=== PATIENT | male | born 1940 | race Caucasian/White ===

== ENCOUNTER → 2016-11-16 | Outpatient (CLI) | payer MEDICARE ==
[2015-12-19 15:08] VITALS: BP 136/58
[~2016-11-16] MED LIST: ASCO10002 PO; ASPI-482 PO; CALC-159 PO; COCO1000 PO; ESOM40CA PO; EZET10TA3 PO; GEMF600T3 PO; KRIL500C PO; LOSA100T6 PO; METO-269 PO; MULT-246 PO; PROP150T2 PO; SILO8CAP PO; UBID200C4 PO; VITA400C36 PO
--- NOTE | 2016-11-16 09:58 | RAD ---
Bilateral lower extremity arterial Doppler History: Peripheral vascular disease, claudication. Comparison: 11/19/2015 Findings: Grayscale, color Doppler, and spectral Doppler imaging was performed of the arteries of both lower extremities. The common femoral artery, superficial femoral artery, profunda femoral artery, popliteal artery, peroneal artery, anterior tibial artery, posterior tibial artery, and dorsalis pedis artery were evaluated. Arteries of the right lower extremity demonstrate that the right common femoral artery and profunda femoral artery demonstrate biphasic waveforms. The proximal right superficial femoral artery demonstrates triphasic waveforms while the mid and distal superficial femoral artery demonstrate monophasic waveforms as do the more distal arteries. There is a focal elevation of velocity at the right popliteal artery suggesting hemodynamically significant stenosis. Right posterior tibial artery is occluded. Arteries of left lower extremity are patent. The left common femoral artery demonstrates biphasic waveforms. The left superficial femoral artery demonstrate biphasic waveforms and presence of stent which is patent. Left popliteal artery demonstrates biphasic waveforms. The following velocities were obtained: Right common femoral artery 190 cm/sec Right superficial femoral artery 144 cm/sec Right popliteal artery 378 cm/sec Right posterior tibial artery occluded Right dorsalis pedis artery 28 cm/sec Left common femoral artery 133 cm/sec Left superficial femoral artery 145 cm/sec Left popliteal artery 177 cm/sec Left posterior tibial artery 89 cm/sec Left dorsalis pedis artery 121 cm/sec Impression: 1. Elevated velocity seen involving the right popliteal artery, compatible with focal, hemodynamically significant stenosis estimated at greater than 50%. 2. Right posterior tibial artery is chronically occluded. 3. Left superficial femoral arterial stent is patent. All arteries of left lower extremity are patent.
== END | disposition home or self-care (01) ==
LOC: US 08:44
PROVIDERS: ATTEND Internal Medicine Cardiovascular Disease
DX: I73.9 Peripheral vascular disease, unspecified (principal)
CPT/HCPCS: 93925

== ENCOUNTER 2016-12-23 08:27 | Outpatient (CLI) | payer MEDICARE ==
[~2016-12-23] VITALS: Ht 182.9 cm; Wt 113.4 kg
[2016-12-23] VITALS (10 sets, daily range): BP systolic 150–200; BP diastolic 60–81
[~2016-12-23 08:27] MED LIST changes: +EZET10TA18 PO; -EZET10TA3 PO; -UBID200C4 PO; +UBID200C7 PO
[2016-12-23 09:10] LABS: BASO % 0 % (0-3); EOS % 2 % (0-3); HEMATOCRIT 39.6 % (39.0-53.0); LYMPH # 1.6 x10^3/uL (1.0-4.8); LYMPH % 19 % (24-48); MEAN CORPUSCULAR HEMOGLOBIN 30 pg (25-35); MEAN CORPUSCULAR HGB CONC 33 g/dL (31-37); MEAN CORPUSCULAR VOLUME 92 fL (79-100); MONO % 10 % (0-9); NEUT % 70 % (31-73); PLATELET COUNT 326 x10^3/uL (140-400); RED BLOOD COUNT 4.31 x10^6/uL (4.30-5.70); RED CELL DISTRIBUTION WIDTH 14.5 % (11.5-14.5); WHITE BLOOD COUNT 8.6 x10^3/uL (4.0-11.0)
[2016-12-23 09:18] LABS: CALCIUM 8.9 mg/dL (8.5-10.1)
[2016-12-23 09:19] LABS: GFR 32.7; POTASSIUM 4.7 mmol/L (3.5-5.1)
[2016-12-23 09:24] LABS: ALBUMIN 3.5 g/dL (3.4-5.0); TOTAL BILIRUBIN 0.3 mg/dL (0.2-1.0)
[2016-12-23 09:59] LABS: INR 1.3 (0.8-1.1)
[2016-12-23] MEDS ORDERED: LIDOCAINE 1% / SOD BICARB 8.4% 20 ML VIAL. IJ ONE ×2 (10:15→11:00)
[2016-12-23] MEDS ORDERED: HEPARIN for ARTERIAL LINE 1,500 ML ONE (10:15)
[2016-12-23] MEDS ORDERED: IODIXANOL 320 MG/ML 100 ML VIAL. ONE (10:15)
[2016-12-23] MEDS ORDERED: MIDAZOLAM HCL/PF 5 MG/5 ML VIAL. ONE (10:17)
[2016-12-23] MEDS ORDERED: fentaNYL PF VIAL 250 MCG/5 ML VIAL ONE (10:18)
[2016-12-23] MEDS ORDERED: ESOM40CA PO (10:19)
[2016-12-23] MEDS ORDERED: SILO8CAP PO (10:19)
[2016-12-23] MEDS ORDERED: HYDR-2766 PO (10:19)
[2016-12-23] MEDS ORDERED: CLOP75TA PO (10:19)
[2016-12-23] MEDS ORDERED: TEST200V3 IM (10:19)
[2016-12-23] MEDS ORDERED: IV NORMAL SALINE 1000ML BAG 1,000 ML IV ONE (10:30)
[2016-12-23] MEDS ORDERED: fentaNYL PF VIAL 250 MCG/5 ML VIAL IV ONE (11:00)
[2016-12-23] MEDS ORDERED: IODIXANOL 320 MG/ML 100 ML VIAL. IART ONE (11:00)
[2016-12-23] MEDS ORDERED: MIDAZOLAM HCL/PF 5 MG/5 ML VIAL. IV ONE (11:00)
[2016-12-23] MEDS ORDERED: HEPARIN for IV BOLUS 10,000 UNIT/10 ML VIAL. ONE (11:03)
[2016-12-23] MEDS ORDERED: HEPARIN for IV BOLUS 10,000 UNIT/10 ML VIAL. IV ONE (11:30)
--- NOTE | 2016-12-24 08:10 | RAD ---
12/23/2016 1. Pelvic angiography (CO2 angiography) 2. Right lower extremity angiography 3. Conventional and subsequent drug coated balloon Angioplasty of a high-grade stenosis of the above the knee right popliteal artery Indication: Recurrent right lower extremity calf claudication Discussion: The risks and benefits of the procedure including bleeding, vascular injury, pain, and contrast neuropathy were discussed the patient. Informed consent was obtained. 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 The patient was brought to the fluoroscopy suite and placed in supine position. A timeout procedure was performed. The left groin was prepped and draped using maximum sterile barrier technique. Ultrasound and fluoroscopic guidance was used to achieve left common femoral arterial access. 5 Ecuadorean vascular sheath was placed. Angiography confirmed access site. Nominal flush catheter was advanced to the inferior aorta. CO2 angiography of the pelvis was performed. Aorta and bilateral common iliac arteries demonstrate mild areas of ectasia with minimal proximal common iliac artery stenosis, similar to prior studies. External iliac arteries are patent. Common femoral arteries are patent. Omni Flush catheter and Skulptson wire were used to cross the aortic bifurcation. Right lower extremity CO2 angiography was initially performed demonstrating no lesion of the proximal SFA. Contrast angiography was then performed demonstrating minimal nonflow limiting stenosis in the mid SFA and high-grade stenosis of the above the knee popliteal artery at the junction of the SFA and popliteal artery. The posterior tibial artery is occluded. The anterior tibial artery is patent. Peroneal artery appears patent to the mid leg. A 6 Ecuadorean Ansell 2 up and over sheath was placed into the right SFA. The high-grade stenosis of the popliteal artery was crossed with an advantage glide wire. Balloon angioplasty was performed with 4 x 40 mm balloon. The lesion responded well to conventional angioplasty with only minimal residual narrowing. Angioplasty was repeated with a 4 mm drug-eluting balloon demonstrating significantly improved flow morphology of the lesion with respect to original angiograms. No significant residual narrowing was seen. The wire and sheath were then removed. Hemostasis of the left groin was achieved following deployment of an Angio-Seal device. No immediate complications were identified. The patient tolerated the procedure well. Fluoroscopy time: 12.0 minutes. DAP: 462 Gycm2 The procedure was performed conscious sedation including continuous cardiopulmonary monitoring via a dedicated sedation nurse. Sedation time 1 hour 20 minutes. 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
== END 2016-12-23 15:15 | disposition home or self-care (01) ==
LOC: INTRAD 08:27
PROVIDERS: ATTEND Specialist
DX: I70.211 Atherosclerosis of native arteries of extremities with intermittent claudication, right leg (principal); E78.00 Pure hypercholesterolemia, unspecified; Z87.39 Personal history of other diseases of the musculoskeletal system and connective tissue; Z96.642 Presence of left artificial hip joint; K21.9 Gastro-esophageal reflux disease without esophagitis; I12.9 Hypertensive chronic kidney disease with stage 1 through stage 4 chronic kidney disease, or unspecified chronic kidney disease; E11.22 Type 2 diabetes mellitus with diabetic chronic kidney disease; N18.9 Chronic kidney disease, unspecified; Z88.0 Allergy status to penicillin; Z88.8 Allergy status to other drugs, medicaments and biological substances
CPT/HCPCS: 36415; 37224; 75625; 75710; 76937; 80053; 85027; 85610; 99152; 99153; C1713; C1725; C1760; C1769; C1892; C1894; C2623; G0269; J2250; J3010; J7030; Q9967; C1887; J1644

== ENCOUNTER → 2017-08-09 | Outpatient (CLI) | payer MEDICARE | END | disposition home or self-care (01) | LOC: ECHO 08:55 | DX: I10 Essential (primary) hypertension (principal); I27.20 Pulmonary hypertension, unspecified; I08.3 Combined rheumatic disorders of mitral, aortic and tricuspid valves; I70.0 Atherosclerosis of aorta | CPT/HCPCS: 93306 ==

== ENCOUNTER → 2018-06-07 | Outpatient (CLI) | payer MEDICARE ==
[2016-12-23 14:30] VITALS: BP 180/80
[~2018-06-07] MED LIST changes: +CLOP75TA PO; -GEMF600T3 PO; +GEMF600T8 PO; +HYDR-2769 PO; +LOSA100T14 PO; -LOSA100T6 PO; -SILO8CAP PO; +SILO8CAP2 PO; +TEST200V3 IM
--- NOTE | 2018-06-12 10:07 | PATHOLOGY ---
[facility] Accession Number: [id number] . 01 Material submitted: . LEFT FOOT WOUND . 01 Clinical history: . Gout L foot, cyst . 02 Diagnosis: Soft tissue, "left foot wound", debridement: - Acute abscess and associated fibrin. - Possible crystalline material present (please see comment). (SK:rupali; 06/09/2018) [facility]/06/09/2018 . 02 Comment: Possible crystalline material is present which could be consistent with gout, however, identification of gout crystals requires that the specimen be submitted in alcohol. (SKM:rupali; 06/09/2018) . 02 Electronically signed: . Ernie Eden MD, Pathologist NPI- [id number] . 01 Gross description: . The specimen is received in formalin, labeled "Dru Bardales, L foot wound". Received are multiple segments of pale mack to yellow-mack soft tissue measuring 2.0 x 1.3 x 0.5 cm in aggregate dimensions. The specimen is filtered and entirely submitted in cassette A1. ([facility]; 06/08/2018) QAC/QAC . 02 Pathologist provided ICD-10: L02.612 . 02 CPT . 974898 Specimen Comment: A courtesy copy of this report has been sent to Specimen Comment: [phone], . Specimen Comment: Report sent to / DR KLEIN Specimen Comment: A duplicate report has been generated due to demographic updates. Performed at: [address], [place], [place] [id number] MD Alfred Roberts MD Phone: [phone] Performed at: 02 [facility] [address] [place], [place] [id number] MD Vik Gómez MD Phone: [phone]
== END | disposition home or self-care (01) ==
LOC: SPEC 13:38
PROVIDERS: ATTEND Podiatrist
DX: L02.612 Cutaneous abscess of left foot (principal)
CPT/HCPCS: 88304

== ENCOUNTER → 2018-06-14 | Outpatient (CLI) | payer MEDICARE ==
[2016-12-23 14:30] VITALS: BP 180/80
--- NOTE | 2018-06-19 15:07 | PATHOLOGY ---
[facility] Accession Number: [id number] . 01 Material submitted: . GOUT CRYSTALS LEFT FOOT . 01 Clinical history: . Gout . 02 Diagnosis: Tissue from left foot: - Necrotic tissue with focal acute inflammation. [facility]/06/19/2018 . 02 Comment: No gout crystals are identified. (JPM:[facility] 06/19/2018) . 02 Electronically signed: . Vik Gómez MD, Pathologist NPI- [id number] . 01 Gross description: . The specimen is received, labeled "Dru Bardales". The site is designated on the requisition as, "left foot". Received is a slight amount of white-mack chalky material admixed with possible soft tissue measuring 0.7 x 0.6 x 0.1 cm in aggregate dimensions. The specimen is filtered and entirely submitted in cassette A1. The specimen is lodaded onto the process in 70% alcohol and is not exposed to formalin. ([facility]; 06/16/2018) QAC/QAC . 02 Pathologist provided ICD-10: I96 . 02 CPT . 155039 Specimen Comment: A courtesy copy of this report has been sent to Specimen Comment: [phone], . Specimen Comment: Report sent to and Specimen Comment: A duplicate report has been generated due to demographic updates. Performed at: 01 [facility] [address] [facility] [address], [place] [id number] MD Alfred Roberts MD Phone: [phone] Performed at: [address] [facility] [address] [place], [place] [id number] MD Vik Gómez MD Phone: [phone]
== END | disposition home or self-care (01) ==
LOC: SPEC 16:03
PROVIDERS: ATTEND Podiatrist
DX: I96 Gangrene, not elsewhere classified (principal)
CPT/HCPCS: 88304

== ENCOUNTER 2018-09-06 12:33 | Inpatient (IN) | payer MEDICARE ==
[~2018-09-06] VITALS: Ht 182.9 cm; Wt 103.2 kg
--- NOTE | 2018-09-06 12:57 | EKG ---
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
--- NOTE | 2018-09-06 13:19 | RAD ---
Single view of the chest. 09/06/2018 1:03 PM Indication: CHEST PAIN Comparison: Chest radiograph August 22, 2011 Findings: No new focal consolidation or infiltrate is seen. No pleural effusion or pneumothorax is identified. Heart is mildly enlarged. Prior median sternotomy noted. Patchy opacities throughout the bilateral lungs are stable going back to 2011, likely representing pleural parenchymal scarring. Component of pleural calcification may be present. Impression: Stable radiographic appearance of the chest without evidence of acute cardiopulmonary process Electronically signed by: Emir Baltazar MD (09/06/2018 1:16 PM) [facility]
[2018-09-06 13:20] LABS: BASO % 0 % (0-3); EOS # 0.1 x10^3/uL (0.0-0.7); EOS % 2 % (0-3); HEMATOCRIT 36.3 % (39.0-53.0); HEMOGLOBIN 11.7 g/dL (13.0-17.5); LYMPH # 1.2 x10^3/uL (1.0-4.8); LYMPH % 15 % (24-48); MEAN CORPUSCULAR HEMOGLOBIN 30 pg (25-35); MEAN CORPUSCULAR HGB CONC 32 g/dL (31-37); MEAN CORPUSCULAR VOLUME 94 fL (79-100); MONO # 0.7 x10^3/uL (0.0-1.1); MONO % 9 % (0-9); NEUT # 5.6 x10^3uL (1.8-7.7); NEUT % 73 % (31-73); PLATELET COUNT 252 x10^3/uL (140-400); RED BLOOD COUNT 3.86 x10^6/uL (4.30-5.70); RED CELL DISTRIBUTION WIDTH 15.7 % (11.5-14.5); WHITE BLOOD COUNT 7.7 x10^3/uL (4.0-11.0)
[2018-09-06 13:24] LABS: CALCIUM 9.5 mg/dL (8.5-10.1); CREATININE 2.1 mg/dL (0.7-1.3); GFR 30.8
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
[2018-09-06 13:29] LABS: PROTHROMBIN TIME PATIENT 15.5 SEC (11.7-14.0)
[2018-09-06 13:31] LABS: ALBUMIN 3.8 g/dL (3.4-5.0); ALBUMIN/GLOBULIN RATIO 1.1 (1.0-1.7); MAGNESIUM 2.2 mg/dL (1.8-2.4); TOTAL BILIRUBIN 0.7 mg/dL (0.2-1.0); TOTAL PROTEIN 7.4 g/dL (6.4-8.2)
--- NOTE | 2018-09-06 13:32 | PDOC2 ---
KEENAN LORD FORK LIFT MECHANIC 09/06/18 1332: CARDIAC CONSULT DATE OF CONSULT Date of Consult DATE: 09/06/18 TIME: 13:23 REASON FOR CONSULT Reason for Consult: Arrhythmia REFERRING PHYSICIAN Referring Physician: Corby SOURCE Source: Chart review, Patient HISTORY OF PRESENT ILLNESS HISTORY OF PRESENT ILLNESS This is a pleasant 78 yo male admitted for complains of shortness of breath. Reports that in the last 3-4 days he has been having PND, orthopnea. He is mainly a side lying when he sleeps due to his spinal issue but he has been getting more often in the last few days. Positive for leg swelling and he is not on any diuretics. Positive for ROBERTS. He went to his PCP and told her his symptoms and EKG was done and noted irregular rhythm/. He has notfolowed up recently with any winch stripper except for vascular surgery , Dr Maurer who has been managing his PAD and recently had appears to be CASH POSTER to his LLE and also needing his RLE at some point. He has a poor healing wound to his doral right foot and also has issue with gout. Reports he used to see Dr. Soto. He has never been told of any significant arrhythmias nor any need for AICD but was placed on amiodarone and statin before but was not able to tolerate and at home he is on rythmol and toprol and was noted with EF of 35% in the past. He has not had any LHC or stress test since his CABG in 2010. Denies any palpitations, nausea or vomiting and no passing out but has been having some dizziness at times. No chest pain or jaw tightness. PAST MEDICAL HISTORY Cardiovascular: CAD, HTN, Hyperlipidemia, Valve insufficiency, Other (PAD) GI: Constipation, GERD Hepatobiliary: No pertinent hx Psych: No pertinent hx Musculoskeletal: Osteoarthritis Rheumatologic: Gout Infectious disease: No pertinent hx ENT: Other (sinusitis) Renal/: Chronic renal insuff, Benign prostatic enlarg. PAST SURGICAL HISTORY Past Surgical History: Arthroscopy (right), CABG (x2 in 2010), Total hip replacement (left), Other (CASH POSTER right popliteal; LSFA stent; neck fusion; recent LLE percutaneous CASH POSTER per Dr. Maurer at [facility]) FAMILY HISTORY Family History: Heart Disease SOCIAL HISTORY Smoke: Quit (remotely) ALCOHOL: none Drugs: None Lives: with Family ALLERGIES ALLERGIES: Coded Allergies: Penicillins (Verified Allergy, Intermediate, rash, 09/06/18) amiodarone (Verified Allergy, Intermediate, 12/23/16) ROS Review of System 14 point ROS evaluated with pertinent positives noted per HPI PHYSICAL EXAM General: Alert, Oriented X3, Cooperative, No acute distress HEENT: Atraumatic, Mucous membr. moist/pink Lungs: Other (faint basilar crackles) Heart: Regular rate, Other (S4, 3/6 systolic murmur to LLS border) Abdomen: Soft, No tenderness Extremities: No cyanosis, Other (3+ bilateral Le pitting edema) Skin: Other (Left foot poor healing ulcer) Neuro: Normal speech, Sensation intact Psych/Mental Status: Mental status NL, Mood NL MUSCULOSKELETAL: Osteoarthritic changes both hands VITALS VITALS Vital Signs Date Time Temp Pulse Resp B/P (MAP) Pulse Ox O2 Delivery O2 Flow Rate FiO2 09/06/18 12:54 97.8 57 19 134/63 (86) 97 Nasal Cannula 2.0 97.8 ECHOCARDIOGRAM ECHOCARDIOGRAM <Conclusion> The ejection fraction is moderately impaired. The Ejection Fraction is 35%. There is moderate to severe concentric left ventricular hypertrophy. Transmitral Doppler flow pattern is Grade IV-fixed restrictive diastolic dysfunction. The right ventricle is mildly dilated. Systolic function is mildly reduced. The left atrium is mildly dilated. The right atrium is mildly dilated. The aortic valve is calcified and the structures were poorly visualized Doppler and Color Flow revealed mild aortic regurgitation. This was a suboptimal doppler interrogation of the aortic valve and I cannot asses for aortic valve stenosis The mitral valve is moderately thickened. Mitral annular calcification is mild. Doppler and Color-flow revealed mild to moderate mitral regurgitation. Doppler and Color Flow revealed mild tricuspid regurgitation. The PA pressure was estimated at 35 mmHg. Mild Pulmonary HTN Suboptimal Doppler and Color Flow interrogation revealed pulmonic valvular regurgitation but difficult to quantify There is no evidence of significant pericardial effusion. DATE: 08/09/17 1636 ASSESSMENT/PLAN ASSESSMENT/PLAN 1. Acute on chronic systolic/diastolic CHF: no home diuretics 2. NSTEMI: initial trop at 0.399 3. PAFIB: noted with slow AFIB at PCPs office. also with junctional rhythm at 60s currently 4. DANNA on CKD 3: followed by Dr. Stewart as outpt 5. CAD: CABGx2 in 2010 6. HTN: controlled 7. HLP 8. DM. 2: diet controlled 9. Intolerant to amiodarone and statin 10. PAD with left foot ulcer: recent percutaneous revasc per Dr. Maurer at [facility] Recommendations 1. Continue toprol at lower dose. DC rythmol. 2. Monitor rhythm. TTE, TSH, lipids 3. Continue ASA and plavix. 4. Consult nephrology, lasix therapy 5. will need ischemic workup, MPI vs LHC but will take into account his renal function. will discuss with primary winch stripper 6. Lovenos x1. Norvasc x1. Hydralazine IV prn RONALDO DANIEL MD 09/06/187: CARDIAC CONSULT ASSESSMENT/PLAN ASSESSMENT/PLAN Pt. seen and examined. Agree with above ARMOR OFFICER note. 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 Symptoms consistent with HF. Would first continue medical therapy. PLan for MPI when more medically stable and if he has significant ischemia, could then offer LHC, otherwise medical therapy and plan for possible ICD on an outpt basis. KEENAN LORD APRN Sep 06, 2018 13:32 RONALDO ADNIEL MD Sep 06, 2018 18:17
[2018-09-06 13:39] LABS: CREATINE KINASE 50 U/L (39-308); FREE T4 0.91 ng/dL (0.76-1.46); THYROID STIM HORMONE (TSH) 3.227 uIU/mL (0.358-3.74)
[2018-09-06] MEDS ORDERED: IV NORMAL SALINE 1000ML BAG 1,000 ML IV SCH (14:10)
[2018-09-06] MEDS ORDERED: FUROSEMIDE 40 MG/4 ML VIAL. IVP ONE (14:15)
[2018-09-06] MEDS ORDERED: MORPHINE SULFATE 4 MG/ML VIAL. IV PRN (14:15)
[2018-09-06] MEDS ORDERED: ONDANSETRON PF 4 MG/2 ML VIAL. IV PRN ×2 (14:15→14:30)
--- NOTE | 2018-09-06 15:43 | HP ---
ADMIT DATE: 09/06/2018 CHIEF COMPLAINT: Shortness of breath. HISTORY OF PRESENT ILLNESS: The patient is a pleasant 78-year-old male well known to my service. He presents with shortness of breath. He has some associated swelling and abdominal distention. He is very weak. It has been occurring for several days. Moving makes it worse and still makes it better. Describes as irritating. I discussed the case with ER physician. It appears the patient is in heart failure once again. He is also bradycardic. We are going to admit the patient and consult Cardiology. PAST MEDICAL HISTORY: CHF, coronary bypass surgery, GERD, hypertension, hyperlipidemia, cardiac valve insufficiency, peripheral artery disease, osteoarthritis, chronic renal insufficiency, BPH, right leg surgery, total hip replacement, popliteal TPA, and a cervical fusion. ALLERGIES: AMIODARONE AND PENICILLIN. FAMILY HISTORY: Coronary artery disease. SOCIAL HISTORY: Does not drink, smoke or take drugs. He is . He is retired. MEDICATIONS: Reviewed. He is on 20 including Rapaflo, Plavix, propranolol, Zetia, gemfibrozil, Toprol-XL, losartan, aspirin, hydrocodone, calcium, Nexium, testosterone vitamins. REVIEW OF SYSTEMS: GENERAL: No history of weight change, weakness or fevers. SKIN: No bruising, hair changes or rashes. EYES: No blurred, double or loss of vision. NOSE AND THROAT: No history of nosebleeds, hoarseness or sore throat. HEART: He complains of palpitations. LUNGS: He complains of shortness of breath. GASTROINTESTINAL: Denies changes in appetite, nausea, vomiting, diarrhea or constipation. GENITOURINARY: No history of frequency, urgency, hesitancy or nocturia. NEUROLOGIC: Denies history of numbness, tingling, tremor or weakness. PSYCHIATRIC: No history of panic, anxiety or depression. ENDOCRINE: No history of heat or cold intolerance, polyuria or polydipsia. EXTREMITIES: Denies muscle weakness, joint pain, pain on walking or stiffness. PHYSICAL EXAMINATION: VITAL SIGNS: Temperature afebrile, pulse 54, respirations 20, blood pressure 134/60. GENERAL: He is alert, cooperative. His is present. HEART: Normal S1, S2, bradycardic. LUNGS: Coarse. ABDOMEN: Soft and distended. EXTREMITIES: 2+ edema. SKIN: No rashes. ENDOCRINE: No thyromegaly. LYMPHATICS: No cervical nodes. HEMATOPOIETIC: No bruising. PSYCHIATRIC: Stable. LABORATORY DATA: Hemoglobin is 11.7. BUN is high at 27, creatinine high at 2.1, glucose high at 129. BNP 5291. Chest x-ray shows vascular congestion. Troponin is 0.39. ASSESSMENT AND PLAN: Evieq-dq-[id number] systolic and diastolic heart failure. The patient is being admitted. We will use IV Lasix. Consult Cardiology. Cardiac enzymes, echocardiogram, serial EKGs. Deep venous thrombosis prophylaxis. We will resume home meds other than the ones that have a negative chronotropic effect. Frequent labs. PT, OT. PROGNOSIS: Guarded. JOLEEN ROSENBERG DO DR: NACHO/natasha JOB#: [id number] / [id number]
--- NOTE | 2018-09-06 16:58 | CARD ---
MR#: [id number] Date of Study: 09/06/2018 Ordering Physician: KEENAN LORD, Referring Physician: BRENDA PALM Tech: Josefina Harris HEATHER APPROVED REPORT EXAM: Two-dimensional and M-mode echocardiogram with Doppler and color Doppler. Other Information Quality : Good INDICATION Arrhythmia 2D DIMENSIONS RVDd3.1 (2.9-3.5cm)Left Atrium(2D)4.6 (1.6-4.0cm) IVSd1.3 (0.7-1.1cm)Aortic Root(2D)2.6 (2.0-3.7cm) LVDd5.5 (3.9-5.9cm)LVOT Diameter2.2 (1.8-2.4cm) PWd1.1 (0.7-1.1cm)LVDs4.5 (2.5-4.0cm) FS (%) 18.7 %SV56.9 ml Aortic Valve AoV Peak Tim.137.7cm/sAoV VTI29.5cm AO Peak GR.7.6mmHgLVOT Peak Tim.90.5cm/s AO Mean GR.3mmHgAVA (VMAX)2.46cm2 LAURA (VTI)3.28aj6RQ P 1/2 Eyny169yk Mitral Valve MV E Iqvqagnn862.7cm/sMV DECEL QTOQ740vq MV A Fprqdiex30.5cm/sE/A Ratio3.1 Tricuspid Valve TR P. Qyckjbks652rs/sRAP QYAZNWJA2hiSu TR Peak Gr.34csTqYYBG05rnZu LEFT VENTRICLE The Left Ventricle is borderline dilated. There is normal left ventricular wall thickness. Left ventr icle systolic function is moderate to severely impaired. The Ejection Fraction is estimated at 30%. T here is global hypokinesis of the left ventricle. RIGHT VENTRICLE The right ventricle is mildly dilated. The right ventricular systolic function is normal. ATRIA The left atrium is mildly dilated. The right atrium is mildly dilated. The interatrial septum is inta ct with no evidence for an atrial septal defect or patent foramen ovale as noted on 2-D or Doppler im aging. AORTIC VALVE The aortic valve is mildly thickened but opens well. Doppler and Color Flow revealed mild aortic regu rgitation. There is no significant aortic valvular stenosis. MITRAL VALVE The mitral valve is calcified but opens well. Mitral annular calcification is mild. There is no evide nce of mitral valve prolapse. There is no mitral valve stenosis. Doppler and Color-flow revealed mild mitral regurgitation. TRICUSPID VALVE The tricuspid valve is normal in structure and function. Doppler and Color Flow revealed mild tricusp id regurgitation. The PA pressure was estimated at 50 mmHg. There is no tricuspid valve stenosis. PULMONIC VALVE The pulmonic valve is not well visualized. Doppler and Color Flow revealed mild pulmonic valvular reg urgitation. There is no pulmonic valvular stenosis. GREAT VESSELS The aortic root is normal in size. The ascending aorta is normal in size. The IVC is dilated and zeina apses >50% with inspiration. PERICARDIAL EFFUSION There is no evidence of significant pericardial effusion. Critical Notification Critical Value: No <Conclusion> The Left Ventricle is borderline dilated. Left ventricle systolic function is moderate to severely impaired. The Ejection Fraction is estimated at 30%. There is global hypokinesis of the left ventricle. There is no significant aortic valvular stenosis. Doppler and Color Flow revealed mild aortic regurgitation. Doppler and Color-flow revealed mild mitral regurgitation. Doppler and Color Flow revealed mild tricuspid regurgitation. The PA pressure was estimated at 50 mmHg. Signed by : Kenneth Christy MD Electronically Approved : 09/06/2018 16:58:20
[2018-09-06] MEDS ORDERED: hydrALAZINE 20 MG/ML VIAL. IVP PRN (17:45)
[2018-09-06] MEDS ORDERED: amLODIPine BESYLATE 5 MG TABLET PO ONE (17:45)
[2018-09-06 20:15] VITALS: BP 155/70
--- NOTE | 2018-09-06 20:56 | NUR ---
consult called to dr lira
[2018-09-06] MEDS ORDERED: CEPH500C PO (21:37)
[2018-09-06] MEDS ORDERED: TAMS0.4C97 PO (21:37)
[2018-09-06] MEDS ORDERED: ALLO100T PO (21:37)
[2018-09-06] MEDS ORDERED: AMLO5TAB10 PO (21:37)
[2018-09-06 23:15] VITALS: BP 164/70
[2018-09-07 03:48] VITALS: BP 166/72
[2018-09-07 07:23] VITALS: BP 146/59
--- NOTE | 2018-09-07 08:37 | EKG ---
[facility] [address] [place] [address] Test Date: 2018-09-06 Test Time: 14:57:00 Pat Name: KATHRYN MEEKS Department: Room: 254 1 Gender: M Branch Operations Coordinator: : 1940 Requested By: JOLEEN ROSENBERG Order Number: [id number] Reading MD: Abhi Richter MD Measurements Intervals [place] Rate: 46 P: MN: QRS: 66 QRSD: 112 T: -25 QT: 466 QTc: 409 Interpretive Statements IRREGULAR RHYTHM, NO P-WAVE FOUND NON-SPECIFIC ST/T CHANGES Electronically Signed On 09-08-2018 16:32:47 CDT by Abhi Richter MD
[2018-09-07] MEDS: ASPIRIN ENTERIC COATED 81 MG TABLET.DR. PO SCH (08:42)
[2018-09-07] MEDS: CLOPIDOGREL BISULFATE 75 MG TABLET PO SCH (08:42)
[2018-09-07] MEDS: FUROSEMIDE 40 MG/4 ML VIAL. IVP SCH (08:43)
[2018-09-07] MEDS: METOPROLOL SUCC 24HR ER 25 MG TAB.ER.24H. PO SCH ×2 (08:43→15:16)
[2018-09-07] MEDS: LOSARTAN POTASSIUM 50 MG TABLET. PO SCH (08:43)
[2018-09-07] MEDS ORDERED: METO50TA4 PO (10:38)
--- NOTE | 2018-09-07 10:48 | PDOC ---
GEM MULLEN BACK PADDER 09/07/18 1048: CARDIO Progress Notes Date and Time Date of Service 09/07/18 Time of Evaluation 1015 Subjective Subjective: No Chest Pain, No Palpitations, Other (SOA improved significantly) Vitals Vitals Vital Signs Date Time Temp Pulse Resp B/P (MAP) Pulse Ox O2 Delivery O2 Flow Rate FiO2 09/07/18 08:43 74 146/59 09/07/18 08:00 Nasal Cannula 2.0 09/07/18 07:23 98.1 18 100 98.1 Weight Weight [ ] Input and Output Intake and Output Intake and Output 09/07/18 07:00 Intake Total 100 ml Output Total 2650 ml Balance -2550 ml Intake Oral 100 ml Output Urine Total 2650 ml # Voids 3 Laboratory Labs Laboratory Tests Test 09/06/18 13:00 09/06/18 21:05 White Blood Count 7.7 x10^3/uL (4.0-11.0) Red Blood Count 3.86 x10^6/uL (4.30-5.70) Hemoglobin 11.7 g/dL (13.0-17.5) Hematocrit 36.3 % (39.0-53.0) Mean Corpuscular Volume 94 fL (79-100) Mean Corpuscular Hemoglobin 30 pg (25-35) Mean Corpuscular Hemoglobin Concent 32 g/dL (31-37) Red Cell Distribution Width 15.7 % (11.5-14.5) Platelet Count 252 x10^3/uL (140-400) Neutrophils (%) (Auto) 73 % (31-73) Lymphocytes (%) (Auto) 15 % (24-48) Monocytes (%) (Auto) 9 % (0-9) Eosinophils (%) (Auto) 2 % (0-3) Basophils (%) (Auto) 0 % (0-3) Neutrophils # (Auto) 5.6 x10^3uL (1.8-7.7) Lymphocytes # (Auto) 1.2 x10^3/uL (1.0-4.8) Monocytes # (Auto) 0.7 x10^3/uL (0.0-1.1) Eosinophils # (Auto) 0.1 x10^3/uL (0.0-0.7) Basophils # (Auto) 0.0 x10^3/uL (0.0-0.2) Prothrombin Time 15.5 SEC (11.7-14.0) Prothromb Time International Ratio 1.3 (0.8-1.1) Sodium Level 141 mmol/L (136-145) Potassium Level 5.0 mmol/L (3.5-5.1) Chloride Level 103 mmol/L (98-107) Carbon Dioxide Level 27 mmol/L (21-32) Anion Gap 11 (6-14) Blood Urea Nitrogen 27 mg/dL (8-26) Creatinine 2.1 mg/dL (0.7-1.3) Estimated GFR (Cockcroft-Gault) 30.8 BUN/Creatinine Ratio 13 (6-20) Glucose Level 129 mg/dL (70-99) Calcium Level 9.5 mg/dL (8.5-10.1) Magnesium Level 2.2 mg/dL (1.8-2.4) Total Bilirubin 0.7 mg/dL (0.2-1.0) Aspartate Amino Transf (AST/SGOT) 18 U/L (15-37) Alanine Aminotransferase (ALT/SGPT) 25 U/L (16-63) Alkaline Phosphatase 102 U/L (46-116) Creatine Kinase 50 U/L (39-308) Creatine Kinase MB (Mass) 1.6 ng/mL (0.0-3.6) Creatine Kinase MB Relative Index % (0-4) Troponin I Quantitative 0.399 ng/mL (0.000-0.055) 0.377 ng/mL (0.000-0.055) OT-Chh-N-Type Natriuretic Peptide 5291 pg/mL (0-449) Total Protein 7.4 g/dL (6.4-8.2) Albumin 3.8 g/dL (3.4-5.0) Albumin/Globulin Ratio 1.1 (1.0-1.7) Triglycerides Level 100 mg/dL (0-150) Cholesterol Level 121 mg/dL (0-200) LDL Cholesterol, Calculated 77 mg/dL (0-100) VLDL Cholesterol, Calculated 20 mg/dL (0-40) Non-HDL Cholesterol Calculated 97 mg/dL (0-129) HDL Cholesterol 24 mg/dL (40-60) Cholesterol/HDL Ratio 5.0 Lipase 148 U/L (73-393) Thyroid Stimulating Hormone (TSH) 3.227 uIU/mL (0.358-3.74) Free Thyroxine 0.91 ng/dL (0.76-1.46) Physical Exam HEENT: Neck Supple W Full Motion Chest: Symmetric LUNGS: Other (faint bibasilar crackles) Heart: S1S2, murmurs (2/6 systolic murmur ), irregularly irregular (AFIB/ flutter) Abdomen: Soft N/T Extremities: Other (2+ bilateral LE edema ) Neurology: alert, oriented, follow commands Assessment Assessment 1. Acute on chronic systolic/diastolic CHF; LVEF 30%. better compensated following diuresis. -2.5 L overall 2. NSTEMI: trop peak 0.399. CP free 3. PAFIB: remains in AFIB/flutter rate near 60. 4. DANNA on CKD 5. CAD: CABGx2 in 2010 6. HTN: mildly elevated 7. HLP 8. DM, II Recommendations BMP Continue diuresis Secondary prevention including ASA, plavix, BB, and ARB. Ischemic workup with stress test today to r/o ischemia Received Lovenox last night. Start OAC with Eliquis pending stress test results. Supportive care RONALDO DANIEL MD 09/07/18 1649: CARDIO Progress Notes Plan Plan Pt. seen and examined. 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 Doing better now. His Cr is improving. Will ask nephrology to see him to determine his BP meds, (apparently Dr. Stewart stopped his losartan and put him on amlodipine) Will obtain outpt muga scan in 3 months to determine EF and need for ICD due to echo/MPI discrepancy. Supportive care. GEM MULLEN APRN Sep 07, 2018 10:48 RONALDO DANIEL MD Sep 07, 2018 16:49
[2018-09-07 11:08] VITALS: BP 118/64
--- NOTE | 2018-09-07 12:00 | PDOC ---
PROGRESS NOTES Chief Complaint Chief Complaint ASSESSMENT AND PLAN: [id number] systolic and diastolic heart failure. Ejection Fraction is estimated at 30%.global hypokinesis of the left ventricle. There is a large sized, basal to distal inferior, inferolateral and lateral FIXED perfusion defect suggestive of prior infarct with mild davian-infarct viability. The PA pressure was estimated at 50 mmHg. 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 CKD stage3- 4 DANNA on CKD 3: followed by Dr. Stewart as outpt CAD: CABGx2 in 2010 HTN: Hyperlipidemia DM. 2: diet controlled PAD with left foot ulcer: recent percutaneous revascularization per Dr. Maurer at [facility] hypoxic resp failure malignant severe hypertension on admission admitted. 02 support cvc monitor IV Lasix. Consult Cardiology. Cardiac enzymes, echocardiogram, serial EKGs. Deep venous thrombosis prophylaxis. Frequent labs. PT, OT. Ischemic workup with stress test today 09/07 mod-severe cardiac disease at high risk of complications// cardiac , poor snf prognosis, per my chart review Vitals Vitals Vital Signs Date Time Temp Pulse Resp B/P (MAP) Pulse Ox O2 Delivery O2 Flow Rate FiO2 09/07/18 11:08 98.2 57 18 118/64 (82) 95 Nasal Cannula 2.0 98.2 Physical Exam General: Alert, Oriented X3, Cooperative, No acute distress Heart: Regular rate, Gallops, Other (S4, 3/6 systolic murmur to LLS border) Lungs: Clear Abdomen: Soft, No tenderness Extremities: No cyanosis, Other (3+ bilateral Le pitting edema) Skin: Other (Left foot poor healing ulcer) Labs LABS Nurse/Tech Notes S1S2 irregular rate, lungs CTA Consent: The procedure was explained to the patient in lay terms. Informed consent was witnessed. Timeout was entered into [employer]. History and Stress Test performed by JOSEFA Lopez Pharm. Details Pharmacologic stress testing was performed using 0.4mg per 5ml of regadenoson given intravenously over 7-10 seconds. Stress Symptoms felt a pressure in his high abdoman / chest area that did resolve by end of recovery period. was scale 4/10 at its worst. POST EXERCISE Reason for Termination: Infusion complete Max HR: 81 bpm Max Blood Pressure: 147/54mmHg Blood Pressure response to exercise: Normal blood pressure response during stress. Heart Rate response to exercise: wnl Chest Pain: Yes. see above note Arrhythmia: No. no changes from baseline - occaisional pvc noted ST Change: No. INTERPRETATION Stress EKG Conclusion: No evidence of stress induced EKG changes Imaging Protocol IMAGE PROTOCOL: Rest Tc-99m/stress Tc-99m 1 day Rest: Stress: Viability: Radiopharm. Tc99m Sestamibi Tc99m Sestamibi Dose 10.5mCi 33mCi Img Date 09/07/2018 09/07/2018 Inj-Img Time 60min. 45min. Rest Admin Site: IV - Left Wrist Row Boss Hoeing: RT Adrian (R)(N) Stress Admin Site: IV - Left Wrist Row Boss Hoeing: JOSEFA Lopez STRESS DATA End Diast. Vol. 211.0ml LVEDV index BSA 92.0ml End Syst. Vol. 118.0ml LVESV index BSA 52.0ml Myocardial Mass 220.0g Eject. Fraction 44.0% Stress Scores Regional WT 2.00 Summed WT 37.00 Regional WM 0.00 Summed WM 17.00 LV Perfusion There is a large sized, basal to distal inferior, inferolateral and lateral FIXED perfusion defect suggestive of prior infarct with mild davian-infarct viability. Wall Motion Mild LV dysfunction. EF 45% LEFT VENTRICLE The Left Ventricle is borderline dilated. There is normal left ventricular wall thickness. Left ventricle systolic function is moderate to severely impaired. The Ejection Fraction is estimated at 30%. There is global hypokinesis of the left ventricle. RIGHT VENTRICLE The right ventricle is mildly dilated. The right ventricular systolic function is normal. ATRIA The left atrium is mildly dilated. The right atrium is mildly dilated. The interatrial septum is intact with no evidence for an atrial septal defect or patent foramen ovale as noted on 2-D or Doppler imaging. AORTIC VALVE The aortic valve is mildly thickened but opens well. Doppler and Color Flow revealed mild aortic regurgitation. There is no significant aortic valvular stenosis. MITRAL VALVE The mitral valve is calcified but opens well. Mitral annular calcification is mild. There is no evidence of mitral valve prolapse. There is no mitral valve stenosis. Doppler and Color-flow revealed mild mitral regurgitation. TRICUSPID VALVE The tricuspid valve is normal in structure and function. Doppler and Color Flow revealed mild tricuspid regurgitation. The PA pressure was estimated at 50 mmHg. There is no tricuspid valve stenosis. PULMONIC VALVE The pulmonic valve is not well visualized. Doppler and Color Flow revealed mild pulmonic valvular regurgitation. There is no pulmonic valvular stenosis. GREAT VESSELS The aortic root is normal in size. The ascending aorta is normal in size. The IVC is dilated and collapses >50% with inspiration. PERICARDIAL EFFUSION There is no evidence of significant pericardial effusion. Critical Notification Critical Value: No <Conclusion> The Left Ventricle is borderline dilated. Left ventricle systolic function is moderate to severely impaired. The Ejection Fraction is estimated at 30%. There is global hypokinesis of the left ventricle. There is no significant aortic valvular stenosis. Doppler and Color Flow revealed mild aortic regurgitation. Doppler and Color-flow revealed mild mitral regurgitation. Doppler and Color Flow revealed mild tricuspid regurgitation. The PA pressure was estimated at 50 mmHg. Signed by : Kenneth Christy MD Electronically Approved : 09/06/2018 16:58:20 Laboratory Tests Test 09/06/18 13:00 09/06/18 21:05 White Blood Count 7.7 x10^3/uL (4.0-11.0) Red Blood Count 3.86 x10^6/uL (4.30-5.70) Hemoglobin 11.7 g/dL (13.0-17.5) Hematocrit 36.3 % (39.0-53.0) Mean Corpuscular Volume 94 fL (79-100) Mean Corpuscular Hemoglobin 30 pg (25-35) Mean Corpuscular Hemoglobin Concent 32 g/dL (31-37) Red Cell Distribution Width 15.7 % (11.5-14.5) Platelet Count 252 x10^3/uL (140-400) Neutrophils (%) (Auto) 73 % (31-73) Lymphocytes (%) (Auto) 15 % (24-48) Monocytes (%) (Auto) 9 % (0-9) Eosinophils (%) (Auto) 2 % (0-3) Basophils (%) (Auto) 0 % (0-3) Neutrophils # (Auto) 5.6 x10^3uL (1.8-7.7) Lymphocytes # (Auto) 1.2 x10^3/uL (1.0-4.8) Monocytes # (Auto) 0.7 x10^3/uL (0.0-1.1) Eosinophils # (Auto) 0.1 x10^3/uL (0.0-0.7) Basophils # (Auto) 0.0 x10^3/uL (0.0-0.2) Prothrombin Time 15.5 SEC (11.7-14.0) Prothromb Time International Ratio 1.3 (0.8-1.1) Sodium Level 141 mmol/L (136-145) Potassium Level 5.0 mmol/L (3.5-5.1) Chloride Level 103 mmol/L (98-107) Carbon Dioxide Level 27 mmol/L (21-32) Anion Gap 11 (6-14) Blood Urea Nitrogen 27 mg/dL (8-26) Creatinine 2.1 mg/dL (0.7-1.3) Estimated GFR (Cockcroft-Gault) 30.8 BUN/Creatinine Ratio 13 (6-20) Glucose Level 129 mg/dL (70-99) Calcium Level 9.5 mg/dL (8.5-10.1) Magnesium Level 2.2 mg/dL (1.8-2.4) Total Bilirubin 0.7 mg/dL (0.2-1.0) Aspartate Amino Transf (AST/SGOT) 18 U/L (15-37) Alanine Aminotransferase (ALT/SGPT) 25 U/L (16-63) Alkaline Phosphatase 102 U/L (46-116) Creatine Kinase 50 U/L (39-308) Creatine Kinase MB (Mass) 1.6 ng/mL (0.0-3.6) Creatine Kinase MB Relative Index % (0-4) Troponin I Quantitative 0.399 ng/mL (0.000-0.055) 0.377 ng/mL (0.000-0.055) BK-Gph-U-Type Natriuretic Peptide 5291 pg/mL (0-449) Total Protein 7.4 g/dL (6.4-8.2) Albumin 3.8 g/dL (3.4-5.0) Albumin/Globulin Ratio 1.1 (1.0-1.7) Triglycerides Level 100 mg/dL (0-150) Cholesterol Level 121 mg/dL (0-200) LDL Cholesterol, Calculated 77 mg/dL (0-100) VLDL Cholesterol, Calculated 20 mg/dL (0-40) Non-HDL Cholesterol Calculated 97 mg/dL (0-129) HDL Cholesterol 24 mg/dL (40-60) Cholesterol/HDL Ratio 5.0 Lipase 148 U/L (73-393) Thyroid Stimulating Hormone (TSH) 3.227 uIU/mL (0.358-3.74) Free Thyroxine 0.91 ng/dL (0.76-1.46) Assessment and Plan Assessmemt and Plan Problems Medical Problems: (1) CHF exacerbation Status: Acute STATUS: DEP CLI ORD. PHYSICIAN: SUE SINGH MD REASON: Claudication PROCEDURE: [id number] ANGIO EXTREMITY RIGHT 12/23/2016 1. Pelvic angiography (CO2 angiography) 2. Right lower extremity angiography 3. Conventional and subsequent drug coated balloon Angioplasty of a high-grade stenosis of the above the knee right popliteal artery Indication: Recurrent right lower extremity calf claudication Discussion: The risks and benefits of the procedure including bleeding, vascular injury, pain, and contrast neuropathy were discussed the patient. Informed consent was obtained. The patient's creatinine was found to be elevated, however this was discussed the patient's television servicer, who approved proceeding with angiography. The patient was brought to the fluoroscopy suite and placed in supine position. A timeout procedure was performed. The left groin was prepped and draped using maximum sterile barrier technique. Ultrasound and fluoroscopic guidance was used to achieve left common femoral arterial access. 5 Citizen [place] vascular sheath was placed. Angiography confirmed access site. Nominal flush catheter was advanced to the inferior aorta. CO2 angiography of the pelvis was performed. Aorta and bilateral common iliac arteries demonstrate mild areas of ectasia with minimal proximal common iliac artery stenosis, similar to prior studies. External iliac arteries are patent. Common femoral arteries are patent. Omni Flush catheter and Bentson wire were used to cross the aortic bifurcation. Right lower extremity CO2 angiography was initially performed demonstrating no lesion of the proximal SFA. Contrast angiography was then performed demonstrating minimal nonflow limiting stenosis in the mid SFA and high-grade stenosis of the above the knee popliteal artery at the junction of the SFA and popliteal artery. The posterior tibial artery is occluded. The anterior tibial artery is patent. Peroneal artery appears patent to the mid leg. A 6 Citizen [place] Ansell 2 up and over sheath was placed into the right SFA. The high-grade stenosis of the popliteal artery was crossed with an advantage glide wire. Balloon angioplasty was performed with 4 x 40 mm balloon. The lesion responded well to conventional angioplasty with only minimal residual narrowing. Angioplasty was repeated with a 4 mm drug-eluting balloon demonstrating significantly improved flow morphology of the lesion with respect to original angiograms. No significant residual narrowing was seen. The wire and sheath were then removed. Hemostasis of the left groin was achieved following deployment of an Angio-Seal device. No immediate complications were identified. The patient tolerated the procedure well. Fluoroscopy time: 12.0 minutes. DAP: 462 Gycm2 The procedure was performed conscious sedation including continuous cardiopulmonary monitoring via a dedicated sedation nurse. Sedation time 1 hour 20 minutes. 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 Comment Review of Relevant I have reviewed the following items viviane (where applicable) has been applied. Labs Laboratory Tests Test 09/06/18 13:00 09/06/18 21:05 White Blood Count 7.7 x10^3/uL (4.0-11.0) Red Blood Count 3.86 x10^6/uL (4.30-5.70) Hemoglobin 11.7 g/dL (13.0-17.5) Hematocrit 36.3 % (39.0-53.0) Mean Corpuscular Volume 94 fL (79-100) Mean Corpuscular Hemoglobin 30 pg (25-35) Mean Corpuscular Hemoglobin Concent 32 g/dL (31-37) Red Cell Distribution Width 15.7 % (11.5-14.5) Platelet Count 252 x10^3/uL (140-400) Neutrophils (%) (Auto) 73 % (31-73) Lymphocytes (%) (Auto) 15 % (24-48) Monocytes (%) (Auto) 9 % (0-9) Eosinophils (%) (Auto) 2 % (0-3) Basophils (%) (Auto) 0 % (0-3) Neutrophils # (Auto) 5.6 x10^3uL (1.8-7.7) Lymphocytes # (Auto) 1.2 x10^3/uL (1.0-4.8) Monocytes # (Auto) 0.7 x10^3/uL (0.0-1.1) Eosinophils # (Auto) 0.1 x10^3/uL (0.0-0.7) Basophils # (Auto) 0.0 x10^3/uL (0.0-0.2) Prothrombin Time 15.5 SEC (11.7-14.0) Prothromb Time International Ratio 1.3 (0.8-1.1) Sodium Level 141 mmol/L (136-145) Potassium Level 5.0 mmol/L (3.5-5.1) Chloride Level 103 mmol/L (98-107) Carbon Dioxide Level 27 mmol/L (21-32) Anion Gap 11 (6-14) Blood Urea Nitrogen 27 mg/dL (8-26) Creatinine 2.1 mg/dL (0.7-1.3) Estimated GFR (Cockcroft-Gault) 30.8 BUN/Creatinine Ratio 13 (6-20) Glucose Level 129 mg/dL (70-99) Calcium Level 9.5 mg/dL (8.5-10.1) Magnesium Level 2.2 mg/dL (1.8-2.4) Total Bilirubin 0.7 mg/dL (0.2-1.0) Aspartate Amino Transf (AST/SGOT) 18 U/L (15-37) Alanine Aminotransferase (ALT/SGPT) 25 U/L (16-63) Alkaline Phosphatase 102 U/L (46-116) Creatine Kinase 50 U/L (39-308) Creatine Kinase MB (Mass) 1.6 ng/mL (0.0-3.6) Creatine Kinase MB Relative Index % (0-4) Troponin I Quantitative 0.399 ng/mL (0.000-0.055) 0.377 ng/mL (0.000-0.055) FM-Kso-A-Type Natriuretic Peptide 5291 pg/mL (0-449) Total Protein 7.4 g/dL (6.4-8.2) Albumin 3.8 g/dL (3.4-5.0) Albumin/Globulin Ratio 1.1 (1.0-1.7) Triglycerides Level 100 mg/dL (0-150) Cholesterol Level 121 mg/dL (0-200) LDL Cholesterol, Calculated 77 mg/dL (0-100) VLDL Cholesterol, Calculated 20 mg/dL (0-40) Non-HDL Cholesterol Calculated 97 mg/dL (0-129) HDL Cholesterol 24 mg/dL (40-60) Cholesterol/HDL Ratio 5.0 Lipase 148 U/L (73-393) Thyroid Stimulating Hormone (TSH) 3.227 uIU/mL (0.358-3.74) Free Thyroxine 0.91 ng/dL (0.76-1.46) Laboratory Tests Test 09/06/18 13:00 09/06/18 21:05 White Blood Count 7.7 x10^3/uL (4.0-11.0) Red Blood Count 3.86 x10^6/uL (4.30-5.70) Hemoglobin 11.7 g/dL (13.0-17.5) Hematocrit 36.3 % (39.0-53.0) Mean Corpuscular Volume 94 fL (79-100) Mean Corpuscular Hemoglobin 30 pg (25-35) Mean Corpuscular Hemoglobin Concent 32 g/dL (31-37) Red Cell Distribution Width 15.7 % (11.5-14.5) Platelet Count 252 x10^3/uL (140-400) Neutrophils (%) (Auto) 73 % (31-73) Lymphocytes (%) (Auto) 15 % (24-48) Monocytes (%) (Auto) 9 % (0-9) Eosinophils (%) (Auto) 2 % (0-3) Basophils (%) (Auto) 0 % (0-3) Neutrophils # (Auto) 5.6 x10^3uL (1.8-7.7) Lymphocytes # (Auto) 1.2 x10^3/uL (1.0-4.8) Monocytes # (Auto) 0.7 x10^3/uL (0.0-1.1) Eosinophils # (Auto) 0.1 x10^3/uL (0.0-0.7) Basophils # (Auto) 0.0 x10^3/uL (0.0-0.2) Prothrombin Time 15.5 SEC (11.7-14.0) Prothromb Time International Ratio 1.3 (0.8-1.1) Sodium Level 141 mmol/L (136-145) Potassium Level 5.0 mmol/L (3.5-5.1) Chloride Level 103 mmol/L (98-107) Carbon Dioxide Level 27 mmol/L (21-32) Anion Gap 11 (6-14) Blood Urea Nitrogen 27 mg/dL (8-26) Creatinine 2.1 mg/dL (0.7-1.3) Estimated GFR (Cockcroft-Gault) 30.8 BUN/Creatinine Ratio 13 (6-20) Glucose Level 129 mg/dL (70-99) Calcium Level 9.5 mg/dL (8.5-10.1) Magnesium Level 2.2 mg/dL (1.8-2.4) Total Bilirubin 0.7 mg/dL (0.2-1.0) Aspartate Amino Transf (AST/SGOT) 18 U/L (15-37) Alanine Aminotransferase (ALT/SGPT) 25 U/L (16-63) Alkaline Phosphatase 102 U/L (46-116) Creatine Kinase 50 U/L (39-308) Creatine Kinase MB (Mass) 1.6 ng/mL (0.0-3.6) Creatine Kinase MB Relative Index % (0-4) Troponin I Quantitative 0.399 ng/mL (0.000-0.055) 0.377 ng/mL (0.000-0.055) IS-Clk-N-Type Natriuretic Peptide 5291 pg/mL (0-449) Total Protein 7.4 g/dL (6.4-8.2) Albumin 3.8 g/dL (3.4-5.0) Albumin/Globulin Ratio 1.1 (1.0-1.7) Triglycerides Level 100 mg/dL (0-150) Cholesterol Level 121 mg/dL (0-200) LDL Cholesterol, Calculated 77 mg/dL (0-100) VLDL Cholesterol, Calculated 20 mg/dL (0-40) Non-HDL Cholesterol Calculated 97 mg/dL (0-129) HDL Cholesterol 24 mg/dL (40-60) Cholesterol/HDL Ratio 5.0 Lipase 148 U/L (73-393) Thyroid Stimulating Hormone (TSH) 3.227 uIU/mL (0.358-3.74) Free Thyroxine 0.91 ng/dL (0.76-1.46) Medications Current Medications Furosemide (Lasix) 40 mg 1X ONCE IVP Last administered on 09/06/18at 15:17; Start 09/06/18 at 14:15; Stop 09/06/18 at 14:16; Status DC Ondansetron HCl (Zofran) 4 mg PRN Q8HRS PRN IV NAUSEA/VOMITING; Start 09/06/18 at 14:15; Stop 09/06/18 at 14:17; Status DC Morphine Sulfate (Morphine Sulfate) 4 mg PRN Q2HR PRN IV PAIN; Start 09/06/18 at 14:15; Stop 09/06/18 at 14:17; Status DC Sodium Chloride 1,000 ml @ 100 mls/hr Q10H IV ; Start 09/06/18 at 14:10; Stop 09/06/18 at 14:17; Status DC Ondansetron HCl (Zofran) 4 mg PRN Q8HRS PRN IV NAUSEA/VOMITING; Start 09/06/18 at 14:30; Stop 09/07/18 at 14:29 Furosemide (Lasix) 40 mg DAILY IVP Last administered on 09/07/18at 08:43; Start 09/07/18 at 09:00 Aspirin (Ecotrin) 81 mg DAILY07 PO Last administered on 09/07/18at 08:42; Start 09/07/18 at 07:00 Clopidogrel Bisulfate (Plavix) 75 mg DAILY PO Last administered on 09/07/18at 08 :42; Start 09/07/18 at 09:00 EZETIMIBE (Zetia) 10 mg DAILY PO ; Start 09/07/18 at 09:00 Losartan Potassium (Cozaar) 100 mg DAILY PO Last administered on 09/07/18at 08: 43; Start 09/07/18 at 09:00 Enoxaparin Sodium (Lovenox 100mg Syringe) 100 mg 1X ONCE SQ Last administered on 09/06/18at 18:06; Start 09/06/18 at 17:45; Stop 09/06/18 at 17:46; Status DC Metoprolol Succinate (Toprol Xl) 25 mg DAILY PO ; Start 09/07/18 at 09:00 Amlodipine Besylate (Norvasc) 10 mg 1X ONCE PO Last administered on 09/06/18at 17:59; Start 09/06/18 at 17:45; Stop 09/06/18 at 17:47; Status DC Hydralazine HCl (Apresoline Inj) 10 mg PRN Q4HRS PRN IVP ELEVATED BP, SEE COMMENTS; Start 09/06/18 at 17:45 Active Scripts Active Reported Toprol Xl (Metoprolol Succinate) 50 Mg Tab.er.24h 100 Mg PO DAILY Flomax (Tamsulosin Hcl) 0.4 Mg Cap.er.24h 1 Cap PO HS Cephalexin 500 Mg Capsule 1 Cap PO TID Allopurinol 100 Mg Tablet 2 Tab PO DAILY Amlodipine Besylate 5 Mg Tablet 5 Mg PO DAILY Testosterone Cypionate 200 Mg/1 Ml Vial 1 Ml IM [id number] Hydrocodone-Apap 10-325 (Hydrocodone Bit/Acetaminophen) 1 Each Tablet 1 Tab PO PRN Q6HRS PRN Clopidogrel (Clopidogrel Bisulfate) 75 Mg Tablet 1 Tab PO DAILY Vitamin C (Ascorbic Acid) 1,000 Mg Tablet 1,000 Mg PO DAILY Vitamin E (Vitamin E Mixed) 400 Unit Capsule 400 Unit PO Aspir 81 (Aspirin) 81 Mg Tablet.dr 1 Tab PO DAILY Co Q-10 (Ubidecarenone) 200 Mg Capsule 200 Mg PO DAILY Krill Oil 500 Mg Capsule 500 Mg PO Multi-Vitamin Daily (Multivitamin) 1 Each Tablet 1 Each PO DAILY Propafenone Hcl 150 Mg Tablet 225 Mg PO BID Gemfibrozil 600 Mg Tablet 1 Tab PO DAILY Zetia (Ezetimibe) 10 Mg Tablet 1 Tab PO DAILY Losartan Potassium 100 Mg Tablet 100 Mg PO DAILY Nexium Capsule (Esomeprazole Magnesium) 40 Mg Capsule.dr 1 Cap PO DAILY Vitals/I & O Vital Sign - Last 24 Hours 09/06/18 09/06/18 09/06/18 09/06/18 12:54 13:28 14:00 15:13 Temp 97.8 97.8 Pulse 57 61 60 46 Resp 22 16 B/P (MAP) 134/63 (86) 161/72 (101) 169/72 (104) 160/76 (104) Pulse Ox 97 97 96 98 O2 Delivery Nasal Cannula Nasal Cannula Nasal Cannula O2 Flow Rate 2.0 2.0 2.0 2.0 09/06/18 09/06/18 09/06/18 09/06/18 16:35 17:33 17:59 18:00 Pulse 63 64 59 58 Resp 22 20 21 B/P (MAP) 171/81 (111) 191/84 (119) 191/84 165/94 (117) Pulse Ox 98 97 97 O2 Delivery Nasal Cannula Nasal Cannula Nasal Cannula O2 Flow Rate 2.0 2.0 2.0 09/06/18 09/06/18 09/06/18 09/06/18 18:30 19:00 19:30 20:15 Temp 97.5 97.5 Pulse 58 56 66 67 Resp 20 B/P (MAP) 169/79 (109) 194/77 (116) 184/78 (113) 155/70 (98) Pulse Ox 97 96 98 91 O2 Delivery Nasal Cannula Nasal Cannula Nasal Cannula Nasal Cannula O2 Flow Rate 2.0 2.0 2.0 2.0 09/06/18 09/06/18 09/07/18 09/07/18 21:56 23:15 03:48 07:23 Temp 98.2 97.9 98.1 98.2 97.9 98.1 Pulse 70 73 74 Resp 18 18 18 B/P (MAP) 164/70 (101) 166/72 (103) 146/59 (88) Pulse Ox 91 93 100 O2 Delivery Nasal Cannula Nasal Cannula Nasal Cannula Nasal Cannula O2 Flow Rate 2.0 2.0 2.0 2.0 09/07/18 09/07/18 09/07/18 08:00 08:43 11:08 Temp 98.2 98.2 Pulse 74 57 Resp 18 B/P (MAP) 146/59 118/64 (82) Pulse Ox 95 O2 Delivery Nasal Cannula Nasal Cannula O2 Flow Rate 2.0 2.0 Intake and Output 09/06/18 09/06/18 09/07/18 14:59 22:59 06:59 Intake Total 100 ml Output Total 1600 ml 1050 ml Balance -1600 ml -950 ml KAREN REYES MD Sep 07, 2018 12:00
[2018-09-07 12:17] LABS: CALCIUM 9.7 mg/dL (8.5-10.1); CREATININE 1.8 mg/dL (0.7-1.3); GFR 36.8; POTASSIUM 4.3 mmol/L (3.5-5.1)
--- NOTE | 2018-09-07 12:23 | NUR ---
Wound Consult: Consult to eval and treat L DFU. cleansed, and measured. Packed opening of wound with aquacel AG rope and covered with telfa island dressing. No other open areas present on head to toe inspection. Provided education of PU prevention. Plan to follow up 09/14
[2018-09-07] MEDS ORDERED: REGADENOSON 0.4 MG/5 ML DISP.SYRIN. IV ONE ×2 (12:45→13:30)
--- NOTE | 2018-09-07 12:55 | NUR ---
SS following up with discharge planning. SS reviewed pt chart. Pt is from home with spouse and is currently requiring oxygen. No discharge needs noted at this time. SS will continue to follow for pending discharge needs.
[2018-09-07] MEDS ORDERED: HYDROcodone/APAP 10/325 1 TAB TABLET PO PRN (14:45)
--- NOTE | 2018-09-07 14:46 | RAD ---
MR#: [id number] Date of Study: 09/07/2018 Ordering Physician: GEM MULLEN, Referring Physician: SHASHA FARAH Tech: JOHAN Sotelo, ARRT (R) (N) APPROVED REPORT Test Type: Pharmacological Stress Nurse/Tech: Anna Rodriguez R.N. Test Indications: CAD, SOB Cardiac History: CABG, DM Medications: See Electronic Medical Record Medical History: See Electronic Medical Record Resting ECG: Afib/flutter w/ inverted T wave in leads II,III, AVF, V4-V6 Resting Heart Rate: 59 bpm Resting Blood Pressure: 169/64mmHg Pretest Chest Pain: No chest pain Nurse/Tech Notes S1S2 irregular rate, lungs CTA Consent: The procedure was explained to the patient in lay terms. Informed consent was witnessed. Olman eout was entered into [email or web address]. History and Stress Test performed by JOSEFA Lopez Pharm. Details Pharmacologic stress testing was performed using 0.4mg per 5ml of regadenoson given intravenously ove r 7-10 seconds. Stress Symptoms felt a pressure in his high abdoman / chest area that did resolve by end of recovery period. was scal e 4/10 at its worst. POST EXERCISE Reason for Termination: Infusion complete Max HR: 81 bpm Max Blood Pressure: 147/54mmHg Blood Pressure response to exercise: Normal blood pressure response during stress. Heart Rate response to exercise: wnl Chest Pain: Yes. see above note Arrhythmia: No. no changes from baseline - occaisional pvc noted ST Change: No. INTERPRETATION Stress EKG Conclusion: No evidence of stress induced EKG changes Imaging Protocol IMAGE PROTOCOL: Rest Tc-99m/stress Tc-99m 1 day Rest: Stress: Viability: Radiopharm.Tc99m [id number] Sestamibi Dose10.5mCi 33mCi Img Date 09/07/2018 09/07/2018 Inj-Img [id number]. 45min. Rest Admin Site:IV - Left WristAdministrator:RT Adrian (R)(N) Stress Admin Site: IV - Left WristAdministrator: JOSEFA Lopez STRESS DATA End Diast. Vol.211.0mlLVEDV index BSA92.0ml End Syst. Vol.118.0mlLVESV index BSA52.0ml Myocardial Yqzh728.0gEject. Asksbhvz55.0% Stress Scores Regional WT2.00Summed WT37.00 Regional WM0.00Summed WM17.00 LV Perfusion There is a large sized, basal to distal inferior, inferolateral and lateral FIXED perfusion defect singh ggestive of prior infarct with mild davian-infarct viability. Wall Motion Mild LV dysfunction. EF 45% LV Perf. Quant 17 Seg. SSS20.00 17 Seg. SRS20.00 17 Seg. SDS2.00 Stress Defect Extent (% LAD)5.60Rest Defect Extent (% LAD)4.40Rev. Defect Extent (% LAD)1.30 Stress Defect Extent (% LCX) 91.30Rest Defect Extent (% LCX)95.00Rev. Defect Extent (% LCX)1.30 Stress Defect Extent (% RCA)46.70Rest Defect Extent (% RCA)38.90Rev. Defect Extent (% RCA)15.60 Stress Defect Extent (% ELIOT)37.40Rest Defect Extent (% ELIOT)37.00Rev. Defect Extent (% ELIOT)6.10 Other Information Quality:Average Risk Assessment: Moderate Risk Conclusion 1. No evidence of stress induced EKG changes 2. Large inferior and lateral fixed defect. 3. Mild LV dysfunction. Ejection fraction 45%. 4. Moderate risk for future cardiovascular events. Signed by : Abhi Richter, Electronically Approved : 09/07/2018 14:45:33
[2018-09-07] MEDS: CEPHALEXIN 250 MG CAPSULE. PO SCH ×2 (15:12→21:05)
[2018-09-07] MEDS: MULTIVITAMIN with MINERAL TABLET. PO SCH (15:14)
[2018-09-07] MEDS: PANTOPRAZOLE 40 MG TABLET.DR. PO SCH (15:14)
[2018-09-07] MEDS: EZETIMIBE 10 MG TABLET. PO SCH (15:15)
[2018-09-07] MEDS: ALLOPURINOL 100 MG TABLET. PO SCH (15:15)
[2018-09-07] MEDS: ASCORBIC ACID 500 MG TABLET PO SCH (15:15)
[2018-09-07] MEDS: GEMFIBROZIL 600 MG TABLET. PO SCH (15:15)
[2018-09-07 15:22] VITALS: BP 157/75
[2018-09-07 19:36] VITALS: BP 158/67
--- NOTE | 2018-09-07 20:42 | CONS ---
DATE OF CONSULTATION: REQUESTING PHYSICIAN: Hospitalist. REASON FOR CONSULTATION: Renal failure. HISTORY OF PRESENT ILLNESS: This is a 78-year-old gentleman with known history of chronic kidney disease stage 3 in setting of hypertension and nephrosclerosis. He follows with Dr. Stewart of our practice. The patient currently admitted with increasing shortness of breath, manifested by orthopnea and PND of 3-4 days duration. He has known ischemic cardiomyopathy with left ventricular ejection fraction of 35%. He is status post coronary bypass grafting in 2010. PAST MEDICAL HISTORY: Hypertension, chronic kidney disease stage 3, ischemic cardiomyopathy with left ventricular ejection fraction 35%, hyperlipidemia, peripheral vascular disease, GE reflux disease, degenerative arthritis, gout, benign prostatic hypertrophy, right knee arthroscopy, coronary artery bypass grafting x 2 in 2011, total hip replacement left side, peripheral revascularization, neck fusion. ALLERGIES: PENICILLIN AND AMIODARONE. MEDICATIONS: Reviewed per medication list. FAMILY HISTORY: Noncontributory for renal disease. SOCIAL HISTORY: The patient resides with family. Remote smoking history. No alcohol use. REVIEW OF SYSTEMS: No headaches, sinus problem, nasal drainage, epistaxis, change in vision or hearing. No difficulty swallowing. No fever, chills, cough, sputum production, or hemoptysis. No chest pain. He has reduced shortness of breath at this time on supplemental oxygen and with diuresis. No abdominal pain. No nausea, vomiting, diarrhea. No seizures or malignancies. PHYSICAL EXAMINATION: GENERAL APPEARANCE: The patient awake, conversant, appropriate. HEENT: Clear. Nasal cannula in place. NECK: No increased JVD. No thyromegaly, mass or adenopathy. LUNGS: Clear. CARDIAC: Without S3 or rub. ABDOMEN: Soft, nontender, no bruits. EXTREMITIES: Bilateral lower extremity edema, 2+ pitting. NEUROLOGIC: Nonfocal, nonlocalizing. PSYCHIATRIC: Good attention to detail, appropriate affect. LABORATORY DATA: Hemoglobin 11.7, hematocrit 36%, white count 7.7: Sodium 141, potassium 5, chloride 103, CO2 of 27. BUN is 27, creatinine 2.1, GFR is 30.8, albumin is 3.8. IMPRESSION: 1. Chronic kidney disease stage 3 in the setting of hypertensive nephrosclerosis. 2. Ischemic cardiomyopathy with exacerbation. 3. Peripheral edema. RECOMMENDATIONS: 1. Agree with diuresis as you are doing. 2. We will follow renal function and trend with you. SUE INGRAM MD DR: JUAN MANUEL/natasha JOB#: [id number] / [id number]
[2018-09-07] MEDS: TAMSULOSIN 0.4 MG CAP.ER.24H. PO SCH (21:05)
[2018-09-07 23:14] VITALS: BP 164/74
[2018-09-08 03:29] VITALS: BP 160/72
[2018-09-08 06:03] LABS: CALCIUM 9.3 mg/dL (8.5-10.1); CREATININE 1.8 mg/dL (0.7-1.3); GFR 36.8; POTASSIUM 3.9 mmol/L (3.5-5.1)
[2018-09-08 07:30] VITALS: BP 155/70
[2018-09-08] MEDS ORDERED: NON FORMULARY ITEM (Ubidecarenone (Co Q-10) 200 MG) PO SCH (09:00)
[2018-09-08] MEDS: FUROSEMIDE 40 MG/4 ML VIAL. IVP SCH (09:09)
[2018-09-08] MEDS: LOSARTAN POTASSIUM 50 MG TABLET. PO SCH (09:09)
[2018-09-08] MEDS: ALLOPURINOL 100 MG TABLET. PO SCH (09:09)
[2018-09-08] MEDS: ASPIRIN ENTERIC COATED 81 MG TABLET.DR. PO SCH (09:10)
[2018-09-08] MEDS: CEPHALEXIN 250 MG CAPSULE. PO SCH (09:10)
[2018-09-08] MEDS: EZETIMIBE 10 MG TABLET. PO SCH (09:10)
[2018-09-08] MEDS: ASCORBIC ACID 500 MG TABLET PO SCH (09:10)
[2018-09-08] MEDS: MULTIVITAMIN with MINERAL TABLET. PO SCH (09:10)
[2018-09-08] MEDS: METOPROLOL SUCC 24HR ER 25 MG TAB.ER.24H. PO SCH (09:10)
[2018-09-08] MEDS: CLOPIDOGREL BISULFATE 75 MG TABLET PO SCH (09:10)
[2018-09-08] MEDS: GEMFIBROZIL 600 MG TABLET. PO SCH (09:10)
[2018-09-08] MEDS: PANTOPRAZOLE 40 MG TABLET.DR. PO SCH (09:11)
--- NOTE | 2018-09-08 10:40 | PDOC ---
GEM MULLEN INTERMODAL DISPATCHER 09/08/18 1040: CARDIO Progress Notes Date and Time Date of Service 09/08/18 Time of Evaluation 1030 Subjective Subjective: No Chest Pain, No Palpitations, Other (SOA improved significantly) Vitals Vitals Vital Signs Date Time Temp Pulse Resp B/P (MAP) Pulse Ox O2 Delivery O2 Flow Rate FiO2 09/08/18 09:10 76 155/70 09/08/18 07:30 97.2 17 97 Nasal Cannula 2.0 97.2 Weight Weight [ ] Input and Output Intake and Output Intake and Output 09/08/18 07:00 Intake Total 1150 ml Output Total 650 ml Balance 500 ml Intake Oral 1150 ml Output Urine Total 650 ml Laboratory Labs Laboratory Tests Test 09/07/18 11:55 09/08/18 04:00 Sodium Level 142 mmol/L (136-145) 142 mmol/L (136-145) Potassium Level 4.3 mmol/L (3.5-5.1) 3.9 mmol/L (3.5-5.1) Chloride Level 103 mmol/L (98-107) 104 mmol/L (98-107) Carbon Dioxide Level 28 mmol/L (21-32) 27 mmol/L (21-32) Anion Gap 11 (6-14) 11 (6-14) Blood Urea Nitrogen 24 mg/dL (8-26) 25 mg/dL (8-26) Creatinine 1.8 mg/dL (0.7-1.3) 1.8 mg/dL (0.7-1.3) Estimated GFR (Cockcroft-Gault) 36.8 36.8 Glucose Level 110 mg/dL (70-99) 101 mg/dL (70-99) Calcium Level 9.7 mg/dL (8.5-10.1) 9.3 mg/dL (8.5-10.1) Physical Exam HEENT: Neck Supple W Full Motion Chest: Symmetric LUNGS: Other (faint bibasilar crackles) Heart: S1S2, murmurs (2/6 systolic murmur ), irregularly irregular (AFIB/ flutter) Abdomen: Soft N/T Extremities: Other (2+ bilateral LE edema ) Neurology: alert, oriented, follow commands Assessment Assessment 1. Acute on chronic systolic/diastolic CHF; LVEF 30% per echo, 45% per MPI. better compensated following diuresis. 2. NSTEMI: trop peak 0.399. CP free. MPI showed large inferior and lateral fixed defect. 3. PAFIB: remains in AFIB/flutter rate controlled 4. DANNA on CKD; Cr stable at 1.8 5. CAD: CABGx2 in 2010 6. HTN: mildly elevated 7. HLP 8. DM, II Recommendations Secondary prevention including ASA, plavix, BB Convert lasix to oral Resume Norvasc. ARB as per renal (recently discontinued per patient report) Start OAC with Eliquis for stroke prophylaxis Follow renal recs Supportive care RONALDO DANIEL MD 09/08/18 1752: CARDIO Progress Notes Plan Plan Patient seen and examined. Agree with above nurse practitioner note with the following comments: No acute events overnight. The patient feels better. He has not yet ambulated around the halls. He is going to do that later today with the nurse. His lower extremity edema is improved but still persistent on the left greater than the right. Questionable venous disease involving the left side. Irregular heart tones persist. Cardiac medications reviewed. We will stop his aspirin. Continue Plavix and initiate Eliquis therapy. He will follow-up with us in the office for further titration. Okay to discharge from a cardiac standpoint. Awaiting renal evaluation. We'll determine need for an ICD after treatment for the next 3 months and repeat evaluation of ejection fraction. GEM MULLEN APRN Sep 08, 2018 10:40 RONALDO DANIEL MD Sep 08, 2018 17:52
--- NOTE | 2018-09-08 10:47 | PDOC ---
PROGRESS NOTES Chief Complaint Chief Complaint ASSESSMENT AND PLAN: [id number] systolic and diastolic heart failure. Ejection Fraction is estimated at 30%.global hypokinesis of the left ventricle. There is a large sized, basal to distal inferior, inferolateral and lateral FIXED perfusion defect suggestive of prior infarct with mild davian-infarct viability. The PA pressure was estimated at 50 mmHg. 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 CKD stage3- 4 DANNA on CKD 3: followed by Dr. Stewart as outpt CAD: CABGx2 in 2010 HTN: Hyperlipidemia DM. 2: diet controlled PAD with left foot ulcer: recent percutaneous revascularization per Dr. Maurer at [facility] hypoxic resp failure malignant severe hypertension on admission Large inferior and lateral fixed defect. NEW ISSUE ON MPI admitted. 02 support cvc monitor IV Lasix. Consult Cardiology. Cardiac enzymes, echocardiogram, REVIEWED serial EKGs. Deep venous thrombosis prophylaxis. Frequent labs. PT, OT. Ischemic workup with stress test REVIEWED 09/08 mod-severe cardiac disease at high risk of complications// cardiac , poor longterm prognosis, per my chart review UNSTABLE CARDIAC FUNCTION Vitals Vitals Vital Signs Date Time Temp Pulse Resp B/P (MAP) Pulse Ox O2 Delivery O2 Flow Rate FiO2 09/08/18 09:10 76 155/70 09/08/18 07:30 97.2 17 97 Nasal Cannula 2.0 97.2 Physical Exam General: Alert, Oriented X3, Cooperative, No acute distress Heart: Regular rate, Normal S1, Gallops, Other (S4, 3/6 systolic murmur to LLS border) Lungs: Clear Abdomen: Soft, No tenderness Extremities: No cyanosis, Other (3+ bilateral Le pitting edema) Skin: Other (Left foot poor healing ulcer) Labs LABS maging Protocol IMAGE PROTOCOL: Rest Tc-99m/stress Tc-99m 1 day Rest: Stress: Viability: Radiopharm. Tc99m Sestamibi Tc99m Sestamibi Dose 10.5mCi 33mCi Img Date 09/07/2018 09/07/2018 Inj-Img Time 60min. 45min. Rest Admin Site: IV - Left Wrist Cutter Finisher: RT Adrian (R)(N) Stress Admin Site: IV - Left Wrist Cutter Finisher: JOSEFA Lopez STRESS DATA End Diast. Vol. 211.0ml LVEDV index BSA 92.0ml End Syst. Vol. 118.0ml LVESV index BSA 52.0ml Myocardial Mass 220.0g Eject. Fraction 44.0% Stress Scores Regional WT 2.00 Summed WT 37.00 Regional WM 0.00 Summed WM 17.00 LV Perfusion There is a large sized, basal to distal inferior, inferolateral and lateral FIXED perfusion defect suggestive of prior infarct with mild davian-infarct viability. Wall Motion Mild LV dysfunction. EF 45% LV Perf. Quant 17 Seg. SSS 20.00 17 Seg. SRS 20.00 17 Seg. SDS 2.00 Stress Defect Extent (% LAD) 5.60 Rest Defect Extent (% LAD) 4.40 Rev. Defect Extent (% LAD) 1.30 Stress Defect Extent (% LCX) 91.30 Rest Defect Extent (% LCX) 95.00 Rev. Defect Extent (% LCX) 1.30 Stress Defect Extent (% RCA) 46.70 Rest Defect Extent (% RCA) 38.90 Rev. Defect Extent (% RCA) 15.60 Stress Defect Extent (% ELIOT) 37.40 Rest Defect Extent (% ELIOT) 37.00 Rev. Defect Extent (% ELIOT) 6.10 Other Information Quality:Average Risk Assessment: Moderate Risk Conclusion 1. No evidence of stress induced EKG changes 2. Large inferior and lateral fixed defect. 3. Mild LV dysfunction. Ejection fraction 45%. 4. Moderate risk for future cardiovascular events. Signed by : Abhi Richter, Electronically Approved : 09/07/2018 14:45:33 Laboratory Tests Test 09/07/18 11:55 09/08/18 04:00 Sodium Level 142 mmol/L (136-145) 142 mmol/L (136-145) Potassium Level 4.3 mmol/L (3.5-5.1) 3.9 mmol/L (3.5-5.1) Chloride Level 103 mmol/L (98-107) 104 mmol/L (98-107) Carbon Dioxide Level 28 mmol/L (21-32) 27 mmol/L (21-32) Anion Gap 11 (6-14) 11 (6-14) Blood Urea Nitrogen 24 mg/dL (8-26) 25 mg/dL (8-26) Creatinine 1.8 mg/dL (0.7-1.3) 1.8 mg/dL (0.7-1.3) Estimated GFR (Cockcroft-Gault) 36.8 36.8 Glucose Level 110 mg/dL (70-99) 101 mg/dL (70-99) Calcium Level 9.7 mg/dL (8.5-10.1) 9.3 mg/dL (8.5-10.1) Assessment and Plan Assessmemt and Plan Problems Medical Problems: (1) CHF exacerbation Status: Acute Comment Review of Relevant I have reviewed the following items viviane (where applicable) has been applied. Labs Laboratory Tests Test 09/06/18 13:00 09/06/18 21:05 09/07/18 11:55 09/08/18 04:00 White Blood Count 7.7 x10^3/uL (4.0-11.0) Red Blood Count 3.86 x10^6/uL (4.30-5.70) Hemoglobin 11.7 g/dL (13.0-17.5) Hematocrit 36.3 % (39.0-53.0) Mean Corpuscular Volume 94 fL (79-100) Mean Corpuscular Hemoglobin 30 pg (25-35) Mean Corpuscular Hemoglobin Concent 32 g/dL (31-37) Red Cell Distribution Width 15.7 % (11.5-14.5) Platelet Count 252 x10^3/uL (140-400) Neutrophils (%) (Auto) 73 % (31-73) Lymphocytes (%) (Auto) 15 % (24-48) Monocytes (%) (Auto) 9 % (0-9) Eosinophils (%) (Auto) 2 % (0-3) Basophils (%) (Auto) 0 % (0-3) Neutrophils # (Auto) 5.6 x10^3uL (1.8-7.7) Lymphocytes # (Auto) 1.2 x10^3/uL (1.0-4.8) Monocytes # (Auto) 0.7 x10^3/uL (0.0-1.1) Eosinophils # (Auto) 0.1 x10^3/uL (0.0-0.7) Basophils # (Auto) 0.0 x10^3/uL (0.0-0.2) Prothrombin Time 15.5 SEC (11.7-14.0) Prothromb Time International Ratio 1.3 (0.8-1.1) Sodium Level 141 mmol/L (136-145) 142 mmol/L (136-145) 142 mmol/L (136-145) Potassium Level 5.0 mmol/L (3.5-5.1) 4.3 mmol/L (3.5-5.1) 3.9 mmol/L (3.5-5.1) Chloride Level 103 mmol/L (98-107) 103 mmol/L (98-107) 104 mmol/L (98-107) Carbon Dioxide Level 27 mmol/L (21-32) 28 mmol/L (21-32) 27 mmol/L (21-32) Anion Gap 11 (6-14) 11 (6-14) 11 (6-14) Blood Urea Nitrogen 27 mg/dL (8-26) 24 mg/dL (8-26) 25 mg/dL (8-26) Creatinine 2.1 mg/dL (0.7-1.3) 1.8 mg/dL (0.7-1.3) 1.8 mg/dL (0.7-1.3) Estimated GFR (Cockcroft-Gault) 30.8 36.8 36.8 BUN/Creatinine Ratio 13 (6-20) Glucose Level 129 mg/dL (70-99) 110 mg/dL (70-99) 101 mg/dL (70-99) Calcium Level 9.5 mg/dL (8.5-10.1) 9.7 mg/dL (8.5-10.1) 9.3 mg/dL (8.5-10.1) Magnesium Level 2.2 mg/dL (1.8-2.4) Total Bilirubin 0.7 mg/dL (0.2-1.0) Aspartate Amino Transf (AST/SGOT) 18 U/L (15-37) Alanine Aminotransferase (ALT/SGPT) 25 U/L (16-63) Alkaline Phosphatase 102 U/L (46-116) Creatine Kinase 50 U/L (39-308) Creatine Kinase MB (Mass) 1.6 ng/mL (0.0-3.6) Creatine Kinase MB Relative Index % (0-4) Troponin I Quantitative 0.399 ng/mL (0.000-0.055) 0.377 ng/mL (0.000-0.055) GP-Mzy-I-Type Natriuretic Peptide 5291 pg/mL (0-449) Total Protein 7.4 g/dL (6.4-8.2) Albumin 3.8 g/dL (3.4-5.0) Albumin/Globulin Ratio 1.1 (1.0-1.7) Triglycerides Level 100 mg/dL (0-150) Cholesterol Level 121 mg/dL (0-200) LDL Cholesterol, Calculated 77 mg/dL (0-100) VLDL Cholesterol, Calculated 20 mg/dL (0-40) Non-HDL Cholesterol Calculated 97 mg/dL (0-129) HDL Cholesterol 24 mg/dL (40-60) Cholesterol/HDL Ratio 5.0 Lipase 148 U/L (73-393) Thyroid Stimulating Hormone (TSH) 3.227 uIU/mL (0.358-3.74) Free Thyroxine 0.91 ng/dL (0.76-1.46) Laboratory Tests Test 09/07/18 11:55 09/08/18 04:00 Sodium Level 142 mmol/L (136-145) 142 mmol/L (136-145) Potassium Level 4.3 mmol/L (3.5-5.1) 3.9 mmol/L (3.5-5.1) Chloride Level 103 mmol/L (98-107) 104 mmol/L (98-107) Carbon Dioxide Level 28 mmol/L (21-32) 27 mmol/L (21-32) Anion Gap 11 (6-14) 11 (6-14) Blood Urea Nitrogen 24 mg/dL (8-26) 25 mg/dL (8-26) Creatinine 1.8 mg/dL (0.7-1.3) 1.8 mg/dL (0.7-1.3) Estimated GFR (Cockcroft-Gault) 36.8 36.8 Glucose Level 110 mg/dL (70-99) 101 mg/dL (70-99) Calcium Level 9.7 mg/dL (8.5-10.1) 9.3 mg/dL (8.5-10.1) Medications Current Medications Furosemide (Lasix) 40 mg 1X ONCE IVP Last administered on 09/06/18at 15:17; Start 09/06/18 at 14:15; Stop 09/06/18 at 14:16; Status DC Ondansetron HCl (Zofran) 4 mg PRN Q8HRS PRN IV NAUSEA/VOMITING; Start 09/06/18 at 14:15; Stop 09/06/18 at 14:17; Status DC Morphine Sulfate (Morphine Sulfate) 4 mg PRN Q2HR PRN IV PAIN; Start 09/06/18 at 14:15; Stop 09/06/18 at 14:17; Status DC Sodium Chloride 1,000 ml @ 100 mls/hr Q10H IV ; Start 09/06/18 at 14:10; Stop 09/06/18 at 14:17; Status DC Ondansetron HCl (Zofran) 4 mg PRN Q8HRS PRN IV NAUSEA/VOMITING; Start 09/06/18 at 14:30; Stop 09/07/18 at 14:29; Status DC Furosemide (Lasix) 40 mg DAILY IVP Last administered on 09/08/18 09:09; Start 09/07/18 at 09:00 Aspirin (Ecotrin) 81 mg DAILY07 PO Last administered on 09/08/18 09:10; Start 09/07/18 at 07:00 Clopidogrel Bisulfate (Plavix) 75 mg DAILY PO Last administered on 09/08/18 09 :10; Start 09/07/18 at 09:00 EZETIMIBE (Zetia) 10 mg DAILY PO Last administered on 09/08/18 09:10; Start at 09:00 Losartan Potassium (Cozaar) 100 mg DAILY PO Last administered on 09/08/18 09: 09; Start 09/07/18 at 09:00 Enoxaparin Sodium (Lovenox 100mg Syringe) 100 mg 1X ONCE SQ Last administered on 09/06/18 18:06; Start 09/06/18 at 17:45; Stop 09/06/18 at 17:46; Status DC Metoprolol Succinate (Toprol Xl) 25 mg DAILY PO Last administered on 09/08/18 09:10; Start 09/07/18 at 09:00 Amlodipine Besylate (Norvasc) 10 mg 1X ONCE PO Last administered on 09/06/18at 17:59; Start 09/06/18 at 17:45; Stop 09/06/18 at 17:47; Status DC Hydralazine HCl (Apresoline Inj) 10 mg PRN Q4HRS PRN IVP ELEVATED BP, SEE COMMENTS; Start 09/06/18 at 17:45 Regadenoson (Lexiscan) 0.4 mg 1X ONCE IV ; Start 09/07/18 at 12:45; Stop at 12:46; Status DC Allopurinol (Zyloprim) 200 mg DAILY PO Last administered on 09/08/18at 09:09; Start 09/07/18 at 15:00 Gemfibrozil (Lopid) 600 mg DAILY PO Last administered on 09/08/18at 09:10; Start 09/07/18 at 15:00 Acetaminophen/ Hydrocodone Bitart (Lortab 10/325) 1 tab PRN Q6HRS PRN PO PAIN; Start 09/07/18 at 14:45 Tamsulosin HCl (Flomax) 0.4 mg HS PO Last administered on 09/07/18at 21:05; Start 09/07/18 at 21:00 Ascorbic Acid (Vitamin C) 1,000 mg DAILY PO Last administered on 09/08/18at 09: 10; Start 09/07/18 at 15:00 Cephalexin HCl (Keflex) 500 mg TID PO Last administered on 09/08/18at 09:10; Start 09/07/18 at 15:00; Stop 09/08/18 at 09:01; Status DC Pantoprazole Sodium (Protonix) 40 mg DAILYAC PO Last administered on 09/08/18at 09:11; Start 09/07/18 at 15:00 Multivitamins (Thera M Plus) 1 tab DAILY PO Last administered on 09/08/18at 09: 10; Start 09/07/18 at 15:00 Non-Formulary Medication (Ubidecarenone (Co Q-10)) 200 mg DAILY PO ; Start 09/08 at 09:00; Status UNV Regadenoson (Lexiscan) 0.4 mg STK-MED ONCE IV ; Start 09/07/18 at 13:30; Stop at 08:33; Status DC Active Scripts Active Reported Toprol Xl (Metoprolol Succinate) 50 Mg Tab.er.24h 100 Mg PO DAILY Flomax (Tamsulosin Hcl) 0.4 Mg Cap.er.24h 1 Cap PO HS Cephalexin 500 Mg Capsule 1 Cap PO TID Allopurinol 100 Mg Tablet 2 Tab PO DAILY Amlodipine Besylate 5 Mg Tablet 5 Mg PO DAILY Testosterone Cypionate 200 Mg/1 Ml Vial 1 Ml IM [id number] Hydrocodone-Apap 10-325 (Hydrocodone Bit/Acetaminophen) 1 Each Tablet 1 Tab PO PRN Q6HRS PRN Clopidogrel (Clopidogrel Bisulfate) 75 Mg Tablet 1 Tab PO DAILY Vitamin C (Ascorbic Acid) 1,000 Mg Tablet 1,000 Mg PO DAILY Vitamin E (Vitamin E Mixed) 400 Unit Capsule 400 Unit PO Aspir 81 (Aspirin) 81 Mg Tablet.dr 1 Tab PO DAILY Co Q-10 (Ubidecarenone) 200 Mg Capsule 200 Mg PO DAILY Krill Oil 500 Mg Capsule 500 Mg PO Multi-Vitamin Daily (Multivitamin) 1 Each Tablet 1 Each PO DAILY Propafenone Hcl 150 Mg Tablet 225 Mg PO BID Gemfibrozil 600 Mg Tablet 1 Tab PO DAILY Zetia (Ezetimibe) 10 Mg Tablet 1 Tab PO DAILY Losartan Potassium 100 Mg Tablet 100 Mg PO DAILY Nexium Capsule (Esomeprazole Magnesium) 40 Mg Capsule.dr 1 Cap PO DAILY Vitals/I & O Vital Sign - Last 24 Hours 09/07/18 09/07/18 09/07/18 09/07/18 11:08 15:16 15:22 19:36 Temp 98.2 97.8 98.7 98.2 97.8 98.7 Pulse 57 64 63 67 Resp 18 18 18 B/P (MAP) 118/64 (82) 157/75 157/75 (102) 158/67 (97) Pulse Ox 95 96 97 O2 Delivery Nasal Cannula Nasal Cannula Nasal Cannula O2 Flow Rate 2.0 2.0 2.0 09/07/18 09/07/18 09/08/18 09/08/18 20:00 23:14 03:29 07:30 Temp 97.9 97.8 97.2 97.9 97.8 97.2 Pulse 58 61 76 Resp 18 17 17 B/P (MAP) 164/74 (104) 160/72 (101) 155/70 (98) Pulse Ox 96 96 97 O2 Delivery Nasal Cannula Nasal Cannula Nasal Cannula Nasal Cannula O2 Flow Rate 2.0 2.0 2.0 2.0 09/08/18 09/08/18 09:09 09:10 Pulse 76 76 B/P (MAP) 155/70 155/70 Intake and Output 09/07/18 09/07/18 09/08/18 15:00 23:00 07:00 Intake Total 0 ml 650 ml 500 ml Output Total 350 ml 300 ml Balance -350 ml 650 ml 200 ml KAREN REYES MD Sep 08, 2018 10:47
[2018-09-08 11:03] VITALS: BP 158/67
[2018-09-08] MEDS: APIXABAN 5 MG TABLET. PO SCH ×2 (14:10→21:47)
[2018-09-08 15:00] VITALS: BP 152/67
[2018-09-08] MEDS: amLODIPine BESYLATE 5 MG TABLET PO SCH (17:42)
[2018-09-08 19:27] VITALS: BP 152/70
[2018-09-08] MEDS: TAMSULOSIN 0.4 MG CAP.ER.24H. PO SCH (21:47)
[2018-09-08 22:58] VITALS: BP 151/67
[2018-09-09 03:16] VITALS: BP 150/68
[2018-09-09 04:07] LABS: BASO % 1 % (0-3); EOS # 0.2 x10^3/uL (0.0-0.7); EOS % 3 % (0-3); HEMATOCRIT 38.3 % (39.0-53.0); HEMOGLOBIN 12.3 g/dL (13.0-17.5); LYMPH # 1.5 x10^3/uL (1.0-4.8); LYMPH % 20 % (24-48); MEAN CORPUSCULAR HEMOGLOBIN 30 pg (25-35); MEAN CORPUSCULAR HGB CONC 32 g/dL (31-37); MEAN CORPUSCULAR VOLUME 93 fL (79-100); MONO # 0.9 x10^3/uL (0.0-1.1); MONO % 13 % (0-9); NEUT # 4.7 x10^3uL (1.8-7.7); NEUT % 64 % (31-73); PLATELET COUNT 260 x10^3/uL (140-400); RED BLOOD COUNT 4.12 x10^6/uL (4.30-5.70); RED CELL DISTRIBUTION WIDTH 15.7 % (11.5-14.5); WHITE BLOOD COUNT 7.4 x10^3/uL (4.0-11.0)
[2018-09-09 04:20] LABS: CALCIUM 9.2 mg/dL (8.5-10.1); CREATININE 1.8 mg/dL (0.7-1.3); GFR 36.8; POTASSIUM 3.7 mmol/L (3.5-5.1)
[2018-09-09 07:00] VITALS: BP 152/67
[2018-09-09] MEDS: amLODIPine BESYLATE 5 MG TABLET PO SCH (08:28)
[2018-09-09] MEDS: GEMFIBROZIL 600 MG TABLET. PO SCH (08:29)
[2018-09-09] MEDS: METOPROLOL SUCC 24HR ER 25 MG TAB.ER.24H. PO SCH (08:29)
[2018-09-09] MEDS: CLOPIDOGREL BISULFATE 75 MG TABLET PO SCH (08:29)
[2018-09-09] MEDS: EZETIMIBE 10 MG TABLET. PO SCH (08:29)
[2018-09-09] MEDS: MULTIVITAMIN with MINERAL TABLET. PO SCH (08:29)
[2018-09-09] MEDS: ASCORBIC ACID 500 MG TABLET PO SCH (08:30)
[2018-09-09] MEDS: ALLOPURINOL 100 MG TABLET. PO SCH (08:30)
[2018-09-09] MEDS: APIXABAN 5 MG TABLET. PO SCH (08:30)
[2018-09-09] MEDS: LOSARTAN POTASSIUM 50 MG TABLET. PO SCH (08:31)
[2018-09-09] MEDS: PANTOPRAZOLE 40 MG TABLET.DR. PO SCH (08:33)
[2018-09-09] MEDS ORDERED: FUROSEMIDE 40 MG TABLET. PO SCH (09:00)
--- NOTE | 2018-09-09 10:28 | PDOC ---
PROGRESS NOTES Chief Complaint Chief Complaint Eifft-iz-[id number] systolic and diastolic heart failure. Ejection Fraction is estimated at 30%.global hypokinesis of the left ventricle. There is a large sized, basal to distal inferior, inferolateral and lateral FIXED perfusion defect suggestive of prior infarct with mild davian-infarct viability. The PA pressure was estimated at 50 mmHg. 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 CKD stage3- 4 DANNA on CKD 3: followed by Dr. Stewart as outpt CAD: CABGx2 in 2010 HTN: Hyperlipidemia DM. 2: diet controlled PAD with left foot ulcer: recent percutaneous revascularization per Dr. Maurer at [facility] hypoxic resp failure malignant severe hypertension on admission Large inferior and lateral fixed defect. NEW ISSUE ON MPI History of Present Illness History of Present Illness Mr. Bardales is a 78 yo male found to have acute on chronic CHF. Nephrology and Cards following. Patient has no new complaints. Creatinine stable at 1.8. Patient denies shortness of breath or chest pain. Cards okay with discharge with close follow-up. Vitals Vitals Vital Signs Date Time Temp Pulse Resp B/P (MAP) Pulse Ox O2 Delivery O2 Flow Rate FiO2 09/09/18 08:31 85 152/67 09/09/18 07:00 97.9 18 97 Nasal Cannula 2.0 97.9 Physical Exam General: Alert, Oriented X3, Cooperative, No acute distress Heart: Regular rate, Normal S1, Other (S4, 3/6 systolic murmur to LLS border) Lungs: Clear Abdomen: Normal bowel sounds, Soft, No tenderness Extremities: No clubbing, No cyanosis, No edema, Other (3+ bilateral Le pitting edema) Skin: No rashes, No significant lesion, Other (Left foot poor healing ulcer) Labs LABS Laboratory Tests Test 09/09/18 03:30 White Blood Count 7.4 x10^3/uL (4.0-11.0) Red Blood Count 4.12 x10^6/uL (4.30-5.70) Hemoglobin 12.3 g/dL (13.0-17.5) Hematocrit 38.3 % (39.0-53.0) Mean Corpuscular Volume 93 fL (79-100) Mean Corpuscular Hemoglobin 30 pg (25-35) Mean Corpuscular Hemoglobin Concent 32 g/dL (31-37) Red Cell Distribution Width 15.7 % (11.5-14.5) Platelet Count 260 x10^3/uL (140-400) Neutrophils (%) (Auto) 64 % (31-73) Lymphocytes (%) (Auto) 20 % (24-48) Monocytes (%) (Auto) 13 % (0-9) Eosinophils (%) (Auto) 3 % (0-3) Basophils (%) (Auto) 1 % (0-3) Neutrophils # (Auto) 4.7 x10^3uL (1.8-7.7) Lymphocytes # (Auto) 1.5 x10^3/uL (1.0-4.8) Monocytes # (Auto) 0.9 x10^3/uL (0.0-1.1) Eosinophils # (Auto) 0.2 x10^3/uL (0.0-0.7) Basophils # (Auto) 0.0 x10^3/uL (0.0-0.2) Sodium Level 139 mmol/L (136-145) Potassium Level 3.7 mmol/L (3.5-5.1) Chloride Level 102 mmol/L (98-107) Carbon Dioxide Level 28 mmol/L (21-32) Anion Gap 9 (6-14) Blood Urea Nitrogen 24 mg/dL (8-26) Creatinine 1.8 mg/dL (0.7-1.3) Estimated GFR (Cockcroft-Gault) 36.8 Glucose Level 126 mg/dL (70-99) Calcium Level 9.2 mg/dL (8.5-10.1) Review of Systems Review of Systems Denies chest pain Denies shortness of breath Assessment and Plan Assessmemt and Plan Problems Medical Problems: (1) CHF exacerbation Status: Acute Assessment: [id number] systolic and diastolic heart failure. Ejection Fraction is estimated at 30%.global hypokinesis of the left ventricle. There is a large sized, basal to distal inferior, inferolateral and lateral FIXED perfusion defect suggestive of prior infarct with mild davian-infarct viability. The PA pressure was estimated at 50 mmHg. 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 CKD stage3- 4 DANNA on CKD 3: followed by Dr. Stewart as outpt CAD: CABGx2 in 2010 HTN: Hyperlipidemia DM. 2: diet controlled PAD with left foot ulcer: recent percutaneous revascularization per Dr. Maurer at [facility] hypoxic resp failure malignant severe hypertension on admission Large inferior and lateral fixed defect. NEW ISSUE ON MPI Plan: Continue plavix and eliquis, follow up with Cards outpatient Okay to discharge per Card note with close follow-up Follow up with PCP outpatient Continue meds at home Return to ED with worsening symptoms Follow up with Nephrology outpatient, CKD 3-4 Continue to monitor vitals Comment Review of Relevant I have reviewed the following items viviane (where applicable) has been applied. Labs Laboratory Tests Test 09/07/18 11:55 09/08/18 04:00 09/09/18 03:30 Sodium Level 142 mmol/L (136-145) 142 mmol/L (136-145) 139 mmol/L (136-145) Potassium Level 4.3 mmol/L (3.5-5.1) 3.9 mmol/L (3.5-5.1) 3.7 mmol/L (3.5-5.1) Chloride Level 103 mmol/L (98-107) 104 mmol/L (98-107) 102 mmol/L (98-107) Carbon Dioxide Level 28 mmol/L (21-32) 27 mmol/L (21-32) 28 mmol/L (21-32) Anion Gap 11 (6-14) 11 (6-14) 9 (6-14) Blood Urea Nitrogen 24 mg/dL (8-26) 25 mg/dL (8-26) 24 mg/dL (8-26) Creatinine 1.8 mg/dL (0.7-1.3) 1.8 mg/dL (0.7-1.3) 1.8 mg/dL (0.7-1.3) Estimated GFR (Cockcroft-Gault) 36.8 36.8 36.8 Glucose Level 110 mg/dL (70-99) 101 mg/dL (70-99) 126 mg/dL (70-99) Calcium Level 9.7 mg/dL (8.5-10.1) 9.3 mg/dL (8.5-10.1) 9.2 mg/dL (8.5-10.1) White Blood Count 7.4 x10^3/uL (4.0-11.0) Red Blood Count 4.12 x10^6/uL (4.30-5.70) Hemoglobin 12.3 g/dL (13.0-17.5) Hematocrit 38.3 % (39.0-53.0) Mean Corpuscular Volume 93 fL (79-100) Mean Corpuscular Hemoglobin 30 pg (25-35) Mean Corpuscular Hemoglobin Concent 32 g/dL (31-37) Red Cell Distribution Width 15.7 % (11.5-14.5) Platelet Count 260 x10^3/uL (140-400) Neutrophils (%) (Auto) 64 % (31-73) Lymphocytes (%) (Auto) 20 % (24-48) Monocytes (%) (Auto) 13 % (0-9) Eosinophils (%) (Auto) 3 % (0-3) Basophils (%) (Auto) 1 % (0-3) Neutrophils # (Auto) 4.7 x10^3uL (1.8-7.7) Lymphocytes # (Auto) 1.5 x10^3/uL (1.0-4.8) Monocytes # (Auto) 0.9 x10^3/uL (0.0-1.1) Eosinophils # (Auto) 0.2 x10^3/uL (0.0-0.7) Basophils # (Auto) 0.0 x10^3/uL (0.0-0.2) Laboratory Tests Test 09/09/18 03:30 White Blood Count 7.4 x10^3/uL (4.0-11.0) Red Blood Count 4.12 x10^6/uL (4.30-5.70) Hemoglobin 12.3 g/dL (13.0-17.5) Hematocrit 38.3 % (39.0-53.0) Mean Corpuscular Volume 93 fL (79-100) Mean Corpuscular Hemoglobin 30 pg (25-35) Mean Corpuscular Hemoglobin Concent 32 g/dL (31-37) Red Cell Distribution Width 15.7 % (11.5-14.5) Platelet Count 260 x10^3/uL (140-400) Neutrophils (%) (Auto) 64 % (31-73) Lymphocytes (%) (Auto) 20 % (24-48) Monocytes (%) (Auto) 13 % (0-9) Eosinophils (%) (Auto) 3 % (0-3) Basophils (%) (Auto) 1 % (0-3) Neutrophils # (Auto) 4.7 x10^3uL (1.8-7.7) Lymphocytes # (Auto) 1.5 x10^3/uL (1.0-4.8) Monocytes # (Auto) 0.9 x10^3/uL (0.0-1.1) Eosinophils # (Auto) 0.2 x10^3/uL (0.0-0.7) Basophils # (Auto) 0.0 x10^3/uL (0.0-0.2) Sodium Level 139 mmol/L (136-145) Potassium Level 3.7 mmol/L (3.5-5.1) Chloride Level 102 mmol/L (98-107) Carbon Dioxide Level 28 mmol/L (21-32) Anion Gap 9 (6-14) Blood Urea Nitrogen 24 mg/dL (8-26) Creatinine 1.8 mg/dL (0.7-1.3) Estimated GFR (Cockcroft-Gault) 36.8 Glucose Level 126 mg/dL (70-99) Calcium Level 9.2 mg/dL (8.5-10.1) Medications Current Medications Furosemide (Lasix) 40 mg 1X ONCE IVP Last administered on 09/06/18at 15:17; Start 09/06/18 at 14:15; Stop 09/06/18 at 14:16; Status DC Ondansetron HCl (Zofran) 4 mg PRN Q8HRS PRN IV NAUSEA/VOMITING; Start 09/06/18 at 14:15; Stop 09/06/18 at 14:17; Status DC Morphine Sulfate (Morphine Sulfate) 4 mg PRN Q2HR PRN IV PAIN; Start 09/06/18 at 14:15; Stop 09/06/18 at 14:17; Status DC Sodium Chloride 1,000 ml @ 100 mls/hr Q10H IV ; Start 09/06/18 at 14:10; Stop 09/06/18 at 14:17; Status DC Ondansetron HCl (Zofran) 4 mg PRN Q8HRS PRN IV NAUSEA/VOMITING; Start 09/06/18 at 14:30; Stop 09/07/18 at 14:29; Status DC Furosemide (Lasix) 40 mg DAILY IVP Last administered on 09/08/18 09:09; Start 09/07/18 at 09:00; Stop 09/08/18 at 16:58; Status DC Aspirin (Ecotrin) 81 mg DAILY07 PO Last administered on 09/08/18at 09:10; Start 09/07/18 at 07:00; Stop 09/08/18 at 13:59; Status DC Clopidogrel Bisulfate (Plavix) 75 mg DAILY PO Last administered on 09/09/18 08 :29; Start 09/07/18 at 09:00 EZETIMIBE (Zetia) 10 mg DAILY PO Last administered on 09/09/18 08:29; Start at 09:00 Losartan Potassium (Cozaar) 100 mg DAILY PO Last administered on 09/09/18at 08: 31; Start 09/07/18 at 09:00 Enoxaparin Sodium (Lovenox 100mg Syringe) 100 mg 1X ONCE SQ Last administered on 09/06/18 18:06; Start 09/06/18 at 17:45; Stop 09/06/18 at 17:46; Status DC Metoprolol Succinate (Toprol Xl) 25 mg DAILY PO Last administered on 09/09/18 08:29; Start 09/07/18 at 09:00 Amlodipine Besylate (Norvasc) 10 mg 1X ONCE PO Last administered on 09/06/18at 17:59; Start 09/06/18 at 17:45; Stop 09/06/18 at 17:47; Status DC Hydralazine HCl (Apresoline Inj) 10 mg PRN Q4HRS PRN IVP ELEVATED BP, SEE COMMENTS; Start 09/06/18 at 17:45 Regadenoson (Lexiscan) 0.4 mg 1X ONCE IV ; Start 09/07/18 at 12:45; Stop at 12:46; Status DC Allopurinol (Zyloprim) 200 mg DAILY PO Last administered on 09/09/18at 08:30; Start 09/07/18 at 15:00 Gemfibrozil (Lopid) 600 mg DAILY PO Last administered on 09/09/18 08:29; Start 09/07/18 at 15:00 Acetaminophen/ Hydrocodone Bitart (Lortab 10/325) 1 tab PRN Q6HRS PRN PO PAIN; Start 09/07/18 at 14:45 Tamsulosin HCl (Flomax) 0.4 mg HS PO Last administered on 09/08/18 21:47; Start 09/07/18 at 21:00 Ascorbic Acid (Vitamin C) 1,000 mg DAILY PO Last administered on 09/09/18 08: 30; Start 09/07/18 at 15:00 Cephalexin HCl (Keflex) 500 mg TID PO Last administered on 09/08/18 09:10; Start 09/07/18 at 15:00; Stop 09/08/18 at 09:01; Status DC Pantoprazole Sodium (Protonix) 40 mg DAILYAC PO Last administered on 09/09/18 08:33; Start 09/07/18 at 15:00 Multivitamins (Thera M Plus) 1 tab DAILY PO Last administered on 09/09/18 08: 29; Start 09/07/18 at 15:00 Non-Formulary Medication (Ubidecarenone (Co Q-10)) 200 mg DAILY PO ; Start 09/08 at 09:00; Status UNV Regadenoson (Lexiscan) 0.4 mg STK-MED ONCE IV ; Start 09/07/18 at 13:30; Stop at 08:33; Status DC Apixaban (Eliquis) 5 mg BID PO Last administered on 09/09/18 08:30; Start at 14:00 Furosemide (Lasix) 40 mg DAILY PO Last administered on 09/09/18 08:29; Start 09/09/18 at 09:00 Amlodipine Besylate (Norvasc) 5 mg DAILY PO Last administered on 09/09/18 08: 28; Start 09/08/18 at 18:00 Active Scripts Active Reported Toprol Xl (Metoprolol Succinate) 50 Mg Tab.er.24h 100 Mg PO DAILY Flomax (Tamsulosin Hcl) 0.4 Mg Cap.er.24h 1 Cap PO HS Cephalexin 500 Mg Capsule 1 Cap PO TID Allopurinol 100 Mg Tablet 2 Tab PO DAILY Amlodipine Besylate 5 Mg Tablet 5 Mg PO DAILY Testosterone Cypionate 200 Mg/1 Ml Vial 1 Ml IM [id number] Hydrocodone-Apap 10-325 (Hydrocodone Bit/Acetaminophen) 1 Each Tablet 1 Tab PO PRN Q6HRS PRN Clopidogrel (Clopidogrel Bisulfate) 75 Mg Tablet 1 Tab PO DAILY Vitamin C (Ascorbic Acid) 1,000 Mg Tablet 1,000 Mg PO DAILY Vitamin E (Vitamin E Mixed) 400 Unit Capsule 400 Unit PO Aspir 81 (Aspirin) 81 Mg Tablet. 1 Tab PO DAILY Co Q-10 (Ubidecarenone) 200 Mg Capsule 200 Mg PO DAILY Krill Oil 500 Mg Capsule 500 Mg PO Multi-Vitamin Daily (Multivitamin) 1 Each Tablet 1 Each PO DAILY Propafenone Hcl 150 Mg Tablet 225 Mg PO BID Gemfibrozil 600 Mg Tablet 1 Tab PO DAILY Zetia (Ezetimibe) 10 Mg Tablet 1 Tab PO DAILY Losartan Potassium 100 Mg Tablet 100 Mg PO DAILY Nexium Capsule (Esomeprazole Magnesium) 40 Mg Capsule. 1 Cap PO DAILY Vitals/I & O Vital Sign - Last 24 Hours 09/08/18 09/08/18 09/08/18 09/08/18 11:03 15:00 17:42 19:27 Temp 97.4 97.7 98.6 97.4 97.7 98.6 Pulse 72 83 83 64 Resp 20 B/P (MAP) 158/67 (97) 152/67 (95) 152/67 152/70 (97) Pulse Ox 91 95 94 O2 Delivery Nasal Cannula Nasal Cannula Room Air O2 Flow Rate 2.0 2.0 09/08/18 09/09/18 09/09/18 09/09/18 22:58 03:16 07:00 08:28 Temp 97.9 98.1 97.9 97.9 98.1 97.9 Pulse 64 62 85 85 Resp 18 B/P (MAP) 151/67 (95) 150/68 (95) 152/67 (95) 152/67 Pulse Ox 95 97 97 O2 Delivery Room Air Nasal Cannula Nasal Cannula O2 Flow Rate 2.0 2.0 09/09/18 09/09/18 08:29 08:31 Pulse 85 85 B/P (MAP) 152/67 152/67 Intake and Output 09/08/18 09/08/1809/09/19 15:00 23:00 07:00 Intake Total 750 ml 400 ml Balance 750 ml 400 ml JOLEEN ROSENBERG III DO Sep 09, 2018 10:28
--- NOTE | 2018-09-09 10:33 | DS ---
DATE OF DISCHARGE: 09/09/2018 ADMISSION DIAGNOSIS: Congestive heart failure. DISCHARGE DIAGNOSIS: Resolving acute on chronic systolic and diastolic heart failure. HOSPITAL COURSE: The patient is a pleasant middle-aged male, who presented with acute on chronic systolic and diastolic heart failure. We admitted the patient to telemetry. We did serial enzymes, serial EKGs, echocardiogram. We consulted Cardiology. We diuresed him with IV Lasix. This morning, I saw him and examined him, his heart tones were normal. His lungs were clear. I discussed the case with Cardiology. They are okay with him going home. We plan to discharge with close outpatient followup. DISPOSITION: Home. ACTIVITY: As tolerated. DIET: Cardiac. MEDICATIONS: Please see MRAD. TOTAL TIME: 36 minutes. JOLEEN ROSENBERG DO DR: NACHO/natasha JOB#: [id number] / [id number]
--- NOTE | 2018-09-09 10:52 | PDOC ---
SUBJECTIVE ROS Follow-up for chronic kidney disease stage III Patient ready to go home today OBJECTIVE Vital Signs Vital Signs Date Time Temp Pulse Resp B/P (MAP) Pulse Ox O2 Delivery O2 Flow Rate FiO2 09/09/18 08:31 85 152/67 09/09/18 07:00 97.9 18 97 Nasal Cannula 2.0 97.9 I & 0 Intake and Output 09/09/18 06:59 Intake Total 1150 ml Balance 1150 ml Intake Oral 1150 ml PHYSICAL EXAM Physical Exam General Appearance: Awake: Alert Oriented x 3 Neck: No JVD or JVP Chest: CTA Iain Heart: S1 S2 Abdomen - Soft NTND Extremities - No Edema DIAGNOSIS/ASSESSMENT Assessment & Plan Chronic Kidney disease stage III plus congestive heart failure: Creatinine is stable continue ARB. Discussed care with patient's and suggested that she establish a follow-up visit with our office in 2-4 weeks. Discussed with nurse also. COMMENT/RELEVANT DATA Meds Current Medications Medications (Trade) Dose Ordered Sig/Cha Start Time Stop Time Status Last Admin Dose Admin Acetaminophen/ Hydrocodone Bitart (Lortab 10/325) 1 tab PRN Q6HRS PRN 09/07/18 14:45 Allopurinol (Zyloprim) 200 mg DAILY 09/07/18 15:00 09/09/18 08:30 200 MG Amlodipine Besylate (Norvasc) 5 mg DAILY 09/08/18 18:00 09/09/18 08:28 5 MG Apixaban (Eliquis) 5 mg BID 09/08/18 14:00 09/09/18 08:30 5 MG Ascorbic Acid (Vitamin C) 1,000 mg DAILY 09/07/18 15:00 09/09/18 08:30 1,000 MG Aspirin (Ecotrin) 81 mg DAILY07 09/07/18 07:00 09/08/18 13:59 DC 09/08/18 09:10 81 MG Cephalexin HCl (Keflex) 500 mg TID 09/07/18 15:00 09/08/18 09:01 DC 09/08/18 09:10 500 MG Clopidogrel Bisulfate (Plavix) 75 mg DAILY 09/07/18 09:00 09/09/18 08:29 75 MG Enoxaparin Sodium (Lovenox 100mg Syringe) 100 mg 1X ONCE 09/06/18 17:45 09/06/18 17:46 DC 09/06/18 18:06 100 MG EZETIMIBE (Zetia) 10 mg DAILY 09/07/18 09:00 09/09/18 08:29 10 MG Furosemide (Lasix) 40 mg DAILY 09/09/18 09:00 09/09/18 08:29 40 MG Gemfibrozil (Lopid) 600 mg DAILY 09/07/18 15:00 09/09/18 08:29 600 MG Hydralazine HCl (Apresoline Inj) 10 mg PRN Q4HRS PRN 09/06/18 17:45 Losartan Potassium (Cozaar) 100 mg DAILY 09/07/18 09:00 09/09/18 08:31 100 MG Metoprolol Succinate (Toprol Xl) 25 mg DAILY 09/07/18 09:00 09/09/18 08:29 25 MG Morphine Sulfate (Morphine Sulfate) 4 mg PRN Q2HR PRN 09/06/18 14:15 09/06/18 14:17 DC Multivitamins (Thera M Plus) 1 tab DAILY 09/07/18 15:00 09/09/18 08:29 1 TAB Non-Formulary Medication (Ubidecarenone (Co Q-10)) 200 mg DAILY 09/08/18 09:00 UNV Ondansetron HCl (Zofran) 4 mg PRN Q8HRS PRN 09/06/18 14:30 09/07/18 14:29 DC Pantoprazole Sodium (Protonix) 40 mg DAILYAC 09/07/18 15:00 09/09/18 08:33 40 MG Regadenoson (Lexiscan) 0.4 mg STK-MED ONCE 09/07/18 13:30 09/08/18 08:33 DC Sodium Chloride 1,000 ml @ 100 mls/hr Q10H 09/06/18 14:10 09/06/18 14:17 DC Tamsulosin HCl (Flomax) 0.4 mg HS 09/07/18 21:00 09/08/18 21:47 0.4 MG Lab Laboratory Tests Test 09/09/18 03:30 White Blood Count 7.4 x10^3/uL (4.0-11.0) Red Blood Count 4.12 x10^6/uL (4.30-5.70) Hemoglobin 12.3 g/dL (13.0-17.5) Hematocrit 38.3 % (39.0-53.0) Mean Corpuscular Volume 93 fL (79-100) Mean Corpuscular Hemoglobin 30 pg (25-35) Mean Corpuscular Hemoglobin Concent 32 g/dL (31-37) Red Cell Distribution Width 15.7 % (11.5-14.5) Platelet Count 260 x10^3/uL (140-400) Neutrophils (%) (Auto) 64 % (31-73) Lymphocytes (%) (Auto) 20 % (24-48) Monocytes (%) (Auto) 13 % (0-9) Eosinophils (%) (Auto) 3 % (0-3) Basophils (%) (Auto) 1 % (0-3) Neutrophils # (Auto) 4.7 x10^3uL (1.8-7.7) Lymphocytes # (Auto) 1.5 x10^3/uL (1.0-4.8) Monocytes # (Auto) 0.9 x10^3/uL (0.0-1.1) Eosinophils # (Auto) 0.2 x10^3/uL (0.0-0.7) Basophils # (Auto) 0.0 x10^3/uL (0.0-0.2) Sodium Level 139 mmol/L (136-145) Potassium Level 3.7 mmol/L (3.5-5.1) Chloride Level 102 mmol/L (98-107) Carbon Dioxide Level 28 mmol/L (21-32) Anion Gap 9 (6-14) Blood Urea Nitrogen 24 mg/dL (8-26) Creatinine 1.8 mg/dL (0.7-1.3) Estimated GFR (Cockcroft-Gault) 36.8 Glucose Level 126 mg/dL (70-99) Calcium Level 9.2 mg/dL (8.5-10.1) Results All relevant outside records, renal labs, imaging studies, telemetry/EKG's were reviewed. LEXUS KNIGHT MD Sep 09, 2018 10:51
[2018-09-09 11:00] VITALS: BP 149/53
--- NOTE | 2018-09-09 12:49 | NUR ---
Discharge Note: KATHRYN MEEKS [address] Discharge instructions and discharge home medications reviewed with Spouse and a copy given. All questions have been answered and understanding verbalized. The following instructions and handouts were given: Afib, Aflutter, PVD Discontinued lines and drains: L hand peripheral IV line discontinued, no bleeding or bruising, catheter tip intact. Patient discharged to home for self-care and outpatient follow up. Pt to have contact w/cardiology on Tuesday to set fup appt; Dr. Stewart/Sheng in 2-4 weeks, PCP within 1 week or as needed. Home medication list revised and confirmed w/Dr. Mueller, called in scripts for furosemide 40mg PO daily and apixaban 5mg PO BID to [email or web address] at [address] [place] [address].Pt and given coupons for Eliquis first month free and another month at $10 copay. Pt taken out by this customs entry writer by WC after finishing lunch at bedside w/spouse. Given callback number for this nurses' station in the event additional questions arise today.
== END 2018-09-09 13:00 | disposition home or self-care (01) | DRG 280 ==
LOC: ER 12:33 → 2 SOUTH 14:00
PROVIDERS: ADMIT Internal Medicine; ATTEND Internal Medicine
DX: I21.4 Non-ST elevation (NSTEMI) myocardial infarction (principal); I50.43 Acute on chronic combined systolic (congestive) and diastolic (congestive) heart failure; I13.0 Hypertensive heart and chronic kidney disease with heart failure and stage 1 through stage 4 chronic kidney disease, or unspecified chronic kidney disease; N17.9 Acute kidney failure, unspecified; I48.92 Unspecified atrial flutter; E11.22 Type 2 diabetes mellitus with diabetic chronic kidney disease; E11.51 Type 2 diabetes mellitus with diabetic peripheral angiopathy without gangrene; E11.621 Type 2 diabetes mellitus with foot ulcer; E78.00 Pure hypercholesterolemia, unspecified; E78.5 Hyperlipidemia, unspecified; H54.61 Unqualified visual loss, right eye, normal vision left eye; I25.10 Atherosclerotic heart disease of native coronary artery without angina pectoris; M19.90 Unspecified osteoarthritis, unspecified site; I27.20 Pulmonary hypertension, unspecified; M10.9 Gout, unspecified; I25.5 Ischemic cardiomyopathy; I48.91 Unspecified atrial fibrillation; K21.9 Gastro-esophageal reflux disease without esophagitis; L97.529 Non-pressure chronic ulcer of other part of left foot with unspecified severity; Z96.642 Presence of left artificial hip joint; N18.3 Chronic kidney disease, stage 3 (moderate); N40.0 Benign prostatic hyperplasia without lower urinary tract symptoms; Z82.49 Family history of ischemic heart disease and other diseases of the circulatory system; Z95.1 Presence of aortocoronary bypass graft; Z87.891 Personal history of nicotine dependence; Z98.1 Arthrodesis status; Z79.899 Other long term (current) drug therapy; I25.2 Old myocardial infarction; Z88.0 Allergy status to penicillin; Z88.8 Allergy status to other drugs, medicaments and biological substances
CPT/HCPCS: 36415; 71045; 78452; 80048; 80053; 80061; 82550; 82553; 83690; 83735; 83880; 84439; 84443; 84484; 85025; 85610; 93005; 93017; 93306; 96372; 96374; A9500; J1650; J1940; J2785; 99285-25

== ENCOUNTER 2018-09-26 11:38 | Inpatient (IN) | payer MEDICARE ==
[~2018-09-26] VITALS: Ht 182.9 cm; Wt 108.0 kg
[~2018-09-26 11:38] MED LIST changes: +ALLO100T PO; +AMLO5TAB10 PO; +CEPH500C PO; +METO50TA4 PO; +TAMS0.4C97 PO
[2018-09-26] MEDS ORDERED: IV NORMAL SALINE 1000ML BAG 1,000 ML IV ONE (11:45)
[2018-09-26 12:09] LABS: PROTHROMBIN TIME PATIENT 18.1 SEC (11.7-14.0)
[2018-09-26 12:10] LABS: CREATININE 2.2 mg/dL (0.7-1.3); GFR 29.2; POTASSIUM 4.4 mmol/L (3.5-5.1)
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
[2018-09-26 12:16] LABS: ALBUMIN 3.8 g/dL (3.4-5.0); ALBUMIN/GLOBULIN RATIO 0.9 (1.0-1.7); MAGNESIUM 2.1 mg/dL (1.8-2.4); TOTAL BILIRUBIN 0.5 mg/dL (0.2-1.0)
[2018-09-26 12:23] LABS: CREATINE KINASE 48 U/L (39-308)
--- NOTE | 2018-09-26 12:25 | RAD ---
Chest radiograph 09/26/2018 11:40 AM INDICATION: Weakness, slurred speech COMPARISON: September 06, 2018 TECHNIQUE: Portable upright frontal view of the chest is provided. FINDINGS: The cardiomediastinal silhouette is within normal limits. Median sternotomy changes are present. There are no pleural effusions. There is no pulmonary vascular congestion. There is no pneumothorax. The lungs are clear. Calcified bilateral pleural plaques appear stable. No significant osseous abnormality is identified. IMPRESSION: No acute cardiopulmonary process. Calcified pleural plaques may be associated with prior asbestos exposure. Electronically signed by: Carmen Leon MD (09/26/2018 12:22 PM) [id number]
[2018-09-26] MEDS ORDERED: ASPIRIN 325 MG TABLET PO ONE (12:30)
[2018-09-26] MEDS ORDERED: ONDANSETRON PF 4 MG/2 ML VIAL. IV PRN ×2 (12:45→13:15)
[2018-09-26] MEDS ORDERED: DEXTROSE 50% 25 GM / 50ML DISP.SYRIN. IV PRN ×2 (12:45→13:15)
[2018-09-26] MEDS ORDERED: NON FORMULARY ITEM (Testosterone Cypionate 1 ML) IM SCH (13:15)
[2018-09-26] MEDS ORDERED: ACETAMINOPHEN 500 MG TABLET PO PRN (13:15)
[2018-09-26] MEDS ORDERED: HYDROcodone/APAP 10/325 1 TAB TABLET PO PRN (13:15)
[2018-09-26] MEDS ORDERED: hydrALAZINE 20 MG/ML VIAL. IVP PRN (13:15)
--- NOTE | 2018-09-26 13:39 | EKG ---
[facility] [address] [place] [address] Test Date: 2018-09-26 Test Time: 11:47:39 Pat Name: KATHRYN MEEKS Department: Room: Gender: M Morning Nanny: MD : 1940 Requested By: SUE ARRIAGA Order Number: [id number] Reading MD: Abhi Richter MD Measurements Intervals [place] Rate: 60 P: HI: QRS: 34 QRSD: 106 T: 116 QT: 454 QTc: 459 Interpretive Statements CANNOT RULE OUT FLUTTER WITH 4:[address] CON[address]ER SR NON-SPECIFIC ST/T CHANGES Electronically Signed On 10-03-2018 13:45:07 CDT by Abhi Richter MD
--- NOTE | 2018-09-26 13:39 | PDOC1 ---
History and Physical Date of Admission Date of Admission DATE: 09/26/18 TIME: 13:33 Identification/Chief Complaint Chief Complaint slurred Speech, shallow left nasolabial fold Source Source: Caregiver, Chart review, Patient History of Present Illness History of Present Illness Very pleasant 78-year-old male, lives at home with , no assistive device of ambulation, Dysarthria today and weak, Also shallow left NLF 11 PM last night, OUt of tpa window, also on eliquis 5 BID for p A fib, hx CABG 2010, no intracardiac device, Maintained on BB and other cardiac meds, PRev pt of Dr Kamara but now Dr Richter's. NO CP, feels weak and still slow to speech, NIH 2, CT head neg, CXR neg, LAbs neg, VS good Admitted with neuro to consult Past Medical History Cardiovascular: CAD, HTN, Hyperlipidemia, Valve insufficiency, Other GI: Constipation, GERD Hepatobiliary: No pertinent hx Psych: No pertinent hx Musculoskeletal: Osteoarthritis Rheumatologic: Gout Infectious disease: No pertinent hx Renal/: Chronic renal insuff, Benign prostatic enlarg. Past Surgical History Past Surgical History: Arthroscopy, CABG, Total hip replacement, Other Family History Family History: Heart Disease Social History Smoke: No ALCOHOL: none Drugs: None Current Problem List Problem List Problems Medical Problems: (1) Elevated troponin Status: Acute Current Medications Current Medications Current Medications Sodium Chloride 1,000 ml @ 1,000 mls/hr 1X ONCE IV Last administered on at 12:21; Start 09/26/18 at 11:45; Stop 09/26/18 at 12:44; Status DC Aspirin (Kodak Aspirin) 325 mg 1X ONCE PO Last administered on 09/26/18at 13:04 ; Start 09/26/18 at 12:30; Stop 09/26/18 at 12:31; Status DC Ondansetron HCl (Zofran) 4 mg PRN Q8HRS PRN IV NAUSEA/VOMITING; Start 09/26/18 at 12:45; Stop 09/26/18 at 13:05; Status DC Insulin Human Lispro (HumaLOG) 0-5 UNITS TIDWMEALS SQ ; Start 09/26/18 at 17:00 Dextrose (Dextrose 50%-Water Syringe) 12.5 gm PRN Q15MIN PRN IV SEE COMMENTS; Start 09/26/18 at 12:45 Ondansetron HCl (Zofran) 4 mg PRN Q6HRS PRN IV NAUSEA/VOMITING; Start 09/26/18 at 13:15 Acetaminophen (Tylenol) 500 mg PRN Q6HRS PRN PO MILD PAIN / TEMP; Start at 13:15 Insulin Human Lispro (HumaLOG) 0-9 UNITS TIDWMEALS SQ ; Start 09/26/18 at 17:00; Status UNV Dextrose (Dextrose 50%-Water Syringe) 12.5 gm PRN Q15MIN PRN IV SEE COMMENTS; Start 09/26/18 at 13:15 Hydralazine HCl (Apresoline Inj) 10 mg PRN Q4HRS PRN IVP ELEVATED BP, SEE COMMENTS; Start 09/26/18 at 13:15 Allopurinol (Zyloprim) 200 mg DAILY PO ; Start 09/27/18 at 09:00; Status UNV Amlodipine Besylate (Norvasc) 5 mg DAILY PO ; Start 09/27/18 at 09:00; Status UNV Aspirin (Ecotrin) 81 mg DAILY PO ; Start 09/27/18 at 09:00; Status UNV Clopidogrel Bisulfate (Plavix) 75 mg DAILY PO ; Start 09/27/18 at 09:00; Status UNV EZETIMIBE (Zetia) 10 mg DAILY PO ; Start 09/27/18 at 09:00; Status UNV Gemfibrozil (Lopid) 600 mg DAILY PO ; Start 09/27/18 at 09:00; Status UNV Acetaminophen/ Hydrocodone Bitart (Lortab 10/325) 1 tab PRN Q6HRS PRN PO MODERATE-SEVERE PAIN; Start 09/26/18 at 13:15 Metoprolol Succinate (Toprol Xl) 100 mg DAILY PO ; Start 09/27/18 at 09:00; Status UNV Tamsulosin HCl (Flomax) 0.4 mg HS PO ; Start 09/26/18 at 21:00; Status UNV Non-Formulary Medication (Ascorbic Acid (Vitamin C)) 1,000 mg DAILY PO ; Start 09/27/18 at 09:00; Status UNV Non-Formulary Medication (Esomeprazole Magnesium (Nexium Capsule)) 1 cap DAILY PO ; Start 09/27/18 at 09:00; Status UNV Non-Formulary Medication (Losartan Potassium ) 100 mg DAILY PO ; Start 09/27/18 at 09:00; Status UNV Non-Formulary Medication (Multivitamin (Multi-Vitamin Daily)) 1 each DAILY PO ; Start 09/27/18 at 09:00; Status UNV Non-Formulary Medication (Propafenone Hcl ) 225 mg BID PO ; Start 09/26/18 at 21: 00; Status UNV Non-Formulary Medication (Testosterone Cypionate ) 1 ml [id number] IM ; Start at 13:15; Status UNV Non-Formulary Medication (Ubidecarenone (Co Q-10)) 200 mg DAILY PO ; Start 09/27 at 09:00; Status UNV Active Scripts Active Reported Toprol Xl (Metoprolol Succinate) 50 Mg Tab.er.24h 100 Mg PO DAILY Flomax (Tamsulosin Hcl) 0.4 Mg Cap.er.24h 1 Cap PO HS Cephalexin 500 Mg Capsule 1 Cap PO TID Allopurinol 100 Mg Tablet 2 Tab PO DAILY Amlodipine Besylate 5 Mg Tablet 5 Mg PO DAILY Testosterone Cypionate 200 Mg/1 Ml Vial 1 Ml IM [id number] Hydrocodone-Apap 10-325 (Hydrocodone Bit/Acetaminophen) 1 Each Tablet 1 Tab PO PRN Q6HRS PRN Clopidogrel (Clopidogrel Bisulfate) 75 Mg Tablet 1 Tab PO DAILY Vitamin C (Ascorbic Acid) 1,000 Mg Tablet 1,000 Mg PO DAILY Vitamin E (Vitamin E Mixed) 400 Unit Capsule 400 Unit PO Aspir 81 (Aspirin) 81 Mg Tablet.dr 1 Tab PO DAILY Co Q-10 (Ubidecarenone) 200 Mg Capsule 200 Mg PO DAILY Krill Oil 500 Mg Capsule 500 Mg PO Multi-Vitamin Daily (Multivitamin) 1 Each Tablet 1 Each PO DAILY Propafenone Hcl 150 Mg Tablet 225 Mg PO BID Gemfibrozil 600 Mg Tablet 1 Tab PO DAILY Zetia (Ezetimibe) 10 Mg Tablet 1 Tab PO DAILY Losartan Potassium 100 Mg Tablet 100 Mg PO DAILY Nexium Capsule (Esomeprazole Magnesium) 40 Mg Capsule.dr 1 Cap PO DAILY Allergies Allergies: Coded Allergies: Penicillins (Verified Allergy, Intermediate, rash, 09/06/18) amiodarone (Verified Allergy, Intermediate, 12/23/16) ROS Review of System Asper history of present illness, the rest of ROS 14 point negative Physical Exam General: Alert, Oriented X3, Cooperative, No acute distress HEENT: Atraumatic, PERRLA, EOMI, Other (shallow left nasolabial fold) Lungs: Clear to auscultation, Normal air movement Heart: S1S2, RRR, no thrills, no rubs, no gallops, no murmurs Cardiovascular: S1, S2 Abdomen: Normal bowel sounds, Soft, No tenderness, No hepatosplenomegaly, No masses Male Genitals Exam: normal genitalia, normal prostate Rectal Exam: not examined PELVIC: Nml ext genitalia Extremities: No clubbing, No cyanosis, No edema, Normal pulses, No tenderness/ swelling Skin: No rashes, No breakdown, No significant lesion Neuro: Normal gait, Normal speech, Strength at 5/5 X4 ext, Normal tone, Sensation intact, Reflexes 2+ Psych/Mental Status: Mental status NL, Mood NL Vitals Vitals Vital Signs Date Time Temp Pulse Resp B/P (MAP) Pulse Ox O2 Delivery O2 Flow Rate FiO2 09/26/18 11:38 97.4 60 18 165/70 (101) 99 Room Air 97.4 Labs Labs Laboratory Tests Test 09/26/18 11:49 Prothrombin Time 18.1 SEC (11.7-14.0) Prothromb Time International Ratio 1.5 (0.8-1.1) Activated Partial Thromboplast Time 49 SEC (24-38) Sodium Level 136 mmol/L (136-145) Potassium Level 4.4 mmol/L (3.5-5.1) Chloride Level 99 mmol/L (98-107) Carbon Dioxide Level 24 mmol/L (21-32) Anion Gap 13 (6-14) Blood Urea Nitrogen 40 mg/dL (8-26) Creatinine 2.2 mg/dL (0.7-1.3) Estimated GFR (Cockcroft-Gault) 29.2 BUN/Creatinine Ratio 18 (6-20) Glucose Level 202 mg/dL (70-99) Lactic Acid Level 1.4 mmol/L (0.4-2.0) Calcium Level 10.0 mg/dL (8.5-10.1) Magnesium Level 2.1 mg/dL (1.8-2.4) Total Bilirubin 0.5 mg/dL (0.2-1.0) Aspartate Amino Transf (AST/SGOT) 18 U/L (15-37) Alanine Aminotransferase (ALT/SGPT) 19 U/L (16-63) Alkaline Phosphatase 94 U/L (46-116) Creatine Kinase 48 U/L (39-308) Creatine Kinase MB (Mass) 1.3 ng/mL (0.0-3.6) Creatine Kinase MB Relative Index % (0-4) Troponin I Quantitative 0.081 ng/mL (0.000-0.055) Total Protein 8.0 g/dL (6.4-8.2) Albumin 3.8 g/dL (3.4-5.0) Albumin/Globulin Ratio 0.9 (1.0-1.7) Laboratory Tests Test 09/26/18 11:49 Prothrombin Time 18.1 SEC (11.7-14.0) Prothromb Time International Ratio 1.5 (0.8-1.1) Activated Partial Thromboplast Time 49 SEC (24-38) Sodium Level 136 mmol/L (136-145) Potassium Level 4.4 mmol/L (3.5-5.1) Chloride Level 99 mmol/L (98-107) Carbon Dioxide Level 24 mmol/L (21-32) Anion Gap 13 (6-14) Blood Urea Nitrogen 40 mg/dL (8-26) Creatinine 2.2 mg/dL (0.7-1.3) Estimated GFR (Cockcroft-Gault) 29.2 BUN/Creatinine Ratio 18 (6-20) Glucose Level 202 mg/dL (70-99) Lactic Acid Level 1.4 mmol/L (0.4-2.0) Calcium Level 10.0 mg/dL (8.5-10.1) Magnesium Level 2.1 mg/dL (1.8-2.4) Total Bilirubin 0.5 mg/dL (0.2-1.0) Aspartate Amino Transf (AST/SGOT) 18 U/L (15-37) Alanine Aminotransferase (ALT/SGPT) 19 U/L (16-63) Alkaline Phosphatase 94 U/L (46-116) Creatine Kinase 48 U/L (39-308) Creatine Kinase MB (Mass) 1.3 ng/mL (0.0-3.6) Creatine Kinase MB Relative Index % (0-4) Troponin I Quantitative 0.081 ng/mL (0.000-0.055) Total Protein 8.0 g/dL (6.4-8.2) Albumin 3.8 g/dL (3.4-5.0) Albumin/Globulin Ratio 0.9 (1.0-1.7) VTE Prophylaxis Ordered VTE Prophylaxis Devices: Yes VTE Pharmacological Prophylaxi: Yes Assessment/Plan Assessment/Plan Shallow left nasolabial fold, dysarthria Generalized weakness Paroxysmal A. 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 History N STEMI Diabetes type 2 rather controlled PLAN: GOT Aspirin 325 by ER Home meds reconciled including Plavix and Eliquis claims they do not take aspirin anymore Neuro checks Consult neurology I defer MRI order care of neurology as per hospital protocol - might need MRI since neuro findings and hx a fib PT OT Scale insulin okay for ADA diet FULL CODE Seen at ER SALTY GARVIN MD Sep 26, 2018 13:39
[2018-09-26 14:02] LABS: BILIRUBIN,URINE NEGATIVE (NEG); CLARITY,URINE CLEAR; COLOR,URINE YELLOW; NITRITE,URINE NEGATIVE (NEG); PH,URINE 6.5; PROTEIN,URINE NEGATIVE (NEG-TRACE); UROBILINOGEN,URINE 0.2 mg/dL (0.2 mg/dL)
[2018-09-26 14:10] LABS: BACTERIA,URINE 0 /HPF (0-FEW); HYALINE CASTS, URINE MODERATE /HPF; RBC,URINE OCC /HPF (0-2); SQUAMOUS EPITHELIAL CELL,UR FEW /LPF; WBC,URINE OCC /HPF (0-4)
[2018-09-26 14:55] LABS: BASO % 1 % (0-3); EOS # 0.1 x10^3/uL (0.0-0.7); EOS % 2 % (0-3); HEMATOCRIT 41.8 % (39.0-53.0); HEMOGLOBIN 13.5 g/dL (13.0-17.5); LYMPH % 27 % (24-48); MEAN CORPUSCULAR HEMOGLOBIN 30 pg (25-35); MEAN CORPUSCULAR HGB CONC 32 g/dL (31-37); MEAN CORPUSCULAR VOLUME 93 fL (79-100); MONO # 0.6 x10^3/uL (0.0-1.1); MONO % 9 % (0-9); NEUT # 4.6 x10^3uL (1.8-7.7); NEUT % 62 % (31-73); PLATELET COUNT 324 x10^3/uL (140-400); RED BLOOD COUNT 4.48 x10^6/uL (4.30-5.70); RED CELL DISTRIBUTION WIDTH 16.2 % (11.5-14.5); WHITE BLOOD COUNT 7.5 x10^3/uL (4.0-11.0)
[2018-09-26] MEDS: CLOPIDOGREL BISULFATE 75 MG TABLET PO SCH (15:00)
[2018-09-26] MEDS: METOPROLOL SUCC 24HR ER 50 MG TAB.ER.24H. PO SCH (15:00)
[2018-09-26] MEDS: amLODIPine BESYLATE 5 MG TABLET PO SCH (15:00)
[2018-09-26] MEDS: EZETIMIBE 10 MG TABLET. PO SCH (15:00)
[2018-09-26] MEDS: ASCORBIC ACID 500 MG TABLET PO SCH (15:00)
[2018-09-26] MEDS: LOSARTAN POTASSIUM 50 MG TABLET. PO SCH (15:00)
[2018-09-26] MEDS: APIXABAN 5 MG TABLET. PO SCH ×2 (15:00→21:13)
[2018-09-26] MEDS: GEMFIBROZIL 600 MG TABLET. PO SCH (15:00)
[2018-09-26] MEDS: PANTOPRAZOLE 40 MG TABLET.DR. PO SCH (15:00)
[2018-09-26] MEDS: ALLOPURINOL 100 MG TABLET. PO SCH (15:00)
[2018-09-26] MEDS: MULTIVITAMIN with MINERAL TABLET. PO SCH (15:00)
[2018-09-26 15:10] VITALS: BP 148/88
[2018-09-26] MEDS ORDERED: INSULIN LISPRO 300 UNITS/3 ML INSULN.PEN. SQ SCH (17:00)
[2018-09-26] MEDS: INSULIN LISPRO 300 UNITS/3 ML INSULN.PEN. SQ SCH (17:00)
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
[2018-09-26 19:36] VITALS: BP 154/67
[2018-09-26] MEDS: TAMSULOSIN 0.4 MG CAP.ER.24H. PO SCH (21:13)
[2018-09-26] MEDS: PROPAFENONE 150 MG TABLET. PO SCH (21:13)
[2018-09-26 23:16] VITALS: BP 170/68
[2018-09-27] VITALS (7 sets, daily range): BP systolic 113–140; BP diastolic 53–81
[2018-09-27 07:14] LABS: CALCIUM 9.6 mg/dL (8.5-10.1); CREATININE 1.8 mg/dL (0.7-1.3); GFR 36.8; POTASSIUM 4.2 mmol/L (3.5-5.1)
[2018-09-27 07:15] LABS: CHOLESTEROL/HDL RATIO 7.5
[2018-09-27] MEDS: INSULIN LISPRO 300 UNITS/3 ML INSULN.PEN. SQ SCH ×3 (08:00→17:00)
--- NOTE | 2018-09-27 08:35 | NUR ---
SW following pt for anticipated dc needs. Chart reviewed. Pt lives at home with spouse. PT/OT pending. SW will await for PT/OT recommendation to assess skilled needs. Will continue to follow.
[2018-09-27] MEDS ORDERED: NON FORMULARY ITEM (Ubidecarenone (Co Q-10) 200 MG) PO SCH (09:00)
[2018-09-27] MEDS ORDERED: ASPIRIN ENTERIC COATED 81 MG TABLET.DR. PO SCH (09:00)
[2018-09-27] MEDS: ALLOPURINOL 100 MG TABLET. PO SCH (09:16)
[2018-09-27] MEDS: MULTIVITAMIN with MINERAL TABLET. PO SCH (09:16)
[2018-09-27] MEDS: CLOPIDOGREL BISULFATE 75 MG TABLET PO SCH (09:16)
[2018-09-27] MEDS: METOPROLOL SUCC 24HR ER 50 MG TAB.ER.24H. PO SCH (09:16)
[2018-09-27] MEDS: amLODIPine BESYLATE 5 MG TABLET PO SCH (09:17)
[2018-09-27] MEDS: EZETIMIBE 10 MG TABLET. PO SCH (09:17)
[2018-09-27] MEDS: ASCORBIC ACID 500 MG TABLET PO SCH (09:17)
[2018-09-27] MEDS: GEMFIBROZIL 600 MG TABLET. PO SCH (09:17)
[2018-09-27] MEDS: PANTOPRAZOLE 40 MG TABLET.DR. PO SCH (09:17)
[2018-09-27] MEDS: APIXABAN 5 MG TABLET. PO SCH (09:17)
[2018-09-27] MEDS: LOSARTAN POTASSIUM 50 MG TABLET. PO SCH (09:18)
[2018-09-27] MEDS: PROPAFENONE 150 MG TABLET. PO SCH (09:27)
--- NOTE | 2018-09-27 09:43 | RAD ---
MRI of the brain without contrast 09/27/2018 Clinical History: Weakness left greater than right, unsteady gait. Dysarthria for one day. Technique: Unenhanced T1-weighted sagittal and axial, T2-weighted axial and coronal and FLAIR, gradient echo and diffusion-weighted axial images of the brain were obtained. Findings: Comparison is made to the patient's CT scan of the head dated 09/26/2018. Images from the study are degraded by patient motion. There is generalized parenchymal atrophy. Patchy, confluent and multiple focal areas of increased signal intensity are seen within the periventricular and subcortical white matter of both cerebral hemispheres on the FLAIR and T2-weighted images consistent with areas of small vessel ischemic disease. An area encephalomalacia is seen involving the right superior parietal lobe. This measures 2.6 cm in size. Old areas of lacunar infarction are seen within the periventricular white matter of the right frontal lobe. These measure 5 mm to 1.2 cm in size. A somewhat oval-shaped area of restricted diffusion is seen involving the right aspect of the nicho near the midline which measures 1.7 cm in greatest diameter. This is consistent with an area of acute lacunar ischemia/infarction. There is no significant surrounding edema or associated mass effect. No additional acute parenchymal abnormality is seen. No extra-axial fluid collection is noted. Moderate to severe mucosal thickening is seen scattered throughout the paranasal sinuses. There are small bilateral mastoid effusions. Normal flow voids are seen within the major vascular structures surrounding the brain parenchyma. Impression: 1.7 cm area of acute lacunar ischemia/infarction is seen involving the right aspect of the nicho near the midline. There is no significant surrounding edema or associated mass effect. The patient's nurse was notified of this finding. Electronically signed by: Dimitris Raymond MD (09/27/2018 9:40 AM) [id number]
--- NOTE | 2018-09-27 10:48 | PDOC ---
PROGRESS NOTES History of Present Illness History of Present Illness Assessment/Plan Assessment/Plan mri head new : 1.7 cm area of acute lacunar ischemia/infarction is seen involving the right aspect of the nicho near the midline. There is no significant surrounding edema or associated mass effect. The Left Ventricle is borderline dilated. Left ventricle systolic function is moderate to severely impaired. The Ejection Fraction is estimated at 30%. c/w cardiomyopathy There is global hypokinesis of the left ventricle. Doppler and Color Flow revealed mild aortic regurgitation. Doppler and Color-flow revealed mild mitral regurgitation. Doppler and Color Flow revealed mild tricuspid regurgitation. The PA pressure was estimated at 50 mmHg. Shallow left nasolabial fold, dysarthria Generalized weakness Paroxysmal A. 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 History N STEMI Diabetes type 2 rather controlled dysphagia pulmonary hypertension, mod-severe PLAN: possibly change to entresto from losarten if ok with nephrology cardiology consult pulm consult video-swallow today, Aspirin 325 Home meds reconciled including Plavix and Eliquis Neuro checks q 4 hrs Consult neurology MRI reviewed PT OT Scale insulin okay for ADA diet FULL CODE consult nephrology 43 min pt exam, chart review > 50% of time spent with exam, chart review, pt care coordination Vitals Vitals Vital Signs Date Time Temp Pulse Resp B/P (MAP) Pulse Ox O2 Delivery O2 Flow Rate FiO2 09/27/18 09:27 63 119/81 09/27/18 07:00 98.1 16 95 Room Air 98.1 Physical Exam General: Alert, Oriented X3, Cooperative, No acute distress Heart: Other (irr) Lungs: Clear Abdomen: Normal bowel sounds, Soft, No tenderness, No hepatosplenomegaly, No masses Extremities: No clubbing, No cyanosis, No edema, Normal pulses, No tenderness/ swelling Skin: No rashes, No breakdown, No significant lesion Labs LABS AORTIC VALVE The aortic valve is mildly thickened but opens well. Doppler and Color Flow revealed mild aortic regurgitation. There is no significant aortic valvular stenosis. MITRAL VALVE The mitral valve is calcified but opens well. Mitral annular calcification is mild. There is no evidence of mitral valve prolapse. There is no mitral valve stenosis. Doppler and Color-flow revealed mild mitral regurgitation. TRICUSPID VALVE The tricuspid valve is normal in structure and function. Doppler and Color Flow revealed mild tricuspid regurgitation. The PA pressure was estimated at 50 mmHg. There is no tricuspid valve stenosis. PULMONIC VALVE The pulmonic valve is not well visualized. Doppler and Color Flow revealed mild pulmonic valvular regurgitation. There is no pulmonic valvular stenosis. GREAT VESSELS The aortic root is normal in size. The ascending aorta is normal in size. The IVC is dilated and collapses >50% with inspiration. PERICARDIAL EFFUSION There is no evidence of significant pericardial effusion. Critical Notification Critical Value: No <Conclusion> The Left Ventricle is borderline dilated. Left ventricle systolic function is moderate to severely impaired. The Ejection Fraction is estimated at 30%. There is global hypokinesis of the left ventricle. There is no significant aortic valvular stenosis. Doppler and Color Flow revealed mild aortic regurgitation. Doppler and Color-flow revealed mild mitral regurgitation. Doppler and Color Flow revealed mild tricuspid regurgitation. The PA pressure was estimated at 50 mmHg. Signed by : Edward Christy MD Electronically Approved : 09/06/2018 16:58:20 DICTATED and SIGNED BY: EDWARD CHRISTY MD DATE: 09/06/18 1658 MRI of the brain without contrast 09/27/2018 Clinical History: Weakness left greater than right, unsteady gait. Dysarthria for one day. Technique: Unenhanced T1-weighted sagittal and axial, T2-weighted axial and coronal and FLAIR, gradient echo and diffusion-weighted axial images of the brain were obtained. Findings: Comparison is made to the patient's CT scan of the head dated 09/26/2018. Images from the study are degraded by patient motion. There is generalized parenchymal atrophy. Patchy, confluent and multiple focal areas of increased signal intensity are seen within the periventricular and subcortical white matter of both cerebral hemispheres on the FLAIR and T2-weighted images consistent with areas of small vessel ischemic disease. An area encephalomalacia is seen involving the right superior parietal lobe. This measures 2.6 cm in size. Old areas of lacunar infarction are seen within the periventricular white matter of the right frontal lobe. These measure 5 mm to 1.2 cm in size. A somewhat oval-shaped area of restricted diffusion is seen involving the right aspect of the nicho near the midline which measures 1.7 cm in greatest diameter. This is consistent with an area of acute lacunar ischemia/infarction. There is no significant surrounding edema or associated mass effect. No additional acute parenchymal abnormality is seen. No extra-axial fluid collection is noted. Moderate to severe mucosal thickening is seen scattered throughout the paranasal sinuses. There are small bilateral mastoid effusions. Normal flow voids are seen within the major vascular structures surrounding the brain parenchyma. Impression: 1.7 cm area of acute lacunar ischemia/infarction is seen involving the right aspect of the nicho near the midline. There is no significant surrounding edema or associated mass effect. The patient's nurse was notified of this finding. Electronically signed by: Dimitris Raymond MD (09/27/2018 9:40 AM) [id number] Laboratory Tests Test 09/26/18 11:49 09/26/18 13:50 09/26/18 16:05 09/26/18 16:13 White Blood Count 7.5 x10^3/uL (4.0-11.0) Red Blood Count 4.48 x10^6/uL (4.30-5.70) Hemoglobin 13.5 g/dL (13.0-17.5) Hematocrit 41.8 % (39.0-53.0) Mean Corpuscular Volume 93 fL (79-100) Mean Corpuscular Hemoglobin 30 pg (25-35) Mean Corpuscular Hemoglobin Concent 32 g/dL (31-37) Red Cell Distribution Width 16.2 % (11.5-14.5) Platelet Count 324 x10^3/uL (140-400) Neutrophils (%) (Auto) 62 % (31-73) Lymphocytes (%) (Auto) 27 % (24-48) Monocytes (%) (Auto) 9 % (0-9) Eosinophils (%) (Auto) 2 % (0-3) Basophils (%) (Auto) 1 % (0-3) Neutrophils # (Auto) 4.6 x10^3uL (1.8-7.7) Lymphocytes # (Auto) 2.0 x10^3/uL (1.0-4.8) Monocytes # (Auto) 0.6 x10^3/uL (0.0-1.1) Eosinophils # (Auto) 0.1 x10^3/uL (0.0-0.7) Basophils # (Auto) 0.0 x10^3/uL (0.0-0.2) Prothrombin Time 18.1 SEC (11.7-14.0) Prothromb Time International Ratio 1.5 (0.8-1.1) Activated Partial Thromboplast Time 49 SEC (24-38) Sodium Level 136 mmol/L (136-145) Potassium Level 4.4 mmol/L (3.5-5.1) Chloride Level 99 mmol/L (98-107) Carbon Dioxide Level 24 mmol/L (21-32) Anion Gap 13 (6-14) Blood Urea Nitrogen 40 mg/dL (8-26) Creatinine 2.2 mg/dL (0.7-1.3) Estimated GFR (Cockcroft-Gault) 29.2 BUN/Creatinine Ratio 18 (6-20) Glucose Level 202 mg/dL (70-99) Lactic Acid Level 1.4 mmol/L (0.4-2.0) Calcium Level 10.0 mg/dL (8.5-10.1) Magnesium Level 2.1 mg/dL (1.8-2.4) Total Bilirubin 0.5 mg/dL (0.2-1.0) Aspartate Amino Transf (AST/SGOT) 18 U/L (15-37) Alanine Aminotransferase (ALT/SGPT) 19 U/L (16-63) Alkaline Phosphatase 94 U/L (46-116) Creatine Kinase 48 U/L (39-308) Creatine Kinase MB (Mass) 1.3 ng/mL (0.0-3.6) Creatine Kinase MB Relative Index % (0-4) Troponin I Quantitative 0.081 ng/mL (0.000-0.055) 0.081 ng/mL (0.000-0.055) Total Protein 8.0 g/dL (6.4-8.2) Albumin 3.8 g/dL (3.4-5.0) Albumin/Globulin Ratio 0.9 (1.0-1.7) Vitamin B12 Level 426 pg/mL (247-911) Urine Collection Type Unknown Urine Color Yellow Urine Clarity Clear Urine pH 6.5 Urine Specific [place] 1.010 Urine Protein Negative mg/dL (NEG-TRACE) Urine Glucose (UA) Negative mg/dL (NEG) Urine Ketones (Stick) Negative mg/dL (NEG) Urine Blood Negative (NEG) Urine Nitrite Negative (NEG) Urine Bilirubin Negative (NEG) Urine Urobilinogen Dipstick 0.2 mg/dL (0.2 mg/dL) Urine Leukocyte Esterase Negative (NEG) Urine RBC Occ /HPF (0-2) Urine WBC Occ /HPF (0-4) Urine Squamous Epithelial Cells Few /LPF Urine Bacteria 0 /HPF (0-FEW) Urine Hyaline Casts Moderate /HPF Urine Mucus Slight /LPF Glucose (Fingerstick) 95 mg/dL (70-99) Test 09/26/18 18:50 09/26/18 20:17 09/27/18 05:30 Troponin I Quantitative 0.078 ng/mL (0.000-0.055) Glucose (Fingerstick) 111 mg/dL (70-99) Sodium Level 138 mmol/L (136-145) Potassium Level 4.2 mmol/L (3.5-5.1) Chloride Level 102 mmol/L (98-107) Carbon Dioxide Level 24 mmol/L (21-32) Anion Gap 12 (6-14) Blood Urea Nitrogen 38 mg/dL (8-26) Creatinine 1.8 mg/dL (0.7-1.3) Estimated GFR (Cockcroft-Gault) 36.8 Glucose Level 110 mg/dL (70-99) Calcium Level 9.6 mg/dL (8.5-10.1) Triglycerides Level 150 mg/dL (0-150) Cholesterol Level 172 mg/dL (0-200) LDL Cholesterol, Calculated 119 mg/dL (0-100) VLDL Cholesterol, Calculated 30 mg/dL (0-40) Non-HDL Cholesterol Calculated 149 mg/dL (0-129) HDL Cholesterol 23 mg/dL (40-60) Cholesterol/HDL Ratio 7.5 Assessment and Plan Assessmemt and Plan Problems Medical Problems: (1) Elevated troponin Status: Acute Comment Review of Relevant I have reviewed the following items viviane (where applicable) has been applied. Labs Laboratory Tests Test 09/26/18 11:49 09/26/18 13:50 09/26/18 16:05 09/26/18 16:13 White Blood Count 7.5 x10^3/uL (4.0-11.0) Red Blood Count 4.48 x10^6/uL (4.30-5.70) Hemoglobin 13.5 g/dL (13.0-17.5) Hematocrit 41.8 % (39.0-53.0) Mean Corpuscular Volume 93 fL (79-100) Mean Corpuscular Hemoglobin 30 pg (25-35) Mean Corpuscular Hemoglobin Concent 32 g/dL (31-37) Red Cell Distribution Width 16.2 % (11.5-14.5) Platelet Count 324 x10^3/uL (140-400) Neutrophils (%) (Auto) 62 % (31-73) Lymphocytes (%) (Auto) 27 % (24-48) Monocytes (%) (Auto) 9 % (0-9) Eosinophils (%) (Auto) 2 % (0-3) Basophils (%) (Auto) 1 % (0-3) Neutrophils # (Auto) 4.6 x10^3uL (1.8-7.7) Lymphocytes # (Auto) 2.0 x10^3/uL (1.0-4.8) Monocytes # (Auto) 0.6 x10^3/uL (0.0-1.1) Eosinophils # (Auto) 0.1 x10^3/uL (0.0-0.7) Basophils # (Auto) 0.0 x10^3/uL (0.0-0.2) Prothrombin Time 18.1 SEC (11.7-14.0) Prothromb Time International Ratio 1.5 (0.8-1.1) Activated Partial Thromboplast Time 49 SEC (24-38) Sodium Level 136 mmol/L (136-145) Potassium Level 4.4 mmol/L (3.5-5.1) Chloride Level 99 mmol/L (98-107) Carbon Dioxide Level 24 mmol/L (21-32) Anion Gap 13 (6-14) Blood Urea Nitrogen 40 mg/dL (8-26) Creatinine 2.2 mg/dL (0.7-1.3) Estimated GFR (Cockcroft-Gault) 29.2 BUN/Creatinine Ratio 18 (6-20) Glucose Level 202 mg/dL (70-99) Lactic Acid Level 1.4 mmol/L (0.4-2.0) Calcium Level 10.0 mg/dL (8.5-10.1) Magnesium Level 2.1 mg/dL (1.8-2.4) Total Bilirubin 0.5 mg/dL (0.2-1.0) Aspartate Amino Transf (AST/SGOT) 18 U/L (15-37) Alanine Aminotransferase (ALT/SGPT) 19 U/L (16-63) Alkaline Phosphatase 94 U/L (46-116) Creatine Kinase 48 U/L (39-308) Creatine Kinase MB (Mass) 1.3 ng/mL (0.0-3.6) Creatine Kinase MB Relative Index % (0-4) Troponin I Quantitative 0.081 ng/mL (0.000-0.055) 0.081 ng/mL (0.000-0.055) Total Protein 8.0 g/dL (6.4-8.2) Albumin 3.8 g/dL (3.4-5.0) Albumin/Globulin Ratio 0.9 (1.0-1.7) Vitamin B12 Level 426 pg/mL (247-911) Urine Collection Type Unknown Urine Color Yellow Urine Clarity Clear Urine pH 6.5 Urine Specific [place] 1.010 Urine Protein Negative mg/dL (NEG-TRACE) Urine Glucose (UA) Negative mg/dL (NEG) Urine Ketones (Stick) Negative mg/dL (NEG) Urine Blood Negative (NEG) Urine Nitrite Negative (NEG) Urine Bilirubin Negative (NEG) Urine Urobilinogen Dipstick 0.2 mg/dL (0.2 mg/dL) Urine Leukocyte Esterase Negative (NEG) Urine RBC Occ /HPF (0-2) Urine WBC Occ /HPF (0-4) Urine Squamous Epithelial Cells Few /LPF Urine Bacteria 0 /HPF (0-FEW) Urine Hyaline Casts Moderate /HPF Urine Mucus Slight /LPF Glucose (Fingerstick) 95 mg/dL (70-99) Test 09/26/18 18:50 09/26/18 20:17 09/27/18 05:30 Troponin I Quantitative 0.078 ng/mL (0.000-0.055) Glucose (Fingerstick) 111 mg/dL (70-99) Sodium Level 138 mmol/L (136-145) Potassium Level 4.2 mmol/L (3.5-5.1) Chloride Level 102 mmol/L (98-107) Carbon Dioxide Level 24 mmol/L (21-32) Anion Gap 12 (6-14) Blood Urea Nitrogen 38 mg/dL (8-26) Creatinine 1.8 mg/dL (0.7-1.3) Estimated GFR (Cockcroft-Gault) 36.8 Glucose Level 110 mg/dL (70-99) Calcium Level 9.6 mg/dL (8.5-10.1) Triglycerides Level 150 mg/dL (0-150) Cholesterol Level 172 mg/dL (0-200) LDL Cholesterol, Calculated 119 mg/dL (0-100) VLDL Cholesterol, Calculated 30 mg/dL (0-40) Non-HDL Cholesterol Calculated 149 mg/dL (0-129) HDL Cholesterol 23 mg/dL (40-60) Cholesterol/HDL Ratio 7.5 Laboratory Tests Test 09/26/18 11:49 09/26/18 13:50 09/26/18 16:05 09/26/18 16:13 White Blood Count 7.5 x10^3/uL (4.0-11.0) Red Blood Count 4.48 x10^6/uL (4.30-5.70) Hemoglobin 13.5 g/dL (13.0-17.5) Hematocrit 41.8 % (39.0-53.0) Mean Corpuscular Volume 93 fL (79-100) Mean Corpuscular Hemoglobin 30 pg (25-35) Mean Corpuscular Hemoglobin Concent 32 g/dL (31-37) Red Cell Distribution Width 16.2 % (11.5-14.5) Platelet Count 324 x10^3/uL (140-400) Neutrophils (%) (Auto) 62 % (31-73) Lymphocytes (%) (Auto) 27 % (24-48) Monocytes (%) (Auto) 9 % (0-9) Eosinophils (%) (Auto) 2 % (0-3) Basophils (%) (Auto) 1 % (0-3) Neutrophils # (Auto) 4.6 x10^3uL (1.8-7.7) Lymphocytes # (Auto) 2.0 x10^3/uL (1.0-4.8) Monocytes # (Auto) 0.6 x10^3/uL (0.0-1.1) Eosinophils # (Auto) 0.1 x10^3/uL (0.0-0.7) Basophils # (Auto) 0.0 x10^3/uL (0.0-0.2) Prothrombin Time 18.1 SEC (11.7-14.0) Prothromb Time International Ratio 1.5 (0.8-1.1) Activated Partial Thromboplast Time 49 SEC (24-38) Sodium Level 136 mmol/L (136-145) Potassium Level 4.4 mmol/L (3.5-5.1) Chloride Level 99 mmol/L (98-107) Carbon Dioxide Level 24 mmol/L (21-32) Anion Gap 13 (6-14) Blood Urea Nitrogen 40 mg/dL (8-26) Creatinine 2.2 mg/dL (0.7-1.3) Estimated GFR (Cockcroft-Gault) 29.2 BUN/Creatinine Ratio 18 (6-20) Glucose Level 202 mg/dL (70-99) Lactic Acid Level 1.4 mmol/L (0.4-2.0) Calcium Level 10.0 mg/dL (8.5-10.1) Magnesium Level 2.1 mg/dL (1.8-2.4) Total Bilirubin 0.5 mg/dL (0.2-1.0) Aspartate Amino Transf (AST/SGOT) 18 U/L (15-37) Alanine Aminotransferase (ALT/SGPT) 19 U/L (16-63) Alkaline Phosphatase 94 U/L (46-116) Creatine Kinase 48 U/L (39-308) Creatine Kinase MB (Mass) 1.3 ng/mL (0.0-3.6) Creatine Kinase MB Relative Index % (0-4) Troponin I Quantitative 0.081 ng/mL (0.000-0.055) 0.081 ng/mL (0.000-0.055) Total Protein 8.0 g/dL (6.4-8.2) Albumin 3.8 g/dL (3.4-5.0) Albumin/Globulin Ratio 0.9 (1.0-1.7) Vitamin B12 Level 426 pg/mL (247-911) Urine Collection Type Unknown Urine Color Yellow Urine Clarity Clear Urine pH 6.5 Urine Specific [place] 1.010 Urine Protein Negative mg/dL (NEG-TRACE) Urine Glucose (UA) Negative mg/dL (NEG) Urine Ketones (Stick) Negative mg/dL (NEG) Urine Blood Negative (NEG) Urine Nitrite Negative (NEG) Urine Bilirubin Negative (NEG) Urine Urobilinogen Dipstick 0.2 mg/dL (0.2 mg/dL) Urine Leukocyte Esterase Negative (NEG) Urine RBC Occ /HPF (0-2) Urine WBC Occ /HPF (0-4) Urine Squamous Epithelial Cells Few /LPF Urine Bacteria 0 /HPF (0-FEW) Urine Hyaline Casts Moderate /HPF Urine Mucus Slight /LPF Glucose (Fingerstick) 95 mg/dL (70-99) Test 09/26/18 18:50 09/26/18 20:17 09/27/18 05:30 Troponin I Quantitative 0.078 ng/mL (0.000-0.055) Glucose (Fingerstick) 111 mg/dL (70-99) Sodium Level 138 mmol/L (136-145) Potassium Level 4.2 mmol/L (3.5-5.1) Chloride Level 102 mmol/L (98-107) Carbon Dioxide Level 24 mmol/L (21-32) Anion Gap 12 (6-14) Blood Urea Nitrogen 38 mg/dL (8-26) Creatinine 1.8 mg/dL (0.7-1.3) Estimated GFR (Cockcroft-Gault) 36.8 Glucose Level 110 mg/dL (70-99) Calcium Level 9.6 mg/dL (8.5-10.1) Triglycerides Level 150 mg/dL (0-150) Cholesterol Level 172 mg/dL (0-200) LDL Cholesterol, Calculated 119 mg/dL (0-100) VLDL Cholesterol, Calculated 30 mg/dL (0-40) Non-HDL Cholesterol Calculated 149 mg/dL (0-129) HDL Cholesterol 23 mg/dL (40-60) Cholesterol/HDL Ratio 7.5 Medications Current Medications Sodium Chloride 1,000 ml @ 1,000 mls/hr 1X ONCE IV Last administered on at 12:21; Start 09/26/18 at 11:45; Stop 09/26/18 at 12:44; Status DC Aspirin (Kodak Aspirin) 325 mg 1X ONCE PO Last administered on 09/26/18at 13:04 ; Start 09/26/18 at 12:30; Stop 09/26/18 at 12:31; Status DC Ondansetron HCl (Zofran) 4 mg PRN Q8HRS PRN IV NAUSEA/VOMITING; Start 09/26/18 at 12:45; Stop 09/26/18 at 13:05; Status DC Insulin Human Lispro (HumaLOG) 0-5 UNITS TIDWMEALS SQ ; Start 09/26/18 at 17:00; Status Cancel Dextrose (Dextrose 50%-Water Syringe) 12.5 gm PRN Q15MIN PRN IV SEE COMMENTS; Start 09/26/18 at 12:45 Ondansetron HCl (Zofran) 4 mg PRN Q6HRS PRN IV NAUSEA/VOMITING; Start 09/26/18 at 13:15 Acetaminophen (Tylenol) 500 mg PRN Q6HRS PRN PO MILD PAIN / TEMP; Start at 13:15 Insulin Human Lispro (HumaLOG) 0-9 UNITS TIDWMEALS SQ ; Start 09/26/18 at 17:00 Dextrose (Dextrose 50%-Water Syringe) 12.5 gm PRN Q15MIN PRN IV SEE COMMENTS; Start 09/26/18 at 13:15 Hydralazine HCl (Apresoline Inj) 10 mg PRN Q4HRS PRN IVP ELEVATED BP, SEE COMMENTS Last administered on 09/26/18at 23:41; Start 09/26/18 at 13:15 Allopurinol (Zyloprim) 200 mg DAILY PO Last administered on 09/27/18at 09:16; Start 09/26/18 at 15:00 Amlodipine Besylate (Norvasc) 5 mg DAILY PO Last administered on 09/27/18at 09: 17; Start 09/26/18 at 15:00 Aspirin (Ecotrin) 81 mg DAILY PO ; Start 09/27/18 at 09:00; Stop 09/27/18 at 09: 00; Status DC Clopidogrel Bisulfate (Plavix) 75 mg DAILY PO Last administered on 09/27/18at 09 :16; Start 09/26/18 at 15:00 EZETIMIBE (Zetia) 10 mg DAILY PO Last administered on 09/27/18at 09:17; Start at 15:00 Gemfibrozil (Lopid) 600 mg DAILY PO Last administered on 09/27/18at 09:17; Start 09/26/18 at 15:00 Acetaminophen/ Hydrocodone Bitart (Lortab 10/325) 1 tab PRN Q6HRS PRN PO MODERATE-SEVERE PAIN; Start 09/26/18 at 13:15 Metoprolol Succinate (Toprol Xl) 100 mg DAILY PO Last administered on 09:16; Start 09/26/18 at 15:00 Tamsulosin HCl (Flomax) 0.4 mg HS PO Last administered on 09/26/18at 21:13; Start 09/26/18 at 21:00 Ascorbic Acid (Vitamin C) 1,000 mg DAILY PO Last administered on 09/27/18 09: 17; Start 09/26/18 at 15:00 Pantoprazole Sodium (Protonix) 40 mg DAILYAC PO Last administered on 09/27/18 09:17; Start 09/26/18 at 15:00 Losartan Potassium (Cozaar) 100 mg DAILY PO Last administered on 09/27/18 09: 18; Start 09/26/18 at 15:00 Multivitamins (Thera M Plus) 1 tab DAILY PO Last administered on 09/27/18 09: 16; Start 09/26/18 at 15:00 Propafenone HCl (Rythmol) 225 mg BID PO Last administered on 09/27/18 09:27; Start 09/26/18 at 21:00 Non-Formulary Medication (Testosterone Cypionate ) 1 ml [id number] IM ; Start at 13:15; Status UNV Non-Formulary Medication (Ubidecarenone (Co Q-10)) 200 mg DAILY PO ; Start 09/27 at 09:00; Status UNV Apixaban (Eliquis) 5 mg BID PO Last administered on 09/27/18 09:17; Start 09/26 at 15:00 Info (Anti-Coagulation Monitoring By Pharmacy) 1 each PRN DAILY PRN MC SEE COMMENTS; Start 09/26/18 at 14:15 Active Scripts Active Reported Toprol Xl (Metoprolol Succinate) 50 Mg Tab.er.24h 100 Mg PO DAILY Flomax (Tamsulosin Hcl) 0.4 Mg Cap.er.24h 1 Cap PO HS Cephalexin 500 Mg Capsule 1 Cap PO TID Allopurinol 100 Mg Tablet 2 Tab PO DAILY Amlodipine Besylate 5 Mg Tablet 5 Mg PO DAILY Testosterone Cypionate 200 Mg/1 Ml Vial 1 Ml IM [id number] Hydrocodone-Apap 10-325 (Hydrocodone Bit/Acetaminophen) 1 Each Tablet 1 Tab PO PRN Q6HRS PRN Clopidogrel (Clopidogrel Bisulfate) 75 Mg Tablet 1 Tab PO DAILY Vitamin C (Ascorbic Acid) 1,000 Mg Tablet 1,000 Mg PO DAILY Vitamin E (Vitamin E Mixed) 400 Unit Capsule 400 Unit PO Aspir 81 (Aspirin) 81 Mg Tablet.dr Basurto Tab PO DAILY Co Q-10 (Ubidecarenone) 200 Mg Capsule 200 Mg PO DAILY Krill Oil 500 Mg Capsule 500 Mg PO Multi-Vitamin Daily (Multivitamin) 1 Each Tablet 1 Each PO DAILY Propafenone Hcl 150 Mg Tablet 225 Mg PO BID Gemfibrozil 600 Mg Tablet 1 Tab PO DAILY Zetia (Ezetimibe) 10 Mg Tablet 1 Tab PO DAILY Losartan Potassium 100 Mg Tablet 100 Mg PO DAILY Nexium Capsule (Esomeprazole Magnesium) 40 Mg Capsule. 1 Cap PO DAILY Vitals/I & O Vital Sign - Last 24 Hours 09/26/18 09/26/18 09/26/18 09/26/18 11:38 11:53 12:00 12:15 Temp 97.4 97.4 Pulse 60 60 60 58 Resp 18 16 18 18 B/P (MAP) 165/70 (101) 151/69 (96) 139/63 (88) 137/66 (89) Pulse Ox 99 98 97 97 O2 Delivery Room Air Room Air 09/26/18 09/26/18 09/26/18 09/26/18 12:30 12:45 13:00 13:15 Pulse 60 58 58 58 Resp 20 20 16 16 B/P (MAP) 127/62 (83) 149/67 (94) 146/68 (94) 148/72 (97) Pulse Ox 96 97 97 98 O2 Delivery Room Air Room Air 09/26/18 09/26/18 09/26/18 09/26/18 13:30 13:45 14:00 14:15 Pulse 58 58 60 60 Resp 16 16 20 20 B/P (MAP) 166/77 (106) 162/77 (105) 176/70 (105) 160/80 (106) Pulse Ox 98 98 100 99 09/26/18 09/26/18 09/26/18 09/26/18 14:30 14:45 15:10 17:26 Temp 98.1 98.1 Pulse 60 60 61 Resp 20 20 17 B/P (MAP) 169/75 (106) 156/73 (100) 148/88 (108) Pulse Ox 97 98 98 O2 Delivery Room Air Room Air Room Air Room Air 09/26/18 09/26/18 09/26/18 09/26/18 19:36 20:00 21:13 23:16 Temp 97.8 97.9 97.8 97.9 Pulse 59 59 60 Resp 16 18 B/P (MAP) 154/67 (96) 154/67 170/68 (102) Pulse Ox 94 97 O2 Delivery Room Air Room Air Room Air 09/26/18 09/27/18 09/27/18 09/27/18 23:41 03:30 07:00 09:16 Temp 98.2 98.1 98.2 98.1 Pulse 60 83 63 63 Resp 18 16 B/P (MAP) 170/68 126/60 (82) 119/81 (94) 119/81 Pulse Ox 98 95 O2 Delivery Room Air Room Air 09/27/18 09/27/18 09/27/18 09:17 09:18 09:27 Pulse 63 63 63 B/P (MAP) 119/81 119/81 119/81 Intake and Output 09/26/18 09/26/18 09/27/18 15:00 23:00 07:00 Intake Total 560 ml 110 ml Output Total 750 ml Balance 560 ml -640 ml KAREN REYES MD Sep 27, 2018 10:48
[2018-09-27] MEDS ORDERED: BARIUM SULFATE 40% (APPLE) 148 GM PWD. PO ONE (12:00)
--- NOTE | 2018-09-27 12:03 | PDOC2 ---
GEM MULLEN CUSTOMS DIRECTOR 09/27/18 1203: CARDIAC CONSULT DATE OF CONSULT Date of Consult DATE: 09/27/18 TIME: 11:48 REASON FOR CONSULT Reason for Consult: New CVA on Eliquis REFERRING PHYSICIAN Referring Physician: Dr. Sheffield SOURCE Source: Chart review, Patient HISTORY OF PRESENT ILLNESS HISTORY OF PRESENT ILLNESS This is a 78 yo male, known to our service from recent hospitalization for acute on chronic systolic heart failure and AFIB/flutter. Was started on Eliquis at that time for stroke prevention. Returns with complaints of bilateral LE weakness and slurred speech. Patient reports feeling well Tuesday. Did routine errands with during the day. That night, had acute onset of LE weakness. Daughter noticed speech was slightly altered over the phone, but attributed this to being worn out and dosing off follow active day. The following morning, speech was significantly worse. Was unable to walk without hold onto things so he came to the ED for further evaluation and treatment. Reports compliance with medications including Eliquis and Plavix. PAST MEDICAL HISTORY Past Medical History Cardiovascular: CAD, HTN, Hyperlipidemia, Valve insufficiency, Other (PAD), CHF , AFIB GI: Constipation, GERD Hepatobiliary: No pertinent hx Psych: No pertinent hx Musculoskeletal: Osteoarthritis Rheumatologic: Gout Infectious disease: No pertinent hx ENT: Other (sinusitis) Endocrine: Diabetes Renal/: Chronic renal insuff, Benign prostatic enlarg. PAST SURGICAL HISTORY Past Surgical History Arthroscopy (right), CABG (x2 in 2010), Total hip replacement (left), Other ( BRICK YARD HAND right popliteal; LSFA stent; neck fusion; recent LLE percutaneous BR[place]ARD HAND per Dr. Maurer at [facility]) FAMILY HISTORY Family History: Heart Disease SOCIAL HISTORY Social History Smoke: Quit (remotely) ALCOHOL: none Drugs: None Lives: with Family CURRENT MEDICATIONS CURRENT MEDICATIONS Current Medications Medications (Trade) Dose Ordered Sig/Cha Route PRN Reason Start Time Stop Time Status Last Admin Dose Admin Aspirin (Kodak Aspirin) 325 mg 1X ONCE PO 09/26/18 12:30 09/26/18 12:31 DC 09/26/18 13:04 Hydralazine HCl (Apresoline Inj) 10 mg PRN Q4HRS PRN IVP ELEVATED BP, SEE COMMENTS 09/26/18 13:15 09/26/18 23:41 Allopurinol (Zyloprim) 200 mg DAILY PO 09/26/18 15:00 09/27/18 09:16 Amlodipine Besylate (Norvasc) 5 mg DAILY PO 09/26/18 15:00 09/27/18 09:17 Clopidogrel Bisulfate (Plavix) 75 mg DAILY PO 09/26/18 15:00 09/27/18 09:16 EZETIMIBE (Zetia) 10 mg DAILY PO 09/26/18 15:00 09/27/18 09:17 Gemfibrozil (Lopid) 600 mg DAILY PO 09/26/18 15:00 09/27/18 09:17 Metoprolol Succinate (Toprol Xl) 100 mg DAILY PO 09/26/18 15:00 09/27/18 09:16 Tamsulosin HCl (Flomax) 0.4 mg HS PO 09/26/18 21:00 09/26/18 21:13 Ascorbic Acid (Vitamin C) 1,000 mg DAILY PO 09/26/18 15:00 09/27/18 09:17 Pantoprazole Sodium (Protonix) 40 mg DAILYAC PO 09/26/18 15:00 09/27/18 09:17 Losartan Potassium (Cozaar) 100 mg DAILY PO 09/26/18 15:00 09/27/18 09:18 Multivitamins (Thera M Plus) 1 tab DAILY PO 09/26/18 15:00 09/27/18 09:16 Propafenone HCl (Rythmol) 225 mg BID PO 09/26/18 21:00 09/27/18 09:27 Apixaban (Eliquis) 5 mg BID PO 09/26/18 15:00 09/27/18 09:17 ALLERGIES ALLERGIES: Coded Allergies: Penicillins (Verified Allergy, Intermediate, rash, 09/06/18) amiodarone (Verified Allergy, Intermediate, 12/23/16) ROS Review of System 14 point ROS conducted with pertinent positives noted above in HPI PHYSICAL EXAM PHYSICAL EXAM General: Alert, Oriented X3, Cooperative, No acute distress HEENT: Atraumatic, Mucous membr. moist/pink Lungs: CTA Heart: Regular rate, Other (3/6 systolic murmur to LLS border) Abdomen: Soft, No tenderness Extremities: No cyanosis, Other (trace LLE edema) Skin: Other (Left foot healing ulcer) Neuro: mild dysarthria, Sensation intact Psych/Mental Status: Mental status NL, Mood NL MUSCULOSKELETAL: Osteoarthritic changes both hands, LE weakness VITALS VITALS Vital Signs Date Time Temp Pulse Resp B/P (MAP) Pulse Ox O2 Delivery O2 Flow Rate FiO2 09/27/18 11:00 97.7 74 18 126/65 (85) 94 Room Air 97.7 LABS Lab: Laboratory Tests Test 09/26/18 11:49 09/26/18 13:50 09/26/18 16:05 09/26/18 16:13 White Blood Count 7.5 x10^3/uL (4.0-11.0) Red Blood Count 4.48 x10^6/uL (4.30-5.70) Hemoglobin 13.5 g/dL (13.0-17.5) Hematocrit 41.8 % (39.0-53.0) Mean Corpuscular Volume 93 fL (79-100) Mean Corpuscular Hemoglobin 30 pg (25-35) Mean Corpuscular Hemoglobin Concent 32 g/dL (31-37) Red Cell Distribution Width 16.2 % (11.5-14.5) Platelet Count 324 x10^3/uL (140-400) Neutrophils (%) (Auto) 62 % (31-73) Lymphocytes (%) (Auto) 27 % (24-48) Monocytes (%) (Auto) 9 % (0-9) Eosinophils (%) (Auto) 2 % (0-3) Basophils (%) (Auto) 1 % (0-3) Neutrophils # (Auto) 4.6 x10^3uL (1.8-7.7) Lymphocytes # (Auto) 2.0 x10^3/uL (1.0-4.8) Monocytes # (Auto) 0.6 x10^3/uL (0.0-1.1) Eosinophils # (Auto) 0.1 x10^3/uL (0.0-0.7) Basophils # (Auto) 0.0 x10^3/uL (0.0-0.2) Prothrombin Time 18.1 SEC (11.7-14.0) Prothromb Time International Ratio 1.5 (0.8-1.1) Activated Partial Thromboplast Time 49 SEC (24-38) Sodium Level 136 mmol/L (136-145) Potassium Level 4.4 mmol/L (3.5-5.1) Chloride Level 99 mmol/L (98-107) Carbon Dioxide Level 24 mmol/L (21-32) Anion Gap 13 (6-14) Blood Urea Nitrogen 40 mg/dL (8-26) Creatinine 2.2 mg/dL (0.7-1.3) Estimated GFR (Cockcroft-Gault) 29.2 BUN/Creatinine Ratio 18 (6-20) Glucose Level 202 mg/dL (70-99) Lactic Acid Level 1.4 mmol/L (0.4-2.0) Calcium Level 10.0 mg/dL (8.5-10.1) Magnesium Level 2.1 mg/dL (1.8-2.4) Total Bilirubin 0.5 mg/dL (0.2-1.0) Aspartate Amino Transf (AST/SGOT) 18 U/L (15-37) Alanine Aminotransferase (ALT/SGPT) 19 U/L (16-63) Alkaline Phosphatase 94 U/L (46-116) Creatine Kinase 48 U/L (39-308) Creatine Kinase MB (Mass) 1.3 ng/mL (0.0-3.6) Creatine Kinase MB Relative Index % (0-4) Troponin I Quantitative 0.081 ng/mL (0.000-0.055) 0.081 ng/mL (0.000-0.055) Total Protein 8.0 g/dL (6.4-8.2) Albumin 3.8 g/dL (3.4-5.0) Albumin/Globulin Ratio 0.9 (1.0-1.7) Vitamin B12 Level 426 pg/mL (247-911) Urine Collection Type Unknown Urine Color Yellow Urine Clarity Clear Urine pH 6.5 Urine Specific [place] 1.010 Urine Protein Negative mg/dL (NEG-TRACE) Urine Glucose (UA) Negative mg/dL (NEG) Urine Ketones (Stick) Negative mg/dL (NEG) Urine Blood Negative (NEG) Urine Nitrite Negative (NEG) Urine Bilirubin Negative (NEG) Urine Urobilinogen Dipstick 0.2 mg/dL (0.2 mg/dL) Urine Leukocyte Esterase Negative (NEG) Urine RBC Occ /HPF (0-2) Urine WBC Occ /HPF (0-4) Urine Squamous Epithelial Cells Few /LPF Urine Bacteria 0 /HPF (0-FEW) Urine Hyaline Casts Moderate /HPF Urine Mucus Slight /LPF Glucose (Fingerstick) 95 mg/dL (70-99) Test 09/26/18 18:50 09/26/18 20:17 09/27/18 05:30 Troponin I Quantitative 0.078 ng/mL (0.000-0.055) Glucose (Fingerstick) 111 mg/dL (70-99) Sodium Level 138 mmol/L (136-145) Potassium Level 4.2 mmol/L (3.5-5.1) Chloride Level 102 mmol/L (98-107) Carbon Dioxide Level 24 mmol/L (21-32) Anion Gap 12 (6-14) Blood Urea Nitrogen 38 mg/dL (8-26) Creatinine 1.8 mg/dL (0.7-1.3) Estimated GFR (Cockcroft-Gault) 36.8 Glucose Level 110 mg/dL (70-99) Calcium Level 9.6 mg/dL (8.5-10.1) Triglycerides Level 150 mg/dL (0-150) Cholesterol Level 172 mg/dL (0-200) LDL Cholesterol, Calculated 119 mg/dL (0-100) VLDL Cholesterol, Calculated 30 mg/dL (0-40) Non-HDL Cholesterol Calculated 149 mg/dL (0-129) HDL Cholesterol 23 mg/dL (40-60) Cholesterol/HDL Ratio 7.5 ECHOCARDIOGRAM ECHOCARDIOGRAM <Conclusion> The Left Ventricle is borderline dilated. Left ventricle systolic function is moderate to severely impaired. The Ejection Fraction is estimated at 30%. There is global hypokinesis of the left ventricle. There is no significant aortic valvular stenosis. Doppler and Color Flow revealed mild aortic regurgitation. Doppler and Color-flow revealed mild mitral regurgitation. Doppler and Color Flow revealed mild tricuspid regurgitation. The PA pressure was estimated at 50 mmHg. DATE: 09/06/18 1658 STRESS TEST STRESS TEST Conclusion 1. No evidence of stress induced EKG changes 2. Large inferior and lateral fixed defect. 3. Mild LV dysfunction. Ejection fraction 45%. 4. Moderate risk for future cardiovascular events. DATE: 09/07/18 1445 ASSESSMENT/PLAN ASSESSMENT/PLAN 1. Weakness, dysarthria 2. Acute lacunar infarct; neuro following 3. Carotid artery disease; carotid US with concern for right ICA complete occlusion. 4. PAFIB; remains in AFIB with controlled rate. Eliquis for stroke prevention started last month. 5. Chronic systolic/diastolic CHF; appears compensated 6. ICM; LVEF30% per echo 7. Mild troponin elevation; peak 0.081. Most probably type II, demand ischemia 8. CAD: CABGx2 in 2010. Recent MPI with large fixed defect as noted above. 9. DANNA on CKD 10. Hypertension; controlled 11. Hyperlipidemia; LDL 119 12. Diabetes, II 13. PAD with healing left foot ulcer: s/p percutaneous revascularization 2017. 14. Pulmonary HTN; PAP 50 mmHg Recommendations Continue Plavix Eliquis on hold with pending angiogram in am Metoprolol for rate control D/c Rythmol; this was discontinued last admission. Med list needs to be updated ; d/w RN Secondary prevention Follow vascular recommendations for carotid disease Re-evaluate LVEF with outpatient echo as scheduled next month. Consider AICD if LV systolic function remains low. RONALDO DANIEL MD 09/27/182039: CARDIAC CONSULT ASSESSMENT/PLAN ASSESSMENT/PLAN Pt. seen and examined. Agree with above RESEARCH MICROBIOLOGIST note. Do not have high suspicion that this is related to any embolic cardiac source as he was on eliquis and plavix. Stroke also in VB system and he may have other atherosclerotic small vessel disease. 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 Thanks. Continue anticoagulation and plavix after w/u, interventions complete. Could consider DEBBIE if no clear cerebrovascular source. GEM MULLEN APRN Sep 27, 2018 12:03 RONALDO DANIEL MD Sep 27, 2018 20:40
--- NOTE | 2018-09-27 13:51 | RAD ---
Examination: DOPPLER CAROTID BILAT History: cva Comparison/Correlation: None available at this time Technique: Duplex sonography of the cervical portion of both carotid arteries was performed. Real-time grayscale, color flow Doppler, and Doppler spectral waveform analysis is performed. Findings: Right side: Peak systolic flow velocity of the CCA is 118 cm/sec. Flow is not identified within the right internal carotid artery. The peak systolic velocity of the ECA is 168 cm/sec. Intimal thickening and plaque noted involving the right common carotid artery. Calcific plaque at the carotid bulb noted. Left side: Peak systolic flow velocity of the CCA is 118 cm/sec. Peak systolic flow velocity of the ICA is 164 cm/sec. The ICA/CCA ratio is 1.4. Peak end diastolic flow velocity of the ICA is 45 cm/sec. Peak systolic flow velocity of the ECA is 201 cm/sec. Moderate quantity of involving the left common carotid, internal carotid, and origin of the external carotid artery is evident. Vertebral arteries: Bilateral vertebral arteries demonstrate antegrade flow. IMPRESSION: Absence of flow involving the right internal carotid artery of concern for complete occlusion. Extensive plaque bilaterally is noted involving the common carotid arteries greater on the right. Plaque noted in external carotid arteries and the left internal carotid artery. Elevated peak systolic velocity of the internal carotid artery corresponding to 50-69 percent stenosis is identified. PQRS Compliance Statement - Stenosis calculations for CT, MR and conventional angiography are based upon measurement of the distal ICA diameter in accordance with the NASCET methodology. Stenosis calculations for carotid ultrasound studies are derived from validated velocity criteria which are known to correlate with the NASCET methodology. Electronically signed by: Kevan Amador MD (09/27/2018 1:48 PM) [facility]
--- NOTE | 2018-09-27 14:00 | NUR ---
Wound Care Pt seen for wound care consult re: a left lateral foot wound. Per pt's , pt was revascularized in April and Dr. Shepard opened the "knot" on his foot afterwards. Per pt's , a large amount of serous gelatinous material was drained and they were thinking it was possibly a gangelion cyst. Wound is small, dry and slough covered, scant amount of serous drainage, wound cleaned and redressed with Xeroform gauze and a telfa, change every 2-3 days. Pt to f/u at [facility] after discharge. No other wounds noted on full skin inspection.
--- NOTE | 2018-09-27 14:04 | CONS ---
DATE OF CONSULTATION: PULMONARY CONSULTATION ATTENDING PHYSICIAN: Kate Liu MD. REASON FOR CONSULTATION: Pulmonary hypertension. HISTORY OF PRESENT ILLNESS: The patient is a 78-year-old male who presented to the hospital with symptoms suggesting of stroke. He had slurring of speech and dysarthria. He underwent MRI and was found to have acute lacunar infarction. The patient had an echocardiogram done in August and it showed an EF of 30% and evidence of pulmonary hypertension. His PA pressures were 50. He has a history of tobacco use, probably for 20 years, but he quit 30 years ago. He has an occasional shortness of breath with exertion. He has no history of deep vein thrombosis or pulmonary embolism. He has minimal asbestos exposure for a year or so. He is not on home oxygen. The patient states that since the last admission, he has some daytime somnolence. He never had any formal sleep study. The patient's room air saturations were 96%. His chest x-ray did not reveal any acute infiltrates. PAST MEDICAL HISTORY: Significant for, 1. History of CAD, status post CABG. 2. History of cardiomyopathy with an EF of 30% based on echo from 09/06/2018. 3. Hypertension. 4. Paroxysmal atrial fibrillation, on chronic anticoagulation. 5. History of renal insufficiency. 6. History of secondary pulmonary hypertension. PAST SURGICAL HISTORY: No recent surgeries. ALLERGIES: PENICILLIN AND AMIODARONE. MEDICATIONS: All reviewed as listed in the MRAD. REVIEW OF SYSTEMS: Twelve-point system obtained. Pertinent positives discussed in my history of present illness, otherwise noncontributory. All systems that were negative were reviewed as well. SOCIAL HISTORY: Smoked for about 20 years or less and quit 30 years ago. He has some minimal asbestos exposure, which is probably for 6 months. PHYSICAL EXAMINATION: VITAL SIGNS: Stable, pulse ox is 94% on room air. HEENT: Sclerae nonicteric. NECK: Supple. LUNGS: With diminished breath sounds with no crackles or wheezes. CARDIOVASCULAR: Regular rate and rhythm. ABDOMEN: Soft. EXTREMITIES: With trace pitting edema. NEUROLOGIC: The patient had some right-sided facial droop and was a bit dysarthric upon vocalization. DIAGNOSTIC DATA: Chest x-ray does not reveal any acute infiltrates. No obvious CHF. LABORATORY DATA: Reviewed. White cell count 7.5, hemoglobin 13.5. BUN 30 and creatinine 1.8. IMPRESSION: 1. Acute onset of slurred speech and dysarthria compatible with acute lacunar cerebrovascular accident. 2. Moderate pulmonary hypertension based on the recent echo from August. Ejection fraction was 30%, and pulmonary artery pressure was 50. This is likely secondary pulmonary hypertension related to left ventricular dysfunction. No significant chronic obstructive pulmonary disease by history. No history of chronic thromboembolic disease. The patient does have symptoms suggestive of sleep apnea and would benefit from outpatient sleep study. 3. History of coronary artery disease, status post coronary artery bypass graft. 4. Cardiomyopathy, which is ischemic with an ejection fraction of 30%. 5. Paroxysmal atrial fibrillation. 6. Very minimal asbestos exposure. Radiographically, I do not see any significant interstitial lung disease. RECOMMENDATIONS: 1. Follow Neurology recommendations. 2. From a pulmonary standpoint, I would do an outpatient sleep study to rule out underlying sleep apnea, which may become more obvious during the initial weeks of stroke. 3. Weight loss is advised. 4. No need for any further workup for pulmonary hypertension as it is secondary to his cardiomyopathy. 5. Bronchodilators p.r.n. 6. 6-minute walk test at the time of discharge. 7. Follow Cardiology recommendation. 8. Eliquis for atrial fibrillation per Cardiology. 9. Discussed with family. We will follow along with you. LETA SCHREIBER MD DR: ALVA/natasha JOB#: [id number] / [id number]
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
--- NOTE | 2018-09-27 15:28 | PDOC ---
Provider Note Provider Note Vascular surgery consult note dictated by Dr. Perez. Right ICA stenosis/complete occlusion via US. MRI area of acute lacunar infarct in right region near nicho. Pt with CKD III, therefore contrast load with CTA not ideal. Will get conventional angiography to confirm right carotid occlusion and mild- moderate left carotid stenosis. Hold Eliquis tonight. Please see full dictation. TOMMIE POSADA Sep 27, 2018 15:28
[2018-09-27] MEDS: IV NORMAL SALINE 1000ML BAG 1,000 ML IV SCH (16:30)
--- NOTE | 2018-09-27 17:14 | PDOC2 ---
CONSULT Date of Consult Date of Consult DATE: 09/27/18 TIME: 17:11 Reason for Consult Reason for Consult: CKD Source Source: Chart review, Patient History of Present Illness Reason for Visit: Pt is 78 yo CM , recent hospitalization for acute on chronic systolic heart failure and AFIB/flutter. He was started on Eliquis at that time for stroke prevention. He is hospitalized with complaints of bilateral LE weakness and slurred speech. Patient reports feeling well Tuesday. Did routine errands with during the day but at night , had acute onset of LE weakness. Daughter noticed speech was slightly altered over the phone . The following morning, speech was significantly worse. Was unable to walk without hold onto things so he came to the ED for further evaluation and treatment. Reports compliance with medications including Eliquis and Plavix. He has CKD stage [address] Stewart. States feeling better . Denies any CP, SOB. No N/V/D. No urinary complaints. No NSAID use Past Medical History Cardiovascular: CAD, HTN, Hyperlipidemia, Valve insufficiency, Other GI: Constipation, GERD Hepatobiliary: No pertinent hx Psych: No pertinent hx Musculoskeletal: Osteoarthritis Rheumatologic: Gout Infectious disease: No pertinent hx Renal/: Chronic renal insuff, Benign prostatic enlarg. Past Surgical History Past Surgical History: Arthroscopy, CABG, Total hip replacement, Other Family History Family History: Heart Disease Social History No ALCOHOL: none Drugs: None Lives: with Family Current Problem List Problem List Problems Medical Problems: (1) Elevated troponin Status: Acute Current Medications Current Medications Current Medications Sodium Chloride 1,000 ml @ 1,000 mls/hr 1X ONCE IV Last administered on at 12:21; Start 09/26/18 at 11:45; Stop 09/26/18 at 12:44; Status DC Aspirin (Kodak Aspirin) 325 mg 1X ONCE PO Last administered on 09/26/18at 13:04 ; Start 09/26/18 at 12:30; Stop 09/26/18 at 12:31; Status DC Ondansetron HCl (Zofran) 4 mg PRN Q8HRS PRN IV NAUSEA/VOMITING; Start 09/26/18 at 12:45; Stop 09/26/18 at 13:05; Status DC Insulin Human Lispro (HumaLOG) 0-5 UNITS TIDWMEALS SQ ; Start 09/26/18 at 17:00; Status Cancel Dextrose (Dextrose 50%-Water Syringe) 12.5 gm PRN Q15MIN PRN IV SEE COMMENTS; Start 09/26/18 at 12:45 Ondansetron HCl (Zofran) 4 mg PRN Q6HRS PRN IV NAUSEA/VOMITING; Start 09/26/18 at 13:15 Acetaminophen (Tylenol) 500 mg PRN Q6HRS PRN PO MILD PAIN / TEMP; Start at 13:15 Insulin Human Lispro (HumaLOG) 0-9 UNITS TIDWMEALS SQ ; Start 09/26/18 at 17:00 Dextrose (Dextrose 50%-Water Syringe) 12.5 gm PRN Q15MIN PRN IV SEE COMMENTS; Start 09/26/18 at 13:15 Hydralazine HCl (Apresoline Inj) 10 mg PRN Q4HRS PRN IVP ELEVATED BP, SEE COMMENTS Last administered on 09/26/18at 23:41; Start 09/26/18 at 13:15 Allopurinol (Zyloprim) 200 mg DAILY PO Last administered on 09/27/18 09:16; Start 09/26/18 at 15:00 Amlodipine Besylate (Norvasc) 5 mg DAILY PO Last administered on 09/27/18 09: 17; Start 09/26/18 at 15:00 Aspirin (Ecotrin) 81 mg DAILY PO ; Start 09/27/18 at 09:00; Stop 09/27/18 at 09: 00; Status DC Clopidogrel Bisulfate (Plavix) 75 mg DAILY PO Last administered on 09/27/18at 09 :16; Start 09/26/18 at 15:00 EZETIMIBE (Zetia) 10 mg DAILY PO Last administered on 09/27/18 09:17; Start at 15:00 Gemfibrozil (Lopid) 600 mg DAILY PO Last administered on 09/27/18 09:17; Start 09/26/18 at 15:00 Acetaminophen/ Hydrocodone Bitart (Lortab 10/325) 1 tab PRN Q6HRS PRN PO MODERATE-SEVERE PAIN; Start 09/26/18 at 13:15 Metoprolol Succinate (Toprol Xl) 100 mg DAILY PO Last administered on at 09:16; Start 09/26/18 at 15:00 Tamsulosin HCl (Flomax) 0.4 mg HS PO Last administered on 09/26/18 21:13; Start 09/26/18 at 21:00 Ascorbic Acid (Vitamin C) 1,000 mg DAILY PO Last administered on 09/27/18at 09: 17; Start 09/26/18 at 15:00 Pantoprazole Sodium (Protonix) 40 mg DAILYAC PO Last administered on 09/27/18 09:17; Start 09/26/18 at 15:00 Losartan Potassium (Cozaar) 100 mg DAILY PO Last administered on 09/27/18 09: 18; Start 09/26/18 at 15:00 Multivitamins (Thera M Plus) 1 tab DAILY PO Last administered on 09/27/18 09: 16; Start 09/26/18 at 15:00 Propafenone HCl (Rythmol) 225 mg BID PO Last administered on 09/27/18at 09:27; Start 09/26/18 at 21:00; Stop 09/27/18 at 12:08; Status DC Non-Formulary Medication (Testosterone Cypionate ) 1 ml [id number] IM ; Start at 13:15; Status UNV Non-Formulary Medication (Ubidecarenone (Co Q-10)) 200 mg DAILY PO ; Start 09/27 at 09:00; Status UNV Apixaban (Eliquis) 5 mg BID PO Last administered on 09/27/18at 09:17; Start 09/26 at 15:00; Status Future Hold Info (Anti-Coagulation Monitoring By Pharmacy) 1 each PRN DAILY PRN MC SEE COMMENTS; Start 09/26/18 at 14:15 Atorvastatin Calcium (Lipitor) 20 mg QHS PO ; Start 09/27/18 at 21:00 Barium Sulfate (Varibar Thin Liquid Apple) 148 gm 1X ONCE PO Last administered on 09/27/18at 13:50; Start 09/27/18 at 12:00; Stop 09/27/18 at 12:01 ; Status DC Sodium Chloride 1,000 ml @ 100 mls/hr Q10H IV ; Start 09/27/18 at 16:30 Active Scripts Active Reported Toprol Xl (Metoprolol Succinate) 50 Mg Tab.er.24h 100 Mg PO DAILY Flomax (Tamsulosin Hcl) 0.4 Mg Cap.er.24h 1 Cap PO HS Cephalexin 500 Mg Capsule 1 Cap PO TID Allopurinol 100 Mg Tablet 2 Tab PO DAILY Amlodipine Besylate 5 Mg Tablet 5 Mg PO DAILY Testosterone Cypionate 200 Mg/1 Ml Vial 1 Ml IM [id number] Hydrocodone-Apap 10-325 (Hydrocodone Bit/Acetaminophen) 1 Each Tablet 1 Tab PO PRN Q6HRS PRN Clopidogrel (Clopidogrel Bisulfate) 75 Mg Tablet 1 Tab PO DAILY Vitamin C (Ascorbic Acid) 1,000 Mg Tablet 1,000 Mg PO DAILY Vitamin E (Vitamin E Mixed) 400 Unit Capsule 400 Unit PO Aspir 81 (Aspirin) 81 Mg Tablet.dr 1 Tab PO DAILY Co Q-10 (Ubidecarenone) 200 Mg Capsule 200 Mg PO DAILY Krill Oil 500 Mg Capsule 500 Mg PO Multi-Vitamin Daily (Multivitamin) 1 Each Tablet 1 Each PO DAILY Propafenone Hcl 150 Mg Tablet 225 Mg PO BID Gemfibrozil 600 Mg Tablet 1 Tab PO DAILY Zetia (Ezetimibe) 10 Mg Tablet 1 Tab PO DAILY Losartan Potassium 100 Mg Tablet 100 Mg PO DAILY Nexium Capsule (Esomeprazole Magnesium) 40 Mg Capsule. 1 Cap PO DAILY Allergies Allergies: Coded Allergies: Penicillins (Verified Allergy, Intermediate, rash, 09/06/18) amiodarone (Verified Allergy, Intermediate, 12/23/16) ROS Review of System As per HPI Physical Exam Physical Exam General appearance NAD HEENT: Right eye blindness. OM moist Neck supple Cardiovascular: S1, S2, RRR Pulmonary: Clear to auscultation bilaterally, No accessory muscle use Abdomen: nontender, and nondistended. Extremities: No edema NeUro=- see exam by neurologist No Rangel, No SP/CVA tenderness Vital Signs Vital Signs Date Time Temp Pulse Resp B/P (MAP) Pulse Ox O2 Delivery O2 Flow Rate FiO2 09/27/18 15:00 97.6 70 18 113/62 (79) 95 Room Air 97.6 Assessment & Plan CKD stage 3 - Stable renal function/eGFR Follows with Dr. Pat Deluna of [facility] Pt and family at bedside IVF pre and post contrast, on Diuretics at home, Holding currently Hold LOsartan if BP in 120's or lower if ok with card Cautious with IVF due to CHF and recent Hospitalization Weakness, dysarthria/2. Acute lacunar infarct; neuro following Carotid artery disease; carotid US with concern for right ICA complete occlusion. PAFIB; remains in AFIB with controlled rate. Eliquis for stroke prevention started last month. Chronic systolic/diastolic CHF; appears compensated ICM; LVEF30% per echo PCP would like to switch to Entresto For eGFR > no dose adjustment recommended, eGFR < 30 started at lower dose and titrated up Check dose with Pharmacy Conversion from ARB to Entresto CAD: CABGx2 in 2010. Recent MPI Hypertension; controlled Diabetes, II PAD with healing left foot ulcer: s/p percutaneous revascularization 04/2018. Pulmonary HTN; PAP 50 mmHg Discussed with Pt, family at bedside and RN Labs Labs Laboratory Tests Test 09/26/18 11:49 09/26/18 13:50 09/26/18 16:05 09/26/18 16:13 White Blood Count 7.5 x10^3/uL (4.0-11.0) Red Blood Count 4.48 x10^6/uL (4.30-5.70) Hemoglobin 13.5 g/dL (13.0-17.5) Hematocrit 41.8 % (39.0-53.0) Mean Corpuscular Volume 93 fL (79-100) Mean Corpuscular Hemoglobin 30 pg (25-35) Mean Corpuscular Hemoglobin Concent 32 g/dL (31-37) Red Cell Distribution Width 16.2 % (11.5-14.5) Platelet Count 324 x10^3/uL (140-400) Neutrophils (%) (Auto) 62 % (31-73) Lymphocytes (%) (Auto) 27 % (24-48) Monocytes (%) (Auto) 9 % (0-9) Eosinophils (%) (Auto) 2 % (0-3) Basophils (%) (Auto) 1 % (0-3) Neutrophils # (Auto) 4.6 x10^3uL (1.8-7.7) Lymphocytes # (Auto) 2.0 x10^3/uL (1.0-4.8) Monocytes # (Auto) 0.6 x10^3/uL (0.0-1.1) Eosinophils # (Auto) 0.1 x10^3/uL (0.0-0.7) Basophils # (Auto) 0.0 x10^3/uL (0.0-0.2) Prothrombin Time 18.1 SEC (11.7-14.0) Prothromb Time International Ratio 1.5 (0.8-1.1) Activated Partial Thromboplast Time 49 SEC (24-38) Sodium Level 136 mmol/L (136-145) Potassium Level 4.4 mmol/L (3.5-5.1) Chloride Level 99 mmol/L (98-107) Carbon Dioxide Level 24 mmol/L (21-32) Anion Gap 13 (6-14) Blood Urea Nitrogen 40 mg/dL (8-26) Creatinine 2.2 mg/dL (0.7-1.3) Estimated GFR (Cockcroft-Gault) 29.2 BUN/Creatinine Ratio 18 (6-20) Glucose Level 202 mg/dL (70-99) Lactic Acid Level 1.4 mmol/L (0.4-2.0) Calcium Level 10.0 mg/dL (8.5-10.1) Magnesium Level 2.1 mg/dL (1.8-2.4) Total Bilirubin 0.5 mg/dL (0.2-1.0) Aspartate Amino Transf (AST/SGOT) 18 U/L (15-37) Alanine Aminotransferase (ALT/SGPT) 19 U/L (16-63) Alkaline Phosphatase 94 U/L (46-116) Creatine Kinase 48 U/L (39-308) Creatine Kinase MB (Mass) 1.3 ng/mL (0.0-3.6) Creatine Kinase MB Relative Index % (0-4) Troponin I Quantitative 0.081 ng/mL (0.000-0.055) 0.081 ng/mL (0.000-0.055) Total Protein 8.0 g/dL (6.4-8.2) Albumin 3.8 g/dL (3.4-5.0) Albumin/Globulin Ratio 0.9 (1.0-1.7) Vitamin B12 Level 426 pg/mL (247-911) Urine Collection Type Unknown Urine Color Yellow Urine Clarity Clear Urine pH 6.5 Urine Specific Clarence 1.010 Urine Protein Negative mg/dL (NEG-TRACE) Urine Glucose (UA) Negative mg/dL (NEG) Urine Ketones (Stick) Negative mg/dL (NEG) Urine Blood Negative (NEG) Urine Nitrite Negative (NEG) Urine Bilirubin Negative (NEG) Urine Urobilinogen Dipstick 0.2 mg/dL (0.2 mg/dL) Urine Leukocyte Esterase Negative (NEG) Urine RBC Occ /HPF (0-2) Urine WBC Occ /HPF (0-4) Urine Squamous Epithelial Cells Few /LPF Urine Bacteria 0 /HPF (0-FEW) Urine Hyaline Casts Moderate /HPF Urine Mucus Slight /LPF Glucose (Fingerstick) 95 mg/dL (70-99) Test 09/26/18 18:50 09/26/18 20:17 09/27/18 05:30 09/27/18 13:02 Troponin I Quantitative 0.078 ng/mL (0.000-0.055) Glucose (Fingerstick) 111 mg/dL (70-99) 137 mg/dL (70-99) Sodium Level 138 mmol/L (136-145) Potassium Level 4.2 mmol/L (3.5-5.1) Chloride Level 102 mmol/L (98-107) Carbon Dioxide Level 24 mmol/L (21-32) Anion Gap 12 (6-14) Blood Urea Nitrogen 38 mg/dL (8-26) Creatinine 1.8 mg/dL (0.7-1.3) Estimated GFR (Cockcroft-Gault) 36.8 Glucose Level 110 mg/dL (70-99) Calcium Level 9.6 mg/dL (8.5-10.1) Triglycerides Level 150 mg/dL (0-150) Cholesterol Level 172 mg/dL (0-200) LDL Cholesterol, Calculated 119 mg/dL (0-100) VLDL Cholesterol, Calculated 30 mg/dL (0-40) Non-HDL Cholesterol Calculated 149 mg/dL (0-129) HDL Cholesterol 23 mg/dL (40-60) Cholesterol/HDL Ratio 7.5 Test 09/27/18 16:40 Glucose (Fingerstick) 128 mg/dL (70-99) Laboratory Tests Test 09/26/18 18:50 09/26/18 20:17 09/27/18 05:30 09/27/18 13:02 Troponin I Quantitative 0.078 ng/mL (0.000-0.055) Glucose (Fingerstick) 111 mg/dL (70-99) 137 mg/dL (70-99) Sodium Level 138 mmol/L (136-145) Potassium Level 4.2 mmol/L (3.5-5.1) Chloride Level 102 mmol/L (98-107) Carbon Dioxide Level 24 mmol/L (21-32) Anion Gap 12 (6-14) Blood Urea Nitrogen 38 mg/dL (8-26) Creatinine 1.8 mg/dL (0.7-1.3) Estimated GFR (Cockcroft-Gault) 36.8 Glucose Level 110 mg/dL (70-99) Calcium Level 9.6 mg/dL (8.5-10.1) Triglycerides Level 150 mg/dL (0-150) Cholesterol Level 172 mg/dL (0-200) LDL Cholesterol, Calculated 119 mg/dL (0-100) VLDL Cholesterol, Calculated 30 mg/dL (0-40) Non-HDL Cholesterol Calculated 149 mg/dL (0-129) HDL Cholesterol 23 mg/dL (40-60) Cholesterol/HDL Ratio 7.5 Test 09/27/18 16:40 Glucose (Fingerstick) 128 mg/dL (70-99) Review All relevant outside records, renal labs, imaging studies, telemetry/EKG's were reviewed. Images Images MRI Brain-- Impression: 1.7 cm area of acute lacunar ischemia/infarction is seen involving the right aspect of the nicho near the midline. There is no significant surrounding edema or associated mass effect. US CARotid- Absence of flow involving the right internal carotid artery of concern for complete occlusion. Extensive plaque bilaterally is noted involving the common carotid arteries greater on the right. Plaque noted in external carotid arteries and the left internal carotid artery. Elevated peak systolic velocity of the internal carotid artery corresponding to 50-69 percent stenosis is identified. PQRS Compliance Statement - Stenosis calculations for CT, MR and conventional angiography are based upon measurement of the distal ICA diameter in accordance with the NASCET methodology. Stenosis calculations for carotid ultrasound studies are derived from validated velocity criteria which are known to correlate with the NASCET methodology. JOSÉ MIGUEL MUNOZ MD Sep 27, 2018 17:14
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
[2018-09-27] MEDS: TAMSULOSIN 0.4 MG CAP.ER.24H. PO SCH (20:47)
[2018-09-27] MEDS ORDERED: ATORVASTATIN CALCIUM 20 MG TABLET PO SCH (21:00)
[2018-09-28 03:25] VITALS: BP 128/65
[2018-09-28 04:21] LABS: BASO % 0 % (0-3); EOS # 0.2 x10^3/uL (0.0-0.7); EOS % 3 % (0-3); HEMATOCRIT 40.2 % (39.0-53.0); LYMPH % 25 % (24-48); MEAN CORPUSCULAR HEMOGLOBIN 30 pg (25-35); MEAN CORPUSCULAR HGB CONC 32 g/dL (31-37); MEAN CORPUSCULAR VOLUME 92 fL (79-100); MONO # 0.7 x10^3/uL (0.0-1.1); MONO % 9 % (0-9); NEUT # 5.2 x10^3uL (1.8-7.7); NEUT % 64 % (31-73); PLATELET COUNT 312 x10^3/uL (140-400); RED BLOOD COUNT 4.36 x10^6/uL (4.30-5.70); WHITE BLOOD COUNT 8.2 x10^3/uL (4.0-11.0)
[2018-09-28 04:40] LABS: PROTHROMBIN TIME PATIENT 16.1 SEC (11.7-14.0)
[2018-09-28] MEDS: IV NORMAL SALINE 1000ML BAG 1,000 ML IV SCH ×2 (04:43→19:27)
[2018-09-28 06:29] LABS: ALBUMIN 3.5 g/dL (3.4-5.0); CALCIUM 9.4 mg/dL (8.5-10.1); CREATININE 2.1 mg/dL (0.7-1.3); GFR 30.8; PHOSPHORUS 3.4 mg/dL (2.6-4.7)
[2018-09-28 07:00] VITALS: BP 162/63
--- NOTE | 2018-09-28 07:04 | CONS ---
DATE OF CONSULTATION: 09/27/2018 CHIEF COMPLAINT: Carotid arterial disease and stroke. HISTORY OF PRESENT ILLNESS: The patient is a 78-year-old male who presented to the hospital on 09/26/2018 with complaints of difficulty walking because of weakness in his legs and he also had weakness in his arms. He had a difficult time speaking with slurred speech. He states since being in the hospitalization. His strength in his arms and legs has improved and he has also improved in his speech. Weakness on his Neurology evaluation was worse in the left side compared to the right side. He reports no previous strokes in the past. He reports not knowing of any carotid arterial disease in the past. He does take a daily Plavix and Eliquis at home for his heart. Here in the hospital, he has undergone a carotid duplex scan, which shows likely complete occlusion of the right internal carotid artery and left internal carotid artery stenosis reported as 50%-69%; however, velocities and ratio are more towards 50% on the left by duplex scan. He has also undergone an MRI scan of the brain, which showed a 1.7 cm area of acute lacunar infarct in the right region near the nicho. The patient does report a history of peripheral arterial disease in his legs, treated with angioplasty by Interventional Radiology in the past. He is able to ambulate without pain in his legs now. REVIEW OF SYSTEMS: A 10-point review of systems was performed, which is otherwise negative besides those mentioned in the history of present illness. PAST MEDICAL HISTORY: Includes: 1. Hypertension. 2. Coronary artery disease. 3. Hyperlipidemia. 4. Valvular insufficiency. 5. Gastroesophageal reflux disease. 6. Diabetes mellitus. 7. Chronic renal insufficiency. 8. Gout. 9. Benign prostate enlargement. 10. Atrial fibrillation. PAST SURGICAL HISTORY: Includes: 1. Coronary artery bypass graft with left radial artery harvest. 2. Total hip replacement. 3. Angiograms with lower extremity interventions for peripheral arterial disease. ALLERGIES: Include PENICILLIN and AMIODARONE. MEDICATIONS: Please see his full MAR and of note, he is on Plavix and Eliquis at home. SOCIAL HISTORY: The patient does not smoke or drink alcohol. PHYSICAL EXAMINATION: GENERAL: The patient is awake and alert, currently in no apparent distress. He is afebrile. His vital signs are stable. NECK: Supple with no carotid bruits heard. HEART: Regular rate and rhythm without murmurs. He has bilateral breath sounds to auscultation. No shortness of breath. EXTREMITIES: Bilateral upper extremities are warm. He has a right arm palpable radial pulse, his left arm has an incision over the radial location from his old harvest with no radial pulse. He does have an ulnar pulse. His bilateral lower extremities are warm without significant edema. ABDOMEN: Soft, obese, nondistended and nontender. NEUROLOGICAL: He is awake and alert and oriented x 3. He is moving all 4 extremities with good strength. His speech sounds fairly normal to me and his feels that it is almost back to his baseline. His cranial nerves are grossly intact. He does have slight facial drooping. IMPRESSION: 1. Complete right internal carotid artery occlusion, which is likely by duplex imaging. 2. [id number] left internal carotid artery stenosis. 3. Acute stroke in the right nicho region. PLAN: The patient has had an acute stroke in the right nicho region with slurred speech and dysarthria. He also has been found by duplex scan to have what is thought to be likely right internal carotid artery occlusion and [id number] stenosis of the left internal carotid artery. I recommend further evaluation of his carotid arteries to ensure that his right carotid artery is completely occluded with angiogram imaging. He does have chronic renal insufficiency; therefore, I would avoid a CT angiogram with the high contrast load. I would recommend a traditional angiogram to confirm that his right carotid artery is occluded. If it is, then just anticoagulation will be needed. If it does have a string sign or severe stenosis, then he would benefit from a right carotid endarterectomy. During the angiogram, we will confirm the left-sided disease, which is only mild to moderate by duplex scan. No urgent surgical intervention is needed. YANDEL WEBB MD DR: URBANO/natasha JOB#: [id number] / [id number]
[2018-09-28] MEDS: INSULIN LISPRO 300 UNITS/3 ML INSULN.PEN. SQ SCH ×3 (08:00→17:00)
[2018-09-28] MEDS: ALLOPURINOL 100 MG TABLET. PO SCH (10:01)
[2018-09-28] MEDS: LOSARTAN POTASSIUM 50 MG TABLET. PO SCH (10:01)
[2018-09-28] MEDS: GEMFIBROZIL 600 MG TABLET. PO SCH (10:02)
[2018-09-28] MEDS: amLODIPine BESYLATE 5 MG TABLET PO SCH (10:02)
[2018-09-28] MEDS: PANTOPRAZOLE 40 MG TABLET.DR. PO SCH (10:02)
[2018-09-28] MEDS: CLOPIDOGREL BISULFATE 75 MG TABLET PO SCH (10:02)
[2018-09-28] MEDS: ASCORBIC ACID 500 MG TABLET PO SCH (10:02)
[2018-09-28] MEDS: METOPROLOL SUCC 24HR ER 50 MG TAB.ER.24H. PO SCH (10:02)
[2018-09-28] MEDS: MULTIVITAMIN with MINERAL TABLET. PO SCH (10:02)
[2018-09-28] MEDS: EZETIMIBE 10 MG TABLET. PO SCH (10:02)
--- NOTE | 2018-09-28 10:33 | PDOC ---
PROGRESS NOTES History of Present Illness History of Present Illness Assessment/Plan Assessment/Plan mri head new : 1.7 cm area of acute lacunar ischemia/infarction is seen involving the right aspect of the nicho near the midline. There is no significant surrounding edema or associated mass effect. The Left Ventricle is borderline dilated. Left ventricle systolic function is moderate to severely impaired. The Ejection Fraction is estimated at 30%. c/w cardiomyopathy There is global hypokinesis of the left ventricle. Doppler and Color Flow revealed mild aortic regurgitation. Doppler and Color-flow revealed mild mitral regurgitation. Doppler and Color Flow revealed mild tricuspid regurgitation. The PA pressure was estimated at 50 mmHg. Shallow left nasolabial fold, dysarthria Generalized weakness Paroxysmal A. 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 History N STEMI Diabetes type 2 rather controlled dysphagia pulmonary hypertension, mod-severe [id number] left internal carotid artery stenosis. Absence of flow involving the right internal carotid artery of concern for complete occlusion. PLAN: VASC SURGERY CONSULT possibly change to tejal from [facility] if ok with nephrology cardiology consult pulm consult video-swallow Aspirin 325 Home meds reconciled including Plavix and Eliquis Neuro checks q 4 hrs Consult neurology MRI reviewed PT OT Scale insulin okay for ADA diet FULL CODE consult nephrology 47 min pt exam, chart review > 50% of time spent with exam, chart review, pt care coordination Vitals Vitals Vital Signs Date Time Temp Pulse Resp B/P (MAP) Pulse Ox O2 Delivery O2 Flow Rate FiO2 09/28/18 10:02 96 162/63 09/28/18 07:00 98.2 18 97 Room Air 98.2 Physical Exam General: Alert, Oriented X3, Cooperative, No acute distress Heart: Other (irr) Lungs: Clear Abdomen: Normal bowel sounds, Soft, No tenderness, No hepatosplenomegaly, No masses Extremities: No clubbing, No cyanosis, No edema, Normal pulses, No tenderness/ swelling Skin: No rashes, No breakdown, No significant lesion Labs LABS REASON: CVA PROCEDURE: DOPPLER CAROTID BILAT Examination: DOPPLER CAROTID BILAT History: cva Comparison/Correlation: None available at this time Technique: Duplex sonography of the cervical portion of both carotid arteries was performed. Real-time grayscale, color flow Doppler, and Doppler spectral waveform analysis is performed. Findings: Right side: Peak systolic flow velocity of the CCA is 118 cm/sec. Flow is not identified within the right internal carotid artery. The peak systolic velocity of the ECA is 168 cm/sec. Intimal thickening and plaque noted involving the right common carotid artery. Calcific plaque at the carotid bulb noted. Left side: Peak systolic flow velocity of the CCA is 118 cm/sec. Peak systolic flow velocity of the ICA is 164 cm/sec. The ICA/CCA ratio is 1.4. Peak end diastolic flow velocity of the ICA is 45 cm/sec. Peak systolic flow velocity of the ECA is 201 cm/sec. Moderate quantity of involving the left common carotid, internal carotid, and origin of the external carotid artery is evident. Vertebral arteries: Bilateral vertebral arteries demonstrate antegrade flow. IMPRESSION: Absence of flow involving the right internal carotid artery of concern for complete occlusion. Extensive plaque bilaterally is noted involving the common carotid arteries greater on the right. Plaque noted in external carotid arteries and the left internal carotid artery. Elevated peak systolic velocity of the internal carotid artery corresponding to 50-69 percent stenosis is identified. Laboratory Tests Test 09/27/18 13:02 09/27/18 16:40 09/27/18 20:44 09/28/18 03:25 Glucose (Fingerstick) 137 mg/dL (70-99) 128 mg/dL (70-99) 133 mg/dL (70-99) White Blood Count 8.2 x10^3/uL (4.0-11.0) Red Blood Count 4.36 x10^6/uL (4.30-5.70) Hemoglobin 13.0 g/dL (13.0-17.5) Hematocrit 40.2 % (39.0-53.0) Mean Corpuscular Volume 92 fL (79-100) Mean Corpuscular Hemoglobin 30 pg (25-35) Mean Corpuscular Hemoglobin Concent 32 g/dL (31-37) Red Cell Distribution Width 16.0 % (11.5-14.5) Platelet Count 312 x10^3/uL (140-400) Neutrophils (%) (Auto) 64 % (31-73) Lymphocytes (%) (Auto) 25 % (24-48) Monocytes (%) (Auto) 9 % (0-9) Eosinophils (%) (Auto) 3 % (0-3) Basophils (%) (Auto) 0 % (0-3) Neutrophils # (Auto) 5.2 x10^3uL (1.8-7.7) Lymphocytes # (Auto) 2.0 x10^3/uL (1.0-4.8) Monocytes # (Auto) 0.7 x10^3/uL (0.0-1.1) Eosinophils # (Auto) 0.2 x10^3/uL (0.0-0.7) Basophils # (Auto) 0.0 x10^3/uL (0.0-0.2) Prothrombin Time 16.1 SEC (11.7-14.0) Prothromb Time International Ratio 1.3 (0.8-1.1) Sodium Level 139 mmol/L (136-145) Potassium Level 4.0 mmol/L (3.5-5.1) Chloride Level 104 mmol/L (98-107) Carbon Dioxide Level 22 mmol/L (21-32) Anion Gap 13 (6-14) Blood Urea Nitrogen 43 mg/dL (8-26) Creatinine 2.1 mg/dL (0.7-1.3) Estimated GFR (Cockcroft-Gault) 30.8 Glucose Level 119 mg/dL (70-99) Calcium Level 9.4 mg/dL (8.5-10.1) Phosphorus Level 3.4 mg/dL (2.6-4.7) Albumin 3.5 g/dL (3.4-5.0) Test 09/28/18 07:12 Glucose (Fingerstick) 112 mg/dL (70-99) Assessment and Plan Assessmemt and Plan Problems Medical Problems: (1) Elevated troponin Status: Acute Comment Review of Relevant I have reviewed the following items viviane (where applicable) has been applied. Labs Laboratory Tests Test 09/26/18 11:49 09/26/18 13:50 09/26/18 16:05 09/26/18 16:13 White Blood Count 7.5 x10^3/uL (4.0-11.0) Red Blood Count 4.48 x10^6/uL (4.30-5.70) Hemoglobin 13.5 g/dL (13.0-17.5) Hematocrit 41.8 % (39.0-53.0) Mean Corpuscular Volume 93 fL (79-100) Mean Corpuscular Hemoglobin 30 pg (25-35) Mean Corpuscular Hemoglobin Concent 32 g/dL (31-37) Red Cell Distribution Width 16.2 % (11.5-14.5) Platelet Count 324 x10^3/uL (140-400) Neutrophils (%) (Auto) 62 % (31-73) Lymphocytes (%) (Auto) 27 % (24-48) Monocytes (%) (Auto) 9 % (0-9) Eosinophils (%) (Auto) 2 % (0-3) Basophils (%) (Auto) 1 % (0-3) Neutrophils # (Auto) 4.6 x10^3uL (1.8-7.7) Lymphocytes # (Auto) 2.0 x10^3/uL (1.0-4.8) Monocytes # (Auto) 0.6 x10^3/uL (0.0-1.1) Eosinophils # (Auto) 0.1 x10^3/uL (0.0-0.7) Basophils # (Auto) 0.0 x10^3/uL (0.0-0.2) Prothrombin Time 18.1 SEC (11.7-14.0) Prothromb Time International Ratio 1.5 (0.8-1.1) Activated Partial Thromboplast Time 49 SEC (24-38) Sodium Level 136 mmol/L (136-145) Potassium Level 4.4 mmol/L (3.5-5.1) Chloride Level 99 mmol/L (98-107) Carbon Dioxide Level 24 mmol/L (21-32) Anion Gap 13 (6-14) Blood Urea Nitrogen 40 mg/dL (8-26) Creatinine 2.2 mg/dL (0.7-1.3) Estimated GFR (Cockcroft-Gault) 29.2 BUN/Creatinine Ratio 18 (6-20) Glucose Level 202 mg/dL (70-99) Lactic Acid Level 1.4 mmol/L (0.4-2.0) Calcium Level 10.0 mg/dL (8.5-10.1) Magnesium Level 2.1 mg/dL (1.8-2.4) Total Bilirubin 0.5 mg/dL (0.2-1.0) Aspartate Amino Transf (AST/SGOT) 18 U/L (15-37) Alanine Aminotransferase (ALT/SGPT) 19 U/L (16-63) Alkaline Phosphatase 94 U/L (46-116) Creatine Kinase 48 U/L (39-308) Creatine Kinase MB (Mass) 1.3 ng/mL (0.0-3.6) Creatine Kinase MB Relative Index % (0-4) Troponin I Quantitative 0.081 ng/mL (0.000-0.055) 0.081 ng/mL (0.000-0.055) Total Protein 8.0 g/dL (6.4-8.2) Albumin 3.8 g/dL (3.4-5.0) Albumin/Globulin Ratio 0.9 (1.0-1.7) Vitamin B12 Level 426 pg/mL (247-911) Urine Collection Type Unknown Urine Color Yellow Urine Clarity Clear Urine pH 6.5 Urine Specific Weatherby 1.010 Urine Protein Negative mg/dL (NEG-TRACE) Urine Glucose (UA) Negative mg/dL (NEG) Urine Ketones (Stick) Negative mg/dL (NEG) Urine Blood Negative (NEG) Urine Nitrite Negative (NEG) Urine Bilirubin Negative (NEG) Urine Urobilinogen Dipstick 0.2 mg/dL (0.2 mg/dL) Urine Leukocyte Esterase Negative (NEG) Urine RBC Occ /HPF (0-2) Urine WBC Occ /HPF (0-4) Urine Squamous Epithelial Cells Few /LPF Urine Bacteria 0 /HPF (0-FEW) Urine Hyaline Casts Moderate /HPF Urine Mucus Slight /LPF Glucose (Fingerstick) 95 mg/dL (70-99) Test 09/26/18 18:50 09/26/18 20:17 09/27/18 05:30 09/27/18 13:02 Troponin I Quantitative 0.078 ng/mL (0.000-0.055) Glucose (Fingerstick) 111 mg/dL (70-99) 137 mg/dL (70-99) Sodium Level 138 mmol/L (136-145) Potassium Level 4.2 mmol/L (3.5-5.1) Chloride Level 102 mmol/L (98-107) Carbon Dioxide Level 24 mmol/L (21-32) Anion Gap 12 (6-14) Blood Urea Nitrogen 38 mg/dL (8-26) Creatinine 1.8 mg/dL (0.7-1.3) Estimated GFR (Cockcroft-Gault) 36.8 Glucose Level 110 mg/dL (70-99) Calcium Level 9.6 mg/dL (8.5-10.1) Triglycerides Level 150 mg/dL (0-150) Cholesterol Level 172 mg/dL (0-200) LDL Cholesterol, Calculated 119 mg/dL (0-100) VLDL Cholesterol, Calculated 30 mg/dL (0-40) Non-HDL Cholesterol Calculated 149 mg/dL (0-129) HDL Cholesterol 23 mg/dL (40-60) Cholesterol/HDL Ratio 7.5 Test 09/27/18 16:40 09/27/18 20:44 09/28/18 03:25 09/28/18 07:12 Glucose (Fingerstick) 128 mg/dL (70-99) 133 mg/dL (70-99) 112 mg/dL (70-99) White Blood Count 8.2 x10^3/uL (4.0-11.0) Red Blood Count 4.36 x10^6/uL (4.30-5.70) Hemoglobin 13.0 g/dL (13.0-17.5) Hematocrit 40.2 % (39.0-53.0) Mean Corpuscular Volume 92 fL (79-100) Mean Corpuscular Hemoglobin 30 pg (25-35) Mean Corpuscular Hemoglobin Concent 32 g/dL (31-37) Red Cell Distribution Width 16.0 % (11.5-14.5) Platelet Count 312 x10^3/uL (140-400) Neutrophils (%) (Auto) 64 % (31-73) Lymphocytes (%) (Auto) 25 % (24-48) Monocytes (%) (Auto) 9 % (0-9) Eosinophils (%) (Auto) 3 % (0-3) Basophils (%) (Auto) 0 % (0-3) Neutrophils # (Auto) 5.2 x10^3uL (1.8-7.7) Lymphocytes # (Auto) 2.0 x10^3/uL (1.0-4.8) Monocytes # (Auto) 0.7 x10^3/uL (0.0-1.1) Eosinophils # (Auto) 0.2 x10^3/uL (0.0-0.7) Basophils # (Auto) 0.0 x10^3/uL (0.0-0.2) Prothrombin Time 16.1 SEC (11.7-14.0) Prothromb Time International Ratio 1.3 (0.8-1.1) Sodium Level 139 mmol/L (136-145) Potassium Level 4.0 mmol/L (3.5-5.1) Chloride Level 104 mmol/L (98-107) Carbon Dioxide Level 22 mmol/L (21-32) Anion Gap 13 (6-14) Blood Urea Nitrogen 43 mg/dL (8-26) Creatinine 2.1 mg/dL (0.7-1.3) Estimated GFR (Cockcroft-Gault) 30.8 Glucose Level 119 mg/dL (70-99) Calcium Level 9.4 mg/dL (8.5-10.1) Phosphorus Level 3.4 mg/dL (2.6-4.7) Albumin 3.5 g/dL (3.4-5.0) Laboratory Tests Test 09/27/18 13:02 09/27/18 16:40 09/27/18 20:44 09/28/18 03:25 Glucose (Fingerstick) 137 mg/dL (70-99) 128 mg/dL (70-99) 133 mg/dL (70-99) White Blood Count 8.2 x10^3/uL (4.0-11.0) Red Blood Count 4.36 x10^6/uL (4.30-5.70) Hemoglobin 13.0 g/dL (13.0-17.5) Hematocrit 40.2 % (39.0-53.0) Mean Corpuscular Volume 92 fL (79-100) Mean Corpuscular Hemoglobin 30 pg (25-35) Mean Corpuscular Hemoglobin Concent 32 g/dL (31-37) Red Cell Distribution Width 16.0 % (11.5-14.5) Platelet Count 312 x10^3/uL (140-400) Neutrophils (%) (Auto) 64 % (31-73) Lymphocytes (%) (Auto) 25 % (24-48) Monocytes (%) (Auto) 9 % (0-9) Eosinophils (%) (Auto) 3 % (0-3) Basophils (%) (Auto) 0 % (0-3) Neutrophils # (Auto) 5.2 x10^3uL (1.8-7.7) Lymphocytes # (Auto) 2.0 x10^3/uL (1.0-4.8) Monocytes # (Auto) 0.7 x10^3/uL (0.0-1.1) Eosinophils # (Auto) 0.2 x10^3/uL (0.0-0.7) Basophils # (Auto) 0.0 x10^3/uL (0.0-0.2) Prothrombin Time 16.1 SEC (11.7-14.0) Prothromb Time International Ratio 1.3 (0.8-1.1) Sodium Level 139 mmol/L (136-145) Potassium Level 4.0 mmol/L (3.5-5.1) Chloride Level 104 mmol/L (98-107) Carbon Dioxide Level 22 mmol/L (21-32) Anion Gap 13 (6-14) Blood Urea Nitrogen 43 mg/dL (8-26) Creatinine 2.1 mg/dL (0.7-1.3) Estimated GFR (Cockcroft-Gault) 30.8 Glucose Level 119 mg/dL (70-99) Calcium Level 9.4 mg/dL (8.5-10.1) Phosphorus Level 3.4 mg/dL (2.6-4.7) Albumin 3.5 g/dL (3.4-5.0) Test 09/28/18 07:12 Glucose (Fingerstick) 112 mg/dL (70-99) Medications Current Medications Sodium Chloride 1,000 ml @ 1,000 mls/hr 1X ONCE IV Last administered on at 12:21; Start 09/26/18 at 11:45; Stop 09/26/18 at 12:44; Status DC Aspirin (Kodak Aspirin) 325 mg 1X ONCE PO Last administered on 09/26/18at 13:04 ; Start 09/26/18 at 12:30; Stop 09/26/18 at 12:31; Status DC Ondansetron HCl (Zofran) 4 mg PRN Q8HRS PRN IV NAUSEA/VOMITING; Start 09/26/18 at 12:45; Stop 09/26/18 at 13:05; Status DC Insulin Human Lispro (HumaLOG) 0-5 UNITS TIDWMEALS SQ ; Start 09/26/18 at 17:00; Status Cancel Dextrose (Dextrose 50%-Water Syringe) 12.5 gm PRN Q15MIN PRN IV SEE COMMENTS; Start 09/26/18 at 12:45 Ondansetron HCl (Zofran) 4 mg PRN Q6HRS PRN IV NAUSEA/VOMITING; Start 09/26/18 at 13:15 Acetaminophen (Tylenol) 500 mg PRN Q6HRS PRN PO MILD PAIN / TEMP; Start at 13:15 Insulin Human Lispro (HumaLOG) 0-9 UNITS TIDWMEALS SQ ; Start 09/26/18 at 17:00 Dextrose (Dextrose 50%-Water Syringe) 12.5 gm PRN Q15MIN PRN IV SEE COMMENTS; Start 09/26/18 at 13:15 Hydralazine HCl (Apresoline Inj) 10 mg PRN Q4HRS PRN IVP ELEVATED BP, SEE COMMENTS Last administered on 09/26/18at 23:41; Start 09/26/18 at 13:15 Allopurinol (Zyloprim) 200 mg DAILY PO Last administered on 09/28/18at 10:01; Start 09/26/18 at 15:00 Amlodipine Besylate (Norvasc) 5 mg DAILY PO Last administered on 09/28/18at 10: 02; Start 09/26/18 at 15:00 Aspirin (Ecotrin) 81 mg DAILY PO ; Start 09/27/18 at 09:00; Stop 09/27/18 at 09: 00; Status DC Clopidogrel Bisulfate (Plavix) 75 mg DAILY PO Last administered on 09/28/18at 10 :02; Start 09/26/18 at 15:00 EZETIMIBE (Zetia) 10 mg DAILY PO Last administered on 09/28/18at 10:02; Start at 15:00 Gemfibrozil (Lopid) 600 mg DAILY PO Last administered on 09/28/18at 10:02; Start 09/26/18 at 15:00 Acetaminophen/ Hydrocodone Bitart (Lortab 10/325) 1 tab PRN Q6HRS PRN PO MODERATE-SEVERE PAIN; Start 09/26/18 at 13:15 Metoprolol Succinate (Toprol Xl) 100 mg DAILY PO Last administered on 10:02; Start 09/26/18 at 15:00 Tamsulosin HCl (Flomax) 0.4 mg HS PO Last administered on 09/27/18 20:47; Start 09/26/18 at 21:00 Ascorbic Acid (Vitamin C) 1,000 mg DAILY PO Last administered on 09/28/18 10: 02; Start 09/26/18 at 15:00 Pantoprazole Sodium (Protonix) 40 mg DAILYAC PO Last administered on 09/28/18 10:02; Start 09/26/18 at 15:00 Losartan Potassium (Cozaar) 100 mg DAILY PO Last administered on 09/28/18 10: 01; Start 09/26/18 at 15:00 Multivitamins (Thera M Plus) 1 tab DAILY PO Last administered on 09/28/18 10: 02; Start 09/26/18 at 15:00 Propafenone HCl (Rythmol) 225 mg BID PO Last administered on 09/27/18 09:27; Start 09/26/18 at 21:00; Stop 09/27/18 at 12:08; Status DC Non-Formulary Medication (Testosterone Cypionate ) 1 ml [id number] IM ; Start at 13:15; Status UNV Non-Formulary Medication (Ubidecarenone (Co Q-10)) 200 mg DAILY PO ; Start 09/27 at 09:00; Status UNV Apixaban (Eliquis) 5 mg BID PO Last administered on 09/27/18at 09:17; Start 09/26 at 15:00; Status Future Hold Info (Anti-Coagulation Monitoring By Pharmacy) 1 each PRN DAILY PRN MC SEE COMMENTS; Start 09/26/18 at 14:15 Atorvastatin Calcium (Lipitor) 20 mg QHS PO ; Start 09/27/18 at 21:00; Stop 04/07 at 21:00; Status DC Barium Sulfate (Varibar Thin Liquid Apple) 148 gm 1X ONCE PO Last administered on 09/27/18at 13:50; Start 09/27/18 at 12:00; Stop 09/27/18 at 12:01 ; Status DC Sodium Chloride 1,000 ml @ 80 mls/hr [id number] IV ; Start 09/27/18 at 16:30 Active Scripts Active Reported Toprol Xl (Metoprolol Succinate) 50 Mg Tab.er.24h 100 Mg PO DAILY Flomax (Tamsulosin Hcl) 0.4 Mg Cap.er.24h 1 Cap PO HS Allopurinol 100 Mg Tablet 3 Tab PO DAILY Amlodipine Besylate 5 Mg Tablet 10 Mg PO DAILY Testosterone Cypionate 200 Mg/1 Ml Vial 1 Ml IM [id number] Hydrocodone-Apap 10-325 (Hydrocodone Bit/Acetaminophen) 1 Each Tablet 1 Tab PO PRN Q6HRS PRN Clopidogrel (Clopidogrel Bisulfate) 75 Mg Tablet 1 Tab PO DAILY Vitamin C (Ascorbic Acid) 1,000 Mg Tablet 1,000 Mg PO DAILY Co Q-10 (Ubidecarenone) 200 Mg Capsule 200 Mg PO DAILY Krill Oil 500 Mg Capsule 500 Mg PO Multi-Vitamin Daily (Multivitamin) 1 Each Tablet 1 Each PO DAILY Gemfibrozil 600 Mg Tablet 1 Tab PO DAILY Zetia (Ezetimibe) 10 Mg Tablet 1 Tab PO DAILY Losartan Potassium 100 Mg Tablet 100 Mg PO DAILY Nexium Capsule (Esomeprazole Magnesium) 40 Mg Capsule. 1 Cap PO DAILY Vitals/I & O Vital Sign - Last 24 Hours 09/27/18 09/27/18 09/27/18 09/27/18 11:00 15:00 19:00 20:00 Temp 97.7 97.6 98.0 97.7 97.6 98.0 Pulse 74 70 69 Resp 18 18 16 B/P (MAP) 126/65 (85) 113/62 (79) 138/64 (88) Pulse Ox 94 95 96 O2 Delivery Room Air Room Air Room Air Room Air 09/27/18 09/28/18 09/28/18 09/28/18 23:10 03:25 07:00 10:01 Temp 98.1 97.4 98.2 98.1 97.4 98.2 Pulse 54 77 96 96 Resp 16 16 18 B/P (MAP) 140/53 (82) 128/65 (86) 162/63 (96) 162/63 Pulse Ox 93 97 97 O2 Delivery Room Air Room Air Room Air 09/28/18 09/28/18 10:02 10:02 Pulse 96 96 B/P (MAP) 162/63 162/63 Intake and Output 09/27/18 09/27/18 09/28/18 14:59 22:59 06:59 Intake Total 200 ml Balance 200 ml KAREN REYES MD Sep 28, 2018 10:33
[2018-09-28 11:00] VITALS: BP 144/61
--- NOTE | 2018-09-28 12:10 | PDOC ---
GEM MULLEN ASSISTANCE COORDINATOR 09/28/18 1210: CARDIO Progress Notes Date and Time Date of Service 09/28/18 Time of Evaluation 1030 Subjective Subjective: No Chest Pain, No shortness of breath, No Palpitations, Other ( speech improved) Vitals Vitals Vital Signs Date Time Temp Pulse Resp B/P (MAP) Pulse Ox O2 Delivery O2 Flow Rate FiO2 09/28/18 11:00 98.0 60 18 144/61 (88) 97 Room Air 98.0 Weight Weight [ ] Input and Output Intake and Output Intake and Output 09/28/18 06:59 Intake Total 200 ml Balance 200 ml Intake Oral 200 ml # Bowel Movements 6 Laboratory Labs Laboratory Tests Test 09/27/18 13:02 09/27/18 16:40 09/27/18 20:44 09/28/18 03:25 Glucose (Fingerstick) 137 mg/dL (70-99) 128 mg/dL (70-99) 133 mg/dL (70-99) White Blood Count 8.2 x10^3/uL (4.0-11.0) Red Blood Count 4.36 x10^6/uL (4.30-5.70) Hemoglobin 13.0 g/dL (13.0-17.5) Hematocrit 40.2 % (39.0-53.0) Mean Corpuscular Volume 92 fL (79-100) Mean Corpuscular Hemoglobin 30 pg (25-35) Mean Corpuscular Hemoglobin Concent 32 g/dL (31-37) Red Cell Distribution Width 16.0 % (11.5-14.5) Platelet Count 312 x10^3/uL (140-400) Neutrophils (%) (Auto) 64 % (31-73) Lymphocytes (%) (Auto) 25 % (24-48) Monocytes (%) (Auto) 9 % (0-9) Eosinophils (%) (Auto) 3 % (0-3) Basophils (%) (Auto) 0 % (0-3) Neutrophils # (Auto) 5.2 x10^3uL (1.8-7.7) Lymphocytes # (Auto) 2.0 x10^3/uL (1.0-4.8) Monocytes # (Auto) 0.7 x10^3/uL (0.0-1.1) Eosinophils # (Auto) 0.2 x10^3/uL (0.0-0.7) Basophils # (Auto) 0.0 x10^3/uL (0.0-0.2) Prothrombin Time 16.1 SEC (11.7-14.0) Prothromb Time International Ratio 1.3 (0.8-1.1) Sodium Level 139 mmol/L (136-145) Potassium Level 4.0 mmol/L (3.5-5.1) Chloride Level 104 mmol/L (98-107) Carbon Dioxide Level 22 mmol/L (21-32) Anion Gap 13 (6-14) Blood Urea Nitrogen 43 mg/dL (8-26) Creatinine 2.1 mg/dL (0.7-1.3) Estimated GFR (Cockcroft-Gault) 30.8 Glucose Level 119 mg/dL (70-99) Calcium Level 9.4 mg/dL (8.5-10.1) Phosphorus Level 3.4 mg/dL (2.6-4.7) Albumin 3.5 g/dL (3.4-5.0) Test 09/28/18 07:12 09/28/18 11:38 Glucose (Fingerstick) 112 mg/dL (70-99) 130 mg/dL (70-99) Physical Exam HEENT: Neck Supple W Full Motion Chest: Symmetric LUNGS: Clear to Auscultation Heart: S1S2, irregularly irregular Abdomen: Soft N/T Extremities: No Edema Neurology: alert, oriented, follow commands Assessment Assessment 1. Weakness, dysarthria; improved 2. Acute stroke 3. Carotid artery disease; right ICA stenosis; angiogram to confirm complete occlusion planned for tomorrow by vascular 4. PAFIB; AFIB with controlled rate. 5. Chronic systolic/diastolic CHF; compensated 6. ICM; LVEF30% per echo 8. CAD: CABGx2 9. DANNA on CKD; Cr ^ 2.1 10. Hypertension; controlled 11. Hyperlipidemia; intolerant to statin 12. Diabetes, II Recommendations Low flow IVF given DANNA/CKD Monitor fluid status closely with CMP Supportive care Will need Eliquis, Plavix following vascular workup/intervention RONALDO DANIEL MD 09/28/18 7231: CARDIO Progress Notes Plan Plan Pt. seen and examined. Agree with above Optoelectronic Technician note. Continue supportive care from CV standpoint. No urgent interventions from our perspective. Monitor fluid intake. Restart eliquis after procedures. Thanks GEM MULLEN APRN Sep 28, 2018 12:10 RONALDO DANIEL MD Sep 28, 2018 15:49
--- NOTE | 2018-09-28 12:18 | PDOC ---
PULMONARY PROGRESS NOTES Subjective sob better, has occ cough, no pain Vitals Vital Signs Date Time Temp Pulse Resp B/P (MAP) Pulse Ox O2 Delivery O2 Flow Rate FiO2 09/28/18 11:00 98.0 60 18 144/61 (88) 97 Room Air 98.0 ROS: No Nausea General: No acute distress HEENT: Other (nc at perrl ) Lungs: Clear Cardiovascular: S1, S2 Abdomen: Soft, Non-tender Neuro Exam: Alert Extremities: No Edema Skin: Warm Labs Laboratory Tests Test 09/26/18 13:50 09/26/18 16:05 09/26/18 16:13 09/26/18 18:50 Urine Collection Type Unknown Urine Color Yellow Urine Clarity Clear Urine pH 6.5 Urine Specific Lambert 1.010 Urine Protein Negative mg/dL (NEG-TRACE) Urine Glucose (UA) Negative mg/dL (NEG) Urine Ketones (Stick) Negative mg/dL (NEG) Urine Blood Negative (NEG) Urine Nitrite Negative (NEG) Urine Bilirubin Negative (NEG) Urine Urobilinogen Dipstick 0.2 mg/dL (0.2 mg/dL) Urine Leukocyte Esterase Negative (NEG) Urine RBC Occ /HPF (0-2) Urine WBC Occ /HPF (0-4) Urine Squamous Epithelial Cells Few /LPF Urine Bacteria 0 /HPF (0-FEW) Urine Hyaline Casts Moderate /HPF Urine Mucus Slight /LPF Troponin I Quantitative 0.081 ng/mL (0.000-0.055) 0.078 ng/mL (0.000-0.055) Glucose (Fingerstick) 95 mg/dL (70-99) Test 09/26/18 20:17 09/27/18 05:30 09/27/18 13:02 09/27/18 16:40 Glucose (Fingerstick) 111 mg/dL (70-99) 137 mg/dL (70-99) 128 mg/dL (70-99) Sodium Level 138 mmol/L (136-145) Potassium Level 4.2 mmol/L (3.5-5.1) Chloride Level 102 mmol/L (98-107) Carbon Dioxide Level 24 mmol/L (21-32) Anion Gap 12 (6-14) Blood Urea Nitrogen 38 mg/dL (8-26) Creatinine 1.8 mg/dL (0.7-1.3) Estimated GFR (Cockcroft-Gault) 36.8 Glucose Level 110 mg/dL (70-99) Calcium Level 9.6 mg/dL (8.5-10.1) Triglycerides Level 150 mg/dL (0-150) Cholesterol Level 172 mg/dL (0-200) LDL Cholesterol, Calculated 119 mg/dL (0-100) VLDL Cholesterol, Calculated 30 mg/dL (0-40) Non-HDL Cholesterol Calculated 149 mg/dL (0-129) HDL Cholesterol 23 mg/dL (40-60) Cholesterol/HDL Ratio 7.5 Test 09/27/18 20:44 09/28/18 03:25 09/28/18 07:12 09/28/18 11:38 Glucose (Fingerstick) 133 mg/dL (70-99) 112 mg/dL (70-99) 130 mg/dL (70-99) White Blood Count 8.2 x10^3/uL (4.0-11.0) Red Blood Count 4.36 x10^6/uL (4.30-5.70) Hemoglobin 13.0 g/dL (13.0-17.5) Hematocrit 40.2 % (39.0-53.0) Mean Corpuscular Volume 92 fL (79-100) Mean Corpuscular Hemoglobin 30 pg (25-35) Mean Corpuscular Hemoglobin Concent 32 g/dL (31-37) Red Cell Distribution Width 16.0 % (11.5-14.5) Platelet Count 312 x10^3/uL (140-400) Neutrophils (%) (Auto) 64 % (31-73) Lymphocytes (%) (Auto) 25 % (24-48) Monocytes (%) (Auto) 9 % (0-9) Eosinophils (%) (Auto) 3 % (0-3) Basophils (%) (Auto) 0 % (0-3) Neutrophils # (Auto) 5.2 x10^3uL (1.8-7.7) Lymphocytes # (Auto) 2.0 x10^3/uL (1.0-4.8) Monocytes # (Auto) 0.7 x10^3/uL (0.0-1.1) Eosinophils # (Auto) 0.2 x10^3/uL (0.0-0.7) Basophils # (Auto) 0.0 x10^3/uL (0.0-0.2) Prothrombin Time 16.1 SEC (11.7-14.0) Prothromb Time International Ratio 1.3 (0.8-1.1) Sodium Level 139 mmol/L (136-145) Potassium Level 4.0 mmol/L (3.5-5.1) Chloride Level 104 mmol/L (98-107) Carbon Dioxide Level 22 mmol/L (21-32) Anion Gap 13 (6-14) Blood Urea Nitrogen 43 mg/dL (8-26) Creatinine 2.1 mg/dL (0.7-1.3) Estimated GFR (Cockcroft-Gault) 30.8 Glucose Level 119 mg/dL (70-99) Calcium Level 9.4 mg/dL (8.5-10.1) Phosphorus Level 3.4 mg/dL (2.6-4.7) Albumin 3.5 g/dL (3.4-5.0) Laboratory Tests Test 09/27/18 13:02 09/27/18 16:40 09/27/18 20:44 09/28/18 03:25 Glucose (Fingerstick) 137 mg/dL (70-99) 128 mg/dL (70-99) 133 mg/dL (70-99) White Blood Count 8.2 x10^3/uL (4.0-11.0) Red Blood Count 4.36 x10^6/uL (4.30-5.70) Hemoglobin 13.0 g/dL (13.0-17.5) Hematocrit 40.2 % (39.0-53.0) Mean Corpuscular Volume 92 fL (79-100) Mean Corpuscular Hemoglobin 30 pg (25-35) Mean Corpuscular Hemoglobin Concent 32 g/dL (31-37) Red Cell Distribution Width 16.0 % (11.5-14.5) Platelet Count 312 x10^3/uL (140-400) Neutrophils (%) (Auto) 64 % (31-73) Lymphocytes (%) (Auto) 25 % (24-48) Monocytes (%) (Auto) 9 % (0-9) Eosinophils (%) (Auto) 3 % (0-3) Basophils (%) (Auto) 0 % (0-3) Neutrophils # (Auto) 5.2 x10^3uL (1.8-7.7) Lymphocytes # (Auto) 2.0 x10^3/uL (1.0-4.8) Monocytes # (Auto) 0.7 x10^3/uL (0.0-1.1) Eosinophils # (Auto) 0.2 x10^3/uL (0.0-0.7) Basophils # (Auto) 0.0 x10^3/uL (0.0-0.2) Prothrombin Time 16.1 SEC (11.7-14.0) Prothromb Time International Ratio 1.3 (0.8-1.1) Sodium Level 139 mmol/L (136-145) Potassium Level 4.0 mmol/L (3.5-5.1) Chloride Level 104 mmol/L (98-107) Carbon Dioxide Level 22 mmol/L (21-32) Anion Gap 13 (6-14) Blood Urea Nitrogen 43 mg/dL (8-26) Creatinine 2.1 mg/dL (0.7-1.3) Estimated GFR (Cockcroft-Gault) 30.8 Glucose Level 119 mg/dL (70-99) Calcium Level 9.4 mg/dL (8.5-10.1) Phosphorus Level 3.4 mg/dL (2.6-4.7) Albumin 3.5 g/dL (3.4-5.0) Test 09/28/18 07:12 09/28/18 11:38 Glucose (Fingerstick) 112 mg/dL (70-99) 130 mg/dL (70-99) Medications Active Scripts Medications Dose Route/Sig Max Daily Dose Days Date Category Toprol Xl (Metoprolol Succinate) 50 Mg Tab.er.24h 100 Mg PO DAILY 09/07/18 Reported Flomax (Tamsulosin Hcl) 0.4 Mg Cap.er.24h 1 Cap PO HS 09/06/18 Reported Allopurinol 100 Mg Tablet 3 Tab PO DAILY 09/06/18 Reported Amlodipine Besylate 5 Mg Tablet 10 Mg PO DAILY 09/06/18 Reported Testosterone Cypionate 200 Mg/1 Ml Vial 1 Ml IM [id number] 12/23/16 Reported Hydrocodone-Apap 10-325 (Hydrocodone Bit/Acetaminophen) 1 Each Tablet 1 Tab PO PRN Q6HRS PRN 12/23/16 Reported Clopidogrel (Clopidogrel Bisulfate) 75 Mg Tablet 1 Tab PO DAILY 12/23/16 Reported Vitamin C (Ascorbic Acid) 1,000 Mg Tablet 1,000 Mg PO DAILY 12/16/15 Reported Co Q-10 (Ubidecarenone) 200 Mg Capsule 200 Mg PO DAILY 12/16/15 Reported Krill Oil 500 Mg Capsule 500 Mg PO 12/16/15 Reported Multi-Vitamin Daily (Multivitamin) 1 Each Tablet 1 Each PO DAILY 12/16/15 Reported Gemfibrozil 600 Mg Tablet 1 Tab PO DAILY 12/16/15 Reported Zetia (Ezetimibe) 10 Mg Tablet 1 Tab PO DAILY 12/16/15 Reported Losartan Potassium 100 Mg Tablet 100 Mg PO DAILY 12/16/15 Reported Nexium Capsule (Esomeprazole Magnesium) 40 Mg Capsule. 1 Cap PO DAILY 12/16/15 Reported Impression . IMPRESSION: 1. Acute onset of slurred speech and dysarthria compatible with acute lacunar cerebrovascular accident. 2. Moderate pulmonary hypertension based on the recent echo from August. Ejection fraction was 30%, and pulmonary artery pressure was 50. This is likely secondary pulmonary hypertension related to left ventricular dysfunction. No significant chronic obstructive pulmonary disease by history. No history of chronic thromboembolic disease. The patient does have symptoms suggestive of sleep apnea and would benefit from outpatient sleep study. 3. History of coronary artery disease, status post coronary artery bypass graft. 4. Cardiomyopathy, which is ischemic with an ejection fraction of 30%. 5. Paroxysmal atrial fibrillation. 6. Very minimal asbestos exposure. Radiographically, I do not see any significant interstitial lung disease. Plan . RECOMMENDATIONS: 1. Follow Neurology recommendations. 2. From a pulmonary standpoint, I would do an outpatient sleep study to rule out underlying sleep apnea, which may become more obvious during the initial weeks of stroke. 3. Weight loss is advised. 4. No need for any further workup for pulmonary hypertension as it is secondary to his cardiomyopathy. 5. Bronchodilators p.r.n. 6. 6-minute walk test at the time of discharge. 7. Follow Cardiology recommendation. 8. Eliquis for atrial fibrillation per Cardiology. 9. Discussed with pt and his . We will follow along with you. MARGARITO JOHANSEN MD Sep 28, 2018 12:18
--- NOTE | 2018-09-28 12:27 | PDOC ---
SUBJECTIVE ROS States feeling better , No SOB. Speech Improved OBJECTIVE Vital Signs Vital Signs Date Time Temp Pulse Resp B/P (MAP) Pulse Ox O2 Delivery O2 Flow Rate FiO2 09/28/18 11:00 98.0 60 18 144/61 (88) 97 Room Air 98.0 I & 0 Intake and Output 09/28/18 07:00 Intake Total 200 ml Balance 200 ml Intake Oral 200 ml # Bowel Movements 6 PHYSICAL EXAM Physical Exam General appearance NAD HEENT: Right eye blindness. OM moist Neck supple Cardiovascular: S1, S2, RRR Pulmonary: Clear to auscultation bilaterally, No accessory muscle use Abdomen: nontender, and nondistended. Extremities: No edema NeUro=- see exam by neurologist No Rangel, No SP/CVA tenderness DIAGNOSIS/ASSESSMENT Assessment & Plan CKD stage 3 - Stable renal function/eGFR Follows with Dr. Pat Rendon CHASITY dw Pt and family at bedside IVF pre and post contrast, on Diuretics at home, Holding currently Hold LOsartan if BP in 120's or lower if ok with card Cautious with IVF due to CHF and recent Hospitalization Agree with Holding IVF if Angio postponed for tomorrow to avoid Vol Overload due to CHF Start Cautiously 12 hrs before procedure Weakness, dysarthria/2. Acute lacunar infarct; neuro following Improved as per Pt Carotid artery disease; carotid US with concern for right ICA complete occlusion. PAFIB; remains in AFIB with controlled rate. Eliquis for stroke prevention started last month. Chronic systolic/diastolic CHF; appears compensated ICM; LVEF30% per echo PCP would like to switch to Entresto For eGFR > no dose adjustment recommended, eGFR < 30 started at lower dose and titrated up Check dose with Pharmacy Conversion from ARB to Entresto CAD: CABGx2 in 2010. Recent MPI Hypertension; controlled Diabetes, II PAD with healing left foot ulcer: s/p percutaneous revascularization 04/2018. Pulmonary HTN; PAP 50 mmHg Discussed with Pt and at bedside COMMENT/RELEVANT DATA Meds Current Medications Medications (Trade) Dose Ordered Sig/Cha Start Time Stop Time Status Last Admin Dose Admin Acetaminophen (Tylenol) 500 mg PRN Q6HRS PRN 09/26/18 13:15 Acetaminophen/ Hydrocodone Bitart (Lortab 10/325) 1 tab PRN Q6HRS PRN 09/26/18 13:15 Allopurinol (Zyloprim) 200 mg DAILY 09/26/18 15:00 09/28/18 10:01 200 MG Amlodipine Besylate (Norvasc) 5 mg DAILY 09/26/18 15:00 09/28/18 10:02 5 MG Apixaban (Eliquis) 5 mg BID 09/26/18 15:00 Future Hold 09/27/18 09:17 5 MG Ascorbic Acid (Vitamin C) 1,000 mg DAILY 09/26/18 15:00 09/28/18 10:02 1,000 MG Aspirin (Kodak Aspirin) 325 mg 1X ONCE 09/26/18 12:30 09/26/18 12:31 DC 09/26/18 13:04 325 MG Aspirin (Ecotrin) 81 mg DAILY 09/27/18 09:00 09/27/18 09:00 DC Atorvastatin Calcium (Lipitor) 20 mg QHS 09/27/18 21:00 09/27/18 21:00 DC Barium Sulfate (Varibar Thin Liquid Apple) 148 gm 1X ONCE 09/27/18 12:00 09/27/18 12:01 DC 09/27/18 13:50 148 GM Clopidogrel Bisulfate (Plavix) 75 mg DAILY 09/26/18 15:00 09/28/18 10:02 75 MG Dextrose (Dextrose 50%-Water Syringe) 12.5 gm PRN Q15MIN PRN 09/26/18 13:15 EZETIMIBE (Zetia) 10 mg DAILY 09/26/18 15:00 09/28/18 10:02 10 MG Gemfibrozil (Lopid) 600 mg DAILY 09/26/18 15:00 09/28/18 10:02 600 MG Hydralazine HCl (Apresoline Inj) 10 mg PRN Q4HRS PRN 09/26/18 13:15 09/26/18 23:41 10 MG Info (Anti-Coagulation Monitoring By Pharmacy) 1 each PRN DAILY PRN 09/26/18 14:15 Insulin Human Lispro (HumaLOG) 0-9 UNITS TIDWMEALS 09/26/18 17:00 Losartan Potassium (Cozaar) 100 mg DAILY 09/26/18 15:00 09/28/18 10:01 100 MG Metoprolol Succinate (Toprol Xl) 100 mg DAILY 09/26/18 15:00 09/28/18 10:02 100 MG Multivitamins (Thera M Plus) 1 tab DAILY 09/26/18 15:00 09/28/18 10:02 1 TAB Non-Formulary Medication (Testosterone Cypionate ) 1 ml [id number] 09/26/18 13:15 UNV Non-Formulary Medication (Ubidecarenone (Co Q-10)) 200 mg DAILY 09/27/18 09:00 UNV Ondansetron HCl (Zofran) 4 mg PRN Q6HRS PRN 09/26/18 13:15 Pantoprazole Sodium (Protonix) 40 mg DAILYAC 09/26/18 15:00 09/28/18 10:02 40 MG Propafenone HCl (Rythmol) 225 mg BID 09/26/18 21:00 09/27/18 12:08 DC 09/27/18 09:27 225 MG Sodium Chloride 1,000 ml @ 80 mls/hr [id number] 09/27/18 16:30 Tamsulosin HCl (Flomax) 0.4 mg HS 09/26/18 21:00 09/27/18 20:47 0.4 MG Lab Laboratory Tests Test 09/27/18 13:02 09/27/18 16:40 09/27/18 20:44 09/28/18 03:25 Glucose (Fingerstick) 137 mg/dL (70-99) 128 mg/dL (70-99) 133 mg/dL (70-99) White Blood Count 8.2 x10^3/uL (4.0-11.0) Red Blood Count 4.36 x10^6/uL (4.30-5.70) Hemoglobin 13.0 g/dL (13.0-17.5) Hematocrit 40.2 % (39.0-53.0) Mean Corpuscular Volume 92 fL (79-100) Mean Corpuscular Hemoglobin 30 pg (25-35) Mean Corpuscular Hemoglobin Concent 32 g/dL (31-37) Red Cell Distribution Width 16.0 % (11.5-14.5) Platelet Count 312 x10^3/uL (140-400) Neutrophils (%) (Auto) 64 % (31-73) Lymphocytes (%) (Auto) 25 % (24-48) Monocytes (%) (Auto) 9 % (0-9) Eosinophils (%) (Auto) 3 % (0-3) Basophils (%) (Auto) 0 % (0-3) Neutrophils # (Auto) 5.2 x10^3uL (1.8-7.7) Lymphocytes # (Auto) 2.0 x10^3/uL (1.0-4.8) Monocytes # (Auto) 0.7 x10^3/uL (0.0-1.1) Eosinophils # (Auto) 0.2 x10^3/uL (0.0-0.7) Basophils # (Auto) 0.0 x10^3/uL (0.0-0.2) Prothrombin Time 16.1 SEC (11.7-14.0) Prothromb Time International Ratio 1.3 (0.8-1.1) Sodium Level 139 mmol/L (136-145) Potassium Level 4.0 mmol/L (3.5-5.1) Chloride Level 104 mmol/L (98-107) Carbon Dioxide Level 22 mmol/L (21-32) Anion Gap 13 (6-14) Blood Urea Nitrogen 43 mg/dL (8-26) Creatinine 2.1 mg/dL (0.7-1.3) Estimated GFR (Cockcroft-Gault) 30.8 Glucose Level 119 mg/dL (70-99) Calcium Level 9.4 mg/dL (8.5-10.1) Phosphorus Level 3.4 mg/dL (2.6-4.7) Albumin 3.5 g/dL (3.4-5.0) Test 09/28/18 07:12 09/28/18 11:38 Glucose (Fingerstick) 112 mg/dL (70-99) 130 mg/dL (70-99) Results All relevant outside records, renal labs, imaging studies, telemetry/EKG's were reviewed. JOSÉ MIGUEL MUNOZ MD Sep 28, 2018 12:27
[2018-09-28 15:00] VITALS: BP 143/54
--- NOTE | 2018-09-28 16:24 | NUR ---
LARISSA following pt. PT/OT recommends acute rehab. Spoke with pt and in room about acute rehab/SNU, insurance coverage. Pt and agreeable with being screened at [facility] (Discussed the difference, Insurance auth). LARISSA phoned and faxed referral to facilities. Pt admission and acceptance pending. Will continue to follow. ESTEBAN NICOLAS.
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
[2018-09-28 19:59] VITALS: BP 120/75
[2018-09-28] MEDS: TAMSULOSIN 0.4 MG CAP.ER.24H. PO SCH (20:25)
[2018-09-28 23:05] VITALS: BP 165/70
[2018-09-29] VITALS (8 sets, daily range): BP systolic 137–171; BP diastolic 54–78
[2018-09-29 04:31] LABS: BASO % 0 % (0-3); EOS # 0.2 x10^3/uL (0.0-0.7); EOS % 2 % (0-3); HEMATOCRIT 39.3 % (39.0-53.0); HEMOGLOBIN 12.8 g/dL (13.0-17.5); LYMPH # 1.9 x10^3/uL (1.0-4.8); LYMPH % 21 % (24-48); MEAN CORPUSCULAR HEMOGLOBIN 30 pg (25-35); MEAN CORPUSCULAR HGB CONC 33 g/dL (31-37); MEAN CORPUSCULAR VOLUME 93 fL (79-100); MONO # 0.7 x10^3/uL (0.0-1.1); MONO % 8 % (0-9); NEUT % 68 % (31-73); PLATELET COUNT 311 x10^3/uL (140-400); RED BLOOD COUNT 4.25 x10^6/uL (4.30-5.70); RED CELL DISTRIBUTION WIDTH 15.8 % (11.5-14.5); WHITE BLOOD COUNT 8.9 x10^3/uL (4.0-11.0)
[2018-09-29 04:49] LABS: ALBUMIN 3.3 g/dL (3.4-5.0); CALCIUM 9.4 mg/dL (8.5-10.1); CREATININE 1.8 mg/dL (0.7-1.3); GFR 36.8; PHOSPHORUS 3.5 mg/dL (2.6-4.7); POTASSIUM 4.3 mmol/L (3.5-5.1)
[2018-09-29] MEDS: IV NORMAL SALINE 1000ML BAG 1,000 ML IV SCH ×3 (05:43→20:51)
--- NOTE | 2018-09-29 07:09 | PDOC ---
PULMONARY PROGRESS NOTES Subjective no sob, has occ cough, has post nasal drip, no pain Vitals Vital Signs Date Time Temp Pulse Resp B/P (MAP) Pulse Ox O2 Delivery O2 Flow Rate FiO2 09/29/18 03:23 97.5 73 20 155/67 (96) 95 Room Air 97.5 ROS: No Nausea General: Alert, No acute distress HEENT: Other (nc at perrl ) Lungs: Clear Cardiovascular: S1, S2 Abdomen: Soft, Non-tender Neuro Exam: Alert, Oriented Extremities: No Edema Skin: Warm Labs Laboratory Tests Test 09/27/18 13:02 09/27/18 16:40 09/27/18 20:44 09/28/18 03:25 Glucose (Fingerstick) 137 mg/dL (70-99) 128 mg/dL (70-99) 133 mg/dL (70-99) White Blood Count 8.2 x10^3/uL (4.0-11.0) Red Blood Count 4.36 x10^6/uL (4.30-5.70) Hemoglobin 13.0 g/dL (13.0-17.5) Hematocrit 40.2 % (39.0-53.0) Mean Corpuscular Volume 92 fL (79-100) Mean Corpuscular Hemoglobin 30 pg (25-35) Mean Corpuscular Hemoglobin Concent 32 g/dL (31-37) Red Cell Distribution Width 16.0 % (11.5-14.5) Platelet Count 312 x10^3/uL (140-400) Neutrophils (%) (Auto) 64 % (31-73) Lymphocytes (%) (Auto) 25 % (24-48) Monocytes (%) (Auto) 9 % (0-9) Eosinophils (%) (Auto) 3 % (0-3) Basophils (%) (Auto) 0 % (0-3) Neutrophils # (Auto) 5.2 x10^3uL (1.8-7.7) Lymphocytes # (Auto) 2.0 x10^3/uL (1.0-4.8) Monocytes # (Auto) 0.7 x10^3/uL (0.0-1.1) Eosinophils # (Auto) 0.2 x10^3/uL (0.0-0.7) Basophils # (Auto) 0.0 x10^3/uL (0.0-0.2) Prothrombin Time 16.1 SEC (11.7-14.0) Prothromb Time International Ratio 1.3 (0.8-1.1) Sodium Level 139 mmol/L (136-145) Potassium Level 4.0 mmol/L (3.5-5.1) Chloride Level 104 mmol/L (98-107) Carbon Dioxide Level 22 mmol/L (21-32) Anion Gap 13 (6-14) Blood Urea Nitrogen 43 mg/dL (8-26) Creatinine 2.1 mg/dL (0.7-1.3) Estimated GFR (Cockcroft-Gault) 30.8 Glucose Level 119 mg/dL (70-99) Calcium Level 9.4 mg/dL (8.5-10.1) Phosphorus Level 3.4 mg/dL (2.6-4.7) Albumin 3.5 g/dL (3.4-5.0) Test 09/28/18 07:12 09/28/18 11:38 09/28/18 16:53 09/28/18 19:07 Glucose (Fingerstick) 112 mg/dL (70-99) 130 mg/dL (70-99) 113 mg/dL (70-99) 184 mg/dL (70-99) Test 09/29/18 04:00 White Blood Count 8.9 x10^3/uL (4.0-11.0) Red Blood Count 4.25 x10^6/uL (4.30-5.70) Hemoglobin 12.8 g/dL (13.0-17.5) Hematocrit 39.3 % (39.0-53.0) Mean Corpuscular Volume 93 fL (79-100) Mean Corpuscular Hemoglobin 30 pg (25-35) Mean Corpuscular Hemoglobin Concent 33 g/dL (31-37) Red Cell Distribution Width 15.8 % (11.5-14.5) Platelet Count 311 x10^3/uL (140-400) Neutrophils (%) (Auto) 68 % (31-73) Lymphocytes (%) (Auto) 21 % (24-48) Monocytes (%) (Auto) 8 % (0-9) Eosinophils (%) (Auto) 2 % (0-3) Basophils (%) (Auto) 0 % (0-3) Neutrophils # (Auto) 6.0 x10^3uL (1.8-7.7) Lymphocytes # (Auto) 1.9 x10^3/uL (1.0-4.8) Monocytes # (Auto) 0.7 x10^3/uL (0.0-1.1) Eosinophils # (Auto) 0.2 x10^3/uL (0.0-0.7) Basophils # (Auto) 0.0 x10^3/uL (0.0-0.2) Sodium Level 140 mmol/L (136-145) Potassium Level 4.3 mmol/L (3.5-5.1) Chloride Level 106 mmol/L (98-107) Carbon Dioxide Level 21 mmol/L (21-32) Anion Gap 13 (6-14) Blood Urea Nitrogen 42 mg/dL (8-26) Creatinine 1.8 mg/dL (0.7-1.3) Estimated GFR (Cockcroft-Gault) 36.8 Glucose Level 124 mg/dL (70-99) Calcium Level 9.4 mg/dL (8.5-10.1) Phosphorus Level 3.5 mg/dL (2.6-4.7) Albumin 3.3 g/dL (3.4-5.0) Laboratory Tests Test 09/28/18 07:12 09/28/18 11:38 09/28/18 16:53 09/28/18 19:07 Glucose (Fingerstick) 112 mg/dL (70-99) 130 mg/dL (70-99) 113 mg/dL (70-99) 184 mg/dL (70-99) Test 09/29/18 04:00 White Blood Count 8.9 x10^3/uL (4.0-11.0) Red Blood Count 4.25 x10^6/uL (4.30-5.70) Hemoglobin 12.8 g/dL (13.0-17.5) Hematocrit 39.3 % (39.0-53.0) Mean Corpuscular Volume 93 fL (79-100) Mean Corpuscular Hemoglobin 30 pg (25-35) Mean Corpuscular Hemoglobin Concent 33 g/dL (31-37) Red Cell Distribution Width 15.8 % (11.5-14.5) Platelet Count 311 x10^3/uL (140-400) Neutrophils (%) (Auto) 68 % (31-73) Lymphocytes (%) (Auto) 21 % (24-48) Monocytes (%) (Auto) 8 % (0-9) Eosinophils (%) (Auto) 2 % (0-3) Basophils (%) (Auto) 0 % (0-3) Neutrophils # (Auto) 6.0 x10^3uL (1.8-7.7) Lymphocytes # (Auto) 1.9 x10^3/uL (1.0-4.8) Monocytes # (Auto) 0.7 x10^3/uL (0.0-1.1) Eosinophils # (Auto) 0.2 x10^3/uL (0.0-0.7) Basophils # (Auto) 0.0 x10^3/uL (0.0-0.2) Sodium Level 140 mmol/L (136-145) Potassium Level 4.3 mmol/L (3.5-5.1) Chloride Level 106 mmol/L (98-107) Carbon Dioxide Level 21 mmol/L (21-32) Anion Gap 13 (6-14) Blood Urea Nitrogen 42 mg/dL (8-26) Creatinine 1.8 mg/dL (0.7-1.3) Estimated GFR (Cockcroft-Gault) 36.8 Glucose Level 124 mg/dL (70-99) Calcium Level 9.4 mg/dL (8.5-10.1) Phosphorus Level 3.5 mg/dL (2.6-4.7) Albumin 3.3 g/dL (3.4-5.0) Medications Active Scripts Medications Dose Route/Sig Max Daily Dose Days Date Category Toprol Xl (Metoprolol Succinate) 50 Mg Tab.er.24h 100 Mg PO DAILY 09/07/18 Reported Flomax (Tamsulosin Hcl) 0.4 Mg Cap.er.24h 1 Cap PO HS 09/06/18 Reported Allopurinol 100 Mg Tablet 3 Tab PO DAILY 09/06/18 Reported Amlodipine Besylate 5 Mg Tablet 10 Mg PO DAILY 09/06/18 Reported Testosterone Cypionate 200 Mg/1 Ml Vial 1 Ml IM [id number] 12/23/16 Reported Hydrocodone-Apap 10-325 (Hydrocodone Bit/Acetaminophen) 1 Each Tablet 1 Tab PO PRN Q6HRS PRN 12/23/16 Reported Clopidogrel (Clopidogrel Bisulfate) 75 Mg Tablet 1 Tab PO DAILY 12/23/16 Reported Vitamin C (Ascorbic Acid) 1,000 Mg Tablet 1,000 Mg PO DAILY 12/16/15 Reported Co Q-10 (Ubidecarenone) 200 Mg Capsule 200 Mg PO DAILY 12/16/15 Reported Krill Oil 500 Mg Capsule 500 Mg PO 12/16/15 Reported Multi-Vitamin Daily (Multivitamin) 1 Each Tablet 1 Each PO DAILY 12/16/15 Reported Gemfibrozil 600 Mg Tablet 1 Tab PO DAILY 12/16/15 Reported Zetia (Ezetimibe) 10 Mg Tablet 1 Tab PO DAILY 12/16/15 Reported Losartan Potassium 100 Mg Tablet 100 Mg PO DAILY 12/16/15 Reported Nexium Capsule (Esomeprazole Magnesium) 40 Mg Capsule.dr 1 Cap PO DAILY 12/16/15 Reported Impression . IMPRESSION: 1. Acute onset of slurred speech and dysarthria compatible with acute lacunar cerebrovascular accident. 2. Moderate pulmonary hypertension based on the recent echo from August. Ejection fraction was 30%, and pulmonary artery pressure was 50. This is likely secondary pulmonary hypertension related to left ventricular dysfunction. No significant chronic obstructive pulmonary disease by history. No history of chronic thromboembolic disease. The patient does have symptoms suggestive of sleep apnea and would benefit from outpatient sleep study. 3. History of coronary artery disease, status post coronary artery bypass graft. 4. Cardiomyopathy, which is ischemic with an ejection fraction of 30%. 5. Paroxysmal atrial fibrillation. 6. Very minimal asbestos exposure. Radiographically, I do not see any significant interstitial lung disease.' 7. allergic rhinitis Plan . RECOMMENDATIONS: 1. Follow Neurology recommendations. 2. From a pulmonary standpoint, I do recommend an outpatient sleep study to rule out underlying sleep apnea, which may become more obvious during the initial weeks of stroke. 3. Weight loss is advised. 4. No need for any further workup for pulmonary hypertension as it is secondary to his cardiomyopathy. 5. Bronchodilators p.r.n. 6. 6-minute walk test at the time of discharge. 7. Follow Cardiology recommendation. 8. Eliquis for atrial fibrillation per Cardiology. 9. add flonase. Discussed with pt . We will follow along with you. MARGARITO JOHANSEN MD Sep 29, 2018 07:09
[2018-09-29] MEDS: INSULIN LISPRO 300 UNITS/3 ML INSULN.PEN. SQ SCH ×3 (08:00→17:00)
--- NOTE | 2018-09-29 10:05 | PDOC ---
SUBJECTIVE ROS States feeling better , No SOB. Speech Improved OBJECTIVE Vital Signs Vital Signs Date Time Temp Pulse Resp B/P (MAP) Pulse Ox O2 Delivery O2 Flow Rate FiO2 09/29/18 07:00 97.7 63 20 137/62 (87) 96 Room Air 97.7 I & 0 Intake and Output 09/29/18 07:00 Intake Total 250 ml Balance 250 ml Intake Oral 250 ml # Voids 4 PHYSICAL EXAM Physical Exam General appearance NAD HEENT: Right eye blindness. OM moist Neck supple Cardiovascular: S1, S2, RRR Pulmonary: Clear to auscultation bilaterally, No accessory muscle use Abdomen: nontender, and nondistended. Extremities: No edema NeUro=- see exam by neurologist No Rangel, No SP/CVA tenderness DIAGNOSIS/ASSESSMENT Assessment & Plan CKD stage 3 - Stable renal function/eGFR Follows with Dr. Pat Rendon [facility]AS[facility] dw Pt and family at bedside IVF pre, during and post contrast, on Diuretics at home, Holding currently Hold LOsartan if BP in 120's or lower if ok with card Cautious with IVF due to CHF and recent Hospitalization IVF if Angio planned, avoid Vol Overload due to CHF Weakness, dysarthria/2. Acute lacunar infarct; neuro following Improved as per Pt Carotid artery disease; carotid US with concern for right ICA complete occlusion. PAFIB; remains in AFIB with controlled rate. Eliquis for stroke prevention started last month. Chronic systolic/diastolic CHF; appears compensated ICM; LVEF30% per echo CAD: CABGx2 in 2010. Recent MPI Hypertension; controlled Diabetes, II PAD with healing left foot ulcer: s/p percutaneous revascularization 04/2018. Pulmonary HTN; PAP 50 mmHg Discussed with Pt and at bedside COMMENT/RELEVANT DATA Meds Current Medications Medications (Trade) Dose Ordered Sig/Cha Start Time Stop Time Status Last Admin Dose Admin Acetaminophen (Tylenol) 500 mg PRN Q6HRS PRN 09/26/18 13:15 Acetaminophen/ Hydrocodone Bitart (Lortab 10/325) 1 tab PRN Q6HRS PRN 09/26/18 13:15 Allopurinol (Zyloprim) 200 mg DAILY 09/26/18 15:00 09/28/18 10:01 200 MG Amlodipine Besylate (Norvasc) 5 mg DAILY 09/26/18 15:00 09/28/18 10:02 5 MG Apixaban (Eliquis) 5 mg BID 09/26/18 15:00 Future Hold 09/27/18 09:17 5 MG Ascorbic Acid (Vitamin C) 1,000 mg DAILY 09/26/18 15:00 09/28/18 10:02 1,000 MG Aspirin (Kodak Aspirin) 325 mg 1X ONCE 09/26/18 12:30 09/26/18 12:31 DC 09/26/18 13:04 325 MG Aspirin (Ecotrin) 81 mg DAILY 09/27/18 09:00 09/27/18 09:00 DC Atorvastatin Calcium (Lipitor) 20 mg QHS 09/27/18 21:00 09/27/18 21:00 DC Barium Sulfate (Varibar Thin Liquid Apple) 148 gm 1X ONCE 09/27/18 12:00 09/27/18 12:01 DC 09/27/18 13:50 148 GM Clopidogrel Bisulfate (Plavix) 75 mg DAILY 09/26/18 15:00 09/28/18 10:02 75 MG Dextrose (Dextrose 50%-Water Syringe) 12.5 gm PRN Q15MIN PRN 09/26/18 13:15 EZETIMIBE (Zetia) 10 mg DAILY 09/26/18 15:00 09/28/18 10:02 10 MG Fluticasone Propionate (Flonase) 2 spray DAILY 09/29/18 09:00 Gemfibrozil (Lopid) 600 mg DAILY 09/26/18 15:00 09/28/18 10:02 600 MG Hydralazine HCl (Apresoline Inj) 10 mg PRN Q4HRS PRN 09/26/18 13:15 09/26/18 23:41 10 MG Info (Anti-Coagulation Monitoring By Pharmacy) 1 each PRN DAILY PRN 09/26/18 14:15 Insulin Human Lispro (HumaLOG) 0-9 UNITS TIDWMEALS 09/26/18 17:00 Losartan Potassium (Cozaar) 100 mg DAILY 09/26/18 15:00 09/28/18 10:01 100 MG Metoprolol Succinate (Toprol Xl) 100 mg DAILY 09/26/18 15:00 09/28/18 10:02 100 MG Multivitamins (Thera M Plus) 1 tab DAILY 09/26/18 15:00 09/28/18 10:02 1 TAB Non-Formulary Medication (Testosterone Cypionate ) 1 ml [id number] 09/26/18 13:15 UNV Non-Formulary Medication (Ubidecarenone (Co Q-10)) 200 mg DAILY 09/27/18 09:00 UNV Ondansetron HCl (Zofran) 4 mg PRN Q6HRS PRN 09/26/18 13:15 Pantoprazole Sodium (Protonix) 40 mg DAILYAC 09/26/18 15:00 09/28/18 10:02 40 MG Propafenone HCl (Rythmol) 225 mg BID 09/26/18 21:00 09/27/18 12:08 DC 09/27/18 09:27 225 MG Sodium Chloride 1,000 ml @ 80 mls/hr [id number] 09/27/18 16:30 09/29/18 07:44 80 MLS/HR Tamsulosin HCl (Flomax) 0.4 mg HS 09/26/18 21:00 09/28/18 20:25 0.4 MG Lab Laboratory Tests Test 09/28/18 11:38 09/28/18 16:53 09/28/18 19:07 09/29/18 04:00 Glucose (Fingerstick) 130 mg/dL (70-99) 113 mg/dL (70-99) 184 mg/dL (70-99) White Blood Count 8.9 x10^3/uL (4.0-11.0) Red Blood Count 4.25 x10^6/uL (4.30-5.70) Hemoglobin 12.8 g/dL (13.0-17.5) Hematocrit 39.3 % (39.0-53.0) Mean Corpuscular Volume 93 fL (79-100) Mean Corpuscular Hemoglobin 30 pg (25-35) Mean Corpuscular Hemoglobin Concent 33 g/dL (31-37) Red Cell Distribution Width 15.8 % (11.5-14.5) Platelet Count 311 x10^3/uL (140-400) Neutrophils (%) (Auto) 68 % (31-73) Lymphocytes (%) (Auto) 21 % (24-48) Monocytes (%) (Auto) 8 % (0-9) Eosinophils (%) (Auto) 2 % (0-3) Basophils (%) (Auto) 0 % (0-3) Neutrophils # (Auto) 6.0 x10^3uL (1.8-7.7) Lymphocytes # (Auto) 1.9 x10^3/uL (1.0-4.8) Monocytes # (Auto) 0.7 x10^3/uL (0.0-1.1) Eosinophils # (Auto) 0.2 x10^3/uL (0.0-0.7) Basophils # (Auto) 0.0 x10^3/uL (0.0-0.2) Sodium Level 140 mmol/L (136-145) Potassium Level 4.3 mmol/L (3.5-5.1) Chloride Level 106 mmol/L (98-107) Carbon Dioxide Level 21 mmol/L (21-32) Anion Gap 13 (6-14) Blood Urea Nitrogen 42 mg/dL (8-26) Creatinine 1.8 mg/dL (0.7-1.3) Estimated GFR (Cockcroft-Gault) 36.8 Glucose Level 124 mg/dL (70-99) Calcium Level 9.4 mg/dL (8.5-10.1) Phosphorus Level 3.5 mg/dL (2.6-4.7) Albumin 3.3 g/dL (3.4-5.0) Test 09/29/18 07:22 Glucose (Fingerstick) 126 mg/dL (70-99) Results All relevant outside records, renal labs, imaging studies, telemetry/EKG's were reviewed. Other MRI Brain - Impression: 1.7 cm area of acute lacunar ischemia/infarction is seen involving the right aspect of the nicho near the midline. There is no significant surrounding edema or associated mass effect. JOSÉ MIGUEL MUNOZ MD Sep 29, 2018 10:05
--- NOTE | 2018-09-29 10:24 | PDOC ---
PROGRESS NOTES History of Present Illness History of Present Illness Assessment/Plan Assessment/Plan mri head new : 1.7 cm area of acute lacunar ischemia/infarction is seen involving the right aspect of the nicho near the midline. There is no significant surrounding edema or associated mass effect. The Left Ventricle is borderline dilated. Left ventricle systolic function is moderate to severely impaired. The Ejection Fraction is estimated at 30%. c/w cardiomyopathy There is global hypokinesis of the left ventricle. Doppler and Color Flow revealed mild aortic regurgitation. Doppler and Color-flow revealed mild mitral regurgitation. Doppler and Color Flow revealed mild tricuspid regurgitation. The PA pressure was estimated at 50 mmHg. Shallow left nasolabial fold, dysarthria Generalized weakness Paroxysmal A. 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 History N STEMI Diabetes type 2 rather controlled dysphagia pulmonary hypertension, mod-severe [id number] left internal carotid artery stenosis. Absence of flow involving the right internal carotid artery of concern for complete occlusion. PLAN: VASC SURGERY CONSULT possibly change to entresto cardiology consult pulm consult video-swallow Aspirin 325 Home meds reconciled including Plavix and Eliquis Neuro checks q 4 hrs Consult neurology MRI reviewed PT OT Scale insulin okay for ADA diet FULL CODE consult nephrology Resume eliquis after carotid angiogram today CAROTID ANGIOGRAPHY TODAY 44 min pt exam, chart review > 50% of time spent with exam, chart review, pt care coordination COMPLEX medical decision making, risk of cva with angiogram Vitals Vitals Vital Signs Date Time Temp Pulse Resp B/P (MAP) Pulse Ox O2 Delivery O2 Flow Rate FiO2 09/29/18 07:00 97.7 63 20 137/62 (87) 96 Room Air 97.7 Physical Exam General: Alert, Oriented X3, Cooperative, No acute distress Heart: Other (irr) Lungs: Clear Abdomen: Normal bowel sounds, Soft, No tenderness, No hepatosplenomegaly, No masses Extremities: No clubbing, No cyanosis, No edema, Normal pulses, No tenderness/ swelling Skin: No rashes, No breakdown, No significant lesion Labs LABS Laboratory Tests Test 09/28/18 11:38 09/28/18 16:53 09/28/18 19:07 09/29/18 04:00 Glucose (Fingerstick) 130 mg/dL (70-99) 113 mg/dL (70-99) 184 mg/dL (70-99) White Blood Count 8.9 x10^3/uL (4.0-11.0) Red Blood Count 4.25 x10^6/uL (4.30-5.70) Hemoglobin 12.8 g/dL (13.0-17.5) Hematocrit 39.3 % (39.0-53.0) Mean Corpuscular Volume 93 fL (79-100) Mean Corpuscular Hemoglobin 30 pg (25-35) Mean Corpuscular Hemoglobin Concent 33 g/dL (31-37) Red Cell Distribution Width 15.8 % (11.5-14.5) Platelet Count 311 x10^3/uL (140-400) Neutrophils (%) (Auto) 68 % (31-73) Lymphocytes (%) (Auto) 21 % (24-48) Monocytes (%) (Auto) 8 % (0-9) Eosinophils (%) (Auto) 2 % (0-3) Basophils (%) (Auto) 0 % (0-3) Neutrophils # (Auto) 6.0 x10^3uL (1.8-7.7) Lymphocytes # (Auto) 1.9 x10^3/uL (1.0-4.8) Monocytes # (Auto) 0.7 x10^3/uL (0.0-1.1) Eosinophils # (Auto) 0.2 x10^3/uL (0.0-0.7) Basophils # (Auto) 0.0 x10^3/uL (0.0-0.2) Sodium Level 140 mmol/L (136-145) Potassium Level 4.3 mmol/L (3.5-5.1) Chloride Level 106 mmol/L (98-107) Carbon Dioxide Level 21 mmol/L (21-32) Anion Gap 13 (6-14) Blood Urea Nitrogen 42 mg/dL (8-26) Creatinine 1.8 mg/dL (0.7-1.3) Estimated GFR (Cockcroft-Gault) 36.8 Glucose Level 124 mg/dL (70-99) Calcium Level 9.4 mg/dL (8.5-10.1) Phosphorus Level 3.5 mg/dL (2.6-4.7) Albumin 3.3 g/dL (3.4-5.0) Test 09/29/18 07:22 Glucose (Fingerstick) 126 mg/dL (70-99) Assessment and Plan Assessmemt and Plan Problems Medical Problems: (1) Elevated troponin Status: Acute Comment Review of Relevant I have reviewed the following items viviane (where applicable) has been applied. Labs Laboratory Tests Test 09/27/18 13:02 09/27/18 16:40 09/27/18 20:44 09/28/18 03:25 Glucose (Fingerstick) 137 mg/dL (70-99) 128 mg/dL (70-99) 133 mg/dL (70-99) White Blood Count 8.2 x10^3/uL (4.0-11.0) Red Blood Count 4.36 x10^6/uL (4.30-5.70) Hemoglobin 13.0 g/dL (13.0-17.5) Hematocrit 40.2 % (39.0-53.0) Mean Corpuscular Volume 92 fL (79-100) Mean Corpuscular Hemoglobin 30 pg (25-35) Mean Corpuscular Hemoglobin Concent 32 g/dL (31-37) Red Cell Distribution Width 16.0 % (11.5-14.5) Platelet Count 312 x10^3/uL (140-400) Neutrophils (%) (Auto) 64 % (31-73) Lymphocytes (%) (Auto) 25 % (24-48) Monocytes (%) (Auto) 9 % (0-9) Eosinophils (%) (Auto) 3 % (0-3) Basophils (%) (Auto) 0 % (0-3) Neutrophils # (Auto) 5.2 x10^3uL (1.8-7.7) Lymphocytes # (Auto) 2.0 x10^3/uL (1.0-4.8) Monocytes # (Auto) 0.7 x10^3/uL (0.0-1.1) Eosinophils # (Auto) 0.2 x10^3/uL (0.0-0.7) Basophils # (Auto) 0.0 x10^3/uL (0.0-0.2) Prothrombin Time 16.1 SEC (11.7-14.0) Prothromb Time International Ratio 1.3 (0.8-1.1) Sodium Level 139 mmol/L (136-145) Potassium Level 4.0 mmol/L (3.5-5.1) Chloride Level 104 mmol/L (98-107) Carbon Dioxide Level 22 mmol/L (21-32) Anion Gap 13 (6-14) Blood Urea Nitrogen 43 mg/dL (8-26) Creatinine 2.1 mg/dL (0.7-1.3) Estimated GFR (Cockcroft-Gault) 30.8 Glucose Level 119 mg/dL (70-99) Calcium Level 9.4 mg/dL (8.5-10.1) Phosphorus Level 3.4 mg/dL (2.6-4.7) Albumin 3.5 g/dL (3.4-5.0) Test 09/28/18 07:12 09/28/18 11:38 09/28/18 16:53 09/28/18 19:07 Glucose (Fingerstick) 112 mg/dL (70-99) 130 mg/dL (70-99) 113 mg/dL (70-99) 184 mg/dL (70-99) Test 09/29/18 04:00 09/29/18 07:22 White Blood Count 8.9 x10^3/uL (4.0-11.0) Red Blood Count 4.25 x10^6/uL (4.30-5.70) Hemoglobin 12.8 g/dL (13.0-17.5) Hematocrit 39.3 % (39.0-53.0) Mean Corpuscular Volume 93 fL (79-100) Mean Corpuscular Hemoglobin 30 pg (25-35) Mean Corpuscular Hemoglobin Concent 33 g/dL (31-37) Red Cell Distribution Width 15.8 % (11.5-14.5) Platelet Count 311 x10^3/uL (140-400) Neutrophils (%) (Auto) 68 % (31-73) Lymphocytes (%) (Auto) 21 % (24-48) Monocytes (%) (Auto) 8 % (0-9) Eosinophils (%) (Auto) 2 % (0-3) Basophils (%) (Auto) 0 % (0-3) Neutrophils # (Auto) 6.0 x10^3uL (1.8-7.7) Lymphocytes # (Auto) 1.9 x10^3/uL (1.0-4.8) Monocytes # (Auto) 0.7 x10^3/uL (0.0-1.1) Eosinophils # (Auto) 0.2 x10^3/uL (0.0-0.7) Basophils # (Auto) 0.0 x10^3/uL (0.0-0.2) Sodium Level 140 mmol/L (136-145) Potassium Level 4.3 mmol/L (3.5-5.1) Chloride Level 106 mmol/L (98-107) Carbon Dioxide Level 21 mmol/L (21-32) Anion Gap 13 (6-14) Blood Urea Nitrogen 42 mg/dL (8-26) Creatinine 1.8 mg/dL (0.7-1.3) Estimated GFR (Cockcroft-Gault) 36.8 Glucose Level 124 mg/dL (70-99) Calcium Level 9.4 mg/dL (8.5-10.1) Phosphorus Level 3.5 mg/dL (2.6-4.7) Albumin 3.3 g/dL (3.4-5.0) Glucose (Fingerstick) 126 mg/dL (70-99) Laboratory Tests Test 09/28/18 11:38 09/28/18 16:53 09/28/18 19:07 09/29/18 04:00 Glucose (Fingerstick) 130 mg/dL (70-99) 113 mg/dL (70-99) 184 mg/dL (70-99) White Blood Count 8.9 x10^3/uL (4.0-11.0) Red Blood Count 4.25 x10^6/uL (4.30-5.70) Hemoglobin 12.8 g/dL (13.0-17.5) Hematocrit 39.3 % (39.0-53.0) Mean Corpuscular Volume 93 fL (79-100) Mean Corpuscular Hemoglobin 30 pg (25-35) Mean Corpuscular Hemoglobin Concent 33 g/dL (31-37) Red Cell Distribution Width 15.8 % (11.5-14.5) Platelet Count 311 x10^3/uL (140-400) Neutrophils (%) (Auto) 68 % (31-73) Lymphocytes (%) (Auto) 21 % (24-48) Monocytes (%) (Auto) 8 % (0-9) Eosinophils (%) (Auto) 2 % (0-3) Basophils (%) (Auto) 0 % (0-3) Neutrophils # (Auto) 6.0 x10^3uL (1.8-7.7) Lymphocytes # (Auto) 1.9 x10^3/uL (1.0-4.8) Monocytes # (Auto) 0.7 x10^3/uL (0.0-1.1) Eosinophils # (Auto) 0.2 x10^3/uL (0.0-0.7) Basophils # (Auto) 0.0 x10^3/uL (0.0-0.2) Sodium Level 140 mmol/L (136-145) Potassium Level 4.3 mmol/L (3.5-5.1) Chloride Level 106 mmol/L (98-107) Carbon Dioxide Level 21 mmol/L (21-32) Anion Gap 13 (6-14) Blood Urea Nitrogen 42 mg/dL (8-26) Creatinine 1.8 mg/dL (0.7-1.3) Estimated GFR (Cockcroft-Gault) 36.8 Glucose Level 124 mg/dL (70-99) Calcium Level 9.4 mg/dL (8.5-10.1) Phosphorus Level 3.5 mg/dL (2.6-4.7) Albumin 3.3 g/dL (3.4-5.0) Test 09/29/18 07:22 Glucose (Fingerstick) 126 mg/dL (70-99) Medications Current Medications Sodium Chloride 1,000 ml @ 1,000 mls/hr 1X ONCE IV Last administered on at 12:21; Start 09/26/18 at 11:45; Stop 09/26/18 at 12:44; Status DC Aspirin (Kodak Aspirin) 325 mg 1X ONCE PO Last administered on 09/26/18at 13:04 ; Start 09/26/18 at 12:30; Stop 09/26/18 at 12:31; Status DC Ondansetron HCl (Zofran) 4 mg PRN Q8HRS PRN IV NAUSEA/VOMITING; Start 09/26/18 at 12:45; Stop 09/26/18 at 13:05; Status DC Insulin Human Lispro (HumaLOG) 0-5 UNITS TIDWMEALS SQ ; Start 09/26/18 at 17:00; Status Cancel Dextrose (Dextrose 50%-Water Syringe) 12.5 gm PRN Q15MIN PRN IV SEE COMMENTS; Start 09/26/18 at 12:45; Status Cancel Ondansetron HCl (Zofran) 4 mg PRN Q6HRS PRN IV NAUSEA/VOMITING; Start 09/26/18 at 13:15 Acetaminophen (Tylenol) 500 mg PRN Q6HRS PRN PO MILD PAIN / TEMP; Start at 13:15 Insulin Human Lispro (HumaLOG) 0-9 UNITS TIDWMEALS SQ ; Start 09/26/18 at 17:00 Dextrose (Dextrose 50%-Water Syringe) 12.5 gm PRN Q15MIN PRN IV SEE COMMENTS; Start 09/26/18 at 13:15 Hydralazine HCl (Apresoline Inj) 10 mg PRN Q4HRS PRN IVP ELEVATED BP, SEE COMMENTS Last administered on 09/26/18at 23:41; Start 09/26/18 at 13:15 Allopurinol (Zyloprim) 200 mg DAILY PO Last administered on 09/28/18at 10:01; Start 09/26/18 at 15:00 Amlodipine Besylate (Norvasc) 5 mg DAILY PO Last administered on 09/28/18at 10: 02; Start 09/26/18 at 15:00 Aspirin (Ecotrin) 81 mg DAILY PO ; Start 09/27/18 at 09:00; Stop 09/27/18 at 09: 00; Status DC Clopidogrel Bisulfate (Plavix) 75 mg DAILY PO Last administered on 09/28/18at 10 :02; Start 09/26/18 at 15:00 EZETIMIBE (Zetia) 10 mg DAILY PO Last administered on 09/28/18at 10:02; Start at 15:00 Gemfibrozil (Lopid) 600 mg DAILY PO Last administered on 09/28/18at 10:02; Start 09/26/18 at 15:00 Acetaminophen/ Hydrocodone Bitart (Lortab 10/325) 1 tab PRN Q6HRS PRN PO MODERATE-SEVERE PAIN; Start 09/26/18 at 13:15 Metoprolol Succinate (Toprol Xl) 100 mg DAILY PO Last administered on 10:02; Start 09/26/18 at 15:00 Tamsulosin HCl (Flomax) 0.4 mg HS PO Last administered on 09/28/18at 20:25; Start 09/26/18 at 21:00 Ascorbic Acid (Vitamin C) 1,000 mg DAILY PO Last administered on 09/28/18 10: 02; Start 09/26/18 at 15:00 Pantoprazole Sodium (Protonix) 40 mg DAILYAC PO Last administered on 09/28/18 10:02; Start 09/26/18 at 15:00 Losartan Potassium (Cozaar) 100 mg DAILY PO Last administered on 09/28/18 10: 01; Start 09/26/18 at 15:00 Multivitamins (Thera M Plus) 1 tab DAILY PO Last administered on 09/28/18 10: 02; Start 09/26/18 at 15:00 Propafenone HCl (Rythmol) 225 mg BID PO Last administered on 09/27/18at 09:27; Start 09/26/18 at 21:00; Stop 09/27/18 at 12:08; Status DC Non-Formulary Medication (Testosterone Cypionate ) 1 ml [id number] IM ; Start at 13:15; Status UNV Non-Formulary Medication (Ubidecarenone (Co Q-10)) 200 mg DAILY PO ; Start 09/27 at 09:00; Status UNV Apixaban (Eliquis) 5 mg BID PO Last administered on 09/27/18at 09:17; Start 09/26 at 15:00; Status Future Hold Info (Anti-Coagulation Monitoring By Pharmacy) 1 each PRN DAILY PRN MC SEE COMMENTS; Start 09/26/18 at 14:15 Atorvastatin Calcium (Lipitor) 20 mg QHS PO ; Start 09/27/18 at 21:00; Stop 04/07 at 21:00; Status DC Barium Sulfate (Varibar Thin Liquid Apple) 148 gm 1X ONCE PO Last administered on 09/27/18at 13:50; Start 09/27/18 at 12:00; Stop 09/27/18 at 12:01 ; Status DC Sodium Chloride 1,000 ml @ 80 mls/hr [id number] IV Last administered on at 07:44; Start 09/27/18 at 16:30 Fluticasone Propionate (Flonase) 2 spray DAILY NS ; Start 09/29/18 at 09:00 Active Scripts Active Reported Toprol Xl (Metoprolol Succinate) 50 Mg Tab.er.24h 100 Mg PO DAILY Flomax (Tamsulosin Hcl) 0.4 Mg Cap.er.24h 1 Cap PO HS Allopurinol 100 Mg Tablet 3 Tab PO DAILY Amlodipine Besylate 5 Mg Tablet 10 Mg PO DAILY Testosterone Cypionate 200 Mg/1 Ml Vial 1 Ml IM [id number] Hydrocodone-Apap 10-325 (Hydrocodone Bit/Acetaminophen) 1 Each Tablet 1 Tab PO PRN Q6HRS PRN Clopidogrel (Clopidogrel Bisulfate) 75 Mg Tablet 1 Tab PO DAILY Vitamin C (Ascorbic Acid) 1,000 Mg Tablet 1,000 Mg PO DAILY Co Q-10 (Ubidecarenone) 200 Mg Capsule 200 Mg PO DAILY Krill Oil 500 Mg Capsule 500 Mg PO Multi-Vitamin Daily (Multivitamin) 1 Each Tablet 1 Each PO DAILY Gemfibrozil 600 Mg Tablet 1 Tab PO DAILY Zetia (Ezetimibe) 10 Mg Tablet 1 Tab PO DAILY Losartan Potassium 100 Mg Tablet 100 Mg PO DAILY Nexium Capsule (Esomeprazole Magnesium) 40 Mg Capsule. 1 Cap PO DAILY Vitals/I & O Vital Sign - Last 24 Hours 09/28/18 09/28/18 09/28/18 09/28/18 11:00 15:00 19:59 20:00 Temp 98.0 98.0 97.8 98.0 98.0 97.8 Pulse 60 65 61 Resp 18 18 20 B/P (MAP) 144/61 (88) 143/54 (83) 120/75 (90) Pulse Ox 97 98 97 O2 Delivery Room Air Room Air Room Air Room Air 09/28/18 09/29/18 09/29/18 23:05 03:23 07:00 Temp 97.5 97.5 97.7 97.5 97.5 97.7 Pulse 60 73 63 Resp 20 20 20 B/P (MAP) 165/70 (101) 155/67 (96) 137/62 (87) Pulse Ox 97 95 96 O2 Delivery Room Air Room Air Room Air Intake and Output 09/28/18 09/28/18 09/29/18 15:00 23:00 07:00 Intake Total 250 ml Balance 250 ml KAREN REYES MD Sep 29, 2018 10:24
--- NOTE | 2018-09-29 11:35 | NUR ---
Telemetry rhythm SB with 1 degree AV block per charge FIDENCIO Gramajo Addendum: 09/29/18 at 1136 by PRASANNA FRANCOIS RN Above charting wrong patient
--- NOTE | 2018-09-29 11:38 | NUR ---
Telemetry rhythm A flutter per charge nurse-FIDENCIO Hull
--- NOTE | 2018-09-29 12:25 | PDOC ---
KEENAN LORD SURVEYOR INSTRUMENT ASSISTANT 09/29/18 1225: CARDIO Progress Notes Date and Time Date of Service 09/29/2018 Time of Evaluation 1200 Subjective Subjective: No Chest Pain, No shortness of breath, No Palpitations, Other ( speech improved) Vitals Vitals Vital Signs Date Time Temp Pulse Resp B/P (MAP) Pulse Ox O2 Delivery O2 Flow Rate FiO2 09/29/18 11:00 97.6 80 18 137/59 (85) 97 Room Air 97.6 Weight Weight [ ] Input and Output Intake and Output Intake and Output 09/29/18 07:00 Intake Total 250 ml Balance 250 ml Intake Oral 250 ml # Voids 4 Laboratory Labs Laboratory Tests Test 09/28/18 16:53 09/28/18 19:07 09/29/18 04:00 09/29/18 07:22 Glucose (Fingerstick) 113 mg/dL (70-99) 184 mg/dL (70-99) 126 mg/dL (70-99) White Blood Count 8.9 x10^3/uL (4.0-11.0) Red Blood Count 4.25 x10^6/uL (4.30-5.70) Hemoglobin 12.8 g/dL (13.0-17.5) Hematocrit 39.3 % (39.0-53.0) Mean Corpuscular Volume 93 fL (79-100) Mean Corpuscular Hemoglobin 30 pg (25-35) Mean Corpuscular Hemoglobin Concent 33 g/dL (31-37) Red Cell Distribution Width 15.8 % (11.5-14.5) Platelet Count 311 x10^3/uL (140-400) Neutrophils (%) (Auto) 68 % (31-73) Lymphocytes (%) (Auto) 21 % (24-48) Monocytes (%) (Auto) 8 % (0-9) Eosinophils (%) (Auto) 2 % (0-3) Basophils (%) (Auto) 0 % (0-3) Neutrophils # (Auto) 6.0 x10^3uL (1.8-7.7) Lymphocytes # (Auto) 1.9 x10^3/uL (1.0-4.8) Monocytes # (Auto) 0.7 x10^3/uL (0.0-1.1) Eosinophils # (Auto) 0.2 x10^3/uL (0.0-0.7) Basophils # (Auto) 0.0 x10^3/uL (0.0-0.2) Sodium Level 140 mmol/L (136-145) Potassium Level 4.3 mmol/L (3.5-5.1) Chloride Level 106 mmol/L (98-107) Carbon Dioxide Level 21 mmol/L (21-32) Anion Gap 13 (6-14) Blood Urea Nitrogen 42 mg/dL (8-26) Creatinine 1.8 mg/dL (0.7-1.3) Estimated GFR (Cockcroft-Gault) 36.8 Glucose Level 124 mg/dL (70-99) Calcium Level 9.4 mg/dL (8.5-10.1) Phosphorus Level 3.5 mg/dL (2.6-4.7) Albumin 3.3 g/dL (3.4-5.0) Test 09/29/18 11:23 Glucose (Fingerstick) 122 mg/dL (70-99) Physical Exam HEENT: Neck Supple W Full Motion Chest: Symmetric LUNGS: Clear to Auscultation Heart: S1S2, irregularly irregular (AFIB) Abdomen: Soft N/T Extremities: No Edema, No Calf Tenderness Neurology: alert, oriented, follow commands Assessment Assessment 1. Weakness, dysarthria; improved 2. Acute stroke: doubt cardioembolic, suspect due to carotid disease. 3. Carotid artery disease; right ICA stenosis 4. PAFIB; AFIB with controlled rate. 5. Chronic systolic/diastolic CHF; compensated 6. ICM; LVEF30% per echo 8. CAD: CABGx2 9. DANNA on CKD; IVF F ongoing. nephrology following 10. Hypertension; controlled 11. Hyperlipidemia; intolerant to statin and on gemfibrozil 12. Diabetes, II Recommendations 1. Continue plavix. Resume eliquis after carotid angiogram today 2. Continue with secondary prevention measures. He would be a candidate for PCSK9 inhibitor 3. Supportive care. 4. Follow up on October 27 at 1145 AM with RONALDO Lopez MD 09/29/18 [id number]: CARDIO Progress Notes Plan Plan Pt. seen and examined. Agree with above WASHER CARCASS note. Spoke to Dr. Baltazar. Plan for restarting eliquis if no immediate plans for [facility]. Supportive care. Thanks. KEENAN LORD APRN Sep 29, 2018 12:25 RONALDO DANIEL MD Sep 29, 2018 17:31
--- NOTE | 2018-09-29 13:04 | NUR ---
SW following pt. Pt has been accepted at [facility] pending insurance approval. Spoke with RN and pt is having a procedure done today. Will continue to follow.
[2018-09-29] MEDS ORDERED: LIDOCAINE WITH 8.4% SOD BICARB 3 ML DISP.SYRIN. ONE (13:12)
[2018-09-29] MEDS ORDERED: IOHEXOL 240 MG/ML 50ML VIAL. ONE (13:12)
[2018-09-29] MEDS ORDERED: HEPARIN for ARTERIAL LINE 1,500 ML ONE (13:12)
--- NOTE | 2018-09-29 13:15 | NUR ---
To IR per bed accompanied by spouse
[2018-09-29] MEDS ORDERED: fentaNYL PF VIAL 100 MCG/2 ML VIAL ONE (13:28)
[2018-09-29] MEDS ORDERED: MIDAZOLAM HCL/PF 2 MG/2 ML VIAL. ONE (13:28)
[2018-09-29] MEDS ORDERED: IOHEXOL 240 MG/ML 100 ML VIAL. ONE (13:41)
[2018-09-29] MEDS ORDERED: IODIXANOL 320 MG/ML 100 ML VIAL. ONE (13:41)
[2018-09-29] MEDS ORDERED: MIDAZOLAM HCL/PF 2 MG/2 ML VIAL. IV ONE (14:00)
[2018-09-29] MEDS ORDERED: IOHEXOL 240 MG/ML 50ML VIAL. IART ONE (14:00)
[2018-09-29] MEDS ORDERED: LIDOCAINE WITH 8.4% SOD BICARB 3 ML DISP.SYRIN. IJ ONE (14:00)
[2018-09-29] MEDS ORDERED: IOHEXOL 240 MG/ML 100 ML VIAL. IJ ONE (14:00)
[2018-09-29] MEDS ORDERED: fentaNYL PF VIAL 100 MCG/2 ML VIAL IV ONE (14:00)
--- NOTE | 2018-09-29 14:35 | NUR ---
Returned from procedure per bed, alert/oriented, right groin dressing clean, dry & intact, no bleeding from site, area soft, instructed pt/family to be flat for next 3 hours, HOB elevated 15 degrees, ice chips given, call light in reach Addendum: 09/29/18 at 1518 by PRASANNA FRANCOIS RN Denies pain or discomfort
[2018-09-29] MEDS ORDERED: CONTRAST GIVEN. MC PRN (14:45)
--- NOTE | 2018-09-29 14:45 | NUR ---
Spoke with Barbara Man from [facility] for possible transfer
--- NOTE | 2018-09-29 15:00 | NUR ---
Groin remains soft & pliable without drainage, dressing clean dry & intact
--- NOTE | 2018-09-29 16:05 | NUR ---
Groin dressing clean, dry & intact, area soft & pliable, denies pain, family at bedside
--- NOTE | 2018-09-29 16:34 | NUR ---
SW following pt. Spoke with pt and in room. reported they have agreed to go to [facility] after discussing with both facilities. Insurance has approved SNU at [facility]. ESTEBAN RN. Packet on chart.
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
--- NOTE | 2018-09-29 18:04 | NUR ---
Up to bedside after ambulating to bathroom with walker & 1 person assist, slightly unsteady gait. Dressing to right groin soft & pliable, dressing remains clean, dry & intact, denies pain, family at bedside
--- NOTE | 2018-09-29 18:23 | PDOC ---
Provider Note Provider Note AF VSS awake and alert sitting in a chair eating dinner no focal neuro deficits A/P 78 year old male with right acute stroke in the nicho. Right carotid angiogram done today shows complete occlusion of the right internal carotid artery. No surgical intervention needed. Will follow asymptomatic left ICA moderate stenosis with a carotid duplex scan in 6 months, will arrange follow up. May resume plavix and eliquis. YANDEL WEBB MD Sep 29, 2018 18:23
[2018-09-29] MEDS: FLUTICASONE 50MCG/NASAL SPRAY 16GM BOTTLE. NS SCH (18:36)
[2018-09-29] MEDS: PANTOPRAZOLE 40 MG TABLET.DR. PO SCH (18:37)
[2018-09-29] MEDS: ALLOPURINOL 100 MG TABLET. PO SCH (18:38)
[2018-09-29] MEDS: EZETIMIBE 10 MG TABLET. PO SCH (18:38)
[2018-09-29] MEDS: amLODIPine BESYLATE 5 MG TABLET PO SCH (18:39)
[2018-09-29] MEDS: ASCORBIC ACID 500 MG TABLET PO SCH (18:39)
[2018-09-29] MEDS: CLOPIDOGREL BISULFATE 75 MG TABLET PO SCH (18:40)
[2018-09-29] MEDS: MULTIVITAMIN with MINERAL TABLET. PO SCH (18:40)
[2018-09-29] MEDS: LOSARTAN POTASSIUM 50 MG TABLET. PO SCH (18:40)
[2018-09-29] MEDS: GEMFIBROZIL 600 MG TABLET. PO SCH (18:40)
[2018-09-29] MEDS: METOPROLOL SUCC 24HR ER 50 MG TAB.ER.24H. PO SCH (18:41)
--- NOTE | 2018-09-29 20:00 | NUR ---
right groin area soft dressing clean dry and intact
[2018-09-29] MEDS: TAMSULOSIN 0.4 MG CAP.ER.24H. PO SCH (20:50)
[2018-09-29] MEDS: APIXABAN 5 MG TABLET. PO SCH (20:50)
[2018-09-30 03:54] VITALS: BP 106/61
[2018-09-30 04:53] LABS: ALBUMIN 3.4 g/dL (3.4-5.0); CALCIUM 9.5 mg/dL (8.5-10.1); CREATININE 1.6 mg/dL (0.7-1.3); GFR 42.1; PHOSPHORUS 3.6 mg/dL (2.6-4.7); POTASSIUM 4.3 mmol/L (3.5-5.1)
--- NOTE | 2018-09-30 05:17 | NUR ---
right groin area dressing clean dry and intact remain soft
[2018-09-30 07:00] VITALS: BP 160/63
[2018-09-30] MEDS: INSULIN LISPRO 300 UNITS/3 ML INSULN.PEN. SQ SCH ×3 (07:40→17:00)
[2018-09-30] MEDS: GEMFIBROZIL 600 MG TABLET. PO SCH (07:54)
[2018-09-30] MEDS: PANTOPRAZOLE 40 MG TABLET.DR. PO SCH (07:54)
[2018-09-30] MEDS: METOPROLOL SUCC 24HR ER 50 MG TAB.ER.24H. PO SCH (07:55)
[2018-09-30] MEDS: LOSARTAN POTASSIUM 50 MG TABLET. PO SCH (07:55)
[2018-09-30] MEDS: amLODIPine BESYLATE 5 MG TABLET PO SCH (07:56)
[2018-09-30] MEDS: EZETIMIBE 10 MG TABLET. PO SCH (07:56)
[2018-09-30] MEDS: MULTIVITAMIN with MINERAL TABLET. PO SCH (07:56)
[2018-09-30] MEDS: CLOPIDOGREL BISULFATE 75 MG TABLET PO SCH (07:56)
[2018-09-30] MEDS: ASCORBIC ACID 500 MG TABLET PO SCH (07:56)
[2018-09-30] MEDS: APIXABAN 5 MG TABLET. PO SCH ×2 (07:56→22:03)
[2018-09-30] MEDS: ALLOPURINOL 100 MG TABLET. PO SCH (07:57)
[2018-09-30] MEDS: FLUTICASONE 50MCG/NASAL SPRAY 16GM BOTTLE. NS SCH (08:04)
--- NOTE | 2018-09-30 08:17 | PDOC ---
PULMONARY PROGRESS NOTES Subjective no sob, has occ cough, has nasal congestion, no pain Vitals Vital Signs Date Time Temp Pulse Resp B/P (MAP) Pulse Ox O2 Delivery O2 Flow Rate FiO2 09/30/18 07:56 60 160/63 09/30/18 07:00 97.9 16 98 Room Air 97.9 09/29/18 14:14 2.0 ROS: No Nausea General: Alert, No acute distress HEENT: Other (nc at perrl ) Lungs: Clear Cardiovascular: S1, S2 Abdomen: Soft, Non-tender Neuro Exam: Alert, Oriented Extremities: No Edema Skin: Warm Labs Laboratory Tests Test 09/28/18 11:38 09/28/18 16:53 09/28/18 19:07 09/29/18 04:00 Glucose (Fingerstick) 130 mg/dL (70-99) 113 mg/dL (70-99) 184 mg/dL (70-99) White Blood Count 8.9 x10^3/uL (4.0-11.0) Red Blood Count 4.25 x10^6/uL (4.30-5.70) Hemoglobin 12.8 g/dL (13.0-17.5) Hematocrit 39.3 % (39.0-53.0) Mean Corpuscular Volume 93 fL (79-100) Mean Corpuscular Hemoglobin 30 pg (25-35) Mean Corpuscular Hemoglobin Concent 33 g/dL (31-37) Red Cell Distribution Width 15.8 % (11.5-14.5) Platelet Count 311 x10^3/uL (140-400) Neutrophils (%) (Auto) 68 % (31-73) Lymphocytes (%) (Auto) 21 % (24-48) Monocytes (%) (Auto) 8 % (0-9) Eosinophils (%) (Auto) 2 % (0-3) Basophils (%) (Auto) 0 % (0-3) Neutrophils # (Auto) 6.0 x10^3uL (1.8-7.7) Lymphocytes # (Auto) 1.9 x10^3/uL (1.0-4.8) Monocytes # (Auto) 0.7 x10^3/uL (0.0-1.1) Eosinophils # (Auto) 0.2 x10^3/uL (0.0-0.7) Basophils # (Auto) 0.0 x10^3/uL (0.0-0.2) Sodium Level 140 mmol/L (136-145) Potassium Level 4.3 mmol/L (3.5-5.1) Chloride Level 106 mmol/L (98-107) Carbon Dioxide Level 21 mmol/L (21-32) Anion Gap 13 (6-14) Blood Urea Nitrogen 42 mg/dL (8-26) Creatinine 1.8 mg/dL (0.7-1.3) Estimated GFR (Cockcroft-Gault) 36.8 Glucose Level 124 mg/dL (70-99) Calcium Level 9.4 mg/dL (8.5-10.1) Phosphorus Level 3.5 mg/dL (2.6-4.7) Albumin 3.3 g/dL (3.4-5.0) Test 09/29/18 07:22 09/29/18 11:23 09/29/18 16:43 09/29/18 22:00 Glucose (Fingerstick) 126 mg/dL (70-99) 122 mg/dL (70-99) 80 mg/dL (70-99) 134 mg/dL (70-99) Test 09/30/18 03:25 09/30/18 07:20 Sodium Level 141 mmol/L (136-145) Potassium Level 4.3 mmol/L (3.5-5.1) Chloride Level 107 mmol/L (98-107) Carbon Dioxide Level 21 mmol/L (21-32) Anion Gap 13 (6-14) Blood Urea Nitrogen 37 mg/dL (8-26) Creatinine 1.6 mg/dL (0.7-1.3) Estimated GFR (Cockcroft-Gault) 42.1 Glucose Level 111 mg/dL (70-99) Calcium Level 9.5 mg/dL (8.5-10.1) Phosphorus Level 3.6 mg/dL (2.6-4.7) Albumin 3.4 g/dL (3.4-5.0) Glucose (Fingerstick) 102 mg/dL (70-99) Laboratory Tests Test 09/29/18 11:23 09/29/18 16:43 09/29/18 22:00 09/30/18 03:25 Glucose (Fingerstick) 122 mg/dL (70-99) 80 mg/dL (70-99) 134 mg/dL (70-99) Sodium Level 141 mmol/L (136-145) Potassium Level 4.3 mmol/L (3.5-5.1) Chloride Level 107 mmol/L (98-107) Carbon Dioxide Level 21 mmol/L (21-32) Anion Gap 13 (6-14) Blood Urea Nitrogen 37 mg/dL (8-26) Creatinine 1.6 mg/dL (0.7-1.3) Estimated GFR (Cockcroft-Gault) 42.1 Glucose Level 111 mg/dL (70-99) Calcium Level 9.5 mg/dL (8.5-10.1) Phosphorus Level 3.6 mg/dL (2.6-4.7) Albumin 3.4 g/dL (3.4-5.0) Test 09/30/18 07:20 Glucose (Fingerstick) 102 mg/dL (70-99) Medications Active Scripts Medications Dose Route/Sig Max Daily Dose Days Date Category Toprol Xl (Metoprolol Succinate) 50 Mg Tab.er.24h 100 Mg PO DAILY 09/07/18 Reported Flomax (Tamsulosin Hcl) 0.4 Mg Cap.er.24h 1 Cap PO HS 09/06/18 Reported Allopurinol 100 Mg Tablet 3 Tab PO DAILY 09/06/18 Reported Amlodipine Besylate 5 Mg Tablet 10 Mg PO DAILY 09/06/18 Reported Testosterone Cypionate 200 Mg/1 Ml Vial 1 Ml IM [id number] 12/23/16 Reported Hydrocodone-Apap 10-325 (Hydrocodone Bit/Acetaminophen) 1 Each Tablet 1 Tab PO PRN Q6HRS PRN 12/23/16 Reported Clopidogrel (Clopidogrel Bisulfate) 75 Mg Tablet 1 Tab PO DAILY 12/23/16 Reported Vitamin C (Ascorbic Acid) 1,000 Mg Tablet 1,000 Mg PO DAILY 12/16/15 Reported Co Q-10 (Ubidecarenone) 200 Mg Capsule 200 Mg PO DAILY 12/16/15 Reported Krill Oil 500 Mg Capsule 500 Mg PO 12/16/15 Reported Multi-Vitamin Daily (Multivitamin) 1 Each Tablet 1 Each PO DAILY 12/16/15 Reported Gemfibrozil 600 Mg Tablet 1 Tab PO DAILY 12/16/15 Reported Zetia (Ezetimibe) 10 Mg Tablet 1 Tab PO DAILY 12/16/15 Reported Losartan Potassium 100 Mg Tablet 100 Mg PO DAILY 12/16/15 Reported Nexium Capsule (Esomeprazole Magnesium) 40 Mg Capsule. 1 Cap PO DAILY 12/16/15 Reported Impression . IMPRESSION: 1. Acute onset of slurred speech and dysarthria compatible with acute lacunar cerebrovascular accident. 2. Moderate pulmonary hypertension based on the recent echo from August. Ejection fraction was 30%, and pulmonary artery pressure was 50. This is likely secondary pulmonary hypertension related to left ventricular dysfunction. No significant chronic obstructive pulmonary disease by history. No history of chronic thromboembolic disease. The patient does have symptoms suggestive of sleep apnea and would benefit from outpatient sleep study. 3. History of coronary artery disease, status post coronary artery bypass graft. 4. Cardiomyopathy, which is ischemic with an ejection fraction of 30%. 5. Paroxysmal atrial fibrillation. 6. Very minimal asbestos exposure. Radiographically, I do not see any significant interstitial lung disease.' 7. allergic rhinitis Plan . RECOMMENDATIONS: 1. Follow Neurology recommendations. 2. From a pulmonary standpoint, I do recommend an outpatient sleep study to rule out underlying sleep apnea, which may become more obvious during the initial weeks of stroke. 3. Weight loss is advised. 4. No need for any further workup for pulmonary hypertension as it is secondary to his cardiomyopathy. 5. Bronchodilators p.r.n. 6. 6-minute walk test at the time of discharge. 7. Follow Cardiology recommendation. 8. Eliquis for atrial fibrillation per Cardiology. 9. cont flonase. Discussed with pt . We will follow along with you. MARGARITO JOHANSEN MD Sep 30, 2018 08:17
--- NOTE | 2018-09-30 09:42 | PDOC ---
PROGRESS NOTES History of Present Illness History of Present Illness Assessment/Plan Assessment/Plan mri head new : 1.7 cm area of acute lacunar ischemia/infarction is seen involving the right aspect of the nicho near the midline. There is no significant surrounding edema or associated mass effect. The Left Ventricle is borderline dilated. Left ventricle systolic function is moderate to severely impaired. The Ejection Fraction is estimated at 30%. c/w cardiomyopathy There is global hypokinesis of the left ventricle. Doppler and Color Flow revealed mild aortic regurgitation. Doppler and Color-flow revealed mild mitral regurgitation. Doppler and Color Flow revealed mild tricuspid regurgitation. The PA pressure was estimated at 50 mmHg. Shallow left nasolabial fold, dysarthria Generalized weakness Paroxysmal A. 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 History N STEMI Diabetes type 2 rather controlled dysphagia pulmonary hypertension, mod-severe [id number] left internal carotid artery stenosis. Absence of flow involving the right internal carotid artery of concern for complete occlusion. PLAN: VASC SURGERY CONSULT Right carotid angiogram done 09/29 shows complete occlusion of the right internal carotid artery. No surgical intervention needed. Will follow asymptomatic left ICA moderate stenosis with a carotid duplex scan in 6 months, will arrange follow up. resume plavix and eliquis. possibly change to entresto cardiology consult pulm consult video-swallow Aspirin 325 Home meds reconciled including Plavix and Eliquis Neuro checks q 4 hrs Consult neurology MRI reviewed PT OT Scale insulin okay for ADA diet FULL CODE consult nephrology Resume eliquis after carotid angiogram today CAROTID ANGIOGRAPHY TODAY 44 min pt exam, chart review > 50% of time spent with exam, chart review, pt care coordination COMPLEX medical decision making, risk of cva with angiogram Vitals Vitals Vital Signs Date Time Temp Pulse Resp B/P (MAP) Pulse Ox O2 Delivery O2 Flow Rate FiO2 09/30/18 07:56 60 160/63 09/30/18 07:00 97.9 16 98 Room Air 97.9 09/29/18 14:14 2.0 Physical Exam General: Alert, Oriented X3, Cooperative, No acute distress Heart: Other (irr) Lungs: Clear Abdomen: Normal bowel sounds, Soft, No tenderness, No hepatosplenomegaly, No masses Extremities: No clubbing, No cyanosis, No edema, Normal pulses, No tenderness/ swelling Skin: No rashes, No breakdown, No significant lesion Labs LABS Laboratory Tests Test 09/29/18 11:23 09/29/18 16:43 09/29/18 22:00 09/30/18 03:25 Glucose (Fingerstick) 122 mg/dL (70-99) 80 mg/dL (70-99) 134 mg/dL (70-99) Sodium Level 141 mmol/L (136-145) Potassium Level 4.3 mmol/L (3.5-5.1) Chloride Level 107 mmol/L (98-107) Carbon Dioxide Level 21 mmol/L (21-32) Anion Gap 13 (6-14) Blood Urea Nitrogen 37 mg/dL (8-26) Creatinine 1.6 mg/dL (0.7-1.3) Estimated GFR (Cockcroft-Gault) 42.1 Glucose Level 111 mg/dL (70-99) Calcium Level 9.5 mg/dL (8.5-10.1) Phosphorus Level 3.6 mg/dL (2.6-4.7) Albumin 3.4 g/dL (3.4-5.0) Test 09/30/18 07:20 Glucose (Fingerstick) 102 mg/dL (70-99) Assessment and Plan Assessmemt and Plan Problems Medical Problems: (1) Elevated troponin Status: Acute Comment Review of Relevant I have reviewed the following items viviane (where applicable) has been applied. Labs Laboratory Tests Test 09/28/18 11:38 09/28/18 16:53 09/28/18 19:07 09/29/18 04:00 Glucose (Fingerstick) 130 mg/dL (70-99) 113 mg/dL (70-99) 184 mg/dL (70-99) White Blood Count 8.9 x10^3/uL (4.0-11.0) Red Blood Count 4.25 x10^6/uL (4.30-5.70) Hemoglobin 12.8 g/dL (13.0-17.5) Hematocrit 39.3 % (39.0-53.0) Mean Corpuscular Volume 93 fL (79-100) Mean Corpuscular Hemoglobin 30 pg (25-35) Mean Corpuscular Hemoglobin Concent 33 g/dL (31-37) Red Cell Distribution Width 15.8 % (11.5-14.5) Platelet Count 311 x10^3/uL (140-400) Neutrophils (%) (Auto) 68 % (31-73) Lymphocytes (%) (Auto) 21 % (24-48) Monocytes (%) (Auto) 8 % (0-9) Eosinophils (%) (Auto) 2 % (0-3) Basophils (%) (Auto) 0 % (0-3) Neutrophils # (Auto) 6.0 x10^3uL (1.8-7.7) Lymphocytes # (Auto) 1.9 x10^3/uL (1.0-4.8) Monocytes # (Auto) 0.7 x10^3/uL (0.0-1.1) Eosinophils # (Auto) 0.2 x10^3/uL (0.0-0.7) Basophils # (Auto) 0.0 x10^3/uL (0.0-0.2) Sodium Level 140 mmol/L (136-145) Potassium Level 4.3 mmol/L (3.5-5.1) Chloride Level 106 mmol/L (98-107) Carbon Dioxide Level 21 mmol/L (21-32) Anion Gap 13 (6-14) Blood Urea Nitrogen 42 mg/dL (8-26) Creatinine 1.8 mg/dL (0.7-1.3) Estimated GFR (Cockcroft-Gault) 36.8 Glucose Level 124 mg/dL (70-99) Calcium Level 9.4 mg/dL (8.5-10.1) Phosphorus Level 3.5 mg/dL (2.6-4.7) Albumin 3.3 g/dL (3.4-5.0) Test 09/29/18 07:22 09/29/18 11:23 09/29/18 16:43 09/29/18 22:00 Glucose (Fingerstick) 126 mg/dL (70-99) 122 mg/dL (70-99) 80 mg/dL (70-99) 134 mg/dL (70-99) Test 09/30/18 03:25 09/30/18 07:20 Sodium Level 141 mmol/L (136-145) Potassium Level 4.3 mmol/L (3.5-5.1) Chloride Level 107 mmol/L (98-107) Carbon Dioxide Level 21 mmol/L (21-32) Anion Gap 13 (6-14) Blood Urea Nitrogen 37 mg/dL (8-26) Creatinine 1.6 mg/dL (0.7-1.3) Estimated GFR (Cockcroft-Gault) 42.1 Glucose Level 111 mg/dL (70-99) Calcium Level 9.5 mg/dL (8.5-10.1) Phosphorus Level 3.6 mg/dL (2.6-4.7) Albumin 3.4 g/dL (3.4-5.0) Glucose (Fingerstick) 102 mg/dL (70-99) Laboratory Tests Test 09/29/18 11:23 09/29/18 16:43 09/29/18 22:00 09/30/18 03:25 Glucose (Fingerstick) 122 mg/dL (70-99) 80 mg/dL (70-99) 134 mg/dL (70-99) Sodium Level 141 mmol/L (136-145) Potassium Level 4.3 mmol/L (3.5-5.1) Chloride Level 107 mmol/L (98-107) Carbon Dioxide Level 21 mmol/L (21-32) Anion Gap 13 (6-14) Blood Urea Nitrogen 37 mg/dL (8-26) Creatinine 1.6 mg/dL (0.7-1.3) Estimated GFR (Cockcroft-Gault) 42.1 Glucose Level 111 mg/dL (70-99) Calcium Level 9.5 mg/dL (8.5-10.1) Phosphorus Level 3.6 mg/dL (2.6-4.7) Albumin 3.4 g/dL (3.4-5.0) Test 09/30/18 07:20 Glucose (Fingerstick) 102 mg/dL (70-99) Medications Current Medications Sodium Chloride 1,000 ml @ 1,000 mls/hr 1X ONCE IV Last administered on at 12:21; Start 09/26/18 at 11:45; Stop 09/26/18 at 12:44; Status DC Aspirin (Kodak Aspirin) 325 mg 1X ONCE PO Last administered on 09/26/18at 13:04 ; Start 09/26/18 at 12:30; Stop 09/26/18 at 12:31; Status DC Ondansetron HCl (Zofran) 4 mg PRN Q8HRS PRN IV NAUSEA/VOMITING; Start 09/26/18 at 12:45; Stop 09/26/18 at 13:05; Status DC Insulin Human Lispro (HumaLOG) 0-5 UNITS TIDWMEALS SQ ; Start 09/26/18 at 17:00; Status Cancel Dextrose (Dextrose 50%-Water Syringe) 12.5 gm PRN Q15MIN PRN IV SEE COMMENTS; Start 09/26/18 at 12:45; Status Cancel Ondansetron HCl (Zofran) 4 mg PRN Q6HRS PRN IV NAUSEA/VOMITING; Start 09/26/18 at 13:15 Acetaminophen (Tylenol) 500 mg PRN Q6HRS PRN PO MILD PAIN / TEMP; Start at 13:15 Insulin Human Lispro (HumaLOG) 0-9 UNITS TIDWMEALS SQ ; Start 09/26/18 at 17:00 Dextrose (Dextrose 50%-Water Syringe) 12.5 gm PRN Q15MIN PRN IV SEE COMMENTS; Start 09/26/18 at 13:15 Hydralazine HCl (Apresoline Inj) 10 mg PRN Q4HRS PRN IVP ELEVATED BP, SEE COMMENTS Last administered on 09/26/18at 23:41; Start 09/26/18 at 13:15 Allopurinol (Zyloprim) 200 mg DAILY PO Last administered on 09/30/18 07:57; Start 09/26/18 at 15:00 Amlodipine Besylate (Norvasc) 5 mg DAILY PO Last administered on 09/30/18at 07: 56; Start 09/26/18 at 15:00 Aspirin (Ecotrin) 81 mg DAILY PO ; Start 09/27/18 at 09:00; Stop 09/27/18 at 09: 00; Status DC Clopidogrel Bisulfate (Plavix) 75 mg DAILY PO Last administered on 09/30/18 07 :56; Start 09/26/18 at 15:00 EZETIMIBE (Zetia) 10 mg DAILY PO Last administered on 09/30/18 07:56; Start at 15:00 Gemfibrozil (Lopid) 600 mg DAILY PO Last administered on 09/30/18 07:54; Start 09/26/18 at 15:00 Acetaminophen/ Hydrocodone Bitart (Lortab 10/325) 1 tab PRN Q6HRS PRN PO MODERATE-SEVERE PAIN; Start 09/26/18 at 13:15 Metoprolol Succinate (Toprol Xl) 100 mg DAILY PO Last administered on 07:55; Start 09/26/18 at 15:00 Tamsulosin HCl (Flomax) 0.4 mg HS PO Last administered on 09/29/18 20:50; Start 09/26/18 at 21:00 Ascorbic Acid (Vitamin C) 1,000 mg DAILY PO Last administered on 09/30/18 07: 56; Start 09/26/18 at 15:00 Pantoprazole Sodium (Protonix) 40 mg DAILYAC PO Last administered on 09/30/18 07:54; Start 09/26/18 at 15:00 Losartan Potassium (Cozaar) 100 mg DAILY PO Last administered on 09/30/18 07: 55; Start 09/26/18 at 15:00 Multivitamins (Thera M Plus) 1 tab DAILY PO Last administered on 09/30/18 07: 56; Start 09/26/18 at 15:00 Propafenone HCl (Rythmol) 225 mg BID PO Last administered on 09/27/18 09:27; Start 09/26/18 at 21:00; Stop 09/27/18 at 12:08; Status DC Non-Formulary Medication (Testosterone Cypionate ) 1 ml [id number] IM ; Start at 13:15; Status UNV Non-Formulary Medication (Ubidecarenone (Co Q-10)) 200 mg DAILY PO ; Start 09/27 at 09:00; Status UNV Apixaban (Eliquis) 5 mg BID PO Last administered on 09/27/18 09:17; Start 09/26 at 15:00; Stop 09/29/18 at 15:44; Status DC Info (Anti-Coagulation Monitoring By Pharmacy) 1 each PRN DAILY PRN MC SEE COMMENTS; Start 09/26/18 at 14:15 Atorvastatin Calcium (Lipitor) 20 mg QHS PO ; Start 09/27/18 at 21:00; Stop 04/07 at 21:00; Status DC Barium Sulfate (Varibar Thin Liquid Apple) 148 gm 1X ONCE PO Last administered on 09/27/18at 13:50; Start 09/27/18 at 12:00; Stop 09/27/18 at 12:01 ; Status DC Sodium Chloride 1,000 ml @ 80 mls/hr [id number] IV Last administered on at 20:51; Start 09/27/18 at 16:30 Fluticasone Propionate (Flonase) 2 spray DAILY NS Last administered on at 18:36; Start 09/29/18 at 09:00 Lidocaine/Sodium Bicarbonate (Buffered Lidocaine 1%) 3 ml STK-MED ONCE .ROUTE ; Start 09/29/18 at 13:12; Stop 09/29/18 at 13:13; Status DC Iohexol (Omnipaque 240 Mg/ml) 50 ml STK-MED ONCE .ROUTE ; Start 09/29/18 at 13: 12; Stop 09/29/18 at 13:13; Status DC Heparin Sodium/ Sodium Chloride 1,500 ml @ As Directed STK-MED ONCE .ROUTE ; Start 09/29/18 at 13:12; Stop 09/29/18 at 13:13; Status DC Midazolam HCl (Versed) 2 mg STK-MED ONCE .ROUTE ; Start 09/29/18 at 13:28; Stop 09/29/18 at 13:29; Status DC Fentanyl Citrate (Fentanyl 2ml Vial) 100 mcg STK-MED ONCE .ROUTE ; Start at 13:28; Stop 09/29/18 at 13:29; Status DC Iohexol (Omnipaque 240 Mg/ml) 100 ml STK-MED ONCE .ROUTE ; Start 09/29/18 at 13: 41; Stop 09/29/18 at 13:42; Status DC Iodixanol (Visipaque 320) 100 ml STK-MED ONCE .ROUTE ; Start 09/29/18 at 13:41; Stop 09/29/18 at 13:42; Status DC Heparin Sodium/ Sodium Chloride (HEPARIN for ARTERIAL LINE FLUSH) 1,000 unit 1X ONCE IART Last administered on 09/29/18at 14:06; Start 09/29/18 at 14:00; Stop 09/29/18 at 14:33; Status DC Heparin Sodium/ Sodium Chloride (HEPARIN for ARTERIAL LINE FLUSH) 1,000 unit 1X ONCE IART Last administered on 09/29/18at 14:06; Start 09/29/18 at 14:00; Stop 09/29/18 at 14:33; Status DC Lidocaine/Sodium Bicarbonate (Buffered Lidocaine 1%) 3 ml 1X ONCE IJ Last administered on 09/29/18at 14:06; Start 09/29/18 at 14:00; Stop 09/29/18 at 14:33 ; Status DC Midazolam HCl (Versed) 2 mg 1X ONCE IV Last administered on 09/29/18at 14:07; Start 09/29/18 at 14:00; Stop 09/29/18 at 14:33; Status DC Fentanyl Citrate (Fentanyl 2ml Vial) 100 mcg 1X ONCE IV Last administered on at 14:07; Start 09/29/18 at 14:00; Stop 09/29/18 at 14:33; Status DC Iohexol (Omnipaque 240 Mg/ml) 50 ml 1X ONCE IART Last administered on at 14:06; Start 09/29/18 at 14:00; Stop 09/29/18 at 14:33; Status DC Iohexol (Omnipaque 240 Mg/ml) 100 ml 1X ONCE IJ ; Start 09/29/18 at 14:00; Stop 09/29/18 at 14:33; Status DC Info (CONTRAST GIVEN -- Rx MONITORING) 1 each PRN DAILY PRN MC SEE COMMENTS; Start 09/29/18 at 14:45; Stop 10/01/18 at 14:44 Apixaban (Eliquis) 5 mg BID PO Last administered on 09/30/18at 07:56; Start 06/07 at 21:00 Active Scripts Active Reported Toprol Xl (Metoprolol Succinate) 50 Mg Tab.er.24h 100 Mg PO DAILY Flomax (Tamsulosin Hcl) 0.4 Mg Cap.er.24h 1 Cap PO HS Allopurinol 100 Mg Tablet 3 Tab PO DAILY Amlodipine Besylate 5 Mg Tablet 10 Mg PO DAILY Testosterone Cypionate 200 Mg/1 Ml Vial 1 Ml IM [id number] Hydrocodone-Apap 10-325 (Hydrocodone Bit/Acetaminophen) 1 Each Tablet 1 Tab PO PRN Q6HRS PRN Clopidogrel (Clopidogrel Bisulfate) 75 Mg Tablet 1 Tab PO DAILY Vitamin C (Ascorbic Acid) 1,000 Mg Tablet 1,000 Mg PO DAILY Co Q-10 (Ubidecarenone) 200 Mg Capsule 200 Mg PO DAILY Krill Oil 500 Mg Capsule 500 Mg PO Multi-Vitamin Daily (Multivitamin) 1 Each Tablet 1 Each PO DAILY Gemfibrozil 600 Mg Tablet 1 Tab PO DAILY Zetia (Ezetimibe) 10 Mg Tablet 1 Tab PO DAILY Losartan Potassium 100 Mg Tablet 100 Mg PO DAILY Nexium Capsule (Esomeprazole Magnesium) 40 Mg Capsule. 1 Cap PO DAILY Vitals/I & O Vital Sign - Last 24 Hours 09/29/18 09/29/18 09/29/18 09/29/18 11:00 14:07 14:14 15:00 Temp 97.6 97.4 97.6 97.4 Pulse 80 60 60 Resp 18 11 15 18 B/P (MAP) 137/59 (85) 166/74 (104) Pulse Ox 97 100 100 98 O2 Delivery Room Air Nasal Cannula Nasal Cannula Room Air O2 Flow Rate 2.0 2.0 09/29/18 09/29/18 09/29/18 09/29/18 18:39 18:40 18:41 18:46 Pulse 92 92 92 92 B/P (MAP) 171/54 171/54 171/54 171/54 (93) 09/29/18 09/29/18 09/29/18 09/30/18 20:15 20:30 23:22 03:54 Temp 97.4 97.6 97.4 97.6 Pulse 63 62 54 Resp 16 16 B/P (MAP) 139/64 (89) 153/63 (93) 106/61 (76) Pulse Ox 97 96 O2 Delivery Room Air Room Air Room Air 09/30/18 09/30/18 09/30/18 09/30/18 07:00 07:55 07:55 07:56 Temp 97.9 97.9 Pulse 60 60 60 60 Resp 16 B/P (MAP) 160/63 (95) 160/63 160/63 160/63 Pulse Ox 98 O2 Delivery Room Air Intake and Output 09/29/18 09/29/18 09/30/18 14:59 22:59 06:59 Intake Total 0 ml 160 ml Output Total 150 ml Balance 0 ml -150 ml 160 ml KAREN REYES MD Sep 30, 2018 09:42
[2018-09-30 11:00] VITALS: BP 106/60
[2018-09-30] MEDS: ANTI-COAG MONITOR BY PHARMACY. MC PRN (11:53)
[2018-09-30] MEDS ORDERED: TESTOSTERONE CYPIONATE 200 MG/ML VIAL. IM ONE (12:45)
--- NOTE | 2018-09-30 14:29 | PDOC ---
Renal-Progress Notes Subjective Notes Notes SITTING UP FEELING BETTER, SPEECH IS IMPROVED History of Present Illness Hx of present illness IMPROVED Vitals Vitals Vital Signs Date Time Temp Pulse Resp B/P (MAP) Pulse Ox O2 Delivery O2 Flow Rate FiO2 09/30/18 11:00 97.3 65 16 106/60 (75) 92 Room Air 97.3 09/29/18 14:14 2.0 Weight Weight [ ] I.O. Intake and Output Intake and Output 09/30/18 07:00 Intake Total 160 ml Output Total 150 ml Balance 10 ml Intake Oral 160 ml Output Urine Total 150 ml # Voids 5 # Bowel Movements 1 Labs Labs Laboratory Tests Test 09/29/18 16:43 09/29/18 22:00 09/30/18 03:25 09/30/18 07:20 Glucose (Fingerstick) 80 mg/dL (70-99) 134 mg/dL (70-99) 102 mg/dL (70-99) Sodium Level 141 mmol/L (136-145) Potassium Level 4.3 mmol/L (3.5-5.1) Chloride Level 107 mmol/L (98-107) Carbon Dioxide Level 21 mmol/L (21-32) Anion Gap 13 (6-14) Blood Urea Nitrogen 37 mg/dL (8-26) Creatinine 1.6 mg/dL (0.7-1.3) Estimated GFR (Cockcroft-Gault) 42.1 Glucose Level 111 mg/dL (70-99) Calcium Level 9.5 mg/dL (8.5-10.1) Phosphorus Level 3.6 mg/dL (2.6-4.7) Albumin 3.4 g/dL (3.4-5.0) Test 09/30/18 11:27 Glucose (Fingerstick) 177 mg/dL (70-99) Review of Systems Constitutional: yes: weakness, alert, oriented Ears/Nose/Throat: Yes: no symptom reported Eyes: Yes: no symptom reported Pulmonary: Yes no symptom reported Cardiovascular: Yes no symptom reported Gastrointestional: Yes: constipation Genitourinary: Yes: no symptom reported Musculoskeletal: Yes: muscle stiffness Skin: Yes no symptom reported Psychiatric/Neurological: Yes: slurred speech Endocrine: Yes: no symptom reported Physical Exam General Appearance: no apparent distress, oriented Skin: warm, dry Respiratory: bilateral CTA Heart: S1S2, RRR Abdomen: soft, bowel sounds present Genitourinary: bladder flat Extremities: pulses present, no edema, atrophy Neurology: alert, oriented, follow commands Assessment Assessment IMP DANAN-IMPROVED CKD STAGE 3 WITH CR NOW AT BASELINE-1.6 CM WITH EF OF 30% P AFIB AND HX OF CAD PULM HTN - MODERATELY SEVERE HTN HX DM II R CAROTID ARTERY OBSTRUCTION PLAN CONT HYDRATION VASCULAR FOLLOWING STABLE FROM RENAL STAND POINT WILL FOLLOW BERTO BECKER MD Sep 30, 2018 14:29
[2018-09-30 15:00] VITALS: BP 128/51
[2018-09-30 19:36] VITALS: BP 157/61
[2018-09-30] MEDS: TAMSULOSIN 0.4 MG CAP.ER.24H. PO SCH (22:03)
[2018-09-30 23:31] VITALS: BP 180/63
[2018-10-01 03:27] VITALS: BP 160/56
[2018-10-01] MEDS: IV NORMAL SALINE 1000ML BAG 1,000 ML IV SCH ×3 (06:22→20:13)
[2018-10-01 07:00] VITALS: BP 157/67
--- NOTE | 2018-10-01 07:56 | PDOC ---
PULMONARY PROGRESS NOTES Subjective no sob, no cough, nasal congestion better, no pain Vitals Vital Signs Date Time Temp Pulse Resp B/P (MAP) Pulse Ox O2 Delivery O2 Flow Rate FiO2 10/01/18 03:27 97.5 92 20 160/56 (90) 98 Room Air 97.5 ROS: No Nausea General: Alert, No acute distress HEENT: Other (nc at perrl ) Lungs: Clear Cardiovascular: S1, S2 Abdomen: Soft, Non-tender Neuro Exam: Alert, Oriented Extremities: No Edema Skin: Warm Labs Laboratory Tests Test 09/29/18 11:23 09/29/18 16:43 09/29/18 22:00 09/30/18 03:25 Glucose (Fingerstick) 122 mg/dL (70-99) 80 mg/dL (70-99) 134 mg/dL (70-99) Sodium Level 141 mmol/L (136-145) Potassium Level 4.3 mmol/L (3.5-5.1) Chloride Level 107 mmol/L (98-107) Carbon Dioxide Level 21 mmol/L (21-32) Anion Gap 13 (6-14) Blood Urea Nitrogen 37 mg/dL (8-26) Creatinine 1.6 mg/dL (0.7-1.3) Estimated GFR (Cockcroft-Gault) 42.1 Glucose Level 111 mg/dL (70-99) Calcium Level 9.5 mg/dL (8.5-10.1) Phosphorus Level 3.6 mg/dL (2.6-4.7) Albumin 3.4 g/dL (3.4-5.0) Test 09/30/18 07:20 09/30/18 11:27 09/30/18 16:45 09/30/18 19:17 Glucose (Fingerstick) 102 mg/dL (70-99) 177 mg/dL (70-99) 141 mg/dL (70-99) 145 mg/dL (70-99) Laboratory Tests Test 09/30/18 11:27 09/30/18 16:45 09/30/18 19:17 Glucose (Fingerstick) 177 mg/dL (70-99) 141 mg/dL (70-99) 145 mg/dL (70-99) Medications Active Scripts Medications Dose Route/Sig Max Daily Dose Days Date Category Toprol Xl (Metoprolol Succinate) 50 Mg Tab.er.24h 100 Mg PO DAILY 09/07/18 Reported Flomax (Tamsulosin Hcl) 0.4 Mg Cap.er.24h 1 Cap PO HS 09/06/18 Reported Allopurinol 100 Mg Tablet 3 Tab PO DAILY 09/06/18 Reported Amlodipine Besylate 5 Mg Tablet 10 Mg PO DAILY 09/06/18 Reported Testosterone Cypionate 200 Mg/1 Ml Vial 1 Ml IM [id number] 12/23/16 Reported Hydrocodone-Apap 10-325 (Hydrocodone Bit/Acetaminophen) 1 Each Tablet 1 Tab PO PRN Q6HRS PRN 12/23/16 Reported Clopidogrel (Clopidogrel Bisulfate) 75 Mg Tablet 1 Tab PO DAILY 12/23/16 Reported Vitamin C (Ascorbic Acid) 1,000 Mg Tablet 1,000 Mg PO DAILY 12/16/15 Reported Co Q-10 (Ubidecarenone) 200 Mg Capsule 200 Mg PO DAILY 12/16/15 Reported Krill Oil 500 Mg Capsule 500 Mg PO 12/16/15 Reported Multi-Vitamin Daily (Multivitamin) 1 Each Tablet 1 Each PO DAILY 12/16/15 Reported Gemfibrozil 600 Mg Tablet 1 Tab PO DAILY 12/16/15 Reported Zetia (Ezetimibe) 10 Mg Tablet 1 Tab PO DAILY 12/16/15 Reported Losartan Potassium 100 Mg Tablet 100 Mg PO DAILY 12/16/15 Reported Nexium Capsule (Esomeprazole Magnesium) 40 Mg Capsule.dr 1 Cap PO DAILY 12/16/15 Reported Impression . IMPRESSION: 1. Acute onset of slurred speech and dysarthria compatible with acute lacunar cerebrovascular accident. 2. Moderate pulmonary hypertension based on the recent echo from August. Ejection fraction was 30%, and pulmonary artery pressure was 50. This is likely secondary pulmonary hypertension related to left ventricular dysfunction. No significant chronic obstructive pulmonary disease by history. No history of chronic thromboembolic disease. The patient does have symptoms suggestive of sleep apnea and would benefit from outpatient sleep study. 3. History of coronary artery disease, status post coronary artery bypass graft. 4. Cardiomyopathy, which is ischemic with an ejection fraction of 30%. 5. Paroxysmal atrial fibrillation. 6. Very minimal asbestos exposure. Radiographically, no significant interstitial lung disease.' 7. allergic rhinitis Plan . RECOMMENDATIONS: 1. Follow Neurology recommendations. 2. I do recommend an outpatient sleep study to rule out underlying sleep apnea , which may become more obvious during the initial weeks of stroke. 3. lose wt 4. No need for any further workup for pulmonary hypertension as it is secondary to his cardiomyopathy. 5. Bronchodilators p.r.n. 6. 6-minute walk test at the time of discharge. 7. Follow Cardiology recommendation. 8. Eliquis for atrial fibrillation per Cardiology. 9. cont flonase. Discussed with pt . We will follow along with you. MARGARITO JOHANSEN MD Oct 01, 2018 07:55
[2018-10-01] MEDS: INSULIN LISPRO 300 UNITS/3 ML INSULN.PEN. SQ SCH ×3 (08:00→17:00)
[2018-10-01 08:22] LABS: CALCIUM 9.5 mg/dL (8.5-10.1); CREATININE 1.5 mg/dL (0.7-1.3); GFR 45.4; POTASSIUM 4.3 mmol/L (3.5-5.1)
[2018-10-01] MEDS: APIXABAN 5 MG TABLET. PO SCH ×2 (08:48→21:49)
[2018-10-01] MEDS: LOSARTAN POTASSIUM 50 MG TABLET. PO SCH (08:49)
[2018-10-01] MEDS: EZETIMIBE 10 MG TABLET. PO SCH (08:49)
[2018-10-01] MEDS: GEMFIBROZIL 600 MG TABLET. PO SCH (08:49)
[2018-10-01] MEDS: ASCORBIC ACID 500 MG TABLET PO SCH (08:49)
[2018-10-01] MEDS: MULTIVITAMIN with MINERAL TABLET. PO SCH (08:49)
[2018-10-01] MEDS: amLODIPine BESYLATE 5 MG TABLET PO SCH (08:50)
[2018-10-01] MEDS: PANTOPRAZOLE 40 MG TABLET.DR. PO SCH (08:50)
[2018-10-01] MEDS: CLOPIDOGREL BISULFATE 75 MG TABLET PO SCH (08:50)
[2018-10-01] MEDS: METOPROLOL SUCC 24HR ER 50 MG TAB.ER.24H. PO SCH (08:50)
[2018-10-01] MEDS: ALLOPURINOL 100 MG TABLET. PO SCH (08:50)
[2018-10-01] MEDS: FLUTICASONE 50MCG/NASAL SPRAY 16GM BOTTLE. NS SCH (08:51)
[2018-10-01 11:00] VITALS: BP 91/55
--- NOTE | 2018-10-01 11:29 | PDOC ---
PROGRESS NOTES History of Present Illness History of Present Illness Assessment/Plan Assessment/Plan mri head new : 1.7 cm area of acute lacunar ischemia/infarction is seen involving the right aspect of the nicho near the midline. There is no significant surrounding edema or associated mass effect. The Left Ventricle is borderline dilated. Left ventricle systolic function is moderate to severely impaired. The Ejection Fraction is estimated at 30%. c/w cardiomyopathy There is global hypokinesis of the left ventricle. Doppler and Color Flow revealed mild aortic regurgitation. Doppler and Color-flow revealed mild mitral regurgitation. Doppler and Color Flow revealed mild tricuspid regurgitation. The PA pressure was estimated at 50 mmHg. Shallow left nasolabial fold, dysarthria Generalized weakness Paroxysmal A. 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 cr= 1.5 10/01 History N STEMI Diabetes type 2 dysphagia pulmonary hypertension, mod-severe [id number] left internal carotid artery stenosis. Absence of flow involving the right internal carotid artery of concern for complete occlusion. gait instability, MODERATE PLAN: VASC SURGERY CONSULT Right carotid angiogram done 09/29 shows complete occlusion of the right internal carotid artery. No surgical intervention needed. Will follow asymptomatic left ICA moderate stenosis with a carotid duplex scan in 6 months, will arrange follow up. resume plavix and eliquis. possibly change to entresto cardiology consult pulm FOLLOWING video-swallow Aspirin 325 Home meds reconciled including Plavix and Eliquis Neuro checks q 4 hrs Consult neurology MRI reviewed PT OT Scale insulin okay for ADA diet FULL CODE consult nephrology Resume eliquis after carotid angiogram CAROTID ANGIOGRAPHY reviewed rehab placement 33 min pt exam, chart review > 50% of time spent with exam, chart review, pt care coordination COMPLEX medical decision making, risk of cva with angiogram Vitals Vitals Vital Signs Date Time Temp Pulse Resp B/P (MAP) Pulse Ox O2 Delivery O2 Flow Rate FiO2 10/01/18 11:00 97.3 87 18 91/55 (67) 95 Room Air 97.3 Physical Exam General: Alert, Oriented X3, Cooperative, No acute distress Heart: Other (irr) Lungs: Clear Abdomen: Normal bowel sounds, Soft, No tenderness, No hepatosplenomegaly, No masses Extremities: No clubbing, No cyanosis, No edema, Normal pulses, No tenderness/ swelling Skin: No rashes, No breakdown, No significant lesion Labs LABS Laboratory Tests Test 09/30/18 16:45 09/30/18 19:17 10/01/18 07:11 10/01/18 07:30 Glucose (Fingerstick) 141 mg/dL (70-99) 145 mg/dL (70-99) 109 mg/dL (70-99) Sodium Level 142 mmol/L (136-145) Potassium Level 4.3 mmol/L (3.5-5.1) Chloride Level 107 mmol/L (98-107) Carbon Dioxide Level 20 mmol/L (21-32) Anion Gap 15 (6-14) Blood Urea Nitrogen 29 mg/dL (8-26) Creatinine 1.5 mg/dL (0.7-1.3) Estimated GFR (Cockcroft-Gault) 45.4 Glucose Level 102 mg/dL (70-99) Calcium Level 9.5 mg/dL (8.5-10.1) Assessment and Plan Assessmemt and Plan Problems Medical Problems: (1) Elevated troponin Status: Acute Goal 2 - Transfers Assistance Required * Independent Goal 2 - Transfer Type * Sit to Stand Goal 2 Assessment * Appropriate - Continue Goal 3 - Ambulation Assistance Required * Independent Goal 3 - Ambulation Distance * 250' Goal 3 - Ambulation Device * Roller Walker Goal 3 Assessment * Appropriate - Continue Goal 4 - Stairs Assistance Required * Independent Goal 4 - Number of Stairs * 5-9 Goal 4 - Device on Stairs * Roller Walker * Rail on Right Goal 4 Assessment * Appropriate - Continue Treatment Plan * Therapeutic Exercise * Bed Mobility Training * Transfer training * Gait Training * Body Mechanics Training * Dynamic Balance Training Frequency of Treatment Expected * 10 visits/week Duration of Treatment Expected * 2 weeks Discharge Recommendations * Acute Rehab facility Comment Review of Relevant I have reviewed the following items viviane (where applicable) has been applied. Labs Laboratory Tests Test 09/29/18 16:43 09/29/18 22:00 09/30/18 03:25 09/30/18 07:20 Glucose (Fingerstick) 80 mg/dL (70-99) 134 mg/dL (70-99) 102 mg/dL (70-99) Sodium Level 141 mmol/L (136-145) Potassium Level 4.3 mmol/L (3.5-5.1) Chloride Level 107 mmol/L (98-107) Carbon Dioxide Level 21 mmol/L (21-32) Anion Gap 13 (6-14) Blood Urea Nitrogen 37 mg/dL (8-26) Creatinine 1.6 mg/dL (0.7-1.3) Estimated GFR (Cockcroft-Gault) 42.1 Glucose Level 111 mg/dL (70-99) Calcium Level 9.5 mg/dL (8.5-10.1) Phosphorus Level 3.6 mg/dL (2.6-4.7) Albumin 3.4 g/dL (3.4-5.0) Test 09/30/18 11:27 09/30/18 16:45 09/30/18 19:17 10/01/18 07:11 Glucose (Fingerstick) 177 mg/dL (70-99) 141 mg/dL (70-99) 145 mg/dL (70-99) Sodium Level 142 mmol/L (136-145) Potassium Level 4.3 mmol/L (3.5-5.1) Chloride Level 107 mmol/L (98-107) Carbon Dioxide Level 20 mmol/L (21-32) Anion Gap 15 (6-14) Blood Urea Nitrogen 29 mg/dL (8-26) Creatinine 1.5 mg/dL (0.7-1.3) Estimated GFR (Cockcroft-Gault) 45.4 Glucose Level 102 mg/dL (70-99) Calcium Level 9.5 mg/dL (8.5-10.1) Test 10/01/18 07:30 Glucose (Fingerstick) 109 mg/dL (70-99) Laboratory Tests Test 09/30/18 16:45 09/30/18 19:17 10/01/18 07:11 10/01/18 07:30 Glucose (Fingerstick) 141 mg/dL (70-99) 145 mg/dL (70-99) 109 mg/dL (70-99) Sodium Level 142 mmol/L (136-145) Potassium Level 4.3 mmol/L (3.5-5.1) Chloride Level 107 mmol/L (98-107) Carbon Dioxide Level 20 mmol/L (21-32) Anion Gap 15 (6-14) Blood Urea Nitrogen 29 mg/dL (8-26) Creatinine 1.5 mg/dL (0.7-1.3) Estimated GFR (Cockcroft-Gault) 45.4 Glucose Level 102 mg/dL (70-99) Calcium Level 9.5 mg/dL (8.5-10.1) Medications Current Medications Sodium Chloride 1,000 ml @ 1,000 mls/hr 1X ONCE IV Last administered on at 12:21; Start 09/26/18 at 11:45; Stop 09/26/18 at 12:44; Status DC Aspirin (Kodak Aspirin) 325 mg 1X ONCE PO Last administered on 09/26/18at 13:04 ; Start 09/26/18 at 12:30; Stop 09/26/18 at 12:31; Status DC Ondansetron HCl (Zofran) 4 mg PRN Q8HRS PRN IV NAUSEA/VOMITING; Start 09/26/18 at 12:45; Stop 09/26/18 at 13:05; Status DC Insulin Human Lispro (HumaLOG) 0-5 UNITS TIDWMEALS SQ ; Start 09/26/18 at 17:00; Status Cancel Dextrose (Dextrose 50%-Water Syringe) 12.5 gm PRN Q15MIN PRN IV SEE COMMENTS; Start 09/26/18 at 12:45; Status Cancel Ondansetron HCl (Zofran) 4 mg PRN Q6HRS PRN IV NAUSEA/VOMITING; Start 09/26/18 at 13:15 Acetaminophen (Tylenol) 500 mg PRN Q6HRS PRN PO MILD PAIN / TEMP; Start at 13:15 Insulin Human Lispro (HumaLOG) 0-9 UNITS TIDWMEALS SQ Last administered on 09/30at 12:29; Start 09/26/18 at 17:00 Dextrose (Dextrose 50%-Water Syringe) 12.5 gm PRN Q15MIN PRN IV SEE COMMENTS; Start 09/26/18 at 13:15 Hydralazine HCl (Apresoline Inj) 10 mg PRN Q4HRS PRN IVP ELEVATED BP, SEE COMMENTS Last administered on 09/26/18at 23:41; Start 09/26/18 at 13:15 Allopurinol (Zyloprim) 200 mg DAILY PO Last administered on 10/01/18at 08:50; Start 09/26/18 at 15:00 Amlodipine Besylate (Norvasc) 5 mg DAILY PO Last administered on 10/01/18 08: 50; Start 09/26/18 at 15:00 Aspirin (Ecotrin) 81 mg DAILY PO ; Start 09/27/18 at 09:00; Stop 09/27/18 at 09: 00; Status DC Clopidogrel Bisulfate (Plavix) 75 mg DAILY PO Last administered on 10/01/18 08 :50; Start 09/26/18 at 15:00 EZETIMIBE (Zetia) 10 mg DAILY PO Last administered on 10/01/18 08:49; Start at 15:00 Gemfibrozil (Lopid) 600 mg DAILY PO Last administered on 10/01/18 08:49; Start 09/26/18 at 15:00 Acetaminophen/ Hydrocodone Bitart (Lortab 10/325) 1 tab PRN Q6HRS PRN PO MODERATE-SEVERE PAIN; Start 09/26/18 at 13:15 Metoprolol Succinate (Toprol Xl) 100 mg DAILY PO Last administered on 08:50; Start 09/26/18 at 15:00 Tamsulosin HCl (Flomax) 0.4 mg HS PO Last administered on 09/30/18 22:03; Start 09/26/18 at 21:00 Ascorbic Acid (Vitamin C) 1,000 mg DAILY PO Last administered on 10/01/18 08: 49; Start 09/26/18 at 15:00 Pantoprazole Sodium (Protonix) 40 mg DAILYAC PO Last administered on 10/01/18 08:50; Start 09/26/18 at 15:00 Losartan Potassium (Cozaar) 100 mg DAILY PO Last administered on 10/01/18 08: 49; Start 09/26/18 at 15:00 Multivitamins (Thera M Plus) 1 tab DAILY PO Last administered on 10/01/18 08: 49; Start 09/26/18 at 15:00 Propafenone HCl (Rythmol) 225 mg BID PO Last administered on 09/27/18 09:27; Start 09/26/18 at 21:00; Stop 09/27/18 at 12:08; Status DC Non-Formulary Medication (Testosterone Cypionate ) 1 ml [id number] IM ; Start at 13:15; Status UNV Non-Formulary Medication (Ubidecarenone (Co Q-10)) 200 mg DAILY PO ; Start 09/27 at 09:00; Status UNV Apixaban (Eliquis) 5 mg BID PO Last administered on 09/27/18at 09:17; Start 09/26 at 15:00; Stop 09/29/18 at 15:44; Status DC Info (Anti-Coagulation Monitoring By Pharmacy) 1 each PRN DAILY PRN MC SEE COMMENTS Last administered on 09/30/18at 11:53; Start 09/26/18 at 14:15 Atorvastatin Calcium (Lipitor) 20 mg QHS PO ; Start 09/27/18 at 21:00; Stop 04/07 at 21:00; Status DC Barium Sulfate (Varibar Thin Liquid Apple) 148 gm 1X ONCE PO Last administered on 09/27/18at 13:50; Start 09/27/18 at 12:00; Stop 09/27/18 at 12:01 ; Status DC Sodium Chloride 1,000 ml @ 80 mls/hr [id number] IV Last administered on at 08:48; Start 09/27/18 at 16:30 Fluticasone Propionate (Flonase) 2 spray DAILY NS Last administered on at 08:51; Start 09/29/18 at 09:00 Lidocaine/Sodium Bicarbonate (Buffered Lidocaine 1%) 3 ml STK-MED ONCE .ROUTE ; Start 09/29/18 at 13:12; Stop 09/29/18 at 13:13; Status DC Iohexol (Omnipaque 240 Mg/ml) 50 ml STK-MED ONCE .ROUTE ; Start 09/29/18 at 13: 12; Stop 09/29/18 at 13:13; Status DC Heparin Sodium/ Sodium Chloride 1,500 ml @ As Directed STK-MED ONCE .ROUTE ; Start 09/29/18 at 13:12; Stop 09/29/18 at 13:13; Status DC Midazolam HCl (Versed) 2 mg STK-MED ONCE .ROUTE ; Start 09/29/18 at 13:28; Stop 09/29/18 at 13:29; Status DC Fentanyl Citrate (Fentanyl 2ml Vial) 100 mcg STK-MED ONCE .ROUTE ; Start at 13:28; Stop 09/29/18 at 13:29; Status DC Iohexol (Omnipaque 240 Mg/ml) 100 ml STK-MED ONCE .ROUTE ; Start 09/29/18 at 13: 41; Stop 09/29/18 at 13:42; Status DC Iodixanol (Visipaque 320) 100 ml STK-MED ONCE .ROUTE ; Start 09/29/18 at 13:41; Stop 09/29/18 at 13:42; Status DC Heparin Sodium/ Sodium Chloride (HEPARIN for ARTERIAL LINE FLUSH) 1,000 unit 1X ONCE IART Last administered on 09/29/18at 14:06; Start 09/29/18 at 14:00; Stop 09/29/18 at 14:33; Status DC Heparin Sodium/ Sodium Chloride (HEPARIN for ARTERIAL LINE FLUSH) 1,000 unit 1X ONCE IART Last administered on 09/29/18at 14:06; Start 09/29/18 at 14:00; Stop 09/29/18 at 14:33; Status DC Lidocaine/Sodium Bicarbonate (Buffered Lidocaine 1%) 3 ml 1X ONCE IJ Last administered on 09/29/18at 14:06; Start 09/29/18 at 14:00; Stop 09/29/18 at 14:33 ; Status DC Midazolam HCl (Versed) 2 mg 1X ONCE IV Last administered on 09/29/18at 14:07; Start 09/29/18 at 14:00; Stop 09/29/18 at 14:33; Status DC Fentanyl Citrate (Fentanyl 2ml Vial) 100 mcg 1X ONCE IV Last administered on at 14:07; Start 09/29/18 at 14:00; Stop 09/29/18 at 14:33; Status DC Iohexol (Omnipaque 240 Mg/ml) 50 ml 1X ONCE IART Last administered on at 14:06; Start 09/29/18 at 14:00; Stop 09/29/18 at 14:33; Status DC Iohexol (Omnipaque 240 Mg/ml) 100 ml 1X ONCE IJ ; Start 09/29/18 at 14:00; Stop 09/29/18 at 14:33; Status DC Info (CONTRAST GIVEN -- Rx MONITORING) 1 each PRN DAILY PRN MC SEE COMMENTS; Start 09/29/18 at 14:45; Stop 10/01/18 at 14:44 Apixaban (Eliquis) 5 mg BID PO Last administered on 10/01/18at 08:48; Start 06/07 at 21:00 Testosterone Cypionate (Depo-Testosterone) 200 mg 1X ONCE IM Last administered on 09/30/18at 12:53; Start 09/30/18 at 12:45; Stop 09/30/18 at 12:46 ; Status DC Active Scripts Active Reported Toprol Xl (Metoprolol Succinate) 50 Mg Tab.er.24h 100 Mg PO DAILY Flomax (Tamsulosin Hcl) 0.4 Mg Cap.er.24h 1 Cap PO HS Allopurinol 100 Mg Tablet 3 Tab PO DAILY Amlodipine Besylate 5 Mg Tablet 10 Mg PO DAILY Testosterone Cypionate 200 Mg/1 Ml Vial 1 Ml IM [id number] Hydrocodone-Apap 10-325 (Hydrocodone Bit/Acetaminophen) 1 Each Tablet 1 Tab PO PRN Q6HRS PRN Clopidogrel (Clopidogrel Bisulfate) 75 Mg Tablet 1 Tab PO DAILY Vitamin C (Ascorbic Acid) 1,000 Mg Tablet 1,000 Mg PO DAILY Co Q-10 (Ubidecarenone) 200 Mg Capsule 200 Mg PO DAILY Krill Oil 500 Mg Capsule 500 Mg PO Multi-Vitamin Daily (Multivitamin) 1 Each Tablet 1 Each PO DAILY Gemfibrozil 600 Mg Tablet 1 Tab PO DAILY Zetia (Ezetimibe) 10 Mg Tablet 1 Tab PO DAILY Losartan Potassium 100 Mg Tablet 100 Mg PO DAILY Nexium Capsule (Esomeprazole Magnesium) 40 Mg Capsule. 1 Cap PO DAILY Vitals/I & O Vital Sign - Last 24 Hours 09/30/18 09/30/18 09/30/18 09/30/18 15:00 19:36 20:00 23:31 Temp 97.5 97.7 98.0 97.5 97.7 98.0 Pulse 59 63 66 Resp 16 18 18 B/P (MAP) 128/51 (76) 157/61 (93) 180/63 (102) Pulse Ox 98 98 97 O2 Delivery Room Air Room Air Room Air Room Air 10/01/18 10/01/18 10/01/18 10/01/18 03:27 07:00 08:00 08:49 Temp 97.5 97.5 97.5 97.5 Pulse 92 85 85 Resp 20 18 B/P (MAP) 160/56 (90) 157/67 (97) 157/67 Pulse Ox 98 95 O2 Delivery Room Air Room Air Room Air 10/01/18 10/01/18 10/01/18 08:50 08:50 11:00 Temp 97.3 97.3 Pulse 85 85 87 Resp 18 B/P (MAP) 157/67 157/67 91/55 (67) Pulse Ox 95 O2 Delivery Room Air Intake and Output 09/30/18 09/30/18 10/01/18 15:00 23:00 07:00 Intake Total 225 ml 100 ml 100 ml Balance 225 ml 100 ml 100 ml KAREN REYES MD Oct 01, 2018 11:29
[2018-10-01] MEDS: ANTI-COAG MONITOR BY PHARMACY. MC PRN (12:05)
--- NOTE | 2018-10-01 12:12 | PDOC ---
Renal-Progress Notes Subjective Notes Notes NO NEW COMPLAINTS History of Present Illness Hx of present illness STABLE Vitals Vitals Vital Signs Date Time Temp Pulse Resp B/P (MAP) Pulse Ox O2 Delivery O2 Flow Rate FiO2 10/01/18 11:00 97.3 87 18 91/55 (67) 95 Room Air 97.3 Weight Weight [ ] I.O. Intake and Output Intake and Output 10/01/18 07:00 Intake Total 425 ml Balance 425 ml Intake Oral 425 ml # Voids 3 Labs Labs Laboratory Tests Test 09/30/18 16:45 09/30/18 19:17 10/01/18 07:11 10/01/18 07:30 Glucose (Fingerstick) 141 mg/dL (70-99) 145 mg/dL (70-99) 109 mg/dL (70-99) Sodium Level 142 mmol/L (136-145) Potassium Level 4.3 mmol/L (3.5-5.1) Chloride Level 107 mmol/L (98-107) Carbon Dioxide Level 20 mmol/L (21-32) Anion Gap 15 (6-14) Blood Urea Nitrogen 29 mg/dL (8-26) Creatinine 1.5 mg/dL (0.7-1.3) Estimated GFR (Cockcroft-Gault) 45.4 Glucose Level 102 mg/dL (70-99) Calcium Level 9.5 mg/dL (8.5-10.1) Test 10/01/18 11:33 Glucose (Fingerstick) 146 mg/dL (70-99) Review of Systems Constitutional: yes: weakness, alert, oriented Ears/Nose/Throat: Yes: no symptom reported Eyes: Yes: no symptom reported Pulmonary: Yes no symptom reported Cardiovascular: Yes no symptom reported Gastrointestional: Yes: constipation Genitourinary: Yes: no symptom reported Musculoskeletal: Yes: muscle stiffness Skin: Yes no symptom reported Psychiatric/Neurological: Yes: slurred speech Endocrine: Yes: no symptom reported Physical Exam General Appearance: no apparent distress, oriented Skin: warm, dry Respiratory: bilateral CTA Heart: S1S2, RRR Abdomen: soft, bowel sounds present Genitourinary: bladder flat Extremities: pulses present, no edema, atrophy Neurology: alert, oriented, follow commands Assessment Assessment IMP DANNA-RESOLVED CKD STAGE 3 WITH CR NOW AT BASELINE-1.6 CM WITH EF OF 30% P AFIB AND HX OF CAD PULM HTN - MODERATELY SEVERE HTN HX DM II R CAROTID ARTERY OBSTRUCTION CVA PLAN CONT HYDRATION VASCULAR FOLLOWING NEUROLOGY FOLLOWING STABLE FROM RENAL STAND POINT WILL FOLLOW BERTO BECKER MD Oct 01, 2018 12:12
[2018-10-01 15:00] VITALS: BP 154/69
--- NOTE | 2018-10-01 19:30 | NUR ---
Patient's iv fluids stopped, as patient is to leave tuesday, (am), and agreed to drink more fluids by mouth, to monitor.
[2018-10-01 19:55] VITALS: BP 140/59
[2018-10-01] MEDS: TAMSULOSIN 0.4 MG CAP.ER.24H. PO SCH (21:49)
[2018-10-01 23:00] VITALS: BP 169/67
[2018-10-02 03:50] VITALS: BP 146/58
[2018-10-02 04:56] LABS: BASO % 0 % (0-3); EOS # 0.3 x10^3/uL (0.0-0.7); EOS % 3 % (0-3); HEMATOCRIT 37.3 % (39.0-53.0); HEMOGLOBIN 12.1 g/dL (13.0-17.5); LYMPH % 25 % (24-48); MEAN CORPUSCULAR HEMOGLOBIN 30 pg (25-35); MEAN CORPUSCULAR HGB CONC 33 g/dL (31-37); MEAN CORPUSCULAR VOLUME 92 fL (79-100); MONO # 0.9 x10^3/uL (0.0-1.1); MONO % 11 % (0-9); NEUT % 61 % (31-73); PLATELET COUNT 277 x10^3/uL (140-400); RED BLOOD COUNT 4.06 x10^6/uL (4.30-5.70); WHITE BLOOD COUNT 8.1 x10^3/uL (4.0-11.0)
[2018-10-02 04:59] LABS: CALCIUM 9.6 mg/dL (8.5-10.1); CREATININE 1.5 mg/dL (0.7-1.3); GFR 45.4; POTASSIUM 4.1 mmol/L (3.5-5.1)
[2018-10-02 06:58] VITALS: BP 149/68
[2018-10-02] MEDS: INSULIN LISPRO 300 UNITS/3 ML INSULN.PEN. SQ SCH ×3 (08:00→17:00)
[2018-10-02] MEDS: IV NORMAL SALINE 1000ML BAG 1,000 ML IV SCH (08:23)
[2018-10-02] MEDS: LOSARTAN POTASSIUM 50 MG TABLET. PO SCH (08:48)
[2018-10-02] MEDS: FLUTICASONE 50MCG/NASAL SPRAY 16GM BOTTLE. NS SCH (08:48)
[2018-10-02] MEDS: MULTIVITAMIN with MINERAL TABLET. PO SCH (08:48)
[2018-10-02] MEDS: amLODIPine BESYLATE 5 MG TABLET PO SCH (08:48)
[2018-10-02] MEDS: GEMFIBROZIL 600 MG TABLET. PO SCH (08:48)
[2018-10-02] MEDS: ALLOPURINOL 100 MG TABLET. PO SCH (08:49)
[2018-10-02] MEDS: PANTOPRAZOLE 40 MG TABLET.DR. PO SCH (08:49)
[2018-10-02] MEDS: APIXABAN 5 MG TABLET. PO SCH ×2 (08:49→20:44)
[2018-10-02] MEDS: ASCORBIC ACID 500 MG TABLET PO SCH (08:49)
[2018-10-02] MEDS: METOPROLOL SUCC 24HR ER 50 MG TAB.ER.24H. PO SCH (08:49)
[2018-10-02] MEDS: CLOPIDOGREL BISULFATE 75 MG TABLET PO SCH (08:49)
[2018-10-02] MEDS: EZETIMIBE 10 MG TABLET. PO SCH (08:49)
--- NOTE | 2018-10-02 09:30 | PDOC ---
PROGRESS NOTES History of Present Illness History of Present Illness Assessment/Plan Assessment/Plan mri head new : 1.7 cm area of acute lacunar ischemia/infarction is seen involving the right aspect of the nicho near the midline. There is no significant surrounding edema or associated mass effect. The Left Ventricle is borderline dilated. Left ventricle systolic function is moderate to severely impaired. The Ejection Fraction is estimated at 30%. c/w cardiomyopathy There is global hypokinesis of the left ventricle. Doppler and Color Flow revealed mild aortic regurgitation. Doppler and Color-flow revealed mild mitral regurgitation. Doppler and Color Flow revealed mild tricuspid regurgitation. The PA pressure was estimated at 50 mmHg. Shallow left nasolabial fold, dysarthria improved Generalized weakness Paroxysmal A. 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 Absence of flow involving the right internal carotid artery of concern for complete occlusion. gait instability, MODERATE PLAN: VASC SURGERY CONSULT noted Right carotid angiogram done 09/29 shows complete occlusion of the right internal carotid artery. No surgical intervention needed. Will follow asymptomatic left ICA moderate stenosis with a carotid duplex scan in 6 months, will arrange follow up. resume plavix and eliquis. possibly change to entresto cardiology consult pulm FOLLOWING video-swallow Aspirin 325 Home meds reconciled including Plavix and Eliquis Neuro checks q 4 hrs Consult neurology MRI reviewed PT OT Scale insulin okay // ADA diet FULL CODE nephrology following Resume eliquis after carotid angiogram CAROTID ANGIOGRAPHY reviewed rehab placement 33 min pt exam, d/c planning chart review > 50% of time spent with exam, chart review, pt care coordination COMPLEX medical decision making, risk of cva with angiogram Vitals Vitals Vital Signs Date Time Temp Pulse Resp B/P (MAP) Pulse Ox O2 Delivery O2 Flow Rate FiO2 10/02/18 08:49 64 149/68 10/02/18 06:58 97.7 19 93 Room Air 97.7 Physical Exam General: Alert, Oriented X3, Cooperative, No acute distress Heart: Regular rate, Other (irr) Lungs: Clear Abdomen: Normal bowel sounds, Soft, No tenderness, No hepatosplenomegaly, No masses Extremities: No clubbing, No cyanosis, No edema, Normal pulses, No tenderness/ swelling Skin: No rashes, No breakdown, No significant lesion Labs LABS Laboratory Tests Test 10/01/18 11:33 10/01/18 16:55 10/01/18 19:08 10/02/18 04:00 Glucose (Fingerstick) 146 mg/dL (70-99) 113 mg/dL (70-99) 174 mg/dL (70-99) White Blood Count 8.1 x10^3/uL (4.0-11.0) Red Blood Count 4.06 x10^6/uL (4.30-5.70) Hemoglobin 12.1 g/dL (13.0-17.5) Hematocrit 37.3 % (39.0-53.0) Mean Corpuscular Volume 92 fL (79-100) Mean Corpuscular Hemoglobin 30 pg (25-35) Mean Corpuscular Hemoglobin Concent 33 g/dL (31-37) Red Cell Distribution Width 16.0 % (11.5-14.5) Platelet Count 277 x10^3/uL (140-400) Neutrophils (%) (Auto) 61 % (31-73) Lymphocytes (%) (Auto) 25 % (24-48) Monocytes (%) (Auto) 11 % (0-9) Eosinophils (%) (Auto) 3 % (0-3) Basophils (%) (Auto) 0 % (0-3) Neutrophils # (Auto) 5.0 x10^3uL (1.8-7.7) Lymphocytes # (Auto) 2.0 x10^3/uL (1.0-4.8) Monocytes # (Auto) 0.9 x10^3/uL (0.0-1.1) Eosinophils # (Auto) 0.3 x10^3/uL (0.0-0.7) Basophils # (Auto) 0.0 x10^3/uL (0.0-0.2) Sodium Level 141 mmol/L (136-145) Potassium Level 4.1 mmol/L (3.5-5.1) Chloride Level 106 mmol/L (98-107) Carbon Dioxide Level 22 mmol/L (21-32) Anion Gap 13 (6-14) Blood Urea Nitrogen 26 mg/dL (8-26) Creatinine 1.5 mg/dL (0.7-1.3) Estimated GFR (Cockcroft-Gault) 45.4 Glucose Level 99 mg/dL (70-99) Calcium Level 9.6 mg/dL (8.5-10.1) Test 10/02/18 07:01 Glucose (Fingerstick) 101 mg/dL (70-99) Assessment and Plan Assessmemt and Plan Problems Medical Problems: (1) Elevated troponin Status: Acute Comment Review of Relevant I have reviewed the following items viviane (where applicable) has been applied. Labs Laboratory Tests Test 09/30/18 11:27 09/30/18 16:45 09/30/18 19:17 10/01/18 07:11 Glucose (Fingerstick) 177 mg/dL (70-99) 141 mg/dL (70-99) 145 mg/dL (70-99) Sodium Level 142 mmol/L (136-145) Potassium Level 4.3 mmol/L (3.5-5.1) Chloride Level 107 mmol/L (98-107) Carbon Dioxide Level 20 mmol/L (21-32) Anion Gap 15 (6-14) Blood Urea Nitrogen 29 mg/dL (8-26) Creatinine 1.5 mg/dL (0.7-1.3) Estimated GFR (Cockcroft-Gault) 45.4 Glucose Level 102 mg/dL (70-99) Calcium Level 9.5 mg/dL (8.5-10.1) Test 10/01/18 07:30 10/01/18 11:33 10/01/18 16:55 10/01/18 19:08 Glucose (Fingerstick) 109 mg/dL (70-99) 146 mg/dL (70-99) 113 mg/dL (70-99) 174 mg/dL (70-99) Test 10/02/18 04:00 10/02/18 07:01 White Blood Count 8.1 x10^3/uL (4.0-11.0) Red Blood Count 4.06 x10^6/uL (4.30-5.70) Hemoglobin 12.1 g/dL (13.0-17.5) Hematocrit 37.3 % (39.0-53.0) Mean Corpuscular Volume 92 fL (79-100) Mean Corpuscular Hemoglobin 30 pg (25-35) Mean Corpuscular Hemoglobin Concent 33 g/dL (31-37) Red Cell Distribution Width 16.0 % (11.5-14.5) Platelet Count 277 x10^3/uL (140-400) Neutrophils (%) (Auto) 61 % (31-73) Lymphocytes (%) (Auto) 25 % (24-48) Monocytes (%) (Auto) 11 % (0-9) Eosinophils (%) (Auto) 3 % (0-3) Basophils (%) (Auto) 0 % (0-3) Neutrophils # (Auto) 5.0 x10^3uL (1.8-7.7) Lymphocytes # (Auto) 2.0 x10^3/uL (1.0-4.8) Monocytes # (Auto) 0.9 x10^3/uL (0.0-1.1) Eosinophils # (Auto) 0.3 x10^3/uL (0.0-0.7) Basophils # (Auto) 0.0 x10^3/uL (0.0-0.2) Sodium Level 141 mmol/L (136-145) Potassium Level 4.1 mmol/L (3.5-5.1) Chloride Level 106 mmol/L (98-107) Carbon Dioxide Level 22 mmol/L (21-32) Anion Gap 13 (6-14) Blood Urea Nitrogen 26 mg/dL (8-26) Creatinine 1.5 mg/dL (0.7-1.3) Estimated GFR (Cockcroft-Gault) 45.4 Glucose Level 99 mg/dL (70-99) Calcium Level 9.6 mg/dL (8.5-10.1) Glucose (Fingerstick) 101 mg/dL (70-99) Laboratory Tests Test 10/01/18 11:33 10/01/18 16:55 10/01/18 19:08 10/02/18 04:00 Glucose (Fingerstick) 146 mg/dL (70-99) 113 mg/dL (70-99) 174 mg/dL (70-99) White Blood Count 8.1 x10^3/uL (4.0-11.0) Red Blood Count 4.06 x10^6/uL (4.30-5.70) Hemoglobin 12.1 g/dL (13.0-17.5) Hematocrit 37.3 % (39.0-53.0) Mean Corpuscular Volume 92 fL (79-100) Mean Corpuscular Hemoglobin 30 pg (25-35) Mean Corpuscular Hemoglobin Concent 33 g/dL (31-37) Red Cell Distribution Width 16.0 % (11.5-14.5) Platelet Count 277 x10^3/uL (140-400) Neutrophils (%) (Auto) 61 % (31-73) Lymphocytes (%) (Auto) 25 % (24-48) Monocytes (%) (Auto) 11 % (0-9) Eosinophils (%) (Auto) 3 % (0-3) Basophils (%) (Auto) 0 % (0-3) Neutrophils # (Auto) 5.0 x10^3uL (1.8-7.7) Lymphocytes # (Auto) 2.0 x10^3/uL (1.0-4.8) Monocytes # (Auto) 0.9 x10^3/uL (0.0-1.1) Eosinophils # (Auto) 0.3 x10^3/uL (0.0-0.7) Basophils # (Auto) 0.0 x10^3/uL (0.0-0.2) Sodium Level 141 mmol/L (136-145) Potassium Level 4.1 mmol/L (3.5-5.1) Chloride Level 106 mmol/L (98-107) Carbon Dioxide Level 22 mmol/L (21-32) Anion Gap 13 (6-14) Blood Urea Nitrogen 26 mg/dL (8-26) Creatinine 1.5 mg/dL (0.7-1.3) Estimated GFR (Cockcroft-Gault) 45.4 Glucose Level 99 mg/dL (70-99) Calcium Level 9.6 mg/dL (8.5-10.1) Test 10/02/18 07:01 Glucose (Fingerstick) 101 mg/dL (70-99) Medications Current Medications Sodium Chloride 1,000 ml @ 1,000 mls/hr 1X ONCE IV Last administered on at 12:21; Start 09/26/18 at 11:45; Stop 09/26/18 at 12:44; Status DC Aspirin (Kodak Aspirin) 325 mg 1X ONCE PO Last administered on 09/26/18at 13:04 ; Start 09/26/18 at 12:30; Stop 09/26/18 at 12:31; Status DC Ondansetron HCl (Zofran) 4 mg PRN Q8HRS PRN IV NAUSEA/VOMITING; Start 09/26/18 at 12:45; Stop 09/26/18 at 13:05; Status DC Insulin Human Lispro (HumaLOG) 0-5 UNITS TIDWMEALS SQ ; Start 09/26/18 at 17:00; Status Cancel Dextrose (Dextrose 50%-Water Syringe) 12.5 gm PRN Q15MIN PRN IV SEE COMMENTS; Start 09/26/18 at 12:45; Status Cancel Ondansetron HCl (Zofran) 4 mg PRN Q6HRS PRN IV NAUSEA/VOMITING; Start 09/26/18 at 13:15 Acetaminophen (Tylenol) 500 mg PRN Q6HRS PRN PO MILD PAIN / TEMP; Start at 13:15 Insulin Human Lispro (HumaLOG) 0-9 UNITS TIDWMEALS SQ Last administered on 09/30at 12:29; Start 09/26/18 at 17:00 Dextrose (Dextrose 50%-Water Syringe) 12.5 gm PRN Q15MIN PRN IV SEE COMMENTS; Start 09/26/18 at 13:15 Hydralazine HCl (Apresoline Inj) 10 mg PRN Q4HRS PRN IVP ELEVATED BP, SEE COMMENTS Last administered on 09/26/18at 23:41; Start 09/26/18 at 13:15 Allopurinol (Zyloprim) 200 mg DAILY PO Last administered on 10/02/18at 08:49; Start 09/26/18 at 15:00 Amlodipine Besylate (Norvasc) 5 mg DAILY PO Last administered on 10/02/18at 08: 48; Start 09/26/18 at 15:00 Aspirin (Ecotrin) 81 mg DAILY PO ; Start 09/27/18 at 09:00; Stop 09/27/18 at 09: 00; Status DC Clopidogrel Bisulfate (Plavix) 75 mg DAILY PO Last administered on 10/02/18at 08 :49; Start 09/26/18 at 15:00 EZETIMIBE (Zetia) 10 mg DAILY PO Last administered on 10/02/18 08:49; Start at 15:00 Gemfibrozil (Lopid) 600 mg DAILY PO Last administered on 10/02/18 08:48; Start 09/26/18 at 15:00 Acetaminophen/ Hydrocodone Bitart (Lortab 10/325) 1 tab PRN Q6HRS PRN PO MODERATE-SEVERE PAIN; Start 09/26/18 at 13:15 Metoprolol Succinate (Toprol Xl) 100 mg DAILY PO Last administered on 08:49; Start 09/26/18 at 15:00 Tamsulosin HCl (Flomax) 0.4 mg HS PO Last administered on 10/01/18 21:49; Start 09/26/18 at 21:00 Ascorbic Acid (Vitamin C) 1,000 mg DAILY PO Last administered on 10/02/18 08: 49; Start 09/26/18 at 15:00 Pantoprazole Sodium (Protonix) 40 mg DAILYAC PO Last administered on 10/02/18 08:49; Start 09/26/18 at 15:00 Losartan Potassium (Cozaar) 100 mg DAILY PO Last administered on 10/02/18 08: 48; Start 09/26/18 at 15:00 Multivitamins (Thera M Plus) 1 tab DAILY PO Last administered on 10/02/18 08: 48; Start 09/26/18 at 15:00 Propafenone HCl (Rythmol) 225 mg BID PO Last administered on 09/27/18 09:27; Start 09/26/18 at 21:00; Stop 09/27/18 at 12:08; Status DC Non-Formulary Medication (Testosterone Cypionate ) 1 ml [id number] IM ; Start at 13:15; Status UNV Non-Formulary Medication (Ubidecarenone (Co Q-10)) 200 mg DAILY PO ; Start 09/27 at 09:00; Status UNV Apixaban (Eliquis) 5 mg BID PO Last administered on 09/27/18 09:17; Start 09/26 at 15:00; Stop 09/29/18 at 15:44; Status DC Info (Anti-Coagulation Monitoring By Pharmacy) 1 each PRN DAILY PRN MC SEE COMMENTS Last administered on 10/01/18at 12:05; Start 09/26/18 at 14:15 Atorvastatin Calcium (Lipitor) 20 mg QHS PO ; Start 09/27/18 at 21:00; Stop 04/07 at 21:00; Status DC Barium Sulfate (Varibar Thin Liquid Apple) 148 gm 1X ONCE PO Last administered on 09/27/18at 13:50; Start 09/27/18 at 12:00; Stop 09/27/18 at 12:01 ; Status DC Sodium Chloride 1,000 ml @ 80 mls/hr [id number] IV Last administered on at 08:48; Start 09/27/18 at 16:30 Fluticasone Propionate (Flonase) 2 spray DAILY NS Last administered on at 08:48; Start 09/29/18 at 09:00 Lidocaine/Sodium Bicarbonate (Buffered Lidocaine 1%) 3 ml STK-MED ONCE .ROUTE ; Start 09/29/18 at 13:12; Stop 09/29/18 at 13:13; Status DC Iohexol (Omnipaque 240 Mg/ml) 50 ml STK-MED ONCE .ROUTE ; Start 09/29/18 at 13: 12; Stop 09/29/18 at 13:13; Status DC Heparin Sodium/ Sodium Chloride 1,500 ml @ As Directed STK-MED ONCE .ROUTE ; Start 09/29/18 at 13:12; Stop 09/29/18 at 13:13; Status DC Midazolam HCl (Versed) 2 mg STK-MED ONCE .ROUTE ; Start 09/29/18 at 13:28; Stop 09/29/18 at 13:29; Status DC Fentanyl Citrate (Fentanyl 2ml Vial) 100 mcg STK-MED ONCE .ROUTE ; Start at 13:28; Stop 09/29/18 at 13:29; Status DC Iohexol (Omnipaque 240 Mg/ml) 100 ml STK-MED ONCE .ROUTE ; Start 09/29/18 at 13: 41; Stop 09/29/18 at 13:42; Status DC Iodixanol (Visipaque 320) 100 ml STK-MED ONCE .ROUTE ; Start 09/29/18 at 13:41; Stop 09/29/18 at 13:42; Status DC Heparin Sodium/ Sodium Chloride (HEPARIN for ARTERIAL LINE FLUSH) 1,000 unit 1X ONCE IART Last administered on 09/29/18at 14:06; Start 09/29/18 at 14:00; Stop 09/29/18 at 14:33; Status DC Heparin Sodium/ Sodium Chloride (HEPARIN for ARTERIAL LINE FLUSH) 1,000 unit 1X ONCE IART Last administered on 09/29/18at 14:06; Start 09/29/18 at 14:00; Stop 09/29/18 at 14:33; Status DC Lidocaine/Sodium Bicarbonate (Buffered Lidocaine 1%) 3 ml 1X ONCE IJ Last administered on 09/29/18at 14:06; Start 09/29/18 at 14:00; Stop 09/29/18 at 14:33 ; Status DC Midazolam HCl (Versed) 2 mg 1X ONCE IV Last administered on 09/29/18at 14:07; Start 09/29/18 at 14:00; Stop 09/29/18 at 14:33; Status DC Fentanyl Citrate (Fentanyl 2ml Vial) 100 mcg 1X ONCE IV Last administered on at 14:07; Start 09/29/18 at 14:00; Stop 09/29/18 at 14:33; Status DC Iohexol (Omnipaque 240 Mg/ml) 50 ml 1X ONCE IART Last administered on at 14:06; Start 09/29/18 at 14:00; Stop 09/29/18 at 14:33; Status DC Iohexol (Omnipaque 240 Mg/ml) 100 ml 1X ONCE IJ ; Start 09/29/18 at 14:00; Stop 09/29/18 at 14:33; Status DC Info (CONTRAST GIVEN -- Rx MONITORING) 1 each PRN DAILY PRN MC SEE COMMENTS; Start 09/29/18 at 14:45; Stop 10/01/18 at 14:44; Status DC Apixaban (Eliquis) 5 mg BID PO Last administered on 10/02/18at 08:49; Start 06/07 at 21:00 Testosterone Cypionate (Depo-Testosterone) 200 mg 1X ONCE IM Last administered on 09/30/18at 12:53; Start 09/30/18 at 12:45; Stop 09/30/18 at 12:46 ; Status DC Active Scripts Active Reported Toprol Xl (Metoprolol Succinate) 50 Mg Tab.er.24h 100 Mg PO DAILY Flomax (Tamsulosin Hcl) 0.4 Mg Cap.er.24h 1 Cap PO HS Allopurinol 100 Mg Tablet 3 Tab PO DAILY Amlodipine Besylate 5 Mg Tablet 10 Mg PO DAILY Testosterone Cypionate 200 Mg/1 Ml Vial 1 Ml IM [id number] Hydrocodone-Apap 10-325 (Hydrocodone Bit/Acetaminophen) 1 Each Tablet 1 Tab PO PRN Q6HRS PRN Clopidogrel (Clopidogrel Bisulfate) 75 Mg Tablet 1 Tab PO DAILY Vitamin C (Ascorbic Acid) 1,000 Mg Tablet 1,000 Mg PO DAILY Co Q-10 (Ubidecarenone) 200 Mg Capsule 200 Mg PO DAILY Krill Oil 500 Mg Capsule 500 Mg PO Multi-Vitamin Daily (Multivitamin) 1 Each Tablet 1 Each PO DAILY Gemfibrozil 600 Mg Tablet 1 Tab PO DAILY Zetia (Ezetimibe) 10 Mg Tablet 1 Tab PO DAILY Losartan Potassium 100 Mg Tablet 100 Mg PO DAILY Nexium Capsule (Esomeprazole Magnesium) 40 Mg Capsule. 1 Cap PO DAILY Vitals/I & O Vital Sign - Last 24 Hours 10/01/18 10/01/18 10/01/18 10/01/18 11:00 15:00 19:55 20:10 Temp 97.3 97.5 98.1 97.3 97.5 98.1 Pulse 87 82 61 Resp 18 18 20 B/P (MAP) 91/55 (67) 154/69 (97) 140/59 (86) Pulse Ox 95 97 96 O2 Delivery Room Air Room Air Room Air Room Air 10/01/18 10/02/18 10/02/18 10/02/18 23:00 03:50 06:58 08:48 Temp 97.9 98.3 97.7 97.9 98.3 97.7 Pulse 61 63 64 64 Resp 20 20 19 B/P (MAP) 169/67 (101) 146/58 (87) 149/68 (95) 149/68 Pulse Ox 100 94 93 O2 Delivery Room Air Room Air Room Air 10/02/18 10/02/18 08:48 08:49 Pulse 64 64 B/P (MAP) 149/68 149/68 Intake and Output 10/01/18 10/01/18 10/02/18 14:59 22:59 06:59 Intake Total 300 ml 150 ml Output Total 850 ml Balance 300 ml -700 ml KAREN REYES MD Oct 02, 2018 09:30
--- NOTE | 2018-10-02 09:40 | NUR ---
LARISSA following pt. LARISSA received a phone call from pt's who requested a change in SNU placement. reported [facility] would like [facility] to go there instead. LARISSA phoned and faxed referral to [facility]. Pt admission and acceptance pending. Will continue to follow.
[2018-10-02 10:32] VITALS: BP 91/58
--- NOTE | 2018-10-02 11:00 | NUR ---
Pt has been accepted at [facility] pending insurance approval. Insurance auth pending. Will continue to follow.
--- NOTE | 2018-10-02 11:27 | PDOC3 ---
Discharge Summary Date of Admission: Sep 26, 2018 Date of Discharge: Oct 02, 2018 Follow-Up: 1-2 days Admitting Diagnosis comment: Assessment/Plan Assessment/Plan mri head new : 1.7 cm area of acute lacunar ischemia/infarction is seen involving the right aspect of the nicho near the midline. There is no significant surrounding edema or associated mass effect. The Left Ventricle is borderline dilated. Left ventricle systolic function is moderate to severely impaired. The Ejection Fraction is estimated at 30%. c/w cardiomyopathy There is global hypokinesis of the left ventricle. Doppler and Color Flow revealed mild aortic regurgitation. Doppler and Color-flow revealed mild mitral regurgitation. Doppler and Color Flow revealed mild tricuspid regurgitation. The PA pressure was estimated at 50 mmHg. c/w pulm htn Shallow left nasolabial fold, dysarthria improved Generalized weakness Paroxysmal A. 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 Absence of flow involving the right internal carotid artery of concern for complete occlusion. gait instability, MODERATE PLAN: VASC SURGERY CONSULT noted Right carotid angiogram done 09/29 shows complete occlusion of the right internal carotid artery. No surgical intervention needed. Will follow asymptomatic left ICA moderate stenosis with a carotid duplex scan in 6 months, will arrange follow up. resume plavix and eliquis. possibly change to entresto cardiology consult pulm FOLLOWING video-swallow Aspirin 325 Home meds reconciled including Plavix and Eliquis Neuro checks q 4 hrs Consult neurology MRI reviewed PT OT Scale insulin okay // ADA diet FULL CODE nephrology following Resume eliquis after carotid angiogram CAROTID ANGIOGRAPHY reviewed [facility]hab placement [facility] per 33 min pt exam, d/c planning chart review > 50% of time spent with exam, chart review, pt care coordination COMPLEX medical decision making, risk of cva with angiogram Vitals Vitals Vital Signs Date Time Temp Pulse Resp B/P (MAP) Pulse Ox O2 Delivery O2 Flow Rate FiO2 10/02/18 08:49 64 149/68 10/02/18 06:58 97.7 19 93 Room Air 97.7 Physical Exam General: Alert, Oriented X3, Cooperative, No acute distress Heart: Regular rate, Other (irr) Lungs: Clear Abdomen: Normal bowel sounds, Soft, No tenderness, No hepatosplenomegaly, No masses Extremities: No clubbing, No cyanosis, No edema, Normal pulses, No tenderness/ swelling Skin: No rashes, No breakdown, No significant lesion FINAL DIAGNOSIS Problems Medical Problems: (1) Elevated troponin Status: Acute Brief Hospital Course Mr. Bardales is a 78 old [sex] who presented with [ ] Discharge Medications Current Medications Sodium Chloride 1,000 ml @ 1,000 mls/hr 1X ONCE IV Last administered on at 12:21; Start 09/26/18 at 11:45; Stop 09/26/18 at 12:44; Status DC Aspirin (Kodak Aspirin) 325 mg 1X ONCE PO Last administered on 09/26/18at 13:04 ; Start 09/26/18 at 12:30; Stop 09/26/18 at 12:31; Status DC Ondansetron HCl (Zofran) 4 mg PRN Q8HRS PRN IV NAUSEA/VOMITING; Start 09/26/18 at 12:45; Stop 09/26/18 at 13:05; Status DC Insulin Human Lispro (HumaLOG) 0-5 UNITS TIDWMEALS SQ ; Start 09/26/18 at 17:00; Status Cancel Dextrose (Dextrose 50%-Water Syringe) 12.5 gm PRN Q15MIN PRN IV SEE COMMENTS; Start 09/26/18 at 12:45; Status Cancel Ondansetron HCl (Zofran) 4 mg PRN Q6HRS PRN IV NAUSEA/VOMITING; Start 09/26/18 at 13:15 Acetaminophen (Tylenol) 500 mg PRN Q6HRS PRN PO MILD PAIN / TEMP; Start at 13:15 Insulin Human Lispro (HumaLOG) 0-9 UNITS TIDWMEALS SQ Last administered on 09/30at 12:29; Start 09/26/18 at 17:00 Dextrose (Dextrose 50%-Water Syringe) 12.5 gm PRN Q15MIN PRN IV SEE COMMENTS; Start 09/26/18 at 13:15 Hydralazine HCl (Apresoline Inj) 10 mg PRN Q4HRS PRN IVP ELEVATED BP, SEE COMMENTS Last administered on 09/26/18at 23:41; Start 09/26/18 at 13:15 Allopurinol (Zyloprim) 200 mg DAILY PO Last administered on 10/02/18 08:49; Start 09/26/18 at 15:00 Amlodipine Besylate (Norvasc) 5 mg DAILY PO Last administered on 10/02/18 08: 48; Start 09/26/18 at 15:00 Aspirin (Ecotrin) 81 mg DAILY PO ; Start 09/27/18 at 09:00; Stop 09/27/18 at 09: 00; Status DC Clopidogrel Bisulfate (Plavix) 75 mg DAILY PO Last administered on 10/02/18 08 :49; Start 09/26/18 at 15:00 EZETIMIBE (Zetia) 10 mg DAILY PO Last administered on 10/02/18 08:49; Start at 15:00 Gemfibrozil (Lopid) 600 mg DAILY PO Last administered on 10/02/18 08:48; Start 09/26/18 at 15:00 Acetaminophen/ Hydrocodone Bitart (Lortab 10/325) 1 tab PRN Q6HRS PRN PO MODERATE-SEVERE PAIN; Start 09/26/18 at 13:15 Metoprolol Succinate (Toprol Xl) 100 mg DAILY PO Last administered on 08:49; Start 09/26/18 at 15:00 Tamsulosin HCl (Flomax) 0.4 mg HS PO Last administered on 10/01/18 21:49; Start 09/26/18 at 21:00 Ascorbic Acid (Vitamin C) 1,000 mg DAILY PO Last administered on 10/02/18 08: 49; Start 09/26/18 at 15:00 Pantoprazole Sodium (Protonix) 40 mg DAILYAC PO Last administered on 10/02/18 08:49; Start 09/26/18 at 15:00 Losartan Potassium (Cozaar) 100 mg DAILY PO Last administered on 10/02/18 08: 48; Start 09/26/18 at 15:00 Multivitamins (Thera M Plus) 1 tab DAILY PO Last administered on 10/02/18 08: 48; Start 09/26/18 at 15:00 Propafenone HCl (Rythmol) 225 mg BID PO Last administered on 4/10/19at 09:27; Start 09/26/18 at 21:00; Stop 09/27/18 at 12:08; Status DC Non-Formulary Medication (Testosterone Cypionate ) 1 ml [id number] IM ; Start at 13:15; Status UNV Non-Formulary Medication (Ubidecarenone (Co Q-10)) 200 mg DAILY PO ; Start 09/27 at 09:00; Status UNV Apixaban (Eliquis) 5 mg BID PO Last administered on 09/27/18at 09:17; Start 09/26 at 15:00; Stop 09/29/18 at 15:44; Status DC Info (Anti-Coagulation Monitoring By Pharmacy) 1 each PRN DAILY PRN MC SEE COMMENTS Last administered on 10/01/18at 12:05; Start 09/26/18 at 14:15 Atorvastatin Calcium (Lipitor) 20 mg QHS PO ; Start 09/27/18 at 21:00; Stop 04/07 at 21:00; Status DC Barium Sulfate (Varibar Thin Liquid Apple) 148 gm 1X ONCE PO Last administered on 09/27/18at 13:50; Start 09/27/18 at 12:00; Stop 09/27/18 at 12:01 ; Status DC Sodium Chloride 1,000 ml @ 80 mls/hr [id number] IV Last administered on at 08:48; Start 09/27/18 at 16:30 Fluticasone Propionate (Flonase) 2 spray DAILY NS Last administered on at 08:48; Start 09/29/18 at 09:00 Lidocaine/Sodium Bicarbonate (Buffered Lidocaine 1%) 3 ml STK-MED ONCE .ROUTE ; Start 09/29/18 at 13:12; Stop 09/29/18 at 13:13; Status DC Iohexol (Omnipaque 240 Mg/ml) 50 ml STK-MED ONCE .ROUTE ; Start 09/29/18 at 13: 12; Stop 09/29/18 at 13:13; Status DC Heparin Sodium/ Sodium Chloride 1,500 ml @ As Directed STK-MED ONCE .ROUTE ; Start 09/29/18 at 13:12; Stop 09/29/18 at 13:13; Status DC Midazolam HCl (Versed) 2 mg STK-MED ONCE .ROUTE ; Start 09/29/18 at 13:28; Stop 09/29/18 at 13:29; Status DC Fentanyl Citrate (Fentanyl 2ml Vial) 100 mcg STK-MED ONCE .ROUTE ; Start at 13:28; Stop 09/29/18 at 13:29; Status DC Iohexol (Omnipaque 240 Mg/ml) 100 ml STK-MED ONCE .ROUTE ; Start 09/29/18 at 13: 41; Stop 09/29/18 at 13:42; Status DC Iodixanol (Visipaque 320) 100 ml STK-MED ONCE .ROUTE ; Start 09/29/18 at 13:41; Stop 09/29/18 at 13:42; Status DC Heparin Sodium/ Sodium Chloride (HEPARIN for ARTERIAL LINE FLUSH) 1,000 unit 1X ONCE IART Last administered on 09/29/18at 14:06; Start 09/29/18 at 14:00; Stop 09/29/18 at 14:33; Status DC Heparin Sodium/ Sodium Chloride (HEPARIN for ARTERIAL LINE FLUSH) 1,000 unit 1X ONCE IART Last administered on 09/29/18at 14:06; Start 09/29/18 at 14:00; Stop 09/29/18 at 14:33; Status DC Lidocaine/Sodium Bicarbonate (Buffered Lidocaine 1%) 3 ml 1X ONCE IJ Last administered on 09/29/18 14:06; Start 09/29/18 at 14:00; Stop 09/29/18 at 14:33 ; Status DC Midazolam HCl (Versed) 2 mg 1X ONCE IV Last administered on 09/29/18at 14:07; Start 09/29/18 at 14:00; Stop 09/29/18 at 14:33; Status DC Fentanyl Citrate (Fentanyl 2ml Vial) 100 mcg 1X ONCE IV Last administered on at 14:07; Start 09/29/18 at 14:00; Stop 09/29/18 at 14:33; Status DC Iohexol (Omnipaque 240 Mg/ml) 50 ml 1X ONCE IART Last administered on at 14:06; Start 09/29/18 at 14:00; Stop 09/29/18 at 14:33; Status DC Iohexol (Omnipaque 240 Mg/ml) 100 ml 1X ONCE IJ ; Start 09/29/18 at 14:00; Stop 09/29/18 at 14:33; Status DC Info (CONTRAST GIVEN -- Rx MONITORING) 1 each PRN DAILY PRN MC SEE COMMENTS; Start 09/29/18 at 14:45; Stop 10/01/18 at 14:44; Status DC Apixaban (Eliquis) 5 mg BID PO Last administered on 10/02/18at 08:49; Start 06/07 at 21:00 Testosterone Cypionate (Depo-Testosterone) 200 mg 1X ONCE IM Last administered on 09/30/18at 12:53; Start 09/30/18 at 12:45; Stop 09/30/18 at 12:46 ; Status DC Active Scripts Active Reported Toprol Xl (Metoprolol Succinate) 50 Mg Tab.er.24h 100 Mg PO DAILY Flomax (Tamsulosin Hcl) 0.4 Mg Cap.er.24h 1 Cap PO HS Allopurinol 100 Mg Tablet 3 Tab PO DAILY Amlodipine Besylate 5 Mg Tablet 10 Mg PO DAILY Testosterone Cypionate 200 Mg/1 Ml Vial 1 Ml IM [id number] Hydrocodone-Apap 10-325 (Hydrocodone Bit/Acetaminophen) 1 Each Tablet 1 Tab PO PRN Q6HRS PRN Clopidogrel (Clopidogrel Bisulfate) 75 Mg Tablet 1 Tab PO DAILY Vitamin C (Ascorbic Acid) 1,000 Mg Tablet 1,000 Mg PO DAILY Co Q-10 (Ubidecarenone) 200 Mg Capsule 200 Mg PO DAILY Krill Oil 500 Mg Capsule 500 Mg PO Multi-Vitamin Daily (Multivitamin) 1 Each Tablet 1 Each PO DAILY Gemfibrozil 600 Mg Tablet 1 Tab PO DAILY Zetia (Ezetimibe) 10 Mg Tablet 1 Tab PO DAILY Losartan Potassium 100 Mg Tablet 100 Mg PO DAILY Nexium Capsule (Esomeprazole Magnesium) 40 Mg Capsule. 1 Cap PO DAILY Vital Signs Vital Signs Date Time Temp Pulse Resp B/P (MAP) Pulse Ox O2 Delivery O2 Flow Rate FiO2 10/02/18 10:32 97.9 75 20 91/58 (69) 96 Room Air 97.9 10/02/18 08:00 2.0 Labs Laboratory Tests Test 09/30/18 11:27 09/30/18 16:45 09/30/18 19:17 10/01/18 07:11 Glucose (Fingerstick) 177 mg/dL (70-99) 141 mg/dL (70-99) 145 mg/dL (70-99) Sodium Level 142 mmol/L (136-145) Potassium Level 4.3 mmol/L (3.5-5.1) Chloride Level 107 mmol/L (98-107) Carbon Dioxide Level 20 mmol/L (21-32) Anion Gap 15 (6-14) Blood Urea Nitrogen 29 mg/dL (8-26) Creatinine 1.5 mg/dL (0.7-1.3) Estimated GFR (Cockcroft-Gault) 45.4 Glucose Level 102 mg/dL (70-99) Calcium Level 9.5 mg/dL (8.5-10.1) Test 10/01/18 07:30 10/01/18 11:33 10/01/18 16:55 10/01/18 19:08 Glucose (Fingerstick) 109 mg/dL (70-99) 146 mg/dL (70-99) 113 mg/dL (70-99) 174 mg/dL (70-99) Test 10/02/18 04:00 10/02/18 07:01 White Blood Count 8.1 x10^3/uL (4.0-11.0) Red Blood Count 4.06 x10^6/uL (4.30-5.70) Hemoglobin 12.1 g/dL (13.0-17.5) Hematocrit 37.3 % (39.0-53.0) Mean Corpuscular Volume 92 fL (79-100) Mean Corpuscular Hemoglobin 30 pg (25-35) Mean Corpuscular Hemoglobin Concent 33 g/dL (31-37) Red Cell Distribution Width 16.0 % (11.5-14.5) Platelet Count 277 x10^3/uL (140-400) Neutrophils (%) (Auto) 61 % (31-73) Lymphocytes (%) (Auto) 25 % (24-48) Monocytes (%) (Auto) 11 % (0-9) Eosinophils (%) (Auto) 3 % (0-3) Basophils (%) (Auto) 0 % (0-3) Neutrophils # (Auto) 5.0 x10^3uL (1.8-7.7) Lymphocytes # (Auto) 2.0 x10^3/uL (1.0-4.8) Monocytes # (Auto) 0.9 x10^3/uL (0.0-1.1) Eosinophils # (Auto) 0.3 x10^3/uL (0.0-0.7) Basophils # (Auto) 0.0 x10^3/uL (0.0-0.2) Sodium Level 141 mmol/L (136-145) Potassium Level 4.1 mmol/L (3.5-5.1) Chloride Level 106 mmol/L (98-107) Carbon Dioxide Level 22 mmol/L (21-32) Anion Gap 13 (6-14) Blood Urea Nitrogen 26 mg/dL (8-26) Creatinine 1.5 mg/dL (0.7-1.3) Estimated GFR (Cockcroft-Gault) 45.4 Glucose Level 99 mg/dL (70-99) Calcium Level 9.6 mg/dL (8.5-10.1) Glucose (Fingerstick) 101 mg/dL (70-99) Laboratory Tests Test 10/01/18 11:33 10/01/18 16:55 10/01/18 19:08 10/02/18 04:00 Glucose (Fingerstick) 146 mg/dL (70-99) 113 mg/dL (70-99) 174 mg/dL (70-99) White Blood Count 8.1 x10^3/uL (4.0-11.0) Red Blood Count 4.06 x10^6/uL (4.30-5.70) Hemoglobin 12.1 g/dL (13.0-17.5) Hematocrit 37.3 % (39.0-53.0) Mean Corpuscular Volume 92 fL (79-100) Mean Corpuscular Hemoglobin 30 pg (25-35) Mean Corpuscular Hemoglobin Concent 33 g/dL (31-37) Red Cell Distribution Width 16.0 % (11.5-14.5) Platelet Count 277 x10^3/uL (140-400) Neutrophils (%) (Auto) 61 % (31-73) Lymphocytes (%) (Auto) 25 % (24-48) Monocytes (%) (Auto) 11 % (0-9) Eosinophils (%) (Auto) 3 % (0-3) Basophils (%) (Auto) 0 % (0-3) Neutrophils # (Auto) 5.0 x10^3uL (1.8-7.7) Lymphocytes # (Auto) 2.0 x10^3/uL (1.0-4.8) Monocytes # (Auto) 0.9 x10^3/uL (0.0-1.1) Eosinophils # (Auto) 0.3 x10^3/uL (0.0-0.7) Basophils # (Auto) 0.0 x10^3/uL (0.0-0.2) Sodium Level 141 mmol/L (136-145) Potassium Level 4.1 mmol/L (3.5-5.1) Chloride Level 106 mmol/L (98-107) Carbon Dioxide Level 22 mmol/L (21-32) Anion Gap 13 (6-14) Blood Urea Nitrogen 26 mg/dL (8-26) Creatinine 1.5 mg/dL (0.7-1.3) Estimated GFR (Cockcroft-Gault) 45.4 Glucose Level 99 mg/dL (70-99) Calcium Level 9.6 mg/dL (8.5-10.1) Test 10/02/18 07:01 Glucose (Fingerstick) 101 mg/dL (70-99) Allergies Allergies Coded Allergies Type Severity Reaction Last Updated Verified Penicillins Allergy Intermediate rash 09/06/18 Yes amiodarone Allergy Intermediate 12/23/16 Yes Patient Instructions d./c planning 34 min KAREN REYES MD Oct 02, 2018 11:27
[2018-10-02] MEDS ORDERED: APIX5TAB PO (11:30)
[2018-10-02] MEDS ORDERED: FLUT16SP NS (11:30)
[2018-10-02] MEDS ORDERED: ACET500T68 PO (11:30)
--- NOTE | 2018-10-02 11:32 | SNU/HH DC ---
DISCHARGE ORDERS DISCHARGE INFORMATION: FINAL DIAGNOSIS Problems Medical Problems: (1) Elevated troponin Status: Acute CONDITION ON DISCHARGE: Stable CODE STATUS: Code Status: Full [facility]: SNF STAY <30 DAYS: Yes HOSPICE: HOSPICE: No HOSPICE EVAL & TREAT: No LTAC: ADMIT TO LTAC: No POST DISCHARGE ORDERS: ACTIVITY ORDERS: Activity as tolerated WEIGHT BEARING STATUS: Full weight bearing DIET AFTER DISCHARGE: Cardiac CHECKS AFTER DISCHARGE: CHECKS AFTER DISCHARGE: Check blood press - daily, Check blood sugar, ac/hs, Check your Temp as needed TREATMENT/EQUIPMENT ORDERS: ADAPTIVE EQUIPMENT NEEDED: None, Front wheeled walker Physical Therapy For: Evalulation/Treatment Occupational Therapy For: Evaluation/Treatment Speech Language Pathology For: Evaluation/Treatment DISCHARGE MEDICATIONS: Home Meds Active Scripts Fluticasone Propionate (FLUTICASONE PROPIONATE NASAL SPRAY) 16 Gm [place].susp, 2 SPRAY NS DAILY for nasal congestion for 14 Days, #1 SPRAY Prov:KAREN REYES MD 10/02/18 Acetaminophen (ACETAMINOPHEN) 500 Mg Tablet, 500 MG PO PRN Q6HRS PRN for MILD PAIN / TEMP for 14 Days, #60 TAB Prov:KAREN REYES MD 10/02/18 Apixaban (ELIQUIS) 5 Mg Tablet, 5 MG PO BID for cva for 30 Days, #60 TAB Prov:KAREN REYES MD 10/02/18 Reported Medications Metoprolol Succinate (Toprol Xl) 50 Mg Tab.er.24h, 100 MG PO DAILY for hr, TAB.SR 09/07/18 Tamsulosin Hcl (FLOMAX) 0.4 Mg Cap.er.24h, 1 CAP PO HS for prostate, #30 CAP 11 Refills 09/06/18 Amlodipine Besylate (AMLODIPINE BESYLATE) 5 Mg Tablet, 10 MG PO DAILY for HTN, TAB 09/06/18 Testosterone Cypionate (TESTOSTERONE CYPIONATE) 200 Mg/1 Ml Vial, 1 ML IM [id number], #10 ML 1 Refill 12/23/16 Clopidogrel Bisulfate (CLOPIDOGREL) 75 Mg Tablet, 1 TAB PO DAILY, #90 TAB 1 Refill 12/23/16 Ascorbic Acid (VITAMIN C) 1,000 Mg Tablet, 1000 MG PO DAILY 12/16/15 Ubidecarenone (CO Q-10) 200 Mg Capsule, 200 MG PO DAILY 12/16/15 Krill Oil (KRILL OIL) 500 Mg Capsule, 500 MG PO 12/16/15 Multivitamin (MULTI-VITAMIN DAILY) 1 Each Tablet, 1 EACH PO DAILY 12/16/15 Gemfibrozil (GEMFIBROZIL) 600 Mg Tablet, 1 TAB PO DAILY, #60 TAB 5 Refills 12/16/15 Ezetimibe (ZETIA) 10 Mg Tablet, 1 TAB PO DAILY, #30 TAB 5 Refills 12/16/15 Losartan Potassium (LOSARTAN POTASSIUM) 100 Mg Tablet, 100 MG PO DAILY, TAB 12/16/15 Esomeprazole Magnesium (NEXIUM CAPSULE) 40 Mg Capsule.dr, 1 CAP PO DAILY, #30 CAP 5 Refills 12/16/15 Discontinued Reported Medications Allopurinol (ALLOPURINOL) 100 Mg Tablet, 3 TAB PO DAILY for gout, #30 TAB 5 Refills 09/06/18 Hydrocodone Bit/Acetaminophen (HYDROCODONE-APAP 10-325 ) 1 Each Tablet, 1 TAB PO PRN Q6HRS PRN for PAIN, TAB 0 Refills 12/23/16 Cephalexin (CEPHALEXIN) 500 Mg Capsule, 1 CAP PO TID for gout, #30 CAP 09/06/18 Vitamin E Mixed (VITAMIN E) 400 Unit Capsule, 400 UNIT PO 12/16/15 Aspirin (ASPIR 81) 81 Mg Tablet.dr, 1 TAB PO DAILY, #30 TAB 5 Refills 12/16/15 Propafenone Hcl (PROPAFENONE HCL) 150 Mg Tablet, 225 MG PO BID for a-fib 12/16/15 KAREN REYES MD Oct 02, 2018 11:32
--- NOTE | 2018-10-02 11:51 | RAD ---
Selective right common carotid artery angiography 09/29/2018 Indication: Probable complete occlusion at ultrasound. Angiography requested to confirm complete occlusion exclude minimal flow lumen (string sign) Discussion: The risks and benefits of the procedure were discussed the patient and his airport representative. Informed consent was obtained. A timeout procedure was performed. The right groin was prepped and draped using sterile barrier technique. Ultrasound evaluation demonstrates the right common femoral artery to be patent. Using a combination of ultrasound and fluoroscopic guidance right common femoral artery was accessed. Direct ultrasound guidance was used in conjunction with micropuncture technique. Reference ultrasound images were saved the medical record. A 5 Yi vascular sheath was placed. A data operations manager catheter was advanced into the right common carotid artery. Angiography was performed in the AP and lateral positions confirming complete occlusion of the right internal carotid artery at its ostium. Filling of the external carotid artery is seen without significant narrowing. Some filling of a right-sided middle cerebral branches can be seen extracranial collateralization. The sheath in the right groin was removed using a minx closure device. Manual pressure was also held. Sterile dressings were applied. Total fluoroscopy time: 5.6 MINUTES dose area product: 8797.2 [id number] The procedures performed under conscious sedation including continuous cardiopulmonary monitoring via a dedicated sedation nurse. 

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
[2018-10-02 14:24] VITALS: BP 133/56
[2018-10-02] MEDS: ANTI-COAG MONITOR BY PHARMACY. MC PRN (15:15)
--- NOTE | 2018-10-02 16:26 | NUR ---
Spoke with Naida at [facility]. Auth for [facility] still pending.
[2018-10-02 18:56] VITALS: BP 149/57
[2018-10-02] MEDS: TAMSULOSIN 0.4 MG CAP.ER.24H. PO SCH (20:44)
[2018-10-02 23:00] VITALS: BP 136/59
[2018-10-03 03:00] VITALS: BP 121/67
[2018-10-03 04:16] LABS: CALCIUM 9.7 mg/dL (8.5-10.1); CREATININE 1.7 mg/dL (0.7-1.3); GFR 39.3; POTASSIUM 4.2 mmol/L (3.5-5.1)
[2018-10-03 07:00] VITALS: BP 144/74
[2018-10-03] MEDS: INSULIN LISPRO 300 UNITS/3 ML INSULN.PEN. SQ SCH (08:00)
[2018-10-03] MEDS: ALLOPURINOL 100 MG TABLET. PO SCH (08:50)
[2018-10-03] MEDS: APIXABAN 5 MG TABLET. PO SCH (08:50)
[2018-10-03] MEDS: amLODIPine BESYLATE 5 MG TABLET PO SCH (08:50)
[2018-10-03] MEDS: PANTOPRAZOLE 40 MG TABLET.DR. PO SCH (08:51)
[2018-10-03] MEDS: GEMFIBROZIL 600 MG TABLET. PO SCH (08:51)
[2018-10-03] MEDS: LOSARTAN POTASSIUM 50 MG TABLET. PO SCH (08:51)
[2018-10-03] MEDS: EZETIMIBE 10 MG TABLET. PO SCH (08:51)
[2018-10-03] MEDS: ASCORBIC ACID 500 MG TABLET PO SCH (08:51)
[2018-10-03] MEDS: MULTIVITAMIN with MINERAL TABLET. PO SCH (08:51)
[2018-10-03] MEDS: METOPROLOL SUCC 24HR ER 50 MG TAB.ER.24H. PO SCH (08:52)
[2018-10-03] MEDS: FLUTICASONE 50MCG/NASAL SPRAY 16GM BOTTLE. NS SCH (08:52)
--- NOTE | 2018-10-03 09:15 | RAD ---
Examination: VIDEO SWALLOW STUDY History: FL TIME: 1.8 mins Comparison/Correlation: None Findings: Videofluoroscopy was performed utilizing 1.8 minutes of fluoroscopy. Multiple consistencies and substances utilized. Please refer to the speech pathologist report for details. Impression: Videofluoroscopy performed. Electronically signed by: Kevan Amador MD (10/03/2018 9:12 AM) [id number]
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
--- NOTE | 2018-10-03 10:44 | PDOC ---
PROGRESS NOTES History of Present Illness History of Present Illness Assessment/Plan Assessment/Plan mri head new : 1.7 cm area of acute lacunar ischemia/infarction is seen involving the right aspect of the nicho near the midline. There is no significant surrounding edema or associated mass effect. The Left Ventricle is borderline dilated. Left ventricle systolic function is moderate to severely impaired. The Ejection Fraction is estimated at 30%. c/w cardiomyopathy There is global hypokinesis of the left ventricle. Doppler and Color Flow revealed mild aortic regurgitation. Doppler and Color-flow revealed mild mitral regurgitation. Doppler and Color Flow revealed mild tricuspid regurgitation. The PA pressure was estimated at 50 mmHg. Shallow left nasolabial fold, dysarthria improved Generalized weakness Paroxysmal A. 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 cr= 1.5 10/01 History N STEMI Diabetes type 2 dysphagia pulmonary hypertension, mod-severe [id number]-rkdloosi left internal carotid artery stenosis. Absence of flow involving the right internal carotid artery of concern for complete occlusion. gait instability, MODERATE PLAN: VASC SURGERY CONSULT noted Right carotid angiogram done 09/29 shows complete occlusion of the right internal carotid artery. No surgical intervention needed. Will follow asymptomatic left ICA moderate stenosis with a carotid duplex scan in 6 months, will arrange follow up. resume plavix and eliquis. possibly change to entresto cardiology consult pulm FOLLOWING video-swallow Aspirin 325 Home meds reconciled including Plavix and Eliquis Neuro checks q 4 hrs Consult neurology MRI reviewed PT OT Scale insulin okay // ADA diet FULL CODE nephrology following Resume eliquis after carotid angiogram CAROTID ANGIOGRAPHY reviewed rehab placement 6 MIN WALK TODAY, OUT PT SLEEP STUDY PLANNED 33 min pt exam, d/c planning chart review > 50% of time spent with exam, chart review, pt care coordination COMPLEX medical decision making, risk of cva with angiogram Vitals Vitals Vital Signs Date Time Temp Pulse Resp B/P (MAP) Pulse Ox O2 Delivery O2 Flow Rate FiO2 10/03/18 08:52 77 144/74 10/03/18 08:00 Room Air 10/03/18 07:00 98.3 18 94 98.3 10/02/18 08:00 2.0 Physical Exam General: Alert, Oriented X3, Cooperative, No acute distress Heart: Regular rate, Other (irr) Lungs: Clear Abdomen: Normal bowel sounds, Soft, No tenderness, No hepatosplenomegaly, No masses Extremities: No clubbing, No cyanosis, No edema, Normal pulses, No tenderness/ swelling Skin: No rashes, No breakdown, No significant lesion Labs LABS Laboratory Tests Test 10/02/18 11:13 10/02/18 16:37 10/02/18 20:25 10/03/18 03:40 Glucose (Fingerstick) 133 mg/dL (70-99) 147 mg/dL (70-99) 171 mg/dL (70-99) Sodium Level 139 mmol/L (136-145) Potassium Level 4.2 mmol/L (3.5-5.1) Chloride Level 104 mmol/L (98-107) Carbon Dioxide Level 21 mmol/L (21-32) Anion Gap 14 (6-14) Blood Urea Nitrogen 29 mg/dL (8-26) Creatinine 1.7 mg/dL (0.7-1.3) Estimated GFR (Cockcroft-Gault) 39.3 Glucose Level 102 mg/dL (70-99) Calcium Level 9.7 mg/dL (8.5-10.1) Test 10/03/18 07:01 Glucose (Fingerstick) 100 mg/dL (70-99) Assessment and Plan Assessmemt and Plan Problems Medical Problems: (1) Elevated troponin Status: Acute Comment Review of Relevant I have reviewed the following items viviane (where applicable) has been applied. Labs Laboratory Tests Test 10/01/18 11:33 10/01/18 16:55 10/01/18 19:08 10/02/18 04:00 Glucose (Fingerstick) 146 mg/dL (70-99) 113 mg/dL (70-99) 174 mg/dL (70-99) White Blood Count 8.1 x10^3/uL (4.0-11.0) Red Blood Count 4.06 x10^6/uL (4.30-5.70) Hemoglobin 12.1 g/dL (13.0-17.5) Hematocrit 37.3 % (39.0-53.0) Mean Corpuscular Volume 92 fL (79-100) Mean Corpuscular Hemoglobin 30 pg (25-35) Mean Corpuscular Hemoglobin Concent 33 g/dL (31-37) Red Cell Distribution Width 16.0 % (11.5-14.5) Platelet Count 277 x10^3/uL (140-400) Neutrophils (%) (Auto) 61 % (31-73) Lymphocytes (%) (Auto) 25 % (24-48) Monocytes (%) (Auto) 11 % (0-9) Eosinophils (%) (Auto) 3 % (0-3) Basophils (%) (Auto) 0 % (0-3) Neutrophils # (Auto) 5.0 x10^3uL (1.8-7.7) Lymphocytes # (Auto) 2.0 x10^3/uL (1.0-4.8) Monocytes # (Auto) 0.9 x10^3/uL (0.0-1.1) Eosinophils # (Auto) 0.3 x10^3/uL (0.0-0.7) Basophils # (Auto) 0.0 x10^3/uL (0.0-0.2) Sodium Level 141 mmol/L (136-145) Potassium Level 4.1 mmol/L (3.5-5.1) Chloride Level 106 mmol/L (98-107) Carbon Dioxide Level 22 mmol/L (21-32) Anion Gap 13 (6-14) Blood Urea Nitrogen 26 mg/dL (8-26) Creatinine 1.5 mg/dL (0.7-1.3) Estimated GFR (Cockcroft-Gault) 45.4 Glucose Level 99 mg/dL (70-99) Calcium Level 9.6 mg/dL (8.5-10.1) Test 10/02/18 07:01 10/02/18 11:13 10/02/18 16:37 10/02/18 20:25 Glucose (Fingerstick) 101 mg/dL (70-99) 133 mg/dL (70-99) 147 mg/dL (70-99) 171 mg/dL (70-99) Test 10/03/18 03:40 10/03/18 07:01 Sodium Level 139 mmol/L (136-145) Potassium Level 4.2 mmol/L (3.5-5.1) Chloride Level 104 mmol/L (98-107) Carbon Dioxide Level 21 mmol/L (21-32) Anion Gap 14 (6-14) Blood Urea Nitrogen 29 mg/dL (8-26) Creatinine 1.7 mg/dL (0.7-1.3) Estimated GFR (Cockcroft-Gault) 39.3 Glucose Level 102 mg/dL (70-99) Calcium Level 9.7 mg/dL (8.5-10.1) Glucose (Fingerstick) 100 mg/dL (70-99) Laboratory Tests Test 10/02/18 11:13 10/02/18 16:37 10/02/18 20:25 10/03/18 03:40 Glucose (Fingerstick) 133 mg/dL (70-99) 147 mg/dL (70-99) 171 mg/dL (70-99) Sodium Level 139 mmol/L (136-145) Potassium Level 4.2 mmol/L (3.5-5.1) Chloride Level 104 mmol/L (98-107) Carbon Dioxide Level 21 mmol/L (21-32) Anion Gap 14 (6-14) Blood Urea Nitrogen 29 mg/dL (8-26) Creatinine 1.7 mg/dL (0.7-1.3) Estimated GFR (Cockcroft-Gault) 39.3 Glucose Level 102 mg/dL (70-99) Calcium Level 9.7 mg/dL (8.5-10.1) Test 10/03/18 07:01 Glucose (Fingerstick) 100 mg/dL (70-99) Medications Current Medications Sodium Chloride 1,000 ml @ 1,000 mls/hr 1X ONCE IV Last administered on at 12:21; Start 09/26/18 at 11:45; Stop 09/26/18 at 12:44; Status DC Aspirin (Kodak Aspirin) 325 mg 1X ONCE PO Last administered on 09/26/18at 13:04 ; Start 09/26/18 at 12:30; Stop 09/26/18 at 12:31; Status DC Ondansetron HCl (Zofran) 4 mg PRN Q8HRS PRN IV NAUSEA/VOMITING; Start 09/26/18 at 12:45; Stop 09/26/18 at 13:05; Status DC Insulin Human Lispro (HumaLOG) 0-5 UNITS TIDWMEALS SQ ; Start 09/26/18 at 17:00; Status Cancel Dextrose (Dextrose 50%-Water Syringe) 12.5 gm PRN Q15MIN PRN IV SEE COMMENTS; Start 09/26/18 at 12:45; Status Cancel Ondansetron HCl (Zofran) 4 mg PRN Q6HRS PRN IV NAUSEA/VOMITING; Start 09/26/18 at 13:15 Acetaminophen (Tylenol) 500 mg PRN Q6HRS PRN PO MILD PAIN / TEMP; Start at 13:15 Insulin Human Lispro (HumaLOG) 0-9 UNITS TIDWMEALS SQ Last administered on 09/30at 12:29; Start 09/26/18 at 17:00 Dextrose (Dextrose 50%-Water Syringe) 12.5 gm PRN Q15MIN PRN IV SEE COMMENTS; Start 09/26/18 at 13:15 Hydralazine HCl (Apresoline Inj) 10 mg PRN Q4HRS PRN IVP ELEVATED BP, SEE COMMENTS Last administered on 09/26/18at 23:41; Start 09/26/18 at 13:15 Allopurinol (Zyloprim) 200 mg DAILY PO Last administered on 10/03/18at 08:50; Start 09/26/18 at 15:00 Amlodipine Besylate (Norvasc) 5 mg DAILY PO Last administered on 10/03/18at 08: 50; Start 09/26/18 at 15:00 Aspirin (Ecotrin) 81 mg DAILY PO ; Start 09/27/18 at 09:00; Stop 09/27/18 at 09: 00; Status DC Clopidogrel Bisulfate (Plavix) 75 mg DAILY PO Last administered on 10/02/18at 08 :49; Start 09/26/18 at 15:00; Stop 10/02/18 at 12:58; Status DC EZETIMIBE (Zetia) 10 mg DAILY PO Last administered on 10/03/18at 08:51; Start at 15:00 Gemfibrozil (Lopid) 600 mg DAILY PO Last administered on 10/03/18at 08:51; Start 09/26/18 at 15:00 Acetaminophen/ Hydrocodone Bitart (Lortab 10/325) 1 tab PRN Q6HRS PRN PO MODERATE-SEVERE PAIN; Start 09/26/18 at 13:15 Metoprolol Succinate (Toprol Xl) 100 mg DAILY PO Last administered on 08:52; Start 09/26/18 at 15:00 Tamsulosin HCl (Flomax) 0.4 mg HS PO Last administered on 10/02/18 20:44; Start 09/26/18 at 21:00 Ascorbic Acid (Vitamin C) 1,000 mg DAILY PO Last administered on 10/03/18 08: 51; Start 09/26/18 at 15:00 Pantoprazole Sodium (Protonix) 40 mg DAILYAC PO Last administered on 10/03/18 08:51; Start 09/26/18 at 15:00 Losartan Potassium (Cozaar) 100 mg DAILY PO Last administered on 10/03/18 08: 51; Start 09/26/18 at 15:00 Multivitamins (Thera M Plus) 1 tab DAILY PO Last administered on 10/03/18 08: 51; Start 09/26/18 at 15:00 Propafenone HCl (Rythmol) 225 mg BID PO Last administered on 09/27/18 09:27; Start 09/26/18 at 21:00; Stop 09/27/18 at 12:08; Status DC Non-Formulary Medication (Testosterone Cypionate ) 1 ml [id number] IM ; Start at 13:15; Status UNV Non-Formulary Medication (Ubidecarenone (Co Q-10)) 200 mg DAILY PO ; Start 09/27 at 09:00; Status UNV Apixaban (Eliquis) 5 mg BID PO Last administered on 09/27/18 09:17; Start 09/26 at 15:00; Stop 09/29/18 at 15:44; Status DC Info (Anti-Coagulation Monitoring By Pharmacy) 1 each PRN DAILY PRN MC SEE COMMENTS Last administered on 10/02/18 15:15; Start 09/26/18 at 14:15 Atorvastatin Calcium (Lipitor) 20 mg QHS PO ; Start 09/27/18 at 21:00; Stop 04/07 at 21:00; Status DC Barium Sulfate (Varibar Thin Liquid Apple) 148 gm 1X ONCE PO Last administered on 09/27/18at 13:50; Start 09/27/18 at 12:00; Stop 09/27/18 at 12:01 ; Status DC Sodium Chloride 1,000 ml @ 80 mls/hr [id number] IV Last administered on at 08:48; Start 09/27/18 at 16:30; Stop 10/02/18 at 20:50; Status DC Fluticasone Propionate (Flonase) 2 spray DAILY NS Last administered on at 08:52; Start 09/29/18 at 09:00 Lidocaine/Sodium Bicarbonate (Buffered Lidocaine 1%) 3 ml STK-MED ONCE .ROUTE ; Start 09/29/18 at 13:12; Stop 09/29/18 at 13:13; Status DC Iohexol (Omnipaque 240 Mg/ml) 50 ml STK-MED ONCE .ROUTE ; Start 09/29/18 at 13: 12; Stop 09/29/18 at 13:13; Status DC Heparin Sodium/ Sodium Chloride 1,500 ml @ As Directed STK-MED ONCE .ROUTE ; Start 09/29/18 at 13:12; Stop 09/29/18 at 13:13; Status DC Midazolam HCl (Versed) 2 mg STK-MED ONCE .ROUTE ; Start 09/29/18 at 13:28; Stop 09/29/18 at 13:29; Status DC Fentanyl Citrate (Fentanyl 2ml Vial) 100 mcg STK-MED ONCE .ROUTE ; Start at 13:28; Stop 09/29/18 at 13:29; Status DC Iohexol (Omnipaque 240 Mg/ml) 100 ml STK-MED ONCE .ROUTE ; Start 09/29/18 at 13: 41; Stop 09/29/18 at 13:42; Status DC Iodixanol (Visipaque 320) 100 ml STK-MED ONCE .ROUTE ; Start 09/29/18 at 13:41; Stop 09/29/18 at 13:42; Status DC Heparin Sodium/ Sodium Chloride (HEPARIN for ARTERIAL LINE FLUSH) 1,000 unit 1X ONCE IART Last administered on 09/29/18at 14:06; Start 09/29/18 at 14:00; Stop 09/29/18 at 14:33; Status DC Heparin Sodium/ Sodium Chloride (HEPARIN for ARTERIAL LINE FLUSH) 1,000 unit 1X ONCE IART Last administered on 09/29/18at 14:06; Start 09/29/18 at 14:00; Stop 09/29/18 at 14:33; Status DC Lidocaine/Sodium Bicarbonate (Buffered Lidocaine 1%) 3 ml 1X ONCE IJ Last administered on 09/29/18at 14:06; Start 09/29/18 at 14:00; Stop 09/29/18 at 14:33 ; Status DC Midazolam HCl (Versed) 2 mg 1X ONCE IV Last administered on 09/29/18at 14:07; Start 09/29/18 at 14:00; Stop 09/29/18 at 14:33; Status DC Fentanyl Citrate (Fentanyl 2ml Vial) 100 mcg 1X ONCE IV Last administered on at 14:07; Start 09/29/18 at 14:00; Stop 09/29/18 at 14:33; Status DC Iohexol (Omnipaque 240 Mg/ml) 50 ml 1X ONCE IART Last administered on at 14:06; Start 09/29/18 at 14:00; Stop 09/29/18 at 14:33; Status DC Iohexol (Omnipaque 240 Mg/ml) 100 ml 1X ONCE IJ ; Start 09/29/18 at 14:00; Stop 09/29/18 at 14:33; Status DC Info (CONTRAST GIVEN -- Rx MONITORING) 1 each PRN DAILY PRN MC SEE COMMENTS; Start 09/29/18 at 14:45; Stop 10/01/18 at 14:44; Status DC Apixaban (Eliquis) 5 mg BID PO Last administered on 10/03/18at 08:50; Start 06/07 at 21:00 Testosterone Cypionate (Depo-Testosterone) 200 mg 1X ONCE IM Last administered on 09/30/18at 12:53; Start 09/30/18 at 12:45; Stop 09/30/18 at 12:46 ; Status DC Active Scripts Active Fluticasone Propionate Nasal Castor (Fluticasone Propionate) 16 Gm Castor.susp 2 Castor NS DAILY 14 Days Acetaminophen 500 Mg Tablet 500 Mg PO PRN Q6HRS PRN 14 Days Eliquis (Apixaban) 5 Mg Tablet 5 Mg PO BID 30 Days Reported Toprol Xl (Metoprolol Succinate) 50 Mg Tab.er.24h 100 Mg PO DAILY Flomax (Tamsulosin Hcl) 0.4 Mg Cap.er.24h 1 Cap PO HS Amlodipine Besylate 5 Mg Tablet 10 Mg PO DAILY Testosterone Cypionate 200 Mg/1 Ml Vial 1 Ml IM [id number] Clopidogrel (Clopidogrel Bisulfate) 75 Mg Tablet 1 Tab PO DAILY Vitamin C (Ascorbic Acid) 1,000 Mg Tablet 1,000 Mg PO DAILY Co Q-10 (Ubidecarenone) 200 Mg Capsule 200 Mg PO DAILY Krill Oil 500 Mg Capsule 500 Mg PO Multi-Vitamin Daily (Multivitamin) 1 Each Tablet 1 Each PO DAILY Gemfibrozil 600 Mg Tablet 1 Tab PO DAILY Zetia (Ezetimibe) 10 Mg Tablet 1 Tab PO DAILY Losartan Potassium 100 Mg Tablet 100 Mg PO DAILY Nexium Capsule (Esomeprazole Magnesium) 40 Mg Capsule. 1 Cap PO DAILY Vitals/I & O Vital Sign - Last 24 Hours 10/02/18 10/02/18 10/02/18 10/02/18 14:24 18:56 20:00 23:00 Temp 97.4 97.6 98.1 97.4 97.6 98.1 Pulse 64 61 61 Resp 19 18 20 B/P (MAP) 133/56 (81) 149/57 (87) 136/59 (84) Pulse Ox 97 99 97 O2 Delivery Room Air Room Air Room Air Room Air 10/03/18 10/03/18 10/03/18 10/03/18 03:00 07:00 08:00 08:50 Temp 97.7 98.3 97.7 98.3 Pulse 65 77 77 Resp 20 18 B/P (MAP) 121/67 (85) 144/74 (97) 144/74 Pulse Ox 92 94 O2 Delivery Room Air Room Air Room Air 10/03/18 10/03/18 08:51 08:52 Pulse 77 77 B/P (MAP) 144/74 144/74 Intake and Output 10/02/18 10/02/18 10/03/18 15:00 23:00 07:00 Intake Total 1380 ml 700 ml 400 ml Output Total 600 ml 400 ml Balance 780 ml 300 ml 400 ml KAREN REYES MD Oct 03, 2018 10:44
[2018-10-03 10:45] VITALS: BP 126/55
--- NOTE | 2018-10-03 10:58 | NUR ---
[facility] following pt. Insurance has approved SNU. Orders faxed to [facility] yesterday and packet on chart. Pt will transport via facility arranged w/c van at 1200. Pt's choice and rights forms signed by pt and copies placed on chart. Pt's notified via phone and agreeable with plans. ESTEBAN NICOLAS.
--- NOTE | 2018-10-03 11:52 | PDOC ---
PULMONARY PROGRESS NOTES Subjective no sob, no cough, nasal congestion better, no pain Vitals Vital Signs Date Time Temp Pulse Resp B/P (MAP) Pulse Ox O2 Delivery O2 Flow Rate FiO2 10/03/18 10:45 98.0 85 18 126/55 (78) 95 Room Air 98.0 10/02/18 08:00 2.0 ROS: No Nausea General: Alert, No acute distress HEENT: Other (nc at perrl ) Lungs: Clear Cardiovascular: S1, S2 Abdomen: Soft, Non-tender Neuro Exam: Alert, Oriented Extremities: No Edema Skin: Warm Labs Laboratory Tests Test 10/01/18 16:55 10/01/18 19:08 10/02/18 04:00 10/02/18 07:01 Glucose (Fingerstick) 113 mg/dL (70-99) 174 mg/dL (70-99) 101 mg/dL (70-99) White Blood Count 8.1 x10^3/uL (4.0-11.0) Red Blood Count 4.06 x10^6/uL (4.30-5.70) Hemoglobin 12.1 g/dL (13.0-17.5) Hematocrit 37.3 % (39.0-53.0) Mean Corpuscular Volume 92 fL (79-100) Mean Corpuscular Hemoglobin 30 pg (25-35) Mean Corpuscular Hemoglobin Concent 33 g/dL (31-37) Red Cell Distribution Width 16.0 % (11.5-14.5) Platelet Count 277 x10^3/uL (140-400) Neutrophils (%) (Auto) 61 % (31-73) Lymphocytes (%) (Auto) 25 % (24-48) Monocytes (%) (Auto) 11 % (0-9) Eosinophils (%) (Auto) 3 % (0-3) Basophils (%) (Auto) 0 % (0-3) Neutrophils # (Auto) 5.0 x10^3uL (1.8-7.7) Lymphocytes # (Auto) 2.0 x10^3/uL (1.0-4.8) Monocytes # (Auto) 0.9 x10^3/uL (0.0-1.1) Eosinophils # (Auto) 0.3 x10^3/uL (0.0-0.7) Basophils # (Auto) 0.0 x10^3/uL (0.0-0.2) Sodium Level 141 mmol/L (136-145) Potassium Level 4.1 mmol/L (3.5-5.1) Chloride Level 106 mmol/L (98-107) Carbon Dioxide Level 22 mmol/L (21-32) Anion Gap 13 (6-14) Blood Urea Nitrogen 26 mg/dL (8-26) Creatinine 1.5 mg/dL (0.7-1.3) Estimated GFR (Cockcroft-Gault) 45.4 Glucose Level 99 mg/dL (70-99) Calcium Level 9.6 mg/dL (8.5-10.1) Test 10/02/18 11:13 10/02/18 16:37 10/02/18 20:25 10/03/18 03:40 Glucose (Fingerstick) 133 mg/dL (70-99) 147 mg/dL (70-99) 171 mg/dL (70-99) Sodium Level 139 mmol/L (136-145) Potassium Level 4.2 mmol/L (3.5-5.1) Chloride Level 104 mmol/L (98-107) Carbon Dioxide Level 21 mmol/L (21-32) Anion Gap 14 (6-14) Blood Urea Nitrogen 29 mg/dL (8-26) Creatinine 1.7 mg/dL (0.7-1.3) Estimated GFR (Cockcroft-Gault) 39.3 Glucose Level 102 mg/dL (70-99) Calcium Level 9.7 mg/dL (8.5-10.1) Test 10/03/18 07:01 Glucose (Fingerstick) 100 mg/dL (70-99) Laboratory Tests Test 10/02/18 16:37 10/02/18 20:25 10/03/18 03:40 10/03/18 07:01 Glucose (Fingerstick) 147 mg/dL (70-99) 171 mg/dL (70-99) 100 mg/dL (70-99) Sodium Level 139 mmol/L (136-145) Potassium Level 4.2 mmol/L (3.5-5.1) Chloride Level 104 mmol/L (98-107) Carbon Dioxide Level 21 mmol/L (21-32) Anion Gap 14 (6-14) Blood Urea Nitrogen 29 mg/dL (8-26) Creatinine 1.7 mg/dL (0.7-1.3) Estimated GFR (Cockcroft-Gault) 39.3 Glucose Level 102 mg/dL (70-99) Calcium Level 9.7 mg/dL (8.5-10.1) Medications Active Scripts Medications Dose Route/Sig Max Daily Dose Days Date Category Toprol Xl (Metoprolol Succinate) 50 Mg Tab.er.24h 100 Mg PO DAILY 09/07/18 Reported Flomax (Tamsulosin Hcl) 0.4 Mg Cap.er.24h 1 Cap PO HS 09/06/18 Reported Allopurinol 100 Mg Tablet 3 Tab PO DAILY 09/06/18 Reported Amlodipine Besylate 5 Mg Tablet 10 Mg PO DAILY 09/06/18 Reported Testosterone Cypionate 200 Mg/1 Ml Vial 1 Ml IM [id number] 12/23/16 Reported Hydrocodone-Apap 10-325 (Hydrocodone Bit/Acetaminophen) 1 Each Tablet 1 Tab PO PRN Q6HRS PRN 12/23/16 Reported Clopidogrel (Clopidogrel Bisulfate) 75 Mg Tablet 1 Tab PO DAILY 12/23/16 Reported Vitamin C (Ascorbic Acid) 1,000 Mg Tablet 1,000 Mg PO DAILY 12/16/15 Reported Co Q-10 (Ubidecarenone) 200 Mg Capsule 200 Mg PO DAILY 12/16/15 Reported Krill Oil 500 Mg Capsule 500 Mg PO 12/16/15 Reported Multi-Vitamin Daily (Multivitamin) 1 Each Tablet 1 Each PO DAILY 12/16/15 Reported Gemfibrozil 600 Mg Tablet 1 Tab PO DAILY 12/16/15 Reported Zetia (Ezetimibe) 10 Mg Tablet 1 Tab PO DAILY 12/16/15 Reported Losartan Potassium 100 Mg Tablet 100 Mg PO DAILY 12/16/15 Reported Nexium Capsule (Esomeprazole Magnesium) 40 Mg Capsule.dr 1 Cap PO DAILY 12/16/15 Reported Impression . IMPRESSION: 1. Acute onset of slurred speech and dysarthria compatible with acute lacunar cerebrovascular accident. symptoms improved 2. Moderate pulmonary hypertension based on the recent echo from August. Ejection fraction was 30%, and pulmonary artery pressure was 50. This is likely secondary pulmonary hypertension related to left ventricular dysfunction. No significant chronic obstructive pulmonary disease by history. No history of chronic thromboembolic disease. The patient does have symptoms suggestive of sleep apnea and would benefit from outpatient sleep study. 3. History of coronary artery disease, status post coronary artery bypass graft. 4. Cardiomyopathy, which is ischemic with an ejection fraction of 30%. 5. Paroxysmal atrial fibrillation. 6. Very minimal asbestos exposure. Radiographically, no significant interstitial lung disease.' 7. allergic rhinitis Plan . RECOMMENDATIONS: 1. Follow Neurology recommendations. 2. I do recommend an outpatient sleep study to rule out underlying sleep apnea , which may become more obvious during the initial weeks of stroke. 3. lose wt 4. No need for any further workup for pulmonary hypertension as it is secondary to his cardiomyopathy. 5. Bronchodilators p.r.n. 6. 6-minute walk test at the time of discharge. 7. Follow Cardiology recommendation. 8. Eliquis for atrial fibrillation per Cardiology. 9. cont flonase. Discussed with pt . We will follow along with you. LETA SCHREIBER MD Oct 03, 2018 11:52
--- NOTE | 2018-10-03 12:35 | NUR ---
Patient discharged to long-term facility. Report called to Naomi at [facility]. Patients here with him. All belongings with her. Discharge packet given to transportation attendant. Patient assisted out in wheelchair with transport at this time.
== END 2018-10-03 12:30 | DRG 64 ==
LOC: ER 11:38 → 6 SOUTH 12:40
PROVIDERS: ADMIT Internal Medicine; ATTEND Internal Medicine
PROC: B3131ZZ Fluoroscopy of Right Common Carotid Artery using Low Osmolar Contrast (ICD-10-PCS; principal; 2018-10-02)
DX: I63.81 Other cerebral infarction due to occlusion or stenosis of small artery (principal); G93.41 Metabolic encephalopathy; I50.42 Chronic combined systolic (congestive) and diastolic (congestive) heart failure; I13.0 Hypertensive heart and chronic kidney disease with heart failure and stage 1 through stage 4 chronic kidney disease, or unspecified chronic kidney disease; N17.9 Acute kidney failure, unspecified; N18.3 Chronic kidney disease, stage 3 (moderate); G51.0 Bell's palsy; E11.22 Type 2 diabetes mellitus with diabetic chronic kidney disease; E11.51 Type 2 diabetes mellitus with diabetic peripheral angiopathy without gangrene; E11.65 Type 2 diabetes mellitus with hyperglycemia; E78.00 Pure hypercholesterolemia, unspecified; E78.5 Hyperlipidemia, unspecified; H54.61 Unqualified visual loss, right eye, normal vision left eye; I25.10 Atherosclerotic heart disease of native coronary artery without angina pectoris; I25.2 Old myocardial infarction; I25.5 Ischemic cardiomyopathy; I27.22 Pulmonary hypertension due to left heart disease; I48.0 Paroxysmal atrial fibrillation; J30.9 Allergic rhinitis, unspecified; K21.9 Gastro-esophageal reflux disease without esophagitis; I08.3 Combined rheumatic disorders of mitral, aortic and tricuspid valves; I65.22 Occlusion and stenosis of left carotid artery; M19.90 Unspecified osteoarthritis, unspecified site; M10.9 Gout, unspecified; N40.0 Benign prostatic hyperplasia without lower urinary tract symptoms; R13.10 Dysphagia, unspecified; R29.702 NIHSS score 2; Z96.642 Presence of left artificial hip joint; Z79.01 Long term (current) use of anticoagulants; Z79.02 Long term (current) use of antithrombotics/antiplatelets; Z86.73 Personal history of transient ischemic attack (TIA), and cerebral infarction without residual deficits; Z95.1 Presence of aortocoronary bypass graft; Z98.1 Arthrodesis status; Z87.891 Personal history of nicotine dependence; Z79.899 Other long term (current) drug therapy; Z88.0 Allergy status to penicillin; Z88.8 Allergy status to other drugs, medicaments and biological substances
CPT/HCPCS: 36222; 36223; 36415; 70450; 70551; 71045; 74230; 76937; 80048; 80053; 80061; 80069; 81001; 82553; 82607; 82962; 83605; 83735; 84484; 85025; 85610; 85730; 93005; 93880; 96360; 99152; 99153; 99291; C1760; C1769; C1892; C1894; G0269; J0360; J1071; J1644; J1815; J2250; J3010; J7030; Q9966; 92526; 92610; 92611; 97110; 97116; 97530; 97535

== ENCOUNTER 2019-04-02 08:43 | Inpatient (IN) | payer MEDICARE ==
[~2019-04-02] VITALS: Ht 182.9 cm; Wt 106.3 kg
--- NOTE | 2019-04-02 08:15 | PDOC ---
Provider Note Provider Note Vascular surgery post op follow up: 04/23/19 at 10:[address] Pickard [id number] [place] [id number] TOMMIE POSADA Apr 02, 2019 08:15
[~2019-04-02 08:43] MED LIST changes: +ACET500T68 PO; +ALLO300T PO; +APIX5TAB PO; -EZET10TA18 PO; +EZET10TA20 PO; +FLUT16SP NS; +FURO40TA4 PO; +HEPARIN SODIUM 5,000 UNIT in IV RINGERS,LACTATED 500ML 500 ML IRR ONE; +IV RINGERS,LACTATED 1000ML 1,000 ML IV SCH; +LIDOCAINE 1% PF 2 ML VIAL. ID PRN; +ONDANSETRON PF 4 MG/2 ML VIAL. IV PRN; +POLY17PO29 PO; +PROCHLORPERAZINE 10 MG/2 ML VIAL. IV PRN; +VANCOMYCIN 1GM IVPB FOR OMNI 250 ML IV PRN; +VIT1TABL34 PO; +fentaNYL PF VIAL 100 MCG/2 ML VIAL IV PRN
[2019-04-02] MEDS ORDERED: SURGICEL FIBRILLAR 1X2 EACH. ONE (09:36)
[2019-04-02] MEDS ORDERED: LIDOCAINE 1% 20 ML VIAL. ONE ×2 (09:36→10:54)
[2019-04-02] MEDS ORDERED: BUPIVACAINE MPF 0.5% 30 ML VIAL. ONE (09:41)
[2019-04-02] MEDS ORDERED: EPINEPHrine 1 MG/ML VIAL ONE (09:41)
[2019-04-02] MEDS ORDERED: MIDAZOLAM HCL/PF 2 MG/2 ML VIAL. ONE (09:41)
[2019-04-02] MEDS ORDERED: MORPHINE SULFATE 2 MG/ML VIAL. IV PRN (10:00)
[2019-04-02] MEDS ORDERED: 0.9 % SODIUM CHLORIDE 10 ML DISP.SYRIN. IV PRN (10:00)
[2019-04-02] MEDS ORDERED: ONDANSETRON PF 4 MG/2 ML VIAL. IV PRN (10:00)
[2019-04-02] MEDS ORDERED: ACETAMINOPHEN 325 MG TABLET. PO PRN (10:00)
[2019-04-02] MEDS ORDERED: hydrALAZINE 20 MG/ML VIAL. IVP PRN (10:00)
[2019-04-02] MEDS ORDERED: HEPARIN for IV BOLUS 10,000 UNIT/10 ML VIAL. ONE (11:18)
[2019-04-02] MEDS ORDERED: ESMOLOL 100 MG/10 ML VIAL. IVP ONE (11:27)
[2019-04-02] MEDS ORDERED: LABETALOL 20 MG/4 ML DISP.SYRIN. IVP ONE (11:30)
[2019-04-02] MEDS ORDERED: HEPARIN SODIUM 5,000 UNIT in IV RINGERS,LACTATED 500ML 500 ML IRR ONE (11:45)
[2019-04-02] MEDS ORDERED: PROTAMINE 50 MG/5 ML VIAL. IV ONE (11:49)
--- NOTE | 2019-04-02 12:14 | PDOC ---
VASCULAR BRIEF OPERATIVE NOTE Date: Apr 02, 2019 Pre-Op Diagnosis Symptomatic high-grade left internal carotid stenosis Post-Op Diagnosis Same Procedure Performed Left carotid endarterectomy with eversion technique Surgeon Bernard Mock DO, FACS, RPVI Clinical Trainer DARIELA Jimenez Anesthesia Type: Local Blood Loss 50 ML BERNARD MOCK DO Apr 02, 2019 12:14
[2019-04-02 12:27] LABS: BASO # 0.1 x10^3/uL (0.0-0.2); BASO % 1 % (0-3); EOS # 0.7 x10^3/uL (0.0-0.7); EOS % 8 % (0-3); HEMATOCRIT 34.3 % (39.0-53.0); HEMOGLOBIN 11.2 g/dL (13.0-17.5); LYMPH # 1.5 x10^3/uL (1.0-4.8); LYMPH % 17 % (24-48); MEAN CORPUSCULAR HEMOGLOBIN 32 pg (25-35); MEAN CORPUSCULAR HGB CONC 33 g/dL (31-37); MEAN CORPUSCULAR VOLUME 96 fL (79-100); MONO # 0.8 x10^3/uL (0.0-1.1); MONO % 9 % (0-9); NEUT # 5.9 x10^3/uL (1.8-7.7); NEUT % 66 % (31-73); PLATELET COUNT 269 x10^3/uL (140-400); RED BLOOD COUNT 3.57 x10^6/uL (4.30-5.70); RED CELL DISTRIBUTION WIDTH 16.4 % (11.5-14.5)
[2019-04-02 12:31] LABS: CALCIUM 10.1 mg/dL (8.5-10.1); CREATININE 3.6 mg/dL (0.7-1.3); GFR 16.5; POTASSIUM 4.5 mmol/L (3.5-5.1)
[2019-04-02] MEDS: fentaNYL PF VIAL 100 MCG/2 ML VIAL IV PRN ×2 (12:49→13:29)
--- NOTE | 2019-04-02 13:19 | OP ---
DATE OF SURGERY: 04/02/2019 ATTENDING SURGEON: Benitez Mock DO, FACS, RPVI NURSE PRACTITIONER PER DIEM: DARIELA Jimenez. PREOPERATIVE DIAGNOSIS: Symptomatic high-grade left internal carotid stenosis. POSTOPERATIVE DIAGNOSIS: Symptomatic high-grade left internal carotid stenosis. PROCEDURE: Left carotid endarterectomy with eversion technique. ANESTHESIA: Local. SPECIMENS: None. ESTIMATED BLOOD LOSS: 50 mL. COMPLICATIONS: None. PREOPERATIVE INDICATIONS: The patient is a very pleasant 79-year-old male who was referred for a symptomatic high-grade left internal carotid stenosis. The patient has a chronic occlusion of the right internal carotid artery. He was found to have symptoms concerning for stroke related to the carotid occlusion on the left and had very high-grade velocities on arterial duplex. I consented the patient for operative procedure and he underwent appropriate perioperative risk stratification and was found to be acceptable to proceed. The patient and his family understood all risks, benefits, and alternatives of the procedure prior to proceeding. They were agreeable to proceed. DESCRIPTION OF PROCEDURE: The patient was brought to the operating suite, placed in supine position. The patient had received a cervical block per anesthesia as well as invasive monitoring line. Next, the left neck was prepped and draped in sterile fashion. Following this, a timeout procedure was performed. It was confirmed that the patient did receive appropriate perioperative antibiotics and then correct operative site was marked and draped. The patient had very poor neck mobility and therefore his neck was in quite a bit of flexion for the procedure complicating the dissection. Next, a sternocleidomastoid incision was made, carried through skin and subcutaneous tissue. Dissection was carried down through the platysma muscle into the sternocleidomastoid muscle identified. Sternocleidomastoid muscle was reflected over to the level of the jugular vein. Jugular vein was dissected on its anterior surface until we identified the common carotid artery. Common carotid artery was circumferentially dissected and controlled with vessel loop proximally. We also identified and preserved the vagus nerve throughout its entire course. Next, careful dissection of the carotid bifurcation was performed. The patient was heparinized at this time to allow appropriate circulation. External carotid artery was circumferentially dissected as well as the superior thyroid artery and controlled with a vessel loop. Next, I was able to dissect up to the distal portion of the internal carotid artery as the patient had a fairly long plaque within the internal carotid artery. The distal internal carotid artery was soft and healthy and jhon egg blue. This was circumferentially dissected in preparation for clamping. After appropriate circulation time of the heparin and after his hemodynamic status was found to be stable, the internal carotid artery was clamped followed by the common carotid artery followed by external carotid artery and superior thyroid artery. The patient had no changes in his neurologic status. Following this, an 11 blade scalpel was used to create an arteriotomy and then the internal carotid artery was transected from the carotid bifurcation. The patient had a very high-grade friable soft plaque within the lumen. Next, a Roseau elevator was used to elevate the plaque and create an endarterectomy plane and then the plaque was completely everted out of the internal carotid artery with a healthy distal endpoint directly visualized within our surgical field. After copious amounts of heparinized saline solution and I was satisfied with the endarterectomy, there was no further loose fragments noted within the lumen. Following this, a Roseau elevator was used to create an endarterectomy plane within the common carotid artery and external carotid artery and the plaque was completely removed from this location and handed off the field. Again, after I was satisfied with the endarterectomy plane and there were no further loose fragments, I copiously irrigated the lumen with heparinized saline solution. Next, a 6-0 Prolene suture was used to reattach the internal carotid artery to the carotid bifurcation. The posterior suture line was completed first followed by the anterior suture line. Prior to completing the arteriotomy, we did backbleed and flush the vessels appropriately and then the lumen was again copiously irrigated with heparinized saline solution. Following this, the arteriotomy was completely closed and flow was first restored to the external carotid artery and superior thyroid artery followed by the common carotid artery. The 4-5 heartbeats were allowed to flush any potential debris through the system. Next, the internal carotid artery clamp was released after confirming the patient's hemodynamic status to be stable. The patient was following all commands at the conclusion and denominational of flow and we had good hemostasis at the level of the arteriotomy. We had palpable pulsatile flow through the internal carotid artery, external carotid artery and common carotid artery as well as the superior thyroid artery. Following this, the patient was administered protamine and the wound was irrigated with antibiotic-impregnated solution and then Fibrillar was placed for raw surface bleeding. An 8-Kittitian drain was placed at the base of the neck and secured in place using a 3-0 nylon suture. Following this, after a correct lap, sponge, needle and instrument count, the platysma layer was closed using interrupted 3-0 Vicryl suture followed by 4-0 Monocryl for the skin followed by Dermabond, and a sterile dressing at the drain exit site. The patient tolerated the procedure well and was transferred to the post-anesthesia care unit in stable condition. BENITEZ MOCK DO DR: PEDRO/natasha JOB#: [id number] / [id number] [id number]
[2019-04-02 14:32] VITALS: BP 151/61
[2019-04-02] MEDS: IV NORMAL SALINE 1000ML BAG 1,000 ML IV SCH (14:34)
[2019-04-02] MEDS: oxyCODONE IR 5 MG TABLET PO PRN ×2 (15:37→20:36)
[2019-04-02] MEDS: ACETAMINOPHEN 500 MG TABLET PO PRN (17:36)
[2019-04-02 19:25] VITALS: BP 149/66
[2019-04-02] MEDS ORDERED: TAMSULOSIN 0.4 MG CAP.ER.24H. PO SCH (21:00)
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
[2019-04-02 23:00] VITALS: BP 172/66
[2019-04-03 00:51] VITALS: BP 154/69
[2019-04-03 00:52] VITALS: BP 154/69
[2019-04-03] MEDS: ACETAMINOPHEN 500 MG TABLET PO PRN ×2 (01:04→15:52)
[2019-04-03] MEDS: oxyCODONE IR 5 MG TABLET PO PRN (01:05)
[2019-04-03 03:40] VITALS: BP 161/84
[2019-04-03] MEDS: IV NORMAL SALINE 1000ML BAG 1,000 ML IV SCH (04:16)
[2019-04-03] MEDS: LABETALOL 20 MG/4 ML DISP.SYRIN. IVP PRN ×2 (04:43→09:41)
[2019-04-03 06:38] VITALS: BP_SYST 155; BP_SYST 167; BP_DIAS 64; BP_DIAS 73
[2019-04-03] MEDS ORDERED: PANTOPRAZOLE 40 MG TABLET.DR. PO SCH (07:30)
[2019-04-03] MEDS ORDERED: HYDROcodone/APAP 10/325 1 TAB TABLET PO PRN (07:45)
--- NOTE | 2019-04-03 07:54 | PDOC ---
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 Today he is feeling pretty well. C/O Headache Lt > Rt since CEA. It was improved with tylenol. He is concerned about having his testosterone dosing and the timing of restarting his eliquis. I have advised him to wait to dose his testosterone until he has restarted his eliquis. Awaiting renal US, then ok to d/c from medicine perspective. Vitals Vitals Vital Signs Date Time Temp Pulse Resp B/P (MAP) Pulse Ox O2 Delivery O2 Flow Rate FiO2 04/03/19 06:38 155/64 (94) 04/03/19 04:43 67 04/03/19 03:40 97.7 20 97 Nasal Cannula 2.0 97.7 Physical Exam General: Alert, Oriented X3, Cooperative Heart: Other (Irregularly irregular) Lungs: Clear Abdomen: Normal bowel sounds, Soft Extremities: No clubbing, No cyanosis Labs LABS Laboratory Tests Test 04/02/19 13:14 Glucose (Fingerstick) 122 mg/dL (70-99) Comment Review of Relevant I have reviewed the following items viviane (where applicable) has been applied. Labs Laboratory Tests Test 04/02/19 07:20 04/02/19 13:14 White Blood Count 9.0 x10^3/uL (4.0-11.0) Red Blood Count 3.57 x10^6/uL (4.30-5.70) Hemoglobin 11.2 g/dL (13.0-17.5) Hematocrit 34.3 % (39.0-53.0) Mean Corpuscular Volume 96 fL (79-100) Mean Corpuscular Hemoglobin 32 pg (25-35) Mean Corpuscular Hemoglobin Concent 33 g/dL (31-37) Red Cell Distribution Width 16.4 % (11.5-14.5) Platelet Count 269 x10^3/uL (140-400) Neutrophils (%) (Auto) 66 % (31-73) Lymphocytes (%) (Auto) 17 % (24-48) Monocytes (%) (Auto) 9 % (0-9) Eosinophils (%) (Auto) 8 % (0-3) Basophils (%) (Auto) 1 % (0-3) Neutrophils # (Auto) 5.9 x10^3/uL (1.8-7.7) Lymphocytes # (Auto) 1.5 x10^3/uL (1.0-4.8) Monocytes # (Auto) 0.8 x10^3/uL (0.0-1.1) Eosinophils # (Auto) 0.7 x10^3/uL (0.0-0.7) Basophils # (Auto) 0.1 x10^3/uL (0.0-0.2) Sodium Level 135 mmol/L (136-145) Potassium Level 4.5 mmol/L (3.5-5.1) Chloride Level 99 mmol/L (98-107) Carbon Dioxide Level 22 mmol/L (21-32) Anion Gap 14 (6-14) Blood Urea Nitrogen 72 mg/dL (8-26) Creatinine 3.6 mg/dL (0.7-1.3) Estimated GFR (Cockcroft-Gault) 16.5 Glucose Level 104 mg/dL (70-99) Calcium Level 10.1 mg/dL (8.5-10.1) Glucose (Fingerstick) 122 mg/dL (70-99) Laboratory Tests Test 04/02/19 13:14 Glucose (Fingerstick) 122 mg/dL (70-99) Medications Current Medications Ondansetron HCl (Zofran) 4 mg PRN Q6HRS PRN IV NAUSEA/VOMITING; Start 04/02/19 at 07:00; Stop 04/02/19 at 20:00; Status DC Fentanyl Citrate (Fentanyl 2ml Vial) 25 mcg PRN Q5MIN PRN IV MILD PAIN 1-3; Start 04/02/19 at 07:00; Stop 04/02/19 at 20:00; Status DC Fentanyl Citrate (Fentanyl 2ml Vial) 50 mcg PRN Q5MIN PRN IV MODERATE TO SEVERE PAIN Last administered on 04/02/19at 13:29; Start 04/02/19 at 07:00; Stop 04/02/19 at 20:00; Status DC Ringer's Solution 1,000 ml @ 30 mls/hr Q24H IV Last administered on 04/02/19at 09:28; Start 04/02/19 at 07:00; Stop 04/02/19 at 18:59; Status DC Lidocaine HCl (Xylocaine-Mpf 1% 2ml Vial) 2 ml PRN 1X PRN ID PRIOR TO IV START; Start 04/02/19 at 07:00; Stop 04/02/19 at 20:00; Status DC Prochlorperazine Edisylate (Compazine) 5 mg PACU PRN PRN IV NAUSEA, MRX1; Start 04/02/19 at 07:00; Stop 04/02/19 at 20:00; Status DC Vancomycin HCl 250 ml @ 250 mls/hr 1X PREOP PRN IV PRIOR TO PROCEDURE Last administered on 04/02/19at 09:28; Start 04/02/19 at 06:00; Stop 04/02/19 at 18:00; Status DC Heparin Sodium (Porcine) 5000 unit/Ringer's Solution 505 ml @ 505 mls/hr 1X ONCE IRR Last administered on 04/02/19at 10:48; Start 04/02/19 at 06:00; Stop 04/02/19 at 06:59; Status DC Lidocaine HCl 20 ml STK-MED ONCE .ROUTE Last administered on 04/02/19at 10:48; Start 04/02/19 at 09:36; Stop 04/02/19 at 09:36; Status DC Cellulose (Surgicel Fibrillar 1x2) 1 each STK-MED ONCE .ROUTE Last administered on 04/02/19at 11:52; Start 04/02/19 at 09:36; Stop 04/02/19 at 09:36; Status DC Midazolam HCl (Versed) 2 mg STK-MED ONCE .ROUTE ; Start 04/02/19 at 09:41; Stop 04/02/19 at 09:41; Status DC Bupivacaine HCl (Sensorcaine Mpf 0.5%) 30 ml STK-MED ONCE .ROUTE ; Start 04/02/19 at 09:41; Stop 04/02/19 at 09:41; Status DC Epinephrine HCl (Adrenalin) 1 mg STK-MED ONCE .ROUTE ; Start 04/02/19 at 09:41; Stop 04/02/19 at 09:41; Status DC Oxycodone HCl (Roxicodone) 5 mg PRN Q3HRS PRN PO BREAKTHROUGH PAIN Last administered on 04/03/19at 01:05; Start 04/02/19 at 10:00 Labetalol HCl (Normodyne Iv Push) 10 mg PRN Q2HR PRN IVP SBP > 160, 1st CHOICE Last administered on 04/03/19at 04:43; Start 04/02/19 at 10:00 Hydralazine HCl (Apresoline Inj) 10 mg PRN Q2HRS PRN IVP SBP > 160, 2nd CHOICE; Start 04/02/19 at 10:00 Sodium Chloride (Normal Saline Flush) 3 ml QSHIFT PRN IV AFTER MEDS AND BLOOD DRAWS; Start 04/02/19 at 10:00 Sodium Chloride 1,000 ml @ 75 mls/hr [id number] IV Last administered on 04/03/19at 04:16; Start 04/02/19 at 09:56 Morphine Sulfate (Morphine Sulfate) 1 mg PRN Q1HR PRN IV PAIN; Start 04/02/19 at 10:00 Acetaminophen (Tylenol) 650 mg PRN Q6HRS PRN PO Headaches, Temp > 101.5F; Star t 04/02/19 at 10:00 Ondansetron HCl (Zofran) 4 mg PRN Q6HRS PRN IV NAUESA, 1ST CHOICE; Start 04/02/19 at 10:00 Lidocaine HCl 20 ml STK-MED ONCE .ROUTE Last administered on 04/02/19at 10:48; Start 04/02/19 at 10:54; Stop 04/02/19 at 10:55; Status DC Heparin Sodium (Porcine) (Heparin Sodium) 10,000 unit STK-MED ONCE .ROUTE ; Start 04/02/19 at 11:18; Stop 04/02/19 at 11:18; Status DC Labetalol HCl (Normodyne Iv Push) 20 mg 1X ONCE IVP Last administered on 04/02/19at 23:01; Start 04/02/19 at 11:30; Stop 04/02/19 at 11:31; Status DC Esmolol HCl (Brevibloc) 100 mg STK-MED ONCE IVP ; Start 04/02/19 at 11:27; Stop 04/02/19 at 11:27; Status DC Heparin Sodium (Porcine) 5000 unit/Ringer's Solution 505 ml @ 505 mls/hr 1X ONCE IRR Last administered on 04/02/19at 11:45; Start 04/02/19 at 11:45; Stop 04/02/19 at 12:44; Status DC Protamine Sulfate (Protamine) 50 mg STK-MED ONCE IV ; Start 04/02/19 at 11:49; Stop 04/02/19 at 11:50; Status DC Acetaminophen (Tylenol) 500 mg PRN Q6HRS PRN PO MILD PAIN / TEMP Last administered on 04/03/19at 01:04; Start 04/02/19 at 12:30 Allopurinol (Zyloprim) 300 mg DAILY PO ; Start 04/03/19 at 09:00 Amlodipine Besylate (Norvasc) 10 mg DAILY PO ; Start 04/03/19 at 09:00 Clopidogrel Bisulfate (Plavix) 75 mg DAILY PO ; Start 04/03/19 at 09:00 EZETIMIBE (Zetia) 10 mg DAILY PO ; Start 04/03/19 at 09:00 Furosemide (Lasix) 40 mg DAILY PO ; Start 04/03/19 at 09:00 Gemfibrozil (Lopid) 600 mg DAILY PO ; Start 04/03/19 at 09:00 Metoprolol Succinate (Toprol Xl) 100 mg DAILY PO ; Start 04/03/19 at 09:00 Polyethylene Glycol (miraLAX PACKET) 17 gm DAILY PO ; Start 04/03/19 at 09:00 Tamsulosin HCl (Flomax) 0.4 mg HS PO Last administered on 04/02/19at 20:35; Start 04/02/19 at 21:00 Pantoprazole Sodium (Protonix) 40 mg DAILYAC PO ; Start 04/03/19 at 07:30 Losartan Potassium (Cozaar) 100 mg DAILY PO ; Start 04/03/19 at 09:00 Acetaminophen/ Hydrocodone Bitart (Lortab 10/325) 1 tab PRN Q6HRS PRN PO PAIN; Start 04/03/19 at 07:45 Ascorbic Acid (Vitamin C) 1,000 mg DAILY PO ; Start 04/03/19 at 09:00 Multivitamins (Thera M Plus) 1 tab DAILY PO ; Start 04/03/19 at 09:00 Non-Formulary Medication (Ubidecarenone (Co Q-10)) 200 mg DAILY PO ; Start 04/03/19 at 09:00; Status UNV Non-Formulary Medication (Vit A/Vit C/Vit E/Zinc/Copper (Preservision Areds Tablet)) 1 each DAILY PO ; Start 04/03/19 at 09:00; Status UNV Active Scripts Active Acetaminophen 500 Mg Tablet 500 Mg PO PRN Q6HRS PRN 14 Days Eliquis (Apixaban) 5 Mg Tablet 5 Mg PO BID 30 Days Reported Miralax (Polyethylene Glycol 3350) 17 Gm Powd.pack 1 Pkt PO DAILY Hydrocodone-Apap 10-325 (Hydrocodone Bit/Acetaminophen) 1 Tab Tablet 1 Tab PO PRN Q6HRS PRN Preservision Areds Tablet (Vit A/Vit C/Vit E/Zinc/Copper) 1 Each Tablet 1 Each PO DAILY Allopurinol 300 Mg Tablet 300 Mg PO DAILY Furosemide 40 Mg Tablet 40 Mg PO DAILY Toprol Xl (Metoprolol Succinate) 50 Mg Tab.er.24h 100 Mg PO DAILY Flomax (Tamsulosin Hcl) 0.4 Mg Cap.er.24h 1 Cap PO HS Amlodipine Besylate 5 Mg Tablet 10 Mg PO DAILY Testosterone Cypionate 200 Mg/1 Ml Vial 1 Ml IM [id number] Clopidogrel (Clopidogrel Bisulfate) 75 Mg Tablet 1 Tab PO DAILY Vitamin C (Ascorbic Acid) 1,000 Mg Tablet 1,000 Mg PO DAILY Co Q-10 (Ubidecarenone) 200 Mg Capsule 200 Mg PO DAILY Krill Oil 500 Mg Capsule 500 Mg PO Multi-Vitamin Daily (Multivitamin) 1 Each Tablet 1 Each PO DAILY Gemfibrozil 600 Mg Tablet 1 Tab PO DAILY Zetia (Ezetimibe) 10 Mg Tablet 1 Tab PO DAILY Losartan Potassium 100 Mg Tablet 100 Mg PO DAILY Nexium Capsule (Esomeprazole Magnesium) 40 Mg Capsule.dr 1 Cap PO DAILY Vitals/I & O Vital Sign - Last 24 Hours 04/02/19 04/02/19 04/02/19 04/02/19 09:16 09:21 12:26 12:26 Temp 98.8 98.8 98.1 98.8 98.8 98.1 Pulse 78 78 71 Resp 16 16 18 B/P (MAP) 154/74 155/56 151/54 Pulse Ox 97 97 94 O2 Delivery Room Air Nasal Cannula Nasal Cannula O2 Flow Rate 2 2 04/02/19 04/02/19 04/02/19 04/02/19 12:28 12:40 12:49 12:55 Pulse 63 80 Resp 14 14 14 B/P (MAP) 140/65 150/56 143/53 Pulse Ox 93 94 93 O2 Delivery Nasal Cannula Nasal Cannula Nasal Cannula Nasal Cannula O2 Flow Rate 2 2 2.0 2 04/02/19 04/02/19 04/02/19 04/02/19 13:10 13:19 13:25 13:29 Temp 99.2 99.2 Pulse 80 80 Resp 14 14 14 14 B/P (MAP) 137/69 137/69 150/68 150/68 Pulse Ox 93 93 93 95 O2 Delivery Nasal Cannula Nasal Cannula Nasal Cannula Nasal Cannula O2 Flow Rate 2 2.0 2 2.0 04/02/19 04/02/19 04/02/19 04/02/19 13:40 13:40 14:00 14:32 Temp 99.2 97.6 99.2 97.6 Pulse 80 67 Resp 14 20 B/P (MAP) 137/69 151/61 (91) 150/68 Pulse Ox 93 95 O2 Delivery Nasal Cannula Nasal Cannula Nasal Cannula Nasal Cannula O2 Flow Rate 2 2 2.0 2.0 04/02/19 04/02/19 04/02/19 04/02/19 15:37 19:25 19:46 20:36 Temp 97.8 97.8 Pulse 73 Resp 20 20 B/P (MAP) 149/66 (93) Pulse Ox 95 92 O2 Delivery Nasal Cannula Room Air Nasal Cannula Room Air O2 Flow Rate 2.0 2.0 04/02/19 04/02/19 04/02/19 04/03/19 21:36 23:00 23:01 00:51 Temp 97.9 97.9 Pulse 68 70 Resp 20 B/P (MAP) 172/66 (101) 172/66 154/69 (97) Pulse Ox 96 O2 Delivery Room Air Nasal Cannula O2 Flow Rate 2.0 04/03/19 04/03/19 04/03/19 04/03/19 01:05 02:05 03:40 04:43 Temp 97.7 97.7 Pulse 72 67 Resp 20 B/P (MAP) 161/84 (109) 164/59 Pulse Ox 97 O2 Delivery Nasal Cannula Nasal Cannula Nasal Cannula O2 Flow Rate 2.0 2.0 2.0 04/03/19 06:38 B/P (MAP) 155/64 (94) Intake and Output 04/02/19 04/02/19 04/03/19 15:00 23:00 07:00 Intake Total 1955 ml 204 ml 1600 ml Output Total 65 ml 300 ml 610 ml Balance 1890 ml -96 ml 990 ml SUHAS BASS MD Apr 03, 2019 07:54
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
[2019-04-03] MEDS ORDERED: GEMFIBROZIL 600 MG TABLET. PO SCH (09:00)
[2019-04-03] MEDS ORDERED: MULTIVITAMIN I-VITE TABLET. PO SCH (09:00)
[2019-04-03] MEDS ORDERED: POLYETHYLENE GLYCOL 3350 17 GM PACKET. PO SCH (09:00)
[2019-04-03] MEDS ORDERED: ALLOPURINOL 300 MG TABLET. PO SCH (09:00)
[2019-04-03] MEDS ORDERED: LOSARTAN POTASSIUM 50 MG TABLET. PO SCH (09:00)
[2019-04-03] MEDS ORDERED: ASCORBIC ACID 500 MG TABLET PO SCH (09:00)
[2019-04-03] MEDS ORDERED: FUROSEMIDE 40 MG TABLET. PO SCH (09:00)
[2019-04-03] MEDS ORDERED: EZETIMIBE 10 MG TABLET. PO SCH (09:00)
[2019-04-03] MEDS ORDERED: amLODIPine BESYLATE 5 MG TABLET PO SCH (09:00)
[2019-04-03] MEDS ORDERED: MULTIVITAMIN with MINERAL TABLET. PO SCH (09:00)
[2019-04-03] MEDS ORDERED: METOPROLOL SUCC 24HR ER 100 MG TAB.ER.24H. PO SCH (09:00)
[2019-04-03] MEDS ORDERED: CLOPIDOGREL BISULFATE 75 MG TABLET PO SCH (09:00)
[2019-04-03] MEDS ORDERED: NON FORMULARY ITEM (Ubidecarenone (Co Q-10) 200 MG) PO SCH (09:00)
[2019-04-03 09:31] LABS: GFR 20.3; POTASSIUM 4.5 mmol/L (3.5-5.1)
--- NOTE | 2019-04-03 09:52 | PDOC2 ---
CONSULT Date of Consult Date of Consult DATE: 04/03/19 TIME: 09:29 Reason for Consult Reason for Consult: DANNA Identification/Chief Complaint Chief Complaint Headache Source Source: Chart review, Patient History of Present Illness Reason for Visit: Pt is 79 yo CM underwent a left carotid endarterectomy on 04/02 He has been hospitalized x2 this year - for acute on chronic systolic heart failure and AFIB/flutter and again for complaints of bilateral LE weakness and slurred speech. He has CKD stage [address] Stewart. Denies any CP, SOB. No N/V/D. He states doesn't have a good stream , has good UOP. reports Prostate med was switched as the previous one was expensive. . Pt noticed some increased LE edema and wt gain and was advised by Covering Machine Operator to take extra Lasix (BID from QD )- Pt took BiD for last 3 days prior to admission and approx 4-5 weeks back. Labs done as OP in December -BUN 49 and Cr 2.29 C/O Headache Lt > Rt since CEA No NSAID use Past Medical History Cardiovascular: CAD, HTN, Hyperlipidemia, Valve insufficiency, Other GI: Constipation, GERD Hepatobiliary: No pertinent hx Psych: No pertinent hx Musculoskeletal: Osteoarthritis Rheumatologic: Gout Infectious disease: No pertinent hx Renal/: Chronic renal insuff, Benign prostatic enlarg. Past Surgical History Past Surgical History: Arthroscopy, CABG, Total hip replacement, Other Family History Family History: Heart Disease Social History ALCOHOL: none Drugs: None Lives: with Family Current Medications Current Medications Current Medications Ondansetron HCl (Zofran) 4 mg PRN Q6HRS PRN IV NAUSEA/VOMITING; Start 04/02/19 at 07:00; Stop 04/02/19 at 20:00; Status DC Fentanyl Citrate (Fentanyl 2ml Vial) 25 mcg PRN Q5MIN PRN IV MILD PAIN 1-3; Start 04/02/19 at 07:00; Stop 04/02/19 at 20:00; Status DC Fentanyl Citrate (Fentanyl 2ml Vial) 50 mcg PRN Q5MIN PRN IV MODERATE TO SEVERE PAIN Last administered on 04/02/19at 13:29; Start 04/02/19 at 07:00; Stop 04/02/19 at 20:00; Status DC Ringer's Solution 1,000 ml @ 30 mls/hr Q24H IV Last administered on 04/02/19at 09:28; Start 04/02/19 at 07:00; Stop 04/02/19 at 18:59; Status DC Lidocaine HCl (Xylocaine-Mpf 1% 2ml Vial) 2 ml PRN 1X PRN ID PRIOR TO IV START; Start 04/02/19 at 07:00; Stop 04/02/19 at 20:00; Status DC Prochlorperazine Edisylate (Compazine) 5 mg PACU PRN PRN IV NAUSEA, MRX1; Start 04/02/19 at 07:00; Stop 04/02/19 at 20:00; Status DC Vancomycin HCl 250 ml @ 250 mls/hr 1X PREOP PRN IV PRIOR TO PROCEDURE Last administered on 04/02/19at 09:28; Start 04/02/19 at 06:00; Stop 04/02/19 at 18:00; Status DC Heparin Sodium (Porcine) 5000 unit/Ringer's Solution 505 ml @ 505 mls/hr 1X ONCE IRR Last administered on 04/02/19at 10:48; Start 04/02/19 at 06:00; Stop 04/02/19 at 06:59; Status DC Lidocaine HCl 20 ml STK-MED ONCE .ROUTE Last administered on 04/02/19at 10:48; Start 04/02/19 at 09:36; Stop 04/02/19 at 09:36; Status DC Cellulose (Surgicel Fibrillar 1x2) 1 each STK-MED ONCE .ROUTE Last administered on 04/02/19at 11:52; Start 04/02/19 at 09:36; Stop 04/02/19 at 09:36; Status DC Midazolam HCl (Versed) 2 mg STK-MED ONCE .ROUTE ; Start 04/02/19 at 09:41; Stop 04/02/19 at 09:41; Status DC Bupivacaine HCl (Sensorcaine Mpf 0.5%) 30 ml STK-MED ONCE .ROUTE ; Start 04/02/19 at 09:41; Stop 04/02/19 at 09:41; Status DC Epinephrine HCl (Adrenalin) 1 mg STK-MED ONCE .ROUTE ; Start 04/02/19 at 09:41; Stop 04/02/19 at 09:41; Status DC Oxycodone HCl (Roxicodone) 5 mg PRN Q3HRS PRN PO BREAKTHROUGH PAIN Last administered on 04/03/19at 01:05; Start 04/02/19 at 10:00 Labetalol HCl (Normodyne Iv Push) 10 mg PRN Q2HR PRN IVP SBP > 160, 1st CHOICE Last administered on 04/03/19at 04:43; Start 04/02/19 at 10:00 Hydralazine HCl (Apresoline Inj) 10 mg PRN Q2HRS PRN IVP SBP > 160, 2nd CHOICE; Start 04/02/19 at 10:00 Sodium Chloride (Normal Saline Flush) 3 ml QSHIFT PRN IV AFTER MEDS AND BLOOD DRAWS; Start 04/02/19 at 10:00 Sodium Chloride 1,000 ml @ 75 mls/hr [id number] IV Last administered on 04/03/19at 04:16; Start 04/02/19 at 09:56 Morphine Sulfate (Morphine Sulfate) 1 mg PRN Q1HR PRN IV PAIN; Start 04/02/19 at 10:00 Acetaminophen (Tylenol) 650 mg PRN Q6HRS PRN PO Headaches, Temp > 101.5F; Start 04/02/19 at 10:00 Ondansetron HCl (Zofran) 4 mg PRN Q6HRS PRN IV NAUESA, 1ST CHOICE; Start 04/02/19 at 10:00 Lidocaine HCl 20 ml STK-MED ONCE .ROUTE Last administered on 04/02/19at 10:48; Start 04/02/19 at 10:54; Stop 04/02/19 at 10:55; Status DC Heparin Sodium (Porcine) (Heparin Sodium) 10,000 unit STK-MED ONCE .ROUTE ; Start 04/02/19 at 11:18; Stop 04/02/19 at 11:18; Status DC Labetalol HCl (Normodyne Iv Push) 20 mg 1X ONCE IVP Last administered on 04/02/19at 23:01; Start 04/02/19 at 11:30; Stop 04/02/19 at 11:31; Status DC Esmolol HCl (Brevibloc) 100 mg STK-MED ONCE IVP ; Start 04/02/19 at 11:27; Stop 04/02/19 at 11:27; Status DC Heparin Sodium (Porcine) 5000 unit/Ringer's Solution 505 ml @ 505 mls/hr 1X ONCE IRR Last administered on 04/02/19at 11:45; Start 04/02/19 at 11:45; Stop 04/02/19 at 12:44; Status DC Protamine Sulfate (Protamine) 50 mg STK-MED ONCE IV ; Start 04/02/19 at 11:49; Stop 04/02/19 at 11:50; Status DC Acetaminophen (Tylenol) 500 mg PRN Q6HRS PRN PO MILD PAIN / TEMP Last administered on 04/03/19at 01:04; Start 04/02/19 at 12:30 Allopurinol (Zyloprim) 300 mg DAILY PO ; Start 04/03/19 at 09:00 Amlodipine Besylate (Norvasc) 10 mg DAILY PO ; Start 04/03/19 at 09:00 Clopidogrel Bisulfate (Plavix) 75 mg DAILY PO ; Start 04/03/19 at 09:00 EZETIMIBE (Zetia) 10 mg DAILY PO ; Start 04/03/19 at 09:00 Furosemide (Lasix) 40 mg DAILY PO ; Start 04/03/19 at 09:00 Gemfibrozil (Lopid) 600 mg DAILY PO ; Start 04/03/19 at 09:00 Metoprolol Succinate (Toprol Xl) 100 mg DAILY PO ; Start 04/03/19 at 09:00 Polyethylene Glycol (miraLAX PACKET) 17 gm DAILY PO ; Start 04/03/19 at 09:00 Tamsulosin HCl (Flomax) 0.4 mg HS PO Last administered on 04/02/19at 20:35; Start 04/02/19 at 21:00 Pantoprazole Sodium (Protonix) 40 mg DAILYAC PO ; Start 04/03/19 at 07:30 Losartan Potassium (Cozaar) 100 mg DAILY PO ; Start 04/03/19 at 09:00 Acetaminophen/ Hydrocodone Bitart (Lortab 10/325) 1 tab PRN Q6HRS PRN PO PAIN; Start 04/03/19 at 07:45 Ascorbic Acid (Vitamin C) 1,000 mg DAILY PO ; Start 04/03/19 at 09:00 Multivitamins (Thera M Plus) 1 tab DAILY PO ; Start 04/03/19 at 09:00 Non-Formulary Medication (Ubidecarenone (Co Q-10)) 200 mg DAILY PO ; Start 04/03/19 at 09:00; Status UNV Multivitamins/ Minerals (I-Rehana) 1 tab DAILY PO ; Start 04/03/19 at 09:00 Active Scripts Active Acetaminophen 500 Mg Tablet 500 Mg PO PRN Q6HRS PRN 14 Days Eliquis (Apixaban) 5 Mg Tablet 5 Mg PO BID 30 Days Reported Miralax (Polyethylene Glycol 3350) 17 Gm Powd.pack 1 Pkt PO DAILY Hydrocodone-Apap 10-325 (Hydrocodone Bit/Acetaminophen) 1 Tab Tablet 1 Tab PO PRN Q6HRS PRN Preservision Areds Tablet (Vit A/Vit C/Vit E/Zinc/Copper) 1 Each Tablet 1 Each PO DAILY Allopurinol 300 Mg Tablet 300 Mg PO DAILY Furosemide 40 Mg Tablet 40 Mg PO DAILY Toprol Xl (Metoprolol Succinate) 50 Mg Tab.er.24h 100 Mg PO DAILY Flomax (Tamsulosin Hcl) 0.4 Mg Cap.er.24h 1 Cap PO HS Amlodipine Besylate 5 Mg Tablet 10 Mg PO DAILY Testosterone Cypionate 200 Mg/1 Ml Vial 1 Ml IM [id number] Clopidogrel (Clopidogrel Bisulfate) 75 Mg Tablet 1 Tab PO DAILY Vitamin C (Ascorbic Acid) 1,000 Mg Tablet 1,000 Mg PO DAILY Co Q-10 (Ubidecarenone) 200 Mg Capsule 200 Mg PO DAILY Krill Oil 500 Mg Capsule 500 Mg PO Multi-Vitamin Daily (Multivitamin) 1 Each Tablet 1 Each PO DAILY Gemfibrozil 600 Mg Tablet 1 Tab PO DAILY Zetia (Ezetimibe) 10 Mg Tablet 1 Tab PO DAILY Losartan Potassium 100 Mg Tablet 100 Mg PO DAILY Nexium Capsule (Esomeprazole Magnesium) 40 Mg Capsule. 1 Cap PO DAILY Allergies Allergies: Coded Allergies: Penicillins (Verified Allergy, Intermediate, rash, 03/28/19) amiodarone (Verified Allergy, Intermediate, Unknown, 03/28/19) tramadol (Verified Adverse Reaction, Intermediate, "depressed", 03/28/19) ROS Review of System Per HPI Physical Exam Physical Exam General appearance NAD HEENT: Right eye blind(Traumatic), OM moist Neck supple Cardiovascular: S1, S2, RRR Pulmonary: Clear to auscultation bilaterally, No accessory muscle use Abdomen: nontender, and nondistended. Extremities: Trace edema NeUro - Grossly normal No Rangel, No SP/CVA tenderness Skin No Rash or any other lesion Vital Signs Vital Signs Date Time Temp Pulse Resp B/P (MAP) Pulse Ox O2 Delivery O2 Flow Rate FiO2 04/03/19 06:38 97.8 77 22 167/73 (104) 98 Nasal Cannula 2.0 97.8 Assessment & Plan DANNA - Suspect Pre-renal sec to ?Diuretics Cr peaked at 3.6, improving - not at baseline Rule out RASMUSSEN- will get renal US E-Lytes stable CKD stage 3 - Follows with Dr. 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 Chronic systolic/diastolic CHF; appears compensated ICM; LVEF30% per echo CAD: CABGx2 in 2010. Recent MPI Hypertension; controlled Diabetes, II PAD -left foot ulcer: s/p percutaneous revascularization 04/2018. Pulmonary HTN; PAP 50 mmHg If Dced recommend follow up BMP with PCP or Renal as OP in 5-7 days Dc per primary Discussed with Pt and at bedside Labs Labs Laboratory Tests Test 04/02/19 07:20 04/02/19 13:14 White Blood Count 9.0 x10^3/uL (4.0-11.0) Red Blood Count 3.57 x10^6/uL (4.30-5.70) Hemoglobin 11.2 g/dL (13.0-17.5) Hematocrit 34.3 % (39.0-53.0) Mean Corpuscular Volume 96 fL (79-100) Mean Corpuscular Hemoglobin 32 pg (25-35) Mean Corpuscular Hemoglobin Concent 33 g/dL (31-37) Red Cell Distribution Width 16.4 % (11.5-14.5) Platelet Count 269 x10^3/uL (140-400) Neutrophils (%) (Auto) 66 % (31-73) Lymphocytes (%) (Auto) 17 % (24-48) Monocytes (%) (Auto) 9 % (0-9) Eosinophils (%) (Auto) 8 % (0-3) Basophils (%) (Auto) 1 % (0-3) Neutrophils # (Auto) 5.9 x10^3/uL (1.8-7.7) Lymphocytes # (Auto) 1.5 x10^3/uL (1.0-4.8) Monocytes # (Auto) 0.8 x10^3/uL (0.0-1.1) Eosinophils # (Auto) 0.7 x10^3/uL (0.0-0.7) Basophils # (Auto) 0.1 x10^3/uL (0.0-0.2) Sodium Level 135 mmol/L (136-145) Potassium Level 4.5 mmol/L (3.5-5.1) Chloride Level 99 mmol/L (98-107) Carbon Dioxide Level 22 mmol/L (21-32) Anion Gap 14 (6-14) Blood Urea Nitrogen 72 mg/dL (8-26) Creatinine 3.6 mg/dL (0.7-1.3) Estimated GFR (Cockcroft-Gault) 16.5 Glucose Level 104 mg/dL (70-99) Calcium Level 10.1 mg/dL (8.5-10.1) Glucose (Fingerstick) 122 mg/dL (70-99) Laboratory Tests Test 04/02/19 13:14 Glucose (Fingerstick) 122 mg/dL (70-99) Review All relevant outside records, renal labs, imaging studies, telemetry/EKG's were reviewed. JOSÉ MIGUEL MUNOZ MD Apr 03, 2019 09:52
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
[2019-04-03 11:05] VITALS: BP 149/67
--- NOTE | 2019-04-03 11:25 | NUR ---
SS following for discharge planning. SS reviewed pt chart. Pt is from home with spouse and is currently requiring oxygen. Pt has had previous longterm stay at [facility] in the past. SS will continue to follow for discharge planning.
[2019-04-03 15:00] VITALS: BP 151/62
--- NOTE | 2019-04-03 16:56 | RAD ---
Examination: RENAL COMPLETE BILATERAL History: Acute renal insufficiency on chronic kidney disease Comparison/Correlation: None Findings: Right kidney measures 12 cm x 5.15 cm x 5 cm. Left kidney measures 12.76 cm x 5.864 cm x 4.91 cm. No hydronephrosis. Right renal simple cyst at the interpolar region laterally is present measuring 2.6 cm x 2.7 cm x 2.6 cm. Renal cortical echotexture is unremarkable. No definite nephrolithiasis. Urinary bladder is mostly decompressed with a volume of 186 cc. Small urinary bladder postvoid residual of 36.8 cc is noted. Impression: No hydronephrosis. Electronically signed by: Kevan Amador MD (04/03/2019 4:53 PM) [facility]
[2019-04-03] MEDS ORDERED: NON FORMULARY ITEM IM ONE (18:15)
--- NOTE | 2019-04-03 18:54 | NUR ---
Discharge Note: KATHRYN MEEKS ELDRIDGE Discharge instructions and discharge home medications reviewed with Patient and a copy given. All questions have been answered and understanding verbalized. The following instructions and handouts were given: patient visit report, medication information, education. Discontinued lines and drains: peripheral IV, tip intact. Patient discharged to home with self care via private vehicle. Patient left unit awake, in stable condition with all personal belongings.
== END 2019-04-03 18:25 | disposition home or self-care (01) | DRG 37 ==
LOC: OPSVCIP 08:43 → 2 NORTH 14:23
PROVIDERS: ADMIT Surgery; ATTEND Surgery
PROC: 03CJ0ZZ Extirpation of Matter from Left Common Carotid Artery, Open Approach (ICD-10-PCS; 2019-04-02)
PROC: 03CN0ZZ Extirpation of Matter from Left External Carotid Artery, Open Approach (ICD-10-PCS; 2019-04-02)
PROC: 03CL0ZZ Extirpation of Matter from Left Internal Carotid Artery, Open Approach (ICD-10-PCS; principal; 2019-04-02 10:30)
DX: I65.23 Occlusion and stenosis of bilateral carotid arteries (principal); N17.0 Acute kidney failure with tubular necrosis; I13.0 Hypertensive heart and chronic kidney disease with heart failure and stage 1 through stage 4 chronic kidney disease, or unspecified chronic kidney disease; I50.22 Chronic systolic (congestive) heart failure; E78.5 Hyperlipidemia, unspecified; I25.10 Atherosclerotic heart disease of native coronary artery without angina pectoris; I48.91 Unspecified atrial fibrillation; K21.9 Gastro-esophageal reflux disease without esophagitis; N18.3 Chronic kidney disease, stage 3 (moderate); Z82.49 Family history of ischemic heart disease and other diseases of the circulatory system; Z86.73 Personal history of transient ischemic attack (TIA), and cerebral infarction without residual deficits; Z95.1 Presence of aortocoronary bypass graft; Z96.649 Presence of unspecified artificial hip joint; M10.9 Gout, unspecified; M19.90 Unspecified osteoarthritis, unspecified site; Z79.899 Other long term (current) drug therapy; Z88.0 Allergy status to penicillin; Z88.8 Allergy status to other drugs, medicaments and biological substances
CPT/HCPCS: 36415; 76770; 80048; 82962; 83880; 85025; J0171; J1644; J2250; J3010; J3370; J3490; J7030; J7120; G0378

== ENCOUNTER 2019-04-13 15:08 | Inpatient (IN) | payer MEDICARE ==
[~2019-04-13] VITALS: Ht 182.9 cm; Wt 99.8 kg
[~2019-04-13 15:08] MED LIST changes: +VITA-8 PO; -VITA400C36 PO
[2019-04-13 16:04] LABS: BILIRUBIN,URINE NEGATIVE (NEG); CLARITY,URINE CLEAR; COLOR,URINE YELLOW; NITRITE,URINE NEGATIVE (NEG); PROTEIN,URINE NEGATIVE (NEG-TRACE); UROBILINOGEN,URINE 0.2 mg/dL (0.2 mg/dL)
--- NOTE | 2019-04-13 16:06 | EKG ---
[facility] [address] [place] [address] Test Date: 2019-04-13 Test Time: 15:45:52 Pat Name: KATHRYN MEEKS Department: Room: Gender: M Senior Network Engineer: : 1940 Requested By: AKSHAT PIMENTEL Order Number: [id number] Reading MD: Abhi Richter MD Measurements Intervals [place] Rate: 72 P: CA: QRS: 50 QRSD: 108 T: -174 QT: 424 QTc: 466 Interpretive Statements ATRIAL FIBRILLATION Electronically Signed On 04-30-2019 8:32:52 [employer]ODUCTION OR PLANT ENGINEER by Abhi Richter MD
[2019-04-13 16:10] LABS: BARBITURATES NEG (NEG); BENZODIAZEPINES NEG (NEG); CANNABINOIDS NEG (NEG); COCAINE NEG (NEG); METHADONE NEG (NEG); OPIATES POS (NEG); PHENCYCLIDINE NEG (NEG)
[2019-04-13 16:12] LABS: AMPHETAMINE/METHAMPHETAMINE NEG (NEG)
[2019-04-13 16:13] LABS: BACTERIA,URINE 0 /HPF (0-FEW); RBC,URINE 0 /HPF (0-2); WBC,URINE 0 /HPF (0-4)
[2019-04-13 16:13] LABS: BASO % 1 % (0-3); EOS # 0.5 x10^3/uL (0.0-0.7); EOS % 6 % (0-3); HEMATOCRIT 31.4 % (39.0-53.0); HEMOGLOBIN 10.2 g/dL (13.0-17.5); LYMPH # 1.2 x10^3/uL (1.0-4.8); LYMPH % 15 % (24-48); MEAN CORPUSCULAR HEMOGLOBIN 31 pg (25-35); MEAN CORPUSCULAR HGB CONC 32 g/dL (31-37); MEAN CORPUSCULAR VOLUME 96 fL (79-100); MONO # 0.7 x10^3/uL (0.0-1.1); MONO % 9 % (0-9); NEUT # 5.5 x10^3/uL (1.8-7.7); NEUT % 70 % (31-73); PLATELET COUNT 307 x10^3/uL (140-400); RED BLOOD COUNT 3.28 x10^6/uL (4.30-5.70); RED CELL DISTRIBUTION WIDTH 16.6 % (11.5-14.5); WHITE BLOOD COUNT 7.9 x10^3/uL (4.0-11.0)
--- NOTE | 2019-04-13 16:16 | RAD ---
EXAM: Chest, single view. HISTORY: Swelling. COMPARISON: 09/26/2018 FINDINGS: A frontal view of the chest is obtained. There is stable bilateral midthoracic opacity likely due to pleural parenchymal scarring or pleural plaque. There is no infiltrate, pleural effusion or pneumothorax. There is a stable prominent cardiac silhouette and evidence of prior mediastinal surgery. IMPRESSION: Stable opacity overlying the bilateral mid thorax due to suspected pleural parenchymal scarring or calcified pleural plaque. Electronically signed by: Adeline Choudhury MD (04/13/2019 4:13 PM) [place] [id number]
[2019-04-13 16:24] LABS: CALCIUM 9.5 mg/dL (8.5-10.1); CREATININE 4.3 mg/dL (0.7-1.3); GFR 13.4; POTASSIUM 4.8 mmol/L (3.5-5.1)
[2019-04-13] MEDS ORDERED: NITROGLYCERIN SUBLINGUAL 0.4 MG BOTTLE OF 25. SL PRN (16:30)
[2019-04-13] MEDS ORDERED: ONDANSETRON PF 4 MG/2 ML VIAL. IV PRN (16:30)
[2019-04-13] MEDS ORDERED: ACETAMINOPHEN 325 MG TABLET. PO PRN (16:30)
[2019-04-13] MEDS ORDERED: fentaNYL PF VIAL 100 MCG/2 ML VIAL IV PRN (16:30)
[2019-04-13 16:32] LABS: ALBUMIN 3.6 g/dL (3.4-5.0); ALBUMIN/GLOBULIN RATIO 0.9 (1.0-1.7); MAGNESIUM 2.8 mg/dL (1.8-2.4); TOTAL BILIRUBIN 0.5 mg/dL (0.2-1.0); TOTAL PROTEIN 7.7 g/dL (6.4-8.2)
[2019-04-13 16:40] LABS: CREATINE KINASE 65 U/L (39-308)
--- NOTE | 2019-04-13 16:42 | PDOC1 ---
History and Physical Date of Admission Date of Admission DATE: 04/13/19 TIME: 16:35 Identification/Chief Complaint Chief Complaint sent from cardio office bec of SOA, leg edema and creat 4 plus Source Source: Caregiver, Chart review, Patient History of Present Illness History of Present Illness Very pleasant 79 white male, accompanied by equally pleasant , was at cardiology office for chf ff up with leg edema, soa, lasix from 40 PO qd was doubled then now tripled dose with improvement of leg edema but VRETA noW 4 plus. mentions to me duing CEA by DR Gonzalez here 04/02, creat was [address] Sow was on board. MAking good uO, CXR shows interstitial edema, VS ok, FULL CODE< no pain, no CP, not in distress., Will admit for need of continued diuresis with close watch of renal fcn CVC bed pls preferably Past Medical History Cardiovascular: CAD, HTN, Hyperlipidemia, Valve insufficiency, Other GI: Constipation, GERD Hepatobiliary: No pertinent hx Psych: No pertinent hx Musculoskeletal: Osteoarthritis Rheumatologic: Gout Infectious disease: No pertinent hx Renal/: Chronic renal insuff, Benign prostatic enlarg. Past Surgical History Past Surgical History: Arthroscopy, CABG, Total hip replacement, Other Family History Family History: Heart Disease Social History Smoke: No ALCOHOL: none Drugs: None Current Medications Current Medications Current Medications Ondansetron HCl (Zofran) 4 mg PRN Q8HRS PRN IV NAUSEA/VOMITING; Start 04/13/19 at 16:30; Stop 04/14/19 at 16:29 Fentanyl Citrate (Fentanyl 2ml Vial) 50 mcg PRN Q1HR PRN IV PAIN; Start 04/13/19 at 16:30; Stop 04/14/19 at 16:29 Acetaminophen (Tylenol) 650 mg PRN Q4HRS PRN PO FEVER; Start 04/13/19 at 16:30; Stop 04/14/19 at 16:29 Nitroglycerin (Nitrostat) 0.4 mg PRN Q5MIN PRN SL CHEST PAIN; Start 04/13/19 at 16:30; Stop 04/14/19 at 16:29 Acetaminophen (Tylenol) 500 mg PRN Q6HRS PRN PO MILD PAIN / TEMP; Start 04/13/19 at 16:45; Status UNV Allopurinol (Zyloprim) 300 mg DAILY PO ; Start 04/14/19 at 09:00; Status UNV Amlodipine Besylate (Norvasc) 10 mg DAILY PO ; Start 04/14/19 at 09:00; Status UNV Apixaban (Eliquis) 5 mg BID PO ; Start 04/13/19 at 21:00; Status UNV Clopidogrel Bisulfate (Plavix) 75 mg DAILY PO ; Start 04/14/19 at 09:00; Status UNV EZETIMIBE (Zetia) 10 mg DAILY PO ; Start 04/14/19 at 09:00; Status UNV Furosemide (Lasix) 40 mg DAILY PO ; Start 04/14/19 at 09:00; Status UNV Gemfibrozil (Lopid) 600 mg DAILY PO ; Start 04/14/19 at 09:00; Status UNV Acetaminophen/ Hydrocodone Bitart (Lortab 10/325) 1 tab PRN Q6HRS PRN PO PAIN; Start 04/13/19 at 16:45; Status UNV Metoprolol Succinate (Toprol Xl) 100 mg DAILY PO ; Start 04/14/19 at 09:00; Status UNV Polyethylene Glycol (miraLAX PACKET) 17 gm DAILY PO ; Start 04/14/19 at 09:00; Status UNV Tamsulosin HCl (Flomax) 0.4 mg HS PO ; Start 04/13/19 at 21:00; Status UNV Non-Formulary Medication (Ascorbic Acid (Vitamin C)) 1,000 mg DAILY PO ; Start 04/14/19 at 09:00; Status UNV Non-Formulary Medication (Esomeprazole Magnesium (Nexium Capsule)) 1 cap DAILY PO ; Start 04/14/19 at 09:00; Status UNV Non-Formulary Medication (Multivitamin (Multi-Vitamin Daily)) 1 each DAILY PO ; Start 04/14/19 at 09:00; Status UNV Non-Formulary Medication (Ubidecarenone (Co Q-10)) 200 mg DAILY PO ; Start 04/14/19 at 09:00; Status UNV Non-Formulary Medication (Vit A/Vit C/Vit E/Zinc/Copper (Preservision Areds Tablet)) 1 each DAILY PO ; Start 04/14/19 at 09:00; Status UNV Active Scripts Active Acetaminophen 500 Mg Tablet 500 Mg PO PRN Q6HRS PRN 14 Days Eliquis (Apixaban) 5 Mg Tablet 5 Mg PO BID 30 Days Reported Miralax (Polyethylene Glycol 3350) 17 Gm Powd.pack 1 Pkt PO DAILY Hydrocodone-Apap 10-325 (Hydrocodone Bit/Acetaminophen) 1 Tab Tablet 1 Tab PO PRN Q6HRS PRN Preservision Areds Tablet (Vit A/Vit C/Vit E/Zinc/Copper) 1 Each Tablet 1 Each PO DAILY Allopurinol 300 Mg Tablet 300 Mg PO DAILY Furosemide 40 Mg Tablet 40 Mg PO DAILY Toprol Xl (Metoprolol Succinate) 50 Mg Tab.er.24h 100 Mg PO DAILY Flomax (Tamsulosin Hcl) 0.4 Mg Cap.er.24h 1 Cap PO HS Amlodipine Besylate 5 Mg Tablet 10 Mg PO DAILY Testosterone Cypionate 200 Mg/1 Ml Vial 1 Ml IM [id number] Clopidogrel (Clopidogrel Bisulfate) 75 Mg Tablet 1 Tab PO DAILY Vitamin C (Ascorbic Acid) 1,000 Mg Tablet 1,000 Mg PO DAILY Co Q-10 (Ubidecarenone) 200 Mg Capsule 200 Mg PO DAILY Krill Oil 500 Mg Capsule 500 Mg PO Multi-Vitamin Daily (Multivitamin) 1 Each Tablet 1 Each PO DAILY Gemfibrozil 600 Mg Tablet 1 Tab PO DAILY Zetia (Ezetimibe) 10 Mg Tablet 1 Tab PO DAILY Losartan Potassium 100 Mg Tablet 100 Mg PO DAILY Nexium Capsule (Esomeprazole Magnesium) 40 Mg Capsule. 1 Cap PO DAILY Allergies Allergies: Coded Allergies: Penicillins (Verified Allergy, Intermediate, rash, 03/28/19) amiodarone (Verified Allergy, Intermediate, Unknown, 03/28/19) tramadol (Verified Adverse Reaction, Intermediate, "depressed", 03/28/19) ROS Review of System leg edema, clear cough,soa, no cp, there is weight gain, all else 14 pt neg Physical Exam General: Alert, Oriented X3, Cooperative, No acute distress HEENT: Atraumatic, PERRLA, EOMI, Mucous membr. moist/pink Lungs: Normal air movement, Other (SCE< crackles bases, no wheezing) Heart: S1S2, RRR, no thrills, no rubs, no gallops, no murmurs Cardiovascular: S1, S2 Abdomen: Normal bowel sounds, Soft, No tenderness, No hepatosplenomegaly, No masses Male Genitals Exam: normal genitalia, normal prostate PELVIC: Nml ext genitalia Extremities: No clubbing, No cyanosis, Normal pulses, Other (plus 2 pittinge madelyn rigoberto on ankles, socks make a viviane) Skin: No rashes, No breakdown, No significant lesion Neuro: Normal gait, Normal speech, Strength at 5/5 X4 ext, Normal tone, Sensation intact, Cranial nerves 3-12 NL, Reflexes 2+ Psych/Mental Status: Mental status NL, Mood NL Vitals Vitals Vital Signs Date Time Temp Pulse Resp B/P (MAP) Pulse Ox O2 Delivery O2 Flow Rate FiO2 04/13/19 15:48 97.6 73 18 137/64 (88) 96 Room Air 97.6 Labs Labs Laboratory Tests Test 04/13/19 15:15 04/13/19 16:07 Urine Collection Type Unknown Urine Color Yellow Urine Clarity Clear Urine pH 6.0 Urine Specific [place] 1.010 Urine Protein Negative mg/dL (NEG-TRACE) Urine Glucose (UA) Negative mg/dL (NEG) Urine Ketones (Stick) Negative mg/dL (NEG) Urine Blood Negative (NEG) Urine Nitrite Negative (NEG) Urine Bilirubin Negative (NEG) Urine Urobilinogen Dipstick 0.2 mg/dL (0.2 mg/dL) Urine Leukocyte Esterase Negative (NEG) Urine RBC 0 /HPF (0-2) Urine WBC 0 /HPF (0-4) Urine Bacteria 0 /HPF (0-FEW) Urine Opiates Screen Pos (NEG) Urine Methadone Screen Neg (NEG) Urine Barbiturates Neg (NEG) Urine Phencyclidine Screen Neg (NEG) Urine Amphetamine/Methamphetamine Neg (NEG) Urine Benzodiazepines Screen Neg (NEG) Urine Cocaine Screen Neg (NEG) Urine Cannabinoids Screen Neg (NEG) Urine Ethyl Alcohol Neg (NEG) White Blood Count 7.9 x10^3/uL (4.0-11.0) Red Blood Count 3.28 x10^6/uL (4.30-5.70) Hemoglobin 10.2 g/dL (13.0-17.5) Hematocrit 31.4 % (39.0-53.0) Mean Corpuscular Volume 96 fL (79-100) Mean Corpuscular Hemoglobin 31 pg (25-35) Mean Corpuscular Hemoglobin Concent 32 g/dL (31-37) Red Cell Distribution Width 16.6 % (11.5-14.5) Platelet Count 307 x10^3/uL (140-400) Neutrophils (%) (Auto) 70 % (31-73) Lymphocytes (%) (Auto) 15 % (24-48) Monocytes (%) (Auto) 9 % (0-9) Eosinophils (%) (Auto) 6 % (0-3) Basophils (%) (Auto) 1 % (0-3) Neutrophils # (Auto) 5.5 x10^3/uL (1.8-7.7) Lymphocytes # (Auto) 1.2 x10^3/uL (1.0-4.8) Monocytes # (Auto) 0.7 x10^3/uL (0.0-1.1) Eosinophils # (Auto) 0.5 x10^3/uL (0.0-0.7) Basophils # (Auto) 0.0 x10^3/uL (0.0-0.2) Sodium Level 136 mmol/L (136-145) Potassium Level 4.8 mmol/L (3.5-5.1) Chloride Level 98 mmol/L (98-107) Carbon Dioxide Level 26 mmol/L (21-32) Anion Gap 12 (6-14) Blood Urea Nitrogen 74 mg/dL (8-26) Creatinine 4.3 mg/dL (0.7-1.3) Estimated GFR (Cockcroft-Gault) 13.4 BUN/Creatinine Ratio 17 (6-20) Glucose Level 142 mg/dL (70-99) Calcium Level 9.5 mg/dL (8.5-10.1) Magnesium Level 2.8 mg/dL (1.8-2.4) Total Bilirubin 0.5 mg/dL (0.2-1.0) Aspartate Amino Transf (AST/SGOT) 13 U/L (15-37) Alanine Aminotransferase (ALT/SGPT) 12 U/L (16-63) Alkaline Phosphatase 89 U/L (46-116) Troponin I Quantitative < 0.017 ng/mL (0.000-0.055) Total Protein 7.7 g/dL (6.4-8.2) Albumin 3.6 g/dL (3.4-5.0) Albumin/Globulin Ratio 0.9 (1.0-1.7) Laboratory Tests Test 04/13/19 15:15 04/13/19 16:07 Urine Collection Type Unknown Urine Color Yellow Urine Clarity Clear Urine pH 6.0 Urine Specific [place] 1.010 Urine Protein Negative mg/dL (NEG-TRACE) Urine Glucose (UA) Negative mg/dL (NEG) Urine Ketones (Stick) Negative mg/dL (NEG) Urine Blood Negative (NEG) Urine Nitrite Negative (NEG) Urine Bilirubin Negative (NEG) Urine Urobilinogen Dipstick 0.2 mg/dL (0.2 mg/dL) Urine Leukocyte Esterase Negative (NEG) Urine RBC 0 /HPF (0-2) Urine WBC 0 /HPF (0-4) Urine Bacteria 0 /HPF (0-FEW) Urine Opiates Screen Pos (NEG) Urine Methadone Screen Neg (NEG) Urine Barbiturates Neg (NEG) Urine Phencyclidine Screen Neg (NEG) Urine Amphetamine/Methamphetamine Neg (NEG) Urine Benzodiazepines Screen Neg (NEG) Urine Cocaine Screen Neg (NEG) Urine Cannabinoids Screen Neg (NEG) Urine Ethyl Alcohol Neg (NEG) White Blood Count 7.9 x10^3/uL (4.0-11.0) Red Blood Count 3.28 x10^6/uL (4.30-5.70) Hemoglobin 10.2 g/dL (13.0-17.5) Hematocrit 31.4 % (39.0-53.0) Mean Corpuscular Volume 96 fL (79-100) Mean Corpuscular Hemoglobin 31 pg (25-35) Mean Corpuscular Hemoglobin Concent 32 g/dL (31-37) Red Cell Distribution Width 16.6 % (11.5-14.5) Platelet Count 307 x10^3/uL (140-400) Neutrophils (%) (Auto) 70 % (31-73) Lymphocytes (%) (Auto) 15 % (24-48) Monocytes (%) (Auto) 9 % (0-9) Eosinophils (%) (Auto) 6 % (0-3) Basophils (%) (Auto) 1 % (0-3) Neutrophils # (Auto) 5.5 x10^3/uL (1.8-7.7) Lymphocytes # (Auto) 1.2 x10^3/uL (1.0-4.8) Monocytes # (Auto) 0.7 x10^3/uL (0.0-1.1) Eosinophils # (Auto) 0.5 x10^3/uL (0.0-0.7) Basophils # (Auto) 0.0 x10^3/uL (0.0-0.2) Sodium Level 136 mmol/L (136-145) Potassium Level 4.8 mmol/L (3.5-5.1) Chloride Level 98 mmol/L (98-107) Carbon Dioxide Level 26 mmol/L (21-32) Anion Gap 12 (6-14) Blood Urea Nitrogen 74 mg/dL (8-26) Creatinine 4.3 mg/dL (0.7-1.3) Estimated GFR (Cockcroft-Gault) 13.4 BUN/Creatinine Ratio 17 (6-20) Glucose Level 142 mg/dL (70-99) Calcium Level 9.5 mg/dL (8.5-10.1) Magnesium Level 2.8 mg/dL (1.8-2.4) Total Bilirubin 0.5 mg/dL (0.2-1.0) Aspartate Amino Transf (AST/SGOT) 13 U/L (15-37) Alanine Aminotransferase (ALT/SGPT) 12 U/L (16-63) Alkaline Phosphatase 89 U/L (46-116) Troponin I Quantitative < 0.017 ng/mL (0.000-0.055) Total Protein 7.7 g/dL (6.4-8.2) Albumin 3.6 g/dL (3.4-5.0) Albumin/Globulin Ratio 0.9 (1.0-1.7) VTE Prophylaxis Ordered VTE Prophylaxis Devices: Yes VTE Pharmacological Prophylaxi: Yes Assessment/Plan Assessment/Plan Acute on chronic leg edema CHF exacerbation with elevated BNP and interstitial edema on CXR NO JVD REcent CEA left done by DR Gonzalez 04/02- ff up vacs sx NOv 4 (already set up- healing very well per acct) Obesity BMI 32 DANNA on CKD - CREAT JUMPED TO 4, (LASIX TRIPLED DOSE RECENTLY up to 140 mg qday x 2 days bec of the cardiac needs) FULL CODE PLAN: CVC bed, 2 mN I and O I CONTINUED LASIX 40 qD - RENAL AND CARD CONSULTS PT.OT CARdiac diet COnt plavix eliquis etc BUT I HELD LOSARTAN BEC OF CREAT FULL CODE Dw seen at ER No ABx needed SALTY GARVIN MD Apr 13, 2019 16:42
[2019-04-13] MEDS ORDERED: guaiFENesin DM 200MG/20MG 10 ML SYRUP PO PRN (16:45)
[2019-04-13] MEDS ORDERED: ACETAMINOPHEN 500 MG TABLET PO PRN (16:45)
[2019-04-13] MEDS ORDERED: ONDANSETRON PF 4 MG/2 ML VIAL. IVP PRN (16:45)
[2019-04-13] MEDS ORDERED: TEMAZEPAM 7.5 MG CAPSULE PO PRN (16:45)
[2019-04-13] MEDS ORDERED: ANTI-COAG MONITOR BY PHARMACY. MC PRN (17:00)
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
[2019-04-13 17:33] VITALS: BP 162/70
--- NOTE | 2019-04-13 18:29 | PDOC2 ---
CARDIOLOGY CONSULT NOTE [place] COMPLAINT: Swelling in the legs HPI: Dru is a pleasant 79-year-old man coming into the hospital in the setting of worsening renal failure. He was seen in the office 2 days prior with lower extremity edema and advised increase his diuretics after consultation with coo. Ultimately, he did have improvement in lower extremity edema but had worsening renal failure with a creatinine of 4.3 from baseline of 2.1. Due to this he was admitted directly to the hospital for further evaluation and treatment. Patient denies any dyspnea or chest pain but he does have fatigue and significant lower extremity edema. He recently has undergone a left carotid endarterectomy. PMHX: As noted below. SOCHX: No alcohol, tobacco or illicit drug use. He is . FAMHX: Noncontributory CURRENT MEDS: See medication administration record ALLERGIES: Allergies Coded Allergies Type Severity Reaction Last Updated Verified Penicillins Allergy Intermediate rash 03/28/19 Yes amiodarone Allergy Intermediate Unknown 03/28/19 Yes tramadol Adverse Reaction Intermediate "depressed" 03/28/19 Yes ROS: Negative unless otherwise noted above in history of present illness PHYSICAL EXAM: Vital Signs/I&O: Vital Signs Date Time Temp Pulse Resp B/P (MAP) Pulse Ox O2 Delivery O2 Flow Rate FiO2 04/13/19 17:33 97.5 67 18 162/70 (100) 96 Room Air 97.5 Physical Exam: On presentation he is comfortable and resting in the bed Neck exam reveals a recent left carotid endarterectomy with moderate edema and no evidence of infection Cardiac exam reveals a normal rhythm without any obvious murmurs Lungs are notable for decreased breath sounds at the bases Soft abdomen 1+ pitting edema up to the knee Neurologically no focal deficits are noted. DIAGNOSTIC TESTING: Creatinine 4.3. Further testing pending. Lab Laboratory Tests Test 04/13/19 15:15 04/13/19 16:07 Urine Collection Type Unknown Urine Color Yellow Urine Clarity Clear Urine pH 6.0 Urine Specific [place] 1.010 Urine Protein Negative mg/dL (NEG-TRACE) Urine Glucose (UA) Negative mg/dL (NEG) Urine Ketones (Stick) Negative mg/dL (NEG) Urine Blood Negative (NEG) Urine Nitrite Negative (NEG) Urine Bilirubin Negative (NEG) Urine Urobilinogen Dipstick 0.2 mg/dL (0.2 mg/dL) Urine Leukocyte Esterase Negative (NEG) Urine RBC 0 /HPF (0-2) Urine WBC 0 /HPF (0-4) Urine Bacteria 0 /HPF (0-FEW) Urine Opiates Screen Pos (NEG) Urine Methadone Screen Neg (NEG) Urine Barbiturates Neg (NEG) Urine Phencyclidine Screen Neg (NEG) Urine Amphetamine/Methamphetamine Neg (NEG) Urine Benzodiazepines Screen Neg (NEG) Urine Cocaine Screen Neg (NEG) Urine Cannabinoids Screen Neg (NEG) Urine Ethyl Alcohol Neg (NEG) White Blood Count 7.9 x10^3/uL (4.0-11.0) Red Blood Count 3.28 x10^6/uL (4.30-5.70) L Hemoglobin 10.2 g/dL (13.0-17.5) L Hematocrit 31.4 % (39.0-53.0) L Mean Corpuscular Volume 96 fL (79-100) Mean Corpuscular Hemoglobin 31 pg (25-35) Mean Corpuscular Hemoglobin Concent 32 g/dL (31-37) Red Cell Distribution Width 16.6 % (11.5-14.5) H Platelet Count 307 x10^3/uL (140-400) Neutrophils (%) (Auto) 70 % (31-73) Lymphocytes (%) (Auto) 15 % (24-48) L Monocytes (%) (Auto) 9 % (0-9) Eosinophils (%) (Auto) 6 % (0-3) H Basophils (%) (Auto) 1 % (0-3) Neutrophils # (Auto) 5.5 x10^3/uL (1.8-7.7) Lymphocytes # (Auto) 1.2 x10^3/uL (1.0-4.8) Monocytes # (Auto) 0.7 x10^3/uL (0.0-1.1) Eosinophils # (Auto) 0.5 x10^3/uL (0.0-0.7) Basophils # (Auto) 0.0 x10^3/uL (0.0-0.2) Sodium Level 136 mmol/L (136-145) Potassium Level 4.8 mmol/L (3.5-5.1) Chloride Level 98 mmol/L (98-107) Carbon Dioxide Level 26 mmol/L (21-32) Anion Gap 12 (6-14) Blood Urea Nitrogen 74 mg/dL (8-26) H Creatinine 4.3 mg/dL (0.7-1.3) H Estimated GFR (Cockcroft-Gault) 13.4 BUN/Creatinine Ratio 17 (6-20) Glucose Level 142 mg/dL (70-99) H Calcium Level 9.5 mg/dL (8.5-10.1) Total Bilirubin 0.5 mg/dL (0.2-1.0) Aspartate Amino Transf (AST/SGOT) 13 U/L (15-37) L Alkaline Phosphatase 89 U/L (46-116) Creatine Kinase 65 U/L (39-308) Creatine Kinase MB (Mass) 1.4 ng/mL (0.0-3.6) Creatine Kinase MB Relative Index % (0-4) Total Protein 7.7 g/dL (6.4-8.2) Albumin 3.6 g/dL (3.4-5.0) Albumin/Globulin Ratio 0.9 (1.0-1.7) L Laboratory Tests 04/13/19 16:07 ASSESSMENT: 1. 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 Acute on chronic renal failure 3. HTN 4. CAD 5. PVD PLAN: 1. I spoke with Dr. Garcia. Despite aggressive diuresis on an outpt basis he has had worsening renal failure. He likely needs aggressive inpatient diuresis with lasix gtt but the patient is hesitant about possibility of HD. He does not want HD at this time. Therefore, will fluid challenge with NS overnight and reassess tomorrow and defer to Dr. Garcia about initiation of HD. If there is clinical equipoise, then can perform RHC on tuesday. Thanks. Discussed with family and patient and bedside. Late entry for 04/13/2019 RONALDO DANIEL MD Apr 13, 2019 18:29
[2019-04-13] MEDS ORDERED: IV NORMAL SALINE 1000ML BAG 1,000 ML IV ONE (18:30)
[2019-04-13 19:30] VITALS: BP 179/78
[2019-04-13] MEDS: APIXABAN 5 MG TABLET. PO SCH (19:58)
[2019-04-13] MEDS: TAMSULOSIN 0.4 MG CAP.ER.24H. PO SCH (19:58)
[2019-04-13] MEDS ORDERED: IPRATRPIUM/ALBUTEROL 0.5/2.5MG 3 ML NEBU. NEB SCH (20:00)
[2019-04-13 23:00] VITALS: BP 180/78
[2019-04-14 03:15] VITALS: BP 164/75
[2019-04-14] MEDS: HYDROcodone/APAP 10/325 1 TAB TABLET PO PRN ×3 (03:37→18:36)
[2019-04-14 05:51] LABS: CREATININE 3.9 mg/dL (0.7-1.3); POTASSIUM 4.6 mmol/L (3.5-5.1)
[2019-04-14 07:00] VITALS: BP 153/70
[2019-04-14] MEDS: CLOPIDOGREL BISULFATE 75 MG TABLET PO SCH (08:45)
[2019-04-14] MEDS: ALLOPURINOL 100 MG TABLET. PO SCH (08:45)
[2019-04-14] MEDS: POLYETHYLENE GLYCOL 3350 17 GM PACKET. PO SCH (08:45)
[2019-04-14] MEDS: PANTOPRAZOLE 40 MG TABLET.DR. PO SCH (08:45)
[2019-04-14] MEDS: GEMFIBROZIL 600 MG TABLET. PO SCH (08:45)
[2019-04-14] MEDS: MULTIVITAMIN with MINERAL TABLET. PO SCH (08:45)
[2019-04-14] MEDS: MULTIVITAMIN I-VITE TABLET. PO SCH (08:46)
[2019-04-14] MEDS: ASCORBIC ACID 500 MG TABLET PO SCH (08:46)
[2019-04-14] MEDS: APIXABAN 5 MG TABLET. PO SCH ×2 (08:46→20:53)
[2019-04-14] MEDS: EZETIMIBE 10 MG TABLET. PO SCH (08:46)
[2019-04-14] MEDS: amLODIPine BESYLATE 10 MG TABLET PO SCH (08:46)
[2019-04-14] MEDS: METOPROLOL SUCC 24HR ER 100 MG TAB.ER.24H. PO SCH (08:47)
[2019-04-14] MEDS ORDERED: FUROSEMIDE 40 MG TABLET. PO SCH (09:00)
[2019-04-14] MEDS ORDERED: NON FORMULARY ITEM (Ubidecarenone (Co Q-10) 200 MG) PO SCH (09:00)
--- NOTE | 2019-04-14 09:06 | PDOC ---
PROGRESS NOTES History of Present Illness History of Present Illness VTE Prophylaxis Ordered VTE Prophylaxis Devices: Yes VTE Pharmacological Prophylaxi: Yes Assessment/Plan Acute on chronic leg edema CHF exacerbation with elevated BNP and interstitial edema on CXR REcent CEA left done by DR Gonzalez 04/02- ff up vacs sx NOv 4 (already set up- healing very well per acct) Obesity BMI 32 DANNA on CKD - CREAT JUMPED TO 4, resent sono , Right kidney measures 12 cm x 5.15 cm x 5 cm. Left kidney measures 12.76 cm x 5.864 cm x 4.91 cm. No hydronephrosis. Right renal simple cyst at the interpolar region laterally is present measuring 2.6 cm x 2.7 cm x 2.6 cm. Renal cortical echotexture is unremarkable. No definitenephrolithiasis. Urinary bladder is mostly decompressed with a volume of 186 cc. urinary bladder postvoid residual of 36.8 cc is noted. FULL CODE hypertension normocytic anemia Generalized weakness Paroxysmal A. 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 cr= 1.5 10/01 History N STEMI Diabetes type 2 dysphagia pulmonary hypertension, mod-severe PLAN: CVC bed, 2 mN I and O I CONTINUED LASIX 40 qD - RENAL AND CARD CONSULTS PT.OT CARdiac diet COnt plavix eliquis etc BUT I HELD LOSARTAN BEC OF CREAT FULL CODE fe panel accuchecks d/w in room 39 min pt exam, chart review, > 50% of time spent with exam, chart review, pt care coordination Vitals Vitals Vital Signs Date Time Temp Pulse Resp B/P (MAP) Pulse Ox O2 Delivery O2 Flow Rate FiO2 04/14/19 08:47 77 153/70 04/14/19 04:37 18 93 Room Air 04/14/19 03:15 98.3 98.3 Physical Exam General: Alert, Oriented X3, Cooperative, No acute distress, Other (left carotid incision, clean, dry intact) Heart: Regular rate Lungs: Clear Abdomen: Normal bowel sounds, Soft, No tenderness, No hepatosplenomegaly, No masses Extremities: No clubbing, No cyanosis, Normal pulses, Other (plus 2 pittinge madelyn rigoberto on ankles, socks make a viviane) Skin: No rashes, No breakdown, No significant lesion Labs LABS Examination: RENAL COMPLETE BILATERAL History: Acute renal insufficiency on chronic kidney disease Comparison/Correlation: None Findings: Right kidney measures 12 cm x 5.15 cm x 5 cm. Left kidney measures 12.76 cm x 5.864 cm x 4.91 cm. No hydronephrosis. Right renal simple cyst at the interpolar region laterally is present measuring 2.6 cm x 2.7 cm x 2.6 cm. Renal cortical echotexture is unremarkable. No definite nephrolithiasis. Urinary bladder is mostly decompressed with a volume of 186 cc. Small urinary bladder postvoid residual of 36.8 cc is noted. Impression: No hydronephrosis. Electronically signed by: Kevan Rivera MD (04/03/2019 4:53 PM) [facility] DICTATED and SIGNED BY: KEVAN RIVERA MD EXAM: Chest, single view. HISTORY: Swelling. COMPARISON: 09/26/2018 FINDINGS: A frontal view of the chest is obtained. There is stable bilateral midthoracic opacity likely due to pleural parenchymal scarring or pleural plaque. There is no infiltrate, pleural effusion or pneumothorax. There is a stable prominent cardiac silhouette and evidence of prior mediastinal surgery. IMPRESSION: Stable opacity overlying the bilateral mid thorax due to suspected pleural parenchymal scarring or calcified pleural plaque. Electronically signed by: Adeline Lanier MD (04/13/2019 4:13 PM) [place] [id number] DICTATED and SIGNED BY: ADELINE LANIER MD Laboratory Tests Test 04/13/19 15:15 04/13/19 16:07 04/13/19 20:46 04/14/19 04:35 Urine Collection Type Unknown Urine Color Yellow Urine Clarity Clear Urine pH 6.0 Urine Specific [place] 1.010 Urine Protein Negative mg/dL (NEG-TRACE) Urine Glucose (UA) Negative mg/dL (NEG) Urine Ketones (Stick) Negative mg/dL (NEG) Urine Blood Negative (NEG) Urine Nitrite Negative (NEG) Urine Bilirubin Negative (NEG) Urine Urobilinogen Dipstick 0.2 mg/dL (0.2 mg/dL) Urine Leukocyte Esterase Negative (NEG) Urine RBC 0 /HPF (0-2) Urine WBC 0 /HPF (0-4) Urine Bacteria 0 /HPF (0-FEW) Urine Opiates Screen Pos (NEG) Urine Methadone Screen Neg (NEG) Urine Barbiturates Neg (NEG) Urine Phencyclidine Screen Neg (NEG) Urine Amphetamine/Methamphetamine Neg (NEG) Urine Benzodiazepines Screen Neg (NEG) Urine Cocaine Screen Neg (NEG) Urine Cannabinoids Screen Neg (NEG) Urine Ethyl Alcohol Neg (NEG) White Blood Count 7.9 x10^3/uL (4.0-11.0) Red Blood Count 3.28 x10^6/uL (4.30-5.70) Hemoglobin 10.2 g/dL (13.0-17.5) Hematocrit 31.4 % (39.0-53.0) Mean Corpuscular Volume 96 fL (79-100) Mean Corpuscular Hemoglobin 31 pg (25-35) Mean Corpuscular Hemoglobin Concent 32 g/dL (31-37) Red Cell Distribution Width 16.6 % (11.5-14.5) Platelet Count 307 x10^3/uL (140-400) Neutrophils (%) (Auto) 70 % (31-73) Lymphocytes (%) (Auto) 15 % (24-48) Monocytes (%) (Auto) 9 % (0-9) Eosinophils (%) (Auto) 6 % (0-3) Basophils (%) (Auto) 1 % (0-3) Neutrophils # (Auto) 5.5 x10^3/uL (1.8-7.7) Lymphocytes # (Auto) 1.2 x10^3/uL (1.0-4.8) Monocytes # (Auto) 0.7 x10^3/uL (0.0-1.1) Eosinophils # (Auto) 0.5 x10^3/uL (0.0-0.7) Basophils # (Auto) 0.0 x10^3/uL (0.0-0.2) Sodium Level 136 mmol/L (136-145) 137 mmol/L (136-145) Potassium Level 4.8 mmol/L (3.5-5.1) 4.6 mmol/L (3.5-5.1) Chloride Level 98 mmol/L (98-107) 101 mmol/L (98-107) Carbon Dioxide Level 26 mmol/L (21-32) 25 mmol/L (21-32) Anion Gap 12 (6-14) 11 (6-14) Blood Urea Nitrogen 74 mg/dL (8-26) 69 mg/dL (8-26) Creatinine 4.3 mg/dL (0.7-1.3) 3.9 mg/dL (0.7-1.3) Estimated GFR (Cockcroft-Gault) 13.4 15.0 BUN/Creatinine Ratio 17 (6-20) Glucose Level 142 mg/dL (70-99) 111 mg/dL (70-99) Calcium Level 9.5 mg/dL (8.5-10.1) 9.0 mg/dL (8.5-10.1) Magnesium Level 2.8 mg/dL (1.8-2.4) Total Bilirubin 0.5 mg/dL (0.2-1.0) Aspartate Amino Transf (AST/SGOT) 13 U/L (15-37) Alanine Aminotransferase (ALT/SGPT) 12 U/L (16-63) Alkaline Phosphatase 89 U/L (46-116) Creatine Kinase 65 U/L (39-308) Creatine Kinase MB (Mass) 1.4 ng/mL (0.0-3.6) Creatine Kinase MB Relative Index % (0-4) Troponin I Quantitative < 0.017 ng/mL (0.000-0.055) [id number]-Type Natriuretic Peptide 22208 pg/mL (0-449) Total Protein 7.7 g/dL (6.4-8.2) Albumin 3.6 g/dL (3.4-5.0) Albumin/Globulin Ratio 0.9 (1.0-1.7) Glucose (Fingerstick) 166 mg/dL (70-99) Assessment and Plan Assessmemt and Plan Problems Medical Problems: (1) Acute on chronic renal failure Status: Acute (2) CHF exacerbation Status: Acute Comment Review of Relevant I have reviewed the following items viviane (where applicable) has been applied. Labs Laboratory Tests Test 04/13/19 15:15 04/13/19 16:07 04/13/19 20:46 04/14/19 04:35 Urine Collection Type Unknown Urine Color Yellow Urine Clarity Clear Urine pH 6.0 Urine Specific [place] 1.010 Urine Protein Negative mg/dL (NEG-TRACE) Urine Glucose (UA) Negative mg/dL (NEG) Urine Ketones (Stick) Negative mg/dL (NEG) Urine Blood Negative (NEG) Urine Nitrite Negative (NEG) Urine Bilirubin Negative (NEG) Urine Urobilinogen Dipstick 0.2 mg/dL (0.2 mg/dL) Urine Leukocyte Esterase Negative (NEG) Urine RBC 0 /HPF (0-2) Urine WBC 0 /HPF (0-4) Urine Bacteria 0 /HPF (0-FEW) Urine Opiates Screen Pos (NEG) Urine Methadone Screen Neg (NEG) Urine Barbiturates Neg (NEG) Urine Phencyclidine Screen Neg (NEG) Urine Amphetamine/Methamphetamine Neg (NEG) Urine Benzodiazepines Screen Neg (NEG) Urine Cocaine Screen Neg (NEG) Urine Cannabinoids Screen Neg (NEG) Urine Ethyl Alcohol Neg (NEG) White Blood Count 7.9 x10^3/uL (4.0-11.0) Red Blood Count 3.28 x10^6/uL (4.30-5.70) Hemoglobin 10.2 g/dL (13.0-17.5) Hematocrit 31.4 % (39.0-53.0) Mean Corpuscular Volume 96 fL (79-100) Mean Corpuscular Hemoglobin 31 pg (25-35) Mean Corpuscular Hemoglobin Concent 32 g/dL (31-37) Red Cell Distribution Width 16.6 % (11.5-14.5) Platelet Count 307 x10^3/uL (140-400) Neutrophils (%) (Auto) 70 % (31-73) Lymphocytes (%) (Auto) 15 % (24-48) Monocytes (%) (Auto) 9 % (0-9) Eosinophils (%) (Auto) 6 % (0-3) Basophils (%) (Auto) 1 % (0-3) Neutrophils # (Auto) 5.5 x10^3/uL (1.8-7.7) Lymphocytes # (Auto) 1.2 x10^3/uL (1.0-4.8) Monocytes # (Auto) 0.7 x10^3/uL (0.0-1.1) Eosinophils # (Auto) 0.5 x10^3/uL (0.0-0.7) Basophils # (Auto) 0.0 x10^3/uL (0.0-0.2) Sodium Level 136 mmol/L (136-145) 137 mmol/L (136-145) Potassium Level 4.8 mmol/L (3.5-5.1) 4.6 mmol/L (3.5-5.1) Chloride Level 98 mmol/L (98-107) 101 mmol/L (98-107) Carbon Dioxide Level 26 mmol/L (21-32) 25 mmol/L (21-32) Anion Gap 12 (6-14) 11 (6-14) Blood Urea Nitrogen 74 mg/dL (8-26) 69 mg/dL (8-26) Creatinine 4.3 mg/dL (0.7-1.3) 3.9 mg/dL (0.7-1.3) Estimated GFR (Cockcroft-Gault) 13.4 15.0 BUN/Creatinine Ratio 17 (6-20) Glucose Level 142 mg/dL (70-99) 111 mg/dL (70-99) Calcium Level 9.5 mg/dL (8.5-10.1) 9.0 mg/dL (8.5-10.1) Magnesium Level 2.8 mg/dL (1.8-2.4) Total Bilirubin 0.5 mg/dL (0.2-1.0) Aspartate Amino Transf (AST/SGOT) 13 U/L (15-37) Alanine Aminotransferase (ALT/SGPT) 12 U/L (16-63) Alkaline Phosphatase 89 U/L (46-116) Creatine Kinase 65 U/L (39-308) Creatine Kinase MB (Mass) 1.4 ng/mL (0.0-3.6) Creatine Kinase MB Relative Index % (0-4) Troponin I Quantitative < 0.017 ng/mL (0.000-0.055) RI-[id number]-T-Type Natriuretic Peptide 89878 pg/mL (0-449) Total Protein 7.7 g/dL (6.4-8.2) Albumin 3.6 g/dL (3.4-5.0) Albumin/Globulin Ratio 0.9 (1.0-1.7) Glucose (Fingerstick) 166 mg/dL (70-99) Laboratory Tests Test 04/13/19 15:15 04/13/19 16:07 04/13/19 20:46 04/14/19 04:35 Urine Collection Type Unknown Urine Color Yellow Urine Clarity Clear Urine pH 6.0 Urine Specific [place] 1.010 Urine Protein Negative mg/dL (NEG-TRACE) Urine Glucose (UA) Negative mg/dL (NEG) Urine Ketones (Stick) Negative mg/dL (NEG) Urine Blood Negative (NEG) Urine Nitrite Negative (NEG) Urine Bilirubin Negative (NEG) Urine Urobilinogen Dipstick 0.2 mg/dL (0.2 mg/dL) Urine Leukocyte Esterase Negative (NEG) Urine RBC 0 /HPF (0-2) Urine WBC 0 /HPF (0-4) Urine Bacteria 0 /HPF (0-FEW) Urine Opiates Screen Pos (NEG) Urine Methadone Screen Neg (NEG) Urine Barbiturates Neg (NEG) Urine Phencyclidine Screen Neg (NEG) Urine Amphetamine/Methamphetamine Neg (NEG) Urine Benzodiazepines Screen Neg (NEG) Urine Cocaine Screen Neg (NEG) Urine Cannabinoids Screen Neg (NEG) Urine Ethyl Alcohol Neg (NEG) White Blood Count 7.9 x10^3/uL (4.0-11.0) Red Blood Count 3.28 x10^6/uL (4.30-5.70) Hemoglobin 10.2 g/dL (13.0-17.5) Hematocrit 31.4 % (39.0-53.0) Mean Corpuscular Volume 96 fL (79-100) Mean Corpuscular Hemoglobin 31 pg (25-35) Mean Corpuscular Hemoglobin Concent 32 g/dL (31-37) Red Cell Distribution Width 16.6 % (11.5-14.5) Platelet Count 307 x10^3/uL (140-400) Neutrophils (%) (Auto) 70 % (31-73) Lymphocytes (%) (Auto) 15 % (24-48) Monocytes (%) (Auto) 9 % (0-9) Eosinophils (%) (Auto) 6 % (0-3) Basophils (%) (Auto) 1 % (0-3) Neutrophils # (Auto) 5.5 x10^3/uL (1.8-7.7) Lymphocytes # (Auto) 1.2 x10^3/uL (1.0-4.8) Monocytes # (Auto) 0.7 x10^3/uL (0.0-1.1) Eosinophils # (Auto) 0.5 x10^3/uL (0.0-0.7) Basophils # (Auto) 0.0 x10^3/uL (0.0-0.2) Sodium Level 136 mmol/L (136-145) 137 mmol/L (136-145) Potassium Level 4.8 mmol/L (3.5-5.1) 4.6 mmol/L (3.5-5.1) Chloride Level 98 mmol/L (98-107) 101 mmol/L (98-107) Carbon Dioxide Level 26 mmol/L (21-32) 25 mmol/L (21-32) Anion Gap 12 (6-14) 11 (6-14) Blood Urea Nitrogen 74 mg/dL (8-26) 69 mg/dL (8-26) Creatinine 4.3 mg/dL (0.7-1.3) 3.9 mg/dL (0.7-1.3) Estimated GFR (Cockcroft-Gault) 13.4 15.0 BUN/Creatinine Ratio 17 (6-20) Glucose Level 142 mg/dL (70-99) 111 mg/dL (70-99) Calcium Level 9.5 mg/dL (8.5-10.1) 9.0 mg/dL (8.5-10.1) Magnesium Level 2.8 mg/dL (1.8-2.4) Total Bilirubin 0.5 mg/dL (0.2-1.0) Aspartate Amino Transf (AST/SGOT) 13 U/L (15-37) Alanine Aminotransferase (ALT/SGPT) 12 U/L (16-63) Alkaline Phosphatase 89 U/L (46-116) Creatine Kinase 65 U/L (39-308) Creatine Kinase MB (Mass) 1.4 ng/mL (0.0-3.6) Creatine Kinase MB Relative Index % (0-4) Troponin I Quantitative < 0.017 ng/mL (0.000-0.055) AU-[id number]-B-Type Natriuretic Peptide 12676 pg/mL (0-449) Total Protein 7.7 g/dL (6.4-8.2) Albumin 3.6 g/dL (3.4-5.0) Albumin/Globulin Ratio 0.9 (1.0-1.7) Glucose (Fingerstick) 166 mg/dL (70-99) Medications Current Medications Ondansetron HCl (Zofran) 4 mg PRN Q8HRS PRN IV NAUSEA/VOMITING; Start 04/13/19 at 16:30; Stop 04/14/19 at 16:29 Fentanyl Citrate (Fentanyl 2ml Vial) 50 mcg PRN Q1HR PRN IV PAIN; Start 04/13/19 at 16:30; Stop 04/14/19 at 16:29 Acetaminophen (Tylenol) 650 mg PRN Q4HRS PRN PO FEVER; Start 04/13/19 at 16:30; Stop 04/14/19 at 16:29 Nitroglycerin (Nitrostat) 0.4 mg PRN Q5MIN PRN SL CHEST PAIN; Start 04/13/19 at 16:30; Stop 04/14/19 at 16:29 Acetaminophen (Tylenol) 500 mg PRN Q6HRS PRN PO MILD PAIN / TEMP; Start 04/13/19 at 16:45 Allopurinol (Zyloprim) 200 mg DAILY PO Last administered on 04/14/19 08:45; Start 04/14/19 at 09:00 Amlodipine Besylate (Norvasc) 10 mg DAILY PO Last administered on 04/14/19 08:46; Start 04/14/19 at 09:00 Apixaban (Eliquis) 5 mg BID PO Last administered on 04/14/19 08:46; Start 04/13/19 at 21:00 Clopidogrel Bisulfate (Plavix) 75 mg DAILY PO Last administered on 04/14/19at 08:45; Start 04/14/19 at 09:00 EZETIMIBE (Zetia) 10 mg DAILY PO Last administered on 04/14/19at 08:46; Start 04/14/19 at 09:00 Furosemide (Lasix) 40 mg DAILY PO ; Start 04/14/19 at 09:00; Stop 04/13/19 at 18:31; Status DC Gemfibrozil (Lopid) 600 mg DAILY PO Last administered on 04/14/19 08:45; Start 04/14/19 at 09:00 Acetaminophen/ Hydrocodone Bitart (Lortab 10/325) 1 tab PRN Q6HRS PRN PO PAIN MOD TO SEV Last administered on 04/14/19at 03:37; Start 04/13/19 at 16:45 Metoprolol Succinate (Toprol Xl) 100 mg DAILY PO Last administered on 04/14/19 08:47; Start 04/14/19 at 09:00 Polyethylene Glycol (miraLAX PACKET) 17 gm DAILY PO Last administered on 04/14/19 08:45; Start 04/14/19 at 09:00 Tamsulosin HCl (Flomax) 0.4 mg HS PO Last administered on 04/13/19 19:58; Start 04/13/19 at 21:00 Ascorbic Acid (Vitamin C) 1,000 mg DAILY PO Last administered on 04/14/19 08:46; Start 04/14/19 at 09:00 Pantoprazole Sodium (Protonix) 40 mg DAILYAC PO Last administered on 04/14/19 08:45; Start 04/14/19 at 07:30 Multivitamins (Thera M Plus) 1 tab DAILY PO Last administered on 04/14/19 08:45; Start 04/14/19 at 09:00 Non-Formulary Medication (Ubidecarenone (Co Q-10)) 200 mg DAILY PO ; Start 04/14/19 at 09:00; Status UNV Multivitamins/ Minerals (I-Rehana) 1 tab DAILY PO Last administered on 04/14/19at 08:46; Start 04/14/19 at 09:00 Temazepam (Restoril) 7.5 mg PRN QHS PRN PO INSOMNIA; Start 04/13/19 at 16:45 Ondansetron HCl (Zofran) 4 mg PRN Q6HRS PRN IVP NAUSEA/VOMITING; Start 04/13/19 at 16:45 Albuterol/ Ipratropium (Duoneb) 3 ml RTQID NEB ; Start 04/13/19 at 20:00 Guaifenesin (Robitussin Dm) 10 ml PRN Q6HRS PRN PO COUGH; Start 04/13/19 at 16:45 Info (Anti-Coagulation Monitoring By Pharmacy) 1 each PRN DAILY PRN MC SEE COMMENTS; Start 04/13/19 at 17:00 Sodium Chloride 1,000 ml @ 100 mls/hr 1X ONCE IV Last administered on 04/13/19 19:58; Start 04/13/19 at 18:30; Stop 04/14/19 at 04:29; Status DC Active Scripts Active Acetaminophen 500 Mg Tablet 500 Mg PO PRN Q6HRS PRN 14 Days Eliquis (Apixaban) 5 Mg Tablet 5 Mg PO BID 30 Days Reported Miralax (Polyethylene Glycol 3350) 17 Gm Powd.pack 1 Pkt PO DAILY Hydrocodone-Apap 10-325 (Hydrocodone Bit/Acetaminophen) 1 Tab Tablet 1 Tab PO PRN Q6HRS PRN Preservision Areds Tablet (Vit A/Vit C/Vit E/Zinc/Copper) 1 Each Tablet 1 Each PO DAILY Allopurinol 300 Mg Tablet 300 Mg PO DAILY Furosemide 40 Mg Tablet 40 Mg PO DAILY Toprol Xl (Metoprolol Succinate) 50 Mg Tab.er.24h 100 Mg PO DAILY Flomax (Tamsulosin Hcl) 0.4 Mg Cap.er.24h 1 Cap PO HS Amlodipine Besylate 5 Mg Tablet 10 Mg PO DAILY Testosterone Cypionate 200 Mg/1 Ml Vial 1 Ml IM [id number] Clopidogrel (Clopidogrel Bisulfate) 75 Mg Tablet 1 Tab PO DAILY Vitamin C (Ascorbic Acid) 1,000 Mg Tablet 1,000 Mg PO DAILY Co Q-10 (Ubidecarenone) 200 Mg Capsule 200 Mg PO DAILY Krill Oil 500 Mg Capsule 500 Mg PO Multi-Vitamin Daily (Multivitamin) 1 Each Tablet 1 Each PO DAILY Gemfibrozil 600 Mg Tablet 1 Tab PO DAILY Zetia (Ezetimibe) 10 Mg Tablet 1 Tab PO DAILY Losartan Potassium 100 Mg Tablet 100 Mg PO DAILY Nexium Capsule (Esomeprazole Magnesium) 40 Mg Capsule.dr Basurto Cap PO DAILY Vitals/I & O Vital Sign - Last 24 Hours 04/13/19 04/13/19 04/13/19 04/13/19 15:48 16:30 17:33 19:30 Temp 97.6 97.5 97.6 97.6 97.5 97.6 Pulse 73 70 67 66 Resp 18 16 18 22 B/P (MAP) 137/64 (88) 129/61 (83) 162/70 (100) 179/78 (111) Pulse Ox 96 96 96 95 O2 Delivery Room Air Room Air Room Air Room Air 04/13/19 04/13/19 04/14/19 04/14/19 19:35 23:00 03:15 03:37 Temp 97.8 98.3 97.8 98.3 Pulse 75 71 Resp 20 20 20 B/P (MAP) 180/78 (112) 164/75 (104) Pulse Ox 93 93 O2 Delivery Room Air Room Air Room Air 04/14/19 04/14/19 04/14/19 04:37 08:46 08:47 Pulse 77 77 Resp 18 B/P (MAP) 153/70 153/70 Pulse Ox 93 O2 Delivery Room Air Intake and Output 04/13/19 04/13/19 04/14/19 15:00 23:00 07:00 Intake Total 1297 ml Output Total 1000 ml 1300 ml Balance -1000 ml -3 ml KAREN REYES MD Apr 14, 2019 09:06
[2019-04-14 11:00] VITALS: BP 156/72
--- NOTE | 2019-04-14 11:47 | PDOC ---
PROGRESS NOTES Subjective Subjective Feeling better after diuresis. Dyspnea and edema improved. Objective Objective Vital Signs Date Time Temp Pulse Resp B/P (MAP) Pulse Ox O2 Delivery O2 Flow Rate FiO2 04/14/19 10:49 94 Room Air 04/14/19 08:47 77 153/70 04/14/19 07:00 97.7 20 97.7 Intake and Output 04/14/19 07:00 Intake Total 1297 ml Output Total 2300 ml Balance -1003 ml Intake Oral 300 ml IV Total 997 ml Output Urine Total 2300 ml Physical Exam Abdomen: Normal bowel sounds, Soft, No tenderness, No masses Extremities: No clubbing, No cyanosis, Normal pulses, Other (plus 2 pittinge madelyn rigoberto on ankles, socks make a viviane) General: Alert, No acute distress HEENT: Atraumatic, PERRLA, EOMI Lungs: Normal air movement, Other (SCE< crackles bases, no wheezing) Neuro: Normal speech, Normal tone, Reflexes 2+ Psych/Mental Status: Mental status NL, Mood NL Skin: No rashes Assessment Assessment 1. 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 Continue current medical regimen. 2. Acute on chronic renal failure: Nephrology following 3. HTN: Controlled 4. CAD: Clinically stable and chest pain-free 5. PVD: Stable Plan Plan of Care Problems Medical Problems: (1) Acute on chronic renal failure Status: Acute (2) CHF exacerbation Status: Acute Comment Review of Relevant I have reviewed the following items viviane (where applicable) has been applied. Labs Laboratory Tests Test 04/13/19 15:15 04/13/19 16:07 04/13/19 20:46 04/14/19 04:35 Urine Collection Type Unknown Urine Color Yellow Urine Clarity Clear Urine pH 6.0 Urine Specific [place] 1.010 Urine Protein Negative mg/dL (NEG-TRACE) Urine Glucose (UA) Negative mg/dL (NEG) Urine Ketones (Stick) Negative mg/dL (NEG) Urine Blood Negative (NEG) Urine Nitrite Negative (NEG) Urine Bilirubin Negative (NEG) Urine Urobilinogen Dipstick 0.2 mg/dL (0.2 mg/dL) Urine Leukocyte Esterase Negative (NEG) Urine RBC 0 /HPF (0-2) Urine WBC 0 /HPF (0-4) Urine Bacteria 0 /HPF (0-FEW) Urine Opiates Screen Pos (NEG) Urine Methadone Screen Neg (NEG) Urine Barbiturates Neg (NEG) Urine Phencyclidine Screen Neg (NEG) Urine Amphetamine/Methamphetamine Neg (NEG) Urine Benzodiazepines Screen Neg (NEG) Urine Cocaine Screen Neg (NEG) Urine Cannabinoids Screen Neg (NEG) Urine Ethyl Alcohol Neg (NEG) White Blood Count 7.9 x10^3/uL (4.0-11.0) Red Blood Count 3.28 x10^6/uL (4.30-5.70) Hemoglobin 10.2 g/dL (13.0-17.5) Hematocrit 31.4 % (39.0-53.0) Mean Corpuscular Volume 96 fL (79-100) Mean Corpuscular Hemoglobin 31 pg (25-35) Mean Corpuscular Hemoglobin Concent 32 g/dL (31-37) Red Cell Distribution Width 16.6 % (11.5-14.5) Platelet Count 307 x10^3/uL (140-400) Neutrophils (%) (Auto) 70 % (31-73) Lymphocytes (%) (Auto) 15 % (24-48) Monocytes (%) (Auto) 9 % (0-9) Eosinophils (%) (Auto) 6 % (0-3) Basophils (%) (Auto) 1 % (0-3) Neutrophils # (Auto) 5.5 x10^3/uL (1.8-7.7) Lymphocytes # (Auto) 1.2 x10^3/uL (1.0-4.8) Monocytes # (Auto) 0.7 x10^3/uL (0.0-1.1) Eosinophils # (Auto) 0.5 x10^3/uL (0.0-0.7) Basophils # (Auto) 0.0 x10^3/uL (0.0-0.2) Sodium Level 136 mmol/L (136-145) 137 mmol/L (136-145) Potassium Level 4.8 mmol/L (3.5-5.1) 4.6 mmol/L (3.5-5.1) Chloride Level 98 mmol/L (98-107) 101 mmol/L (98-107) Carbon Dioxide Level 26 mmol/L (21-32) 25 mmol/L (21-32) Anion Gap 12 (6-14) 11 (6-14) Blood Urea Nitrogen 74 mg/dL (8-26) 69 mg/dL (8-26) Creatinine 4.3 mg/dL (0.7-1.3) 3.9 mg/dL (0.7-1.3) Estimated GFR (Cockcroft-Gault) 13.4 15.0 BUN/Creatinine Ratio 17 (6-20) Glucose Level 142 mg/dL (70-99) 111 mg/dL (70-99) Calcium Level 9.5 mg/dL (8.5-10.1) 9.0 mg/dL (8.5-10.1) Magnesium Level 2.8 mg/dL (1.8-2.4) Total Bilirubin 0.5 mg/dL (0.2-1.0) Aspartate Amino Transf (AST/SGOT) 13 U/L (15-37) Alanine Aminotransferase (ALT/SGPT) 12 U/L (16-63) Alkaline Phosphatase 89 U/L (46-116) Creatine Kinase 65 U/L (39-308) Creatine Kinase MB (Mass) 1.4 ng/mL (0.0-3.6) Creatine Kinase MB Relative Index % (0-4) Troponin I Quantitative < 0.017 ng/mL (0.000-0.055) RC-Lrm-O-Type Natriuretic Peptide 78684 pg/mL (0-449) Total Protein 7.7 g/dL (6.4-8.2) Albumin 3.6 g/dL (3.4-5.0) Albumin/Globulin Ratio 0.9 (1.0-1.7) Glucose (Fingerstick) 166 mg/dL (70-99) Medications Current Medications Acetaminophen (Tylenol) 500 mg PRN Q6HRS PRN PO MILD PAIN / TEMP; Start 04/13/19 at 16:45 Acetaminophen (Tylenol) 650 mg PRN Q4HRS PRN PO FEVER; Start 04/13/19 at 16:30; Stop 04/14/19 at 16:29 Acetaminophen/ Hydrocodone Bitart (Lortab 10) 1 tab PRN Q6HRS PRN PO PAIN MOD TO SEV Last administered on 04/14/19at 10:49; Start 04/13/19 at 16:45 Albuterol/ Ipratropium (Duoneb) 3 ml RTQID NEB ; Start 04/13/19 at 20:00 Allopurinol (Zyloprim) 200 mg DAILY PO Last administered on 04/14/19 08:45; Start 04/14/19 at 09:00 Amlodipine Besylate (Norvasc) 10 mg DAILY PO Last administered on 04/14/19 08:46; Start 04/14/19 at 09:00 Apixaban (Eliquis) 5 mg BID PO Last administered on 04/14/19 08:46; Start 04/13/19 at 21:00 Ascorbic Acid (Vitamin C) 1,000 mg DAILY PO Last administered on 04/14/19 08:46; Start 04/14/19 at 09:00 Clopidogrel Bisulfate (Plavix) 75 mg DAILY PO Last administered on 04/14/19 08:45; Start 04/14/19 at 09:00 EZETIMIBE (Zetia) 10 mg DAILY PO Last administered on 04/14/19 08:46; Start 04/14/19 at 09:00 Fentanyl Citrate (Fentanyl 2ml Vial) 50 mcg PRN Q1HR PRN IV PAIN; Start 04/13/19 at 16:30; Stop 04/14/19 at 16:29 Furosemide (Lasix) 40 mg DAILY PO ; Start 04/14/19 at 09:00; Stop 04/13/19 at 18:31; Status DC Gemfibrozil (Lopid) 600 mg DAILY PO Last administered on 04/14/19at 08:45; Start 04/14/19 at 09:00 Guaifenesin (Robitussin Dm) 10 ml PRN Q6HRS PRN PO COUGH; Start 04/13/19 at 16:45 Info (Anti-Coagulation Monitoring By Pharmacy) 1 each PRN DAILY PRN MC SEE COMMENTS; Start 04/13/19 at 17:00 Metoprolol Succinate (Toprol Xl) 100 mg DAILY PO Last administered on 04/14/19 08:47; Start 04/14/19 at 09:00 Multivitamins (Thera M Plus) 1 tab DAILY PO Last administered on 04/14/19at 08:45; Start 04/14/19 at 09:00 Multivitamins/ Minerals (I-Rehana) 1 tab DAILY PO Last administered on 10/26/19at 08:46; Start 04/14/19 at 09:00 Nitroglycerin (Nitrostat) 0.4 mg PRN Q5MIN PRN SL CHEST PAIN; Start 04/13/19 at 16:30; Stop 04/14/19 at 16:29 Non-Formulary Medication (Ubidecarenone (Co Q-10)) 200 mg DAILY PO ; Start 04/14/19 at 09:00; Status UNV Ondansetron HCl (Zofran) 4 mg PRN Q6HRS PRN IVP NAUSEA/VOMITING; Start 04/13/19 at 16:45 Ondansetron HCl (Zofran) 4 mg PRN Q8HRS PRN IV NAUSEA/VOMITING; Start 04/13/19 at 16:30; Stop 04/14/19 at 16:29 Pantoprazole Sodium (Protonix) 40 mg DAILYAC PO Last administered on 04/14/19at 08:45; Start 04/14/19 at 07:30 Polyethylene Glycol (miraLAX PACKET) 17 gm DAILY PO Last administered on 04/14/19at 08:45; Start 04/14/19 at 09:00 Sodium Chloride 1,000 ml @ 100 mls/hr 1X ONCE IV Last administered on 04/13/19at 19:58; Start 04/13/19 at 18:30; Stop 04/14/19 at 04:29; Status DC Tamsulosin HCl (Flomax) 0.4 mg HS PO Last administered on 04/13/19at 19:58; Start 04/13/19 at 21:00 Temazepam (Restoril) 7.5 mg PRN QHS PRN PO INSOMNIA; Start 04/13/19 at 16:45 Vitals/I & O Vital Sign - Last 24 Hours 04/13/19 04/13/19 04/13/19 04/13/19 15:48 16:30 17:33 19:30 Temp 97.6 97.5 97.6 97.6 97.5 97.6 Pulse 73 70 67 66 Resp 18 16 18 22 B/P (MAP) 137/64 (88) 129/61 (83) 162/70 (100) 179/78 (111) Pulse Ox 96 96 96 95 O2 Delivery Room Air Room Air Room Air Room Air 04/13/19 04/13/19 04/14/1919 19:35 23:00 03:15 03:37 Temp 97.8 98.3 97.8 98.3 Pulse 75 71 Resp 20 20 20 B/P (MAP) 180/78 (112) 164/75 (104) Pulse Ox 93 93 O2 Delivery Room Air Room Air Room Air 04/14/19 04/14/19 04/14/19 04/14/19 04:37 07:00 07:54 08:46 Temp 97.7 97.7 Pulse 77 77 Resp 18 20 B/P (MAP) 153/70 (97) 153/70 Pulse Ox 93 94 O2 Delivery Room Air Room Air Room Air 04/14/19 04/14/19 08:47 10:49 Pulse 77 B/P (MAP) 153/70 Pulse Ox 94 O2 Delivery Room Air Intake and Output 04/13/19 04/13/19 04/14/19 15:00 23:00 07:00 Intake Total 1297 ml Output Total 1000 ml 1300 ml Balance -1000 ml -3 ml CATARINA PONCE MD Apr 14, 2019 11:47
[2019-04-14 15:00] VITALS: BP 155/71
[2019-04-14 19:30] VITALS: BP 150/65
[2019-04-14] MEDS: TAMSULOSIN 0.4 MG CAP.ER.24H. PO SCH (20:53)
[2019-04-14] MEDS ORDERED: ALBUTEROL SULFATE 2.5 MG/3 ML NEBU. NEB PRN (21:15)
--- NOTE | 2019-04-14 22:12 | CONS ---
DATE OF CONSULTATION: 04/14/2019 REASON FOR CONSULTATION: Renal failure. HISTORY OF PRESENT ILLNESS: This is a 79-year-old gentleman with history of known hypertension and chronic kidney disease, stage 4. He is currently admitted with increasing shortness of breath and lower extremity edema. He is felt to be in decompensated congestive cardiomyopathy. His baseline furosemide was at 40 mg daily. The patient is currently improving. He denies shortness of breath or chest pain. PAST MEDICAL HISTORY: Chronic kidney disease, stage 4, hypertension, congestive cardiomyopathy, carotid endarterectomy, hyperlipidemia, degenerative arthritis, gout, benign prostatic hypertrophy, coronary bypass grafting and total hip replacement. ALLERGIES: PENICILLIN, AMIODARONE AND TRAMADOL. MEDICATIONS: Reviewed per medication list. FAMILY HISTORY: Noncontributory. SOCIAL HISTORY: The patient resides with . REVIEW OF SYSTEMS: No headaches, sinus problem, nasal drainage, epistaxis, change in vision or hearing. No difficulty swallowing. No fever, chills, cough, sputum, hemoptysis, chest pain, shortness of breath, PND, orthopnea or dyspnea on exertion. No abdominal pain. No nausea, vomiting, diarrhea. No seizures or malignancies. PHYSICAL EXAMINATION: GENERAL APPEARANCE: Awake, conversant, appropriate. HEENT: Clear. NECK: No increased JVD. No thyromegaly, mass, or adenopathy. LUNGS: Clear. CARDIAC: Without S3 or rub. ABDOMEN: Soft, nontender, no bruits. EXTREMITIES: Bilateral lower extremity edema, pitting 1-2+. NEUROLOGIC: Nonfocal. PSYCHIATRIC: Good attention to detail, appropriate affect. LABORATORY DATA: Hemoglobin 10.2, hematocrit 31%. Sodium 137, potassium 4.6, chloride 101, CO2 of 25, BUN 69, creatinine 3.9, GFR is 15. IMPRESSION: 1. Chronic kidney disease, stage 4, secondary to hypertension and hypertensive nephrosclerosis. 2. Congestive cardiomyopathy, decompensated. RECOMMENDATIONS: Appears to be improving. We would obtain fluid balance to optimize cardiopulmonary performance. At that point, can assess baseline renal function. Discussed this with the family. SUE INGRAM MD DR: JUAN MANUEL/natasha JOB#: [id number] / [id number]
[2019-04-14 23:12] VITALS: BP 148/69
[2019-04-15] MEDS: HYDROcodone/APAP 10/325 1 TAB TABLET PO PRN ×4 (02:04→23:05)
[2019-04-15 03:24] VITALS: BP 140/65
[2019-04-15 07:00] VITALS: BP 179/77
[2019-04-15 07:56] LABS: BASO # 0.1 x10^3/uL (0.0-0.2); BASO % 1 % (0-3); EOS # 0.5 x10^3/uL (0.0-0.7); EOS % 5 % (0-3); HEMATOCRIT 32.4 % (39.0-53.0); HEMOGLOBIN 10.5 g/dL (13.0-17.5); LYMPH # 1.2 x10^3/uL (1.0-4.8); LYMPH % 12 % (24-48); MEAN CORPUSCULAR HEMOGLOBIN 31 pg (25-35); MEAN CORPUSCULAR HGB CONC 32 g/dL (31-37); MEAN CORPUSCULAR VOLUME 95 fL (79-100); MONO # 0.9 x10^3/uL (0.0-1.1); MONO % 9 % (0-9); NEUT # 7.5 x10^3/uL (1.8-7.7); NEUT % 74 % (31-73); PLATELET COUNT 323 x10^3/uL (140-400); RED BLOOD COUNT 3.43 x10^6/uL (4.30-5.70); RED CELL DISTRIBUTION WIDTH 16.4 % (11.5-14.5); WHITE BLOOD COUNT 10.1 x10^3/uL (4.0-11.0)
[2019-04-15 08:17] LABS: ALBUMIN 3.7 g/dL (3.4-5.0); ALBUMIN/GLOBULIN RATIO 0.9 (1.0-1.7); CALCIUM 9.6 mg/dL (8.5-10.1); CREATININE 3.4 mg/dL (0.7-1.3); GFR 17.6; POTASSIUM 4.4 mmol/L (3.5-5.1); TOTAL BILIRUBIN 0.6 mg/dL (0.2-1.0); TOTAL PROTEIN 7.7 g/dL (6.4-8.2)
[2019-04-15] MEDS: CLOPIDOGREL BISULFATE 75 MG TABLET PO SCH (08:20)
[2019-04-15] MEDS: MULTIVITAMIN I-VITE TABLET. PO SCH (08:20)
[2019-04-15] MEDS: MULTIVITAMIN with MINERAL TABLET. PO SCH (08:20)
[2019-04-15] MEDS: ASCORBIC ACID 500 MG TABLET PO SCH (08:20)
[2019-04-15] MEDS: ALLOPURINOL 100 MG TABLET. PO SCH (08:20)
[2019-04-15] MEDS: PANTOPRAZOLE 40 MG TABLET.DR. PO SCH (08:20)
[2019-04-15] MEDS: GEMFIBROZIL 600 MG TABLET. PO SCH (08:21)
[2019-04-15] MEDS: METOPROLOL SUCC 24HR ER 100 MG TAB.ER.24H. PO SCH (08:21)
[2019-04-15] MEDS: amLODIPine BESYLATE 10 MG TABLET PO SCH (08:21)
[2019-04-15] MEDS: APIXABAN 5 MG TABLET. PO SCH ×2 (08:21→20:41)
[2019-04-15] MEDS: EZETIMIBE 10 MG TABLET. PO SCH (08:22)
[2019-04-15] MEDS: POLYETHYLENE GLYCOL 3350 17 GM PACKET. PO SCH (08:22)
[2019-04-15 11:00] VITALS: BP 133/59
--- NOTE | 2019-04-15 11:03 | PDOC ---
PROGRESS NOTES History of Present Illness History of Present Illness VTE Prophylaxis Ordered VTE Prophylaxis Devices: Yes VTE Pharmacological Prophylaxi: Yes Assessment/Plan Acute on chronic leg edema CHF exacerbation with elevated BNP and interstitial edema on CXR REcent CEA left done by DR Gonzalez 04/02- ff up vacs sx NOv 4 (already set up- healing very well per acct) Obesity BMI 32 DANNA on CKD - CREAT JUMPED TO 4, resent sono , Right kidney measures 12 cm x 5.15 cm x 5 cm. Left kidney measures 12.76 cm x 5.864 cm x 4.91 cm. No hydronephrosis. Right renal simple cyst at the interpolar region laterally is present measuring 2.6 cm x 2.7 cm x 2.6 cm. Renal cortical echotexture is unremarkable. No definitenephrolithiasis. Urinary bladder is mostly decompressed with a volume of 186 cc. urinary bladder postvoid residual of 36.8 cc is noted. FULL CODE hypertension normocytic anemia Generalized weakness Paroxysmal A. 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 cr= 1.5 10/01 History N STEMI Diabetes type 2 dysphagia pulmonary hypertension, mod-severe PLAN: CVC bed, 2 mN I and O I CONTINUED LASIX 40 qD - RENAL AND CARD CONSULTS PT.OT CARdiac diet COnt plavix eliquis etc BUT I HELD LOSARTAN BEC OF CREAT FULL CODE fe panel accuchecks d/w in room 36 min pt exam, chart review, > 50% of time spent with exam, chart review, pt care coordination Vitals Vitals Vital Signs Date Time Temp Pulse Resp B/P (MAP) Pulse Ox O2 Delivery O2 Flow Rate FiO2 04/15/19 08:21 70 179/77 04/15/19 08:00 Room Air 04/15/19 07:00 98.7 18 93 98.7 Physical Exam General: Alert, Oriented X3, Cooperative, No acute distress, Other (left neck incision clean and dry) Heart: Regular rate Lungs: Clear Abdomen: Normal bowel sounds, Soft, No tenderness, No masses Extremities: No clubbing, No cyanosis, Normal pulses, Other (plus 2 pittinge madelyn rigoberto on ankles, socks make a viviane) Skin: No rashes Labs LABS Laboratory Tests Test 04/15/19 06:20 04/15/19 07:40 White Blood Count 10.1 x10^3/uL (4.0-11.0) Red Blood Count 3.43 x10^6/uL (4.30-5.70) Hemoglobin 10.5 g/dL (13.0-17.5) Hematocrit 32.4 % (39.0-53.0) Mean Corpuscular Volume 95 fL (79-100) Mean Corpuscular Hemoglobin 31 pg (25-35) Mean Corpuscular Hemoglobin Concent 32 g/dL (31-37) Red Cell Distribution Width 16.4 % (11.5-14.5) Platelet Count 323 x10^3/uL (140-400) Neutrophils (%) (Auto) 74 % (31-73) Lymphocytes (%) (Auto) 12 % (24-48) Monocytes (%) (Auto) 9 % (0-9) Eosinophils (%) (Auto) 5 % (0-3) Basophils (%) (Auto) 1 % (0-3) Neutrophils # (Auto) 7.5 x10^3/uL (1.8-7.7) Lymphocytes # (Auto) 1.2 x10^3/uL (1.0-4.8) Monocytes # (Auto) 0.9 x10^3/uL (0.0-1.1) Eosinophils # (Auto) 0.5 x10^3/uL (0.0-0.7) Basophils # (Auto) 0.1 x10^3/uL (0.0-0.2) Sodium Level 136 mmol/L (136-145) Potassium Level 4.4 mmol/L (3.5-5.1) Chloride Level 97 mmol/L (98-107) Carbon Dioxide Level 26 mmol/L (21-32) Anion Gap 13 (6-14) Blood Urea Nitrogen 63 mg/dL (8-26) Creatinine 3.4 mg/dL (0.7-1.3) Estimated GFR (Cockcroft-Gault) 17.6 BUN/Creatinine Ratio 19 (6-20) Glucose Level 107 mg/dL (70-99) Calcium Level 9.6 mg/dL (8.5-10.1) Total Bilirubin 0.6 mg/dL (0.2-1.0) Aspartate Amino Transf (AST/SGOT) 13 U/L (15-37) Alanine Aminotransferase (ALT/SGPT) 10 U/L (16-63) Alkaline Phosphatase 82 U/L (46-116) Total Protein 7.7 g/dL (6.4-8.2) Albumin 3.7 g/dL (3.4-5.0) Albumin/Globulin Ratio 0.9 (1.0-1.7) Glucose (Fingerstick) 115 mg/dL (70-99) Assessment and Plan Assessmemt and Plan Problems Medical Problems: (1) Acute on chronic renal failure Status: Acute (2) CHF exacerbation Status: Acute Comment Review of Relevant I have reviewed the following items viviane (where applicable) has been applied. Labs Laboratory Tests Test 04/13/19 15:15 04/13/19 16:07 04/13/19 20:46 04/14/19 04:35 Urine Collection Type Unknown Urine Color Yellow Urine Clarity Clear Urine pH 6.0 Urine Specific [place] 1.010 Urine Protein Negative mg/dL (NEG-TRACE) Urine Glucose (UA) Negative mg/dL (NEG) Urine Ketones (Stick) Negative mg/dL (NEG) Urine Blood Negative (NEG) Urine Nitrite Negative (NEG) Urine Bilirubin Negative (NEG) Urine Urobilinogen Dipstick 0.2 mg/dL (0.2 mg/dL) Urine Leukocyte Esterase Negative (NEG) Urine RBC 0 /HPF (0-2) Urine WBC 0 /HPF (0-4) Urine Bacteria 0 /HPF (0-FEW) Urine Opiates Screen Pos (NEG) Urine Methadone Screen Neg (NEG) Urine Barbiturates Neg (NEG) Urine Phencyclidine Screen Neg (NEG) Urine Amphetamine/Methamphetamine Neg (NEG) Urine Benzodiazepines Screen Neg (NEG) Urine Cocaine Screen Neg (NEG) Urine Cannabinoids Screen Neg (NEG) Urine Ethyl Alcohol Neg (NEG) White Blood Count 7.9 x10^3/uL (4.0-11.0) Red Blood Count 3.28 x10^6/uL (4.30-5.70) Hemoglobin 10.2 g/dL (13.0-17.5) Hematocrit 31.4 % (39.0-53.0) Mean Corpuscular Volume 96 fL (79-100) Mean Corpuscular Hemoglobin 31 pg (25-35) Mean Corpuscular Hemoglobin Concent 32 g/dL (31-37) Red Cell Distribution Width 16.6 % (11.5-14.5) Platelet Count 307 x10^3/uL (140-400) Neutrophils (%) (Auto) 70 % (31-73) Lymphocytes (%) (Auto) 15 % (24-48) Monocytes (%) (Auto) 9 % (0-9) Eosinophils (%) (Auto) 6 % (0-3) Basophils (%) (Auto) 1 % (0-3) Neutrophils # (Auto) 5.5 x10^3/uL (1.8-7.7) Lymphocytes # (Auto) 1.2 x10^3/uL (1.0-4.8) Monocytes # (Auto) 0.7 x10^3/uL (0.0-1.1) Eosinophils # (Auto) 0.5 x10^3/uL (0.0-0.7) Basophils # (Auto) 0.0 x10^3/uL (0.0-0.2) Sodium Level 136 mmol/L (136-145) 137 mmol/L (136-145) Potassium Level 4.8 mmol/L (3.5-5.1) 4.6 mmol/L (3.5-5.1) Chloride Level 98 mmol/L (98-107) 101 mmol/L (98-107) Carbon Dioxide Level 26 mmol/L (21-32) 25 mmol/L (21-32) Anion Gap 12 (6-14) 11 (6-14) Blood Urea Nitrogen 74 mg/dL (8-26) 69 mg/dL (8-26) Creatinine 4.3 mg/dL (0.7-1.3) 3.9 mg/dL (0.7-1.3) Estimated GFR (Cockcroft-Gault) 13.4 15.0 BUN/Creatinine Ratio 17 (6-20) Glucose Level 142 mg/dL (70-99) 111 mg/dL (70-99) Calcium Level 9.5 mg/dL (8.5-10.1) 9.0 mg/dL (8.5-10.1) Magnesium Level 2.8 mg/dL (1.8-2.4) Total Bilirubin 0.5 mg/dL (0.2-1.0) Aspartate Amino Transf (AST/SGOT) 13 U/L (15-37) Alanine Aminotransferase (ALT/SGPT) 12 U/L (16-63) Alkaline Phosphatase 89 U/L (46-116) Creatine Kinase 65 U/L (39-308) Creatine Kinase MB (Mass) 1.4 ng/mL (0.0-3.6) Creatine Kinase MB Relative Index % (0-4) Troponin I Quantitative < 0.017 ng/mL (0.000-0.055) [id number]-Type Natriuretic Peptide 81959 pg/mL (0-449) Total Protein 7.7 g/dL (6.4-8.2) Albumin 3.6 g/dL (3.4-5.0) Albumin/Globulin Ratio 0.9 (1.0-1.7) Glucose (Fingerstick) 166 mg/dL (70-99) Iron Level 27 ug/dL (65-175) Total Iron Binding Capacity 283 ug/dL (250-450) Iron Saturation 10 % (15-34) Test 04/15/19 06:20 04/15/19 07:40 White Blood Count 10.1 x10^3/uL (4.0-11.0) Red Blood Count 3.43 x10^6/uL (4.30-5.70) Hemoglobin 10.5 g/dL (13.0-17.5) Hematocrit 32.4 % (39.0-53.0) Mean Corpuscular Volume 95 fL (79-100) Mean Corpuscular Hemoglobin 31 pg (25-35) Mean Corpuscular Hemoglobin Concent 32 g/dL (31-37) Red Cell Distribution Width 16.4 % (11.5-14.5) Platelet Count 323 x10^3/uL (140-400) Neutrophils (%) (Auto) 74 % (31-73) Lymphocytes (%) (Auto) 12 % (24-48) Monocytes (%) (Auto) 9 % (0-9) Eosinophils (%) (Auto) 5 % (0-3) Basophils (%) (Auto) 1 % (0-3) Neutrophils # (Auto) 7.5 x10^3/uL (1.8-7.7) Lymphocytes # (Auto) 1.2 x10^3/uL (1.0-4.8) Monocytes # (Auto) 0.9 x10^3/uL (0.0-1.1) Eosinophils # (Auto) 0.5 x10^3/uL (0.0-0.7) Basophils # (Auto) 0.1 x10^3/uL (0.0-0.2) Sodium Level 136 mmol/L (136-145) Potassium Level 4.4 mmol/L (3.5-5.1) Chloride Level 97 mmol/L (98-107) Carbon Dioxide Level 26 mmol/L (21-32) Anion Gap 13 (6-14) Blood Urea Nitrogen 63 mg/dL (8-26) Creatinine 3.4 mg/dL (0.7-1.3) Estimated GFR (Cockcroft-Gault) 17.6 BUN/Creatinine Ratio 19 (6-20) Glucose Level 107 mg/dL (70-99) Calcium Level 9.6 mg/dL (8.5-10.1) Total Bilirubin 0.6 mg/dL (0.2-1.0) Aspartate Amino Transf (AST/SGOT) 13 U/L (15-37) Alanine Aminotransferase (ALT/SGPT) 10 U/L (16-63) Alkaline Phosphatase 82 U/L (46-116) Total Protein 7.7 g/dL (6.4-8.2) Albumin 3.7 g/dL (3.4-5.0) Albumin/Globulin Ratio 0.9 (1.0-1.7) Glucose (Fingerstick) 115 mg/dL (70-99) Laboratory Tests Test 04/15/19 06:20 04/15/19 07:40 White Blood Count 10.1 x10^3/uL (4.0-11.0) Red Blood Count 3.43 x10^6/uL (4.30-5.70) Hemoglobin 10.5 g/dL (13.0-17.5) Hematocrit 32.4 % (39.0-53.0) Mean Corpuscular Volume 95 fL (79-100) Mean Corpuscular Hemoglobin 31 pg (25-35) Mean Corpuscular Hemoglobin Concent 32 g/dL (31-37) Red Cell Distribution Width 16.4 % (11.5-14.5) Platelet Count 323 x10^3/uL (140-400) Neutrophils (%) (Auto) 74 % (31-73) Lymphocytes (%) (Auto) 12 % (24-48) Monocytes (%) (Auto) 9 % (0-9) Eosinophils (%) (Auto) 5 % (0-3) Basophils (%) (Auto) 1 % (0-3) Neutrophils # (Auto) 7.5 x10^3/uL (1.8-7.7) Lymphocytes # (Auto) 1.2 x10^3/uL (1.0-4.8) Monocytes # (Auto) 0.9 x10^3/uL (0.0-1.1) Eosinophils # (Auto) 0.5 x10^3/uL (0.0-0.7) Basophils # (Auto) 0.1 x10^3/uL (0.0-0.2) Sodium Level 136 mmol/L (136-145) Potassium Level 4.4 mmol/L (3.5-5.1) Chloride Level 97 mmol/L (98-107) Carbon Dioxide Level 26 mmol/L (21-32) Anion Gap 13 (6-14) Blood Urea Nitrogen 63 mg/dL (8-26) Creatinine 3.4 mg/dL (0.7-1.3) Estimated GFR (Cockcroft-Gault) 17.6 BUN/Creatinine Ratio 19 (6-20) Glucose Level 107 mg/dL (70-99) Calcium Level 9.6 mg/dL (8.5-10.1) Total Bilirubin 0.6 mg/dL (0.2-1.0) Aspartate Amino Transf (AST/SGOT) 13 U/L (15-37) Alanine Aminotransferase (ALT/SGPT) 10 U/L (16-63) Alkaline Phosphatase 82 U/L (46-116) Total Protein 7.7 g/dL (6.4-8.2) Albumin 3.7 g/dL (3.4-5.0) Albumin/Globulin Ratio 0.9 (1.0-1.7) Glucose (Fingerstick) 115 mg/dL (70-99) Medications Current Medications Ondansetron HCl (Zofran) 4 mg PRN Q8HRS PRN IV NAUSEA/VOMITING; Start 04/13/19 at 16:30; Stop 04/14/19 at 16:29; Status DC Fentanyl Citrate (Fentanyl 2ml Vial) 50 mcg PRN Q1HR PRN IV PAIN; Start 04/13/19 at 16:30; Stop 04/14/19 at 16:29; Status DC Acetaminophen (Tylenol) 650 mg PRN Q4HRS PRN PO FEVER; Start 04/13/19 at 16:30; Stop 04/14/19 at 16:29; Status DC Nitroglycerin (Nitrostat) 0.4 mg PRN Q5MIN PRN SL CHEST PAIN; Start 04/13/19 at 16:30; Stop 04/14/19 at 16:29; Status DC Acetaminophen (Tylenol) 500 mg PRN Q6HRS PRN PO MILD PAIN / TEMP; Start 04/13/19 at 16:45 Allopurinol (Zyloprim) 200 mg DAILY PO Last administered on 04/15/19 08:20; Start 04/14/19 at 09:00 Amlodipine Besylate (Norvasc) 10 mg DAILY PO Last administered on 04/15/19 08:21; Start 04/14/19 at 09:00 Apixaban (Eliquis) 5 mg BID PO Last administered on 04/15/19 08:21; Start 04/13/19 at 21:00 Clopidogrel Bisulfate (Plavix) 75 mg DAILY PO Last administered on 04/15/19 08:20; Start 04/14/19 at 09:00 EZETIMIBE (Zetia) 10 mg DAILY PO Last administered on 04/15/19 08:22; Start 04/14/19 at 09:00 Furosemide (Lasix) 40 mg DAILY PO ; Start 04/14/19 at 09:00; Stop 04/13/19 at 18:31; Status DC Gemfibrozil (Lopid) 600 mg DAILY PO Last administered on 04/15/19 08:21; Start 04/14/19 at 09:00 Acetaminophen/ Hydrocodone Bitart (Lortab 10/325) 1 tab PRN Q6HRS PRN PO PAIN MOD TO SEV Last administered on 04/15/19 02:04; Start 04/13/19 at 16:45 Metoprolol Succinate (Toprol Xl) 100 mg DAILY PO Last administered on 04/15/19at 08:21; Start 04/14/19 at 09:00 Polyethylene Glycol (miraLAX PACKET) 17 gm DAILY PO Last administered on 04/15/19 08:22; Start 04/14/19 at 09:00 Tamsulosin HCl (Flomax) 0.4 mg HS PO Last administered on 04/14/19at 20:53; Start 04/13/19 at 21:00 Ascorbic Acid (Vitamin C) 1,000 mg DAILY PO Last administered on 04/15/19 08:20; Start 04/14/19 at 09:00 Pantoprazole Sodium (Protonix) 40 mg DAILYAC PO Last administered on 04/15/19 08:20; Start 04/14/19 at 07:30 Multivitamins (Thera M Plus) 1 tab DAILY PO Last administered on 04/15/19at 08:20; Start 04/14/19 at 09:00 Non-Formulary Medication (Ubidecarenone (Co Q-10)) 200 mg DAILY PO ; Start 04/14/19 at 09:00; Status UNV Multivitamins/ Minerals (I-Rehana) 1 tab DAILY PO Last administered on 04/15/19at 08:20; Start 04/14/19 at 09:00 Temazepam (Restoril) 7.5 mg PRN QHS PRN PO INSOMNIA; Start 04/13/19 at 16:45 Ondansetron HCl (Zofran) 4 mg PRN Q6HRS PRN IVP NAUSEA/VOMITING; Start 04/13/19 at 16:45 Albuterol/ Ipratropium (Duoneb) 3 ml RTQID NEB ; Start 04/13/19 at 20:00; Stop 04/14/19 at 21:07; Status DC Guaifenesin (Robitussin Dm) 10 ml PRN Q6HRS PRN PO COUGH; Start 04/13/19 at 16:45 Info (Anti-Coagulation Monitoring By Pharmacy) 1 each PRN DAILY PRN MC SEE COMMENTS; Start 04/13/19 at 17:00 Sodium Chloride 1,000 ml @ 100 mls/hr 1X ONCE IV Last administered on 04/13/19at 19:58; Start 04/13/19 at 18:30; Stop 04/14/19 at 04:29; Status DC Albuterol Sulfate (Ventolin Neb Soln) 2.5 mg PRN QID PRN NEB SHORTNESS OF BREATH; Start 04/14/19 at 21:15 Active Scripts Active Acetaminophen 500 Mg Tablet 500 Mg PO PRN Q6HRS PRN 14 Days Eliquis (Apixaban) 5 Mg Tablet 5 Mg PO BID 30 Days Reported Miralax (Polyethylene Glycol 3350) 17 Gm Powd.pack 1 Pkt PO DAILY Hydrocodone-Apap 10-325 (Hydrocodone Bit/Acetaminophen) 1 Tab Tablet 1 Tab PO PRN Q6HRS PRN Preservision Areds Tablet (Vit A/Vit C/Vit E/Zinc/Copper) 1 Each Tablet 1 Each PO DAILY Allopurinol 300 Mg Tablet 300 Mg PO DAILY Furosemide 40 Mg Tablet 40 Mg PO DAILY Toprol Xl (Metoprolol Succinate) 50 Mg Tab.er.24h 100 Mg PO DAILY Flomax (Tamsulosin Hcl) 0.4 Mg Cap.er.24h 1 Cap PO HS Amlodipine Besylate 5 Mg Tablet 10 Mg PO DAILY Testosterone Cypionate 200 Mg/1 Ml Vial 1 Ml IM [id number] Clopidogrel (Clopidogrel Bisulfate) 75 Mg Tablet 1 Tab PO DAILY Vitamin C (Ascorbic Acid) 1,000 Mg Tablet 1,000 Mg PO DAILY Co Q-10 (Ubidecarenone) 200 Mg Capsule 200 Mg PO DAILY Krill Oil 500 Mg Capsule 500 Mg PO Multi-Vitamin Daily (Multivitamin) 1 Each Tablet 1 Each PO DAILY Gemfibrozil 600 Mg Tablet 1 Tab PO DAILY Zetia (Ezetimibe) 10 Mg Tablet 1 Tab PO DAILY Losartan Potassium 100 Mg Tablet 100 Mg PO DAILY Nexium Capsule (Esomeprazole Magnesium) 40 Mg Capsule. 1 Cap PO DAILY Vitals/I & O Vital Sign - Last 24 Hours 04/14/19 04/14/19 04/14/19 04/14/19 11:49 15:00 18:36 19:23 Temp 97.7 97.7 Pulse 70 Resp 18 B/P (MAP) 155/71 (99) Pulse Ox 94 94 94 O2 Delivery Room Air Room Air Room Air Room Air 04/14/19 04/14/19 04/14/19 04/15/19 19:30 19:40 23:12 02:04 Temp 98.0 98.1 98.0 98.1 Pulse 68 69 Resp 22 18 22 18 B/P (MAP) 150/65 (93) 148/69 (95) Pulse Ox 95 96 O2 Delivery Room Air Room Air Room Air Room Air 04/15/19 04/15/19 04/15/19 04/15/19 03:10 03:24 07:00 08:00 Temp 98.0 98.7 98.0 98.7 Pulse 77 70 Resp 16 18 18 B/P (MAP) 140/65 (90) 179/77 (111) Pulse Ox 91 93 O2 Delivery Room Air Room Air Room Air Room Air 04/15/19 04/15/19 08:21 08:21 Pulse 70 70 B/P (MAP) 179/77 179/77 Intake and Output 04/14/19 04/14/19 04/15/19 15:00 23:00 07:00 Intake Total 1000 ml 250 ml 570 ml Output Total 250 ml 725 ml 1200 ml Balance 750 ml -475 ml -630 ml KAREN REYES MD Apr 15, 2019 11:03
--- NOTE | 2019-04-15 12:21 | PDOC ---
PROGRESS NOTES Subjective Subjective Feeling better. Dyspnea improved and continues to have edema Objective Objective Vital Signs Date Time Temp Pulse Resp B/P (MAP) Pulse Ox O2 Delivery O2 Flow Rate FiO2 04/15/19 11:00 98.5 79 18 133/59 (83) 93 Room Air 98.5 Intake and Output 04/15/19 07:00 Intake Total 1820 ml Output Total 2175 ml Balance -355 ml Intake Oral 1820 ml Output Urine Total 2175 ml Physical Exam Abdomen: Normal bowel sounds, Soft, No tenderness, No masses Heart: Regular rate Extremities: No clubbing, No cyanosis, Normal pulses, Other (2+ pitting edema) General: Alert, No acute distress HEENT: Atraumatic, PERRLA, EOMI Lungs: Normal air movement, Other (SCE< crackles bases, no wheezing) Neuro: Normal speech, Normal tone, Reflexes 2+ Psych/Mental Status: Mental status NL, Mood NL Skin: No rashes Assessment Assessment 1. Acute on chronic decompensated diastolic/systolic HF: Slowly improving with diuresis. Continue current medical regimen. 2. Acute on chronic renal failure: Nephrology following 3. HTN: Controlled 4. CAD: Clinically stable and chest pain-free 5. PVD: Stable 6. s/p LCEA Plan Plan of Care Problems Medical Problems: (1) Acute on chronic renal failure Status: Acute (2) CHF exacerbation Status: Acute Comment Review of Relevant I have reviewed the following items viviane (where applicable) has been applied. Labs Laboratory Tests Test 04/15/19 06:20 04/15/19 07:40 04/15/19 11:27 White Blood Count 10.1 x10^3/uL (4.0-11.0) Red Blood Count 3.43 x10^6/uL (4.30-5.70) Hemoglobin 10.5 g/dL (13.0-17.5) Hematocrit 32.4 % (39.0-53.0) Mean Corpuscular Volume 95 fL (79-100) Mean Corpuscular Hemoglobin 31 pg (25-35) Mean Corpuscular Hemoglobin Concent 32 g/dL (31-37) Red Cell Distribution Width 16.4 % (11.5-14.5) Platelet Count 323 x10^3/uL (140-400) Neutrophils (%) (Auto) 74 % (31-73) Lymphocytes (%) (Auto) 12 % (24-48) Monocytes (%) (Auto) 9 % (0-9) Eosinophils (%) (Auto) 5 % (0-3) Basophils (%) (Auto) 1 % (0-3) Neutrophils # (Auto) 7.5 x10^3/uL (1.8-7.7) Lymphocytes # (Auto) 1.2 x10^3/uL (1.0-4.8) Monocytes # (Auto) 0.9 x10^3/uL (0.0-1.1) Eosinophils # (Auto) 0.5 x10^3/uL (0.0-0.7) Basophils # (Auto) 0.1 x10^3/uL (0.0-0.2) Sodium Level 136 mmol/L (136-145) Potassium Level 4.4 mmol/L (3.5-5.1) Chloride Level 97 mmol/L (98-107) Carbon Dioxide Level 26 mmol/L (21-32) Anion Gap 13 (6-14) Blood Urea Nitrogen 63 mg/dL (8-26) Creatinine 3.4 mg/dL (0.7-1.3) Estimated GFR (Cockcroft-Gault) 17.6 BUN/Creatinine Ratio 19 (6-20) Glucose Level 107 mg/dL (70-99) Calcium Level 9.6 mg/dL (8.5-10.1) Total Bilirubin 0.6 mg/dL (0.2-1.0) Aspartate Amino Transf (AST/SGOT) 13 U/L (15-37) Alanine Aminotransferase (ALT/SGPT) 10 U/L (16-63) Alkaline Phosphatase 82 U/L (46-116) Total Protein 7.7 g/dL (6.4-8.2) Albumin 3.7 g/dL (3.4-5.0) Albumin/Globulin Ratio 0.9 (1.0-1.7) Glucose (Fingerstick) 115 mg/dL (70-99) 164 mg/dL (70-99) Medications Current Medications Albuterol Sulfate (Ventolin Neb Soln) 2.5 mg PRN QID PRN NEB SHORTNESS OF BREATH; Start 04/14/19 at 21:15 Vitals/I & O Vital Sign - Last 24 Hours 04/14/19 04/14/19 04/14/19 04/14/19 15:00 18:36 19:23 19:30 Temp 97.7 98.0 97.7 98.0 Pulse 70 68 Resp 18 22 B/P (MAP) 155/71 (99) 150/65 (93) Pulse Ox 94 94 95 O2 Delivery Room Air Room Air Room Air Room Air 04/14/19 04/14/19 04/15/19 04/15/19 19:40 23:12 02:04 03:10 Temp 98.1 98.1 Pulse 69 Resp 18 22 18 16 B/P (MAP) 148/69 (95) Pulse Ox 96 O2 Delivery Room Air Room Air Room Air Room Air 04/15/19 04/15/19 04/15/19 04/15/19 03:24 07:00 08:00 08:21 Temp 98.0 98.7 98.0 98.7 Pulse 77 70 70 Resp 18 18 B/P (MAP) 140/65 (90) 179/77 (111) 179/77 Pulse Ox 91 93 O2 Delivery Room Air Room Air Room Air 04/15/19 04/15/19 08:21 11:00 Temp 98.5 98.5 Pulse 70 79 Resp 18 B/P (MAP) 179/77 133/59 (83) Pulse Ox 93 O2 Delivery Room Air Intake and Output 04/14/19 04/14/19 04/15/19 15:00 23:00 07:00 Intake Total 1000 ml 250 ml 570 ml Output Total 250 ml 725 ml 1200 ml Balance 750 ml -475 ml -630 ml CATARINA PONCE MD Apr 15, 2019 12:21
[2019-04-15 15:00] VITALS: BP 126/59
[2019-04-15 19:25] VITALS: BP 148/66
[2019-04-15] MEDS: TAMSULOSIN 0.4 MG CAP.ER.24H. PO SCH (20:42)
[2019-04-15 23:10] VITALS: BP 176/76
[2019-04-16 03:20] VITALS: BP 193/79
[2019-04-16] MEDS ORDERED: hydrALAZINE 20 MG/ML VIAL. IVP PRN (03:30)
--- NOTE | 2019-04-16 03:30 | NUR ---
Call to Dr Sheffield regarding patients blood pressure of 193/79. Pt states he is in some pain and anxious. Some shortness of air. Other vital signs stable. orders received. will continue to monitor.
[2019-04-16] MEDS: HYDROcodone/APAP 10/325 1 TAB TABLET PO PRN ×3 (04:33→18:26)
[2019-04-16 05:07] LABS: ALBUMIN 3.6 g/dL (3.4-5.0); CALCIUM 9.7 mg/dL (8.5-10.1); CREATININE 3.7 mg/dL (0.7-1.3); PHOSPHORUS 3.6 mg/dL (2.6-4.7); POTASSIUM 4.7 mmol/L (3.5-5.1)
--- NOTE | 2019-04-16 05:33 | NUR ---
Pt has had chills and states he can't get warm. Checked temperature 98.9 oral. Will continue to monitor.
[2019-04-16 07:00] VITALS: BP 130/65
[2019-04-16] MEDS: PANTOPRAZOLE 40 MG TABLET.DR. PO SCH (07:30)
[2019-04-16] MEDS: POLYETHYLENE GLYCOL 3350 17 GM PACKET. PO SCH (08:46)
[2019-04-16] MEDS: GEMFIBROZIL 600 MG TABLET. PO SCH (08:46)
[2019-04-16] MEDS: MULTIVITAMIN I-VITE TABLET. PO SCH (08:46)
[2019-04-16] MEDS: amLODIPine BESYLATE 10 MG TABLET PO SCH (08:46)
[2019-04-16] MEDS: MULTIVITAMIN with MINERAL TABLET. PO SCH (08:46)
[2019-04-16] MEDS: APIXABAN 5 MG TABLET. PO SCH (08:46)
[2019-04-16] MEDS: EZETIMIBE 10 MG TABLET. PO SCH (08:46)
[2019-04-16] MEDS: CLOPIDOGREL BISULFATE 75 MG TABLET PO SCH (08:46)
[2019-04-16] MEDS: METOPROLOL SUCC 24HR ER 100 MG TAB.ER.24H. PO SCH (08:46)
[2019-04-16] MEDS: ASCORBIC ACID 500 MG TABLET PO SCH (08:47)
[2019-04-16] MEDS: ALLOPURINOL 100 MG TABLET. PO SCH (08:47)
--- NOTE | 2019-04-16 10:40 | PDOC ---
PROGRESS NOTES Chief Complaint Chief Complaint A/P: Acute on chronic leg edema CHF exacerbation with elevated BNP and interstitial edema on CXR Recent CEA left done by DR Pickard 04/02- ff up vacs sx NOv 4 (already set up- healing very well per acct) Obesity BMI 32 DANNA on CKD - CREAT JUMPED TO 4, Hypertension Normocytic anemia Generalized weakness Paroxysmal A. 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 cr= 1.5 10/01 Diabetes type 2 Dysphagia pulmonary hypertension, mod-severe PLAN: CVC bed, 2 mN I and O Lasix on hold RENAL AND CARD CONSULTS PT.OT d/w in room 36 min pt exam, chart review, > 50% of time spent with exam, chart review, pt care coordination History of Present Illness History of Present Illness Mr Bardales is a 79-year-old M w/ PMHx hypertension, CHF, PVD, carotid disease s/p recent left CEA on 04/02, and chronic kidney disease, stage 4. He was admitted with increasing shortness of breath and lower extremity edema. He was felt to be in decompensated congestive cardiomyopathy. Seen by cardiology and nephrology in consultation. He still has ROBERTS walking 20 feet in the hallway and orthopnea. CR 3.7 today (4.3 on admit). D/w nephrology to continue holding diuretics and cardiology that volume status with a RHC would be appropriate. He is amenable to the likely inevitability of renal replacement therapy given his Cr was 1.7 earlier this year, but has been progressively worsening since September. Has a small hematoma on his left neck, stable. Vitals Vitals Vital Signs Date Time Temp Pulse Resp B/P (MAP) Pulse Ox O2 Delivery O2 Flow Rate FiO2 04/16/19 08:46 96 130/65 04/16/19 08:00 Room Air 04/16/19 07:00 98.5 18 93 98.5 Physical Exam General: Alert, Oriented X3, Cooperative, No acute distress, Other (left neck incision clean and dry) Heart: Regular rate Lungs: Clear Abdomen: Normal bowel sounds, Soft, No tenderness, No masses Extremities: No clubbing, No cyanosis, Normal pulses, Other (2+ pitting edema) Skin: No rashes Labs LABS Laboratory Tests Test 04/15/19 11:27 04/15/19 16:53 04/15/19 20:44 04/16/19 03:35 Glucose (Fingerstick) 164 mg/dL (70-99) 115 mg/dL (70-99) 143 mg/dL (70-99) Sodium Level 134 mmol/L (136-145) Potassium Level 4.7 mmol/L (3.5-5.1) Chloride Level 97 mmol/L (98-107) Carbon Dioxide Level 24 mmol/L (21-32) Anion Gap 13 (6-14) Blood Urea Nitrogen 64 mg/dL (8-26) Creatinine 3.7 mg/dL (0.7-1.3) Estimated GFR (Cockcroft-Gault) 16.0 Glucose Level 114 mg/dL (70-99) Calcium Level 9.7 mg/dL (8.5-10.1) Phosphorus Level 3.6 mg/dL (2.6-4.7) Albumin 3.6 g/dL (3.4-5.0) Test 04/16/19 07:10 Glucose (Fingerstick) 125 mg/dL (70-99) Assessment and Plan Assessmemt and Plan Problems Medical Problems: (1) Acute on chronic renal failure Status: Acute (2) CHF exacerbation Status: Acute Comment Review of Relevant I have reviewed the following items viviane (where applicable) has been applied. Labs Laboratory Tests Test 04/15/19 06:20 04/15/19 07:40 04/15/19 11:27 04/15/19 16:53 White Blood Count 10.1 x10^3/uL (4.0-11.0) Red Blood Count 3.43 x10^6/uL (4.30-5.70) Hemoglobin 10.5 g/dL (13.0-17.5) Hematocrit 32.4 % (39.0-53.0) Mean Corpuscular Volume 95 fL (79-100) Mean Corpuscular Hemoglobin 31 pg (25-35) Mean Corpuscular Hemoglobin Concent 32 g/dL (31-37) Red Cell Distribution Width 16.4 % (11.5-14.5) Platelet Count 323 x10^3/uL (140-400) Neutrophils (%) (Auto) 74 % (31-73) Lymphocytes (%) (Auto) 12 % (24-48) Monocytes (%) (Auto) 9 % (0-9) Eosinophils (%) (Auto) 5 % (0-3) Basophils (%) (Auto) 1 % (0-3) Neutrophils # (Auto) 7.5 x10^3/uL (1.8-7.7) Lymphocytes # (Auto) 1.2 x10^3/uL (1.0-4.8) Monocytes # (Auto) 0.9 x10^3/uL (0.0-1.1) Eosinophils # (Auto) 0.5 x10^3/uL (0.0-0.7) Basophils # (Auto) 0.1 x10^3/uL (0.0-0.2) Sodium Level 136 mmol/L (136-145) Potassium Level 4.4 mmol/L (3.5-5.1) Chloride Level 97 mmol/L (98-107) Carbon Dioxide Level 26 mmol/L (21-32) Anion Gap 13 (6-14) Blood Urea Nitrogen 63 mg/dL (8-26) Creatinine 3.4 mg/dL (0.7-1.3) Estimated GFR (Cockcroft-Gault) 17.6 BUN/Creatinine Ratio 19 (6-20) Glucose Level 107 mg/dL (70-99) Calcium Level 9.6 mg/dL (8.5-10.1) Total Bilirubin 0.6 mg/dL (0.2-1.0) Aspartate Amino Transf (AST/SGOT) 13 U/L (15-37) Alanine Aminotransferase (ALT/SGPT) 10 U/L (16-63) Alkaline Phosphatase 82 U/L (46-116) Total Protein 7.7 g/dL (6.4-8.2) Albumin 3.7 g/dL (3.4-5.0) Albumin/Globulin Ratio 0.9 (1.0-1.7) Glucose (Fingerstick) 115 mg/dL (70-99) 164 mg/dL (70-99) 115 mg/dL (70-99) Test 04/15/19 20:44 04/16/19 03:35 04/16/19 07:10 Glucose (Fingerstick) 143 mg/dL (70-99) 125 mg/dL (70-99) Sodium Level 134 mmol/L (136-145) Potassium Level 4.7 mmol/L (3.5-5.1) Chloride Level 97 mmol/L (98-107) Carbon Dioxide Level 24 mmol/L (21-32) Anion Gap 13 (6-14) Blood Urea Nitrogen 64 mg/dL (8-26) Creatinine 3.7 mg/dL (0.7-1.3) Estimated GFR (Cockcroft-Gault) 16.0 Glucose Level 114 mg/dL (70-99) Calcium Level 9.7 mg/dL (8.5-10.1) Phosphorus Level 3.6 mg/dL (2.6-4.7) Albumin 3.6 g/dL (3.4-5.0) Laboratory Tests Test 04/15/19 11:27 04/15/19 16:53 04/15/19 20:44 04/16/19 03:35 Glucose (Fingerstick) 164 mg/dL (70-99) 115 mg/dL (70-99) 143 mg/dL (70-99) Sodium Level 134 mmol/L (136-145) Potassium Level 4.7 mmol/L (3.5-5.1) Chloride Level 97 mmol/L (98-107) Carbon Dioxide Level 24 mmol/L (21-32) Anion Gap 13 (6-14) Blood Urea Nitrogen 64 mg/dL (8-26) Creatinine 3.7 mg/dL (0.7-1.3) Estimated GFR (Cockcroft-Gault) 16.0 Glucose Level 114 mg/dL (70-99) Calcium Level 9.7 mg/dL (8.5-10.1) Phosphorus Level 3.6 mg/dL (2.6-4.7) Albumin 3.6 g/dL (3.4-5.0) Test 04/16/19 07:10 Glucose (Fingerstick) 125 mg/dL (70-99) Medications Current Medications Ondansetron HCl (Zofran) 4 mg PRN Q8HRS PRN IV NAUSEA/VOMITING; Start 04/13/19 at 16:30; Stop 04/14/19 at 16:29; Status DC Fentanyl Citrate (Fentanyl 2ml Vial) 50 mcg PRN Q1HR PRN IV PAIN; Start 04/13/19 at 16:30; Stop 04/14/19 at 16:29; Status DC Acetaminophen (Tylenol) 650 mg PRN Q4HRS PRN PO FEVER; Start 04/13/19 at 16:30; Stop 04/14/19 at 16:29; Status DC Nitroglycerin (Nitrostat) 0.4 mg PRN Q5MIN PRN SL CHEST PAIN; Start 04/13/19 at 16:30; Stop 04/14/19 at 16:29; Status DC Acetaminophen (Tylenol) 500 mg PRN Q6HRS PRN PO MILD PAIN / TEMP; Start 04/13/19 at 16:45 Allopurinol (Zyloprim) 200 mg DAILY PO Last administered on 04/16/19 08:47; Start 04/14/19 at 09:00 Amlodipine Besylate (Norvasc) 10 mg DAILY PO Last administered on 04/16/19 08:46; Start 04/14/19 at 09:00 Apixaban (Eliquis) 5 mg BID PO Last administered on 04/16/19 08:46; Start 04/13/19 at 21:00 Clopidogrel Bisulfate (Plavix) 75 mg DAILY PO Last administered on 04/16/19 08:46; Start 04/14/19 at 09:00 EZETIMIBE (Zetia) 10 mg DAILY PO Last administered on 04/16/19 08:46; Start 04/14/19 at 09:00 Furosemide (Lasix) 40 mg DAILY PO ; Start 04/14/19 at 09:00; Stop 04/13/19 at 18:31; Status DC Gemfibrozil (Lopid) 600 mg DAILY PO Last administered on 04/16/19 08:46; Start 04/14/19 at 09:00 Acetaminophen/ Hydrocodone Bitart (Lortab 10/325) 1 tab PRN Q6HRS PRN PO PAIN MOD TO SEV Last administered on 04/16/19 04:33; Start 04/13/19 at 16:45 Metoprolol Succinate (Toprol Xl) 100 mg DAILY PO Last administered on 04/16/19 08:46; Start 04/14/19 at 09:00 Polyethylene Glycol (miraLAX PACKET) 17 gm DAILY PO Last administered on 04/16/19 08:46; Start 04/14/19 at 09:00 Tamsulosin HCl (Flomax) 0.4 mg HS PO Last administered on 04/15/19at 20:42; Start 04/13/19 at 21:00 Ascorbic Acid (Vitamin C) 1,000 mg DAILY PO Last administered on 04/16/19at 08:47; Start 04/14/19 at 09:00 Pantoprazole Sodium (Protonix) 40 mg DAILYAC PO Last administered on 04/16/19 07:30; Start 04/14/19 at 07:30 Multivitamins (Thera M Plus) 1 tab DAILY PO Last administered on 04/16/19 08:46; Start 04/14/19 at 09:00 Non-Formulary Medication (Ubidecarenone (Co Q-10)) 200 mg DAILY PO ; Start 04/14/19 at 09:00; Status UNV Multivitamins/ Minerals (I-Rehana) 1 tab DAILY PO Last administered on 04/16/19at 08:46; Start 04/14/19 at 09:00 Temazepam (Restoril) 7.5 mg PRN QHS PRN PO INSOMNIA; Start 04/13/19 at 16:45 Ondansetron HCl (Zofran) 4 mg PRN Q6HRS PRN IVP NAUSEA/VOMITING; Start 04/13/19 at 16:45 Albuterol/ Ipratropium (Duoneb) 3 ml RTQID NEB ; Start 04/13/19 at 20:00; Stop 04/14/19 at 21:07; Status DC Guaifenesin (Robitussin Dm) 10 ml PRN Q6HRS PRN PO COUGH; Start 04/13/19 at 16:45 Info (Anti-Coagulation Monitoring By Pharmacy) 1 each PRN DAILY PRN MC SEE COMMENTS; Start 04/13/19 at 17:00 Sodium Chloride 1,000 ml @ 100 mls/hr 1X ONCE IV Last administered on 04/13/19at 19:58; Start 04/13/19 at 18:30; Stop 04/14/19 at 04:29; Status DC Albuterol Sulfate (Ventolin Neb Soln) 2.5 mg PRN QID PRN NEB SHORTNESS OF BREATH; Start 04/14/19 at 21:15 Hydralazine HCl (Apresoline Inj) 10 mg PRN Q4HRS PRN IVP ELEVATED BP, SEE COMMENTS; Start 04/16/19 at 03:30 Active Scripts Active Acetaminophen 500 Mg Tablet 500 Mg PO PRN Q6HRS PRN 14 Days Eliquis (Apixaban) 5 Mg Tablet 5 Mg PO BID 30 Days Reported Miralax (Polyethylene Glycol 3350) 17 Gm Powd.pack 1 Pkt PO DAILY Hydrocodone-Apap 10-325 (Hydrocodone Bit/Acetaminophen) 1 Tab Tablet 1 Tab PO PRN Q6HRS PRN Preservision Areds Tablet (Vit A/Vit C/Vit E/Zinc/Copper) 1 Each Tablet 1 Each PO DAILY Allopurinol 300 Mg Tablet 300 Mg PO DAILY Furosemide 40 Mg Tablet 40 Mg PO DAILY Toprol Xl (Metoprolol Succinate) 50 Mg Tab.er.24h 100 Mg PO DAILY Flomax (Tamsulosin Hcl) 0.4 Mg Cap.er.24h 1 Cap PO HS Amlodipine Besylate 5 Mg Tablet 10 Mg PO DAILY Testosterone Cypionate 200 Mg/1 Ml Vial 1 Ml IM [id number] Clopidogrel (Clopidogrel Bisulfate) 75 Mg Tablet 1 Tab PO DAILY Vitamin C (Ascorbic Acid) 1,000 Mg Tablet 1,000 Mg PO DAILY Co Q-10 (Ubidecarenone) 200 Mg Capsule 200 Mg PO DAILY Krill Oil 500 Mg Capsule 500 Mg PO Multi-Vitamin Daily (Multivitamin) 1 Each Tablet 1 Each PO DAILY Gemfibrozil 600 Mg Tablet 1 Tab PO DAILY Zetia (Ezetimibe) 10 Mg Tablet 1 Tab PO DAILY Losartan Potassium 100 Mg Tablet 100 Mg PO DAILY Nexium Capsule (Esomeprazole Magnesium) 40 Mg Capsule. 1 Cap PO DAILY Vitals/I & O Vital Sign - Last 24 Hours 04/15/19 04/15/19 04/15/19 04/15/19 11:00 12:43 13:43 15:00 Temp 98.5 98.7 98.5 98.7 Pulse 79 79 Resp 18 18 B/P (MAP) 133/59 (83) 126/59 (81) Pulse Ox 93 93 93 93 O2 Delivery Room Air Room Air Room Air Room Air 04/15/19 04/15/19 04/15/19 04/15/19 17:03 18:03 19:25 19:40 Temp 97.7 97.7 Pulse 59 Resp 18 B/P (MAP) 148/66 (93) Pulse Ox 93 93 95 O2 Delivery Room Air Room Air Room Air Room Air 04/15/19 04/15/19 04/16/19 04/16/19 23:05 23:10 00:05 03:20 Temp 97.9 97.4 97.9 97.4 Pulse 76 77 Resp 20 18 18 18 B/P (MAP) 176/76 (109) 193/79 (117) Pulse Ox 97 96 O2 Delivery Room Air Room Air Room Air 04/16/19 04/16/19 04/16/19 04/16/19 04:33 05:33 07:00 08:00 Temp 98.5 98.5 Pulse 96 Resp 20 18 B/P (MAP) 130/65 (86) Pulse Ox 93 O2 Delivery Room Air Room Air Room Air Room Air 04/16/19 04/16/19 08:46 08:46 Pulse 96 96 B/P (MAP) 130/65 130/65 Intake and Output 04/15/19 04/15/19 04/16/19 15:00 23:00 07:00 Intake Total 480 ml 180 ml 640 ml Output Total 210 ml 550 ml 1075 ml Balance 270 ml -370 ml -435 ml SUHAS BASS MD Apr 16, 2019 10:39
[2019-04-16 11:04] VITALS: BP 127/62
--- NOTE | 2019-04-16 12:00 | NUR ---
SS following for discharge planning. SS reviewed pt chart. Pt is from home with spouse and is currently on room air. PT recommended home with assistance. Nurse Navigator, Martha, to meet with pt to discuss home healthcare and home health options. SS will continue to follow for discharge planning.
--- NOTE | 2019-04-16 13:08 | PDOC ---
GEM MULLEN ORACLE APPLICATIONS ANALYST 04/16/19 1308: CARDIO Progress Notes Date and Time Date of Service 04/16/19 Time of Evaluation 1150 Subjective Subjective: No Chest Pain, No Palpitations, Other (mild SOA today. LE edema persists) Vitals Vitals Vital Signs Date Time Temp Pulse Resp B/P (MAP) Pulse Ox O2 Delivery O2 Flow Rate FiO2 04/16/19 11:37 16 Room Air 04/16/19 11:04 98.1 83 127/62 (83) 92 98.1 Weight Weight [ ] Input and Output Intake and Output Intake and Output 04/16/19 07:00 Intake Total 1300 ml Output Total 1835 ml Balance -535 ml Intake Oral 1300 ml Output Urine Total 1835 ml Laboratory Labs Laboratory Tests Test 04/15/19 16:53 04/15/19 20:44 04/16/19 03:35 04/16/19 07:10 Glucose (Fingerstick) 115 mg/dL (70-99) 143 mg/dL (70-99) 125 mg/dL (70-99) Sodium Level 134 mmol/L (136-145) Potassium Level 4.7 mmol/L (3.5-5.1) Chloride Level 97 mmol/L (98-107) Carbon Dioxide Level 24 mmol/L (21-32) Anion Gap 13 (6-14) Blood Urea Nitrogen 64 mg/dL (8-26) Creatinine 3.7 mg/dL (0.7-1.3) Estimated GFR (Cockcroft-Gault) 16.0 Glucose Level 114 mg/dL (70-99) Calcium Level 9.7 mg/dL (8.5-10.1) Phosphorus Level 3.6 mg/dL (2.6-4.7) Albumin 3.6 g/dL (3.4-5.0) Test 04/16/19 11:40 Glucose (Fingerstick) 170 mg/dL (70-99) Physical Exam HEENT: Neck Supple W Full Motion Chest: Symmetric LUNGS: Other (bibasilar crackles ) Heart: S1S2, RRR, murmurs (2/6 systolic murmur ) Abdomen: Soft N/T Extremities: Other (2-3+ bilateral LE edema ) Neurology: alert, oriented, follow commands Assessment Assessment 1. Acute on chronic decompensated diastolic/systolic HF: LVEF 30%. diuretics on hold with DANNA/CKD. Fluid accumulation most probably r/o renal disease 2. DANNA on CKD; Cr initially better following IVFs, but is now worsening. 3. PAFIB; mainly SR. Eliquis for stroke prevention 4. HTN: Controlled 5. CAD: CABGx2 in 2010 6. Hyperlipidemia; statin 7. s/p LCEA 8. Diabetes, II Recommendations Hold Eliquis Continue BB for rate control Monitoring renal function May need to resume diuresis. D/w nephrology Probable RHC for further, accurate evaluation of fluid status Supportive care RONALDO DANIEL MD 04/16/19 2315: CARDIO Progress Notes Plan Plan Pt. seen and examined. 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 Due to cr fluctuation, intermittne dyspnea, will plan for RHC tomorrow afternoon to assess for volume status. Thanks GEM MULLEN APRN Apr 16, 2019 13:08 RONALDO DANIEL MD Apr 16, 2019 23:15
--- NOTE | 2019-04-16 14:01 | PDOC ---
SUBJECTIVE ROS C/O shortness of breath OBJECTIVE Vital Signs Vital Signs Date Time Temp Pulse Resp B/P (MAP) Pulse Ox O2 Delivery O2 Flow Rate FiO2 04/16/19 11:37 16 Room Air 04/16/19 11:04 98.1 83 127/62 (83) 92 98.1 I & 0 Intake and Output 04/16/19 07:00 Intake Total 1300 ml Output Total 1835 ml Balance -535 ml Intake Oral 1300 ml Output Urine Total 1835 ml PHYSICAL EXAM Physical Exam General appearance NAD HEENT: Right eye blind(Traumatic), OM moist Neck supple Cardiovascular: S1, S2, RRR Pulmonary: Clear to auscultation bilaterally, No accessory muscle use Abdomen: nontender, and nondistended. Extremities: Significant LE edema , has compression stockings NeUro - Grossly normal No Rangel, No SP/CVA tenderness Skin No Rash or any other lesion DIAGNOSIS/ASSESSMENT Assessment & Plan DANNA - Cardiorenal DANNA earlier this month with Cr improved to 3.0 Worsening renal function , UA Unremarkable,Renal US earlier this month unremarkable E-Lytes stable , if no improvement will need to be initiated on HD , Dw Pt and CKD stage 3 - Follows with Dr. 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 CAD: CABGx2 in 2010. Recent MPI Hypertension; controlled Diabetes, II PAD -left foot ulcer: s/p percutaneous revascularization 04/2018. Pulmonary HTN; PAP 50 mmHg Right renal simple cyst at the interpolar region laterally is present measuring 2.6 cm x 2.7 cm x 2.6 cm. COMMENT/RELEVANT DATA Meds Current Medications Medications (Trade) Dose Ordered Sig/Cha Start Time Stop Time Status Last Admin Dose Admin Acetaminophen (Tylenol) 500 mg PRN Q6HRS PRN 04/13/19 16:45 Acetaminophen/ Hydrocodone Bitart (Lortab 10/325) 1 tab PRN Q6HRS PRN 04/13/19 16:45 04/16/19 11:37 1 TAB Albuterol Sulfate (Ventolin Neb Soln) 2.5 mg PRN QID PRN 04/14/19 21:15 Albuterol/ Ipratropium (Duoneb) 3 ml RTQID 04/13/19 20:00 04/14/19 21:07 DC Allopurinol (Zyloprim) 200 mg DAILY 04/14/19 09:00 04/16/19 08:47 200 MG Amlodipine Besylate (Norvasc) 10 mg DAILY 04/14/19 09:00 04/16/19 08:46 10 MG Apixaban (Eliquis) 5 mg BID 04/13/19 21:00 04/16/19 08:46 5 MG Ascorbic Acid (Vitamin C) 1,000 mg DAILY 04/14/19 09:00 04/16/19 08:47 1,000 MG Clopidogrel Bisulfate (Plavix) 75 mg DAILY 04/14/19 09:00 04/16/19 08:46 75 MG EZETIMIBE (Zetia) 10 mg DAILY 04/14/19 09:00 04/16/19 08:46 10 MG Fentanyl Citrate (Fentanyl 2ml Vial) 50 mcg PRN Q1HR PRN 04/13/19 16:30 04/14/19 16:29 DC Furosemide (Lasix) 40 mg DAILY 04/14/19 09:00 04/13/19 18:31 DC Gemfibrozil (Lopid) 600 mg DAILY 04/14/19 09:00 04/16/19 08:46 600 MG Guaifenesin (Robitussin Dm) 10 ml PRN Q6HRS PRN 04/13/19 16:45 Hydralazine HCl (Apresoline Inj) 10 mg PRN Q4HRS PRN 04/16/19 03:30 Info (Anti-Coagulation Monitoring By Pharmacy) 1 each PRN DAILY PRN 04/13/19 17:00 04/16/19 11:08 1 EACH Metoprolol Succinate (Toprol Xl) 100 mg DAILY 04/14/19 09:00 04/16/19 08:46 100 MG Multivitamins (Thera M Plus) 1 tab DAILY 04/14/19 09:00 04/16/19 08:46 1 TAB Multivitamins/ Minerals (I-Rehana) 1 tab DAILY 04/14/19 09:00 04/16/19 08:46 1 TAB Nitroglycerin (Nitrostat) 0.4 mg PRN Q5MIN PRN 04/13/19 16:30 04/14/19 16:29 DC Non-Formulary Medication (Ubidecarenone (Co Q-10)) 200 mg DAILY 04/14/19 09:00 UNV Ondansetron HCl (Zofran) 4 mg PRN Q6HRS PRN 04/13/19 16:45 Pantoprazole Sodium (Protonix) 40 mg DAILYAC 04/14/19 07:30 04/16/19 07:30 40 MG Polyethylene Glycol (miraLAX PACKET) 17 gm DAILY 04/14/19 09:00 04/16/19 08:46 17 GM Sodium Chloride 1,000 ml @ 100 mls/hr 1X ONCE 04/13/19 18:30 04/14/19 04:29 DC 04/13/19 19:58 100 MLS/HR Tamsulosin HCl (Flomax) 0.4 mg HS 04/13/19 21:00 04/15/19 20:42 0.4 MG Temazepam (Restoril) 7.5 mg PRN QHS PRN 04/13/19 16:45 Lab Laboratory Tests Test 04/15/19 16:53 04/15/19 20:44 04/16/19 03:35 04/16/19 07:10 Glucose (Fingerstick) 115 mg/dL (70-99) 143 mg/dL (70-99) 125 mg/dL (70-99) Sodium Level 134 mmol/L (136-145) Potassium Level 4.7 mmol/L (3.5-5.1) Chloride Level 97 mmol/L (98-107) Carbon Dioxide Level 24 mmol/L (21-32) Anion Gap 13 (6-14) Blood Urea Nitrogen 64 mg/dL (8-26) Creatinine 3.7 mg/dL (0.7-1.3) Estimated GFR (Cockcroft-Gault) 16.0 Glucose Level 114 mg/dL (70-99) Calcium Level 9.7 mg/dL (8.5-10.1) Phosphorus Level 3.6 mg/dL (2.6-4.7) Albumin 3.6 g/dL (3.4-5.0) Test 04/16/19 11:40 Glucose (Fingerstick) 170 mg/dL (70-99) Results All relevant outside records, renal labs, imaging studies, telemetry/EKG's were reviewed. JOSÉ MIGUEL MUNOZ MD Apr 16, 2019 14:01
[2019-04-16 14:57] VITALS: BP 115/55
--- NOTE | 2019-04-16 18:30 | NUR ---
at approximately 1800 patient started bleeding from recent left carotid endarectomy. Pressure held for about 15 minutes, bleeding stopped, patient had big scab over incision site, a small piece had came off which caused the bleeding, gauze and tape applied, vitals stable. Will continue to monitor.
[2019-04-16 19:40] VITALS: BP 119/56
[2019-04-16] MEDS: TAMSULOSIN 0.4 MG CAP.ER.24H. PO SCH (21:01)
[2019-04-16 22:55] VITALS: BP 149/67
[2019-04-17] VITALS (16 sets, daily range): BP systolic 134–166; BP diastolic 61–77
[2019-04-17] MEDS ORDERED: SURGICEL HEMOSTAT 4X8 EACH. TP ONE (01:00)
[2019-04-17] MEDS: HYDROcodone/APAP 10/325 1 TAB TABLET PO PRN ×3 (01:03→23:42)
[2019-04-17 01:45] LABS: HEMOGLOBIN 9.2 g/dL (13.0-17.5)
[2019-04-17] MEDS ORDERED: THROMBIN TOPICAL 20,000 UNIT SPRAY.SYRN KIT TP ONE (03:00)
--- NOTE | 2019-04-17 03:21 | NUR ---
At 2245 patient started bleeding from previous left carotid endarectomy. Applied pressure for 20 minutes and continued to bleed and applied a Vpad and 15 minutes later patient bled through dressing continued to apply pressure for another 20 minutes and applied steri strips and another dressing and rechecked and continue to bleed through dressing. Contacted Dr. Tran and new order surgical hemostat 4*8. Placed surgical hemostat and patient continues to bleed through dressing 40 minutes after application. Contacted Dr. Tran and new orders for hemostat gel foam and continue to hold pressure and site stopped bleeding and at this time did not have to apply hemostat. Dr. Pickard consulted.
[2019-04-17] MEDS: PANTOPRAZOLE 40 MG TABLET.DR. PO SCH (07:30)
--- NOTE | 2019-04-17 08:23 | PDOC ---
PROGRESS NOTES Chief Complaint Chief Complaint A/P: Acute on chronic leg edema CHF exacerbation with elevated BNP and interstitial edema on CXR Recent CEA left done by DR Pickard 04/02- ff up vacs sx NOv 4 (already set up- healing very well per acct) Obesity BMI 32 DANNA on CKD - CREAT JUMPED TO 4, Hypertension Normocytic anemia Generalized weakness Paroxysmal A. 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 cr= 1.5 10/01 Diabetes type 2 Dysphagia pulmonary hypertension, mod-severe PLAN: CVC bed, 2 mN I and O Lasix on hold RENAL AND CARD CONSULTS PT.OT d/w in room 36 min pt exam, chart review, > 50% of time spent with exam, chart review, pt care coordination History of Present Illness History of Present Illness Mr Bardales is a 79-year-old M w/ PMHx hypertension, CHF, PVD, carotid disease s/p recent left CEA on 04/02, and chronic kidney disease, stage 4. He was admitted with increasing shortness of breath and lower extremity edema. He was felt to be in decompensated congestive cardiomyopathy. Seen by cardiology and nephrology in consultation. 04/16: He still has ROBERTS walking 20 feet in the hallway and orthopnea. CR 3.7 today (4.3 on admit). D/w nephrology to continue holding diuretics and cardiology that volume status with a RHC would be appropriate. He is amenable to the likely inevitability of renal replacement therapy given his Cr was 1.7 earlier this year, but has been progressively worsening since September. Has a small hematoma on his left neck, stable. Overnight was picking at his CEA site and it began oozing blood, soaked multiple pressures dressings and surgicell. Required topical thrombin for hemostasis. Cr 4.2, BUN 71 today. D/w nephrology will be NPO for possible tunneled HD cath tomorrow. Vitals Vitals Vital Signs Date Time Temp Pulse Resp B/P (MAP) Pulse Ox O2 Delivery O2 Flow Rate FiO2 04/17/19 07:00 97.8 77 18 138/62 (87) 92 Room Air 97.8 Physical Exam General: Alert, Oriented X3, Cooperative, No acute distress, Other (left neck incision clean and dry) Heart: Regular rate Lungs: Clear Abdomen: Normal bowel sounds, Soft, No tenderness, No masses Extremities: No clubbing, No cyanosis, Normal pulses, Other (2+ pitting edema) Skin: No rashes Labs LABS Laboratory Tests Test 04/16/19 11:40 04/16/19 16:36 04/16/19 20:41 04/17/19 01:40 Glucose (Fingerstick) 170 mg/dL (70-99) 132 mg/dL (70-99) 131 mg/dL (70-99) Hemoglobin 9.2 g/dL (13.0-17.5) Hematocrit 28.0 % (39.0-53.0) Mean Corpuscular Hemoglobin Concent 33 g/dL (31-37) Test 04/17/19 07:10 Glucose (Fingerstick) 110 mg/dL (70-99) Assessment and Plan Assessmemt and Plan Problems Medical Problems: (1) Acute on chronic renal failure Status: Acute (2) CHF exacerbation Status: Acute Comment Review of Relevant I have reviewed the following items viviane (where applicable) has been applied. Labs Laboratory Tests Test 04/15/19 11:27 04/15/19 16:53 04/15/19 20:44 04/16/19 03:35 Glucose (Fingerstick) 164 mg/dL (70-99) 115 mg/dL (70-99) 143 mg/dL (70-99) Sodium Level 134 mmol/L (136-145) Potassium Level 4.7 mmol/L (3.5-5.1) Chloride Level 97 mmol/L (98-107) Carbon Dioxide Level 24 mmol/L (21-32) Anion Gap 13 (6-14) Blood Urea Nitrogen 64 mg/dL (8-26) Creatinine 3.7 mg/dL (0.7-1.3) Estimated GFR (Cockcroft-Gault) 16.0 Glucose Level 114 mg/dL (70-99) Calcium Level 9.7 mg/dL (8.5-10.1) Phosphorus Level 3.6 mg/dL (2.6-4.7) Albumin 3.6 g/dL (3.4-5.0) Test 04/16/19 07:10 04/16/19 11:40 04/16/19 16:36 04/16/19 20:41 Glucose (Fingerstick) 125 mg/dL (70-99) 170 mg/dL (70-99) 132 mg/dL (70-99) 131 mg/dL (70-99) Test 04/17/19 01:40 04/17/19 07:10 Hemoglobin 9.2 g/dL (13.0-17.5) Hematocrit 28.0 % (39.0-53.0) Mean Corpuscular Hemoglobin Concent 33 g/dL (31-37) Glucose (Fingerstick) 110 mg/dL (70-99) Laboratory Tests Test 04/16/19 11:40 04/16/19 16:36 04/16/19 20:41 04/17/19 01:40 Glucose (Fingerstick) 170 mg/dL (70-99) 132 mg/dL (70-99) 131 mg/dL (70-99) Hemoglobin 9.2 g/dL (13.0-17.5) Hematocrit 28.0 % (39.0-53.0) Mean Corpuscular Hemoglobin Concent 33 g/dL (31-37) Test 04/17/19 07:10 Glucose (Fingerstick) 110 mg/dL (70-99) Medications Current Medications Ondansetron HCl (Zofran) 4 mg PRN Q8HRS PRN IV NAUSEA/VOMITING; Start 04/13/19 at 16:30; Stop 04/14/19 at 16:29; Status DC Fentanyl Citrate (Fentanyl 2ml Vial) 50 mcg PRN Q1HR PRN IV PAIN; Start at 16:30; Stop 04/14/19 at 16:29; Status DC Acetaminophen (Tylenol) 650 mg PRN Q4HRS PRN PO FEVER; Start 04/13/19 at 1 6:30; Stop 04/14/19 at 16:29; Status DC Nitroglycerin (Nitrostat) 0.4 mg PRN Q5MIN PRN SL CHEST PAIN; Start 04/13/19 at 16:30; Stop 04/14/19 at 16:29; Status DC Acetaminophen (Tylenol) 500 mg PRN Q6HRS PRN PO MILD PAIN / TEMP; Start 04/13/19 at 16:45 Allopurinol (Zyloprim) 200 mg DAILY PO Last administered on 04/16/19at 08:47; Start 04/14/19 at 09:00 Amlodipine Besylate (Norvasc) 10 mg DAILY PO Last administered on 04/16/19 08:46; Start 04/14/19 at 09:00 Apixaban (Eliquis) 5 mg BID PO Last administered on 04/16/19 08:46; Start 04/13/19 at 21:00; Stop 04/16/19 at 15:58; Status DC Clopidogrel Bisulfate (Plavix) 75 mg DAILY PO Last administered on 04/16/19 08:46; Start 04/14/19 at 09:00 EZETIMIBE (Zetia) 10 mg DAILY PO Last administered on 04/16/19 08:46; Start 04/14/19 at 09:00 Furosemide (Lasix) 40 mg DAILY PO ; Start 04/14/19 at 09:00; Stop 04/13/19 at 18:31; Status DC Gemfibrozil (Lopid) 600 mg DAILY PO Last administered on 04/16/19 08:46; Start 04/14/19 at 09:00 Acetaminophen/ Hydrocodone Bitart (Lortab 10/325) 1 tab PRN Q6HRS PRN PO PAIN MOD TO SEV Last administered on 04/17/19 01:03; Start 04/13/19 at 16:45 Metoprolol Succinate (Toprol Xl) 100 mg DAILY PO Last administered on 04/16/19 08:46; Start 04/14/19 at 09:00 Polyethylene Glycol (miraLAX PACKET) 17 gm DAILY PO Last administered on 04/16/19 08:46; Start 04/14/19 at 09:00 Tamsulosin HCl (Flomax) 0.4 mg HS PO Last administered on 04/16/19 21:01; Start 04/13/19 at 21:00 Ascorbic Acid (Vitamin C) 1,000 mg DAILY PO Last administered on 04/16/19 08:47; Start 04/14/19 at 09:00 Pantoprazole Sodium (Protonix) 40 mg DAILYAC PO Last administered on 04/16/19 07:30; Start 04/14/19 at 07:30 Multivitamins (Thera M Plus) 1 tab DAILY PO Last administered on 04/16/19 08:46; Start 04/14/19 at 09:00 Non-Formulary Medication (Ubidecarenone (Co Q-10)) 200 mg DAILY PO ; Start 04/14/19 at 09:00; Status UNV Multivitamins/ Minerals (I-Rehana) 1 tab DAILY PO Last administered on 04/16/19at 08:46; Start 04/14/19 at 09:00 Temazepam (Restoril) 7.5 mg PRN QHS PRN PO INSOMNIA; Start 04/13/19 at 16:45 Ondansetron HCl (Zofran) 4 mg PRN Q6HRS PRN IVP NAUSEA/VOMITING; Start 04/13/19 at 16:45 Albuterol/ Ipratropium (Duoneb) 3 ml RTQID NEB ; Start 04/13/19 at 20:00; Stop 04/14/19 at 21:07; Status DC Guaifenesin (Robitussin Dm) 10 ml PRN Q6HRS PRN PO COUGH; Start 04/13/19 at 16:45 Info (Anti-Coagulation Monitoring By Pharmacy) 1 each PRN DAILY PRN MC SEE COMMENTS Last administered on 04/16/19at 11:08; Start 04/13/19 at 17:00 Sodium Chloride 1,000 ml @ 100 mls/hr 1X ONCE IV Last administered on 04/13/19at 19:58; Start 04/13/19 at 18:30; Stop 04/14/19 at 04:29; Status DC Albuterol Sulfate (Ventolin Neb Soln) 2.5 mg PRN QID PRN NEB SHORTNESS OF BREATH; Start 04/14/19 at 21:15 Hydralazine HCl (Apresoline Inj) 10 mg PRN Q4HRS PRN IVP ELEVATED BP, SEE COMMENTS; Start 04/16/19 at 03:30 Cellulose (Surgicel Hemostat 4x8) 1 each 1X ONCE TP Last administered on 04/17/19at 00:57; Start 04/17/19 at 01:00; Stop 04/17/19 at 01:01; Status DC Thrombin 20,000 unit 1X ONCE TP ; Start 04/17/19 at 03:00; Stop 04/17/19 at 03:01; Status DC Active Scripts Active Acetaminophen 500 Mg Tablet 500 Mg PO PRN Q6HRS PRN 14 Days Eliquis (Apixaban) 5 Mg Tablet 5 Mg PO BID 30 Days Reported Miralax (Polyethylene Glycol 3350) 17 Gm Powd.pack 1 Pkt PO DAILY Hydrocodone-Apap 10-325 (Hydrocodone Bit/Acetaminophen) 1 Tab Tablet 1 Tab PO PRN Q6HRS PRN Preservision Areds Tablet (Vit A/Vit C/Vit E/Zinc/Copper) 1 Each Tablet 1 Each PO DAILY Allopurinol 300 Mg Tablet 300 Mg PO DAILY Furosemide 40 Mg Tablet 40 Mg PO DAILY Toprol Xl (Metoprolol Succinate) 50 Mg Tab.er.24h 100 Mg PO DAILY Flomax (Tamsulosin Hcl) 0.4 Mg Cap.er.24h 1 Cap PO HS Amlodipine Besylate 5 Mg Tablet 10 Mg PO DAILY Testosterone Cypionate 200 Mg/1 Ml Vial 1 Ml IM [id number] Clopidogrel (Clopidogrel Bisulfate) 75 Mg Tablet 1 Tab PO DAILY Vitamin C (Ascorbic Acid) 1,000 Mg Tablet 1,000 Mg PO DAILY Co Q-10 (Ubidecarenone) 200 Mg Capsule 200 Mg PO DAILY Krill Oil 500 Mg Capsule 500 Mg PO Multi-Vitamin Daily (Multivitamin) 1 Each Tablet 1 Each PO DAILY Gemfibrozil 600 Mg Tablet 1 Tab PO DAILY Zetia (Ezetimibe) 10 Mg Tablet 1 Tab PO DAILY Losartan Potassium 100 Mg Tablet 100 Mg PO DAILY Nexium Capsule (Esomeprazole Magnesium) 40 Mg Capsule. 1 Cap PO DAILY Vitals/I & O Vital Sign - Last 24 Hours 04/16/19 04/16/19 04/16/19 04/16/19 08:46 08:46 11:04 11:37 Temp 98.1 98.1 Pulse 96 96 83 Resp 18 16 B/P (MAP) 130/65 130/65 127/62 (83) Pulse Ox 92 O2 Delivery Room Air Room Air 04/16/19 04/16/19 04/16/19 04/16/19 12:37 14:57 18:26 19:26 Temp 98.5 98.5 Pulse 69 Resp 16 18 16 B/P (MAP) 115/55 (75) Pulse Ox 90 O2 Delivery Room Air Room Air Room Air Room Air 04/16/19 04/16/19 04/16/19 04/17/19 19:40 20:00 22:55 01:03 Temp 97.2 97.7 97.2 97.7 Pulse 73 74 Resp 18 20 B/P (MAP) 119/56 (77) 149/67 (94) Pulse Ox 96 96 O2 Delivery Room Air Room Air Room Air Room Air 04/17/19 04/17/19 04/17/19 02:03 03:05 07:00 Temp 97.9 97.8 97.9 97.8 Pulse 76 77 Resp 20 18 B/P (MAP) 136/61 (86) 138/62 (87) Pulse Ox 94 92 O2 Delivery Room Air Room Air Room Air Intake and Output 04/16/19 04/16/19 04/17/19 15:00 23:00 07:00 Intake Total 480 ml 240 ml 500 ml Output Total 100 ml 400 ml 1100 ml Balance 380 ml -160 ml -600 ml SUHAS BASS MD Apr 17, 2019 08:23
[2019-04-17] MEDS: MULTIVITAMIN I-VITE TABLET. PO SCH (09:00)
[2019-04-17] MEDS: POLYETHYLENE GLYCOL 3350 17 GM PACKET. PO SCH (09:00)
[2019-04-17 09:07] LABS: BASO # 0.1 x10^3/uL (0.0-0.2); BASO % 1 % (0-3); EOS # 0.4 x10^3/uL (0.0-0.7); EOS % 5 % (0-3); HEMATOCRIT 29.4 % (39.0-53.0); HEMOGLOBIN 9.8 g/dL (13.0-17.5); LYMPH # 1.2 x10^3/uL (1.0-4.8); LYMPH % 16 % (24-48); MEAN CORPUSCULAR HEMOGLOBIN 31 pg (25-35); MEAN CORPUSCULAR HGB CONC 33 g/dL (31-37); MEAN CORPUSCULAR VOLUME 94 fL (79-100); MONO # 0.8 x10^3/uL (0.0-1.1); MONO % 10 % (0-9); NEUT % 68 % (31-73); PLATELET COUNT 280 x10^3/uL (140-400); RED BLOOD COUNT 3.14 x10^6/uL (4.30-5.70); RED CELL DISTRIBUTION WIDTH 16.6 % (11.5-14.5); WHITE BLOOD COUNT 7.4 x10^3/uL (4.0-11.0)
--- NOTE | 2019-04-17 09:31 | PDOC2 ---
CONSULT Date of Consult Date of Consult DATE: 04/17/19 TIME: 09:22 Reason for Consult Reason for Consult: Left neck incisional bleeding Referring Physician Referring Physician: Dr. Rodrigues Identification/Chief Complaint Chief Complaint Worsening renal function and severe lower extremity swelling admitted for diuresis Source Source: Chart review, Patient History of Present Illness Reason for Visit: Is a 79-year-old male who was admitted with worsening renal function with lower extremity swelling and need for diuresis. He was noted last night to have some bleeding from his left neck incision. Patient had a left carotid endarterectomy on 04/02/[address] Pickard. Past Medical History Cardiovascular: CAD, HTN, Hyperlipidemia, Valve insufficiency, Other GI: Constipation, GERD Hepatobiliary: No pertinent hx Psych: No pertinent hx Musculoskeletal: Osteoarthritis Rheumatologic: Gout Infectious disease: No pertinent hx Renal/: Chronic renal insuff, Benign prostatic enlarg. Past Surgical History Past Surgical History: Arthroscopy, CABG, Total hip replacement, Other Family History Family History: Heart Disease Social History No ALCOHOL: none Drugs: None Lives: with Family Current Problem List Problem List Problems Medical Problems: (1) Acute on chronic renal failure Status: Acute (2) CHF exacerbation Status: Acute Current Medications Current Medications Current Medications Ondansetron HCl (Zofran) 4 mg PRN Q8HRS PRN IV NAUSEA/VOMITING; Start 04/13/19 at 16:30; Stop 04/14/19 at 16:29; Status DC Fentanyl Citrate (Fentanyl 2ml Vial) 50 mcg PRN Q1HR PRN IV PAIN; Start 04/13/19 at 16:30; Stop 04/14/19 at 16:29; Status DC Acetaminophen (Tylenol) 650 mg PRN Q4HRS PRN PO FEVER; Start 04/13/19 at 16:30; Stop 04/14/19 at 16:29; Status DC Nitroglycerin (Nitrostat) 0.4 mg PRN Q5MIN PRN SL CHEST PAIN; Start 04/13/19 at 16:30; Stop 04/14/19 at 16:29; Status DC Acetaminophen (Tylenol) 500 mg PRN Q6HRS PRN PO MILD PAIN / TEMP; Start 04/13/19 at 16:45 Allopurinol (Zyloprim) 200 mg DAILY PO Last administered on 04/16/19at 08:47; Start 04/14/19 at 09:00 Amlodipine Besylate (Norvasc) 10 mg DAILY PO Last administered on 04/16/19 08:46; Start 04/14/19 at 09:00 Apixaban (Eliquis) 5 mg BID PO Last administered on 04/16/19 08:46; Start 04/13/19 at 21:00; Stop 04/16/19 at 15:58; Status DC Clopidogrel Bisulfate (Plavix) 75 mg DAILY PO Last administered on 04/16/19 08:46; Start 04/14/19 at 09:00 EZETIMIBE (Zetia) 10 mg DAILY PO Last administered on 04/16/19 08:46; Start 04/14/19 at 09:00 Furosemide (Lasix) 40 mg DAILY PO ; Start 04/14/19 at 09:00; Stop 04/13/19 at 18:31; Status DC Gemfibrozil (Lopid) 600 mg DAILY PO Last administered on 04/16/19 08:46; Start 04/14/19 at 09:00 Acetaminophen/ Hydrocodone Bitart (Lortab 10/325) 1 tab PRN Q6HRS PRN PO PAIN MOD TO SEV Last administered on 04/17/19 01:03; Start 04/13/19 at 16:45 Metoprolol Succinate (Toprol Xl) 100 mg DAILY PO Last administered on 04/16/19 08:46; Start 04/14/19 at 09:00 Polyethylene Glycol (miraLAX PACKET) 17 gm DAILY PO Last administered on 04/16/19 08:46; Start 04/14/19 at 09:00 Tamsulosin HCl (Flomax) 0.4 mg HS PO Last administered on 04/16/19 21:01; Start 04/13/19 at 21:00 Ascorbic Acid (Vitamin C) 1,000 mg DAILY PO Last administered on 04/16/19 08:47; Start 04/14/19 at 09:00 Pantoprazole Sodium (Protonix) 40 mg DAILYAC PO Last administered on 04/16/19 07:30; Start 04/14/19 at 07:30 Multivitamins (Thera M Plus) 1 tab DAILY PO Last administered on 04/16/19 08:46; Start 04/14/19 at 09:00 Non-Formulary Medication (Ubidecarenone (Co Q-10)) 200 mg DAILY PO ; Start 04/14/19 at 09:00; Status UNV Multivitamins/ Minerals (I-Rehana) 1 tab DAILY PO Last administered on 04/16/19at 08:46; Start 04/14/19 at 09:00 Temazepam (Restoril) 7.5 mg PRN QHS PRN PO INSOMNIA; Start 04/13/19 at 16:45 Ondansetron HCl (Zofran) 4 mg PRN Q6HRS PRN IVP NAUSEA/VOMITING; Start 04/13/19 at 16:45 Albuterol/ Ipratropium (Duoneb) 3 ml RTQID NEB ; Start 04/13/19 at 20:00; Stop 04/14/19 at 21:07; Status DC Guaifenesin (Robitussin Dm) 10 ml PRN Q6HRS PRN PO COUGH; Start 04/13/19 at 16:45 Info (Anti-Coagulation Monitoring By Pharmacy) 1 each PRN DAILY PRN MC SEE COMMENTS Last administered on 04/16/19at 11:08; Start 04/13/19 at 17:00 Sodium Chloride 1,000 ml @ 100 mls/hr 1X ONCE IV Last administered on 04/13at 19:58; Start 04/13/19 at 18:30; Stop 04/14/19 at 04:29; Status DC Albuterol Sulfate (Ventolin Neb Soln) 2.5 mg PRN QID PRN NEB SHORTNESS OF BREATH; Start 04/14/19 at 21:15 Hydralazine HCl (Apresoline Inj) 10 mg PRN Q4HRS PRN IVP ELEVATED BP, SEE COMMENTS; Start 04/16/19 at 03:30 Cellulose (Surgicel Hemostat 4x8) 1 each 1X ONCE TP Last administered on 04/17/19at 00:57; Start 04/17/19 at 01:00; Stop 04/17/19 at 01:01; Status DC Thrombin 20,000 unit 1X ONCE TP ; Start 04/17/19 at 03:00; Stop 04/17/19 at 03:01; Status DC Active Scripts Active Acetaminophen 500 Mg Tablet 500 Mg PO PRN Q6HRS PRN 14 Days Eliquis (Apixaban) 5 Mg Tablet 5 Mg PO BID 30 Days Reported Miralax (Polyethylene Glycol 3350) 17 Gm Powd.pack 1 Pkt PO DAILY Hydrocodone-Apap 10-325 (Hydrocodone Bit/Acetaminophen) 1 Tab Tablet 1 Tab PO PRN Q6HRS PRN Preservision Areds Tablet (Vit A/Vit C/Vit E/Zinc/Copper) 1 Each Tablet 1 Each PO DAILY Allopurinol 300 Mg Tablet 300 Mg PO DAILY Furosemide 40 Mg Tablet 40 Mg PO DAILY Toprol Xl (Metoprolol Succinate) 50 Mg Tab.er.24h 100 Mg PO DAILY Flomax (Tamsulosin Hcl) 0.4 Mg Cap.er.24h 1 Cap PO HS Amlodipine Besylate 5 Mg Tablet 10 Mg PO DAILY Testosterone Cypionate 200 Mg/1 Ml Vial 1 Ml IM [id number] Clopidogrel (Clopidogrel Bisulfate) 75 Mg Tablet 1 Tab PO DAILY Vitamin C (Ascorbic Acid) 1,000 Mg Tablet 1,000 Mg PO DAILY Co Q-10 (Ubidecarenone) 200 Mg Capsule 200 Mg PO DAILY Krill Oil 500 Mg Capsule 500 Mg PO Multi-Vitamin Daily (Multivitamin) 1 Each Tablet 1 Each PO DAILY Gemfibrozil 600 Mg Tablet 1 Tab PO DAILY Zetia (Ezetimibe) 10 Mg Tablet 1 Tab PO DAILY Losartan Potassium 100 Mg Tablet 100 Mg PO DAILY Nexium Capsule (Esomeprazole Magnesium) 40 Mg Capsule. 1 Cap PO DAILY Allergies Allergies: Coded Allergies: Penicillins (Verified Allergy, Intermediate, rash, 03/28/19) amiodarone (Verified Allergy, Intermediate, 04/16/19) tramadol (Verified Adverse Reaction, Intermediate, "depressed", 03/28/19) ROS Review of System Constitutional: No fever, chills, fatigue or weight loss. Respiratory: Positive for cough, no sputum production. Positive for SOA. Cardiovascular: No chest pain, palpitations. Positive for peripheral edema. Gastrointestinal: No abdominal pain, nausea, constipation or diarrhea. Integumentary/breast: As per HPI Musculoskeletal: No arthralgia or myalgias. Neurological: No gross deficits All other reviews systems negative except history of present illness. Physical Exam Physical Exam Gen.: Alert and oriented 3. Cardiac: Heart rate regular. Lungs: Nonlabored respirations. Abdomen: Soft, obese. Extremities: Curriculum Counselor equal. Skin: Right neck incision dry and intact, small amount of Surgicel along the medial portion of incision. No hematoma or swelling noted. Some mild ecchymosis. Neurological: Motor and sensation intact. Speech clear. Vitals VITALS Vital Signs Date Time Temp Pulse Resp B/P (MAP) Pulse Ox O2 Delivery O2 Flow Rate FiO2 04/17/19 09:10 96 Room Air 04/17/19 07:00 97.8 77 18 138/62 (87) 97.8 Labs Labs Laboratory Tests Test 04/15/19 11:27 04/15/19 16:53 04/15/19 20:44 04/16/19 03:35 Glucose (Fingerstick) 164 mg/dL (70-99) 115 mg/dL (70-99) 143 mg/dL (70-99) Sodium Level 134 mmol/L (136-145) Potassium Level 4.7 mmol/L (3.5-5.1) Chloride Level 97 mmol/L (98-107) Carbon Dioxide Level 24 mmol/L (21-32) Anion Gap 13 (6-14) Blood Urea Nitrogen 64 mg/dL (8-26) Creatinine 3.7 mg/dL (0.7-1.3) Estimated GFR (Cockcroft-Gault) 16.0 Glucose Level 114 mg/dL (70-99) Calcium Level 9.7 mg/dL (8.5-10.1) Phosphorus Level 3.6 mg/dL (2.6-4.7) Albumin 3.6 g/dL (3.4-5.0) Test 04/16/19 07:10 04/16/19 11:40 04/16/19 16:36 04/16/19 20:41 Glucose (Fingerstick) 125 mg/dL (70-99) 170 mg/dL (70-99) 132 mg/dL (70-99) 131 mg/dL (70-99) Test 04/17/19 01:40 04/17/19 07:10 04/17/19 08:55 Hemoglobin 9.2 g/dL (13.0-17.5) 9.8 g/dL (13.0-17.5) Hematocrit 28.0 % (39.0-53.0) 29.4 % (39.0-53.0) Mean Corpuscular Hemoglobin Concent 33 g/dL (31-37) 33 g/dL (31-37) Glucose (Fingerstick) 110 mg/dL (70-99) White Blood Count 7.4 x10^3/uL (4.0-11.0) Red Blood Count 3.14 x10^6/uL (4.30-5.70) Mean Corpuscular Volume 94 fL (79-100) Mean Corpuscular Hemoglobin 31 pg (25-35) Red Cell Distribution Width 16.6 % (11.5-14.5) Platelet Count 280 x10^3/uL (140-400) Neutrophils (%) (Auto) 68 % (31-73) Lymphocytes (%) (Auto) 16 % (24-48) Monocytes (%) (Auto) 10 % (0-9) Eosinophils (%) (Auto) 5 % (0-3) Basophils (%) (Auto) 1 % (0-3) Neutrophils # (Auto) 5.0 x10^3/uL (1.8-7.7) Lymphocytes # (Auto) 1.2 x10^3/uL (1.0-4.8) Monocytes # (Auto) 0.8 x10^3/uL (0.0-1.1) Eosinophils # (Auto) 0.4 x10^3/uL (0.0-0.7) Basophils # (Auto) 0.1 x10^3/uL (0.0-0.2) Laboratory Tests Test 04/16/19 11:40 04/16/19 16:36 04/16/19 20:41 04/17/19 01:40 Glucose (Fingerstick) 170 mg/dL (70-99) 132 mg/dL (70-99) 131 mg/dL (70-99) Hemoglobin 9.2 g/dL (13.0-17.5) Hematocrit 28.0 % (39.0-53.0) Mean Corpuscular Hemoglobin Concent 33 g/dL (31-37) Test 04/17/19 07:10 04/17/19 08:55 Glucose (Fingerstick) 110 mg/dL (70-99) White Blood Count 7.4 x10^3/uL (4.0-11.0) Red Blood Count 3.14 x10^6/uL (4.30-5.70) Hemoglobin 9.8 g/dL (13.0-17.5) Hematocrit 29.4 % (39.0-53.0) Mean Corpuscular Volume 94 fL (79-100) Mean Corpuscular Hemoglobin 31 pg (25-35) Mean Corpuscular Hemoglobin Concent 33 g/dL (31-37) Red Cell Distribution Width 16.6 % (11.5-14.5) Platelet Count 280 x10^3/uL (140-400) Neutrophils (%) (Auto) 68 % (31-73) Lymphocytes (%) (Auto) 16 % (24-48) Monocytes (%) (Auto) 10 % (0-9) Eosinophils (%) (Auto) 5 % (0-3) Basophils (%) (Auto) 1 % (0-3) Neutrophils # (Auto) 5.0 x10^3/uL (1.8-7.7) Lymphocytes # (Auto) 1.2 x10^3/uL (1.0-4.8) Monocytes # (Auto) 0.8 x10^3/uL (0.0-1.1) Eosinophils # (Auto) 0.4 x10^3/uL (0.0-0.7) Basophils # (Auto) 0.1 x10^3/uL (0.0-0.2) Assessment/Plan Assessment/Plan 89-year-old male admitted with worsening renal function in need of diuresis. Patient was noted to have some left neck incisional bleeding last p.m. that lasted for approximately 3 hours with multiple dressing changes and pressure application. No incisional bleeding noted this morning, no hematoma or swelling noted. Recommend keep suricel in place until tomorrow and monitor. Possible cardiac catheter today. It is safe to continue antiplatelet therapy and can resume anticoagulant when medically stable. Discussed plan of care with Dr. Perez we will follow up up with patient tomorrow. ANDREW RIVERO APRN Apr 17, 2019 09:31
[2019-04-17 09:41] LABS: ALBUMIN 3.4 g/dL (3.4-5.0); CALCIUM 9.8 mg/dL (8.5-10.1); CREATININE 4.2 mg/dL (0.7-1.3); GFR 13.8; PHOSPHORUS 4.4 mg/dL (2.6-4.7); POTASSIUM 4.7 mmol/L (3.5-5.1)
--- NOTE | 2019-04-17 10:18 | PDOC ---
SUBJECTIVE ROS Pt reports he had bleeding from Lt carotid incision site last night for approx 4 hrs States breathing is better OBJECTIVE Vital Signs Vital Signs Date Time Temp Pulse Resp B/P (MAP) Pulse Ox O2 Delivery O2 Flow Rate FiO2 04/17/19 09:10 96 Room Air 04/17/19 07:00 97.8 77 18 138/62 (87) 97.8 I & 0 Intake and Output 04/17/19 07:00 Intake Total 1220 ml Output Total 1600 ml Balance -380 ml Intake Oral 1220 ml Output Urine Total 1600 ml # Voids 5 # Bowel Movements 1 PHYSICAL EXAM Physical Exam General appearance NAD HEENT: Right eye blind(Traumatic), OM moist Neck supple Cardiovascular: S1, S2, RRR Pulmonary: Clear to auscultation bilaterally, No accessory muscle use Abdomen: nontender, and nondistended. Extremities: Significant LE edema , has compression stockings NeUro - Grossly normal No Rangel, No SP/CVA tenderness Skin No Rash or any other lesion DIAGNOSIS/ASSESSMENT Assessment & Plan DANNA - Cardiorenal DANNA earlier this month with Cr improved to 3.0 Worsening renal function , UA Unremarkable,Renal US earlier this month unremarkable E-Lytes stable , if no improvement will need to be initiated on HD , Dw Pt and NPO after midnight, Tunneled Dialysis catheter placement tomorrow after reviewing the labs in am CKD stage 3 - Follows with Dr. 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 CAD: CABGx2 in 2010. Recent MPI Hypertension; controlled Diabetes, II PAD -left foot ulcer: s/p percutaneous revascularization 04/2018. Pulmonary HTN; PAP 50 mmHg Right renal simple cyst at the interpolar region laterally is present measuring 2.6 cm x 2.7 cm x 2.6 cm Discussed about Dialysis at great length with pt and COMMENT/RELEVANT DATA Meds Current Medications Medications (Trade) Dose Ordered Sig/Cha Start Time Stop Time Status Last Admin Dose Admin Acetaminophen (Tylenol) 500 mg PRN Q6HRS PRN 04/13/19 16:45 Acetaminophen/ Hydrocodone Bitart (Lortab 10325) 1 tab PRN Q6HRS PRN 04/13/19 16:45 04/17/19 01:03 1 TAB Albuterol Sulfate (Ventolin Neb Soln) 2.5 mg PRN QID PRN 04/14/19 21:15 Albuterol/ Ipratropium (Duoneb) 3 ml RTQID 04/13/19 20:00 04/14/19 21:07 DC Allopurinol (Zyloprim) 200 mg DAILY 04/14/19 09:00 04/16/19 08:47 200 MG Amlodipine Besylate (Norvasc) 10 mg DAILY 04/14/19 09:00 04/16/19 08:46 10 MG Apixaban (Eliquis) 5 mg BID 04/13/19 21:00 04/16/19 15:58 DC 04/16/19 08:46 5 MG Ascorbic Acid (Vitamin C) 1,000 mg DAILY 04/14/19 09:00 04/16/19 08:47 1,000 MG Cellulose (Surgicel Hemostat 4x8) 1 each 1X ONCE 04/17/19 01:00 04/17/19 01:01 DC 04/17/19 00:57 1 EACH Clopidogrel Bisulfate (Plavix) 75 mg DAILY 04/14/19 09:00 04/16/19 08:46 75 MG EZETIMIBE (Zetia) 10 mg DAILY 04/14/19 09:00 04/16/19 08:46 10 MG Fentanyl Citrate (Fentanyl 2ml Vial) 50 mcg PRN Q1HR PRN 04/13/19 16:30 04/14/19 16:29 DC Furosemide (Lasix) 40 mg DAILY 04/14/19 09:00 04/13/19 18:31 DC Gemfibrozil (Lopid) 600 mg DAILY 04/14/19 09:00 04/16/19 08:46 600 MG Guaifenesin (Robitussin Dm) 10 ml PRN Q6HRS PRN 04/13/19 16:45 Hydralazine HCl (Apresoline Inj) 10 mg PRN Q4HRS PRN 04/16/19 03:30 Info (Anti-Coagulation Monitoring By Pharmacy) 1 each PRN DAILY PRN 04/13/19 17:00 04/16/19 11:08 1 EACH Metoprolol Succinate (Toprol Xl) 100 mg DAILY 04/14/19 09:00 04/16/19 08:46 100 MG Multivitamins (Thera M Plus) 1 tab DAILY 04/14/19 09:00 04/16/19 08:46 1 TAB Multivitamins/ Minerals (I-Rehana) 1 tab DAILY 04/14/19 09:00 04/16/19 08:46 1 TAB Nitroglycerin (Nitrostat) 0.4 mg PRN Q5MIN PRN 04/13/19 16:30 04/14/19 16:29 DC Non-Formulary Medication (Ubidecarenone (Co Q-10)) 200 mg DAILY 04/14/19 09:00 UNV Ondansetron HCl (Zofran) 4 mg PRN Q6HRS PRN 04/13/19 16:45 Pantoprazole Sodium (Protonix) 40 mg DAILYAC 04/14/19 07:30 04/16/19 07:30 40 MG Polyethylene Glycol (miraLAX PACKET) 17 gm DAILY 04/14/19 09:00 04/16/19 08:46 17 GM Sodium Chloride 1,000 ml @ 100 mls/hr 1X ONCE 04/13/19 18:30 04/14/19 04:29 DC 04/13/19 19:58 100 MLS/HR Tamsulosin HCl (Flomax) 0.4 mg HS 04/13/19 21:00 04/16/19 21:01 0.4 MG Temazepam (Restoril) 7.5 mg PRN QHS PRN 04/13/19 16:45 Thrombin 20,000 unit 1X ONCE 04/17/19 03:00 04/17/19 03:01 DC Lab Laboratory Tests Test 04/16/19 11:40 04/16/19 16:36 04/16/19 20:41 04/17/19 01:40 Glucose (Fingerstick) 170 mg/dL (70-99) 132 mg/dL (70-99) 131 mg/dL (70-99) Hemoglobin 9.2 g/dL (13.0-17.5) Hematocrit 28.0 % (39.0-53.0) Mean Corpuscular Hemoglobin Concent 33 g/dL (31-37) Test 04/17/19 07:10 04/17/19 08:55 Glucose (Fingerstick) 110 mg/dL (70-99) White Blood Count 7.4 x10^3/uL (4.0-11.0) Red Blood Count 3.14 x10^6/uL (4.30-5.70) Hemoglobin 9.8 g/dL (13.0-17.5) Hematocrit 29.4 % (39.0-53.0) Mean Corpuscular Volume 94 fL (79-100) Mean Corpuscular Hemoglobin 31 pg (25-35) Mean Corpuscular Hemoglobin Concent 33 g/dL (31-37) Red Cell Distribution Width 16.6 % (11.5-14.5) Platelet Count 280 x10^3/uL (140-400) Neutrophils (%) (Auto) 68 % (31-73) Lymphocytes (%) (Auto) 16 % (24-48) Monocytes (%) (Auto) 10 % (0-9) Eosinophils (%) (Auto) 5 % (0-3) Basophils (%) (Auto) 1 % (0-3) Neutrophils # (Auto) 5.0 x10^3/uL (1.8-7.7) Lymphocytes # (Auto) 1.2 x10^3/uL (1.0-4.8) Monocytes # (Auto) 0.8 x10^3/uL (0.0-1.1) Eosinophils # (Auto) 0.4 x10^3/uL (0.0-0.7) Basophils # (Auto) 0.1 x10^3/uL (0.0-0.2) Sodium Level 134 mmol/L (136-145) Potassium Level 4.7 mmol/L (3.5-5.1) Chloride Level 98 mmol/L (98-107) Carbon Dioxide Level 24 mmol/L (21-32) Anion Gap 12 (6-14) Blood Urea Nitrogen 71 mg/dL (8-26) Creatinine 4.2 mg/dL (0.7-1.3) Estimated GFR (Cockcroft-Gault) 13.8 Glucose Level 113 mg/dL (70-99) Calcium Level 9.8 mg/dL (8.5-10.1) Phosphorus Level 4.4 mg/dL (2.6-4.7) Albumin 3.4 g/dL (3.4-5.0) Results All relevant outside records, renal labs, imaging studies, telemetry/EKG's were reviewed. JOSÉ MIGUEL MUNOZ MD Apr 17, 2019 10:18
--- NOTE | 2019-04-17 10:53 | NUR ---
SS following up with discharge planning. Pt declined need for home healthcare at this time. Wishes to return to home independent. SS will continue to follow for discharge planning.
[2019-04-17] MEDS ORDERED: LIDOCAINE 1% Multi-Dose 20 ML VIAL. ONE (12:56)
[2019-04-17] MEDS ORDERED: LIDOCAINE 1% Multi-Dose 20 ML VIAL. INJ ONE (13:00)
[2019-04-17] MEDS ORDERED: MIDAZOLAM HCL/PF 2 MG/2 ML VIAL. IV ONE (13:00)
[2019-04-17] MEDS ORDERED: fentaNYL PF VIAL 100 MCG/2 ML VIAL IV ONE (13:00)
[2019-04-17] MEDS ORDERED: MIDAZOLAM HCL/PF 2 MG/2 ML VIAL. ONE (13:03)
[2019-04-17] MEDS ORDERED: fentaNYL PF VIAL 100 MCG/2 ML VIAL ONE (13:03)
--- NOTE | 2019-04-17 14:18 | CARD ---
MR#: [id number] Date of Study: 04/17/2019 Ordering Physician: GEM MULLEN, Referring Physician: GEM MULLEN, Tech: RT Lindsay (R) KIMBERLY APPROVED REPORT Technologist: RT Lindsay (R) KIMBERLY Nurse: Margaret Garcia RN Procedure(s) performed: FLUORO TIME: 1.5 MIN DOSE: 3 Gycm2 MOD SED: 28 MIN RHC HISTORY The patient is a 79 year-old male with a history of : renal failure without dialysis. INDICATION The indication(s) include : dyspnea. PROCEDURE NARRATIVE After appropriate informed consent the patient was brought to the catheterization laboratory. The andres ateral groins were prepped and draped in usual sterile fashion. Under 2% lidocaine local anesthesia a 5 [place] sheath was placed in the right common femoral vein. Ne xt, a 5 [place] PA catheter was advanced to the wedge position and pressures and saturations were obta ined. Findings: Right Atrium: 13 mmHg Right ventricle 67/10/17 PA: 60/28/39 PCWP: 19 Laila Cardiac Output: 5.0 L/min, Index 2.3 Conclusion 1. Acute on chronic decompensated diastolic HF. PCWP 19 mm Hg. 2. Secondary pulmonary HTN. mPA 39 mm Hg 3. Normal cardiac output. Recommendations 1. Dyspnea likely related to multifactorial issues. From volume standpoint, would not aggressively di urese and maintain euvolemia to slightly negative at 500 mL daily. Signed by : Abhi Richter, Electronically Approved : 04/17/2019 14:17:53
[2019-04-17] MEDS: MULTIVITAMIN with MINERAL TABLET. PO SCH (17:27)
[2019-04-17] MEDS: CLOPIDOGREL BISULFATE 75 MG TABLET PO SCH (17:27)
[2019-04-17] MEDS: METOPROLOL SUCC 24HR ER 100 MG TAB.ER.24H. PO SCH (17:28)
[2019-04-17] MEDS: EZETIMIBE 10 MG TABLET. PO SCH (17:28)
[2019-04-17] MEDS: ALLOPURINOL 100 MG TABLET. PO SCH (17:28)
[2019-04-17] MEDS: GEMFIBROZIL 600 MG TABLET. PO SCH (17:28)
[2019-04-17] MEDS: ASCORBIC ACID 500 MG TABLET PO SCH (17:28)
[2019-04-17] MEDS: amLODIPine BESYLATE 10 MG TABLET PO SCH (17:28)
[2019-04-17] MEDS: TAMSULOSIN 0.4 MG CAP.ER.24H. PO SCH (20:47)
[2019-04-18 03:15] VITALS: BP 147/67
[2019-04-18 06:32] LABS: CALCIUM 9.5 mg/dL (8.5-10.1); GFR 14.6; POTASSIUM 4.6 mmol/L (3.5-5.1)
[2019-04-18 06:40] LABS: BASO % 1 % (0-3); EOS # 0.3 x10^3/uL (0.0-0.7); EOS % 4 % (0-3); HEMATOCRIT 28.9 % (39.0-53.0); HEMOGLOBIN 9.5 g/dL (13.0-17.5); LYMPH # 1.1 x10^3/uL (1.0-4.8); LYMPH % 14 % (24-48); MEAN CORPUSCULAR HEMOGLOBIN 31 pg (25-35); MEAN CORPUSCULAR HGB CONC 33 g/dL (31-37); MEAN CORPUSCULAR VOLUME 94 fL (79-100); MONO # 0.9 x10^3/uL (0.0-1.1); MONO % 11 % (0-9); NEUT # 5.6 x10^3/uL (1.8-7.7); NEUT % 70 % (31-73); PLATELET COUNT 293 x10^3/uL (140-400); RED BLOOD COUNT 3.07 x10^6/uL (4.30-5.70); RED CELL DISTRIBUTION WIDTH 16.7 % (11.5-14.5)
[2019-04-18 07:08] VITALS: BP 136/63
[2019-04-18 08:16] LABS: PROTHROMBIN TIME PATIENT 18.4 SEC (11.7-14.0)
[2019-04-18] MEDS ORDERED: LIDOCAINE 1%/EPI 1:100,000 20 ML VIAL. ONE (09:50)
[2019-04-18] MEDS: HYDROcodone/APAP 10/325 1 TAB TABLET PO PRN ×3 (09:52→22:18)
[2019-04-18] MEDS ORDERED: VANCOMYCIN 1GM IVPB FOR OMNI 250 ML ONE ×2 (09:58→10:08)
[2019-04-18] MEDS ORDERED: fentaNYL PF VIAL 100 MCG/2 ML VIAL ONE (09:58)
[2019-04-18] MEDS ORDERED: MIDAZOLAM HCL/PF 2 MG/2 ML VIAL. ONE (09:58)
[2019-04-18] MEDS ORDERED: VANCOMYCIN 1GM IVPB FOR OMNI 250 ML IV ONE (10:00)
[2019-04-18] MEDS ORDERED: MIDAZOLAM HCL/PF 2 MG/2 ML VIAL. IV ONE (10:00)
[2019-04-18] MEDS ORDERED: fentaNYL PF VIAL 100 MCG/2 ML VIAL IV ONE (10:00)
[2019-04-18] MEDS ORDERED: LIDOCAINE 1%/EPI 1:100,000 20 ML VIAL. SQ ONE (10:00)
--- NOTE | 2019-04-18 10:39 | NUR ---
SS following up with discharge planning. Pt needing dialysis chair time set up. Serology labs ordered and tunneled catheter being placed today. SS will phone and fax referral to [facility] once serology labs have resulted. SS will continue to follow for discharge planning.
--- NOTE | 2019-04-18 10:42 | PDOC ---
MODERATE SEDATION ASSESSMENT RISKS/ALTERNATIVES Risks/Alternatives Risks and alternatives of this type of sedation and procedure discussed with: RISK/ALTERNATIVES: Patient H & P ON CHART H & P H & P on chart and reviewed for co-morbid conditions and appropriate labs. H&P ON CHART: Yes STATUS PREG STATUS ASSESSED: Yes MEDS/ALLERGIES REVIEWED Meds/Allergies Reviewed Medications and Allergies including time and route of recently administered narcotics and sedatives. MEDS/ALLERGIES REVIEWED: Yes ASA RATING ASA RATING: II AIRWAY ASSESSMENT Airway Assessment Airway patency, oral function limitations, presence of caps, crowns, dentures, partials, and ability to extend neck assessed. AIRWAY ASSESSMENT: Yes MALLAMPATI SCORE MALLAMPATI SCORE: II PRE-SEDATION ASSESSMENT PRE-SEDATION ASSESSMENT: Yes FILOMENA PACHECO MD Apr 18, 2019 10:42
--- NOTE | 2019-04-18 10:43 | PDOC ---
BRIEF OPERATIVE NOTE Pre-Op Diagnosis ARF Post-Op Diagnosis same Procedure Performed Tunnelled HD Catheter Surgeon Marlo Anesthesia Type: Conscious Sedation Findings 23cm Palindrome with excellent manual flows, suitable for use Complications No immediate FILOMENA PACHECO MD Apr 18, 2019 10:43
[2019-04-18 10:49] VITALS: BP 134/59
--- NOTE | 2019-04-18 11:06 | RAD ---
Procedure: Tunneled hemodialysis catheter placement Clinical Indication: 79-year-old requiring hemodialysis Sedation: Conscious sedation was administered for 30 minutes. The patient was monitored by a qualified independent observer throughout the time of sedation. Please refer to the medical record for exact doses of medications utilized to achieve moderate sedation. Antibiotics: Antibiotic was administered intravenously within 1 hour of the procedure start time. Fluoro Time: 0.3 minutes. Images: 2 Contrast: None Sterility: All elements of maximal sterile barrier technique including the use of a cap, mask, sterile gown, sterile gloves, large sterile sheet, appropriate hand hygiene, and 2% chlorhexidine for cutaneous antisepsis (or acceptable alternative antiseptic per current guidelines) were followed for this procedure. Consent: The procedure was explained in its entirety to the patient or the patients designated senior account representative by a member of the treatment team, including a discussion of the risks, benefits and commonly accepted alternatives to the procedure, as well as the expected consequences of no therapy whatsoever. Discussion of the risks included, but was not limited to, those that are most frequent and those that are rare but possibly severe or life-threatening, as well as the possibility of unforeseen complications. Technique and Findings: Following informed consent, the patient was prepped and draped in the usual sterile fashion. Ultrasound interrogation of the right neck revealed patency and compressibility of the right internal jugular vein. A 21-gauge micropuncture was then used to gain access to this vein under ultrasound guidance. A hard copy ultrasound image was recorded. The needle was exchanged over a wire for a 4 [place] sheath which was used to guide an Amplatz wire into the IVC. The skin over the right anterior chest wall was copiously anesthetized with 1% Lidocaine plus Epinephrine and a small dermatotomy was made. A 23 cm palindrome tunneled hemodialysis catheter was then tunneled subcutaneously towards the neck dermatotomy and deployed through a large caliber peel-away sheath under fluoroscopic guidance such that the distal tip resided in the mid right atrium. Manual flow rates were assessed and found to be excellent. The catheter was then flushed, packed with Heparin, capped, and sutured to the skin. The neck dermatotomy was closed with Dermabond. Complications: No immediate Impression: 1. Tunneled hemodialysis catheter placement as described. This catheter demonstrates excellent manual flow rates and is suitable for use immediately.
[2019-04-18 11:07] VITALS: BP 136/64
--- NOTE | 2019-04-18 11:36 | PDOC ---
PROGRESS NOTES Chief Complaint Chief Complaint A/P: Acute on chronic leg edema CHF exacerbation with elevated BNP and interstitial edema on CXR Recent CEA left done by DR Pickard 04/02- ff up vacs sx NOv 4 (already set up- healing very well per acct) Obesity BMI 32 DANNA on CKD - CREAT JUMPED TO 4, Hypertension Normocytic anemia Generalized weakness Paroxysmal A. 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 cr= 1.5 10/01 Diabetes type 2 Dysphagia pulmonary hypertension, mod-severe PLAN: CVC bed, 2 mN I and O Lasix on hold RENAL AND CARD CONSULTS PT.OT d/w in room 36 min pt exam, chart review, > 50% of time spent with exam, chart review, pt care coordination History of Present Illness History of Present Illness Mr Bardales is a 79-year-old M w/ PMHx hypertension, CHF, PVD, carotid disease s/p recent left CEA on 04/02, and chronic kidney disease, stage 4. He was admitted with increasing shortness of breath and lower extremity edema. He was felt to be in decompensated congestive cardiomyopathy. Seen by cardiology and nephrology in consultation. 04/16: He still has ROBERTS walking 20 feet in the hallway and orthopnea. CR 3.7 today (4.3 on admit). D/w nephrology to continue holding diuretics and cardiology that volume status with a RHC would be appropriate. He is amenable to the likely inevitability of renal replacement therapy given his Cr was 1.7 earlier this year, but has been progressively worsening since September. Has a small hematoma on his left neck, stable. 04/17: Overnight was picking at his CEA site and it began oozing blood, soaked multiple pressures dressings and surgicell. Required topical thrombin for hemostasis. Cr 4.2, BUN 71 today. RHC with RVSP 39 NPO for tunneled HD cath right now. Feeling ok today. No further bleeding from left neck. Cr 4 today. Plan on dialysis Vitals Vitals Vital Signs Date Time Temp Pulse Resp B/P (MAP) Pulse Ox O2 Delivery O2 Flow Rate FiO2 04/18/19 11:07 93 136/64 (88) 04/18/19 10:49 15 96 Nasal Cannula 2.0 04/18/19 07:08 98.0 98.0 Physical Exam General: Alert, Oriented X3, Cooperative, No acute distress, Other (left neck incision clean and dry) Heart: Regular rate Lungs: Clear Abdomen: Normal bowel sounds, Soft, No tenderness, No masses Extremities: No clubbing, No cyanosis, Normal pulses, Other (2+ pitting edema) Skin: No rashes Labs LABS Laboratory Tests Test 04/17/19 11:59 04/17/19 16:39 04/17/19 20:45 04/18/19 05:50 Glucose (Fingerstick) 117 mg/dL (70-99) 107 mg/dL (70-99) 157 mg/dL (70-99) White Blood Count 8.0 x10^3/uL (4.0-11.0) Red Blood Count 3.07 x10^6/uL (4.30-5.70) Hemoglobin 9.5 g/dL (13.0-17.5) Hematocrit 28.9 % (39.0-53.0) Mean Corpuscular Volume 94 fL (79-100) Mean Corpuscular Hemoglobin 31 pg (25-35) Mean Corpuscular Hemoglobin Concent 33 g/dL (31-37) Red Cell Distribution Width 16.7 % (11.5-14.5) Platelet Count 293 x10^3/uL (140-400) Neutrophils (%) (Auto) 70 % (31-73) Lymphocytes (%) (Auto) 14 % (24-48) Monocytes (%) (Auto) 11 % (0-9) Eosinophils (%) (Auto) 4 % (0-3) Basophils (%) (Auto) 1 % (0-3) Neutrophils # (Auto) 5.6 x10^3/uL (1.8-7.7) Lymphocytes # (Auto) 1.1 x10^3/uL (1.0-4.8) Monocytes # (Auto) 0.9 x10^3/uL (0.0-1.1) Eosinophils # (Auto) 0.3 x10^3/uL (0.0-0.7) Basophils # (Auto) 0.0 x10^3/uL (0.0-0.2) Prothrombin Time 18.4 SEC (11.7-14.0) Prothromb Time International Ratio 1.6 (0.8-1.1) Activated Partial Thromboplast Time 43 SEC (24-38) Sodium Level 135 mmol/L (136-145) Potassium Level 4.6 mmol/L (3.5-5.1) Chloride Level 99 mmol/L (98-107) Carbon Dioxide Level 24 mmol/L (21-32) Anion Gap 12 (6-14) Blood Urea Nitrogen 70 mg/dL (8-26) Creatinine 4.0 mg/dL (0.7-1.3) Estimated GFR (Cockcroft-Gault) 14.6 Glucose Level 108 mg/dL (70-99) Calcium Level 9.5 mg/dL (8.5-10.1) Test 04/18/19 07:12 04/18/19 11:13 Glucose (Fingerstick) 108 mg/dL (70-99) 112 mg/dL (70-99) Assessment and Plan Assessmemt and Plan Problems Medical Problems: (1) Acute on chronic renal failure Status: Acute (2) CHF exacerbation Status: Acute Comment Review of Relevant I have reviewed the following items viviane (where applicable) has been applied. Labs Laboratory Tests Test 04/16/19 11:40 04/16/19 16:36 04/16/19 20:41 04/17/19 01:40 Glucose (Fingerstick) 170 mg/dL (70-99) 132 mg/dL (70-99) 131 mg/dL (70-99) Hemoglobin 9.2 g/dL (13.0-17.5) Hematocrit 28.0 % (39.0-53.0) Mean Corpuscular Hemoglobin Concent 33 g/dL (31-37) Test 04/17/19 07:10 04/17/19 08:55 04/17/19 11:59 04/17/19 16:39 Glucose (Fingerstick) 110 mg/dL (70-99) 117 mg/dL (70-99) 107 mg/dL (70-99) White Blood Count 7.4 x10^3/uL (4.0-11.0) Red Blood Count 3.14 x10^6/uL (4.30-5.70) Hemoglobin 9.8 g/dL (13.0-17.5) Hematocrit 29.4 % (39.0-53.0) Mean Corpuscular Volume 94 fL (79-100) Mean Corpuscular Hemoglobin 31 pg (25-35) Mean Corpuscular Hemoglobin Concent 33 g/dL (31-37) Red Cell Distribution Width 16.6 % (11.5-14.5) Platelet Count 280 x10^3/uL (140-400) Neutrophils (%) (Auto) 68 % (31-73) Lymphocytes (%) (Auto) 16 % (24-48) Monocytes (%) (Auto) 10 % (0-9) Eosinophils (%) (Auto) 5 % (0-3) Basophils (%) (Auto) 1 % (0-3) Neutrophils # (Auto) 5.0 x10^3/uL (1.8-7.7) Lymphocytes # (Auto) 1.2 x10^3/uL (1.0-4.8) Monocytes # (Auto) 0.8 x10^3/uL (0.0-1.1) Eosinophils # (Auto) 0.4 x10^3/uL (0.0-0.7) Basophils # (Auto) 0.1 x10^3/uL (0.0-0.2) Sodium Level 134 mmol/L (136-145) Potassium Level 4.7 mmol/L (3.5-5.1) Chloride Level 98 mmol/L (98-107) Carbon Dioxide Level 24 mmol/L (21-32) Anion Gap 12 (6-14) Blood Urea Nitrogen 71 mg/dL (8-26) Creatinine 4.2 mg/dL (0.7-1.3) Estimated GFR (Cockcroft-Gault) 13.8 Glucose Level 113 mg/dL (70-99) Calcium Level 9.8 mg/dL (8.5-10.1) Phosphorus Level 4.4 mg/dL (2.6-4.7) Albumin 3.4 g/dL (3.4-5.0) Test 04/17/19 20:45 04/18/19 05:50 04/18/19 07:12 04/18/19 11:13 Glucose (Fingerstick) 157 mg/dL (70-99) 108 mg/dL (70-99) 112 mg/dL (70-99) White Blood Count 8.0 x10^3/uL (4.0-11.0) Red Blood Count 3.07 x10^6/uL (4.30-5.70) Hemoglobin 9.5 g/dL (13.0-17.5) Hematocrit 28.9 % (39.0-53.0) Mean Corpuscular Volume 94 fL (79-100) Mean Corpuscular Hemoglobin 31 pg (25-35) Mean Corpuscular Hemoglobin Concent 33 g/dL (31-37) Red Cell Distribution Width 16.7 % (11.5-14.5) Platelet Count 293 x10^3/uL (140-400) Neutrophils (%) (Auto) 70 % (31-73) Lymphocytes (%) (Auto) 14 % (24-48) Monocytes (%) (Auto) 11 % (0-9) Eosinophils (%) (Auto) 4 % (0-3) Basophils (%) (Auto) 1 % (0-3) Neutrophils # (Auto) 5.6 x10^3/uL (1.8-7.7) Lymphocytes # (Auto) 1.1 x10^3/uL (1.0-4.8) Monocytes # (Auto) 0.9 x10^3/uL (0.0-1.1) Eosinophils # (Auto) 0.3 x10^3/uL (0.0-0.7) Basophils # (Auto) 0.0 x10^3/uL (0.0-0.2) Prothrombin Time 18.4 SEC (11.7-14.0) Prothromb Time International Ratio 1.6 (0.8-1.1) Activated Partial Thromboplast Time 43 SEC (24-38) Sodium Level 135 mmol/L (136-145) Potassium Level 4.6 mmol/L (3.5-5.1) Chloride Level 99 mmol/L (98-107) Carbon Dioxide Level 24 mmol/L (21-32) Anion Gap 12 (6-14) Blood Urea Nitrogen 70 mg/dL (8-26) Creatinine 4.0 mg/dL (0.7-1.3) Estimated GFR (Cockcroft-Gault) 14.6 Glucose Level 108 mg/dL (70-99) Calcium Level 9.5 mg/dL (8.5-10.1) Laboratory Tests Test 04/17/19 11:59 04/17/19 16:39 04/17/19 20:45 04/18/19 05:50 Glucose (Fingerstick) 117 mg/dL (70-99) 107 mg/dL (70-99) 157 mg/dL (70-99) White Blood Count 8.0 x10^3/uL (4.0-11.0) Red Blood Count 3.07 x10^6/uL (4.30-5.70) Hemoglobin 9.5 g/dL (13.0-17.5) Hematocrit 28.9 % (39.0-53.0) Mean Corpuscular Volume 94 fL (79-100) Mean Corpuscular Hemoglobin 31 pg (25-35) Mean Corpuscular Hemoglobin Concent 33 g/dL (31-37) Red Cell Distribution Width 16.7 % (11.5-14.5) Platelet Count 293 x10^3/uL (140-400) Neutrophils (%) (Auto) 70 % (31-73) Lymphocytes (%) (Auto) 14 % (24-48) Monocytes (%) (Auto) 11 % (0-9) Eosinophils (%) (Auto) 4 % (0-3) Basophils (%) (Auto) 1 % (0-3) Neutrophils # (Auto) 5.6 x10^3/uL (1.8-7.7) Lymphocytes # (Auto) 1.1 x10^3/uL (1.0-4.8) Monocytes # (Auto) 0.9 x10^3/uL (0.0-1.1) Eosinophils # (Auto) 0.3 x10^3/uL (0.0-0.7) Basophils # (Auto) 0.0 x10^3/uL (0.0-0.2) Prothrombin Time 18.4 SEC (11.7-14.0) Prothromb Time International Ratio 1.6 (0.8-1.1) Activated Partial Thromboplast Time 43 SEC (24-38) Sodium Level 135 mmol/L (136-145) Potassium Level 4.6 mmol/L (3.5-5.1) Chloride Level 99 mmol/L (98-107) Carbon Dioxide Level 24 mmol/L (21-32) Anion Gap 12 (6-14) Blood Urea Nitrogen 70 mg/dL (8-26) Creatinine 4.0 mg/dL (0.7-1.3) Estimated GFR (Cockcroft-Gault) 14.6 Glucose Level 108 mg/dL (70-99) Calcium Level 9.5 mg/dL (8.5-10.1) Test 04/18/19 07:12 04/18/19 11:13 Glucose (Fingerstick) 108 mg/dL (70-99) 112 mg/dL (70-99) Medications Current Medications Ondansetron HCl (Zofran) 4 mg PRN Q8HRS PRN IV NAUSEA/VOMITING; Start 04/13/19 at 16:30; Stop 04/14/19 at 16:29; Status DC Fentanyl Citrate (Fentanyl 2ml Vial) 50 mcg PRN Q1HR PRN IV PAIN; Start 04/13/19 at 16:30; Stop 04/14/19 at 16:29; Status DC Acetaminophen (Tylenol) 650 mg PRN Q4HRS PRN PO FEVER; Start 04/13/19 at 16:30; Stop 04/14/19 at 16:29; Status DC Nitroglycerin (Nitrostat) 0.4 mg PRN Q5MIN PRN SL CHEST PAIN; Start 04/13/19 at 16:30; Stop 04/14/19 at 16:29; Status DC Acetaminophen (Tylenol) 500 mg PRN Q6HRS PRN PO MILD PAIN / TEMP; Start 04/13/19 at 16:45 Allopurinol (Zyloprim) 200 mg DAILY PO Last administered on 04/17/19at 17:28; Start 04/14/19 at 09:00 Amlodipine Besylate (Norvasc) 10 mg DAILY PO Last administered on 04/17/19at 17:28; Start 04/14/19 at 09:00 Apixaban (Eliquis) 5 mg BID PO Last administered on 04/16/19at 08:46; Start 04/13/19 at 21:00; Stop 04/16/19 at 15:58; Status DC Clopidogrel Bisulfate (Plavix) 75 mg DAILY PO Last administered on 04/17/19at 17:27; Start 04/14/19 at 09:00 EZETIMIBE (Zetia) 10 mg DAILY PO Last administered on 04/17/19 17:28; Start 04/14/19 at 09:00 Furosemide (Lasix) 40 mg DAILY PO ; Start 04/14/19 at 09:00; Stop 04/13/19 at 18:31; Status DC Gemfibrozil (Lopid) 600 mg DAILY PO Last administered on 04/17/19 17:28; Start 04/14/19 at 09:00 Acetaminophen/ Hydrocodone Bitart (Lortab 10/325) 1 tab PRN Q6HRS PRN PO PAIN MOD TO SEV Last administered on 04/18/19 09:52; Start 04/13/19 at 16:45 Metoprolol Succinate (Toprol Xl) 100 mg DAILY PO Last administered on 04/17/19 17:28; Start 04/14/19 at 09:00 Polyethylene Glycol (miraLAX PACKET) 17 gm DAILY PO Last administered on 04/16/19 08:46; Start 04/14/19 at 09:00 Tamsulosin HCl (Flomax) 0.4 mg HS PO Last administered on 04/17/19 20:47; Start 04/13/19 at 21:00 Ascorbic Acid (Vitamin C) 1,000 mg DAILY PO Last administered on 04/17/19 17:28; Start 04/14/19 at 09:00 Pantoprazole Sodium (Protonix) 40 mg DAILYAC PO Last administered on 04/16/19 07:30; Start 04/14/19 at 07:30 Multivitamins (Thera M Plus) 1 tab DAILY PO Last administered on 04/17/19 17:27; Start 04/14/19 at 09:00 Non-Formulary Medication (Ubidecarenone (Co Q-10)) 200 mg DAILY PO ; Start 04/14/19 at 09:00; Status UNV Multivitamins/ Minerals (I-Rehana) 1 tab DAILY PO Last administered on 04/16/19 08:46; Start 04/14/19 at 09:00 Temazepam (Restoril) 7.5 mg PRN QHS PRN PO INSOMNIA; Start 04/13/19 at 16:45 Ondansetron HCl (Zofran) 4 mg PRN Q6HRS PRN IVP NAUSEA/VOMITING; Start 04/13/19 at 16:45 Albuterol/ Ipratropium (Duoneb) 3 ml RTQID NEB ; Start 04/13/19 at 20:00; Stop 04/14/19 at 21:07; Status DC Guaifenesin (Robitussin Dm) 10 ml PRN Q6HRS PRN PO COUGH; Start 04/13/19 at 16:45 Info (Anti-Coagulation Monitoring By Pharmacy) 1 each PRN DAILY PRN MC SEE COM MENTS Last administered on 04/16/19at 11:08; Start 04/13/19 at 17:00 Sodium Chloride 1,000 ml @ 100 mls/hr 1X ONCE IV Last administered on 04/13/19at 19:58; Start 04/13/19 at 18:30; Stop 04/14/19 at 04:29; Status DC Albuterol Sulfate (Ventolin Neb Soln) 2.5 mg PRN QID PRN NEB SHORTNESS OF BREATH; Start 04/14/19 at 21:15 Hydralazine HCl (Apresoline Inj) 10 mg PRN Q4HRS PRN IVP ELEVATED BP, SEE COMMENTS; Start 04/16/19 at 03:30 Cellulose (Surgicel Hemostat 4x8) 1 each 1X ONCE TP Last administered on 04/17/19at 00:57; Start 04/17/19 at 01:00; Stop 04/17/19 at 01:01; Status DC Thrombin 20,000 unit 1X ONCE TP ; Start 04/17/19 at 03:00; Stop 04/17/19 at 03:01; Status DC Lidocaine HCl (Lidocaine 1% 20ml Vial) 20 ml STK-MED ONCE .ROUTE ; Start 1 at 12:56; Stop 04/17/19 at 12:56; Status DC Heparin Sodium/ Sodium Chloride (HEPARIN for ARTERIAL LINE FLUSH) 1,000 unit 1X ONCE IART Last administered on 04/17/19at 13:00; Start 04/17/19 at 13:00; Stop 04/17/19 at 13:01; Status DC Heparin Sodium/ Sodium Chloride (HEPARIN for ARTERIAL LINE FLUSH) 1,000 unit 1X ONCE IART ; Start 04/17/19 at 13:00; Stop 04/17/19 at 13:01; Status DC Midazolam HCl (Versed) 2 mg 1X ONCE IV Last administered on 04/17/19at 13:00; Start 04/17/19 at 13:00; Stop 04/17/19 at 13:01; Status DC Fentanyl Citrate (Fentanyl 2ml Vial) 100 mcg 1X ONCE IV Last administered on 04/17/19at 13:00; Start 04/17/19 at 13:00; Stop 04/17/19 at 13:01; Status DC Lidocaine HCl (Lidocaine 1% 20ml Vial) 20 ml 1X ONCE INJ Last administered on 04/17/19at 13:00; Start 04/17/19 at 13:00; Stop 04/17/19 at 13:01; Status DC Heparin Sodium/ Sodium Chloride 500 ml @ As Directed STK-MED ONCE .ROUTE ; Start 04/17/19 at 12:56; Stop 04/17/19 at 12:56; Status DC Fentanyl Citrate (Fentanyl 2ml Vial) 100 mcg STK-MED ONCE .ROUTE ; Start 04/17/19 at 13:03; Stop 04/17/19 at 13:03; Status DC Midazolam HCl (Versed) 2 mg STK-MED ONCE .ROUTE ; Start 04/17/19 at 13:03; Stop 04/17/19 at 13:04; Status DC Lidocaine/ Epinephrine (LIDOCAINE 1%-EPI 1:100,000 Multi-Dose) 20 ml STK-MED ONCE .ROUTE ; Start 04/18/19 at 09:50; Stop 04/18/19 at 09:50; Status DC Midazolam HCl (Versed) 2 mg 1X ONCE IV Last administered on 04/18/19at 10:00; Start 04/18/19 at 10:00; Stop 04/18/19 at 10:01; Status DC Fentanyl Citrate (Fentanyl 2ml Vial) 100 mcg 1X ONCE IV Last administered on 04/18/19at 10:00; Start 04/18/19 at 10:00; Stop 04/18/19 at 10:01; Status DC Lidocaine/ Epinephrine (LIDOCAINE 1%-EPI 1:100,000 Multi-Dose) 20 ml 1X ONCE SQ Last administered on 04/18/19at 10:00; Start 04/18/19 at 10:00; Stop 04/18/19 at 10:01; Status DC Vancomycin HCl 250 ml @ 250 mls/hr 1X ONCE IV Last administered on 04/18/19at 10:00; Start 04/18/19 at 10:00; Stop 04/18/19 at 10:59; Status DC Vancomycin HCl 250 ml @ As Directed STK-MED ONCE .ROUTE ; Start 04/18/19 at 09:58; Stop 04/18/19 at 09:59; Status DC Midazolam HCl (Versed) 2 mg STK-MED ONCE .ROUTE ; Start 04/18/19 at 09:58; Stop 04/18/19 at 09:59; Status DC Fentanyl Citrate (Fentanyl 2ml Vial) 100 mcg STK-MED ONCE .ROUTE ; Start 04/18/19 at 09:58; Stop 04/18/19 at 09:59; Status DC Vancomycin HCl 250 ml @ As Directed STK-MED ONCE .ROUTE ; Start 04/18/19 at 10:08; Stop 04/18/19 at 10:08; Status DC Active Scripts Active Acetaminophen 500 Mg Tablet 500 Mg PO PRN Q6HRS PRN 14 Days Eliquis (Apixaban) 5 Mg Tablet 5 Mg PO BID 30 Days Reported Miralax (Polyethylene Glycol 3350) 17 Gm Powd.pack 1 Pkt PO DAILY Hydrocodone-Apap 10-325 (Hydrocodone Bit/Acetaminophen) 1 Tab Tablet 1 Tab PO PRN Q6HRS PRN Preservision Areds Tablet (Vit A/Vit C/Vit E/Zinc/Copper) 1 Each Tablet 1 Each PO DAILY Allopurinol 300 Mg Tablet 300 Mg PO DAILY Furosemide 40 Mg Tablet 40 Mg PO DAILY Toprol Xl (Metoprolol Succinate) 50 Mg Tab.er.24h 100 Mg PO DAILY Flomax (Tamsulosin Hcl) 0.4 Mg Cap.er.24h 1 Cap PO HS Amlodipine Besylate 5 Mg Tablet 10 Mg PO DAILY Testosterone Cypionate 200 Mg/1 Ml Vial 1 Ml IM [id number] Clopidogrel (Clopidogrel Bisulfate) 75 Mg Tablet 1 Tab PO DAILY Vitamin C (Ascorbic Acid) 1,000 Mg Tablet 1,000 Mg PO DAILY Co Q-10 (Ubidecarenone) 200 Mg Capsule 200 Mg PO DAILY Krill Oil 500 Mg Capsule 500 Mg PO Multi-Vitamin Daily (Multivitamin) 1 Each Tablet 1 Each PO DAILY Gemfibrozil 600 Mg Tablet 1 Tab PO DAILY Zetia (Ezetimibe) 10 Mg Tablet 1 Tab PO DAILY Losartan Potassium 100 Mg Tablet 100 Mg PO DAILY Nexium Capsule (Esomeprazole Magnesium) 40 Mg Capsule.dr 1 Cap PO DAILY Vitals/I & O Vital Sign - Last 24 Hours 04/17/19 04/17/19 04/17/19 04/17/19 13:00 14:01 14:19 14:34 Pulse 94 101 96 Resp 16 16 Pulse Ox 98 98 98 O2 Delivery Nasal Cannula Nasal Cannula Nasal Cannula O2 Flow Rate 2.0 2.0 2.0 04/17/19 04/17/19 04/17/19 04/17/19 14:49 15:00 15:04 15:19 Temp 97.9 97.9 Pulse 107 90 107 69 Resp 18 B/P (MAP) 142/72 (95) Pulse Ox 98 95 98 98 O2 Delivery Nasal Cannula Nasal Cannula Nasal Cannula Nasal Cannula O2 Flow Rate 2.0 2.0 2.0 2.0 04/17/19 04/17/19 04/17/19 04/17/19 15:49 16:19 17:19 17:27 Pulse 107 86 92 Pulse Ox 98 98 98 95 O2 Delivery Nasal Cannula Nasal Cannula Nasal Cannula Room Air O2 Flow Rate 2.0 2.0 2.0 2.0 04/17/19 04/17/19 04/17/19 04/17/19 17:28 17:28 17:40 17:49 Pulse 90 90 96 B/P (MAP) 142/72 142/72 Pulse Ox 95 98 O2 Delivery Room Air Nasal Cannula O2 Flow Rate 2.0 2.0 04/17/19 04/17/19 04/17/19 04/17/19 18:28 19:20 20:05 22:50 Temp 98.2 97.9 98.2 97.9 Pulse 91 80 Resp 20 20 B/P (MAP) 134/64 (87) 141/72 (95) Pulse Ox 98 95 94 O2 Delivery Room Air Nasal Cannula Nasal Cannula Nasal Cannula O2 Flow Rate 2.0 2.0 2.0 2.0 04/17/19 04/18/19 04/18/19 04/18/19 23:42 00:42 03:15 07:08 Temp 98.4 98.0 98.4 98.0 Pulse 78 78 Resp 20 20 B/P (MAP) 147/67 (93) 136/63 (87) Pulse Ox 94 92 O2 Delivery Nasal Cannula Nasal Cannula Nasal Cannula Room Air O2 Flow Rate 2.0 2.0 2.0 04/18/19 04/18/19 04/18/19 04/18/19 08:06 09:52 10:00 10:49 Pulse 89 Resp 16 15 Pulse Ox 92 96 O2 Delivery Room Air Room Air Nasal Cannula O2 Flow Rate 2.0 2.0 04/18/19 11:07 Pulse 93 B/P (MAP) 136/64 (88) Intake and Output 04/17/19 04/17/19 04/18/19 15:00 23:00 07:00 Intake Total 240 ml 600 ml Output Total 750 ml 600 ml 1050 ml Balance -750 ml -360 ml -450 ml SUHAS BASS MD Apr 18, 2019 11:36
--- NOTE | 2019-04-18 12:40 | PDOC ---
Provider Note Provider Note Vascular S: Patient without complaints, no additional bleeding left neck. O: Awake and alert VSS Left neck incision dry and intact. Right femoral access site dressing intact, palpable femoral pulse, no swelling or hematoma. Foot warm, moderate lower leg swelling. A/P: s/p Left CEA with incisional bleeding yesterday. Remains dry. Ok to remove dressing after lunch. F/U as scheduled 04/23/2019 10:[address] Pickard. ANDREW RIVERO APRN Apr 18, 2019 12:40
--- NOTE | 2019-04-18 14:10 | PDOC ---
GEM MULLEN [employer] FILLER 04/18/19 1410: CARDIO Progress Notes Date and Time Date of Service 04/18/19 Time of Evaluation 1100 Subjective Subjective: No Chest Pain, No Palpitations Vitals Vitals Vital Signs Date Time Temp Pulse Resp B/P (MAP) Pulse Ox O2 Delivery O2 Flow Rate FiO2 04/18/19 11:07 93 136/64 (88) 04/18/19 10:49 15 96 Nasal Cannula 2.0 04/18/19 07:08 98.0 98.0 Weight Weight [ ] Input and Output Intake and Output Intake and Output 04/18/19 07:00 Intake Total 840 ml Output Total 2400 ml Balance -1560 ml Intake Oral 840 ml Output Urine Total 2400 ml Laboratory Labs Laboratory Tests Test 04/17/19 16:39 04/17/19 20:45 04/18/19 05:50 04/18/19 07:12 Glucose (Fingerstick) 107 mg/dL (70-99) 157 mg/dL (70-99) 108 mg/dL (70-99) White Blood Count 8.0 x10^3/uL (4.0-11.0) Red Blood Count 3.07 x10^6/uL (4.30-5.70) Hemoglobin 9.5 g/dL (13.0-17.5) Hematocrit 28.9 % (39.0-53.0) Mean Corpuscular Volume 94 fL (79-100) Mean Corpuscular Hemoglobin 31 pg (25-35) Mean Corpuscular Hemoglobin Concent 33 g/dL (31-37) Red Cell Distribution Width 16.7 % (11.5-14.5) Platelet Count 293 x10^3/uL (140-400) Neutrophils (%) (Auto) 70 % (31-73) Lymphocytes (%) (Auto) 14 % (24-48) Monocytes (%) (Auto) 11 % (0-9) Eosinophils (%) (Auto) 4 % (0-3) Basophils (%) (Auto) 1 % (0-3) Neutrophils # (Auto) 5.6 x10^3/uL (1.8-7.7) Lymphocytes # (Auto) 1.1 x10^3/uL (1.0-4.8) Monocytes # (Auto) 0.9 x10^3/uL (0.0-1.1) Eosinophils # (Auto) 0.3 x10^3/uL (0.0-0.7) Basophils # (Auto) 0.0 x10^3/uL (0.0-0.2) Prothrombin Time 18.4 SEC (11.7-14.0) Prothromb Time International Ratio 1.6 (0.8-1.1) Activated Partial Thromboplast Time 43 SEC (24-38) Sodium Level 135 mmol/L (136-145) Potassium Level 4.6 mmol/L (3.5-5.1) Chloride Level 99 mmol/L (98-107) Carbon Dioxide Level 24 mmol/L (21-32) Anion Gap 12 (6-14) Blood Urea Nitrogen 70 mg/dL (8-26) Creatinine 4.0 mg/dL (0.7-1.3) Estimated GFR (Cockcroft-Gault) 14.6 Glucose Level 108 mg/dL (70-99) Calcium Level 9.5 mg/dL (8.5-10.1) Test 04/18/19 11:13 Glucose (Fingerstick) 112 mg/dL (70-99) Physical Exam HEENT: Neck Supple W Full Motion Chest: Symmetric LUNGS: Other (diminished bases) Heart: S1S2, RRR, murmurs (2/6 systolic murmur ) Abdomen: Soft N/T Extremities: Other (2-3+ bilateral LE edema ) Neurology: alert, oriented, follow commands Assessment Assessment 1. Acute on chronic decompensated diastolic/systolic HF: LVEF 30%. 2. DANNA on CKD; CR worsening. HD to be initiated 3. PAFIB; mainly SR. Eliquis for stroke prevention 4. HTN: Controlled 5. CAD: CABGx2 in 2010 6. Hyperlipidemia; statin 7. s/p LCEA 8. Diabetes, II Recommendations Resume Eliquis therapy BB for rate control Fluid offloading via HD RONALDO DANIEL MD 04/18/19 9067: CARDIO Progress Notes Plan Plan Pt. seen and examined. Agree with above [employer] SALES ASSISTANT note. Plans for HD today. Agree with plans given his dyspnea and CKD Supportive care. Discussed extensively with and family. GEM MULLEN APRN Apr 18, 2019 14:10 RONALDO DANIEL MD Apr 18, 2019 17:04
--- NOTE | 2019-04-18 14:18 | PDOC ---
SUBJECTIVE ROS Has [place] [facility] placed this am, Seen on HD OBJECTIVE Vital Signs Vital Signs Date Time Temp Pulse Resp B/P (MAP) Pulse Ox O2 Delivery O2 Flow Rate FiO2 04/18/19 11:07 93 136/64 (88) 04/18/19 10:49 15 96 Nasal Cannula 2.0 04/18/19 07:08 98.0 98.0 I & 0 Intake and Output 04/18/19 07:00 Intake Total 840 ml Output Total 2400 ml Balance -1560 ml Intake Oral 840 ml Output Urine Total 2400 ml PHYSICAL EXAM Physical Exam General appearance NAD HEENT: Right eye blind(Traumatic), OM moist Neck supple Cardiovascular: S1, S2, RRR Pulmonary: Clear to auscultation bilaterally, No accessory muscle use Abdomen: nontender, and nondistended. Extremities: Significant LE edema , has compression stockings NeUro - Grossly normal No Rangel, No SP/CVA tenderness Skin No Rash or any other lesion DIAGNOSIS/ASSESSMENT Assessment & Plan DANNA - ? New onset ESRD UA Unremarkable,Renal US earlier this month unremarkable initiated on HD , 1 st treatment today , seen on HD, tolerating well , continue as ordered Monitor for recovery to baseline , avoid aggressive UF, 1 Lt as tolerated Access- Tunneled Dialysis catheter CKD stage 3 - Follows with Dr. Stewart as op Baseline as OP 1,6- 2.20 Acute on Chronic systolic/diastolic CHF ICM; LVEF30% per echo in august RHC for Vol status done on 04/17Acute on chronic decompensated diastolic HF. PCWP 19 mm Hg. 2. Secondary pulmonary HTN. mPA 39 mm Hg Normal cardiac output. 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 CAD: CABGx2 in 2010. Recent MPI Hypertension; controlled Diabetes, II PAD -left foot ulcer: s/p percutaneous revascularization 04/2018. Pulmonary HTN; PAP 50 mmHg Right renal simple cyst at the interpolar region laterally is present measuring 2.6 cm x 2.7 cm x 2.6 cm COMMENT/RELEVANT DATA Meds Current Medications Medications (Trade) Dose Ordered Sig/Cha Start Time Stop Time Status Last Admin Dose Admin Acetaminophen (Tylenol) 500 mg PRN Q6HRS PRN 04/13/19 16:45 Acetaminophen/ Hydrocodone Bitart (Lortab 10325) 1 tab PRN Q6HRS PRN 04/13/19 16:45 04/18/19 09:52 1 TAB Albuterol Sulfate (Ventolin Neb Soln) 2.5 mg PRN QID PRN 04/14/19 21:15 Albuterol/ Ipratropium (Duoneb) 3 ml RTQID 04/13/19 20:00 04/14/19 21:07 DC Allopurinol (Zyloprim) 200 mg DAILY 04/14/19 09:00 04/17/19 17:28 200 MG Amlodipine Besylate (Norvasc) 10 mg DAILY 04/14/19 09:00 04/17/19 17:28 10 MG Apixaban (Eliquis) 5 mg BID 04/13/19 21:00 04/16/19 15:58 DC 04/16/19 08:46 5 MG Ascorbic Acid (Vitamin C) 1,000 mg DAILY 04/14/19 09:00 04/17/19 17:28 1,000 MG Cellulose (Surgicel Hemostat 4x8) 1 each 1X ONCE 04/17/19 01:00 04/17/19 01:01 DC 04/17/19 00:57 1 EACH Clopidogrel Bisulfate (Plavix) 75 mg DAILY 04/14/19 09:00 04/17/19 17:27 75 MG EZETIMIBE (Zetia) 10 mg DAILY 04/14/19 09:00 04/17/19 17:28 10 MG Fentanyl Citrate (Fentanyl 2ml Vial) 100 mcg STK-MED ONCE 04/18/19 09:58 04/18/19 09:59 DC Furosemide (Lasix) 40 mg DAILY 04/14/19 09:00 04/13/19 18:31 DC Gemfibrozil (Lopid) 600 mg DAILY 04/14/19 09:00 04/17/19 17:28 600 MG Guaifenesin (Robitussin Dm) 10 ml PRN Q6HRS PRN 04/13/19 16:45 Heparin Sodium/ Sodium Chloride 500 ml @ As Directed STK-MED ONCE 04/17/19 12:56 04/17/19 12:56 DC Heparin Sodium/ Sodium Chloride (HEPARIN for ARTERIAL LINE FLUSH) 1,000 unit 1X ONCE 04/17/19 13:00 04/17/19 13:01 DC Hydralazine HCl (Apresoline Inj) 10 mg PRN Q4HRS PRN 04/16/19 03:30 Info (Anti-Coagulation Monitoring By Pharmacy) 1 each PRN DAILY PRN 04/13/19 17:00 04/16/19 11:08 1 EACH Lidocaine HCl (Lidocaine 1% 20ml Vial) 20 ml 1X ONCE 04/17/19 13:00 04/17/19 13:01 DC 04/17/19 13:00 19 ML Lidocaine/ Epinephrine (LIDOCAINE 1%-EPI 1:100,000 Multi-Dose) 20 ml 1X ONCE 04/18/19 10:00 04/18/19 10:01 DC 04/18/19 10:00 10 ML Metoprolol Succinate (Toprol Xl) 100 mg DAILY 04/14/19 09:00 04/17/19 17:28 100 MG Midazolam HCl (Versed) 2 mg STK-MED ONCE 04/18/19 09:58 04/18/19 09:59 DC Multivitamins (Thera M Plus) 1 tab DAILY 04/14/19 09:00 04/17/19 17:27 1 TAB Multivitamins/ Minerals (I-Rehana) 1 tab DAILY 04/14/19 09:00 04/16/19 08:46 1 TAB Nitroglycerin (Nitrostat) 0.4 mg PRN Q5MIN PRN 04/13/19 16:30 04/14/19 16:29 DC Non-Formulary Medication (Ubidecarenone (Co Q-10)) 200 mg DAILY 04/14/19 09:00 UNV Ondansetron HCl (Zofran) 4 mg PRN Q6HRS PRN 04/13/19 16:45 Pantoprazole Sodium (Protonix) 40 mg DAILYAC 04/14/19 07:30 04/16/19 07:30 40 MG Polyethylene Glycol (miraLAX PACKET) 17 gm DAILY 04/14/19 09:00 04/16/19 08:46 17 GM Sodium Chloride 1,000 ml @ 100 mls/hr 1X ONCE 04/13/19 18:30 04/14/19 04:29 DC 04/13/19 19:58 100 MLS/HR Tamsulosin HCl (Flomax) 0.4 mg HS 04/13/19 21:00 04/17/19 20:47 0.4 MG Temazepam (Restoril) 7.5 mg PRN QHS PRN 04/13/19 16:45 Thrombin 20,000 unit 1X ONCE 04/17/19 03:00 04/17/19 03:01 DC Vancomycin HCl 250 ml @ As Directed STK-MED ONCE 04/18/19 10:08 04/18/19 10:08 DC Lab Laboratory Tests Test 04/17/19 16:39 04/17/19 20:45 04/18/19 05:50 04/18/19 07:12 Glucose (Fingerstick) 107 mg/dL (70-99) 157 mg/dL (70-99) 108 mg/dL (70-99) White Blood Count 8.0 x10^3/uL (4.0-11.0) Red Blood Count 3.07 x10^6/uL (4.30-5.70) Hemoglobin 9.5 g/dL (13.0-17.5) Hematocrit 28.9 % (39.0-53.0) Mean Corpuscular Volume 94 fL (79-100) Mean Corpuscular Hemoglobin 31 pg (25-35) Mean Corpuscular Hemoglobin Concent 33 g/dL (31-37) Red Cell Distribution Width 16.7 % (11.5-14.5) Platelet Count 293 x10^3/uL (140-400) Neutrophils (%) (Auto) 70 % (31-73) Lymphocytes (%) (Auto) 14 % (24-48) Monocytes (%) (Auto) 11 % (0-9) Eosinophils (%) (Auto) 4 % (0-3) Basophils (%) (Auto) 1 % (0-3) Neutrophils # (Auto) 5.6 x10^3/uL (1.8-7.7) Lymphocytes # (Auto) 1.1 x10^3/uL (1.0-4.8) Monocytes # (Auto) 0.9 x10^3/uL (0.0-1.1) Eosinophils # (Auto) 0.3 x10^3/uL (0.0-0.7) Basophils # (Auto) 0.0 x10^3/uL (0.0-0.2) Prothrombin Time 18.4 SEC (11.7-14.0) Prothromb Time International Ratio 1.6 (0.8-1.1) Activated Partial Thromboplast Time 43 SEC (24-38) Sodium Level 135 mmol/L (136-145) Potassium Level 4.6 mmol/L (3.5-5.1) Chloride Level 99 mmol/L (98-107) Carbon Dioxide Level 24 mmol/L (21-32) Anion Gap 12 (6-14) Blood Urea Nitrogen 70 mg/dL (8-26) Creatinine 4.0 mg/dL (0.7-1.3) Estimated GFR (Cockcroft-Gault) 14.6 Glucose Level 108 mg/dL (70-99) Calcium Level 9.5 mg/dL (8.5-10.1) Test 04/18/19 11:13 Glucose (Fingerstick) 112 mg/dL (70-99) Results All relevant outside records, renal labs, imaging studies, telemetry/EKG's were reviewed. JOSÉ MIGUEL MUNOZ MD Apr 18, 2019 14:18
[2019-04-18] MEDS ORDERED: IV NORMAL SALINE 1000ML BAG 1,000 ML IV PRN ×2 (14:22)
[2019-04-18] MEDS ORDERED: DIALYSIS PATIENT. MC PRN (14:30)
[2019-04-18] MEDS ORDERED: diphenhydrAMINE 50 MG/ML VIAL IV PRN ×2 (14:30)
[2019-04-18] MEDS ORDERED: ACETAMINOPHEN 500 MG TABLET PO PRN (14:30)
--- NOTE | 2019-04-18 16:00 | NUR ---
SS following up with discharge planning. SS phoned and faxed referral for OPHD to [facility], ; fax [phone]. SS still awaiting serology labs and flow sheet from [facility]. SS will phone and fax additional clinical in the morning. SS will continue to follow for discharge planning.
[2019-04-18] MEDS: POLYETHYLENE GLYCOL 3350 17 GM PACKET. PO SCH (19:14)
[2019-04-18] MEDS: MULTIVITAMIN I-VITE TABLET. PO SCH (19:15)
[2019-04-18] MEDS: ASCORBIC ACID 500 MG TABLET PO SCH (19:15)
[2019-04-18] MEDS: METOPROLOL SUCC 24HR ER 100 MG TAB.ER.24H. PO SCH (19:15)
[2019-04-18] MEDS: ALLOPURINOL 100 MG TABLET. PO SCH (19:15)
[2019-04-18] MEDS: MULTIVITAMIN with MINERAL TABLET. PO SCH (19:15)
[2019-04-18] MEDS: PANTOPRAZOLE 40 MG TABLET.DR. PO SCH (19:15)
[2019-04-18] MEDS: EZETIMIBE 10 MG TABLET. PO SCH (19:15)
[2019-04-18] MEDS: CLOPIDOGREL BISULFATE 75 MG TABLET PO SCH (19:15)
[2019-04-18] MEDS: amLODIPine BESYLATE 10 MG TABLET PO SCH (19:16)
[2019-04-18] MEDS ORDERED: HYDROmorphone 2 MG/ML VIAL IV ONE (19:30)
[2019-04-18] MEDS: GEMFIBROZIL 600 MG TABLET. PO SCH (19:30)
[2019-04-18 19:44] VITALS: BP 159/64
[2019-04-18] MEDS: TAMSULOSIN 0.4 MG CAP.ER.24H. PO SCH (21:26)
[2019-04-18 23:15] VITALS: BP 119/72
[2019-04-19 02:51] VITALS: BP 132/59
[2019-04-19 07:00] VITALS: BP 149/66
--- NOTE | 2019-04-19 08:05 | PDOC ---
PROGRESS NOTES Chief Complaint Chief Complaint A/P: Acute on chronic leg edema CHF exacerbation with elevated BNP and interstitial edema on CXR Recent CEA left done by DR Pickard 04/02- ff up vacs sx NOv 4 (already set up- healing very well per acct) Obesity BMI 32 DANNA on CKD - CREAT JUMPED TO 4, Hypertension Normocytic anemia Generalized weakness Paroxysmal A. 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 cr= 1.5 10/01 Diabetes type 2 Dysphagia pulmonary hypertension, mod-severe PLAN: CVC bed, 2 mN I and O Lasix on hold RENAL AND CARD CONSULTS PT.OT d/w in room 36 min pt exam, chart review, > 50% of time spent with exam, chart review, pt care coordination History of Present Illness History of Present Illness Mr Bardales is a 79-year-old M w/ PMHx hypertension, CHF, PVD, carotid disease s/p recent left CEA on 04/02, and chronic kidney disease, stage 4. He was admitted with increasing shortness of breath and lower extremity edema. He was felt to be in decompensated congestive cardiomyopathy. Seen by cardiology and nephrology in consultation. 04/16: He still has ROBERTS walking 20 feet in the hallway and orthopnea. CR 3.7 today (4.3 on admit). D/w nephrology to continue holding diuretics and cardiology that volume status with a RHC would be appropriate. He is amenable to the likely inevitability of renal replacement therapy given his Cr was 1.7 earlier this year, but has been progressively worsening since September. Has a small hematoma on his left neck, stable. 04/17: Overnight was picking at his CEA site and it began oozing blood, soaked multiple pressures dressings and surgicell. Required topical thrombin for hemostasis. Cr 4.2, BUN 71 today. RHC with RVSP 39 04/18: S/p tunneled HD cath right now. Feeling ok today. No further bleeding from left neck. Cr 4 today. 1st session of dialysis He feels wiped out after dialysis yesterday. A bit weak. Cr 2.9, BUN 40 now. Plans for dialysis tomorrow. Vitals Vitals Vital Signs Date Time Temp Pulse Resp B/P (MAP) Pulse Ox O2 Delivery O2 Flow Rate FiO2 10/31/19 02:51 97.5 91 16 132/59 (83) 90 Room Air 97.5 04/18/19 23:15 2.0 Physical Exam General: Alert, Oriented X3, Cooperative, No acute distress, Other (left neck incision clean and dry) Heart: Regular rate Lungs: Clear Abdomen: Normal bowel sounds, Soft, No tenderness, No masses Extremities: No clubbing, No cyanosis, Normal pulses, Other (2+ pitting edema) Skin: No rashes Labs LABS Laboratory Tests Test 04/18/19 11:13 04/18/19 21:12 04/19/19 07:22 Glucose (Fingerstick) 112 mg/dL (70-99) 145 mg/dL (70-99) 123 mg/dL (70-99) Assessment and Plan Assessmemt and Plan Problems Medical Problems: (1) Acute on chronic renal failure Status: Acute (2) CHF exacerbation Status: Acute Comment Review of Relevant I have reviewed the following items viviane (where applicable) has been applied. Labs Laboratory Tests Test 04/17/19 08:55 04/17/19 11:59 04/17/19 16:39 04/17/19 20:45 White Blood Count 7.4 x10^3/uL (4.0-11.0) Red Blood Count 3.14 x10^6/uL (4.30-5.70) Hemoglobin 9.8 g/dL (13.0-17.5) Hematocrit 29.4 % (39.0-53.0) Mean Corpuscular Volume 94 fL (79-100) Mean Corpuscular Hemoglobin 31 pg (25-35) Mean Corpuscular Hemoglobin Concent 33 g/dL (31-37) Red Cell Distribution Width 16.6 % (11.5-14.5) Platelet Count 280 x10^3/uL (140-400) Neutrophils (%) (Auto) 68 % (31-73) Lymphocytes (%) (Auto) 16 % (24-48) Monocytes (%) (Auto) 10 % (0-9) Eosinophils (%) (Auto) 5 % (0-3) Basophils (%) (Auto) 1 % (0-3) Neutrophils # (Auto) 5.0 x10^3/uL (1.8-7.7) Lymphocytes # (Auto) 1.2 x10^3/uL (1.0-4.8) Monocytes # (Auto) 0.8 x10^3/uL (0.0-1.1) Eosinophils # (Auto) 0.4 x10^3/uL (0.0-0.7) Basophils # (Auto) 0.1 x10^3/uL (0.0-0.2) Sodium Level 134 mmol/L (136-145) Potassium Level 4.7 mmol/L (3.5-5.1) Chloride Level 98 mmol/L (98-107) Carbon Dioxide Level 24 mmol/L (21-32) Anion Gap 12 (6-14) Blood Urea Nitrogen 71 mg/dL (8-26) Creatinine 4.2 mg/dL (0.7-1.3) Estimated GFR (Cockcroft-Gault) 13.8 Glucose Level 113 mg/dL (70-99) Calcium Level 9.8 mg/dL (8.5-10.1) Phosphorus Level 4.4 mg/dL (2.6-4.7) Albumin 3.4 g/dL (3.4-5.0) Glucose (Fingerstick) 117 mg/dL (70-99) 107 mg/dL (70-99) 157 mg/dL (70-99) Test 04/18/19 05:50 04/18/19 07:12 04/18/19 11:13 04/18/19 21:12 White Blood Count 8.0 x10^3/uL (4.0-11.0) Red Blood Count 3.07 x10^6/uL (4.30-5.70) Hemoglobin 9.5 g/dL (13.0-17.5) Hematocrit 28.9 % (39.0-53.0) Mean Corpuscular Volume 94 fL (79-100) Mean Corpuscular Hemoglobin 31 pg (25-35) Mean Corpuscular Hemoglobin Concent 33 g/dL (31-37) Red Cell Distribution Width 16.7 % (11.5-14.5) Platelet Count 293 x10^3/uL (140-400) Neutrophils (%) (Auto) 70 % (31-73) Lymphocytes (%) (Auto) 14 % (24-48) Monocytes (%) (Auto) 11 % (0-9) Eosinophils (%) (Auto) 4 % (0-3) Basophils (%) (Auto) 1 % (0-3) Neutrophils # (Auto) 5.6 x10^3/uL (1.8-7.7) Lymphocytes # (Auto) 1.1 x10^3/uL (1.0-4.8) Monocytes # (Auto) 0.9 x10^3/uL (0.0-1.1) Eosinophils # (Auto) 0.3 x10^3/uL (0.0-0.7) Basophils # (Auto) 0.0 x10^3/uL (0.0-0.2) Prothrombin Time 18.4 SEC (11.7-14.0) Prothromb Time International Ratio 1.6 (0.8-1.1) Activated Partial Thromboplast Time 43 SEC (24-38) Sodium Level 135 mmol/L (136-145) Potassium Level 4.6 mmol/L (3.5-5.1) Chloride Level 99 mmol/L (98-107) Carbon Dioxide Level 24 mmol/L (21-32) Anion Gap 12 (6-14) Blood Urea Nitrogen 70 mg/dL (8-26) Creatinine 4.0 mg/dL (0.7-1.3) Estimated GFR (Cockcroft-Gault) 14.6 Glucose Level 108 mg/dL (70-99) Calcium Level 9.5 mg/dL (8.5-10.1) Glucose (Fingerstick) 108 mg/dL (70-99) 112 mg/dL (70-99) 145 mg/dL (70-99) Test 04/19/19 07:22 Glucose (Fingerstick) 123 mg/dL (70-99) Laboratory Tests Test 04/18/19 11:13 04/18/19 21:12 04/19/19 07:22 Glucose (Fingerstick) 112 mg/dL (70-99) 145 mg/dL (70-99) 123 mg/dL (70-99) Medications Current Medications Ondansetron HCl (Zofran) 4 mg PRN Q8HRS PRN IV NAUSEA/VOMITING; Start 04/13/19 at 16:30; Stop 04/14/19 at 16:29; Status DC Fentanyl Citrate (Fentanyl 2ml Vial) 50 mcg PRN Q1HR PRN IV PAIN; Start 04/13/19 at 16:30; Stop 04/14/19 at 16:29; Status DC Acetaminophen (Tylenol) 650 mg PRN Q4HRS PRN PO FEVER; Start 04/13/19 at 16:30; Stop 04/14/19 at 16:29; Status DC Nitroglycerin (Nitrostat) 0.4 mg PRN Q5MIN PRN SL CHEST PAIN; Start 04/13/19 at 16:30; Stop 04/14/19 at 16:29; Status DC Acetaminophen (Tylenol) 500 mg PRN Q6HRS PRN PO MILD PAIN / TEMP; Start 04/13/19 at 16:45 Allopurinol (Zyloprim) 200 mg DAILY PO Last administered on 04/18/19 19:15; Start 04/14/19 at 09:00 Amlodipine Besylate (Norvasc) 10 mg DAILY PO Last administered on 04/18/19 19:16; Start 04/14/19 at 09:00 Apixaban (Eliquis) 5 mg BID PO Last administered on 04/16/19at 08:46; Start 04/13/19 at 21:00; Stop 04/16/19 at 15:58; Status DC Clopidogrel Bisulfate (Plavix) 75 mg DAILY PO Last administered on 04/18/19 19:15; Start 04/14/19 at 09:00 EZETIMIBE (Zetia) 10 mg DAILY PO Last administered on 04/18/19 19:15; Start 04/14/19 at 09:00 Furosemide (Lasix) 40 mg DAILY PO ; Start 04/14/19 at 09:00; Stop 04/13/19 at 18:31; Status DC Gemfibrozil (Lopid) 600 mg DAILY PO Last administered on 04/18/19 19:30; Start 04/14/19 at 09:00 Acetaminophen/ Hydrocodone Bitart (Lortab 10/325) 1 tab PRN Q6HRS PRN PO PAIN MOD TO SEV Last administered on 04/18/19 22:18; Start 04/13/19 at 16:45 Metoprolol Succinate (Toprol Xl) 100 mg DAILY PO Last administered on 04/18/19 19:15; Start 04/14/19 at 09:00 Polyethylene Glycol (miraLAX PACKET) 17 gm DAILY PO Last administered on 04/18/19 19:14; Start 04/14/19 at 09:00 Tamsulosin HCl (Flomax) 0.4 mg HS PO Last administered on 04/18/19 21:26; Start 04/13/19 at 21:00 Ascorbic Acid (Vitamin C) 1,000 mg DAILY PO Last administered on 04/18/19 19:15; Start 04/14/19 at 09:00 Pantoprazole Sodium (Protonix) 40 mg DAILYAC PO Last administered on 04/18/19 19:15; Start 04/14/19 at 07:30 Multivitamins (Thera M Plus) 1 tab DAILY PO Last administered on 04/18/19 19:15; Start 04/14/19 at 09:00 Non-Formulary Medication (Ubidecarenone (Co Q-10)) 200 mg DAILY PO ; Start 04/14/19 at 09:00; Status UNV Multivitamins/ Minerals (I-Rehana) 1 tab DAILY PO Last administered on 04/18/19 19:15; Start 04/14/19 at 09:00 Temazepam (Restoril) 7.5 mg PRN QHS PRN PO INSOMNIA Last administered on 04/18 22:18; Start 04/13/19 at 16:45 Ondansetron HCl (Zofran) 4 mg PRN Q6HRS PRN IVP NAUSEA/VOMITING; Start 04/13/19 at 16:45 Albuterol/ Ipratropium (Duoneb) 3 ml RTQID NEB ; Start 04/13/19 at 20:00; Stop 04/14/19 at 21:07; Status DC Guaifenesin (Robitussin Dm) 10 ml PRN Q6HRS PRN PO COUGH; Start 04/13/19 at 16:45 Info (Anti-Coagulation Monitoring By Pharmacy) 1 each PRN DAILY PRN MC SEE COMMENTS Last administered on 04/16/19at 11:08; Start 04/13/19 at 17:00 Sodium Chloride 1,000 ml @ 100 mls/hr 1X ONCE IV Last administered on 04/13/19 19:58; Start 04/13/19 at 18:30; Stop 04/14/19 at 04:29; Status DC Albuterol Sulfate (Ventolin Neb Soln) 2.5 mg PRN QID PRN NEB SHORTNESS OF BREATH; Start 04/14/19 at 21:15 Hydralazine HCl (Apresoline Inj) 10 mg PRN Q4HRS PRN IVP ELEVATED BP, SEE COMMENTS; Start 04/16/19 at 03:30 Cellulose (Surgicel Hemostat 4x8) 1 each 1X ONCE TP Last administered on 04/17/19at 00:57; Start 04/17/19 at 01:00; Stop 04/17/19 at 01:01; Status DC Thrombin 20,000 unit 1X ONCE TP ; Start 04/17/19 at 03:00; Stop 04/17/19 at 03:01; Status DC Lidocaine HCl (Lidocaine 1% 20ml Vial) 20 ml STK-MED ONCE .ROUTE ; Start 04/17/19 at 12:56; Stop 04/17/19 at 12:56; Status DC Heparin Sodium/ Sodium Chloride (HEPARIN for ARTERIAL LINE FLUSH) 1,000 unit 1X ONCE IART Last administered on 04/17/19at 13:00; Start 04/17/19 at 13:00; Stop 04/17/19 at 13:01; Status DC Heparin Sodium/ Sodium Chloride (HEPARIN for ARTERIAL LINE FLUSH) 1,000 unit 1X ONCE IART ; Start 04/17/19 at 13:00; Stop 04/17/19 at 13:01; Status DC Midazolam HCl (Versed) 2 mg 1X ONCE IV Last administered on 04/17/19at 13:00; Start 04/17/19 at 13:00; Stop 04/17/19 at 13:01; Status DC Fentanyl Citrate (Fentanyl 2ml Vial) 100 mcg 1X ONCE IV Last administered on 04/17/19at 13:00; Start 04/17/19 at 13:00; Stop 04/17/19 at 13:01; Status DC Lidocaine HCl (Lidocaine 1% 20ml Vial) 20 ml 1X ONCE INJ Last administered on 04/17/19at 13:00; Start 04/17/19 at 13:00; Stop 04/17/19 at 13:01; Status DC Heparin Sodium/ Sodium Chloride 500 ml @ As Directed STK-MED ONCE .ROUTE ; Start 04/17/19 at 12:56; Stop 04/17/19 at 12:56; Status DC Fentanyl Citrate (Fentanyl 2ml Vial) 100 mcg STK-MED ONCE .ROUTE ; Start 04/17/19 at 13:03; Stop 04/17/19 at 13:03; Status DC Midazolam HCl (Versed) 2 mg STK-MED ONCE .ROUTE ; Start 04/17/19 at 13:03; Stop 04/17/19 at 13:04; Status DC Lidocaine/ Epinephrine (LIDOCAINE 1%-EPI 1:100,000 Multi-Dose) 20 ml STK-MED ONCE .ROUTE ; Start 04/18/19 at 09:50; Stop 04/18/19 at 09:50; Status DC Midazolam HCl (Versed) 2 mg 1X ONCE IV Last administered on 04/18/19at 10:00; Start 04/18/19 at 10:00; Stop 04/18/19 at 10:01; Status DC Fentanyl Citrate (Fentanyl 2ml Vial) 100 mcg 1X ONCE IV Last administered on 04/18/19at 10:00; Start 04/18/19 at 10:00; Stop 04/18/19 at 10:01; Status DC Lidocaine/ Epinephrine (LIDOCAINE 1%-EPI 1:100,000 Multi-Dose) 20 ml 1X ONCE SQ Last administered on 04/18/19at 10:00; Start 04/18/19 at 10:00; Stop 04/18/19 at 10:01; Status DC Vancomycin HCl 250 ml @ 250 mls/hr 1X ONCE IV Last administered on 04/18/19at 10:00; Start 04/18/19 at 10:00; Stop 04/18/19 at 10:59; Status DC Vancomycin HCl 250 ml @ As Directed STK-MED ONCE .ROUTE ; Start 04/18/19 at 09:58; Stop 04/18/19 at 09:59; Status DC Midazolam HCl (Versed) 2 mg STK-MED ONCE .ROUTE ; Start 04/18/19 at 09:58; Stop 04/18/19 at 09:59; Status DC Fentanyl Citrate (Fentanyl 2ml Vial) 100 mcg STK-MED ONCE .ROUTE ; Start 04/18/19 at 09:58; Stop 04/18/19 at 09:59; Status DC Vancomycin HCl 250 ml @ As Directed STK-MED ONCE .ROUTE ; Start 04/18/19 at 10:08; Stop 04/18/19 at 10:08; Status DC Sodium Chloride 1,000 ml @ 1,000 mls/hr Q1H PRN IV hypotension; Start 04/18/19 at 14:22; Stop 04/18/19 at 20:21; Status DC Acetaminophen (Tylenol) 500 mg 1X PRN PRN PO MILD PAIN / TEMP; Start 04/18/19 at 14:30; Stop 04/19/19 at 14:29 Diphenhydramine HCl (Benadryl) 25 mg 1X PRN PRN IV ITCHING; Start 04/18/19 at 14:30; Stop 04/19/19 at 14:29 Diphenhydramine HCl (Benadryl) 25 mg 1X PRN PRN IV ITCHING; Start 04/18/19 at 14:30; Stop 04/19/19 at 14:29 Sodium Chloride 1,000 ml @ 400 mls/hr Q2H30M PRN IV PATENCY; Start 04/18/19 at 14:22; Stop 04/19/19 at 02:21; Status DC Info (PHARMACY MONITORING -- do not chart) 1 each PRN DAILY PRN MC SEE COMMENTS; Start 04/18/19 at 14:30 Apixaban (Eliquis) 5 mg BID PO ; Start 04/19/19 at 09:00 Hydromorphone HCl (Dilaudid) 0.5 mg 1X ONCE IV Last administered on 04/18/19at 20:05; Start 04/18/19 at 19:30; Stop 04/18/19 at 19:31; Status DC Active Scripts Active Acetaminophen 500 Mg Tablet 500 Mg PO PRN Q6HRS PRN 14 Days Eliquis (Apixaban) 5 Mg Tablet 5 Mg PO BID 30 Days Reported Miralax (Polyethylene Glycol 3350) 17 Gm Powd.pack 1 Pkt PO DAILY Hydrocodone-Apap 10-325 (Hydrocodone Bit/Acetaminophen) 1 Tab Tablet 1 Tab PO PRN Q6HRS PRN Preservision Areds Tablet (Vit A/Vit C/Vit E/Zinc/Copper) 1 Each Tablet 1 Each PO DAILY Allopurinol 300 Mg Tablet 300 Mg PO DAILY Furosemide 40 Mg Tablet 40 Mg PO DAILY Toprol Xl (Metoprolol Succinate) 50 Mg Tab.er.24h 100 Mg PO DAILY Flomax (Tamsulosin Hcl) 0.4 Mg Cap.er.24h 1 Cap PO HS Amlodipine Besylate 5 Mg Tablet 10 Mg PO DAILY Testosterone Cypionate 200 Mg/1 Ml Vial 1 Ml IM [id number] Clopidogrel (Clopidogrel Bisulfate) 75 Mg Tablet 1 Tab PO DAILY Vitamin C (Ascorbic Acid) 1,000 Mg Tablet 1,000 Mg PO DAILY Co Q-10 (Ubidecarenone) 200 Mg Capsule 200 Mg PO DAILY Krill Oil 500 Mg Capsule 500 Mg PO Multi-Vitamin Daily (Multivitamin) 1 Each Tablet 1 Each PO DAILY Gemfibrozil 600 Mg Tablet 1 Tab PO DAILY Zetia (Ezetimibe) 10 Mg Tablet 1 Tab PO DAILY Losartan Potassium 100 Mg Tablet 100 Mg PO DAILY Nexium Capsule (Esomeprazole Magnesium) 40 Mg Capsule. 1 Cap PO DAILY Vitals/I & O Vital Sign - Last 24 Hours 04/18/19 04/18/19 04/18/19 04/18/19 08:06 09:52 10:00 10:49 Pulse 89 Resp 16 15 Pulse Ox 92 96 O2 Delivery Room Air Room Air Nasal Cannula O2 Flow Rate 2.0 2.0 04/18/19 04/18/19 04/18/19 04/18/19 11:07 14:15 16:29 18:29 Pulse 93 B/P (MAP) 136/64 (88) Pulse Ox 96 96 96 O2 Delivery Room Air Room Air Room Air O2 Flow Rate 2.0 2.0 2.0 04/18/19 04/18/19 04/18/19 04/18/19 19:15 19:16 19:44 20:00 Temp 97.6 97.6 Pulse 93 93 92 Resp 18 B/P (MAP) 136/64 136/64 159/64 (95) Pulse Ox 94 O2 Delivery Room Air Room Air O2 Flow Rate 2.0 04/18/19 04/18/19 04/18/19 04/18/19 20:05 20:14 22:18 23:15 Temp 97.9 97.9 Pulse 86 Resp 14 20 18 18 B/P (MAP) 119/72 (88) Pulse Ox 95 O2 Delivery Room Air Nasal Cannula O2 Flow Rate 2.0 04/19/19 02:51 Temp 97.5 97.5 Pulse 91 Resp 16 B/P (MAP) 132/59 (83) Pulse Ox 90 O2 Delivery Room Air Intake and Output 04/18/19 04/18/19 04/19/19 15:00 23:00 07:00 Intake Total 240 ml 500 ml 700 ml Output Total 300 ml 600 ml Balance 240 ml 200 ml 100 ml SUHAS BASS MD Apr 19, 2019 08:05
[2019-04-19 08:50] LABS: CREATININE 2.9 mg/dL (0.7-1.3); GFR 21.2; POTASSIUM 4.3 mmol/L (3.5-5.1)
[2019-04-19] MEDS: POLYETHYLENE GLYCOL 3350 17 GM PACKET. PO SCH (09:48)
[2019-04-19] MEDS: MULTIVITAMIN with MINERAL TABLET. PO SCH (09:49)
[2019-04-19] MEDS: APIXABAN 5 MG TABLET. PO SCH ×2 (09:49→21:00)
[2019-04-19] MEDS: CLOPIDOGREL BISULFATE 75 MG TABLET PO SCH (09:49)
[2019-04-19] MEDS: METOPROLOL SUCC 24HR ER 100 MG TAB.ER.24H. PO SCH (09:49)
[2019-04-19] MEDS: PANTOPRAZOLE 40 MG TABLET.DR. PO SCH (09:49)
[2019-04-19] MEDS: MULTIVITAMIN I-VITE TABLET. PO SCH (09:49)
[2019-04-19] MEDS: ALLOPURINOL 100 MG TABLET. PO SCH (09:50)
[2019-04-19] MEDS: ASCORBIC ACID 500 MG TABLET PO SCH (09:50)
[2019-04-19] MEDS: amLODIPine BESYLATE 10 MG TABLET PO SCH (09:50)
[2019-04-19] MEDS: EZETIMIBE 10 MG TABLET. PO SCH (09:50)
[2019-04-19] MEDS: GEMFIBROZIL 600 MG TABLET. PO SCH (09:50)
--- NOTE | 2019-04-19 10:04 | PDOC ---
SUBJECTIVE ROS HD yesterday - treatment, he states he thinks he is feeling more alert today, breathing better OBJECTIVE Vital Signs Vital Signs Date Time Temp Pulse Resp B/P (MAP) Pulse Ox O2 Delivery O2 Flow Rate FiO2 04/19/19 09:50 80 149/66 04/19/19 07:00 98.2 16 92 Room Air 98.2 04/18/19 23:15 2.0 I & 0 Intake and Output 04/19/19 07:00 Intake Total 1440 ml Output Total 900 ml Balance 540 ml Intake Oral 1440 ml Output Urine Total 900 ml PHYSICAL EXAM Physical Exam General appearance NAD HEENT: Right eye blind(Traumatic), OM moist Neck supple Cardiovascular: S1, S2, RRR Pulmonary: Clear to auscultation bilaterally, No accessory muscle use Abdomen: nontender, and nondistended. Extremities: Significant LE edema , has compression stockings NeUro - Grossly normal No Rangel, No SP/CVA tenderness Skin No Rash or any other lesion DIAGNOSIS/ASSESSMENT Assessment & Plan DANNA - ? New onset ESRD UA Unremarkable,Renal US earlier this month unremarkable initiated on HD , [facility] Monitor for recovery to baseline , avoid aggressive UF, 1 Lt as tolerated Access- Tunneled Dialysis catheter Awaiting chair time CKD stage 3 - Follows with Dr. Stewart as op Baseline as OP 1,6- 2.20 Acute on Chronic systolic/diastolic CHF ICM; LVEF30% per echo in august RHC for Vol status done on 04/17Acute on chronic decompensated diastolic HF. PCWP 19 mm Hg. 2. Secondary pulmonary HTN. mPA 39 mm Hg Normal cardiac output. 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 CAD: CABGx2 in 2010. Recent MPI Hypertension; controlled Diabetes, II PAD -left foot ulcer: s/p percutaneous revascularization 04/2018. Pulmonary HTN; PAP 50 mmHg Right renal simple cyst at the interpolar region laterally is present measuring 2.6 cm x 2.7 cm x 2.6 cm COMMENT/RELEVANT DATA Meds Current Medications Medications (Trade) Dose Ordered Sig/Cha Start Time Stop Time Status Last Admin Dose Admin Acetaminophen (Tylenol) 500 mg 1X PRN PRN 04/18/19 14:30 04/19/19 14:29 Acetaminophen/ Hydrocodone Bitart (Lortab ) 1 tab PRN Q6HRS PRN 04/13/19 16:45 04/18/19 22:18 1 TAB Albuterol Sulfate (Ventolin Neb Soln) 2.5 mg PRN QID PRN 04/14/19 21:15 Albuterol/ Ipratropium (Duoneb) 3 ml RTQID 04/13/19 20:00 04/14/19 21:07 DC Allopurinol (Zyloprim) 200 mg DAILY 04/14/19 09:00 04/19/19 09:50 200 MG Amlodipine Besylate (Norvasc) 10 mg DAILY 04/14/19 09:00 04/19/19 09:50 10 MG Apixaban (Eliquis) 5 mg BID 04/19/19 09:00 04/19/19 09:49 5 MG Ascorbic Acid (Vitamin C) 1,000 mg DAILY 04/14/19 09:00 04/19/19 09:50 1,000 MG Cellulose (Surgicel Hemostat 4x8) 1 each 1X ONCE 04/17/19 01:00 04/17/19 01:01 DC 04/17/19 00:57 1 EACH Clopidogrel Bisulfate (Plavix) 75 mg DAILY 04/14/19 09:00 04/19/19 09:49 75 MG Diphenhydramine HCl (Benadryl) 25 mg 1X PRN PRN 04/18/19 14:30 04/19/19 14:29 EZETIMIBE (Zetia) 10 mg DAILY 04/14/19 09:00 04/19/19 09:50 10 MG Fentanyl Citrate (Fentanyl 2ml Vial) 100 mcg STK-MED ONCE 04/18/19 09:58 04/18/19 09:59 DC Furosemide (Lasix) 40 mg DAILY 04/14/19 09:00 04/13/19 18:31 DC Gemfibrozil (Lopid) 600 mg DAILY 04/14/19 09:00 04/19/19 09:50 600 MG Guaifenesin (Robitussin Dm) 10 ml PRN Q6HRS PRN 04/13/19 16:45 Heparin Sodium/ Sodium Chloride 500 ml @ As Directed STK-MED ONCE 04/17/19 12:56 04/17/19 12:56 DC Heparin Sodium/ Sodium Chloride (HEPARIN for ARTERIAL LINE FLUSH) 1,000 unit 1X ONCE 04/17/19 13:00 04/17/19 13:01 DC Hydralazine HCl (Apresoline Inj) 10 mg PRN Q4HRS PRN 04/16/19 03:30 Hydromorphone HCl (Dilaudid) 0.5 mg 1X ONCE 04/18/19 19:30 04/18/19 19:31 DC 04/18/19 20:05 0.5 MG Info (Anti-Coagulation Monitoring By Pharmacy) 1 each PRN DAILY PRN 04/13/19 17:00 04/16/19 11:08 1 EACH Info (PHARMACY MONITORING -- do not chart) 1 each PRN DAILY PRN 04/18/19 14:30 Lidocaine HCl (Lidocaine 1% 20ml Vial) 20 ml 1X ONCE 04/17/19 13:00 04/17/19 13:01 DC 04/17/19 13:00 19 ML Lidocaine/ Epinephrine (LIDOCAINE 1%-EPI 1:100,000 Multi-Dose) 20 ml 1X ONCE 04/18/19 10:00 04/18/19 10:01 DC 04/18/19 10:00 10 ML Metoprolol Succinate (Toprol Xl) 100 mg DAILY 04/14/19 09:00 04/19/19 09:49 100 MG Midazolam HCl (Versed) 2 mg STK-MED ONCE 04/18/19 09:58 04/18/19 09:59 DC Multivitamins (Thera M Plus) 1 tab DAILY 04/14/19 09:00 04/19/19 09:49 1 TAB Multivitamins/ Minerals (I-Rehana) 1 tab DAILY 04/14/19 09:00 04/19/19 09:49 1 TAB Nitroglycerin (Nitrostat) 0.4 mg PRN Q5MIN PRN 04/13/19 16:30 04/14/19 16:29 DC Non-Formulary Medication (Ubidecarenone (Co Q-10)) 200 mg DAILY 04/14/19 09:00 UNV Ondansetron HCl (Zofran) 4 mg PRN Q6HRS PRN 04/13/19 16:45 Pantoprazole Sodium (Protonix) 40 mg DAILYAC 04/14/19 07:30 04/19/19 09:49 40 MG Polyethylene Glycol (miraLAX PACKET) 17 gm DAILY 04/14/19 09:00 04/19/19 09:48 17 GM Sodium Chloride 1,000 ml @ 400 mls/hr Q2H30M PRN 04/18/19 14:22 04/19/19 02:21 DC Tamsulosin HCl (Flomax) 0.4 mg HS 04/13/19 21:00 04/18/19 21:26 0.4 MG Temazepam (Restoril) 7.5 mg PRN QHS PRN 04/13/19 16:45 04/18/19 22:18 7.5 MG Thrombin 20,000 unit 1X ONCE 04/17/19 03:00 04/17/19 03:01 DC Vancomycin HCl 250 ml @ As Directed STK-MED ONCE 04/18/19 10:08 04/18/19 10:08 DC Lab Laboratory Tests Test 04/18/19 11:13 04/18/19 21:12 04/19/19 07:22 04/19/19 08:10 Glucose (Fingerstick) 112 mg/dL (70-99) 145 mg/dL (70-99) 123 mg/dL (70-99) Sodium Level 138 mmol/L (136-145) Potassium Level 4.3 mmol/L (3.5-5.1) Chloride Level 100 mmol/L (98-107) Carbon Dioxide Level 27 mmol/L (21-32) Anion Gap 11 (6-14) Blood Urea Nitrogen 40 mg/dL (8-26) Creatinine 2.9 mg/dL (0.7-1.3) Estimated GFR (Cockcroft-Gault) 21.2 Glucose Level 127 mg/dL (70-99) Calcium Level 9.0 mg/dL (8.5-10.1) Results All relevant outside records, renal labs, imaging studies, telemetry/EKG's were reviewed. JOSÉ MIGUEL MUNOZ MD Apr 19, 2019 10:04
[2019-04-19 11:00] VITALS: BP 151/67
--- NOTE | 2019-04-19 11:08 | NUR ---
SS following up with discharge planning. SS phoned and faxed dialysis flow sheet and serology labs to [facility], ; fax [phone]. SS was notified that referral has been sent to [facility] [place], [id number] [place] [id number], ; fax [phone], and [facility] and provide final chair time for pt. SS will await final chair time and will continue to follow for discharge planning.
[2019-04-19] MEDS: HYDROcodone/APAP 10/325 1 TAB TABLET PO PRN (13:30)
[2019-04-19 15:00] VITALS: BP 133/62
--- NOTE | 2019-04-19 16:40 | NUR ---
DR. DANIEL HERE AND VISITED WITH PATIENT AND FAMILY MEMBERS AT THE BEDSIDE, REMOVED FIRST LAYER OF PATIENTS DRESSING ON THE LEFT NECK AREA AND INFORMED THIS CLINICAL DATA MANAGER TO CHANGE DRESSING AFTER SOAKING AREA WITH SALINE SOLUTION, AREA SOAKED WITH SALINE SOLUTION AND THEN ALLOWED TO SIT FOR APPROX 5 MINS, REPEATED X2 AND THEN DRESSING REMOVED, VPAD APPLIED X2 AND GUAZE/MEDIPORE TAPE APPLIED AFTER 10-15MINS. OF PRESSURE APPLIED PER THIS CLINICAL DATA MANAGER, TRICKLES OB LOOD STILL NOTICED AFTER DRESSING APPLIED, WILL NOTIFY VASCULAR SURGEON.
[2019-04-19] MEDS ORDERED: LIDOCAINE 1%/EPI 1:100,000 20 ML VIAL. INJ ONE (18:15)
[2019-04-19] MEDS ORDERED: LIDOCAINE 2%/EPI 1:100,000 20 ML VIAL. IJ ONE (18:15)
--- NOTE | 2019-04-19 18:30 | NUR ---
DR. MAYBERRY NOTIFIED AND HERE TO SEE THE PATIENT, LIDOCAINE 1% AND EPINEPHRINE INJECTION GIVEN AND PETROLEUM GAUZE 4X4 AND MEDIPORE TAPE APPLIED, NO DRAINAGE/BLEEDING NOTICED AT THIS TIME.
[2019-04-19 19:00] VITALS: BP 142/65
--- NOTE | 2019-04-19 20:49 | PDOC ---
Provider Note Provider Note Pt is status post left CEA 2 days ago. Persistent skin edge bleeding O: vss, neuro baseline bleeding from skin edge; injected with lidocaine with epinephrine. Bleeding stopped; dressing applied A: stable with skin edge bleeding due to coagulopathy (plavix and eliquis) P: will continue to follow. JHON MAYBERRY II, MD Apr 19, 2019 20:49
[2019-04-19] MEDS: TAMSULOSIN 0.4 MG CAP.ER.24H. PO SCH (21:00)
[2019-04-19 23:00] VITALS: BP 150/69
[2019-04-20 03:00] VITALS: BP 151/65
[2019-04-20] MEDS: HYDROcodone/APAP 10/325 1 TAB TABLET PO PRN ×4 (03:56→23:07)
[2019-04-20 07:00] VITALS: BP 165/72
[2019-04-20] MEDS: PANTOPRAZOLE 40 MG TABLET.DR. PO SCH (07:30)
--- NOTE | 2019-04-20 08:14 | PDOC ---
PROGRESS NOTES Chief Complaint Chief Complaint A/P: Acute on chronic leg edema CHF exacerbation with elevated BNP and interstitial edema on CXR Recent CEA left done by DR Pickard 04/02- ff up vacs sx NOv 4 (already set up- healing very well per acct) Obesity BMI 32 DANNA on CKD - CREAT JUMPED TO 4, Hypertension Normocytic anemia Generalized weakness Paroxysmal A. 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 cr= 1.5 10/01 Diabetes type 2 Dysphagia pulmonary hypertension, mod-severe PLAN: CVC bed, 2 mN I and O Lasix on hold RENAL AND CARD CONSULTS PT.OT d/w in room 36 min pt exam, chart review, > 50% of time spent with exam, chart review, pt care coordination History of Present Illness History of Present Illness Mr Bardales is a 79-year-old M w/ PMHx hypertension, CHF, PVD, carotid disease s/p recent left CEA on 04/02, and chronic kidney disease, stage 4. He was admitted with increasing shortness of breath and lower extremity edema. He was felt to be in decompensated congestive cardiomyopathy. Seen by cardiology and nephrology in consultation. 04/16: He still has ROBERTS walking 20 feet in the hallway and orthopnea. CR 3.7 today (4.3 on admit). D/w nephrology to continue holding diuretics and cardiology that volume status with a RHC would be appropriate. He is amenable to the likely inevitability of renal replacement therapy given his Cr was 1.7 earlier this year, but has been progressively worsening since September. Has a small hematoma on his left neck, stable. 04/17: Overnight was picking at his CEA site and it began oozing blood, soaked multiple pressures dressings and surgicell. Required topical thrombin for hemostasis. Cr 4.2, BUN 71 today. RHC with RVSP 39 04/18: S/p tunneled HD cath right now. Feeling ok today. No further bleeding from left neck. Cr 4 today. 1st session of dialysis 04/19: He feels wiped out after dialysis yesterday. A bit weak. Cr 2.9, BUN 40 now. Plans for dialysis tomorrow. Bleeding overnight from left CEA site, had epi injection per Dr. Ashton. Today seen on dialysis feeling improved. Renal labs improved. Has outpatient dialysis chair. He and his are concerned he has not been out of bed in the past 2 days and still has LE swelling. Plans for vascular surgery repeat eval in AM. Hopefully home in the next day or so. Vitals Vitals Vital Signs Date Time Temp Pulse Resp B/P (MAP) Pulse Ox O2 Delivery O2 Flow Rate FiO2 04/20/19 03:00 98.3 85 18 151/65 (93) 91 Room Air 98.3 04/19/19 20:00 2.0 Physical Exam General: Alert, Oriented X3, Cooperative, No acute distress, Other (left neck incision clean and dry) Heart: Regular rate Lungs: Clear Abdomen: Normal bowel sounds, Soft, No tenderness, No masses Extremities: No clubbing, No cyanosis, Normal pulses, Other (2+ pitting edema) Skin: No rashes Labs LABS Laboratory Tests Test 04/19/19 11:40 04/19/19 16:39 04/19/19 20:56 04/20/19 07:36 Glucose (Fingerstick) 150 mg/dL (70-99) 146 mg/dL (70-99) 186 mg/dL (70-99) 108 mg/dL (70-99) Assessment and Plan Assessmemt and Plan Problems Medical Problems: (1) Acute on chronic renal failure Status: Acute (2) CHF exacerbation Status: Acute Comment Review of Relevant I have reviewed the following items viviane (where applicable) has been applied. Labs Laboratory Tests Test 04/18/19 11:13 04/18/19 14:30 04/18/19 21:12 04/19/19 07:22 Glucose (Fingerstick) 112 mg/dL (70-99) 145 mg/dL (70-99) 123 mg/dL (70-99) Hepatitis B Surface Antigen Nonreactive (Nonreactive) Hepatitis B Surface Antibody Nonreactive Hepatitis B Core Total Antibody Nonreactive (Nonreactive) Hepatitis B Core IgM Antibody Nonreactive (Nonreactive) Test 04/19/19 08:10 04/19/19 11:40 04/19/19 16:39 04/19/19 20:56 Sodium Level 138 mmol/L (136-145) Potassium Level 4.3 mmol/L (3.5-5.1) Chloride Level 100 mmol/L (98-107) Carbon Dioxide Level 27 mmol/L (21-32) Anion Gap 11 (6-14) Blood Urea Nitrogen 40 mg/dL (8-26) Creatinine 2.9 mg/dL (0.7-1.3) Estimated GFR (Cockcroft-Gault) 21.2 Glucose Level 127 mg/dL (70-99) Calcium Level 9.0 mg/dL (8.5-10.1) Glucose (Fingerstick) 150 mg/dL (70-99) 146 mg/dL (70-99) 186 mg/dL (70-99) Test 04/20/19 07:36 Glucose (Fingerstick) 108 mg/dL (70-99) Laboratory Tests Test 04/19/19 11:40 04/19/19 16:39 04/19/19 20:56 04/20/19 07:36 Glucose (Fingerstick) 150 mg/dL (70-99) 146 mg/dL (70-99) 186 mg/dL (70-99) 108 mg/dL (70-99) Medications Current Medications Ondansetron HCl (Zofran) 4 mg PRN Q8HRS PRN IV NAUSEA/VOMITING; Start 04/13/19 at 16:30; Stop 04/14/19 at 16:29; Status DC Fentanyl Citrate (Fentanyl 2ml Vial) 50 mcg PRN Q1HR PRN IV PAIN; Start 04/13/19 at 16:30; Stop 04/14/19 at 16:29; Status DC Acetaminophen (Tylenol) 650 mg PRN Q4HRS PRN PO FEVER; Start 04/13/19 at 16:30; Stop 04/14/19 at 16:29; Status DC Nitroglycerin (Nitrostat) 0.4 mg PRN Q5MIN PRN SL CHEST PAIN; Start 04/13/19 at 16:30; Stop 04/14/19 at 16:29; Status DC Acetaminophen (Tylenol) 500 mg PRN Q6HRS PRN PO MILD PAIN / TEMP; Start 04/13/19 at 16:45 Allopurinol (Zyloprim) 200 mg DAILY PO Last administered on 04/19/19at 09:50; Start 04/14/19 at 09:00 Amlodipine Besylate (Norvasc) 10 mg DAILY PO Last administered on 04/19/19at 09:50; Start 04/14/19 at 09:00 Apixaban (Eliquis) 5 mg BID PO Last administered on 04/16/19 08:46; Start 04/13/19 at 21:00; Stop 04/16/19 at 15:58; Status DC Clopidogrel Bisulfate (Plavix) 75 mg DAILY PO Last administered on 04/19/19 09:49; Start 04/14/19 at 09:00 EZETIMIBE (Zetia) 10 mg DAILY PO Last administered on 04/19/19 09:50; Start 04/14/19 at 09:00 Furosemide (Lasix) 40 mg DAILY PO ; Start 04/14/19 at 09:00; Stop 04/13/19 at 18:31; Status DC Gemfibrozil (Lopid) 600 mg DAILY PO Last administered on 04/19/19 09:50; Start 04/14/19 at 09:00 Acetaminophen/ Hydrocodone Bitart (Lortab 10/325) 1 tab PRN Q6HRS PRN PO PAIN MOD TO SEV Last administered on 04/20/19 04:37; Start 04/13/19 at 16:45 Metoprolol Succinate (Toprol Xl) 100 mg DAILY PO Last administered on 03/22 09:49; Start 04/14/19 at 09:00 Polyethylene Glycol (miraLAX PACKET) 17 gm DAILY PO Last administered on 04/19/19 09:48; Start 04/14/19 at 09:00 Tamsulosin HCl (Flomax) 0.4 mg HS PO Last administered on 04/19/19 21:00; Start 04/13/19 at 21:00 Ascorbic Acid (Vitamin C) 1,000 mg DAILY PO Last administered on 04/19/19 09:50; Start 04/14/19 at 09:00 Pantoprazole Sodium (Protonix) 40 mg DAILYAC PO Last administered on 04/19/19 09:49; Start 04/14/19 at 07:30 Multivitamins (Thera M Plus) 1 tab DAILY PO Last administered on 04/19/19 09:49; Start 04/14/19 at 09:00 Non-Formulary Medication (Ubidecarenone (Co Q-10)) 200 mg DAILY PO ; Start 04/14/19 at 09:00; Status UNV Multivitamins/ Minerals (I-Rehana) 1 tab DAILY PO Last administered on 04/19/19at 09:49; Start 04/14/19 at 09:00 Temazepam (Restoril) 7.5 mg PRN QHS PRN PO INSOMNIA Last administered on 04/18/19at 22:18; Start 04/13/19 at 16:45 Ondansetron HCl (Zofran) 4 mg PRN Q6HRS PRN IVP NAUSEA/VOMITING; Start 04/13/19 at 16:45 Albuterol/ Ipratropium (Duoneb) 3 ml RTQID NEB ; Start 04/13/19 at 20:00; Stop 04/14/19 at 21:07; Status DC Guaifenesin (Robitussin Dm) 10 ml PRN Q6HRS PRN PO COUGH Last administered on 04/20/19at 03:55; Start 04/13/19 at 16:45 Info (Anti-Coagulation Monitoring By Pharmacy) 1 each PRN DAILY PRN MC SEE COMMENTS Last administered on 04/16/19at 11:08; Start 04/13/19 at 17:00 Sodium Chloride 1,000 ml @ 100 mls/hr 1X ONCE IV Last administered on 04/13/19at 19:58; Start 04/13/19 at 18:30; Stop 04/14/19 at 04:29; Status DC Albuterol Sulfate (Ventolin Neb Soln) 2.5 mg PRN QID PRN NEB SHORTNESS OF BREATH; Start 04/14/19 at 21:15 Hydralazine HCl (Apresoline Inj) 10 mg PRN Q4HRS PRN IVP ELEVATED BP, SEE COMMENTS; Start 04/16/19 at 03:30 Cellulose (Surgicel Hemostat 4x8) 1 each 1X ONCE TP Last administered on 04/17/19at 00:57; Start 04/17/19 at 01:00; Stop 04/17/19 at 01:01; Status DC Thrombin 20,000 unit 1X ONCE TP ; Start 04/17/19 at 03:00; Stop 04/17/19 at 03:01; Status DC Lidocaine HCl (Lidocaine 1% 20ml Vial) 20 ml STK-MED ONCE .ROUTE ; Start 04/17/19 at 12:56; Stop 04/17/19 at 12:56; Status DC Heparin Sodium/ Sodium Chloride (HEPARIN for ARTERIAL LINE FLUSH) 1,000 unit 1X ONCE IART Last administered on 04/17/19at 13:00; Start 04/17/19 at 13:00; Stop 04/17/19 at 13:01; Status DC Heparin Sodium/ Sodium Chloride (HEPARIN for ARTERIAL LINE FLUSH) 1,000 unit 1X ONCE IART ; Start 04/17/19 at 13:00; Stop 04/17/19 at 13:01; Status DC Midazolam HCl (Versed) 2 mg 1X ONCE IV Last administered on 04/17/19at 13:00; Start 04/17/19 at 13:00; Stop 04/17/19 at 13:01; Status DC Fentanyl Citrate (Fentanyl 2ml Vial) 100 mcg 1X ONCE IV Last administered on 04/17/19at 13:00; Start 04/17/19 at 13:00; Stop 04/17/19 at 13:01; Status DC Lidocaine HCl (Lidocaine 1% 20ml Vial) 20 ml 1X ONCE INJ Last administered on 04/17/19at 13:00; Start 04/17/19 at 13:00; Stop 04/17/19 at 13:01; Status DC Heparin Sodium/ Sodium Chloride 500 ml @ As Directed STK-MED ONCE .ROUTE ; Start 04/17/19 at 12:56; Stop 04/17/19 at 12:56; Status DC Fentanyl Citrate (Fentanyl 2ml Vial) 100 mcg STK-MED ONCE .ROUTE ; Start 04/17/19 at 13:03; Stop 04/17/19 at 13:03; Status DC Midazolam HCl (Versed) 2 mg STK-MED ONCE .ROUTE ; Start 04/17/19 at 13:03; Stop 04/17/19 at 13:04; Status DC Lidocaine/ Epinephrine (LIDOCAINE 1%-EPI 1:100,000 Multi-Dose) 20 ml STK-MED ONCE .ROUTE ; Start 04/18/19 at 09:50; Stop 04/18/19 at 09:50; Status DC Midazolam HCl (Versed) 2 mg 1X ONCE IV Last administered on 04/18/19at 10:00; Start 04/18/19 at 10:00; Stop 04/18/19 at 10:01; Status DC Fentanyl Citrate (Fentanyl 2ml Vial) 100 mcg 1X ONCE IV Last administered on 04/18/19at 10:00; Start 04/18/19 at 10:00; Stop 04/18/19 at 10:01; Status DC Lidocaine/ Epinephrine (LIDOCAINE 1%-EPI 1:100,000 Multi-Dose) 20 ml 1X ONCE SQ Last administered on 04/18/19at 10:00; Start 04/18/19 at 10:00; Stop 04/18/19 at 10:01; Status DC Vancomycin HCl 250 ml @ 250 mls/hr 1X ONCE IV Last administered on 04/18/19at 10:00; Start 04/18/19 at 10:00; Stop 04/18/19 at 10:59; Status DC Vancomycin HCl 250 ml @ As Directed STK-MED ONCE .ROUTE ; Start 04/18/19 at 09:58; Stop 04/18/19 at 09:59; Status DC Midazolam HCl (Versed) 2 mg STK-MED ONCE .ROUTE ; Start 04/18/19 at 09:58; Stop 04/18/19 at 09:59; Status DC Fentanyl Citrate (Fentanyl 2ml Vial) 100 mcg STK-MED ONCE .ROUTE ; Start 04/18/19 at 09:58; Stop 04/18/19 at 09:59; Status DC Vancomycin HCl 250 ml @ As Directed STK-MED ONCE .ROUTE ; Start 04/18/19 at 10:08; Stop 04/18/19 at 10:08; Status DC Sodium Chloride 1,000 ml @ 1,000 mls/hr Q1H PRN IV hypotension; Start 04/18/19 at 14:22; Stop 04/18/19 at 20:21; Status DC Acetaminophen (Tylenol) 500 mg 1X PRN PRN PO MILD PAIN / TEMP; Start 04/18/19 at 14:30; Stop 04/19/19 at 14:29; Status DC Diphenhydramine HCl (Benadryl) 25 mg 1X PRN PRN IV ITCHING; Start 04/18/19 at 14:30; Stop 04/19/19 at 14:29; Status DC Diphenhydramine HCl (Benadryl) 25 mg 1X PRN PRN IV ITCHING; Start 04/18/19 at 14:30; Stop 04/19/19 at 14:29; Status DC Sodium Chloride 1,000 ml @ 400 mls/hr Q2H30M PRN IV PATENCY; Start 04/18/19 at 14:22; Stop 04/19/19 at 02:21; Status DC Info (PHARMACY MONITORING -- do not chart) 1 each PRN DAILY PRN MC SEE COMMENTS; Start 04/18/19 at 14:30 Apixaban (Eliquis) 5 mg BID PO Last administered on 04/19/19at 21:00; Start 04/19/19 at 09:00 Hydromorphone HCl (Dilaudid) 0.5 mg 1X ONCE IV Last administered on 04/18/19at 20:05; Start 04/18/19 at 19:30; Stop 04/18/19 at 19:31; Status DC Lidocaine/ Epinephrine (LIDOCAINE 1%-EPI 1:100,000 Multi-Dose) 20 ml 1X ONCE INJ ; Start 04/19/19 at 18:15; Stop 04/19/19 at 18:16; Status DC Lidocaine/ Epinephrine (LIDOCAINE 2%-EPI 1:100,000 multi-dose) 20 ml 1X ONCE IJ ; Start 04/19/19 at 18:15; Stop 04/19/19 at 18:16; Status DC Active Scripts Active Acetaminophen 500 Mg Tablet 500 Mg PO PRN Q6HRS PRN 14 Days Eliquis (Apixaban) 5 Mg Tablet 5 Mg PO BID 30 Days Reported Miralax (Polyethylene Glycol 3350) 17 Gm Powd.pack 1 Pkt PO DAILY Hydrocodone-Apap 10-325 (Hydrocodone Bit/Acetaminophen) 1 Tab Tablet 1 Tab PO PRN Q6HRS PRN Preservision Areds Tablet (Vit A/Vit C/Vit E/Zinc/Copper) 1 Each Tablet 1 Each PO DAILY Allopurinol 300 Mg Tablet 300 Mg PO DAILY Furosemide 40 Mg Tablet 40 Mg PO DAILY Toprol Xl (Metoprolol Succinate) 50 Mg Tab.er.24h 100 Mg PO DAILY Flomax (Tamsulosin Hcl) 0.4 Mg Cap.er.24h 1 Cap PO HS Amlodipine Besylate 5 Mg Tablet 10 Mg PO DAILY Testosterone Cypionate 200 Mg/1 Ml Vial 1 Ml IM [id number] Clopidogrel (Clopidogrel Bisulfate) 75 Mg Tablet 1 Tab PO DAILY Vitamin C (Ascorbic Acid) 1,000 Mg Tablet 1,000 Mg PO DAILY Co Q-10 (Ubidecarenone) 200 Mg Capsule 200 Mg PO DAILY Krill Oil 500 Mg Capsule 500 Mg PO Multi-Vitamin Daily (Multivitamin) 1 Each Tablet 1 Each PO DAILY Gemfibrozil 600 Mg Tablet 1 Tab PO DAILY Zetia (Ezetimibe) 10 Mg Tablet 1 Tab PO DAILY Losartan Potassium 100 Mg Tablet 100 Mg PO DAILY Nexium Capsule (Esomeprazole Magnesium) 40 Mg Capsule. 1 Cap PO DAILY Vitals/I & O Vital Sign - Last 24 Hours 04/19/19 04/19/19 04/19/19 04/19/19 09:49 09:50 11:00 13:30 Temp 98.4 98.4 Pulse 80 80 79 Resp 16 19 B/P (MAP) 149/66 149/66 151/67 (95) Pulse Ox 91 19 O2 Delivery Room Air Room Air 04/19/19 04/19/19 04/19/19 04/19/19 14:30 15:00 19:00 20:00 Temp 98.2 98.1 98.2 98.1 Pulse 80 78 Resp 20 16 18 B/P (MAP) 133/62 (85) 142/65 (90) Pulse Ox 93 91 94 O2 Delivery Room Air Room Air Room Air Room Air O2 Flow Rate 2.0 04/19/19 04/20/19 23:00 03:00 Temp 98.6 98.3 98.6 98.3 Pulse 91 85 Resp 18 18 B/P (MAP) 150/69 (96) 151/65 (93) Pulse Ox 91 91 O2 Delivery Room Air Room Air Intake and Output 04/19/19 04/19/19 04/20/19 14:59 22:59 06:59 Intake Total 250 ml Output Total 300 ml 600 ml Balance -300 ml 250 ml -600 ml SUHAS BASS MD Apr 20, 2019 08:14
[2019-04-20] MEDS ORDERED: IV NORMAL SALINE 1000ML BAG 1,000 ML IV PRN ×2 (08:28)
[2019-04-20] MEDS ORDERED: ACETAMINOPHEN 500 MG TABLET PO PRN (08:30)
[2019-04-20] MEDS ORDERED: diphenhydrAMINE 50 MG/ML VIAL IV PRN ×2 (08:30)
[2019-04-20] MEDS ORDERED: DIALYSIS PATIENT. MC PRN (08:30)
[2019-04-20] MEDS: MULTIVITAMIN I-VITE TABLET. PO SCH (09:00)
[2019-04-20] MEDS: amLODIPine BESYLATE 10 MG TABLET PO SCH (09:00)
[2019-04-20] MEDS: CLOPIDOGREL BISULFATE 75 MG TABLET PO SCH (09:00)
[2019-04-20] MEDS: APIXABAN 5 MG TABLET. PO SCH ×2 (09:00→19:53)
[2019-04-20] MEDS: GEMFIBROZIL 600 MG TABLET. PO SCH (09:00)
[2019-04-20] MEDS: MULTIVITAMIN with MINERAL TABLET. PO SCH (09:00)
[2019-04-20] MEDS: EZETIMIBE 10 MG TABLET. PO SCH (09:00)
[2019-04-20] MEDS: POLYETHYLENE GLYCOL 3350 17 GM PACKET. PO SCH (09:00)
[2019-04-20] MEDS: METOPROLOL SUCC 24HR ER 100 MG TAB.ER.24H. PO SCH (09:00)
[2019-04-20] MEDS: ALLOPURINOL 100 MG TABLET. PO SCH (09:00)
[2019-04-20] MEDS: ASCORBIC ACID 500 MG TABLET PO SCH (09:00)
--- NOTE | 2019-04-20 09:23 | PDOC ---
Provider Note Provider Note Vascular Patient seen while on dialysis. Pt is status post left CEA with Persistent skin edge bleeding O: Awake and alert VSS Neck dressing dry, removed, incision intact with no active bleeding. Office Coordinator equal, speech clear, no facial asymmetry, moves all extremities A: Bleeding from skin edge; injected with lidocaine with epinephrine last PM by Dr. Ashton. Bleeding stopped; dressing remains dry and stable with no skin edge bleeding P: Will continue to follow. Okay to resume Eliquis today. Called to patient's room, patient bleeding from left neck incision. Attempted to apply silver nitrate with no success. Applied surgicel fibrillar, pressure dressing and ice pack. Instructed nurse to not remove dressing until seen by Dr. Pickard. Recommend hold Eliquis and Plavix until patient seen by Dr. Pickard. Ele[facility] HOB for next 24 hours. Will have nylon suture and local anesthetic available in case needed. ANDREW RIVERO APRN Apr 20, 2019 09:23
[2019-04-20 09:35] LABS: CALCIUM 9.2 mg/dL (8.5-10.1); CREATININE 2.6 mg/dL (0.7-1.3); POTASSIUM 3.9 mmol/L (3.5-5.1)
--- NOTE | 2019-04-20 12:14 | NUR ---
SS following up with discharge planning. Dialysis chair time received for OPHD. Pt's chair time is scheduled at [facility], [address] [place] [address], ; fax [phone], T, TH, SAT, at 1130. Pt will need to arrive for first chair time on 04/21/2019 at 1115. Pt and spouse will need to come to facility today to complete paperwork prior to coming in on 04/21/2019. Pt and pt's spouse notified.
[2019-04-20] MEDS ORDERED: HYDR-2769 PO (12:52)
[2019-04-20] MEDS ORDERED: SURGICEL FIBRILLAR 1X2 EACH. TP ONE (14:00)
[2019-04-20] MEDS ORDERED: SURGICEL HEMOSTAT 4X8 EACH. TP ONE (14:00)
[2019-04-20] MEDS ORDERED: SILVER NITRATE STICK TP ONE (14:15)
--- NOTE | 2019-04-20 14:29 | PDOC ---
SUBJECTIVE ROS Per another episode of significant bleeding last night from the Lt carotid incision site Pt seen on Hd, denies any complaints OBJECTIVE Vital Signs Vital Signs Date Time Temp Pulse Resp B/P (MAP) Pulse Ox O2 Delivery O2 Flow Rate FiO2 04/20/19 07:00 98.1 91 18 165/72 (103) 93 Room Air 98.1 04/19/19 20:00 2.0 I & 0 Intake and Output 04/20/19 07:00 Intake Total 250 ml Output Total 900 ml Balance -650 ml Intake Oral 250 ml Output Urine Total 900 ml # Voids 2 PHYSICAL EXAM Physical Exam General appearance NAD HEENT: Right eye blind(Traumatic), OM moist Neck supple Cardiovascular: S1, S2, RRR Pulmonary: Clear to auscultation bilaterally, No accessory muscle use Abdomen: nontender, and nondistended. Extremities: Significant LE edema , has compression stockings NeUro - Grossly normal No Rangel, No SP/CVA tenderness Skin No Rash or any other lesion DIAGNOSIS/ASSESSMENT Assessment & Plan DANNA - ? New onset ESRD UA Unremarkable,Renal US earlier this month unremarkable initiated on HD , 1 st treatment 04/18 , 2 nd on 04/20 , will re-eval labs on tuesday Assigned OP chair time TTS Monitor for recovery to baseline , avoid aggressive UF, 1 Lt as tolerated Access- Tunneled Dialysis catheter CKD stage 3 - Follows with Dr. Stewart as op Baseline as OP 1,6- 2.20 Acute on Chronic systolic/diastolic CHF ICM; LVEF30% per echo in august RHC for Vol status done on 04/17Acute on chronic decompensated diastolic HF. PCWP 19 mm Hg. 2. Secondary pulmonary HTN. mPA 39 mm Hg Normal cardiac output. Carotid artery disease; Symptomatic high-grade left internal carotid stenosis s/p Left carotid endarterectomy with eversion technique earlier in mar 2019 Bleeding from skin edge; injected with lidocaine with epinephrine Poli. 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 CAD: CABGx2 in 2010. Recent MPI Hypertension; controlled Diabetes, II PAD -left foot ulcer: s/p percutaneous revascularization 04/2018. Pulmonary HTN; PAP 50 mmHg Right renal simple cyst at the interpolar region laterally is present measuring 2.6 cm x 2.7 cm x 2.6 cm COMMENT/RELEVANT DATA Meds Current Medications Medications (Trade) Dose Ordered Sig/Cha Start Time Stop Time Status Last Admin Dose Admin Acetaminophen (Tylenol) 500 mg 1X PRN PRN 04/20/19 08:30 04/21/19 08:29 Acetaminophen/ Hydrocodone Bitart (Lortab ) 1 tab PRN Q6HRS PRN 04/13/19 16:45 04/20/19 04:37 1 TAB Albuterol Sulfate (Ventolin Neb Soln) 2.5 mg PRN QID PRN 04/14/19 21:15 Albuterol/ Ipratropium (Duoneb) 3 ml RTQID 04/13/19 20:00 04/14/19 21:07 DC Allopurinol (Zyloprim) 200 mg DAILY 04/14/19 09:00 04/19/19 09:50 200 MG Amlodipine Besylate (Norvasc) 10 mg DAILY 04/14/19 09:00 04/19/19 09:50 10 MG Apixaban (Eliquis) 5 mg BID 04/19/19 09:00 04/19/19 21:00 5 MG Ascorbic Acid (Vitamin C) 1,000 mg DAILY 04/14/19 09:00 04/19/19 09:50 1,000 MG Cellulose (Surgicel Fibrillar 1x2) 1 each 1X ONCE 04/20/19 14:00 04/20/19 14:01 DC 04/20/19 14:22 1 EACH Cellulose (Surgicel Hemostat 4x8) 1 each 1X ONCE 04/20/19 14:00 04/20/19 13:57 DC Clopidogrel Bisulfate (Plavix) 75 mg DAILY 04/14/19 09:00 04/19/19 09:49 75 MG Diphenhydramine HCl (Benadryl) 25 mg 1X PRN PRN 04/20/19 08:30 04/21/19 08:29 EZETIMIBE (Zetia) 10 mg DAILY 04/14/19 09:00 04/19/19 09:50 10 MG Fentanyl Citrate (Fentanyl 2ml Vial) 100 mcg STK-MED ONCE 04/18/19 09:58 04/18/19 09:59 DC Furosemide (Lasix) 40 mg DAILY 04/14/19 09:00 04/13/19 18:31 DC Gemfibrozil (Lopid) 600 mg DAILY 04/14/19 09:00 04/19/19 09:50 600 MG Guaifenesin (Robitussin Dm) 10 ml PRN Q6HRS PRN 04/13/19 16:45 04/20/19 03:55 10 ML Heparin Sodium/ Sodium Chloride 500 ml @ As Directed STK-MED ONCE 04/17/19 12:56 04/17/19 12:56 DC Heparin Sodium/ Sodium Chloride (HEPARIN for ARTERIAL LINE FLUSH) 1,000 unit 1X ONCE 04/17/19 13:00 04/17/19 13:01 DC Hydralazine HCl (Apresoline Inj) 10 mg PRN Q4HRS PRN 04/16/19 03:30 Hydromorphone HCl (Dilaudid) 0.5 mg 1X ONCE 04/18/19 19:30 04/18/19 19:31 DC 04/18/19 20:05 0.5 MG Info (Anti-Coagulation Monitoring By Pharmacy) 1 each PRN DAILY PRN 04/13/19 17:00 04/16/19 11:08 1 EACH Info (PHARMACY MONITORING -- do not chart) 1 each PRN DAILY PRN 04/20/19 08:30 Lidocaine HCl (Lidocaine 1% 20ml Vial) 20 ml 1X ONCE 04/17/19 13:00 04/17/19 13:01 DC 04/17/19 13:00 19 ML Lidocaine/ Epinephrine (LIDOCAINE 1%-EPI 1:100,000 Multi-Dose) 20 ml 1X ONCE 04/19/19 18:15 04/19/19 18:16 DC Lidocaine/ Epinephrine (LIDOCAINE 2%-EPI 1:100,000 multi-dose) 20 ml 1X ONCE 04/19/19 18:15 04/19/19 18:16 DC Metoprolol Succinate (Toprol Xl) 100 mg DAILY 04/14/19 09:00 04/19/19 09:49 100 MG Midazolam HCl (Versed) 2 mg STK-MED ONCE 04/18/19 09:58 04/18/19 09:59 DC Multivitamins (Thera M Plus) 1 tab DAILY 04/14/19 09:00 04/19/19 09:49 1 TAB Multivitamins/ Minerals (I-Rehana) 1 tab DAILY 04/14/19 09:00 04/19/19 09:49 1 TAB Nitroglycerin (Nitrostat) 0.4 mg PRN Q5MIN PRN 04/13/19 16:30 04/14/19 16:29 DC Non-Formulary Medication (Ubidecarenone (Co Q-10)) 200 mg DAILY 04/14/19 09:00 UNV Ondansetron HCl (Zofran) 4 mg PRN Q6HRS PRN 04/13/19 16:45 Pantoprazole Sodium (Protonix) 40 mg DAILYAC 04/14/19 07:30 04/19/19 09:49 40 MG Polyethylene Glycol (miraLAX PACKET) 17 gm DAILY 04/14/19 09:00 04/19/19 09:48 17 GM Silver Nitrate/ Potassium Nitrate 1 each 1X ONCE 04/20/19 14:15 04/20/19 14:16 DC 04/20/19 14:22 1 EACH Sodium Chloride 1,000 ml @ 400 mls/hr Q2H30M PRN 04/20/19 08:28 04/20/19 20:27 Tamsulosin HCl (Flomax) 0.4 mg HS 04/13/19 21:00 04/19/19 21:00 0.4 MG Temazepam (Restoril) 7.5 mg PRN QHS PRN 04/13/19 16:45 04/18/19 22:18 7.5 MG Thrombin 20,000 unit 1X ONCE 04/17/19 03:00 04/17/19 03:01 DC Vancomycin HCl 250 ml @ As Directed STK-MED ONCE 04/18/19 10:08 04/18/19 10:08 DC Lab Laboratory Tests Test 04/19/19 16:39 04/19/19 20:56 04/20/19 07:36 04/20/19 09:00 Glucose (Fingerstick) 146 mg/dL (70-99) 186 mg/dL (70-99) 108 mg/dL (70-99) Sodium Level 137 mmol/L (136-145) Potassium Level 3.9 mmol/L (3.5-5.1) Chloride Level 99 mmol/L (98-107) Carbon Dioxide Level 29 mmol/L (21-32) Anion Gap 9 (6-14) Blood Urea Nitrogen 38 mg/dL (8-26) Creatinine 2.6 mg/dL (0.7-1.3) Estimated GFR (Cockcroft-Gault) 24.0 Glucose Level 106 mg/dL (70-99) Calcium Level 9.2 mg/dL (8.5-10.1) Results All relevant outside records, renal labs, imaging studies, telemetry/EKG's were reviewed. JOSÉ MIGUEL MUNOZ MD Apr 20, 2019 14:29
[2019-04-20 15:00] VITALS: BP 149/69
--- NOTE | 2019-04-20 15:32 | PDOC ---
KEENAN LORD FACILITIES DIRECTOR 04/20/19 1532: CARDIO Progress Notes Date and Time Date of Service 04/20/2019 Time of Evaluation 1450 Subjective Subjective: No Chest Pain, No shortness of breath, No Palpitations Vitals Vitals Vital Signs Date Time Temp Pulse Resp B/P (MAP) Pulse Ox O2 Delivery O2 Flow Rate FiO2 04/20/19 07:00 98.1 91 18 165/72 (103) 93 Room Air 98.1 04/19/19 20:00 2.0 Weight Weight [ ] Input and Output Intake and Output Intake and Output 04/20/19 07:00 Intake Total 250 ml Output Total 900 ml Balance -650 ml Intake Oral 250 ml Output Urine Total 900 ml # Voids 2 Laboratory Labs Laboratory Tests Test 04/19/19 16:39 04/19/19 20:56 04/20/19 07:36 04/20/19 09:00 Glucose (Fingerstick) 146 mg/dL (70-99) 186 mg/dL (70-99) 108 mg/dL (70-99) Sodium Level 137 mmol/L (136-145) Potassium Level 3.9 mmol/L (3.5-5.1) Chloride Level 99 mmol/L (98-107) Carbon Dioxide Level 29 mmol/L (21-32) Anion Gap 9 (6-14) Blood Urea Nitrogen 38 mg/dL (8-26) Creatinine 2.6 mg/dL (0.7-1.3) Estimated GFR (Cockcroft-Gault) 24.0 Glucose Level 106 mg/dL (70-99) Calcium Level 9.2 mg/dL (8.5-10.1) Physical Exam HEENT: Neck Supple W Full Motion Chest: Symmetric LUNGS: Other (diminished bases) Heart: S1S2, murmurs (2/6 systolic murmur ), irregularly irregular Abdomen: Soft N/T Extremities: Other (3+ bilateral LE edema ) Neurology: alert, oriented, follow commands Assessment Assessment 1. Acute on chronic decompensated diastolic/systolic CHF: LVEF 30%. 2. DANNA on CKD; CR worsening. HD to be initiated 3. PAFIB; Presently on afib 4. HTN: labile episodes. 5. CAD: CABGx2 in 2010 6. Hyperlipidemia; statin 7. s/p LCEA: incision region still having bleed 8. Diabetes, II Recommendations 1. Hold eliquis for now till vascular srugery clears. Stop plavix and will start on ASA for now and could place back on plavix once bleeding is bteeding is better. Discussed with vascular 2. It appears pt has not received his BB. Will discuss with RN. 3. Fluid offloading via HD RONALDO DANIEL MD 04/21/19 0756: CARDIO Progress Notes Plan Plan Late entry for 04/20/2019 Patient seen and examined. Agree with above nurse practitioner note. We will hold his anticoagulation and continue aspirin only. Await vascular surgery input. Supportive care for now. Continue hemodialysis. KEENAN LORD APRN Apr 20, 2019 15:32 RONALDO DANIEL MD Apr 21, 2019 07:56
[2019-04-20 19:20] VITALS: BP 131/62
[2019-04-20] MEDS: TAMSULOSIN 0.4 MG CAP.ER.24H. PO SCH (20:46)
[2019-04-20 23:24] VITALS: BP 140/68
[2019-04-21 03:15] VITALS: BP 131/56
[2019-04-21 04:03] LABS: CREATININE 2.4 mg/dL (0.7-1.3); GFR 26.3
[2019-04-21 07:00] VITALS: BP 147/73
[2019-04-21] MEDS: ASPIRIN ENTERIC COATED 81 MG TABLET.DR. PO SCH (08:00)
[2019-04-21] MEDS: POLYETHYLENE GLYCOL 3350 17 GM PACKET. PO SCH (08:35)
[2019-04-21] MEDS: EZETIMIBE 10 MG TABLET. PO SCH (08:35)
[2019-04-21] MEDS: amLODIPine BESYLATE 10 MG TABLET PO SCH (08:35)
[2019-04-21] MEDS: ASCORBIC ACID 500 MG TABLET PO SCH (08:35)
[2019-04-21] MEDS: MULTIVITAMIN I-VITE TABLET. PO SCH (08:36)
[2019-04-21] MEDS: PANTOPRAZOLE 40 MG TABLET.DR. PO SCH (08:36)
[2019-04-21] MEDS: HYDROcodone/APAP 10/325 1 TAB TABLET PO PRN ×3 (08:36→22:53)
[2019-04-21] MEDS: ALLOPURINOL 100 MG TABLET. PO SCH (08:36)
[2019-04-21] MEDS: MULTIVITAMIN with MINERAL TABLET. PO SCH (08:36)
[2019-04-21] MEDS: METOPROLOL SUCC 24HR ER 100 MG TAB.ER.24H. PO SCH (08:36)
[2019-04-21] MEDS: GEMFIBROZIL 600 MG TABLET. PO SCH (08:36)
[2019-04-21] MEDS: APIXABAN 5 MG TABLET. PO SCH ×2 (09:00→20:49)
[2019-04-21] MEDS ORDERED: METOPROLOL TARTRATE 5 MG/5 ML VIAL. IVP PRN (09:00)
--- NOTE | 2019-04-21 09:34 | PDOC ---
PROGRESS NOTES Chief Complaint Chief Complaint A/P: Acute on chronic leg edema CHF exacerbation with elevated BNP and interstitial edema on CXR Recent CEA left done by DR Pickard 04/02- ff up vacs sx NOv 4 (already set up- healing very well per acct) Obesity BMI 32 DANNA on CKD - CREAT JUMPED TO 4, Hypertension Normocytic anemia Generalized weakness Paroxysmal A. 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 cr= 1.5 10/01 Diabetes type 2 Dysphagia pulmonary hypertension, mod-severe PLAN: CVC bed, 2 mN I and O Lasix on hold RENAL AND CARD CONSULTS PT.OT d/w in room 36 min pt exam, chart review, > 50% of time spent with exam, chart review, pt care coordination History of Present Illness History of Present Illness Mr Bardales is a 79-year-old M w/ PMHx hypertension, CHF, PVD, carotid disease s/p recent left CEA on 04/02, and chronic kidney disease, stage 4. He was admitted with increasing shortness of breath and lower extremity edema. He was felt to be in decompensated congestive cardiomyopathy. Seen by cardiology and nephrology in consultation. 04/16: He still has ROBERTS walking 20 feet in the hallway and orthopnea. CR 3.7 today (4.3 on admit). D/w nephrology to continue holding diuretics and cardiology that volume status with a RHC would be appropriate. He is amenable to the likely inevitability of renal replacement therapy given his Cr was 1.7 earlier this year, but has been progressively worsening since September. Has a small hematoma on his left neck, stable. 04/17: Overnight was picking at his CEA site and it began oozing blood, soaked multiple pressures dressings and surgicell. Required topical thrombin for hemostasis. Cr 4.2, BUN 71 today. RHC with RVSP 39 04/18: S/p tunneled HD cath right now. Feeling ok today. No further bleeding from left neck. Cr 4 today. 1st session of dialysis 04/19: He feels wiped out after dialysis yesterday. A bit weak. Cr 2.9, BUN 40 now. Plans for dialysis tomorrow. 04/20: Bleeding overnight from left CEA site, had epi injection per Dr. Ashton. Today seen on dialysis feeling improved. Renal labs improved. Has outpatient dialysis chair. He and his are concerned he has not been out of bed in the past 2 days and still has LE swelling. Plans for vascular surgery repeat eval in AM. Hopefully home in the next day or so. Overnight had further bleeding at CEA site. He has been feeling better with dialysis sessions, less short of breath. Still swollen. Feeling weak, wishes to work with therapy. Vitals Vitals Vital Signs Date Time Temp Pulse Resp B/P (MAP) Pulse Ox O2 Delivery O2 Flow Rate FiO2 04/21/19 08:36 102 147/73 04/21/19 08:36 18 93 Room Air 2.0 04/21/19 07:00 98.3 98.3 Physical Exam General: Alert, Oriented X3, Cooperative, No acute distress, Other (left neck incision clean and dry) Heart: Regular rate Lungs: Clear Abdomen: Normal bowel sounds, Soft, No tenderness, No masses Extremities: No clubbing, No cyanosis, Normal pulses, Other (2+ pitting edema) Skin: No rashes Labs LABS Laboratory Tests Test 04/20/19 16:47 04/20/19 20:53 04/21/19 03:30 04/21/19 07:08 Glucose (Fingerstick) 133 mg/dL (70-99) 171 mg/dL (70-99) 116 mg/dL (70-99) Sodium Level 136 mmol/L (136-145) Potassium Level 4.0 mmol/L (3.5-5.1) Chloride Level 99 mmol/L (98-107) Carbon Dioxide Level 30 mmol/L (21-32) Anion Gap 7 (6-14) Blood Urea Nitrogen 26 mg/dL (8-26) Creatinine 2.4 mg/dL (0.7-1.3) Estimated GFR (Cockcroft-Gault) 26.3 Glucose Level 140 mg/dL (70-99) Calcium Level 9.0 mg/dL (8.5-10.1) Assessment and Plan Assessmemt and Plan Problems Medical Problems: (1) Acute on chronic renal failure Status: Acute (2) CHF exacerbation Status: Acute Comment Review of Relevant I have reviewed the following items viviane (where applicable) has been applied. Labs Laboratory Tests Test 04/19/19 11:40 04/19/19 16:39 04/19/19 20:56 04/20/19 07:36 Glucose (Fingerstick) 150 mg/dL (70-99) 146 mg/dL (70-99) 186 mg/dL (70-99) 108 mg/dL (70-99) Test 04/20/19 09:00 04/20/19 16:47 04/20/19 20:53 04/21/19 03:30 Sodium Level 137 mmol/L (136-145) 136 mmol/L (136-145) Potassium Level 3.9 mmol/L (3.5-5.1) 4.0 mmol/L (3.5-5.1) Chloride Level 99 mmol/L (98-107) 99 mmol/L (98-107) Carbon Dioxide Level 29 mmol/L (21-32) 30 mmol/L (21-32) Anion Gap 9 (6-14) 7 (6-14) Blood Urea Nitrogen 38 mg/dL (8-26) 26 mg/dL (8-26) Creatinine 2.6 mg/dL (0.7-1.3) 2.4 mg/dL (0.7-1.3) Estimated GFR (Cockcroft-Gault) 24.0 26.3 Glucose Level 106 mg/dL (70-99) 140 mg/dL (70-99) Calcium Level 9.2 mg/dL (8.5-10.1) 9.0 mg/dL (8.5-10.1) Glucose (Fingerstick) 133 mg/dL (70-99) 171 mg/dL (70-99) Test 04/21/19 07:08 Glucose (Fingerstick) 116 mg/dL (70-99) Laboratory Tests Test 04/20/19 16:47 04/20/19 20:53 04/21/19 03:30 04/21/19 07:08 Glucose (Fingerstick) 133 mg/dL (70-99) 171 mg/dL (70-99) 116 mg/dL (70-99) Sodium Level 136 mmol/L (136-145) Potassium Level 4.0 mmol/L (3.5-5.1) Chloride Level 99 mmol/L (98-107) Carbon Dioxide Level 30 mmol/L (21-32) Anion Gap 7 (6-14) Blood Urea Nitrogen 26 mg/dL (8-26) Creatinine 2.4 mg/dL (0.7-1.3) Estimated GFR (Cockcroft-Gault) 26.3 Glucose Level 140 mg/dL (70-99) Calcium Level 9.0 mg/dL (8.5-10.1) Medications Current Medications Ondansetron HCl (Zofran) 4 mg PRN Q8HRS PRN IV NAUSEA/VOMITING; Start 04/13/19 at 16:30; Stop 04/14/19 at 16:29; Status DC Fentanyl Citrate (Fentanyl 2ml Vial) 50 mcg PRN Q1HR PRN IV PAIN; Start 04/13/19 at 16:30; Stop 04/14/19 at 16:29; Status DC Acetaminophen (Tylenol) 650 mg PRN Q4HRS PRN PO FEVER; Start 04/13/19 at 16:30; Stop 04/14/19 at 16:29; Status DC Nitroglycerin (Nitrostat) 0.4 mg PRN Q5MIN PRN SL CHEST PAIN; Start 04/13/19 at 16:30; Stop 04/14/19 at 16:29; Status DC Acetaminophen (Tylenol) 500 mg PRN Q6HRS PRN PO MILD PAIN / TEMP; Start 04/13/19 at 16:45 Allopurinol (Zyloprim) 200 mg DAILY PO Last administered on 04/21/19at 08:36; Start 04/14/19 at 09:00 Amlodipine Besylate (Norvasc) 10 mg DAILY PO Last administered on 04/21/19at 08:35; Start 04/14/19 at 09:00 Apixaban (Eliquis) 5 mg BID PO Last administered on 04/16/19at 08:46; Start 04/13/19 at 21:00; Stop 04/16/19 at 15:58; Status DC Clopidogrel Bisulfate (Plavix) 75 mg DAILY PO Last administered on 04/19/19at 09:49; Start 04/14/19 at 09:00; Stop 04/20/19 at 15:20; Status DC EZETIMIBE (Zetia) 10 mg DAILY PO Last administered on 04/21/19at 08:35; Start 04/14/19 at 09:00 Furosemide (Lasix) 40 mg DAILY PO ; Start 04/14/19 at 09:00; Stop 04/13/19 at 18:31; Status DC Gemfibrozil (Lopid) 600 mg DAILY PO Last administered on 04/21/19 08:36; Start 04/14/19 at 09:00 Acetaminophen/ Hydrocodone Bitart (Lortab 10/325) 1 tab PRN Q6HRS PRN PO PAIN MOD TO SEV Last administered on 04/21/19 08:36; Start 04/13/19 at 16:45 Metoprolol Succinate (Toprol Xl) 100 mg DAILY PO Last administered on 04/21/19 08:36; Start 04/14/19 at 09:00 Polyethylene Glycol (miraLAX PACKET) 17 gm DAILY PO Last administered on 04/21/19 08:35; Start 04/14/19 at 09:00 Tamsulosin HCl (Flomax) 0.4 mg HS PO Last administered on 04/20/19 20:46; Start 04/13/19 at 21:00 Ascorbic Acid (Vitamin C) 1,000 mg DAILY PO Last administered on 04/21/19 08:35; Start 04/14/19 at 09:00 Pantoprazole Sodium (Protonix) 40 mg DAILYAC PO Last administered on 04/21/19 08:36; Start 04/14/19 at 07:30 Multivitamins (Thera M Plus) 1 tab DAILY PO Last administered on 04/21/19 08:36; Start 04/14/19 at 09:00 Non-Formulary Medication (Ubidecarenone (Co Q-10)) 200 mg DAILY PO ; Start 04/14/19 at 09:00; Status UNV Multivitamins/ Minerals (I-Rehana) 1 tab DAILY PO Last administered on 04/21/19 08:36; Start 04/14/19 at 09:00 Temazepam (Restoril) 7.5 mg PRN QHS PRN PO INSOMNIA Last administered on 04/18/19 22:18; Start 04/13/19 at 16:45 Ondansetron HCl (Zofran) 4 mg PRN Q6HRS PRN IVP NAUSEA/VOMITING; Start 04/13/19 at 16:45 Albuterol/ Ipratropium (Duoneb) 3 ml RTQID NEB ; Start 04/13/19 at 20:00; Stop 04/14/19 at 21:07; Status DC Guaifenesin (Robitussin Dm) 10 ml PRN Q6HRS PRN PO COUGH Last administered on 04/20/19at 03:55; Start 04/13/19 at 16:45 Info (Anti-Coagulation Monitoring By Pharmacy) 1 each PRN DAILY PRN MC SEE COMMENTS Last administered on 04/16/19at 11:08; Start 04/13/19 at 17:00 Sodium Chloride 1,000 ml @ 100 mls/hr 1X ONCE IV Last administered on 04/13/19at 19:58; Start 04/13/19 at 18:30; Stop 04/14/19 at 04:29; Status DC Albuterol Sulfate (Ventolin Neb Soln) 2.5 mg PRN QID PRN NEB SHORTNESS OF BREATH; Start 04/14/19 at 21:15 Hydralazine HCl (Apresoline Inj) 10 mg PRN Q4HRS PRN IVP ELEVATED BP, SEE COMMENTS; Start 04/16/19 at 03:30 Cellulose (Surgicel Hemostat 4x8) 1 each 1X ONCE TP Last administered on 04/17/19at 00:57; Start 04/17/19 at 01:00; Stop 04/17/19 at 01:01; Status DC Thrombin 20,000 unit 1X ONCE TP ; Start 04/17/19 at 03:00; Stop 04/17/19 at 03:01; Status DC Lidocaine HCl (Lidocaine 1% 20ml Vial) 20 ml STK-MED ONCE .ROUTE ; Start 04/17/19 at 12:56; Stop 04/17/19 at 12:56; Status DC Heparin Sodium/ Sodium Chloride (HEPARIN for ARTERIAL LINE FLUSH) 1,000 unit 1X ONCE IART Last administered on 04/17/19at 13:00; Start 04/17/19 at 13:00; Stop 04/17/19 at 13:01; Status DC Heparin Sodium/ Sodium Chloride (HEPARIN for ARTERIAL LINE FLUSH) 1,000 unit 1X ONCE IART ; Start 04/17/19 at 13:00; Stop 04/17/19 at 13:01; Status DC Midazolam HCl (Versed) 2 mg 1X ONCE IV Last administered on 04/17/19at 13:00; Start 04/17/19 at 13:00; Stop 04/17/19 at 13:01; Status DC Fentanyl Citrate (Fentanyl 2ml Vial) 100 mcg 1X ONCE IV Last administered on 04/17/19at 13:00; Start 04/17/19 at 13:00; Stop 04/17/19 at 13:01; Status DC Lidocaine HCl (Lidocaine 1% 20ml Vial) 20 ml 1X ONCE INJ Last administered on 04/17/19at 13:00; Start 04/17/19 at 13:00; Stop 04/17/19 at 13:01; Status DC Heparin Sodium/ Sodium Chloride 500 ml @ As Directed STK-MED ONCE .ROUTE ; Start 04/17/19 at 12:56; Stop 04/17/19 at 12:56; Status DC Fentanyl Citrate (Fentanyl 2ml Vial) 100 mcg STK-MED ONCE .ROUTE ; Start 04/17/19 at 13:03; Stop 04/17/19 at 13:03; Status DC Midazolam HCl (Versed) 2 mg STK-MED ONCE .ROUTE ; Start 04/17/19 at 13:03; Stop 04/17/19 at 13:04; Status DC Lidocaine/ Epinephrine (LIDOCAINE 1%-EPI 1:100,000 Multi-Dose) 20 ml STK-MED ON CE .ROUTE ; Start 04/18/19 at 09:50; Stop 04/18/19 at 09:50; Status DC Midazolam HCl (Versed) 2 mg 1X ONCE IV Last administered on 04/18/19at 10:00; Start 04/18/19 at 10:00; Stop 04/18/19 at 10:01; Status DC Fentanyl Citrate (Fentanyl 2ml Vial) 100 mcg 1X ONCE IV Last administered on 04/18/19at 10:00; Start 04/18/19 at 10:00; Stop 04/18/19 at 10:01; Status DC Lidocaine/ Epinephrine (LIDOCAINE 1%-EPI 1:100,000 Multi-Dose) 20 ml 1X ONCE SQ Last administered on 04/18/19at 10:00; Start 04/18/19 at 10:00; Stop 04/18/19 at 10:01; Status DC Vancomycin HCl 250 ml @ 250 mls/hr 1X ONCE IV Last administered on 04/18/19at 10:00; Start 04/18/19 at 10:00; Stop 04/18/19 at 10:59; Status DC Vancomycin HCl 250 ml @ As Directed STK-MED ONCE .ROUTE ; Start 04/18/19 at 09:58; Stop 04/18/19 at 09:59; Status DC Midazolam HCl (Versed) 2 mg STK-MED ONCE .ROUTE ; Start 04/18/19 at 09:58; Stop 04/18/19 at 09:59; Status DC Fentanyl Citrate (Fentanyl 2ml Vial) 100 mcg STK-MED ONCE .ROUTE ; Start 04/18/19 at 09:58; Stop 04/18/19 at 09:59; Status DC Vancomycin HCl 250 ml @ As Directed STK-MED ONCE .ROUTE ; Start 04/18/19 at 10:08; Stop 04/18/19 at 10:08; Status DC Sodium Chloride 1,000 ml @ 1,000 mls/hr Q1H PRN IV hypotension; Start 04/18/19 at 14:22; Stop 04/18/19 at 20:21; Status DC Acetaminophen (Tylenol) 500 mg 1X PRN PRN PO MILD PAIN / TEMP; Start 04/18/19 at 14:30; Stop 04/19/19 at 14:29; Status DC Diphenhydramine HCl (Benadryl) 25 mg 1X PRN PRN IV ITCHING; Start 04/18/19 at 14:30; Stop 04/19/19 at 14:29; Status DC Diphenhydramine HCl (Benadryl) 25 mg 1X PRN PRN IV ITCHING; Start 04/18/19 at 14:30; Stop 04/19/19 at 14:29; Status DC Sodium Chloride 1,000 ml @ 400 mls/hr Q2H30M PRN IV PATENCY; Start 04/18/19 at 14:22; Stop 04/19/19 at 02:21; Status DC Info (PHARMACY MONITORING -- do not chart) 1 each PRN DAILY PRN MC SEE COMMENTS; Start 04/18/19 at 14:30 Apixaban (Eliquis) 5 mg BID PO Last administered on 04/19/19at 21:00; Start 04/19/19 at 09:00 Hydromorphone HCl (Dilaudid) 0.5 mg 1X ONCE IV Last administered on 04/18/19at 20:05; Start 04/18/19 at 19:30; Stop 04/18/19 at 19:31; Status DC Lidocaine/ Epinephrine (LIDOCAINE 1%-EPI 1:100,000 Multi-Dose) 20 ml 1X ONCE INJ ; Start 04/19/19 at 18:15; Stop 04/19/19 at 18:16; Status DC Lidocaine/ Epinephrine (LIDOCAINE 2%-EPI 1:100,000 multi-dose) 20 ml 1X ONCE IJ ; Start 04/19/19 at 18:15; Stop 04/19/19 at 18:16; Status DC Sodium Chloride 1,000 ml @ 1,000 mls/hr Q1H PRN IV hypotension; Start 04/20/19 at 08:28; Stop 04/20/19 at 14:27; Status DC Acetaminophen (Tylenol) 500 mg 1X PRN PRN PO MILD PAIN / TEMP; Start 04/20/19 at 08:30; Stop 04/21/19 at 08:29; Status DC Diphenhydramine HCl (Benadryl) 25 mg 1X PRN PRN IV ITCHING; Start 04/20/19 at 08:30; Stop 04/21/19 at 08:29; Status DC Diphenhydramine HCl (Benadryl) 25 mg 1X PRN PRN IV ITCHING; Start 04/20/19 at 08:30; Stop 04/21/19 at 08:29; Status DC Sodium Chloride 1,000 ml @ 400 mls/hr Q2H30M PRN IV PATENCY; Start 04/20/19 at 08:28; Stop 04/20/19 at 20:27; Status DC Info (PHARMACY MONITORING -- do not chart) 1 each PRN DAILY PRN MC SEE COMMENTS; Start 04/20/19 at 08:30 Cellulose (Surgicel Hemostat 4x8) 1 each 1X ONCE TP ; Start 04/20/19 at 14:00; Stop 04/20/19 at 13:57; Status DC Cellulose (Surgicel Fibrillar 1x2) 1 each 1X ONCE TP Last administered on 04/20/19at 14:22; Start 04/20/19 at 14:00; Stop 04/20/19 at 14:01; Status DC Silver Nitrate/ Potassium Nitrate 1 each 1X ONCE TP Last administered on 04/20/19at 14:22; Start 04/20/19 at 14:15; Stop 04/20/19 at 14:16; Status DC Aspirin (Ecotrin) 81 mg [id number] PO ; Start 04/21/19 at 08:00 Metoprolol Tartrate (Lopressor Vial) 5 mg PRN Q6HRS PRN IVP HR > 110; Start 04/21/19 at 09:00 Active Scripts Active Hydrocodone-Apap 10-325 (Hydrocodone Bit/Acetaminophen) 1 Tab Tablet 1 Tab PO PRN Q6HRS PRN 6 Days Acetaminophen 500 Mg Tablet 500 Mg PO PRN Q6HRS PRN 14 Days Eliquis (Apixaban) 5 Mg Tablet 5 Mg PO BID 30 Days Reported Miralax (Polyethylene Glycol 3350) 17 Gm Powd.pack 1 Pkt PO DAILY Preservision Areds Tablet (Vit A/Vit C/Vit E/Zinc/Copper) 1 Each Tablet 1 Each PO DAILY Allopurinol 300 Mg Tablet 300 Mg PO DAILY Furosemide 40 Mg Tablet 40 Mg PO DAILY Toprol Xl (Metoprolol Succinate) 50 Mg Tab.er.24h 100 Mg PO DAILY Flomax (Tamsulosin Hcl) 0.4 Mg Cap.er.24h 1 Cap PO HS Amlodipine Besylate 5 Mg Tablet 10 Mg PO DAILY Testosterone Cypionate 200 Mg/1 Ml Vial 1 Ml IM [id number] Clopidogrel (Clopidogrel Bisulfate) 75 Mg Tablet 1 Tab PO DAILY Vitamin C (Ascorbic Acid) 1,000 Mg Tablet 1,000 Mg PO DAILY Co Q-10 (Ubidecarenone) 200 Mg Capsule 200 Mg PO DAILY Krill Oil 500 Mg Capsule 500 Mg PO Multi-Vitamin Daily (Multivitamin) 1 Each Tablet 1 Each PO DAILY Gemfibrozil 600 Mg Tablet 1 Tab PO DAILY Zetia (Ezetimibe) 10 Mg Tablet 1 Tab PO DAILY Nexium Capsule (Esomeprazole Magnesium) 40 Mg Capsule. 1 Cap PO DAILY Vitals/I & O Vital Sign - Last 24 Hours 04/20/19 04/20/19 04/20/19 04/20/19 15:00 15:17 16:17 19:20 Temp 98.3 98.2 98.3 98.2 Pulse 97 82 Resp 18 12 17 B/P (MAP) 149/69 (95) 131/62 (85) Pulse Ox 93 94 O2 Delivery Room Air Room Air Room Air Room Air 11/1/19 11/1/19 11/1/19 11/2/19 19:31 23:07 23:24 00:10 Temp 98.3 98.3 Pulse 83 Resp 18 20 16 B/P (MAP) 140/68 (92) Pulse Ox 93 O2 Delivery Room Air Room Air Room Air Room Air 04/21/19 04/21/19 04/21/19 04/21/19 03:15 07:00 08:35 08:36 Temp 98.9 98.3 98.9 98.3 Pulse 81 102 102 Resp 18 18 18 B/P (MAP) 131/56 (81) 147/73 (97) 147/73 Pulse Ox 91 93 93 O2 Delivery Room Air Room Air Room Air O2 Flow Rate 2.0 04/21/19 08:36 Pulse 102 B/P (MAP) 147/73 Intake and Output 04/20/19 04/20/19 04/21/19 15:00 23:00 07:00 Intake Total 400 ml 210 ml Output Total 200 ml Balance 400 ml 10 ml SUHAS BASS MD Apr 21, 2019 09:34
[2019-04-21 11:00] VITALS: BP 144/65
[2019-04-21] MEDS ORDERED: DIALYSIS PATIENT. MC PRN ×2 (12:30)
[2019-04-21] MEDS ORDERED: IV NORMAL SALINE 1000ML BAG 1,000 ML IV PRN ×2 (12:30)
--- NOTE | 2019-04-21 13:36 | PDOC ---
CARDIOLOGY PROGRESS NOTE SUBJECTIVE: Continues to have mild dyspnea but denies any chest pain Continues to have bleeding issues from the left incisional site for the carotid endarterectomy Plavix and Eliquis have been held. OBJECTIVE: Vital Signs/I&O: Vital Signs Date Time Temp Pulse Resp B/P (MAP) Pulse Ox O2 Delivery O2 Flow Rate FiO2 04/21/19 11:00 98.2 88 18 144/65 (91) 91 Room Air 98.2 04/21/19 10:38 2.0 I & O 04/20/19 04/20/19 04/21/19 15:00 23:00 07:00 Intake Total 400 ml 210 ml Output Total 200 ml Balance 400 ml 10 ml Objective: Left neck site is in sterile dressing 1+ lower extremity edema persists Irregular heart tones Clear lung solares Soft abdomen CURRENT MEDICATIONS: Metoprolol zetia amlodipine DIAGNOSTIC TESTING: Labs: Laboratory Tests 04/21/19 03:30 Laboratory Tests Test 04/20/19 16:47 04/20/19 20:53 04/21/19 03:30 04/21/19 07:08 Glucose (Fingerstick) 133 mg/dL (70-99) H 171 mg/dL (70-99) H 116 mg/dL (70-99) H Sodium Level 136 mmol/L (136-145) Potassium Level 4.0 mmol/L (3.5-5.1) Chloride Level 99 mmol/L (98-107) Carbon Dioxide Level 30 mmol/L (21-32) Anion Gap 7 (6-14) Blood Urea Nitrogen 26 mg/dL (8-26) Creatinine 2.4 mg/dL (0.7-1.3) H Estimated GFR (Cockcroft-Gault) 26.3 Glucose Level 140 mg/dL (70-99) H Calcium Level 9.0 mg/dL (8.5-10.1) Test 04/21/19 12:18 Glucose (Fingerstick) 134 mg/dL (70-99) H ASSESSMENT: 1. CKD now on HD 2. Prior CAD with stress w/in last year w/o ischemia 3. Chronic atrial fibrillation on anticoagulation, held due to surgical site bleeding. 4. Prior CVA 5. Ischemic CMP PLAN: 1. Continue present meds. Will add statin therapy 2. Supportive care for now from a purely CV perspective. No further indication for cath etc. After acute issues resolved, consider repeat echo and discuss possible ICD prn. RONALDO DANIEL MD Apr 21, 2019 13:36
--- NOTE | 2019-04-21 13:48 | PDOC ---
SURGICAL PROGRESS NOTE Subjective Patient was seen and examined at the bedside and overall is doing well. He has had several episodes of skin edge bleeding from his left carotid incision since surgery. He has started dialysis which is a new finding for him. Vital Signs Vital Signs Date Time Temp Pulse Resp B/P (MAP) Pulse Ox O2 Delivery O2 Flow Rate FiO2 04/21/19 11:00 98.2 88 18 144/65 (91) 91 Room Air 98.2 04/21/19 10:38 2.0 I&O Intake and Output 04/21/19 07:00 Intake Total 610 ml Output Total 200 ml Balance 410 ml Intake Oral 610 ml Output Urine Total 200 ml General: Alert, Oriented X3, Cooperative HEENT: Other (left neck incision has a punctate area in the superficial skin with skin edge bleeding. There is no evidence of pulsatile bleeding and no evidence of pulsatile mass, the incision is flat with no evidence of hematoma) Lungs: Clear to auscultation, Normal air movement Heart: Regular rate, Normal S1, Normal S2 Abdomen: Soft, No tenderness Extremities: Normal pulses, Other (bilateral lower extremity 3+ pitting edema) Skin: No rashes, No breakdown Labs Laboratory Tests Test 04/19/19 16:39 04/19/19 20:56 04/20/19 07:36 04/20/19 09:00 Glucose (Fingerstick) 146 mg/dL (70-99) 186 mg/dL (70-99) 108 mg/dL (70-99) Sodium Level 137 mmol/L (136-145) Potassium Level 3.9 mmol/L (3.5-5.1) Chloride Level 99 mmol/L (98-107) Carbon Dioxide Level 29 mmol/L (21-32) Anion Gap 9 (6-14) Blood Urea Nitrogen 38 mg/dL (8-26) Creatinine 2.6 mg/dL (0.7-1.3) Estimated GFR (Cockcroft-Gault) 24.0 Glucose Level 106 mg/dL (70-99) Calcium Level 9.2 mg/dL (8.5-10.1) Test 04/20/19 16:47 04/20/19 20:53 04/21/19 03:30 04/21/19 07:08 Glucose (Fingerstick) 133 mg/dL (70-99) 171 mg/dL (70-99) 116 mg/dL (70-99) Sodium Level 136 mmol/L (136-145) Potassium Level 4.0 mmol/L (3.5-5.1) Chloride Level 99 mmol/L (98-107) Carbon Dioxide Level 30 mmol/L (21-32) Anion Gap 7 (6-14) Blood Urea Nitrogen 26 mg/dL (8-26) Creatinine 2.4 mg/dL (0.7-1.3) Estimated GFR (Cockcroft-Gault) 26.3 Glucose Level 140 mg/dL (70-99) Calcium Level 9.0 mg/dL (8.5-10.1) Test 04/21/19 12:18 Glucose (Fingerstick) 134 mg/dL (70-99) Laboratory Tests Test 04/20/19 16:47 04/20/19 20:53 04/21/19 03:30 04/21/19 07:08 Glucose (Fingerstick) 133 mg/dL (70-99) 171 mg/dL (70-99) 116 mg/dL (70-99) Sodium Level 136 mmol/L (136-145) Potassium Level 4.0 mmol/L (3.5-5.1) Chloride Level 99 mmol/L (98-107) Carbon Dioxide Level 30 mmol/L (21-32) Anion Gap 7 (6-14) Blood Urea Nitrogen 26 mg/dL (8-26) Creatinine 2.4 mg/dL (0.7-1.3) Estimated GFR (Cockcroft-Gault) 26.3 Glucose Level 140 mg/dL (70-99) Calcium Level 9.0 mg/dL (8.5-10.1) Test 04/21/19 12:18 Glucose (Fingerstick) 134 mg/dL (70-99) Problem List Problems Medical Problems: (1) Acute on chronic renal failure Status: Acute (2) CHF exacerbation Status: Acute Assessment/Plan Status post left carotid endarterectomy--patient has superficial skin edge bleeding and this has been exacerbated by his Xarelto and Plavix. The blood thinners have been held at this time. I did inspect the wound and hold pressure over the wound with Surgicel. I will see the patient tomorrow to ensure that his bleeding has subsided. I suspect this will improve with the blood thinners held. All questions were answered to the patient's and his 's satisfaction. Bernard Mock DO, FACS, RPVI BERNARD MOCK DO Apr 21, 2019 13:47
--- NOTE | 2019-04-21 15:49 | PDOC ---
Renal-Progress Notes Subjective Notes Notes FEELS WELL BUT STILL HAS LE EDEMA History of Present Illness Hx of present illness STABLE Vitals Vitals Vital Signs Date Time Temp Pulse Resp B/P (MAP) Pulse Ox O2 Delivery O2 Flow Rate FiO2 04/21/19 11:00 98.2 88 18 144/65 (91) 91 Room Air 98.2 04/21/19 10:38 2.0 Weight Weight [ ] I.O. Intake and Output Intake and Output 04/21/19 07:00 Intake Total 610 ml Output Total 200 ml Balance 410 ml Intake Oral 610 ml Output Urine Total 200 ml Labs Labs Laboratory Tests Test 04/20/19 16:47 04/20/19 20:53 04/21/19 03:30 04/21/19 07:08 Glucose (Fingerstick) 133 mg/dL (70-99) 171 mg/dL (70-99) 116 mg/dL (70-99) Sodium Level 136 mmol/L (136-145) Potassium Level 4.0 mmol/L (3.5-5.1) Chloride Level 99 mmol/L (98-107) Carbon Dioxide Level 30 mmol/L (21-32) Anion Gap 7 (6-14) Blood Urea Nitrogen 26 mg/dL (8-26) Creatinine 2.4 mg/dL (0.7-1.3) Estimated GFR (Cockcroft-Gault) 26.3 Glucose Level 140 mg/dL (70-99) Calcium Level 9.0 mg/dL (8.5-10.1) Test 04/21/19 12:18 Glucose (Fingerstick) 134 mg/dL (70-99) Review of Systems Constitutional: yes: weakness, alert, oriented Ears/Nose/Throat: Yes: no symptom reported Eyes: Yes: no symptom reported Pulmonary: Yes dyspnea Cardiovascular: Yes edema Gastrointestional: Yes: no symptom reported Genitourinary: Yes: no symptom reported Musculoskeletal: Yes: no symptom reported Skin: Yes no symptom reported Psychiatric/Neurological: Yes: no symptom reported Endocrine: Yes: no symptom reported Physical Exam General Appearance: no apparent distress Skin: warm Heart: S1S2 Abdomen: soft, bowel sounds present Extremities: pulses present, edema Neurology: alert, oriented, follow commands Assessment Assessment IMP DANNA CKD STAGE 3B WITH CRCL OF 38 EARLIER THIS YEAR CM WITH EF OF ABOUT 30% ACUTE ON CHRONIC SYSTOLIC CHF S/P LEFT CEA CAD DM II HTN PLAN RESUME HIS LASIX MAY RECOVER RENAL FXN IN TIME OP HD HAS BEEN SET UP TO TTS AT [facility] D/W PT AND D/W ATTENDING WILL FOLLOW BERTO BECKER MD Apr 21, 2019 15:48
[2019-04-21 19:10] VITALS: BP 137/59
[2019-04-21] MEDS: TAMSULOSIN 0.4 MG CAP.ER.24H. PO SCH (20:49)
[2019-04-21 23:25] VITALS: BP 135/64
[2019-04-22 03:45] VITALS: BP 111/69
[2019-04-22] MEDS: HYDROcodone/APAP 10/325 1 TAB TABLET PO PRN ×2 (05:23→11:51)
[2019-04-22 07:00] VITALS: BP 140/64
[2019-04-22] MEDS: ASPIRIN ENTERIC COATED 81 MG TABLET.DR. PO SCH (08:00)
[2019-04-22] MEDS: EZETIMIBE 10 MG TABLET. PO SCH (08:35)
[2019-04-22] MEDS: ASCORBIC ACID 500 MG TABLET PO SCH (08:35)
[2019-04-22] MEDS: GEMFIBROZIL 600 MG TABLET. PO SCH (08:35)
[2019-04-22] MEDS: MULTIVITAMIN with MINERAL TABLET. PO SCH (08:35)
[2019-04-22] MEDS: ALLOPURINOL 100 MG TABLET. PO SCH (08:35)
[2019-04-22] MEDS: POLYETHYLENE GLYCOL 3350 17 GM PACKET. PO SCH (08:36)
[2019-04-22] MEDS: METOPROLOL SUCC 24HR ER 100 MG TAB.ER.24H. PO SCH (08:36)
[2019-04-22] MEDS: amLODIPine BESYLATE 10 MG TABLET PO SCH (08:36)
[2019-04-22] MEDS: PANTOPRAZOLE 40 MG TABLET.DR. PO SCH (08:36)
[2019-04-22] MEDS: MULTIVITAMIN I-VITE TABLET. PO SCH (08:39)
[2019-04-22] MEDS: APIXABAN 5 MG TABLET. PO SCH (09:00)
[2019-04-22 10:00] LABS: HEMATOCRIT 27.7 % (39.0-53.0); HEMOGLOBIN 8.9 g/dL (13.0-17.5); RED BLOOD COUNT 2.91 x10^6/uL (4.30-5.70); RED CELL DISTRIBUTION WIDTH 16.9 % (11.5-14.5); WHITE BLOOD COUNT 7.6 x10^3/uL (4.0-11.0)
[2019-04-22] MEDS ORDERED: ATORVASTATIN CALCIUM 40 MG TABLET. PO SCH (10:00)
[2019-04-22 10:11] LABS: ALBUMIN 3.3 g/dL (3.4-5.0); CREATININE 2.3 mg/dL (0.7-1.3); GFR 27.6; TOTAL BILIRUBIN 0.5 mg/dL (0.2-1.0); TOTAL PROTEIN 6.5 g/dL (6.4-8.2)
[2019-04-22 10:23] LABS: CHOLESTEROL/HDL RATIO 5.2
[2019-04-22 10:24] LABS: CALCIUM 8.9 mg/dL (8.5-10.1)
[2019-04-22 10:25] LABS: POTASSIUM 3.9 mmol/L (3.5-5.1)
[2019-04-22 11:19] VITALS: BP 139/63
--- NOTE | 2019-04-22 11:42 | PDOC ---
Renal-Progress Notes Subjective Notes Notes DOING WELL, NO MORE BLEEDING History of Present Illness Hx of present illness STABLE Vitals Vitals Vital Signs Date Time Temp Pulse Resp B/P (MAP) Pulse Ox O2 Delivery O2 Flow Rate FiO2 04/22/19 11:19 98.0 80 18 139/63 (88) 95 Room Air 98.0 04/22/19 08:00 2.0 Weight Weight [ ] I.O. Intake and Output Intake and Output 04/22/19 07:00 Intake Total 1810 ml Output Total 1000 ml Balance 810 ml Intake Oral 1810 ml Output Urine Total 1000 ml Labs Labs Laboratory Tests Test 04/21/19 12:18 04/21/19 16:45 04/21/19 20:49 04/22/19 04:45 Glucose (Fingerstick) 134 mg/dL (70-99) 125 mg/dL (70-99) 177 mg/dL (70-99) White Blood Count 7.6 x10^3/uL (4.0-11.0) Red Blood Count 2.91 x10^6/uL (4.30-5.70) Hemoglobin 8.9 g/dL (13.0-17.5) Hematocrit 27.7 % (39.0-53.0) Mean Corpuscular Volume 95 fL (79-100) Mean Corpuscular Hemoglobin 31 pg (25-35) Mean Corpuscular Hemoglobin Concent 32 g/dL (31-37) Red Cell Distribution Width 16.9 % (11.5-14.5) Platelet Count 217 x10^3/uL (140-400) Sodium Level 137 mmol/L (136-145) Potassium Level 3.9 mmol/L (3.5-5.1) Chloride Level 99 mmol/L (98-107) Carbon Dioxide Level 29 mmol/L (21-32) Anion Gap 9 (6-14) Blood Urea Nitrogen 24 mg/dL (8-26) Creatinine 2.3 mg/dL (0.7-1.3) Estimated GFR (Cockcroft-Gault) 27.6 BUN/Creatinine Ratio 10 (6-20) Glucose Level 106 mg/dL (70-99) Calcium Level 8.9 mg/dL (8.5-10.1) Total Bilirubin 0.5 mg/dL (0.2-1.0) Aspartate Amino Transf (AST/SGOT) 18 U/L (15-37) Alanine Aminotransferase (ALT/SGPT) 15 U/L (16-63) Alkaline Phosphatase 77 U/L (46-116) Total Protein 6.5 g/dL (6.4-8.2) Albumin 3.3 g/dL (3.4-5.0) Albumin/Globulin Ratio 1.0 (1.0-1.7) Triglycerides Level 59 mg/dL (0-150) Cholesterol Level 103 mg/dL (0-200) LDL Cholesterol, Calculated 71 mg/dL (0-100) VLDL Cholesterol, Calculated 12 mg/dL (0-40) Non-HDL Cholesterol Calculated 83 mg/dL (0-129) HDL Cholesterol 20 mg/dL (40-60) Cholesterol/HDL Ratio 5.2 Test 04/22/19 07:07 04/22/19 11:33 Glucose (Fingerstick) 135 mg/dL (70-99) 143 mg/dL (70-99) Review of Systems Constitutional: yes: weakness, alert, oriented Ears/Nose/Throat: Yes: no symptom reported Eyes: Yes: no symptom reported Pulmonary: Yes dyspnea Cardiovascular: Yes edema Gastrointestional: Yes: no symptom reported Genitourinary: Yes: no symptom reported Musculoskeletal: Yes: no symptom reported Skin: Yes no symptom reported Psychiatric/Neurological: Yes: no symptom reported Endocrine: Yes: no symptom reported Physical Exam General Appearance: no apparent distress Skin: warm Heart: S1S2 Abdomen: soft, bowel sounds present Extremities: pulses present, edema Neurology: alert, oriented, follow commands Assessment Assessment IMP DANAN CKD STAGE 3B WITH CRCL OF 38 EARLIER THIS YEAR CM WITH EF OF ABOUT 30% ACUTE ON CHRONIC SYSTOLIC CHF S/P LEFT CEA CAD DM II HTN PLAN MAY RECOVER RENAL FXN IN TIME OP HD HAS BEEN SET UP TO TTS AT [facility] D/W PT AND D/W ATTENDING D/C PLANS FOR TODAY WILL FOLLOW UP OP AND LOOK FOR RENAL RECOVERY BERTO BECKER MD Apr 22, 2019 11:42
--- NOTE | 2019-04-22 12:17 | PDOC ---
CARDIOLOGY PROGRESS NOTE SUBJECTIVE: No acute events overnight. After removal of 3 L of fluid he actually feels much better today. No bleeding from his neck. OBJECTIVE: Vital Signs/I&O: Vital Signs Date Time Temp Pulse Resp B/P (MAP) Pulse Ox O2 Delivery O2 Flow Rate FiO2 04/22/19 11:51 95 Room Air 2.0 04/22/19 11:19 98.0 80 18 139/63 (88) 98.0 I & O 04/21/19 04/21/19 04/22/19 15:00 23:00 07:00 Intake Total 720 ml 490 ml 600 ml Output Total 400 ml 200 ml 400 ml Balance 320 ml 290 ml 200 ml Objective: He has bilateral lower extremity 2+ pitting edema this is likely a combination of venous stasis and right heart failure Left carotid dressing is in place without any obvious hematoma Irregular heart tones persist Lung solares are clear Soft abdomen. CURRENT MEDICATIONS: Cardiac medications include atorvastatin, metoprolol, zetia, gemfibrozil and amlodipine His aspirin, Eliquis and Plavix have been currently held DIAGNOSTIC TESTING: Labs: Labs reviewed and creatinine stable ASSESSMENT: 1. CK D with progression end-stage renal disease currently on hemodialysis Tuesday, and Tuesday 2. 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 Severe peripheral arterial disease status post recent left carotid end arterectomy 4. Permanent atrial fibrillation 5. Hypertension 6. Dyslipidemia PLAN: 1. With regards to his an to regulation and antiplatelet therapy, we will await the vascular surgery services input. Ideally, we can send him home on Plavix therapy only with plans for reinitiation of his Eliquis within one week if there are no further bleeding issues from the surgical site. 2. I discussed with the patient and the family that should he continue to have persistent dyspnea or other issues despite aggressive dialysis we may then consider a cardiac catheterization on an outpatient basis We will follow-up with him in the office in 2 months. RONALDO DANIEL MD Apr 22, 2019 12:17
--- NOTE | 2019-04-22 12:41 | PDOC ---
PROGRESS NOTES Chief Complaint Chief Complaint A/P: Acute on chronic leg edema CHF exacerbation with elevated BNP and interstitial edema on CXR Recent CEA left done by DR Pickard 04/02- ff up vacs sx NOv 4 (already set up- healing very well per acct) Obesity BMI 32 DANNA on CKD - CREAT JUMPED TO 4, now possibly ESRD, needs outpatient dialysis, this is set up Hypertension Normocytic anemia Generalized weakness Paroxysmal A. 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 cr= 1.5 10/01 Diabetes type 2 Dysphagia pulmonary hypertension, mod-severe PLAN: RENAL, VASCULAR, AND CARD CONSULTS PT.OT d/w in room 36 min pt exam, chart review, > 50% of time spent with exam, chart review, pt care coordination History of Present Illness History of Present Illness Mr Bardales is a 79-year-old M w/ PMHx hypertension, CHF, PVD, carotid disease s/p recent left CEA on 04/02, and chronic kidney disease, stage 4. He was admitted with increasing shortness of breath and lower extremity edema. He was felt to be in decompensated congestive cardiomyopathy. Seen by cardiology and nephrology in consultation. 04/16: He still has ROBERTS walking 20 feet in the hallway and orthopnea. CR 3.7 today (4.3 on admit). D/w nephrology to continue holding diuretics and cardiology that volume status with a RHC would be appropriate. He is amenable to the likely inevitability of renal replacement therapy given his Cr was 1.7 earlier this year, but has been progressively worsening since September. Has a small hematoma on his left neck, stable. 04/17: Overnight was picking at his CEA site and it began oozing blood, soaked multiple pressures dressings and surgicell. Required topical thrombin for hemostasis. Cr 4.2, BUN 71 today. RHC with RVSP 39 04/18: S/p tunneled HD cath right now. Feeling ok today. No further bleeding from left neck. Cr 4 today. 1st session of dialysis 04/19: He feels wiped out after dialysis yesterday. A bit weak. Cr 2.9, BUN 40 now. Plans for dialysis tomorrow. 04/20: Bleeding overnight from left CEA site, had epi injection per Dr. Ashton. Today seen on dialysis feeling improved. Renal labs improved. Has outpatient dialysis chair. He and his are concerned he has not been out of bed in the past 2 days and still has LE swelling. Plans for vascular surgery repeat eval in AM. Hopefully home in the next day or so. 04/21: Overnight had further bleeding at CEA site. He has been feeling better with dialysis sessions, less short of breath. Still swollen. Feeling weak, wishes to work with therapy. Feeling much better today. No further bleeding from CEA site, but there is gauze adhered to it. He has had several episodes of skin edge bleeding from his left carotid incision since surgery, but no further Vitals Vitals Vital Signs Date Time Temp Pulse Resp B/P (MAP) Pulse Ox O2 Delivery O2 Flow Rate FiO2 04/22/19 11:51 95 Room Air 2.0 04/22/19 11:19 98.0 80 18 139/63 (88) 98.0 Physical Exam General: Alert, Oriented X3, Cooperative Heart: Regular rate, Normal S1, Normal S2 Lungs: Clear Abdomen: Soft, No tenderness Extremities: Normal pulses, Other (bilateral lower extremity 3+ pitting edema) Skin: No rashes, No breakdown Labs LABS Laboratory Tests Test 04/21/19 16:45 04/21/19 20:49 04/22/19 04:45 04/22/19 07:07 Glucose (Fingerstick) 125 mg/dL (70-99) 177 mg/dL (70-99) 135 mg/dL (70-99) White Blood Count 7.6 x10^3/uL (4.0-11.0) Red Blood Count 2.91 x10^6/uL (4.30-5.70) Hemoglobin 8.9 g/dL (13.0-17.5) Hematocrit 27.7 % (39.0-53.0) Mean Corpuscular Volume 95 fL (79-100) Mean Corpuscular Hemoglobin 31 pg (25-35) Mean Corpuscular Hemoglobin Concent 32 g/dL (31-37) Red Cell Distribution Width 16.9 % (11.5-14.5) Platelet Count 217 x10^3/uL (140-400) Sodium Level 137 mmol/L (136-145) Potassium Level 3.9 mmol/L (3.5-5.1) Chloride Level 99 mmol/L (98-107) Carbon Dioxide Level 29 mmol/L (21-32) Anion Gap 9 (6-14) Blood Urea Nitrogen 24 mg/dL (8-26) Creatinine 2.3 mg/dL (0.7-1.3) Estimated GFR (Cockcroft-Gault) 27.6 BUN/Creatinine Ratio 10 (6-20) Glucose Level 106 mg/dL (70-99) Calcium Level 8.9 mg/dL (8.5-10.1) Total Bilirubin 0.5 mg/dL (0.2-1.0) Aspartate Amino Transf (AST/SGOT) 18 U/L (15-37) Alanine Aminotransferase (ALT/SGPT) 15 U/L (16-63) Alkaline Phosphatase 77 U/L (46-116) Total Protein 6.5 g/dL (6.4-8.2) Albumin 3.3 g/dL (3.4-5.0) Albumin/Globulin Ratio 1.0 (1.0-1.7) Triglycerides Level 59 mg/dL (0-150) Cholesterol Level 103 mg/dL (0-200) LDL Cholesterol, Calculated 71 mg/dL (0-100) VLDL Cholesterol, Calculated 12 mg/dL (0-40) Non-HDL Cholesterol Calculated 83 mg/dL (0-129) HDL Cholesterol 20 mg/dL (40-60) Cholesterol/HDL Ratio 5.2 Test 04/22/19 11:33 Glucose (Fingerstick) 143 mg/dL (70-99) Assessment and Plan Assessmemt and Plan Problems Medical Problems: (1) Acute on chronic renal failure Status: Acute (2) CHF exacerbation Status: Acute Comment Review of Relevant I have reviewed the following items viviane (where applicable) has been applied. Labs Laboratory Tests Test 04/20/19 16:47 04/20/19 20:53 04/21/19 03:30 04/21/19 07:08 Glucose (Fingerstick) 133 mg/dL (70-99) 171 mg/dL (70-99) 116 mg/dL (70-99) Sodium Level 136 mmol/L (136-145) Potassium Level 4.0 mmol/L (3.5-5.1) Chloride Level 99 mmol/L (98-107) Carbon Dioxide Level 30 mmol/L (21-32) Anion Gap 7 (6-14) Blood Urea Nitrogen 26 mg/dL (8-26) Creatinine 2.4 mg/dL (0.7-1.3) Estimated GFR (Cockcroft-Gault) 26.3 Glucose Level 140 mg/dL (70-99) Calcium Level 9.0 mg/dL (8.5-10.1) Test 04/21/19 12:18 04/21/19 16:45 04/21/19 20:49 04/22/19 04:45 Glucose (Fingerstick) 134 mg/dL (70-99) 125 mg/dL (70-99) 177 mg/dL (70-99) White Blood Count 7.6 x10^3/uL (4.0-11.0) Red Blood Count 2.91 x10^6/uL (4.30-5.70) Hemoglobin 8.9 g/dL (13.0-17.5) Hematocrit 27.7 % (39.0-53.0) Mean Corpuscular Volume 95 fL (79-100) Mean Corpuscular Hemoglobin 31 pg (25-35) Mean Corpuscular Hemoglobin Concent 32 g/dL (31-37) Red Cell Distribution Width 16.9 % (11.5-14.5) Platelet Count 217 x10^3/uL (140-400) Sodium Level 137 mmol/L (136-145) Potassium Level 3.9 mmol/L (3.5-5.1) Chloride Level 99 mmol/L (98-107) Carbon Dioxide Level 29 mmol/L (21-32) Anion Gap 9 (6-14) Blood Urea Nitrogen 24 mg/dL (8-26) Creatinine 2.3 mg/dL (0.7-1.3) Estimated GFR (Cockcroft-Gault) 27.6 BUN/Creatinine Ratio 10 (6-20) Glucose Level 106 mg/dL (70-99) Calcium Level 8.9 mg/dL (8.5-10.1) Total Bilirubin 0.5 mg/dL (0.2-1.0) Aspartate Amino Transf (AST/SGOT) 18 U/L (15-37) Alanine Aminotransferase (ALT/SGPT) 15 U/L (16-63) Alkaline Phosphatase 77 U/L (46-116) Total Protein 6.5 g/dL (6.4-8.2) Albumin 3.3 g/dL (3.4-5.0) Albumin/Globulin Ratio 1.0 (1.0-1.7) Triglycerides Level 59 mg/dL (0-150) Cholesterol Level 103 mg/dL (0-200) LDL Cholesterol, Calculated 71 mg/dL (0-100) VLDL Cholesterol, Calculated 12 mg/dL (0-40) Non-HDL Cholesterol Calculated 83 mg/dL (0-129) HDL Cholesterol 20 mg/dL (40-60) Cholesterol/HDL Ratio 5.2 Test 04/22/19 07:07 04/22/19 11:33 Glucose (Fingerstick) 135 mg/dL (70-99) 143 mg/dL (70-99) Laboratory Tests Test 04/21/19 16:45 04/21/19 20:49 04/22/19 04:45 04/22/19 07:07 Glucose (Fingerstick) 125 mg/dL (70-99) 177 mg/dL (70-99) 135 mg/dL (70-99) White Blood Count 7.6 x10^3/uL (4.0-11.0) Red Blood Count 2.91 x10^6/uL (4.30-5.70) Hemoglobin 8.9 g/dL (13.0-17.5) Hematocrit 27.7 % (39.0-53.0) Mean Corpuscular Volume 95 fL (79-100) Mean Corpuscular Hemoglobin 31 pg (25-35) Mean Corpuscular Hemoglobin Concent 32 g/dL (31-37) Red Cell Distribution Width 16.9 % (11.5-14.5) Platelet Count 217 x10^3/uL (140-400) Sodium Level 137 mmol/L (136-145) Potassium Level 3.9 mmol/L (3.5-5.1) Chloride Level 99 mmol/L (98-107) Carbon Dioxide Level 29 mmol/L (21-32) Anion Gap 9 (6-14) Blood Urea Nitrogen 24 mg/dL (8-26) Creatinine 2.3 mg/dL (0.7-1.3) Estimated GFR (Cockcroft-Gault) 27.6 BUN/Creatinine Ratio 10 (6-20) Glucose Level 106 mg/dL (70-99) Calcium Level 8.9 mg/dL (8.5-10.1) Total Bilirubin 0.5 mg/dL (0.2-1.0) Aspartate Amino Transf (AST/SGOT) 18 U/L (15-37) Alanine Aminotransferase (ALT/SGPT) 15 U/L (16-63) Alkaline Phosphatase 77 U/L (46-116) Total Protein 6.5 g/dL (6.4-8.2) Albumin 3.3 g/dL (3.4-5.0) Albumin/Globulin Ratio 1.0 (1.0-1.7) Triglycerides Level 59 mg/dL (0-150) Cholesterol Level 103 mg/dL (0-200) LDL Cholesterol, Calculated 71 mg/dL (0-100) VLDL Cholesterol, Calculated 12 mg/dL (0-40) Non-HDL Cholesterol Calculated 83 mg/dL (0-129) HDL Cholesterol 20 mg/dL (40-60) Cholesterol/HDL Ratio 5.2 Test 04/22/19 11:33 Glucose (Fingerstick) 143 mg/dL (70-99) Medications Current Medications Ondansetron HCl (Zofran) 4 mg PRN Q8HRS PRN IV NAUSEA/VOMITING; Start 04/13/19 at 16:30; Stop 04/14/19 at 16:29; Status DC Fentanyl Citrate (Fentanyl 2ml Vial) 50 mcg PRN Q1HR PRN IV PAIN; Start 04/13 at 16:30; Stop 04/14/19 at 16:29; Status DC Acetaminophen (Tylenol) 650 mg PRN Q4HRS PRN PO FEVER; Start 04/13/19 at 16: 30; Stop 04/14/19 at 16:29; Status DC Nitroglycerin (Nitrostat) 0.4 mg PRN Q5MIN PRN SL CHEST PAIN; Start 04/13/19 at 16:30; Stop 04/14/19 at 16:29; Status DC Acetaminophen (Tylenol) 500 mg PRN Q6HRS PRN PO MILD PAIN / TEMP; Start 04/13/19 at 16:45 Allopurinol (Zyloprim) 200 mg DAILY PO Last administered on 04/22/19at 08:35; Start 04/14/19 at 09:00 Amlodipine Besylate (Norvasc) 10 mg DAILY PO Last administered on 04/22/19 08:36; Start 04/14/19 at 09:00 Apixaban (Eliquis) 5 mg BID PO Last administered on 04/16/19 08:46; Start 04/13/19 at 21:00; Stop 04/16/19 at 15:58; Status DC Clopidogrel Bisulfate (Plavix) 75 mg DAILY PO Last administered on 04/19/19 09:49; Start 04/14/19 at 09:00; Stop 04/20/19 at 15:20; Status DC EZETIMIBE (Zetia) 10 mg DAILY PO Last administered on 04/22/19 08:35; Start 04/14/19 at 09:00 Furosemide (Lasix) 40 mg DAILY PO ; Start 04/14/19 at 09:00; Stop 04/13/19 at 18:31; Status DC Gemfibrozil (Lopid) 600 mg DAILY PO Last administered on 04/22/19 08:35; Star t 04/14/19 at 09:00 Acetaminophen/ Hydrocodone Bitart (Lortab 10/325) 1 tab PRN Q6HRS PRN PO PAIN MOD TO SEV Last administered on 04/22/19 11:51; Start 04/13/19 at 16:45 Metoprolol Succinate (Toprol Xl) 100 mg DAILY PO Last administered on 04/22/19 08:36; Start 04/14/19 at 09:00 Polyethylene Glycol (miraLAX PACKET) 17 gm DAILY PO Last administered on 04/22/19 08:36; Start 04/14/19 at 09:00 Tamsulosin HCl (Flomax) 0.4 mg HS PO Last administered on 04/21/19 20:49; Start 04/13/19 at 21:00 Ascorbic Acid (Vitamin C) 1,000 mg DAILY PO Last administered on 04/22/19 08:35; Start 04/14/19 at 09:00 Pantoprazole Sodium (Protonix) 40 mg DAILYAC PO Last administered on 04/22/19 08:36; Start 04/14/19 at 07:30 Multivitamins (Thera M Plus) 1 tab DAILY PO Last administered on 04/22/19 08:35; Start 04/14/19 at 09:00 Non-Formulary Medication (Ubidecarenone (Co Q-10)) 200 mg DAILY PO ; Start 04/14/19 at 09:00; Status UNV Multivitamins/ Minerals (I-Rehana) 1 tab DAILY PO Last administered on 04/22/19at 08:39; Start 04/14/19 at 09:00 Temazepam (Restoril) 7.5 mg PRN QHS PRN PO INSOMNIA Last administered on 04/18/19at 22:18; Start 04/13/19 at 16:45 Ondansetron HCl (Zofran) 4 mg PRN Q6HRS PRN IVP NAUSEA/VOMITING; Start 04/13/19 at 16:45 Albuterol/ Ipratropium (Duoneb) 3 ml RTQID NEB ; Start 04/13/19 at 20:00; Stop 04/14/19 at 21:07; Status DC Guaifenesin (Robitussin Dm) 10 ml PRN Q6HRS PRN PO COUGH Last administered on 04/20/19at 03:55; Start 04/13/19 at 16:45 Info (Anti-Coagulation Monitoring By Pharmacy) 1 each PRN DAILY PRN MC SEE COMMENTS Last administered on 04/16/19at 11:08; Start 04/13/19 at 17:00 Sodium Chloride 1,000 ml @ 100 mls/hr 1X ONCE IV Last administered on 04/13/19at 19:58; Start 04/13/19 at 18:30; Stop 04/14/19 at 04:29; Status DC Albuterol Sulfate (Ventolin Neb Soln) 2.5 mg PRN QID PRN NEB SHORTNESS OF BREATH; Start 04/14/19 at 21:15 Hydralazine HCl (Apresoline Inj) 10 mg PRN Q4HRS PRN IVP ELEVATED BP, SEE COMMENTS; Start 04/16/19 at 03:30 Cellulose (Surgicel Hemostat 4x8) 1 each 1X ONCE TP Last administered on 04/17/19at 00:57; Start 04/17/19 at 01:00; Stop 04/17/19 at 01:01; Status DC Thrombin 20,000 unit 1X ONCE TP ; Start 04/17/19 at 03:00; Stop 04/17/19 at 03:01; Status DC Lidocaine HCl (Lidocaine 1% 20ml Vial) 20 ml [employer] ONCE .ROUTE ; Start 04/17/19 at 12:56; Stop 04/17/19 at 12:56; Status DC Heparin Sodium/ Sodium Chloride (HEPARIN for ARTERIAL LINE FLUSH) 1,000 unit 1X ONCE IART Last administered on 04/17/19at 13:00; Start 04/17/19 at 13:00; Stop 04/17/19 at 13:01; Status DC Heparin Sodium/ Sodium Chloride (HEPARIN for ARTERIAL LINE FLUSH) 1,000 unit 1X ONCE IART ; Start 04/17/19 at 13:00; Stop 04/17/19 at 13:01; Status DC Midazolam HCl (Versed) 2 mg 1X ONCE IV Last administered on 04/17/19at 13:00; Start 04/17/19 at 13:00; Stop 04/17/19 at 13:01; Status DC Fentanyl Citrate (Fentanyl 2ml Vial) 100 mcg 1X ONCE IV Last administered on 04/17/19at 13:00; Start 04/17/19 at 13:00; Stop 04/17/19 at 13:01; Status DC Lidocaine HCl (Lidocaine 1% 20ml Vial) 20 ml 1X ONCE INJ Last administered on 04/17/19at 13:00; Start 04/17/19 at 13:00; Stop 04/17/19 at 13:01; Status DC Heparin Sodium/ Sodium Chloride 500 ml @ As Directed STK-MED ONCE .ROUTE ; Start 04/17/19 at 12:56; Stop 04/17/19 at 12:56; Status DC Fentanyl Citrate (Fentanyl 2ml Vial) 100 mcg STK-MED ONCE .ROUTE ; Start 04/17/19 at 13:03; Stop 04/17/19 at 13:03; Status DC Midazolam HCl (Versed) 2 mg STK-MED ONCE .ROUTE ; Start 04/17/19 at 13:03; Stop 04/17/19 at 13:04; Status DC Lidocaine/ Epinephrine (LIDOCAINE 1%-EPI 1:100,000 Multi-Dose) 20 ml STK-MED ONCE .ROUTE ; Start 04/18/19 at 09:50; Stop 04/18/19 at 09:50; Status DC Midazolam HCl (Versed) 2 mg 1X ONCE IV Last administered on 04/18/19at 10:00; Start 04/18/19 at 10:00; Stop 04/18/19 at 10:01; Status DC Fentanyl Citrate (Fentanyl 2ml Vial) 100 mcg 1X ONCE IV Last administered on 04/18/19at 10:00; Start 04/18/19 at 10:00; Stop 04/18/19 at 10:01; Status DC Lidocaine/ Epinephrine (LIDOCAINE 1%-EPI 1:100,000 Multi-Dose) 20 ml 1X ONCE SQ Last administered on 04/18/19at 10:00; Start 04/18/19 at 10:00; Stop 04/18/19 at 10:01; Status DC Vancomycin HCl 250 ml @ 250 mls/hr 1X ONCE IV Last administered on 04/18/19at 10:00; Start 04/18/19 at 10:00; Stop 04/18/19 at 10:59; Status DC Vancomycin HCl 250 ml @ As Directed STK-MED ONCE .ROUTE ; Start 04/18/19 at 09:58; Stop 04/18/19 at 09:59; Status DC Midazolam HCl (Versed) 2 mg STK-MED ONCE .ROUTE ; Start 04/18/19 at 09:58; Stop 04/18/19 at 09:59; Status DC Fentanyl Citrate (Fentanyl 2ml Vial) 100 mcg STK-MED ONCE .ROUTE ; Start 04/18/19 at 09:58; Stop 04/18/19 at 09:59; Status DC Vancomycin HCl 250 ml @ As Directed STK-MED ONCE .ROUTE ; Start 04/18/19 at 10:08; Stop 04/18/19 at 10:08; Status DC Sodium Chloride 1,000 ml @ 1,000 mls/hr Q1H PRN IV hypotension; Start 04/18/19 at 14:22; Stop 04/18/19 at 20:21; Status DC Acetaminophen (Tylenol) 500 mg 1X PRN PRN PO MILD PAIN / TEMP; Start 04/18/19 at 14:30; Stop 04/19/19 at 14:29; Status DC Diphenhydramine HCl (Benadryl) 25 mg 1X PRN PRN IV ITCHING; Start 04/18/19 at 14:30; Stop 04/19/19 at 14:29; Status DC Diphenhydramine HCl (Benadryl) 25 mg 1X PRN PRN IV ITCHING; Start 04/18/19 at 14:30; Stop 04/19/19 at 14:29; Status DC Sodium Chloride 1,000 ml @ 400 mls/hr Q2H30M PRN IV PATENCY; Start 04/18/19 at 14:22; Stop 04/19/19 at 02:21; Status DC Info (PHARMACY MONITORING -- do not chart) 1 each PRN DAILY PRN MC SEE COMMENTS; Start 04/18/19 at 14:30 Apixaban (Eliquis) 5 mg BID PO Last administered on 04/19/19at 21:00; Start 04/19/19 at 09:00 Hydromorphone HCl (Dilaudid) 0.5 mg 1X ONCE IV Last administered on 04/18/19at 20:05; Start 04/18/19 at 19:30; Stop 04/18/19 at 19:31; Status DC Lidocaine/ Epinephrine (LIDOCAINE 1%-EPI 1:100,000 Multi-Dose) 20 ml 1X ONCE INJ ; Start 04/19/19 at 18:15; Stop 04/19/19 at 18:16; Status DC Lidocaine/ Epinephrine (LIDOCAINE 2%-EPI 1:100,000 multi-dose) 20 ml 1X ONCE IJ ; Start 04/19/19 at 18:15; Stop 04/19/19 at 18:16; Status DC Sodium Chloride 1,000 ml @ 1,000 mls/hr Q1H PRN IV hypotension; Start 04/20/19 at 08:28; Stop 04/20/19 at 14:27; Status DC Acetaminophen (Tylenol) 500 mg 1X PRN PRN PO MILD PAIN / TEMP; Start 04/20/19 at 08:30; Stop 04/21/19 at 08:29; Status DC Diphenhydramine HCl (Benadryl) 25 mg 1X PRN PRN IV ITCHING; Start 04/20/19 at 08:30; Stop 04/21/19 at 08:29; Status DC Diphenhydramine HCl (Benadryl) 25 mg 1X PRN PRN IV ITCHING; Start 04/20/19 at 08:30; Stop 04/21/19 at 08:29; Status DC Sodium Chloride 1,000 ml @ 400 mls/hr Q2H30M PRN IV PATENCY; Start 04/20/19 at 08:28; Stop 04/20/19 at 20:27; Status DC Info (PHARMACY MONITORING -- do not chart) 1 each PRN DAILY PRN MC SEE COMMENTS; Start 04/20/19 at 08:30; Status Cancel Cellulose (Surgicel Hemostat 4x8) 1 each 1X ONCE TP ; Start 04/20/19 at 14:00; Stop 04/20/19 at 13:57; Status DC Cellulose (Surgicel Fibrillar 1x2) 1 each 1X ONCE TP Last administered on 04/20/19at 14:22; Start 04/20/19 at 14:00; Stop 04/20/19 at 14:01; Status DC Silver Nitrate/ Potassium Nitrate 1 each 1X ONCE TP Last administered on 04/20/19at 14:22; Start 04/20/19 at 14:15; Stop 04/20/19 at 14:16; Status DC Aspirin (Ecotrin) 81 mg [id number] PO ; Start 04/21/19 at 08:00 Metoprolol Tartrate (Lopressor Vial) 5 mg PRN Q6HRS PRN IVP HR > 110; Start 04/21/19 at 09:00 Sodium Chloride 1,000 ml @ 1,000 mls/hr Q1H PRN IV hypotension; Start 04/21/19 at 12:30; Stop 04/21/19 at 21:00; Status DC Sodium Chloride 1,000 ml @ 400 mls/hr Q2H30M PRN IV PATENCY; Start 04/21/19 at 12:30; Stop 04/21/19 at 21:00; Status DC Info (PHARMACY MONITORING -- do not chart) 1 each PRN DAILY PRN MC SEE COMMENTS; Start 04/21/19 at 12:30; Status UNV Info (PHARMACY MONITORING -- do not chart) 1 each PRN DAILY PRN MC SEE COMMENTS; Start 04/21/19 at 12:30; Status UNV Atorvastatin Calcium (Lipitor) 40 mg QHS PO Last administered on 04/22/19at 11:51; Start 04/22/19 at 10:00 Active Scripts Active Hydrocodone-Apap 10-325 (Hydrocodone Bit/Acetaminophen) 1 Tab Tablet 1 Tab PO PRN Q6HRS PRN 6 Days Acetaminophen 500 Mg Tablet 500 Mg PO PRN Q6HRS PRN 14 Days Reported Miralax (Polyethylene Glycol 3350) 17 Gm Powd.pack 1 Pkt PO DAILY Preservision Areds Tablet (Vit A/Vit C/Vit E/Zinc/Copper) 1 Each Tablet 1 Each PO DAILY Allopurinol 300 Mg Tablet 300 Mg PO DAILY Furosemide 40 Mg Tablet 40 Mg PO DAILY Toprol Xl (Metoprolol Succinate) 50 Mg Tab.er.24h 100 Mg PO DAILY Flomax (Tamsulosin Hcl) 0.4 Mg Cap.er.24h 1 Cap PO HS Amlodipine Besylate 5 Mg Tablet 10 Mg PO DAILY Testosterone Cypionate 200 Mg/1 Ml Vial 1 Ml IM [id number] Vitamin C (Ascorbic Acid) 1,000 Mg Tablet 1,000 Mg PO DAILY Co Q-10 (Ubidecarenone) 200 Mg Capsule 200 Mg PO DAILY Krill Oil 500 Mg Capsule 500 Mg PO Multi-Vitamin Daily (Multivitamin) 1 Each Tablet 1 Each PO DAILY Gemfibrozil 600 Mg Tablet 1 Tab PO DAILY Zetia (Ezetimibe) 10 Mg Tablet 1 Tab PO DAILY Nexium Capsule (Esomeprazole Magnesium) 40 Mg Capsule. 1 Cap PO DAILY Vitals/I & O Vital Sign - Last 24 Hours 04/21/19 04/21/19 04/21/19 04/21/19 16:44 18:28 19:10 19:31 Temp 97.6 97.6 Pulse 82 Resp 18 21 B/P (MAP) 137/59 (85) Pulse Ox 91 91 95 O2 Delivery Room Air Room Air Room Air Room Air O2 Flow Rate 2.0 2.0 04/21/19 04/21/19 04/21/19 04/22/19 22:53 23:25 23:59 03:45 Temp 98.3 98.4 98.3 98.4 Pulse 97 98 Resp 16 22 16 21 B/P (MAP) 135/64 (87) 111/69 (83) Pulse Ox 93 92 O2 Delivery Room Air Room Air Room Air Room Air 04/22/19 04/22/19 04/22/19 04/22/19 05:23 06:39 07:00 08:00 Temp 97.8 97.8 Pulse 98 Resp 20 20 18 B/P (MAP) 140/64 (89) Pulse Ox 90 O2 Delivery Room Air Room Air Room Air Room Air O2 Flow Rate 2.0 11/3/19 11/3/19 11/3/19 11/3/19 08:36 08:36 11:19 11:51 Temp 98.0 98.0 Pulse 98 98 80 Resp 18 B/P (MAP) 140/64 140/64 139/63 (88) Pulse Ox 95 95 O2 Delivery Room Air Room Air O2 Flow Rate 2.0 Intake and Output 04/21/19 04/21/19 04/22/19 15:00 23:00 07:00 Intake Total 720 ml 490 ml 600 ml Output Total 400 ml 200 ml 400 ml Balance 320 ml 290 ml 200 ml SUHAS BASS MD Apr 22, 2019 12:41
--- NOTE | 2019-04-22 12:44 | PDOC3 ---
Discharge Summary Visit Information Date of Admission: Apr 13, 2019 Date of Discharge: Apr 22, 2019 Admitting Diagnosis: Acute on chronic CHF Final Diagnosis Problems Medical Problems: (1) Acute on chronic renal failure Status: Acute (2) CHF exacerbation Status: Acute Brief Hospital Course Allergies Allergies Coded Allergies Type Severity Reaction Last Updated Verified Penicillins Allergy Intermediate rash 03/28/19 Yes amiodarone Allergy Intermediate 04/16/19 Yes tramadol Adverse Reaction Intermediate "depressed" 03/28/19 Yes Vital Signs Vital Signs Date Time Temp Pulse Resp B/P (MAP) Pulse Ox O2 Delivery O2 Flow Rate FiO2 04/22/19 11:51 95 Room Air 2.0 04/22/19 11: 98.0 80 18 139/63 (88) 98.0 Lab Results Laboratory Tests Test 04/20/19 16:47 04/20/19 20:53 04/21/19 03:30 04/21/19 07:08 Glucose (Fingerstick) 133 mg/dL (70-99) 171 mg/dL (70-99) 116 mg/dL (70-99) Sodium Level 136 mmol/L (136-145) Potassium Level 4.0 mmol/L (3.5-5.1) Chloride Level 99 mmol/L (98-107) Carbon Dioxide Level 30 mmol/L (21-32) Anion Gap 7 (6-14) Blood Urea Nitrogen 26 mg/dL (8-26) Creatinine 2.4 mg/dL (0.7-1.3) Estimated GFR (Cockcroft-Gault) 26.3 Glucose Level 140 mg/dL (70-99) Calcium Level 9.0 mg/dL (8.5-10.1) Test 04/21/19 12:18 04/21/19 16:45 04/21/19 20:49 04/22/19 04:45 Glucose (Fingerstick) 134 mg/dL (70-99) 125 mg/dL (70-99) 177 mg/dL (70-99) White Blood Count 7.6 x10^3/uL (4.0-11.0) Red Blood Count 2.91 x10^6/uL (4.30-5.70) Hemoglobin 8.9 g/dL (13.0-17.5) Hematocrit 27.7 % (39.0-53.0) Mean Corpuscular Volume 95 fL (79-100) Mean Corpuscular Hemoglobin 31 pg (25-35) Mean Corpuscular Hemoglobin Concent 32 g/dL (31-37) Red Cell Distribution Width 16.9 % (11.5-14.5) Platelet Count 217 x10^3/uL (140-400) Sodium Level 137 mmol/L (136-145) Potassium Level 3.9 mmol/L (3.5-5.1) Chloride Level 99 mmol/L (98-107) Carbon Dioxide Level 29 mmol/L (21-32) Anion Gap 9 (6-14) Blood Urea Nitrogen 24 mg/dL (8-26) Creatinine 2.3 mg/dL (0.7-1.3) Estimated GFR (Cockcroft-Gault) 27.6 BUN/Creatinine Ratio 10 (6-20) Glucose Level 106 mg/dL (70-99) Calcium Level 8.9 mg/dL (8.5-10.1) Total Bilirubin 0.5 mg/dL (0.2-1.0) Aspartate Amino Transf (AST/SGOT) 18 U/L (15-37) Alanine Aminotransferase (ALT/SGPT) 15 U/L (16-63) Alkaline Phosphatase 77 U/L (46-116) Total Protein 6.5 g/dL (6.4-8.2) Albumin 3.3 g/dL (3.4-5.0) Albumin/Globulin Ratio 1.0 (1.0-1.7) Triglycerides Level 59 mg/dL (0-150) Cholesterol Level 103 mg/dL (0-200) LDL Cholesterol, Calculated 71 mg/dL (0-100) VLDL Cholesterol, Calculated 12 mg/dL (0-40) Non-HDL Cholesterol Calculated 83 mg/dL (0-129) HDL Cholesterol 20 mg/dL (40-60) Cholesterol/HDL Ratio 5.2 Test 04/22/19 07:07 04/22/19 11:33 Glucose (Fingerstick) 135 mg/dL (70-99) 143 mg/dL (70-99) Laboratory Tests Test 04/21/19 16:45 04/21/19 20:49 04/22/19 04:45 04/22/19 07:07 Glucose (Fingerstick) 125 mg/dL (70-99) 177 mg/dL (70-99) 135 mg/dL (70-99) White Blood Count 7.6 x10^3/uL (4.0-11.0) Red Blood Count 2.91 x10^6/uL (4.30-5.70) Hemoglobin 8.9 g/dL (13.0-17.5) Hematocrit 27.7 % (39.0-53.0) Mean Corpuscular Volume 95 fL (79-100) Mean Corpuscular Hemoglobin 31 pg (25-35) Mean Corpuscular Hemoglobin Concent 32 g/dL (31-37) Red Cell Distribution Width 16.9 % (11.5-14.5) Platelet Count 217 x10^3/uL (140-400) Sodium Level 137 mmol/L (136-145) Potassium Level 3.9 mmol/L (3.5-5.1) Chloride Level 99 mmol/L (98-107) Carbon Dioxide Level 29 mmol/L (21-32) Anion Gap 9 (6-14) Blood Urea Nitrogen 24 mg/dL (8-26) Creatinine 2.3 mg/dL (0.7-1.3) Estimated GFR (Cockcroft-Gault) 27.6 BUN/Creatinine Ratio 10 (6-20) Glucose Level 106 mg/dL (70-99) Calcium Level 8.9 mg/dL (8.5-10.1) Total Bilirubin 0.5 mg/dL (0.2-1.0) Aspartate Amino Transf (AST/SGOT) 18 U/L (15-37) Alanine Aminotransferase (ALT/SGPT) 15 U/L (16-63) Alkaline Phosphatase 77 U/L (46-116) Total Protein 6.5 g/dL (6.4-8.2) Albumin 3.3 g/dL (3.4-5.0) Albumin/Globulin Ratio 1.0 (1.0-1.7) Triglycerides Level 59 mg/dL (0-150) Cholesterol Level 103 mg/dL (0-200) LDL Cholesterol, Calculated 71 mg/dL (0-100) VLDL Cholesterol, Calculated 12 mg/dL (0-40) Non-HDL Cholesterol Calculated 83 mg/dL (0-129) HDL Cholesterol 20 mg/dL (40-60) Cholesterol/HDL Ratio 5.2 Test 04/22/19 11:33 Glucose (Fingerstick) 143 mg/dL (70-99) Brief Hospital Course Mr Bardales is a 79-year-old M w/ PMHx hypertension, CHF, PVD, carotid disease s/p recent left CEA on 04/02, and chronic kidney disease, stage 4. He was admitted with increasing shortness of breath and lower extremity edema. He was felt to be in decompensated congestive cardiomyopathy. Seen by cardiology and nephrology in consultation. 04/16: He still has ROBERTS walking 20 feet in the hallway and orthopnea. CR 3.7 today (4.3 on admit). D/w nephrology to continue holding diuretics and cardiology that volume status with a RHC would be appropriate. He is amenable to the likely inevitability of renal replacement therapy given his Cr was 1.7 earlier this year, but has been progressively worsening since September. Has a small hematoma on his left neck, stable. 04/17: Overnight was picking at his CEA site and it began oozing blood, soaked multiple pressures dressings and surgicell. Required topical thrombin for hemostasis. Cr 4.2, BUN 71 today. RHC with RVSP 39 04/18: S/p tunneled HD cath right now. Feeling ok today. No further bleeding from left neck. Cr 4 today. 1st session of dialysis 04/19: He feels wiped out after dialysis yesterday. A bit weak. Cr 2.9, BUN 40 now. Plans for dialysis tomorrow. 04/20: Bleeding overnight from left CEA site, had epi injection per Dr. Ashton. Today seen on dialysis feeling improved. Renal labs improved. Has outpatient dialysis chair. He and his are concerned he has not been out of bed in the past 2 days and still has LE swelling. Plans for vascular surgery repeat eval in AM. Hopefully home in the next day or so. 04/21: Overnight had further bleeding at CEA site. He has been feeling better with dialysis sessions, less short of breath. Still swollen. Feeling weak, wishes to work with therapy. Feeling much better today. No further bleeding from CEA site, but there is gauze adhered to it. He has had several episodes of skin edge bleeding from his left carotid incision since surgery, but no further A/P: Acute on chronic leg edema CHF exacerbation with elevated BNP and interstitial edema on CXR Recent CEA left done by DR Pickard 04/02- ff up vacs sx NOv 4 (already set up- healing very well per acct) Obesity BMI 32 DANNA on CKD - CREAT JUMPED TO 4, now possibly ESRD, needs outpatient dialysis, this is set up Hypertension Normocytic anemia Generalized weakness Paroxysmal A. 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 cr= 1.5 10/01 Diabetes type 2 Dysphagia pulmonary hypertension, mod-severe PLAN: RENAL, VASCULAR, AND CARD CONSULTS PT.OT d/w in room 36 min pt exam, chart review, > 50% of time spent with exam, chart review, pt care coordination Discharge Information Condition at Discharge: Improved Follow Up: Weeks Disposition/Orders: D/C to Home Scheduled Allopurinol (Allopurinol) 300 Mg Tablet, 300 MG PO DAILY for GOUT, (Reported) Entered as Reported by: FCO HUMMEL on 03/29/191127 Last Action: Continued on 04/13/19 1634 by SALTY GARVIN Amlodipine Besylate (Amlodipine Besylate) 5 Mg Tablet, 10 MG PO DAILY for HTN, (Reported) Entered as Reported by: WIL FAMESS on 09/06/182136 Last Action: Continued on 04/13/194 by SALTY GARVIN Ascorbic Acid (Vitamin C) 1,000 Mg Tablet, 1,000 MG PO DAILY, (Reported) Entered as Reported by: NIRMALA BERNSTEIN on 12/16/15928 Last Action: Converted on 04/13/194 by SALTY GARVIN Esomeprazole Magnesium (Nexium Capsule) 40 Mg Capsule., 1 CAP PO DAILY, #30 Ref 5 (Reported) Entered as Reported by: NIRMALA BERNSTEIN on 12/16/15928 Last Action: Converted on 04/13/19 1634 by SALTY GARVIN Ezetimibe (Zetia) 10 Mg Tablet, 1 TAB PO DAILY, #30 Ref 5 (Reported) Entered as Reported by: NIRMALA BERNSTEIN on 12/16/15928 Last Action: Continued on 04/13/19 1634 by SALTY GARVIN Furosemide (Furosemide) 40 Mg Tablet, 40 MG PO DAILY for DAILY, (Reported) Entered as Reported by: FCO HUMMEL on 03/29/191127 Last Action: Continued on 04/13/19 1634 by SALTY GARVIN Gemfibrozil (Gemfibrozil) 600 Mg Tablet, 1 TAB PO DAILY, #60 Ref 5 (Reported) Entered as Reported by: NIRMALA BERNSTEIN on 12/16/15928 Last Action: Continued on 04/13/19 1634 by SALTY GARVIN Metoprolol Succinate (Toprol Xl) 50 Mg Tab.er.24h, 100 MG PO DAILY for hr, (Reported) Entered as Reported by: SUMMER WHITAKER on 09/07/18 1038 Last Action: Continued on 04/13/19 1634 by SALTY GARVIN Multivitamin (Multi-Vitamin Daily) 1 Each Tablet, 1 EACH PO DAILY, (Reported) Entered as Reported by: NIRMALA BERNSTEIN on 12/16/15928 Last Action: Converted on 04/13/191633 by SALTY GARVIN Polyethylene Glycol 3350 (Miralax) 17 Gm Powd.pack, 1 PKT PO DAILY for CONSTIPATION , (Reported) Entered as Reported by: FCO HUMMEL on 03/29/191127 Last Action: Continued on 04/13/19 1634 by ASLTY GARVIN Tamsulosin Hcl (Flomax) 0.4 Mg Cap.er.24h, 1 CAP PO HS for prostate, #30 Ref 11 (Reported) Entered as Reported by: WIL MOORE on 09/06/182136 Last Action: Continued on 04/13/19 1634 by SALTY GARVIN Testosterone Cypionate (Testosterone Cypionate) 200 Mg/1 Ml Vial, 1 ML IM [id number], #10 Ref 1 (Reported) Entered as Reported by: CONNIE MANZANO on 12/23/16 1019 Last Action: HELD on 04/13/19 1634 by SALTY GARVIN Ubidecarenone (Co Q-10) 200 Mg Capsule, 200 MG PO DAILY, (Reported) Entered as Reported by: NIRMALA BERNSTEIN on 12/16/15928 Last Action: Converted on 04/13/194 by SALTY GARVIN Vit A/Vit C/Vit E/Zinc/Copper (Preservision Areds Tablet) 1 Each Tablet, 1 EACH PO DAILY for EYE VITAMINS, (Reported) Entered as Reported by: FCO HUMMEL on 10/10/19 1128 Last Action: Converted on 04/13/194 by SALTY GARVIN Scheduled PRN Acetaminophen (Acetaminophen) 500 Mg Tablet, 500 MG PO PRN Q6HRS PRN for MILD PAIN / TEMP for 14 Days, #60 Prescribed by: KAREN REYES MD on 10/02/18 1130 Last Action: Continued on 04/13/191633 by SALTY GARVIN Hydrocodone Bit/Acetaminophen (Hydrocodone-Apap 10-325 ) 1 Tab Tablet, 1 TAB PO PRN Q6HRS PRN for PAIN for 6 Days, #15 Ref 0 Prescribed by: SUHAS BASS MD on 04/20/19 1252 Miscellaneous Medications Krill Oil (Krill Oil) 500 Mg Capsule, 500 MG PO, (Reported) Entered as Reported by: NIRMALA BERNSTEIN on 12/16/15928 Last Action: Reviewed on 04/13/191633 by SALTY GARVIN Discontinued Medications Losartan Potassium (Losartan Potassium) 100 Mg Tablet, 100 MG PO DAILY, (Reported) Entered as Reported by: NIRMALA BERNSTEIN on 12/16/15928 Last Action: HELD on 04/13/191633 by SUHAS MCINTOSH MD Apr 22, 2019 12:44
--- NOTE | 2019-04-22 13:36 | PDOC ---
SURGICAL PROGRESS NOTE Subjective Patient was seen and examined at the bedside and is doing well. He has had no further bleeding from his left carotid incision site. Vital Signs Vital Signs Date Time Temp Pulse Resp B/P (MAP) Pulse Ox O2 Delivery O2 Flow Rate FiO2 04/22/19 11:51 95 Room Air 2.0 04/22/19 11:19 98.0 80 18 139/63 (88) 98.0 I&O Intake and Output 04/22/19 07:00 Intake Total 1810 ml Output Total 1000 ml Balance 810 ml Intake Oral 1810 ml Output Urine Total 1000 ml General: Alert, Oriented X3, Cooperative, No acute distress HEENT: Atraumatic, Other (left neck incision is clean dry and intact without evidence of bleeding or hematoma) Lungs: Clear to auscultation, Normal air movement Neuro: Normal gait, Normal speech, Strength at 5/5 X4 ext, Normal tone, Sensation intact, Cranial nerves 3-12 NL Labs Laboratory Tests Test 04/20/19 16:47 04/20/19 20:53 04/21/19 03:30 04/21/19 07:08 Glucose (Fingerstick) 133 mg/dL (70-99) 171 mg/dL (70-99) 116 mg/dL (70-99) Sodium Level 136 mmol/L (136-145) Potassium Level 4.0 mmol/L (3.5-5.1) Chloride Level 99 mmol/L (98-107) Carbon Dioxide Level 30 mmol/L (21-32) Anion Gap 7 (6-14) Blood Urea Nitrogen 26 mg/dL (8-26) Creatinine 2.4 mg/dL (0.7-1.3) Estimated GFR (Cockcroft-Gault) 26.3 Glucose Level 140 mg/dL (70-99) Calcium Level 9.0 mg/dL (8.5-10.1) Test 04/21/19 12:18 04/21/19 16:45 04/21/19 20:49 04/22/19 04:45 Glucose (Fingerstick) 134 mg/dL (70-99) 125 mg/dL (70-99) 177 mg/dL (70-99) White Blood Count 7.6 x10^3/uL (4.0-11.0) Red Blood Count 2.91 x10^6/uL (4.30-5.70) Hemoglobin 8.9 g/dL (13.0-17.5) Hematocrit 27.7 % (39.0-53.0) Mean Corpuscular Volume 95 fL (79-100) Mean Corpuscular Hemoglobin 31 pg (25-35) Mean Corpuscular Hemoglobin Concent 32 g/dL (31-37) Red Cell Distribution Width 16.9 % (11.5-14.5) Platelet Count 217 x10^3/uL (140-400) Sodium Level 137 mmol/L (136-145) Potassium Level 3.9 mmol/L (3.5-5.1) Chloride Level 99 mmol/L (98-107) Carbon Dioxide Level 29 mmol/L (21-32) Anion Gap 9 (6-14) Blood Urea Nitrogen 24 mg/dL (8-26) Creatinine 2.3 mg/dL (0.7-1.3) Estimated GFR (Cockcroft-Gault) 27.6 BUN/Creatinine Ratio 10 (6-20) Glucose Level 106 mg/dL (70-99) Calcium Level 8.9 mg/dL (8.5-10.1) Total Bilirubin 0.5 mg/dL (0.2-1.0) Aspartate Amino Transf (AST/SGOT) 18 U/L (15-37) Alanine Aminotransferase (ALT/SGPT) 15 U/L (16-63) Alkaline Phosphatase 77 U/L (46-116) Total Protein 6.5 g/dL (6.4-8.2) Albumin 3.3 g/dL (3.4-5.0) Albumin/Globulin Ratio 1.0 (1.0-1.7) Triglycerides Level 59 mg/dL (0-150) Cholesterol Level 103 mg/dL (0-200) LDL Cholesterol, Calculated 71 mg/dL (0-100) VLDL Cholesterol, Calculated 12 mg/dL (0-40) Non-HDL Cholesterol Calculated 83 mg/dL (0-129) HDL Cholesterol 20 mg/dL (40-60) Cholesterol/HDL Ratio 5.2 Test 04/22/19 07:07 04/22/19 11:33 Glucose (Fingerstick) 135 mg/dL (70-99) 143 mg/dL (70-99) Laboratory Tests Test 04/21/19 16:45 04/21/19 20:49 04/22/19 04:45 04/22/19 07:07 Glucose (Fingerstick) 125 mg/dL (70-99) 177 mg/dL (70-99) 135 mg/dL (70-99) White Blood Count 7.6 x10^3/uL (4.0-11.0) Red Blood Count 2.91 x10^6/uL (4.30-5.70) Hemoglobin 8.9 g/dL (13.0-17.5) Hematocrit 27.7 % (39.0-53.0) Mean Corpuscular Volume 95 fL (79-100) Mean Corpuscular Hemoglobin 31 pg (25-35) Mean Corpuscular Hemoglobin Concent 32 g/dL (31-37) Red Cell Distribution Width 16.9 % (11.5-14.5) Platelet Count 217 x10^3/uL (140-400) Sodium Level 137 mmol/L (136-145) Potassium Level 3.9 mmol/L (3.5-5.1) Chloride Level 99 mmol/L (98-107) Carbon Dioxide Level 29 mmol/L (21-32) Anion Gap 9 (6-14) Blood Urea Nitrogen 24 mg/dL (8-26) Creatinine 2.3 mg/dL (0.7-1.3) Estimated GFR (Cockcroft-Gault) 27.6 BUN/Creatinine Ratio 10 (6-20) Glucose Level 106 mg/dL (70-99) Calcium Level 8.9 mg/dL (8.5-10.1) Total Bilirubin 0.5 mg/dL (0.2-1.0) Aspartate Amino Transf (AST/SGOT) 18 U/L (15-37) Alanine Aminotransferase (ALT/SGPT) 15 U/L (16-63) Alkaline Phosphatase 77 U/L (46-116) Total Protein 6.5 g/dL (6.4-8.2) Albumin 3.3 g/dL (3.4-5.0) Albumin/Globulin Ratio 1.0 (1.0-1.7) Triglycerides Level 59 mg/dL (0-150) Cholesterol Level 103 mg/dL (0-200) LDL Cholesterol, Calculated 71 mg/dL (0-100) VLDL Cholesterol, Calculated 12 mg/dL (0-40) Non-HDL Cholesterol Calculated 83 mg/dL (0-129) HDL Cholesterol 20 mg/dL (40-60) Cholesterol/HDL Ratio 5.2 Test 04/22/19 11:33 Glucose (Fingerstick) 143 mg/dL (70-99) Problem List Problems Medical Problems: (1) Acute on chronic renal failure Status: Acute (2) CHF exacerbation Status: Acute Assessment/Plan Patient is stable from the standpoint of his carotid artery. I would recommend antiplatelet therapy but hold therapeutic anticoagulation for now. He is had no bleeding overnight and I believe he'll be safe to discharge home. Next If the patient requires permanent dialysis access, I would preserve the left upper extremity for potential use for dialysis access. BERNARD MOCK DO Apr 22, 2019 13:36
[2019-04-22] MEDS ORDERED: CLOP75TA PO (13:39)
== END 2019-04-22 15:12 | disposition home or self-care (01) | DRG 673 ==
LOC: ER 15:08 → 2 SOUTH 15:50
PROVIDERS: ADMIT Internal Medicine; ATTEND Internal Medicine
PROC: 4A023N6 Measurement of Cardiac Sampling and Pressure, Right Heart, Percutaneous Approach (ICD-10-PCS; 2019-04-17)
PROC: B2111ZZ Fluoroscopy of Multiple Coronary Arteries using Low Osmolar Contrast (ICD-10-PCS; 2019-04-17)
PROC: 0JH63XZ Insertion of Tunneled Vascular Access Device into Chest Subcutaneous Tissue and Fascia, Percutaneous Approach (ICD-10-PCS; principal; 2019-04-18)
PROC: 02H633Z Insertion of Infusion Device into Right Atrium, Percutaneous Approach (ICD-10-PCS; 2019-04-18)
PROC: B5181ZA Fluoroscopy of Superior Vena Cava using Low Osmolar Contrast, Guidance (ICD-10-PCS; 2019-04-18)
PROC: B548ZZA Ultrasonography of Superior Vena Cava, Guidance (ICD-10-PCS; 2019-04-18)
PROC: 5A1D70Z Performance of Urinary Filtration, Intermittent, Less than 6 Hours Per Day (ICD-10-PCS; 2019-04-18)
PROC: 3E033XZ Introduction of Vasopressor into Peripheral Vein, Percutaneous Approach (ICD-10-PCS; 2019-04-19)
PROC: 5A1D70Z Performance of Urinary Filtration, Intermittent, Less than 6 Hours Per Day (ICD-10-PCS; 2019-04-20)
PROC: 5A1D70Z Performance of Urinary Filtration, Intermittent, Less than 6 Hours Per Day (ICD-10-PCS; 2019-04-21)
PROC: 5A1D70Z Performance of Urinary Filtration, Intermittent, Less than 6 Hours Per Day (ICD-10-PCS; 2019-04-22)
DX: N17.0 Acute kidney failure with tubular necrosis (principal); I50.43 Acute on chronic combined systolic (congestive) and diastolic (congestive) heart failure; I13.2 Hypertensive heart and chronic kidney disease with heart failure and with stage 5 chronic kidney disease, or end stage renal disease; I42.0 Dilated cardiomyopathy; D68.32 Hemorrhagic disorder due to extrinsic circulating anticoagulants; N18.6 End stage renal disease; I25.10 Atherosclerotic heart disease of native coronary artery without angina pectoris; E78.00 Pure hypercholesterolemia, unspecified; E11.51 Type 2 diabetes mellitus with diabetic peripheral angiopathy without gangrene; H54.61 Unqualified visual loss, right eye, normal vision left eye; M19.90 Unspecified osteoarthritis, unspecified site; M10.9 Gout, unspecified; Z96.649 Presence of unspecified artificial hip joint; K21.9 Gastro-esophageal reflux disease without esophagitis; E78.5 Hyperlipidemia, unspecified; I27.20 Pulmonary hypertension, unspecified; N40.0 Benign prostatic hyperplasia without lower urinary tract symptoms; Z68.32 Body mass index [BMI] 32.0-32.9, adult; E66.9 Obesity, unspecified; E11.22 Type 2 diabetes mellitus with diabetic chronic kidney disease; R13.10 Dysphagia, unspecified; D64.9 Anemia, unspecified; I48.0 Paroxysmal atrial fibrillation; N28.1 Cyst of kidney, acquired; I25.5 Ischemic cardiomyopathy; I25.2 Old myocardial infarction; Z88.0 Allergy status to penicillin; Z88.8 Allergy status to other drugs, medicaments and biological substances; Z86.73 Personal history of transient ischemic attack (TIA), and cerebral infarction without residual deficits; Z79.01 Long term (current) use of anticoagulants; Z95.1 Presence of aortocoronary bypass graft; Z82.49 Family history of ischemic heart disease and other diseases of the circulatory system
CPT/HCPCS: 36415; 36558; 71045; 76937; 77001; 80048; 80053; 80061; 80069; 80307; 81001; 82553; 82962; 83540; 83550; 83735; 83880; 84484; 85014; 85018; 85025; 85027; 85610; 85730; 86704; 86705; 86706; 87340; 93005; 93451; 99152; 99153; A4215; C1750; C1773; C1892; J1170; J1644; J2250; J3010; J3370; J3490; J7030; 97116; 97530; 97535; 99285-25; G0378

== ENCOUNTER → 2019-04-13 | Outpatient (CLI) | payer MEDICARE ==
[2019-04-03 15:00] VITALS: BP 151/62
[~2019-04-13] MED LIST changes: -HEPARIN SODIUM 5,000 UNIT in IV RINGERS,LACTATED 500ML 500 ML IRR ONE; -IV RINGERS,LACTATED 1000ML 1,000 ML IV SCH; -LIDOCAINE 1% PF 2 ML VIAL. ID PRN; -ONDANSETRON PF 4 MG/2 ML VIAL. IV PRN; -PROCHLORPERAZINE 10 MG/2 ML VIAL. IV PRN; -VANCOMYCIN 1GM IVPB FOR OMNI 250 ML IV PRN; -fentaNYL PF VIAL 100 MCG/2 ML VIAL IV PRN
[2019-04-13 13:03] LABS: CALCIUM 9.5 mg/dL (8.5-10.1); CREATININE 4.3 mg/dL (0.7-1.3); GFR 13.4; POTASSIUM 4.6 mmol/L (3.5-5.1)
== END | disposition home or self-care (01) ==
LOC: LAB 12:24
PROVIDERS: ATTEND Internal Medicine Cardiovascular Disease
DX: I50.22 Chronic systolic (congestive) heart failure (principal)
CPT/HCPCS: 36415; 80048; 83880

== ENCOUNTER → 2019-07-18 | Outpatient (CLI) | payer MEDICARE ==
[2019-07-18 13:57] LABS: CREATININE 2.4 mg/dL (0.7-1.3); GFR 26.3; POTASSIUM 3.3 mmol/L (3.5-5.1)
== END | disposition home or self-care (01) ==
LOC: LAB 13:08
PROVIDERS: ATTEND Internal Medicine Nephrology
DX: N17.9 Acute kidney failure, unspecified (principal)
CPT/HCPCS: 36415; 80048

== ENCOUNTER 2021-02-16 14:11 | Emergency (ER) | payer MEDICARE ==
[~2021-02-16] VITALS: Ht 182.9 cm; Wt 86.0 kg
[~2021-02-16 14:11] MED LIST changes: +ALPR0.254 PO; +AMLO-186 PO; -AMLO5TAB10 PO; +APIX2.5T PO; +ASCO100019 PO; -ASCO10002 PO; +BUME2TAB3 PO; +CEFD300C PO; +DICL100G54 TP; +DOXA2TAB2 PO; +GEMF600T20 PO; -GEMF600T8 PO; +HYDR-2868 PO; +ISOS30TA68 PO; +METO2.5T PO; +PANT40TA77 PO; +TRIA15OI TP
[2021-02-16 17:25] LABS: CLARITY,URINE BLOODY; COLOR,URINE RED
[2021-02-16 17:26] LABS: BACTERIA,URINE 0 /HPF (0-FEW); RBC,URINE TNTC /HPF (0-2)
[2021-02-16 18:15] LABS: BASO % 0 % (0-3); EOS # 0.2 x10^3/uL (0.0-0.7); EOS % 2 % (0-3); HEMATOCRIT 42.7 % (39.0-53.0); HEMOGLOBIN 14.3 g/dL (13.0-17.5); LYMPH # 1.6 x10^3/uL (1.0-4.8); LYMPH % 16 % (24-48); MEAN CORPUSCULAR HEMOGLOBIN 34 pg (25-35); MEAN CORPUSCULAR HGB CONC 33 g/dL (31-37); MEAN CORPUSCULAR VOLUME 101 fL (79-100); MONO # 0.9 x10^3/uL (0.0-1.1); MONO % 9 % (0-9); NEUT # 7.5 x10^3/uL (1.8-7.7); NEUT % 73 % (31-73); PLATELET COUNT 186 x10^3/uL (140-400); RED BLOOD COUNT 4.23 x10^6/uL (4.30-5.70); RED CELL DISTRIBUTION WIDTH 15.7 % (11.5-14.5); WHITE BLOOD COUNT 10.3 x10^3/uL (4.0-11.0)
[2021-02-16 18:24] LABS: PROTHROMBIN TIME PATIENT 15.5 SEC (11.7-14.0)
[2021-02-16 19:00] LABS: CALCIUM 9.9 mg/dL (8.5-10.1); GFR 32.3; POTASSIUM 3.7 mmol/L (3.5-5.1)
[2021-02-16] MEDS ORDERED: CEFD300C PO (19:04)
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
[2021-02-16 19:06] LABS: ALBUMIN 3.5 g/dL (3.4-5.0); TOTAL BILIRUBIN 0.7 mg/dL (0.2-1.0)
[2021-02-16 19:14] VITALS: BP 179/84
== END 2021-02-16 22:38 | disposition home or self-care (01) ==
LOC: ER 14:11
DX: R31.9 Hematuria, unspecified (principal); E11.22 Type 2 diabetes mellitus with diabetic chronic kidney disease; I12.9 Hypertensive chronic kidney disease with stage 1 through stage 4 chronic kidney disease, or unspecified chronic kidney disease; N18.9 Chronic kidney disease, unspecified; I48.91 Unspecified atrial fibrillation; I25.10 Atherosclerotic heart disease of native coronary artery without angina pectoris; I25.2 Old myocardial infarction; E78.00 Pure hypercholesterolemia, unspecified; Z86.73 Personal history of transient ischemic attack (TIA), and cerebral infarction without residual deficits; Z95.1 Presence of aortocoronary bypass graft; Z88.0 Allergy status to penicillin; Z88.6 Allergy status to analgesic agent; Z91.041 Radiographic dye allergy status; Z88.8 Allergy status to other drugs, medicaments and biological substances
CPT/HCPCS: 36415; 80053; 81001; 85025; 85610; 85730; 99283